=== PATIENT | female | born 1945 | race Caucasian/White ===

== ENCOUNTER 2016-09-10 09:51 | Outpatient (CLI) | payer MEDICARE, OTHER | END 2016-09-10 09:52 | disposition home or self-care (01) | DX: N39.0 Urinary tract infection, site not specified (principal) ==

== ENCOUNTER 2016-10-10 09:38 | Inpatient (IN) | payer MEDICARE, OTHER ==
[2016-10-10] MEDS ORDERED: ONDANSETRON ODT 4 MG TABLET ONE (11:32)
[2016-10-10] MEDS ORDERED: SODIUM CHLORIDE FLUSH 0.9% 10 ML SYRINGE IVP PRN (14:22)
[2016-10-10] MEDS: NS W/20 MEQ KCL 1,000 ML IV SCH (16:20)
[2016-10-10] MEDS ORDERED: cefTRIAXone 1 GM VIAL IV SCH (17:00)
[2016-10-10] MEDS: PHENAZOPYRIDINE 100 MG TABLET PO SCH ×2 (18:50→21:03)
[2016-10-10] MEDS: cefTRIAXone 1 GM in SODIUM CHLORIDE 0.9% MINIBAG 100 ML IV SCH (18:54)
[2016-10-10] MEDS: PANTOPRAZOLE 40 MG TABLET PO SCH (20:30)
[2016-10-10] MEDS: valACYclovir 500 MG TABLET PO SCH (20:30)
[2016-10-10] MEDS: CARVEDILOL 3.125 MG TABLET PO SCH (20:30)
[2016-10-10] MEDS: ATORVASTATIN 10 MG TABLET PO SCH (20:30)
[2016-10-10] MEDS: ONDANSETRON 4 MG/2 ML VIAL IVP PRN (20:43)
[2016-10-10] MEDS: SODIUM CHLORIDE FLUSH 0.9% 10 ML SYRINGE IVP SCH (20:45)
[2016-10-10] MEDS: POTASSIUM CHLORIDE 20 MEQ TABLET PO SCH (20:52)
[2016-10-10] MEDS ORDERED: MYCOPHENOLATE MOFETIL 250 MG CAPSULE PO ONE (20:58)
[2016-10-10] MEDS ORDERED: NON FORMULARY MED (Dronedarone Hcl [Multaq] 400 MG) PO SCH (21:00)
[2016-10-10] MEDS: MYCOPHENOLATE MOFETIL 1000 MG PO SCH (21:05)
[2016-10-11] MEDS: NS W/20 MEQ KCL 1,000 ML IV SCH ×2 (04:12→10:51)
[2016-10-11] MEDS: ONDANSETRON 4 MG/2 ML VIAL IVP PRN (07:02)
[2016-10-11] MEDS ORDERED: MIN OIL/DIMETHICON/COCONUT OIL 92 GM TUBE TOP ONE (08:20)
[2016-10-11] MEDS: valACYclovir 500 MG TABLET PO SCH ×2 (08:24→21:36)
[2016-10-11] MEDS: PHENAZOPYRIDINE 100 MG TABLET PO SCH ×3 (08:24→21:39)
[2016-10-11] MEDS: ASPIRIN EC 81 MG TABLET PO SCH (08:25)
[2016-10-11] MEDS: DULoxetine 30 MG CAPSULE PO SCH (08:25)
[2016-10-11] MEDS: CHOLECALCIFEROL 1,000 UNIT TABLET PO SCH (08:25)
[2016-10-11] MEDS: predniSONE 5 MG TABLET PO SCH (08:25)
[2016-10-11] MEDS: PANTOPRAZOLE 40 MG TABLET PO SCH ×2 (08:25→21:38)
[2016-10-11] MEDS: FERROUS SULFATE 325 MG TABLET PO SCH (08:25)
[2016-10-11] MEDS: MULTIVITAMIN TABLET PO SCH (08:25)
[2016-10-11] MEDS: POTASSIUM CHLORIDE 20 MEQ TABLET PO SCH ×2 (08:25→21:38)
[2016-10-11] MEDS: ENOXAPARIN 40 MG/0.4 ML SYRINGE SUBQ SCH (08:25)
[2016-10-11] MEDS: CYANOCOBALAMIN 500 MCG TABLET PO SCH (08:25)
[2016-10-11] MEDS: POLYETHYLENE GLYCOL 3350 17 GM PACKET PO SCH ×2 (08:26→08:27)
[2016-10-11] MEDS: MULTAQ 400 MG PO SCH ×4 (08:28→21:35)
[2016-10-11] MEDS: SODIUM CHLORIDE FLUSH 0.9% 10 ML SYRINGE IVP SCH ×3 (08:29→21:59)
[2016-10-11] MEDS: MYCOPHENOLATE MOFETIL 1000 MG PO SCH (08:29)
[2016-10-11] MEDS: CARVEDILOL 3.125 MG TABLET PO SCH ×2 (08:30→21:37)
[2016-10-11] MEDS ORDERED: NON FORMULARY MED (Mirabegron [Myrbetriq] 50 MG) PO SCH (09:00)
[2016-10-11] MEDS ORDERED: VITAMIN B COMPLEX PO SCH (09:00)
[2016-10-11] MEDS: MYCOPHENOLATE MOFETIL 250 MG CAPSULE PO SCH ×2 (10:49→21:36)
[2016-10-11] MEDS: cefTRIAXone 1 GM in SODIUM CHLORIDE 0.9% MINIBAG 100 ML IV SCH (16:59)
[2016-10-11] MEDS: ATORVASTATIN 10 MG TABLET PO SCH (21:35)
[2016-10-12] MEDS: NS W/20 MEQ KCL 1,000 ML IV SCH ×3 (00:23→21:14)
[2016-10-12] MEDS: SODIUM CHLORIDE FLUSH 0.9% 10 ML SYRINGE IVP SCH ×2 (06:30→08:18)
[2016-10-12] MEDS: PHENAZOPYRIDINE 100 MG TABLET PO SCH ×3 (06:34→21:14)
[2016-10-12] MEDS: FERROUS SULFATE 325 MG TABLET PO SCH (08:14)
[2016-10-12] MEDS: DULoxetine 30 MG CAPSULE PO SCH (08:14)
[2016-10-12] MEDS: MULTAQ 400 MG PO SCH ×2 (08:14→21:20)
[2016-10-12] MEDS: MULTIVITAMIN TABLET PO SCH (08:15)
[2016-10-12] MEDS: ASPIRIN EC 81 MG TABLET PO SCH (08:15)
[2016-10-12] MEDS: CARVEDILOL 3.125 MG TABLET PO SCH ×2 (08:15→21:15)
[2016-10-12] MEDS: CHOLECALCIFEROL 1,000 UNIT TABLET PO SCH (08:15)
[2016-10-12] MEDS: MYCOPHENOLATE MOFETIL 250 MG CAPSULE PO SCH ×2 (08:15→21:15)
[2016-10-12] MEDS: PANTOPRAZOLE 40 MG TABLET PO SCH ×2 (08:15→21:15)
[2016-10-12] MEDS: valACYclovir 500 MG TABLET PO SCH ×2 (08:15→21:15)
[2016-10-12] MEDS: predniSONE 5 MG TABLET PO SCH (08:16)
[2016-10-12] MEDS: POLYETHYLENE GLYCOL 3350 17 GM PACKET PO SCH ×2 (08:16→08:18)
[2016-10-12] MEDS: CYANOCOBALAMIN 500 MCG TABLET PO SCH (08:16)
[2016-10-12] MEDS: ENOXAPARIN 40 MG/0.4 ML SYRINGE SUBQ SCH (08:17)
[2016-10-12] MEDS: cefTRIAXone 1 GM in SODIUM CHLORIDE 0.9% MINIBAG 100 ML IV SCH (17:09)
[2016-10-12] MEDS: SACCHAROMYCES BOULARDII 250 MG CAPSULE PO SCH (17:09)
[2016-10-12] MEDS: ATORVASTATIN 10 MG TABLET PO SCH (21:16)
[2016-10-13] MEDS: SODIUM CHLORIDE FLUSH 0.9% 10 ML SYRINGE IVP SCH ×4 (00:18→22:22)
[2016-10-13] MEDS ORDERED: COSYNTROPIN 0.25 MG VIAL IVP ONE (05:01)
[2016-10-13] MEDS: PHENAZOPYRIDINE 100 MG TABLET PO SCH ×3 (05:13→22:21)
[2016-10-13] MEDS: NS W/20 MEQ KCL 1,000 ML IV SCH (06:54)
[2016-10-13] MEDS: ONDANSETRON 4 MG/2 ML VIAL IVP PRN (07:05)
[2016-10-13] MEDS ORDERED: PROCHLORPERAZINE 10 MG/2 ML VIAL IVP PRN (08:18)
[2016-10-13] MEDS: ACETAMINOPHEN 325 MG TABLET PO PRN ×2 (08:42→13:33)
[2016-10-13] MEDS: oxyCODONE 5 MG TABLET PO PRN ×2 (08:43→13:34)
[2016-10-13] MEDS: ENOXAPARIN 40 MG/0.4 ML SYRINGE SUBQ SCH (09:55)
[2016-10-13] MEDS: predniSONE 5 MG TABLET PO SCH (09:56)
[2016-10-13] MEDS: SACCHAROMYCES BOULARDII 250 MG CAPSULE PO SCH ×2 (09:56→17:37)
[2016-10-13] MEDS: CHOLECALCIFEROL 1,000 UNIT TABLET PO SCH (09:56)
[2016-10-13] MEDS: PANTOPRAZOLE 40 MG TABLET PO SCH ×2 (09:56→22:19)
[2016-10-13] MEDS: CARVEDILOL 3.125 MG TABLET PO SCH ×2 (09:56→22:19)
[2016-10-13] MEDS: FERROUS SULFATE 325 MG TABLET PO SCH (09:56)
[2016-10-13] MEDS: DULoxetine 30 MG CAPSULE PO SCH (09:56)
[2016-10-13] MEDS: valACYclovir 500 MG TABLET PO SCH ×2 (09:57→22:20)
[2016-10-13] MEDS: MULTIVITAMIN TABLET PO SCH (09:57)
[2016-10-13] MEDS: CYANOCOBALAMIN 500 MCG TABLET PO SCH (09:57)
[2016-10-13] MEDS: MYCOPHENOLATE MOFETIL 250 MG CAPSULE PO SCH ×2 (09:57→22:20)
[2016-10-13] MEDS: MULTAQ 400 MG PO SCH ×2 (09:57→22:22)
[2016-10-13] MEDS: ASPIRIN EC 81 MG TABLET PO SCH (09:57)
[2016-10-13] MEDS: POLYETHYLENE GLYCOL 3350 17 GM PACKET PO SCH ×2 (10:04)
[2016-10-13] MEDS: cefTRIAXone 1 GM in SODIUM CHLORIDE 0.9% MINIBAG 100 ML IV SCH (17:37)
[2016-10-13] MEDS: ATORVASTATIN 10 MG TABLET PO SCH (22:19)
[2016-10-14] MEDS: PHENAZOPYRIDINE 100 MG TABLET PO SCH ×2 (05:28→14:28)
[2016-10-14] MEDS: ONDANSETRON 4 MG/2 ML VIAL IVP PRN (08:06)
[2016-10-14] MEDS: CYANOCOBALAMIN 500 MCG TABLET PO SCH (09:25)
[2016-10-14] MEDS: MULTIVITAMIN TABLET PO SCH (09:25)
[2016-10-14] MEDS: PANTOPRAZOLE 40 MG TABLET PO SCH (09:25)
[2016-10-14] MEDS: valACYclovir 500 MG TABLET PO SCH (09:25)
[2016-10-14] MEDS: CHOLECALCIFEROL 1,000 UNIT TABLET PO SCH (09:25)
[2016-10-14] MEDS: ASPIRIN EC 81 MG TABLET PO SCH (09:25)
[2016-10-14] MEDS: CARVEDILOL 3.125 MG TABLET PO SCH (09:26)
[2016-10-14] MEDS: MYCOPHENOLATE MOFETIL 250 MG CAPSULE PO SCH (09:26)
[2016-10-14] MEDS: SACCHAROMYCES BOULARDII 250 MG CAPSULE PO SCH (09:26)
[2016-10-14] MEDS: DULoxetine 30 MG CAPSULE PO SCH (09:26)
[2016-10-14] MEDS: predniSONE 5 MG TABLET PO SCH (09:26)
[2016-10-14] MEDS: FERROUS SULFATE 325 MG TABLET PO SCH (09:26)
[2016-10-14] MEDS: ENOXAPARIN 40 MG/0.4 ML SYRINGE SUBQ SCH (09:30)
[2016-10-14] MEDS: POLYETHYLENE GLYCOL 3350 17 GM PACKET PO SCH ×2 (09:30)
[2016-10-14] MEDS: MULTAQ 400 MG PO SCH (09:31)
[2016-10-14] MEDS ORDERED: DIPHENOX/ATROPINE 2.5/0.025 MG TABLET PO PRN (10:34)
[2016-10-14] MEDS ORDERED: CHOLESTYRAMINE 4 GM PACKET PO SCH (11:00)
[2016-10-14] MEDS: SODIUM CHLORIDE FLUSH 0.9% 10 ML SYRINGE IVP SCH (14:29)
[2016-10-14] MEDS: cefTRIAXone 1 GM in SODIUM CHLORIDE 0.9% MINIBAG 100 ML IV SCH (17:02)
== END 2016-10-14 18:15 | disposition home or self-care (01) | DRG 690 ==
DX: N39.0 Urinary tract infection, site not specified (principal); E27.3 Drug-induced adrenocortical insufficiency; B96.20 Unspecified Escherichia coli [E. coli] as the cause of diseases classified elsewhere; R19.7 Diarrhea, unspecified; G89.29 Other chronic pain; E86.0 Dehydration; G47.30 Sleep apnea, unspecified; T38.0X5S Adverse effect of glucocorticoids and synthetic analogues, sequela; M35.00 Sjogren syndrome, unspecified; G62.9 Polyneuropathy, unspecified; E78.5 Hyperlipidemia, unspecified; F32.9 Major depressive disorder, single episode, unspecified; R32 Unspecified urinary incontinence; I45.81 Long QT syndrome; Z96.89 Presence of other specified functional implants; Z87.442 Personal history of urinary calculi; Z98.1 Arthrodesis status; Z79.52 Long term (current) use of systemic steroids; Z79.82 Long term (current) use of aspirin; Z87.891 Personal history of nicotine dependence; Z79.899 Other long term (current) drug therapy; Z79.891 Long term (current) use of opiate analgesic

== ENCOUNTER 2016-11-23 14:55 | Outpatient (CLI) | payer MEDICARE, OTHER | END 2016-11-23 14:56 | disposition home or self-care (01) | DX: G47.33 Obstructive sleep apnea (adult) (pediatric) (principal) | CPT/HCPCS: 99203; G0463 ==

== ENCOUNTER 2016-12-16 21:12 | Outpatient (CLI) | payer MEDICARE, OTHER | END 2016-12-16 21:13 | disposition home or self-care (01) | LOC: SC 21:12 | PROVIDERS: ATTEND Internal Medicine Pulmonary Disease | DX: G47.33 Obstructive sleep apnea (adult) (pediatric) (principal); G47.61 Periodic limb movement disorder; Z68.31 Body mass index [BMI] 31.0-31.9, adult | CPT/HCPCS: 95810 ==

== ENCOUNTER 2017-01-05 13:37 | Outpatient (CLI) | payer MEDICARE, OTHER | END 2017-01-05 13:38 | disposition home or self-care (01) | LOC: SC 13:37 | PROVIDERS: ATTEND Nurse Practitioner Family | DX: G47.33 Obstructive sleep apnea (adult) (pediatric) (principal); G47.61 Periodic limb movement disorder | CPT/HCPCS: 99213; G0463; 99212 ==

== ENCOUNTER 2017-01-17 16:46 | Emergency (ER) | payer MEDICARE, OTHER ==
--- NOTE | 2017-01-17 16:59 | ED Physician Documentation ---
PD HPI SKIN - Stated complaint Stated Complaint: NECK PAIN - Chief complaint Chief Complaint: Ext Problem - History obtained from History obtained from: Patient - History of Present Illness Timing - onset: How many days ago (3) Timing - duration: Days (3) Timing - details: Gradual onset (she has had tenderness at area of neck surgery with thin skin overlying area of bone and prior surgical fusions that had gotten infected. She has seen her neck surgeon and there is plan for revison of the hardware and muscle flapping over the area to provide some tissue cushion in the area. She is not noticing 3 days of some drainage at times from small red area that has developed. No general symptoms such as fever, nausea, aches.) , Waxing and waning Location: Neck Quality / character: Draining (small drop of fluid intermittently for the past 3 days. She says the whole 3 days worth total would be only about a teaspoon.). No: Painful Associated symptoms: No: Fever, Myalgias, N/V/D Similar symptoms before: Diagnosis (she did have MRSA infection of neck post-op and had 3 months of IV abx for it to clear. Had been doing well in the interval. ) Recently seen: Clinic Review of Systems Constitutional: denies: Fever, Chills, Myalgias Nose: reports: Congestion (2 weeks ago, improved.). 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 Cardiovascular: Other HEENT: Cataracts Derm: Other - Present Medications Home Medications: Ambulatory Orders Medication Instructions Recorded Confirmed Atorvastatin Calcium [Lipitor] 20 mg PO QPM 05/31/13 10/10/16 Carvedilol [Coreg] 12.5 mg PO BID 05/31/13 10/10/16 Mycophenolate Mofetil [Cellcept] 1,000 mg PO BID 05/31/13 10/10/16 Pantoprazole Sodium 40 mg PO BID 05/31/13 10/10/16 Potassium Chloride [K-Dur] 10 meq PO BID 05/31/13 10/10/16 Cholecalciferol (Vitamin D3) 2,000 unit PO DAILY 08/08/15 10/10/16 [Vitamin D3] Cyanocobalamin (Vitamin B-12) 1,000 mcg PO DAILY 08/08/15 10/10/16 [Vitamin B-12] Dronedarone HCl [Multaq] 400 mg PO BID 08/08/15 10/10/16 HYDROmorphone AGRICULTURE INTERN [Dilaudid AGRICULTURE INTERN 6.859 mg IV Q24H 08/08/15 10/10/16 (Use AGRICULTURE INTERN Order Set)] Mirabegron [Myrbetriq] 50 mg PO DAILY 08/08/15 10/10/16 Vitamin B Complex [B Complex] 1 each PO DAILY 08/08/15 10/10/16 Aspirin [Aspirin EC] 81 mg PO DAILY 10/10/16 10/10/16 Duloxetine HCl [Cymbalta] 60 mg ORAL DAILY 10/10/16 10/10/16 Ferrous Sulfate 325 mg PO DAILY 10/10/16 10/10/16 Multivitamin [Theragran] 1 tab PO DAILY 10/10/16 10/10/16 Polyethylene Glycol 3350 [Miralax] 17 gm PO DAILY 10/10/16 10/10/16 Prednisone 5 mg PO DAILY 10/10/16 10/10/16 Valacyclovir HCl [Valacyclovir] 500 mg PO BID 10/10/16 10/10/16 Cholestyramine [Questran] 4 gm PO BID #30 packet 10/14/16 Diphenoxylate/Atropine [Lomotil] 1 tab PO QID PRN #60 tablet 10/14/16 Nitrofurantoin Macrocrystal 100 mg PO BID #6 capsule 10/14/16 [Macrodantin] Mupirocin 1 applic TP TID #15 oint...g. 01/17/17 Sulfamethox/Trimeth 800/160 1 each PO BID #14 tablet 01/17/17 [Bactrim Ds 800/160] - Allergies Allergies/Adverse Reactions: Allergies Allergy/AdvReac Type Severity Reaction Status Date / Time iodine Allergy Rash Verified 10/10/16 09:41 NSAIDS (Non-Steroidal Allergy abd pain Verified 10/10/16 09:41 Anti-Inflamma pregabalin [From Lyrica] Allergy muscle Verified 08/08/15 13:07 spasms zolpidem tartrate * AdvReac Hallucinati Verified 10/10/16 09:41 [From Kd] ons artichokes Allergy Unknown Uncoded 10/11/16 12:00 cantelope Allergy Unknown Uncoded 10/11/16 12:00 shellfish Allergy Unknown Uncoded 10/11/16 12:00 - Social History Does the pt smoke?: No Smoking Status: Former smoker Does the pt drink ETOH?: No Does the pt have substance abuse?: No - Immunizations Immunizations are current?: Yes PD ED PE NORMAL - Vitals Vital signs reviewed: Yes - General General: Alert and oriented X 3, Well developed/nourished - Neck Neck: Supple, no meningeal sign, No adenopathy, Other (posterior neck at lower cervical showing thin skin overlying spinous processes. There is focal area of redness about 1 cm diameter, without fluctuance nor current drainage. Small closed hole in center. No tenderness. I did small misael with scalpel tip at center and no fluid came out, but I did culture from the subcutaneous area. ) Results - Vitals Vitals: Vital Signs - 24 hr 01/17/17 01/17/17 16:53 18:56 Temperature 36.5 C Heart Rate 74 79 Respiratory 16 18 Rate Blood Pressure 108/54 L 122/79 O2 Saturation 98 98 Oxygen O2 Source Room air - Labs Labs: Laboratory Tests 01/17/17 01/17/17 01/17/17 17:54 17:54 17:54 WBC 6.6 RBC 3.18 L Hgb 10.2 L Hct 32.1 L MCV 100.9 H MCH 32.2 H MCHC 31.9 L RDW 14.3 Plt Count 238 MPV 8.4 Neut # 4.8 Lymph # 1.0 L Clarke # 0.5 Eos # 0.2 Baso # 0.1 Absolute Nucleated RBC 0.00 Nucleated RBCs 0.0 ESR 31 H C-Reactive Protein < 1.0 - Rads (name of study) cervical spine Radiology: Prelim report reviewed, EMP read contemporaneously (operative changes. There is thin soft tissue over C7 spinous process. Small area of air under skin at site I had swabbed. No obvious abscess underneath. ) PD MEDICAL DECISION MAKING - ED course Complexity details: considered differential (mild elevate ESR. CT does not show deeper involvement. Will cover with abx pending culture, with Staph coverage in particular. She is seeing Spine surgeon next week, but to have her call and see him this week. ), d/w patient Departure - Departure Disposition: Home, Self Care Clinical Impression: Skin infection Condition: Stable Record reviewed to determine appropriate education?: Yes Instructions: ED Abscess Abx Tx Only Ch Follow-Up: Gama Juan MD [Primary Care Provider] - Prescriptions: Sulfamethox/Trimeth 800/160 [Bactrim Ds 800/160] 1 each PO BID #14 tablet Mupirocin 1 applic TP TID #15 oint...g. Comments: Cleanse the sore area twice daily and apply mupirocin antibiotic ointment. Bactrim oral antibiotic twice daily for a week. Follow up with PMD or Neck surgeon in 2-3 days, call for appt. Recheck if worsening in the meanwhile. Discharge Date/Time: 01/17/17 18:57
[2017-01-17 18:13] LABS: BASOPHILS # (AUTO) 0.1 10^3/uL (0.0-0.1); BASOPHILS % (AUTO) 1.4 %; EOSINOPHILS # (AUTO) 0.2 10^3/uL (0.0-0.7); EOSINOPHILS % (AUTO) 3.1 %; HCT - HEMATOCRIT 32.1 % (37.0-47.0); HGB - HEMOGLOBIN 10.2 g/dL (12.0-16.0); LYMPHOCYTES % (AUTO) 14.7 %; MEAN CORPUSCULAR HEMOGLOBIN 32.2 pg (27.0-31.0); MEAN CORPUSCULAR HGB CONC 31.9 g/dL (32.0-36.0); MEAN CORPUSCULAR VOLUME 100.9 fL (81.0-99.0); MEAN PLATELET VOLUME 8.4 fL (7.9-10.8); MONOCYTES # (AUTO) 0.5 10^3/uL (0.0-1.0); MONOCYTES % (AUTO) 7.2 %; NEUTROPHILS # (AUTO) 4.8 10^3/uL (1.5-6.6); NEUTROPHILS % (AUTO) 73.6 %; RED BLOOD COUNT 3.18 10^6/uL (4.20-5.40); RED CELL DISTRIBUTION WIDTH 14.3 % (12.0-15.0); UNCORRECTED WHITE BLOOD COUNT 6.6 x10^3/uL; WHITE BLOOD COUNT 6.6 x10^3/uL (4.8-10.8)
--- NOTE | 2017-01-17 18:29 | CT Preliminary Report ---
Exam: CT Cervical Spine W/O Impression: 1. Extensive postsurgical changes are again demonstrated, as documented above. 2. There appears be solid interbody fusion from C3-C7. 3. Changes of previous instrumented, posterolateral fusion again demonstrated from C2-T2. No evidence of metal hardware failure. 4. It is noted that the distal tip of the T1 spinous process lies just deep to the skin surface in mi dline, lower back. In addition, there appears be a small collection of gas within the soft tissues ad jacent to the spinous process. This suggests the possibility of ulceration. Clinical correlation is a dvised. SITE ID: [id number]
[2017-01-17] MEDS ORDERED: MUPIROCIN 2% OINT 1 GM TOP STA (18:44)
[2017-01-17] MEDS ORDERED: SULFAMETH/TRIMETH DS 800/160 MG TABLET PO STA (18:44)
[2017-01-17] MEDS ORDERED: SULFAMETH/TRIMETH DS 800/160 MG TABLET PO ONE (18:47)
[2017-01-17] MEDS ORDERED: MUPIROCIN 2% OINT 1 GM ONE (18:50)
[2017-01-17 18:57] VITALS: BP 122/79
--- NOTE | 2017-01-17 19:48 | CT Report ---
CT CERVICAL SPINE WITHOUT CONTRAST INDICATION: 71-year-old female with history of previous neck surgery. The patient's skin is sore at a bout C7. TECHNIQUE: Helical scan with reconstruction into 2 mm axial images. In addition, sagittal and coronal reformations have been generated. This examination was performed using a bone algorithm. Images are available in soft tissue and bone w indows. In accordance with CT protocol optimization, one or more of the following dose reduction techniques w ere utilized for this exam: automated exposure control, adjustment of mA and/or KV based on patient s ize, or use of iterative reconstructive technique. COMPARISON: Soft tissue neck CT 10/28/2014. FINDINGS: Extensive postsurgical changes are again demonstrated. There is evidence of previous anterior cervica l diskectomy and fusion (ACDF) at C4-C5, C5-C6 and C6-C7. There does appear to be trabecular bone tra versing the disk spaces at all 3 levels suggesting that there is solid interbody fusion. Also demonst rated is probable ankylosis across the C3-C4 disk space. It is unclear whether this relates to prior surgery or represents the sequela of previous infection, prior trauma or advanced degenerative disk d isease. There is evidence of previous bilateral laminectomy at C3, C4 and C5. Again demonstrated are changes of previous instrumented, posterolateral fusion from C2 to T2. Laminar screws again demonstrated at C 2 bilaterally with lateral mass screws at C3, C4, C5 and C6 bilaterally. Pedicle screws are again dem onstrated at T1 and T2. There are interconnecting rods in place bilaterally. The posterior fusion sushma dware appears intact. No obvious lucency is identified, surrounding any of the screws to suggest the possibility of loosening or infection. Again demonstrated is grade 1 anterolisthesis of C2 on C3 (roughly 2.5 mm) and minimal anterolisthesi s of C3 on C4, stable. There is a mild dextroconvex scoliosis, unchanged. Alignment is otherwise unre markable. Assessment for spinal stenosis is very limited due to artifact from fusion hardware; however, no obvi ous stenosis is demonstrated. There is multilevel degenerative facet arthrosis with associated bony h ypertrophy. In addition, there is mild uncovertebral hypertrophy at a few levels. No significant asso ciated foraminal encroachment. Of note, the distal tip of the T1 spinous process lies just deep to the skin surface. There appears b e a small collection of gas, within the soft tissues, adjacent to the distal tip of the T1 spinous pr ocess on the right (see images 72 through 74 of series #4). This suggests the possibility of ulcer or other pathology in the soft tissues adjacent to the T1 spinous process. No obvious pathology is iden tified in the soft tissues adjacent to C7. There is minor scarring at the right lung apex. No discrete mass/nodule is identified in the imaged u pper lungs. IMPRESSION: 1. Extensive postsurgical changes are again demonstrated, as documented above. 2. There appears be solid interbody fusion from C3-C7. 3. Changes of previous instrumented, posterolateral fusion again demonstrated from C2-T2. No evidence of metal hardware failure. 4. It is noted that the distal tip of the T1 spinous process lies just deep to the skin surface in mi dline, lower back. In addition, there appears be a small collection of gas within the soft tissues ad jacent to the spinous process. This suggests the possibility of ulceration. Clinical correlation is a dvised. Referring Provider Line: [phone] SITE ID: [id number]
== END 2017-01-17 18:57 | disposition home or self-care (01) ==
LOC: ED 16:46
DX: L08.9 Local infection of the skin and subcutaneous tissue, unspecified (principal); M54.2 Cervicalgia; Z98.1 Arthrodesis status; Z86.14 Personal history of Methicillin resistant Staphylococcus aureus infection; Z87.891 Personal history of nicotine dependence; Z79.82 Long term (current) use of aspirin
CPT/HCPCS: 36415; 72125; 85025; 85651; 86140; 87070; 87205; 99283; 99284; A9270

== ENCOUNTER 2017-01-18 14:22 | Outpatient (CLI) | payer MEDICARE, OTHER ==
--- NOTE | 2017-01-19 13:52 | XRAY Report ---
TWO VIEW CHEST: 01/18/2017 CLINICAL INDICATION: Pneumonia, history of lupus. COMPARISON: 10/10/2016. FINDINGS: Frontal and lateral views of the chest demonstrate a normal cardiac silhouette. A right ar m PICC has been removed. Spinal fusion hardware and stimulator are stable. There is minimal patchy ai r space disease at the bases, which may reflect early infiltrate. No effusion or pneumothorax is pres ent. IMPRESSION: MINIMAL PATCHY AIR SPACE OPACITIES AT THE BASES. JOB #: [id number] EXT JOB #:[id number]
--- NOTE | 2017-01-19 13:54 | XRAY Report ---
THREE VIEW RIGHT KNEE: 01/18/2017 CLINICAL INDICATION: Knee pain, history of lupus. FINDINGS: Frontal, lateral and sunrise views of the right knee demonstrate mild osteoarthritis, with chondrocalcinosis. There is no evidence of acute fracture. No effusion is seen. IMPRESSION: MILD RIGHT KNEE OSTEOARTHRITIS. JOB #: [id number] EXT JOB #:[id number]
== END 2017-01-18 14:23 | disposition home or self-care (01) ==
LOC: DI 14:22
PROVIDERS: ATTEND Family Medicine
DX: J18.9 Pneumonia, unspecified organism (principal); M17.11 Unilateral primary osteoarthritis, right knee; M32.10 Systemic lupus erythematosus, organ or system involvement unspecified
CPT/HCPCS: 71020

== ENCOUNTER 2017-02-09 22:15 | Outpatient (CLI) | payer MEDICARE, OTHER | END 2017-02-09 22:16 | disposition home or self-care (01) | LOC: SC 22:15 | PROVIDERS: ATTEND Internal Medicine Pulmonary Disease | DX: G47.33 Obstructive sleep apnea (adult) (pediatric) (principal); G47.61 Periodic limb movement disorder; Z68.31 Body mass index [BMI] 31.0-31.9, adult | CPT/HCPCS: 95811 ==

== ENCOUNTER 2017-02-28 15:01 | Outpatient (CLI) | payer MEDICARE, OTHER ==
[2017-02-28 20:19] LABS: THYROID STIMULATING HORMONE 1.25 uIU/mL (0.34-5.60)
== END 2017-02-28 15:02 | disposition home or self-care (01) ==
LOC: LAB.F 15:01
PROVIDERS: ATTEND Internal Medicine
DX: R06.09 Other forms of dyspnea (principal)
CPT/HCPCS: 36415; 83880; 84439; 84443

== ENCOUNTER 2017-03-02 10:30 | Outpatient (CLI) | payer MEDICARE, OTHER | END 2017-03-02 10:31 | disposition critical access hospital (66) | LOC: EMS 10:30 | PROVIDERS: ATTEND Surgery | DX: R25.2 Cramp and spasm (principal) | CPT/HCPCS: A0425; A0429 ==

== ENCOUNTER 2017-03-02 10:40 | Emergency (ER) | payer MEDICARE, OTHER ==
[2017-03-02] MEDS ORDERED: ACETAMINOPHEN 1,000 MG/100 ML 100 ML IV STA (10:46)
[2017-03-02] MEDS ORDERED: SODIUM CHLORIDE 0.9% 1,000 ML IV ONE (10:46)
[2017-03-02] MEDS ORDERED: diazePAM INJ 5 MG/ML SYRINGE IVP STA (10:46)
--- NOTE | 2017-03-02 10:50 | ED Physician Documentation ---
History of Present Illness - Stated complaint Stated Complaint: MALONE - Chief complaint Chief Complaint: General - Additonal information Additional information: hx from pt 71 f many orthopedic issues and surgeries in the past, healing wound to upper T spine scar seen by her specialist yesterday also adrenal insuff 2/2 steroids for her interstitial lung dz on cellcept for lupus has a neurostimulator and dilaudid pump for back problems - she says both are working normally she saw her specialist yesterday and they have alarms if malfunction or empty takes lasix and her dose was recently increased had int sharp Headaches yesterday in varying locations woke up this AM with a severe diffuse MALONE no focal numbness or weakness no fever or new neck stiffness (prior ortho and spine issues) no CO exposure no ill contacts and also severe diffuse mm cramps she thinks her electrolytes are off no fever cough NVD Review of Systems Constitutional: denies: Fever, Chills Cardiac: denies: Chest pain / pressure Respiratory: denies: Dyspnea, Cough GI: denies: Abdominal Pain, Nausea, Vomiting Musculoskeletal: reports: Other (mm cramps). denies: Neck pain, Back pain Neurologic: reports: Headache. 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 Cardiovascular: Other HEENT: Cataracts Derm: Other - Present Medications Home Medications: Ambulatory Orders Medication Instructions Recorded Confirmed Atorvastatin Calcium [Lipitor] 20 mg PO QPM 05/31/13 03/02/17 Carvedilol [Coreg] 12.5 mg PO BID 05/31/13 03/02/17 Mycophenolate Mofetil [Cellcept] 1,000 mg PO BID 05/31/13 03/02/17 Pantoprazole Sodium 40 mg PO DAILY 05/31/13 03/02/17 Potassium Chloride [K-Dur] 10 meq PO BID 05/31/13 03/02/17 Cholecalciferol (Vitamin D3) 2,000 unit PO DAILY 08/08/15 03/02/17 [Vitamin D3] Cyanocobalamin (Vitamin B-12) 1,000 mcg PO DAILY 08/08/15 03/02/17 [Vitamin B-12] Dronedarone HCl [Multaq] 400 mg PO BID 08/08/15 03/02/17 Vitamin B Complex [B Complex] 1 each PO DAILY 08/08/15 03/02/17 Aspirin [Aspirin EC] 81 mg PO DAILY 10/10/16 03/02/17 Duloxetine HCl [Cymbalta] 60 mg ORAL DAILY 10/10/16 03/02/17 Ferrous Sulfate 45 mg PO DAILY 10/10/16 03/02/17 Multivitamin [Theragran] 1 tab PO DAILY 10/10/16 03/02/17 Prednisone 5 mg PO DAILY 10/10/16 03/02/17 Valacyclovir HCl [Valacyclovir] 500 mg PO BID 10/10/16 03/02/17 Diphenoxylate/Atropine [Lomotil] 1 tab PO QID PRN #60 tablet 10/14/16 03/02/17 Mupirocin 1 applic TP TID #15 oint...g. 01/17/17 03/02/17 Acetaminophen 2 tab TID PRN 03/02/17 03/02/17 Ascorbic Acid [Vitamin C] 2 tab DAILY 03/02/17 03/02/17 Calcium 500 Mg Gummie 1 tab DAILY 03/02/17 Cephalexin [Keflex] 500 mg PO Q6H #28 capsule 03/02/17 Cyanocobalamin (Vitamin B-12) 1 tab DAILY 03/02/17 03/02/17 [Vitamin B-12] Diphenoxylate/Atropine [Lomotil] 1 tab PRN PRN 03/02/17 03/02/17 Dronedarone HCl [Multaq] 1 tab BID 03/02/17 03/02/17 Furosemide [Lasix] 20 mg DAILY 03/02/17 03/02/17 Hydromorphone HCl/0.9% NaCl/Pf 0 mg DAILY 03/02/17 03/02/17 [Hydromorphone 20 mg/100 ml-Ns] Lactobacillus Acidophilus 1 tab DAILY 03/02/17 03/02/17 [Probiotic Acidophilus] Ondansetron Odt [Zofran Odt] 1 tab PRN 03/02/17 Polyethylene Glycol 3350 [Miralax] 1 tab DAILY 03/02/17 03/02/17 - Allergies Allergies/Adverse Reactions: Allergies Allergy/AdvReac Type Severity Reaction Status Date / Time iodine Allergy Rash Verified 10/10/16 09:41 NSAIDS (Non-Steroidal Allergy abd pain Verified 10/10/16 09:41 Anti-Inflamma pregabalin [From Lyrica] Allergy muscle Verified 08/08/15 13:07 spasms zolpidem tartrate * AdvReac Hallucinati Verified 10/10/16 09:41 [From Ambien] ons artichokes Allergy Unknown Uncoded 10/11/16 12:00 cantelope Allergy Unknown Uncoded 10/11/16 12:00 shellfish Allergy Unknown Uncoded 10/11/16 12:00 - Social History Does the pt smoke?: No Smoking Status: Former smoker Does the pt drink ETOH?: No Does the pt have substance abuse?: No - Immunizations Immunizations are current?: Yes PD ED PE NORMAL - Vitals Vital signs reviewed: Yes - General General: Alert and oriented X 3 - HEENT HEENT: Atraumatic, PERRL, EOMI, Other (globes soft, no injection, no TA TTP) - Neck Neck: Supple, no meningeal sign, Other (open but non erthematous small wound along midline upper t spine surgical sca, no purulent drainage) - Cardiac Cardiac: RRR - Respiratory Respiratory: No respiratory distress, Clear bilaterally - Abdomen Abdomen: Soft, Non tender - Derm Derm: Normal color - Extremities Extremities: No deformity - Neuro Neuro: Other (occasianlly cries and and has a mm spasm adn then relaxes, nl speech, no motor sensory deficits) Results - Vitals Vitals: Vital Signs - 24 hr 03/02/17 03/02/17 03/02/17 10:41 11:50 11:55 Temperature 37.0 C Heart Rate 86 Respiratory 18 Rate Blood Pressure 137/51 H O2 Saturation 95 88 L 93 03/02/17 12:16 Temperature Heart Rate 93 Respiratory 16 Rate Blood Pressure 113/48 L O2 Saturation 98 Oxygen O2 Source Nasal cannula - Labs Labs: Laboratory Tests 03/02/17 03/02/17 03/02/17 11:19 11:19 12:30 WBC 7.1 RBC 3.15 L Hgb 10.2 L Hct 31.6 L MCV 100.3 H MCH 32.2 H MCHC 32.1 RDW 14.7 Plt Count 196 MPV 7.9 Neut # 6.1 Lymph # 0.7 L Garza # 0.2 Eos # 0.1 Baso # 0.0 Absolute Nucleated RBC 0.00 Nucleated RBCs 0.0 Sodium 142 Potassium 3.5 Chloride 107 Carbon Dioxide 29 Anion Gap 6.0 BUN 19 Creatinine 0.7 Estimated GFR (MDRD) 82 L Glucose 101 H Calcium 9.0 Phosphorus 2.4 L Magnesium 1.7 Urine Color YELLOW Urine Clarity CLEAR Urine pH 6.5 Ur Specific [place] 1.015 Urine Protein NEGATIVE Urine Glucose (UA) NEGATIVE Urine Ketones NEGATIVE Urine Occult Blood NEGATIVE Urine Nitrite POSITIVE H Urine Bilirubin NEGATIVE Urine Urobilinogen 0.2 (NORMAL) Ur Leukocyte Esterase NEGATIVE Urine RBC 0-5 Urine WBC 4-5 Ur Squamous Epith Cells RARE Squamous Urine Bacteria Moderate H Ur Microscopic Review INDICATED Urine Culture Comments INDICATED - Rads (name of study) CTH Radiology: See rad report (no acute) PD MEDICAL DECISION MAKING - ED course ED course: lytes were fine (phos of > 2 unlikely to be symptomatic and not needing emergent repletion) CTH neg - suspect MALONE related to UTI - considered and feel SAH unlikely - do not feel this pt with long standing spine problems, prior surgeries, and a neurostimulator should have an LP since MALONE gone and CT neg, michael as MALONE was not the CC - only one of several concerns today anemia is chronic UA was + and may explain some of pt sx - she says she has freq UTIs and conveniently has a urology appt this Tuesday after IVF ofirmev valium and a lido patch she feels much much better, the spasms are better, gave PO meds for UTI, she feels Ok to go home now, will fup urology Tuesday and return if worse Departure - Departure Disposition: Home, Self Care Clinical Impression: Muscle spasm UTI (urinary tract infection) Qualifiers: Urinary tract infection type: acute cystitis Hematuria presence: without hematuria Qualified Code(s): N30.00 - Acute cystitis without hematuria Headache Qualifiers: Headache type: unspecified Headache chronicity pattern: acute headache Intractability: not intractable Qualified Code(s): R51 - Headache Condition: Good Instructions: ED UTI Cystitis Female Follow-Up: Chente Calle MD [Primary Care Provider] - Prescriptions: Cephalexin [Keflex] 500 mg PO Q6H #28 capsule Comments: Rest and drink plenty of fluids Remove the lidocaine patch before bed tonight Follow up with you urologist Tuesday as scheduled - the urine culture should be available for him/her to review by then Return if worse
[2017-03-02 11:28] LABS: BASOPHILS % (AUTO) 0.6 %; EOSINOPHILS # (AUTO) 0.1 10^3/uL (0.0-0.7); EOSINOPHILS % (AUTO) 1.7 %; HCT - HEMATOCRIT 31.6 % (37.0-47.0); HGB - HEMOGLOBIN 10.2 g/dL (12.0-16.0); LYMPHOCYTES # (AUTO) 0.7 10^3/uL (1.5-3.5); LYMPHOCYTES % (AUTO) 10.2 %; MEAN CORPUSCULAR HEMOGLOBIN 32.2 pg (27.0-31.0); MEAN CORPUSCULAR HGB CONC 32.1 g/dL (32.0-36.0); MEAN CORPUSCULAR VOLUME 100.3 fL (81.0-99.0); MEAN PLATELET VOLUME 7.9 fL (7.9-10.8); MONOCYTES # (AUTO) 0.2 10^3/uL (0.0-1.0); MONOCYTES % (AUTO) 2.2 %; NEUTROPHILS # (AUTO) 6.1 10^3/uL (1.5-6.6); NEUTROPHILS % (AUTO) 85.3 %; RED BLOOD COUNT 3.15 10^6/uL (4.20-5.40); RED CELL DISTRIBUTION WIDTH 14.7 % (12.0-15.0); UNCORRECTED WHITE BLOOD COUNT 7.1 x10^3/uL; WHITE BLOOD COUNT 7.1 x10^3/uL (4.8-10.8)
[2017-03-02] MEDS ORDERED: diazePAM INJ 5 MG/ML SYRINGE ONE (11:34)
[2017-03-02] MEDS ORDERED: ACETAMINOPHEN 1,000 MG/100 ML 100 ML IV ONE (11:34)
[2017-03-02 11:37] LABS: CREATININE 0.7 mg/dL (0.4-1.0); MAGNESIUM 1.7 mg/dL (1.7-2.8); PHOSPHORUS 2.4 mg/dL (2.5-4.6); POTASSIUM 3.5 mmol/L (3.5-5.0)
--- NOTE | 2017-03-02 11:49 | CT Preliminary Report ---
Exam: CT Head W/O IMPRESSION: Generalized age-related cortical atrophic changes without evidence of acute intracranial abnormality. [facility] SITE ID: [id number]
--- NOTE | 2017-03-02 11:52 | CT Report ---
EXAM: CT HEAD EXAM DATE: 03/02/2017 11:28 AM. CLINICAL HISTORY: Severe headache. COMPARISON: 08/21/2007. TECHNIQUE: Multiaxial CT images were obtained from the foramen magnum to the vertex. IV contrast: Non e. Reformats: Coronal. In accordance with CT protocol optimization, one or more of the following dose reduction techniques w ere utilized for this exam: automated exposure control, adjustment of mA and/or KV based on patient s ize, or use of iterative reconstructive technique. FINDINGS: Parenchyma: No intraparenchymal hemorrhage. No evidence of mass, midline shift, or CT findings of acu te infarction. Jalloh-white differentiation is distinct. Extraaxial Spaces: Normal for age. No subdural or epidural collections identified. Ventricles: The ventricles and cortical sulci are enlarged, consistent with age-related tissue loss. Sinuses: Imaged paranasal sinuses, orbits, and mastoids show no significant abnormality. Bones: No evidence of fracture or calvarial defect. Other: Diffuse chronic microangiopathic white matter changes are evident. IMPRESSION: Generalized age-related cortical atrophic changes without evidence of acute intracranial abnormality. [facility] Referring Provider Line: [phone] SITE ID: [id number]
[2017-03-02 12:39] LABS: BILIRUBIN,URINE NEGATIVE (NEGATIVE); PH,URINE 6.5 PH (5.0-7.5); UA w/ MICROSCOPIC CHARGE YES
[2017-03-02 12:44] LABS: UR CULTURE IF IND INDICATED
[2017-03-02] MEDS ORDERED: cefTRIAXone 1 GM in SODIUM CHLORIDE 0.9% MINIBAG 100 ML IV STA (13:23)
[2017-03-02] MEDS ORDERED: CEPHALEXIN 250 MG CAPSULE PO STA (13:24)
[2017-03-02] MEDS ORDERED: CEPHALEXIN 250 MG CAPSULE PO ONE (13:26)
[2017-03-02] MEDS ORDERED: LIDOCAINE PATCH 5% TOP STA (13:31)
[2017-03-02] MEDS ORDERED: LIDOCAINE PATCH 5% TOP ONE (13:33)
[2017-03-02] MEDS ORDERED: cefTRIAXone 1 GM VIAL ONE (13:42)
[2017-03-02 13:56] VITALS: BP 127/84
== END 2017-03-02 14:17 | disposition home or self-care (01) ==
LOC: EDUNIT# → ED 10:40
DX: M62.838 Other muscle spasm (principal); N30.00 Acute cystitis without hematuria; R51 Headache; G62.9 Polyneuropathy, unspecified; I73.9 Peripheral vascular disease, unspecified; I49.3 Ventricular premature depolarization; G89.29 Other chronic pain; Z87.891 Personal history of nicotine dependence; Z96.9 Presence of functional implant, unspecified
CPT/HCPCS: 36415; 70450; 80048; 81001; 83735; 84100; 85025; 87077; 87086; 87181; 93005; 96374; 96375; 99284; A9270; J0131; 81003

== ENCOUNTER 2017-03-07 15:39 | Outpatient (CLI) | payer MEDICARE, OTHER | END 2017-03-07 15:40 | disposition home or self-care (01) | LOC: SC 15:39 | PROVIDERS: ATTEND Nurse Practitioner Family | DX: G47.33 Obstructive sleep apnea (adult) (pediatric) (principal); G47.61 Periodic limb movement disorder | CPT/HCPCS: 99214; G0463; 99212 ==

== ENCOUNTER 2017-03-08 14:09 | Outpatient (CLI) | payer MEDICARE, OTHER ==
--- NOTE | 2017-03-09 08:01 | Mammography Report ---
DIGITAL DIAGNOSTIC RIGHT MAMMOGRAM: 03/08/2017 CLINICAL INDICATION: History of benign breast biopsy. TECHNIQUE: Right CC, MLO, true lateral, laterally exaggerated craniocaudal views. COMPARISON: 07/27/2016, 07/20/2016, 10/16/2013, 04/23/2010, 04/17/2009, 01/31/2008. The right breast again demonstrates heterogeneously dense fibroglandular parenchyma. Biopsy marker i n the right posterolateral breast is stable. A few punctate, typically benign calcifications are pre sent. No suspicious masses, clustered microcalcifications, or regions of architectural distortion ar e identified. IMPRESSION: BENIGN FINDINGS. RECOMMENDATION: ROUTINE ANNUAL SCREENING, NEXT DUE IN JULY 2017, UNLESS OTHERWISE CLINICALLY IND ICATED. BIRADS CATEGORY: 2, BENIGN FINDINGS. STANDARD QUALIFYING STATEMENTS 1. This examination was reviewed with the aid of Computed-Aided Detection (CAD). 2. A negative or benign imaging report should not delay biopsy if clinically suspicious findings are present. Consider surgical consultation if warranted. More than 5% of cancers are not identified b y imaging. 3. Dense breasts may obscure an underlying neoplasm. JOB #: [id number] EXT JOB #:
== END 2017-03-08 14:10 | disposition home or self-care (01) ==
LOC: DI 14:09
PROVIDERS: ATTEND Internal Medicine
DX: N64.59 Other signs and symptoms in breast (principal)
CPT/HCPCS: 71020

== ENCOUNTER 2017-03-08 14:37 | Outpatient (CLI) | payer MEDICARE, OTHER ==
--- NOTE | 2017-03-08 19:54 | XRAY Report ---
TWO VIEW CHEST: 03/08/2017 CLINICAL INDICATION: Pneumonia. Frontal and lateral views of the chest are compared to previous films of 01/18/2017. The cardiac crystal houette is within normal limits. Right basilar air-space disease is increasing. No effusion or pneu mothorax is seen. A spinal stimulator and postoperative changes are stable. IMPRESSION: INCREASING RIGHT BASILAR INFILTRATE FROM 01/18/2017. INTERVAL RESOLUTION OF LEFT BASILA R AIR-SPACE DISEASE. JOB #: [id number] EXT JOB #:[id number]
== END 2017-03-08 14:38 | disposition home or self-care (01) ==
LOC: DI 14:37
PROVIDERS: ATTEND Internal Medicine
DX: J18.9 Pneumonia, unspecified organism (principal)
CPT/HCPCS: 71020

== ENCOUNTER 2017-05-19 15:54 | Outpatient (CLI) | payer MEDICARE, OTHER ==
[2017-05-19 16:44] LABS: BASOPHILS # (AUTO) 0.1 10^3/uL (0.0-0.1); BASOPHILS % (AUTO) 1.2 %; EOSINOPHILS # (AUTO) 0.1 10^3/uL (0.0-0.7); HCT - HEMATOCRIT 34.3 % (37.0-47.0); HGB - HEMOGLOBIN 11.1 g/dL (12.0-16.0); LYMPHOCYTES % (AUTO) 14.3 %; MEAN CORPUSCULAR HEMOGLOBIN 32.1 pg (27.0-31.0); MEAN CORPUSCULAR HGB CONC 32.4 g/dL (32.0-36.0); MEAN CORPUSCULAR VOLUME 99.3 fL (81.0-99.0); MEAN PLATELET VOLUME 8.6 fL (7.9-10.8); MONOCYTES # (AUTO) 0.4 10^3/uL (0.0-1.0); MONOCYTES % (AUTO) 6.3 %; NEUTROPHILS # (AUTO) 5.5 10^3/uL (1.5-6.6); NEUTROPHILS % (AUTO) 77.2 %; RED BLOOD COUNT 3.46 10^6/uL (4.20-5.40); RED CELL DISTRIBUTION WIDTH 14.2 % (12.0-15.0); UNCORRECTED WHITE BLOOD COUNT 7.1 x10^3/uL; WHITE BLOOD COUNT 7.1 x10^3/uL (4.8-10.8)
--- NOTE | 2017-05-20 08:32 | XRAY Report ---
TWO-VIEW CHEST: 05/19/2017 CLINICAL INDICATION: Abnormal lung sounds. COMPARISON: 03/08/2017 FINDINGS: Frontal and lateral views of the chest demonstrate a normal cardiac silhouette. Previousl y seen right basilar airspace disease has resolved. Multilevel spinal fusion, vertebroplasties, and spinal stimulator are stable, as are bilateral shoulder replacements. IMPRESSION: RESOLUTION OF PREVIOUSLY SEEN RIGHT BASILAR INFILTRATE. JOB #: [id number] EXT JOB #:[id number]
== END 2017-05-19 15:55 | disposition home or self-care (01) ==
LOC: DI 15:54
PROVIDERS: ATTEND Internal Medicine
DX: R91.8 Other nonspecific abnormal finding of lung field (principal); Z51.81 Encounter for therapeutic drug level monitoring
CPT/HCPCS: 36415; 71020; 85025

== ENCOUNTER 2017-05-30 15:05 | Outpatient (CLI) | payer MEDICARE, OTHER | END 2017-05-30 15:06 | disposition home or self-care (01) | LOC: SC 15:05 | PROVIDERS: ATTEND Nurse Practitioner Family | DX: G47.33 Obstructive sleep apnea (adult) (pediatric) (principal) | CPT/HCPCS: 99214; G0463; 99212 ==

== ENCOUNTER 2017-08-30 14:36 | Outpatient (CLI) | payer MEDICARE, OTHER ==
[2017-08-30 15:16] LABS: BASOPHILS # (AUTO) 0.1 10^3/uL (0.0-0.1); BASOPHILS % (AUTO) 1.8 %; EOSINOPHILS # (AUTO) 0.1 10^3/uL (0.0-0.7); EOSINOPHILS % (AUTO) 2.4 %; HGB - HEMOGLOBIN 10.1 g/dL (12.0-16.0); LYMPHOCYTES # (AUTO) 1.5 10^3/uL (1.5-3.5); LYMPHOCYTES % (AUTO) 25.6 %; MEAN CORPUSCULAR HEMOGLOBIN 32.4 pg (27.0-31.0); MEAN PLATELET VOLUME 9.2 fL (7.9-10.8); MONOCYTES # (AUTO) 0.7 10^3/uL (0.0-1.0); MONOCYTES % (AUTO) 12.5 %; NEUTROPHILS # (AUTO) 3.5 10^3/uL (1.5-6.6); NEUTROPHILS % (AUTO) 57.7 %; PLT - PLATELET COUNT 197 10^3/uL (130-450); RED BLOOD COUNT 3.12 10^6/uL (4.20-5.40); RED CELL DISTRIBUTION WIDTH 14.3 % (12.0-15.0)
[2017-08-30 15:25] LABS: CHOL/HDL RATIO 2.3 (<4.4); CHOLESTEROL 147 mg/dL; HDL CHOLESTEROL 63 mg/dL; LDL CHOLESTEROL,CALCULATED 57 mg/dL; LDL/HDL RATIO 0.9 (<4.4); VLDL CHOLESTEROL 27 mg/dL
== END 2017-08-30 14:37 | disposition home or self-care (01) ==
LOC: LAB 14:36
PROVIDERS: ATTEND Internal Medicine Pulmonary Disease
DX: J84.9 Interstitial pulmonary disease, unspecified (principal); Z79.52 Long term (current) use of systemic steroids; Z51.81 Encounter for therapeutic drug level monitoring; Z79.899 Other long term (current) drug therapy
CPT/HCPCS: 36415; 80061; 83721; 85025

== ENCOUNTER 2017-08-30 20:05 | Emergency (ER) | payer MEDICARE, OTHER ==
[2017-08-30 20:27] VITALS: BP 105/50
[2017-08-30] MEDS ORDERED: LIDOCAINE PATCH 5% TOP STA (21:27)
--- NOTE | 2017-08-30 21:33 | XRAY Report ---
EXAM: RIGHT RIB RADIOGRAPHY EXAM DATE: 08/30/2017 09:19 PM. CLINICAL HISTORY: Right axillary rib pain. COMPARISON: Chest dated 05/19/2017. TECHNIQUE: 2 views. FINDINGS: Bones: Osteopenia. No definite fracture or other bone lesion. Lungs: Course lung markings similar to previous study. No definite acute infiltrate, consolidation, e ffusion, or pneumothorax. Mediastinum: Normal heart size, unchanged. Upper lobe vessels not distended. Other: Extensive postoperative changes. IMPRESSION: No acute disease. [facility] Referring Provider Line: [phone] SITE ID: [id number]
--- NOTE | 2017-08-30 21:37 | ED Physician Documentation ---
PD HPI TRUNK INJURY - Stated complaint Stated Complaint: RIB PX - Chief complaint Chief Complaint: General - History obtained from History obtained from: Patient, Family - History of Present Illness Location: Right chest Type of injury: Twist Timing - onset: Today Timing - details: Abrupt onset Quality: Pain, Sharp, Tearing Improved by: Immobilization Worsened by: Moving, Palpating Associated symtptoms: No: Weakness, Numbness, Tingling Where injury occured: Home Recently seen: Not recently seen - Additional information Additional information: Patient is a 71 year old female with osteoporosis, djd with mulitple orthopedic surgeries who is presenting to the emergency department for right sided rib pain. Patient states that she was reaching out and felt a pop and a sharp tear in her right axillary region. Patient denies any other trauma. Review of Systems Constitutional: denies: Fever, Chills Eyes: reports: Reviewed and negative Ears: reports: Reviewed and negative Nose: reports: Reviewed and negative Throat: reports: Reviewed and negative Cardiac: denies: Chest pain / pressure, Palpitations Respiratory: denies: Cough, Wheezing GI: denies: Abdominal Pain, Nausea, Vomiting : reports: Reviewed and negative Skin: denies: Rash, Lesions, Abrasion (s) Musculoskeletal: reports: Extremity pain Neurologic: denies: Generalized weakness, Focal weakness, Numbness PD PAST MEDICAL HISTORY - Past Medical History Past Medical History: Yes Cardiovascular: Other Respiratory: Sleep apnea, Other Neuro: Peripheral neuropathy Endocrine/Autoimmune: None GI: Chronic diarrhea, Chronic constipation : Other HEENT: None Psych: None Musculoskeletal: Chronic back pain Derm: None - Past Surgical History Past Surgical History: Yes General: Cholecystectomy Ortho: Spine surgery, 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 Cardiovascular: Other HEENT: Cataracts Derm: Other - Present Medications Home Medications: Ambulatory Orders Medication Instructions Recorded Confirmed Atorvastatin Calcium [Lipitor] 20 mg PO QPM 05/31/13 03/02/17 Carvedilol [Coreg] 12.5 mg PO BID 05/31/13 03/02/17 Mycophenolate Mofetil [Cellcept] 1,000 mg PO BID 05/31/13 03/02/17 Pantoprazole Sodium 40 mg PO DAILY 05/31/13 03/02/17 Potassium Chloride [K-Dur] 10 meq PO BID 05/31/13 03/02/17 Cholecalciferol (Vitamin D3) 2,000 unit PO DAILY 08/08/15 03/02/17 [Vitamin D3] Cyanocobalamin (Vitamin B-12) 1,000 mcg PO DAILY 08/08/15 03/02/17 [Vitamin B-12] Dronedarone HCl [Multaq] 400 mg PO BID 08/08/15 03/02/17 Vitamin B Complex [B Complex] 1 each PO DAILY 08/08/15 03/02/17 Aspirin [Aspirin EC] 81 mg PO DAILY 10/10/16 03/02/17 Duloxetine HCl [Cymbalta] 60 mg ORAL DAILY 10/10/16 03/02/17 Ferrous Sulfate 45 mg PO DAILY 10/10/16 03/02/17 Multivitamin [Theragran] 1 tab PO DAILY 10/10/16 03/02/17 Valacyclovir HCl [Valacyclovir] 500 mg PO BID 10/10/16 03/02/17 predniSONE [Prednisone] 5 mg PO DAILY 10/10/16 03/02/17 Diphenoxylate/Atropine [Lomotil] 1 tab PO QID PRN #60 tablet 10/14/16 03/02/17 Mupirocin 1 applic TP TID #15 oint...g. 01/17/17 03/02/17 Acetaminophen 2 tab TID PRN 03/02/17 03/02/17 Ascorbic Acid [Vitamin C] 2 tab DAILY 03/02/17 03/02/17 Calcium 500 Mg Gummie 1 tab DAILY 03/02/17 Cephalexin [Keflex] 500 mg PO Q6H #28 capsule 03/02/17 Cyanocobalamin (Vitamin B-12) 1 tab DAILY 03/02/17 03/02/17 [Vitamin B-12] Diphenoxylate/Atropine [Lomotil] 1 tab PRN PRN 03/02/17 03/02/17 Dronedarone HCl [Multaq] 1 tab BID 03/02/17 03/02/17 Furosemide [Lasix] 20 mg DAILY 03/02/17 03/02/17 Hydromorphone HCl/0.9% NaCl/Pf 0 mg DAILY 03/02/17 03/02/17 [Hydromorphone 20 mg/100 ml-Ns] Lactobacillus Acidophilus 1 tab DAILY 03/02/17 03/02/17 [Probiotic Acidophilus] Ondansetron Odt [Zofran Odt] 1 tab PRN 03/02/17 Polyethylene Glycol 3350 [Miralax] 1 tab DAILY 03/02/17 03/02/17 Lidocaine Patch 5% [Lidoderm Patch] 1 each TOP DAILY #10 patch 08/30/17 - Allergies Allergies/Adverse Reactions: Allergies Allergy/AdvReac Type Severity Reaction Status Date / Time iodine Allergy Rash Verified 10/10/16 09:41 NSAIDS (Non-Steroidal Allergy abd pain Verified 10/10/16 09:41 Anti-Inflamma pregabalin [From Lyrica] Allergy muscle Verified 08/08/15 13:07 spasms zolpidem tartrate * AdvReac Hallucinati Verified 10/10/16 09:41 [From Ambien] ons artichokes Allergy Unknown Uncoded 10/11/16 12:00 cantelope Allergy Unknown Uncoded 10/11/16 12:00 shellfish Allergy Unknown Uncoded 10/11/16 12:00 - Social History Does the pt smoke?: No Smoking Status: Never smoker Does the pt drink ETOH?: No Does the pt have substance abuse?: No - Immunizations Immunizations are current?: Yes - POLST Patient has POLST: No PD ED PE NORMAL - Vitals Vital signs reviewed: Yes - General General: Alert and oriented X 3, No acute distress - HEENT HEENT: Atraumatic, PERRL, Moist mucous membranes - Neck Neck: Supple, no meningeal sign - Cardiac Cardiac: RRR - Respiratory Respiratory: No respiratory distress - Abdomen Abdomen: Soft, Non distended - Derm Derm: Normal color, Warm and dry - Neuro Neuro: Alert and oriented X 3, No motor deficit, No sensory deficit, Normal speech - Psych Psych: Normal mood PD ED PE EXPANDED - Cardiac Cardiac: Chest wall TTP (tenderness to palpation of right axillary region, no ecchymosis, no step off) Results - Vitals Vitals: Vital Signs - 24 hr 08/30/17 20:18 Temperature 35.9 C L Heart Rate 73 Respiratory 18 Rate Blood Pressure 105/50 L O2 Saturation 96 Oxygen O2 Source Room air - Rads (name of study) right rib series Radiology: Final report received (no acute fracture or dislocation) PD MEDICAL DECISION MAKING - ED course Complexity details: reviewed old records, reviewed results, re-evaluated patient , considered differential, d/w patient, d/w family ED course: Patient was seen and examined at bedside. patient was sent for imaging. when patient returned the results were reviewed. Patient had no acute fracture or dislcoation. Patient was treated with lidoderm. Patient required no further work up and was stable for discharge with outpatient follow up. Departure - Departure Disposition: 01 Home, Self Care Clinical Impression: Muscle strain of chest wall Condition: Good Instructions: ED Spasm Muscle Follow-Up: Matt Singh MD [Primary Care Provider] - As Needed Prescriptions: Lidocaine Patch 5% [Lidoderm Patch] 1 each TOP DAILY #10 patch Comments: Your diagnostics today were within normal limits. there is no acute fracture or dislocation. Your symptoms are likely secondary to a muscle strain. You can use the topical patches and your regular pain management. These injuries can take weeks to heal. You should follow up with your doctor if symptoms persist. You may return to the emergency department at any time for new, worsening or uncontrollable symptoms. Discharge Date/Time: 08/30/17 21:41
== END 2017-08-30 21:41 | disposition home or self-care (01) ==
LOC: ED 20:05
DX: S29.011A Strain of muscle and tendon of front wall of thorax, initial encounter (principal); X58.XXXA Exposure to other specified factors, initial encounter; J84.9 Interstitial pulmonary disease, unspecified; M81.0 Age-related osteoporosis without current pathological fracture; M19.90 Unspecified osteoarthritis, unspecified site; G62.9 Polyneuropathy, unspecified; Z79.52 Long term (current) use of systemic steroids; Z79.899 Other long term (current) drug therapy
CPT/HCPCS: 36415; 71100; 80061; 85025; 99283; A9270; 83721

== ENCOUNTER 2017-09-14 15:19 | Outpatient (CLI) | payer MEDICARE, OTHER ==
--- NOTE | 2017-09-15 14:11 | DEXA Report ---
DEXA SCAN: 09/14/2017 CLINICAL INDICATION: Long-term steroid use. TECHNIQUE: Dual energy x-ray absorptiometry (DXA) was performed on a [employer] system. Regions measured are the AP spine, femoral neck, and, if needed, forearm. COMPARISON: None. In accordance with the International Society for Clinical Densitometry (ISCD) guidelines, data from previous exams may be reanalyzed using current recommendations and techniques. This is done to allow a more accurate basis for comparison with the current study. FINDINGS The data for the lumbar spine is as follows: N/A The data for the hip is as follows: REGION BMD (g/cm/cm) T-SCORE Z-SCORE Neck 0.740 -2.1 -0.9 TOTAL 0.696 -2.5 -1.5 NOTE: The femoral neck or total proximal femur, whichever is lowest, is used for classification. The data for the forearm is as follows: REGION BMD (g/cm/cm) T-SCORE Z-SCORE Radius 1/3 0.568 -3.5 -1.6 NOTE: The 33% radius of the nondominant forearm is used for classification. IMPRESSION 1. THE WHO CLASSIFICATION BASED ON THE INTERNATIONAL REFERENCE STANDARD IS OSTEOPOROSIS. THE FRACTURE RISK IS HIGH. 2. LEFT FOREARM EVALUATION PERFORMED SECONDARY TO EXTENSIVE LUMBAR SPINE FUSION. RECOMMENDATION: Patients with diagnosis of osteoporosis or osteopenia should have regular bone mineral density assessment. For those eligible for Medicare, routine testing is allowed once every 2 years. Testing frequency can be increased for patients who have rapidly progressing disease or for those who are receiving medical therapy to restore bone mass. COMMENT: World Health Organization (WHO) definitions for osteoporosis and osteopenia: NORMAL BMD: T-score at 1.0 or higher, fracture risk is low. OSTEOPENIA BMD: T-score between 1.0 and -2.5, fracture risk is increased. OSTEOPOROSIS BMD: T-score at 2.5 or lower, fracture risk high. National Osteoporosis Foundation recommends: 1. Obtain adequate dietary calcium (at least 1200 mg per day) and vitamin D (400 -800 international units per day). 2. Participate, as appropriate, in regular weightbearing and muscle- strengthening exercise. 3. Avoid tobacco use and reduce alcohol and caffeine intake. 4. For more detailed information see the website at www.NOF.org. TD: 09/15/2017 13:20 RENUKA
== END 2017-09-14 15:20 | disposition home or self-care (01) ==
LOC: DI 15:19
PROVIDERS: ATTEND Internal Medicine Rheumatology
DX: M81.0 Age-related osteoporosis without current pathological fracture (principal); Z98.1 Arthrodesis status
CPT/HCPCS: 77080; 77081

== ENCOUNTER 2017-10-03 15:52 | Outpatient (CLI) | payer MEDICARE, OTHER | END 2017-10-03 15:53 | disposition home or self-care (01) | LOC: SC 15:52 | PROVIDERS: ATTEND Nurse Practitioner Family | DX: G47.33 Obstructive sleep apnea (adult) (pediatric) (principal) | CPT/HCPCS: 99214; G0463; 99212 ==

== ENCOUNTER 2017-12-02 16:42 | Outpatient (CLI) | payer MEDICARE, OTHER ==
--- NOTE | 2017-12-02 21:50 | XRAY Report ---
EXAM: LEFT KNEE RADIOGRAPHY EXAM DATE: 12/02/2017 04:44 PM. CLINICAL HISTORY: PAIN IN LEFT KNEE. COMPARISON: None. TECHNIQUE: 3 views. FINDINGS: Bones: Osteopenia. No definite fracture or other bone lesion. Mild benign appearing periosteal reacti on along the medial surface of the distal femoral diametaphysis, of doubtful clinical significance. Joints: Mild 3 compartment joint space narrowing with marginal lipping. Mild chondrocalcinosis, tanna tible with pseudogout. No definite effusion. Soft Tissues: Unremarkable. IMPRESSION: Mild degenerative changes. [facility] Referring Provider Line: [phone] SITE ID: [id number]
--- NOTE | 2017-12-02 22:53 | XRAY Report ---
EXAM: LEFT ANKLE RADIOGRAPHY EXAM DATE: 12/02/2017 04:44 PM. CLINICAL HISTORY: ANKLE JOINT PAIN, LEFT. COMPARISON: None. TECHNIQUE: 3 views. FINDINGS: Bones: Osteopenia. Tiny plantar moderate posterior calcaneal spurs. No definite fracture or other bon e lesion. Joints: Normal. No effusion. No subluxations. The ankle mortise is normally aligned. Soft Tissues: Unremarkable. IMPRESSION: No acute disease. [facility] Referring Provider Line: [phone] SITE ID: [id number]
== END 2017-12-02 16:43 | disposition home or self-care (01) ==
LOC: DI 16:42
PROVIDERS: ATTEND Internal Medicine
DX: M17.12 Unilateral primary osteoarthritis, left knee (principal); M25.572 Pain in left ankle and joints of left foot

== ENCOUNTER 2017-12-05 16:00 | Outpatient (CLI) | payer MEDICARE, OTHER | END 2017-12-05 16:01 | disposition home or self-care (01) | LOC: SC 16:00 | PROVIDERS: ATTEND Nurse Practitioner Family | DX: G47.33 Obstructive sleep apnea (adult) (pediatric) (principal) | CPT/HCPCS: 99215; G0463; 99212 ==

== ENCOUNTER 2017-12-07 16:28 | Emergency (ER) | payer MEDICARE, OTHER ==
--- NOTE | 2017-12-07 17:52 | ED Physician Documentation ---
PD HPI CHEST PAIN - Stated complaint Stated Complaint: SOA - Chief complaint Chief Complaint: Resp - History obtained from History obtained from: Patient - History of Present Illness Timing - onset: Other (This is a reyna 72-year-old woman on immunosuppressive therapy for history of mixed connective tissue disorder, she also has sleep apnea and a history of CHF with pericarditis and cardiomyopathy resolved since 2002 but still maintained on cardiac medications. Her culture manager is Dr. Dodd in [place]. She 4-1/2 weeks ago had 45 minutes ago of fairly typical chest pain which has been present since but she has had on and off shortness of breath ever since then. She went to see her sleep apnea nurse practitioner 2 days ago and she mentioned this episode to her who then was encouraged to call her culture manager and when she did she was referred here.) Review of Systems Ten Systems: 10 systems reviewed and negative Constitutional: reports: Fatigue. denies: Fever, Chills Cardiac: denies: Chest pain / pressure, Palpitations, Pedal edema, Calf pain Respiratory: reports: Dyspnea. 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 Cardiovascular: Other HEENT: Cataracts Derm: Other - Present Medications Home Medications: Ambulatory Orders Medication Instructions Recorded Confirmed Atorvastatin Calcium [Lipitor] 20 mg PO QPM 05/31/13 03/02/17 Carvedilol [Coreg] 12.5 mg PO BID 05/31/13 03/02/17 Mycophenolate Mofetil [Cellcept] 1,000 mg PO BID 05/31/13 03/02/17 Pantoprazole Sodium 40 mg PO DAILY 05/31/13 03/02/17 Potassium Chloride [K-Dur] 10 meq PO BID 05/31/13 03/02/17 Cholecalciferol (Vitamin D3) 2,000 unit PO DAILY 08/08/15 03/02/17 [Vitamin D3] Cyanocobalamin (Vitamin B-12) 1,000 mcg PO DAILY 08/08/15 03/02/17 [Vitamin B-12] Dronedarone HCl [Multaq] 400 mg PO BID 08/08/15 03/02/17 Vitamin B Complex [B Complex] 1 each PO DAILY 08/08/15 03/02/17 Aspirin [Aspirin EC] 81 mg PO DAILY 10/10/16 03/02/17 Duloxetine HCl [Cymbalta] 60 mg ORAL DAILY 10/10/16 03/02/17 Ferrous Sulfate 45 mg PO DAILY 10/10/16 03/02/17 Multivitamin [Theragran] 1 tab PO DAILY 10/10/16 03/02/17 Valacyclovir HCl [Valacyclovir] 500 mg PO BID 10/10/16 03/02/17 predniSONE [Prednisone] 5 mg PO DAILY 10/10/16 03/02/17 Diphenoxylate/Atropine [Lomotil] 1 tab PO QID PRN #60 tablet 10/14/16 03/02/17 Mupirocin 1 applic TP TID #15 oint...g. 01/17/17 03/02/17 Acetaminophen 2 tab TID PRN 03/02/17 03/02/17 Ascorbic Acid [Vitamin C] 2 tab DAILY 03/02/17 03/02/17 Calcium 500 Mg Gummie 1 tab DAILY 03/02/17 Cephalexin [Keflex] 500 mg PO Q6H #28 capsule 03/02/17 Cyanocobalamin (Vitamin B-12) 1 tab DAILY 03/02/17 03/02/17 [Vitamin B-12] Diphenoxylate/Atropine [Lomotil] 1 tab PRN PRN 03/02/17 03/02/17 Dronedarone HCl [Multaq] 1 tab BID 03/02/17 03/02/17 Furosemide [Lasix] 20 mg DAILY 03/02/17 03/02/17 Hydromorphone HCl/0.9% NaCl/Pf 0 mg DAILY 03/02/17 03/02/17 [Hydromorphone 20 mg/100 ml-Ns] Lactobacillus Acidophilus 1 tab DAILY 03/02/17 03/02/17 [Probiotic Acidophilus] Ondansetron Odt [Zofran Odt] 1 tab PRN 03/02/17 Polyethylene Glycol 3350 [Miralax] 1 tab DAILY 03/02/17 03/02/17 Lidocaine Patch 5% [Lidoderm Patch] 1 each TOP DAILY #10 patch 08/30/17 - Allergies Allergies/Adverse Reactions: Allergies Allergy/AdvReac Type Severity Reaction Status Date / Time iodine Allergy Rash Verified 12/07/17 16:52 NSAIDS (Non-Steroidal Allergy abd pain Verified 12/07/17 16:52 Anti-Inflamma pregabalin [From Lyrica] Allergy muscle Verified 12/07/17 16:52 spasms zolpidem tartrate * AdvReac Hallucinati Verified 12/07/17 16:52 [From Ambien] ons artichokes Allergy Unknown Uncoded 10/11/16 12:00 cantelope Allergy Unknown Uncoded 10/11/16 12:00 shellfish Allergy Unknown Uncoded 10/11/16 12:00 - Social History Does the pt smoke?: No Smoking Status: Never smoker Does the pt drink ETOH?: No Does the pt have substance abuse?: No - Family History Family history: reports: Non contributory - Immunizations Immunizations are current?: Yes - POLST Patient has POLST: No PD ED PE NORMAL - Vitals Vital signs reviewed: Yes - General General: Alert and oriented X 3, No acute distress - HEENT HEENT: PERRL, EOMI - Neck Neck: Supple, no meningeal sign, No bony TTP - Cardiac Cardiac: RRR, No murmur - Respiratory Respiratory: No respiratory distress, Clear bilaterally - Abdomen Abdomen: Normal bowel sounds, Soft, Non tender - Extremities Extremities: Other (Trace pitting pedal edema) - Neuro Neuro: Alert and oriented X 3, Normal speech - Psych Psych: Normal mood, Normal affect Results - Vitals Vitals: Vital Signs - 24 hr 12/07/17 16:43 Temperature 36.1 C L Heart Rate 66 Respiratory 20 Rate Blood Pressure 108/49 L O2 Saturation 97 Oxygen O2 Source Room air - EKG (time done) 1647 Rate: Rate (enter#) (62) Rhythm: NSR [place]: Normal Intervals: Normal MT QRS: Normal Ischemia: Normal ST segments Computer interpretation: Agree with computer - Labs Labs: Laboratory Tests 12/07/17 12/07/17 12/07/17 17:59 17:59 17:59 WBC 7.9 RBC 3.15 L Hgb 10.2 L Hct 31.4 L MCV 99.8 H MCH 32.3 H MCHC 32.4 RDW 15.0 Plt Count 189 MPV 8.7 Neut # 6.3 Lymph # 0.9 L Evans # 0.5 Eos # 0.1 Baso # 0.1 Absolute Nucleated RBC 0.00 Nucleated RBC % 0.0 D-Dimer Sodium 138 Potassium 3.8 Chloride 104 Carbon Dioxide 27 Anion Gap 7.0 BUN 19 Creatinine 0.7 Estimated GFR (MDRD) 82 L Glucose 103 H Calcium 9.0 Total Bilirubin 0.2 AST 21 ALT 17 Alkaline Phosphatase 71 Troponin I < 0.04 B-Natriuretic Peptide Total Protein 6.8 Albumin 4.4 Globulin 2.4 Albumin/Globulin Ratio 1.8 Lipase 16 L 12/07/17 12/07/17 17:59 17:59 WBC RBC Hgb Hct MCV MCH MCHC RDW Plt Count MPV Neut # Lymph # Evans # Eos # Baso # Absolute Nucleated RBC Nucleated RBC % D-Dimer 246.7 Sodium Potassium Chloride Carbon Dioxide Anion Gap BUN Creatinine Estimated GFR (MDRD) Glucose Calcium Total Bilirubin AST ALT Alkaline Phosphatase Troponin I B-Natriuretic Peptide 101 H Total Protein Albumin Globulin Albumin/Globulin Ratio Lipase - Rads (name of study) CHest 2v Radiology: EMP read contemporaneously (Slightly increased prominence of lung markings, could be consistent with early edema. Small nodular density on the right, needing follow-up.) PD MEDICAL DECISION MAKING - ED course ED course: 72-year-old woman with dyspnea and a 4-1/2 week old episode of chest pain. She was referred for an echo, but she arrives after the hours during which I can perform an echo. Her diagnostics are relatively unremarkable. Case was discussed by phone with Dr. Idris Jose tenoner operator for her culture manager recommended a single dose of IV Lasix and then can safely go on her trip which starts tomorrow and have an echo when she returns. Departure - Departure Disposition: 01 Home, Self Care Clinical Impression: Congestive heart failure Qualifiers: Heart failure type: systolic Heart failure chronicity: acute on chronic Qualified Code(s): I50.23 - Acute on chronic systolic (congestive) heart failure Condition: Good Record reviewed to determine appropriate education?: Yes Instructions: Heart Failure Dc Comments: You have a right-sided lung nodule which needs follow-up either with repeat chest x-ray in a couple of months or a CAT scan, discuss this with your primary care physician. Also follow-up with Dr. Dodd on return home.
--- NOTE | 2017-12-07 17:53 | XRAY Report ---
EXAM: CHEST RADIOGRAPHY EXAM DATE: 12/07/2017 05:34 PM. CLINICAL HISTORY: Short of breath. COMPARISON: 19 May 2017. TECHNIQUE: 2 views. FINDINGS: Lungs/Pleura: Hyperexpanded with flattened diaphragm and coarse lung markings. Mildly increased inter stitial prominence generally. Small nodular density in right mid upper lung zone measuring about 14 m m, not present on previous study. No consolidation, effusion, or pneumothorax. Mediastinum: Heart and mediastinal contours are unremarkable. Upper lobe vessels not distended. Other: Extensive postoperative changes of the spine, bilateral shoulder prostheses, And other chronic findings. IMPRESSION: 1. Slightly increased prominence of lung markings may represent early mild edema. 2. Small nodular density on the right not present last May. Follow-up is recommended. [facility] Referring Provider Line: [phone] SITE ID: [id number]
--- NOTE | 2017-12-07 17:53 | XRAY Preliminary Report ---
Exam: XR CHEST 2 VIEW X-RAY IMPRESSION: 1. Slightly increased prominence of lung markings may represent early mild edema. 2. Small nodular density on the right not present last May. Follow-up is recommended. [facility] SITE ID: [id number]
[2017-12-07 18:07] LABS: BASOPHILS # (AUTO) 0.1 10^3/uL (0.0-0.1); EOSINOPHILS # (AUTO) 0.1 10^3/uL (0.0-0.7); EOSINOPHILS % (AUTO) 0.9 %; HGB - HEMOGLOBIN 10.2 g/dL (12.0-16.0); LYMPHOCYTES # (AUTO) 0.9 10^3/uL (1.5-3.5); LYMPHOCYTES % (AUTO) 11.6 %; MEAN CORPUSCULAR HEMOGLOBIN 32.3 pg (27.0-31.0); MEAN CORPUSCULAR HGB CONC 32.4 g/dL (32.0-36.0); MEAN CORPUSCULAR VOLUME 99.8 fL (81.0-99.0); MEAN PLATELET VOLUME 8.7 fL (7.9-10.8); MONOCYTES # (AUTO) 0.5 10^3/uL (0.0-1.0); MONOCYTES % (AUTO) 6.5 %; NEUTROPHILS # (AUTO) 6.3 10^3/uL (1.5-6.6); PLT - PLATELET COUNT 189 10^3/uL (130-450); RED BLOOD COUNT 3.15 10^6/uL (4.20-5.40); WHITE BLOOD COUNT 7.9 x10^3/uL (4.8-10.8)
[2017-12-07 18:23] LABS: ALBUMIN 4.4 g/dL (3.2-5.5); ALBUMIN/GLOBULIN RATIO 1.8 (1.0-2.2); BILIRUBIN,TOTAL 0.2 mg/dL (0.2-1.0); CREATININE 0.7 mg/dL (0.4-1.0); TOTAL PROTEIN 6.8 g/dL (6.7-8.2)
[2017-12-07] MEDS ORDERED: FUROSEMIDE 20 MG/2 ML VIAL IVP STA (18:55)
[2017-12-07 19:22] VITALS: BP 117/55
== END 2017-12-07 19:26 | disposition home or self-care (01) ==
LOC: ED 16:28
DX: I50.23 Acute on chronic systolic (congestive) heart failure (principal); G62.9 Polyneuropathy, unspecified
CPT/HCPCS: 36415; 71046; 80053; 83690; 83880; 84484; 85025; 85379; 93005; 96374; 99283; 99284

== ENCOUNTER 2018-01-05 13:41 | Outpatient (CLI) | payer MEDICARE, OTHER | END 2018-01-05 13:42 | disposition home or self-care (01) | LOC: SC 13:41 | PROVIDERS: ATTEND Nurse Practitioner Family | DX: G47.33 Obstructive sleep apnea (adult) (pediatric) (principal); F41.9 Anxiety disorder, unspecified; I49.9 Cardiac arrhythmia, unspecified; I50.9 Heart failure, unspecified | CPT/HCPCS: 99214; G0463; 99212 ==

== ENCOUNTER 2018-03-25 15:30 | Outpatient (CLI) | payer MEDICARE, OTHER | END 2018-03-25 15:31 | disposition home or self-care (01) | LOC: LAB.R 15:30 | PROVIDERS: ATTEND Podiatrist | DX: L03.031 Cellulitis of right toe (principal) | CPT/HCPCS: 87070; 87181; 87205 ==

== ENCOUNTER 2018-04-04 12:46 | Outpatient (CLI) | payer MEDICARE, OTHER ==
--- NOTE | 2018-04-04 14:24 | XRAY Report ---
Reason: CELLULITIS, RIGHT GREAT TOE Procedure Date: 04/04/2018 Accession Number: [id number] / [id number] Procedure: XR - Toe(s) RT CPT Code: FULL RESULT: EXAM: RIGHT TOE RADIOGRAPHY EXAM DATE: 04/04/2018 02:02 PM. CLINICAL HISTORY: Cellulitis to nail bed of right great toe. Assess for osteomyelitis. COMPARISON: None. TECHNIQUE: 3 views. FINDINGS: Bones: Bones appear demineralized. Irregular calcific densities along the medial aspect of the right first metatarsal head and medial base of the right first proximal phalanx. No bony abnormalities are seen involving the right first distal phalanx. Joints: Mild right first MTP joint degenerative changes. No dislocation. Soft Tissues: Soft tissue edema. No radiopaque foreign bodies. IMPRESSION: 1. No acute fracture. No radiographic evidence of osteomyelitis of the right first distal phalanx. 2. Irregular calcific densities along the right first MTP joint more likely degenerative in origin. Infectious etiology not excluded. [facility]
== END 2018-04-04 12:47 | disposition home or self-care (01) ==
LOC: DI 12:46
PROVIDERS: ATTEND Internal Medicine
DX: L03.031 Cellulitis of right toe (principal)
CPT/HCPCS: 73660

== ENCOUNTER 2018-06-14 03:29 | Outpatient (CLI) | payer MEDICARE, OTHER | END 2018-06-14 03:30 | disposition critical access hospital (66) | LOC: EMS 03:29 | PROVIDERS: ATTEND Surgery | DX: M25.551 Pain in right hip (principal); W18.30XA Fall on same level, unspecified, initial encounter; Y92.002 Bathroom of unspecified non-institutional (private) residence as the place of occurrence of the external cause | CPT/HCPCS: A0425; A0427 ==

== ENCOUNTER 2018-06-14 03:41 | Inpatient (IN) | payer MEDICARE, OTHER ==
[2018-06-14] MEDS ORDERED: ACETAMINOPHEN 1,000 MG/100 ML 100 ML IV STA (03:52)
[2018-06-14] MEDS ORDERED: HYDROmorphone 1 MG/ML CARPUJECT IVP STA ×2 (03:52→05:02)
--- NOTE | 2018-06-14 03:53 | ED Physician Documentation ---
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 The patient was on her way to the shower when she fell subsequently injuring her right hip. The patient does report falling and striking the back of her head. The patient denies chest or abdominal trauma. The patient denies upper extremity trauma. The patient denies this being a syncopal event. The patient reports mechanical fall. Symptoms are described as severe Review of Systems Constitutional: denies: Fever, Chills Eyes: denies: Discharge Ears: denies: Ear pain Nose: denies: Congestion Cardiac: denies: Chest pain / pressure Respiratory: denies: Cough GI: denies: Abdominal Pain : denies: Dysuria Skin: denies: Rash Musculoskeletal: reports: Neck pain, Extremity pain, Joint pain. 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 Cardiovascular: Other HEENT: Cataracts Derm: Other - Present Medications Home Medications: Ambulatory Orders Medication Instructions Recorded Confirmed Atorvastatin Calcium [Lipitor] 20 mg PO QPM 05/31/13 03/02/17 Carvedilol [Coreg] 12.5 mg PO BID 05/31/13 03/02/17 Mycophenolate Mofetil [Cellcept] 1,000 mg PO BID 05/31/13 03/02/17 Pantoprazole Sodium 40 mg PO DAILY 05/31/13 03/02/17 Potassium Chloride [K-Dur] 10 meq PO BID 05/31/13 03/02/17 Cholecalciferol (Vitamin D3) 2,000 unit PO DAILY 08/08/15 03/02/17 [Vitamin D3] Cyanocobalamin (Vitamin B-12) 1,000 mcg PO DAILY 08/08/15 03/02/17 [Vitamin B-12] Dronedarone HCl [Multaq] 400 mg PO BID 08/08/15 03/02/17 Vitamin B Complex [B Complex] 1 each PO DAILY 08/08/15 03/02/17 Aspirin [Aspirin EC] 81 mg PO DAILY 10/10/16 03/02/17 Duloxetine HCl [Cymbalta] 60 mg ORAL DAILY 10/10/16 03/02/17 Ferrous Sulfate 45 mg PO DAILY 10/10/16 03/02/17 Multivitamin [Theragran] 1 tab PO DAILY 10/10/16 03/02/17 Valacyclovir HCl [Valacyclovir] 500 mg PO BID 10/10/16 03/02/17 predniSONE [Prednisone] 5 mg PO DAILY 10/10/16 03/02/17 Diphenoxylate/Atropine [Lomotil] 1 tab PO QID PRN #60 tablet 10/14/16 03/02/17 Mupirocin 1 applic TP TID #15 oint...g. 01/17/17 03/02/17 Acetaminophen 2 tab TID PRN 03/02/17 03/02/17 Ascorbic Acid [Vitamin C] 2 tab DAILY 03/02/17 03/02/17 Calcium 500 Mg Gummie 1 tab DAILY 03/02/17 Cephalexin [Keflex] 500 mg PO Q6H #28 capsule 03/02/17 Cyanocobalamin (Vitamin B-12) 1 tab DAILY 03/02/17 03/02/17 [Vitamin B-12] Diphenoxylate/Atropine [Lomotil] 1 tab PRN PRN 03/02/17 03/02/17 Dronedarone HCl [Multaq] 1 tab BID 03/02/17 03/02/17 Furosemide [Lasix] 20 mg DAILY 03/02/17 03/02/17 Hydromorphone HCl/0.9% NaCl/Pf 0 mg DAILY 03/02/17 03/02/17 [Hydromorphone 20 mg/100 ml-Ns] Lactobacillus Acidophilus 1 tab DAILY 03/02/17 03/02/17 [Probiotic Acidophilus] Ondansetron Odt [Zofran Odt] 1 tab PRN 03/02/17 Polyethylene Glycol 3350 [Miralax] 1 tab DAILY 03/02/17 03/02/17 Lidocaine Patch 5% [Lidoderm Patch] 1 each TOP DAILY #10 patch 08/30/17 - Allergies Allergies/Adverse Reactions: Allergies Allergy/AdvReac Type Severity Reaction Status Date / Time iodine Allergy Rash Verified 06/14/18 03:48 NSAIDS (Non-Steroidal Allergy abd pain Verified 06/14/18 03:48 Anti-Inflamma pregabalin [From Lyrica] Allergy muscle Verified 06/14/18 03:48 spasms zolpidem tartrate * AdvReac Hallucinati Verified 06/14/18 03:48 [From Ambien] ons artichokes Allergy Unknown Uncoded 06/14/18 03:48 cantelope Allergy Unknown Uncoded 06/14/18 03:48 shellfish Allergy Unknown Uncoded 06/14/18 03:48 - Social History Does the pt smoke?: No Smoking Status: Never smoker Does the pt drink ETOH?: No Does the pt have substance abuse?: No - Immunizations Immunizations are current?: Yes - POLST Patient has POLST: No PD ED PE NORMAL - General General: Alert and oriented X 3 - HEENT HEENT: Atraumatic, PERRL, EOMI, Ears normal - Neck Neck: No: No bony TTP - Cardiac Cardiac: RRR, Strong equal pulses - Respiratory Respiratory: No respiratory distress, Clear bilaterally - Abdomen Abdomen: Soft, Non tender - Derm Derm: Normal color, No rash - Extremities Extremities: No: No deformity (The patient has an obvious deformity to the right hip, the hip is tender to palpation. The knee and ankle and foot have no crepitus or tenderness. The patient has a normal dorsalis pedis pulses bilaterally. Brisk cap refill and normal sensation light touch), No tenderness to palpate, Normal ROM s pain - Neuro Neuro: Alert and oriented X 3, Normal speech - Psych Psych: Normal affect PD ED PE EXPANDED - General General: In Pain, In distress - Extremities Extremities: Deformity, Tenderness, Limited ROM, Right hip Results - Vitals Vitals: Vital Signs - 24 hr 06/14/18 03:42 Temperature 36.8 C Heart Rate 70 Respiratory 16 Rate Blood Pressure 123/74 O2 Saturation 95 Oxygen O2 Source Room air - EKG (time done) 03:59 Rate: Rate (enter#) Rhythm: NSR Intervals: Prolonged TN, 1st degree AVB, QRS normal Ischemia: Non specific changes - Labs Labs: Laboratory Tests 06/14/18 06/14/18 06/14/18 03:45 03:45 03:45 WBC 6.7 RBC 3.38 L Hgb 11.1 L Hct 33.9 L MCV 100.3 H MCH 32.7 H MCHC 32.6 RDW 15.4 H Plt Count 241 MPV 9.0 Neut # (Auto) 4.4 Lymph # (Auto) 1.5 [place] # (Auto) 0.6 Eos # (Auto) 0.1 Baso # (Auto) 0.1 Absolute Nucleated RBC 0.00 Nucleated RBC % 0.0 PT INR APTT Sodium 140 Potassium 3.8 Chloride 99 L Carbon Dioxide 32 Anion Gap 9.0 BUN 28 H Creatinine 0.7 Estimated GFR (MDRD) 82 L Glucose 117 H Calcium 9.8 Total Bilirubin 0.5 AST 22 ALT 18 Alkaline Phosphatase 60 Troponin I < 0.04 Total Protein 7.2 Albumin 4.3 Globulin 2.9 Albumin/Globulin Ratio 1.5 Lipase 16 L 06/14/18 03:45 WBC RBC Hgb Hct MCV MCH MCHC RDW Plt Count MPV Neut # (Auto) Lymph # (Auto) [place] # (Auto) Eos # (Auto) Baso # (Auto) Absolute Nucleated RBC Nucleated RBC % PT 11.7 INR 1.0 APTT 28.1 Sodium Potassium Chloride Carbon Dioxide Anion Gap BUN Creatinine Estimated GFR (MDRD) Glucose Calcium Total Bilirubin AST ALT Alkaline Phosphatase Troponin I Total Protein Albumin Globulin Albumin/Globulin Ratio Lipase - Rads (name of study) CT head/Neck Radiology: Final report received, See rad report (IMPRESSION: Normal head CT. ) Hip Radiology: Final report received, See rad report CXR Radiology: Final report received, See rad report PD MEDICAL DECISION MAKING - ED course ED course: The case discussed with the on-call orthopedic surgeon Dr. Stark who agrees to evaluate the patient for definitive management The case was discussed with the hospitalist Dr. Baires who accepts the patient onto his service. The findings and plan were discussed with the patient understands and agrees to the plan Departure - Departure Disposition: 66 [facility] DC/Xfer Clinical Impression: Hip fracture Qualifiers: Encounter type: initial encounter Fracture type: closed Laterality: right Qualified Code(s): S72.001A - Fracture of unspecified part of neck of right femur, initial encounter for closed fracture Head injury Qualifiers: Encounter type: initial encounter Qualified Code(s): S09.90XA - Unspecified injury of head, initial encounter Fall Qualifiers: Encounter type: initial encounter Qualified Code(s): W19.XXXA - Unspecified fall, initial encounter
[2018-06-14 04:01] LABS: BASOPHILS # (AUTO) 0.1 10^3/uL (0.0-0.1); BASOPHILS % (AUTO) 1.1 %; EOSINOPHILS # (AUTO) 0.1 10^3/uL (0.0-0.7); EOSINOPHILS % (AUTO) 1.8 %; HGB - HEMOGLOBIN 11.1 g/dL (12.0-16.0); LYMPHOCYTES # (AUTO) 1.5 10^3/uL (1.5-3.5); LYMPHOCYTES % (AUTO) 21.9 %; MEAN CORPUSCULAR HEMOGLOBIN 32.7 pg (27.0-31.0); MEAN CORPUSCULAR HGB CONC 32.6 g/dL (32.0-36.0); MEAN CORPUSCULAR VOLUME 100.3 fL (81.0-99.0); MONOCYTES # (AUTO) 0.6 10^3/uL (0.0-1.0); MONOCYTES % (AUTO) 9.1 %; NEUTROPHILS # (AUTO) 4.4 10^3/uL (1.5-6.6); NEUTROPHILS % (AUTO) 66.1 %; PLT - PLATELET COUNT 241 10^3/uL (130-450); RED BLOOD COUNT 3.38 10^6/uL (4.20-5.40); RED CELL DISTRIBUTION WIDTH 15.4 % (12.0-15.0); WHITE BLOOD COUNT 6.7 x10^3/uL (4.8-10.8)
[2018-06-14 04:06] LABS: PT - PROTHROMBIN TIME 11.7 secs (9.9-12.6)
[2018-06-14 04:09] LABS: ALBUMIN 4.3 g/dL (3.2-5.5); ALBUMIN/GLOBULIN RATIO 1.5 (1.0-2.2); BILIRUBIN,TOTAL 0.5 mg/dL (0.2-1.0); CALCIUM 9.8 mg/dL (8.5-10.3); CREATININE 0.7 mg/dL (0.4-1.0); TOTAL PROTEIN 7.2 g/dL (6.7-8.2)
--- NOTE | 2018-06-14 04:54 | CT Report ---
Reason: fall, head injury Procedure Date: 06/14/2018 Accession Number: [id number] / [id number] Procedure: CT - Head W/O CPT Code: FULL RESULT: EXAM: CT HEAD EXAM DATE: 06/14/2018 04:20 AM. CLINICAL HISTORY: Fall, head injury. COMPARISON: Prior head CT 03/02/2017. TECHNIQUE: Multiaxial CT images were obtained from the foramen magnum to the vertex. Reformats: Sagittal and coronal. IV contrast: None. In accordance with CT protocol optimization, one or more of the following dose reduction techniques were utilized for this exam: automated exposure control, adjustment of mA and/or KV based on patient size, or use of iterative reconstructive technique. FINDINGS: Parenchyma: No intraparenchymal hemorrhage. No evidence of mass, midline shift, or CT findings of infarction. Jalloh-white differentiation is distinct. Extraaxial Spaces: Normal for age. No subdural or epidural collections identified. Ventricles: Normal in size and position. Sinuses and Orbits: Imaged paranasal sinuses, orbits, and mastoids show no significant abnormality. Bones: No evidence of fracture or calvarial defect. Other: None. IMPRESSION: Normal head CT. RADIA
[2018-06-14] MEDS ORDERED: LORazepam 2 MG/ML VIAL IVP STA (05:02)
--- NOTE | 2018-06-14 05:07 | CT Report ---
Reason: fall, head injury Procedure Date: 06/14/2018 Accession Number: [id number] / [id number] Procedure: CT - Cervical Spine W/O CPT Code: FULL RESULT: EXAM: CT CERVICAL SPINE WITHOUT CONTRAST DATE: 06/14/2018 04:19 AM. HISTORY: Fall, head injury. COMPARISONS: Prior cervical spine CT 01/17/2017. TECHNIQUE: Thin-section axial images were acquired of the cervical spine without contrast. Post-processing: Coronal and sagittal reformats. Other: None. In accordance with CT protocol optimization, one or more of the following dose reduction techniques were utilized for this exam: automated exposure control, adjustment of mA and/or KV based on patient size, or use of iterative reconstructive technique. FINDINGS: Again patient status post prior cervical spine surgery. On prior exam there is disruption of posterior hardware at the C2 level. There is been interval removal of C2 lateral mass screws and shortening of the superior aspect of posterior rods. Patient status post anterior diskectomies with disk prostheses at the C4-C5, C5-C6, and C6-C7 levels. There is complete disk height loss at C3-C4. Patient status post decompressive laminectomies at C3, C4, and C5 levels. There is now hardware with posterior fusion extending from C3-T2. There is no compression deformity of T1 vertebral body with 20% anterior height loss. No evidence of adjacent soft tissue edema. No discrete fracture line. No additional fracture. There is unchanged 2 mm anterolisthesis of C2 on C3. Alignment otherwise unremarkable. No CT evidence of central canal or neural foraminal narrowing. Her graft visualized lung apices are clear. Soft tissues of neck unremarkable.. IMPRESSION: 1. Nonacute appearing interval T1 compression fracture with 20% height loss. 2. Interval removal of disrupted hardware at C2 level. 3. No CT evidence of acute abnormality. RADIA
--- NOTE | 2018-06-14 05:07 | XRAY Report ---
Reason: hip injury Procedure Date: 06/14/2018 Accession Number: [id number] / [id number] Procedure: XR - Hip w/Pelvis 2-3V RT CPT Code: FULL RESULT: EXAM: RIGHT HIP AND PELVIS RADIOGRAPHY EXAM DATE: 06/14/2018 04:23 AM. HISTORY: Hip injury. COMPARISONS: XR PELVIS 1 OR 2 VIEWS 11/12/2010 10:16 AM. TECHNIQUE: 1 view of the pelvis and 1 view of the hip. FINDINGS: Bones: Osteopenia. Intertrochanteric right hip fracture. Postoperative changes in the spine. Joints: No dislocation seen. Hip joint spaces are relatively well preserved for age. Soft Tissues: Implanted stimulator device and implanted pain pump. IMPRESSION: 1. Osteopenia with intertrochanteric right hip fracture. RADIA
--- NOTE | 2018-06-14 05:09 | XRAY Report ---
Reason: fall Procedure Date: 06/14/2018 Accession Number: [id number] / [id number] Procedure: XR - Chest 1 View X-Ray CPT Code: 23970 FULL RESULT: EXAM: CHEST RADIOGRAPHY EXAM DATE: 06/14/2018 04:22 AM. CLINICAL HISTORY: Fall. Hip fracture. COMPARISON: CHEST 2 VIEW 12/07/2017 5:20 PM. TECHNIQUE: 1 view. FINDINGS: Lungs/Pleura: Bilateral interstitial and airspace opacities, slightly worse compared with the prior exam. No pleural effusion seen. Right costophrenic angle is not completely included. No pneumothorax. Mediastinum: Within exam limitations, heart size upper normal. Other: Postoperative changes in the spine. Bilateral shoulder prostheses. Osteopenia. IMPRESSION: 1. Borderline heart size with bilateral interstitial and airspace opacities, slightly increased compared with the prior exam. RADIA
[2018-06-14] MEDS ORDERED: SODIUM CHLORIDE FLUSH 0.9% 10 ML SYRINGE IVP PRN ×2 (05:23→12:07)
[2018-06-14] MEDS ORDERED: HYDROcod/ACETAM 10 MG/325 MG TABLET PO PRN (05:23)
[2018-06-14] MEDS ORDERED: TEMAZEPAM 15 MG CAPSULE PO PRN (05:23)
[2018-06-14] MEDS ORDERED: DIPHENOX/ATROPINE 2.5/0.025 MG TABLET PO PRN ×2 (05:29)
[2018-06-14] MEDS ORDERED: ACETAMINOPHEN 325 MG TABLET PO PRN (05:29)
--- NOTE | 2018-06-14 06:02 | HISTORY & PHYSICAL EXAMINATION ---
Chief Complaint - Chief Complaint Chief Complaint: Right hip pain History of Present Illness - Admitted From Admitted From:: ER - History Obtained From Records Reviewed: ER, Prior hospital stays in [facility] History obtained from: Patient and spouse, ED physician Exam Limitations: None - History of Present Illness HPI Comment/Other: Patient is a 72-year-old female with a history of chronic pain, atrial fibrillation, who sustained a fall with a subsequent right hip fracture in her home last night, and was brought by EMS to ED earlier this morning. Her history is somewhat limited due to the patient's current pain level. Patient was in in her normal state of health. She went to go take a shower when she had a mechanical fall, without syncope, or presyncopal components, hit the back of her head against the wall and landed on the floor in her bathroom. EMS arrived, transported to the hospital where an evaluation was done including CT scan of the head and neck, as well as x-ray of the hip and pelvis demonstrating a closed intertrochanteric right hip fracture with no abnormal findings on CT imaging of the neck or head with exception of previously known compression fracture.Patient is a 72-year-old female with a history of chronic pain, atrial fibrillation, who sustained a fall with a subsequent right hip fracture in her home earlier this morning. Patient woke up this morning in her normal state of health. She went to go take a shower when she had a mechanical fall, without syncope, or presyncopal components, hit the back of her head against the wall and landed on the floor in her bathroom. EMS arrived, transported to the hospital where an evaluation was done including CT scan of the head and neck, as well as x-ray of the hip and pelvis demonstrating a closed intertrochanteric right hip fracture w ith no abnormal findings on CT imaging of the neck or head with exception of previously known compression fracture. Laboratory evaluation in the emergency room was otherwise unremarkable, and Dr. Stark, orthopedic surgeon on-call was contacted, and he did accept the patient under his service for probable ORIF later today. He requested the hospitalist team admit the patient and our service was contacted to admit the patient. 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 - POLST Patient has POLST: No Meds/Allgy - Home Medications Home Medications: Ambulatory Orders Medication Instructions Recorded Confirmed Atorvastatin Calcium [Lipitor] 20 mg PO QPM 05/31/13 03/02/17 Carvedilol [Coreg] 12.5 mg PO BID 05/31/13 03/02/17 Mycophenolate Mofetil [Cellcept] 1,000 mg PO BID 05/31/13 03/02/17 Pantoprazole Sodium 40 mg PO DAILY 05/31/13 03/02/17 Potassium Chloride [K-Dur] 10 meq PO BID 05/31/13 03/02/17 Cholecalciferol (Vitamin D3) 2,000 unit PO DAILY 08/08/15 03/02/17 [Vitamin D3] Cyanocobalamin (Vitamin B-12) 1,000 mcg PO DAILY 08/08/15 03/02/17 [Vitamin B-12] Dronedarone HCl [Multaq] 400 mg PO BID 08/08/15 03/02/17 Vitamin B Complex [B Complex] 1 each PO DAILY 08/08/15 03/02/17 Aspirin [Aspirin EC] 81 mg PO DAILY 10/10/16 03/02/17 Duloxetine HCl [Cymbalta] 60 mg ORAL DAILY 10/10/16 03/02/17 Ferrous Sulfate 45 mg PO DAILY 10/10/16 03/02/17 Multivitamin [Theragran] 1 tab PO DAILY 10/10/16 03/02/17 Valacyclovir HCl [Valacyclovir] 500 mg PO BID 10/10/16 03/02/17 predniSONE [Prednisone] 5 mg PO DAILY 10/10/16 03/02/17 Diphenoxylate/Atropine [Lomotil] 1 tab PO QID PRN #60 tablet 10/14/16 03/02/17 Mupirocin 1 applic TP TID #15 oint...g. 01/17/17 03/02/17 Acetaminophen 2 tab TID PRN 03/02/17 03/02/17 Ascorbic Acid [Vitamin C] 2 tab DAILY 03/02/17 03/02/17 Calcium 500 Mg Gummie 1 tab DAILY 03/02/17 Cephalexin [Keflex] 500 mg PO Q6H #28 capsule 03/02/17 Cyanocobalamin (Vitamin B-12) 1 tab DAILY 03/02/17 03/02/17 [Vitamin B-12] Diphenoxylate/Atropine [Lomotil] 1 tab PRN PRN 03/02/17 03/02/17 Dronedarone HCl [Multaq] 1 tab BID 03/02/17 03/02/17 Furosemide [Lasix] 20 mg DAILY 03/02/17 03/02/17 Hydromorphone HCl/0.9% NaCl/Pf 0 mg DAILY 03/02/17 03/02/17 [Hydromorphone 20 mg/100 ml-Ns] Lactobacillus Acidophilus 1 tab DAILY 03/02/17 03/02/17 [Probiotic Acidophilus] Ondansetron Odt [Zofran Odt] 1 tab PRN 03/02/17 Polyethylene Glycol 3350 [Miralax] 1 tab DAILY 03/02/17 03/02/17 Lidocaine Patch 5% [Lidoderm Patch] 1 each TOP DAILY #10 patch 08/30/17 - Allergies Allergies/Adverse Reactions: Allergies Allergy/AdvReac Type Severity Reaction Status Date / Time iodine Allergy Rash Verified 06/14/18 03:48 NSAIDS (Non-Steroidal Allergy abd pain Verified 06/14/18 03:48 Anti-Inflamma pregabalin [From Lyrica] Allergy muscle Verified 06/14/18 03:48 spasms zolpidem tartrate * AdvReac Hallucinati Verified 06/14/18 03:48 [From Ambien] ons artichokes Allergy Unknown Uncoded 06/14/18 03:48 cantelope Allergy Unknown Uncoded 06/14/18 03:48 shellfish Allergy Unknown Uncoded 06/14/18 03:48 Review of Systems - Constitutional Constitutional: reports: Fatigue, Weight loss (Patient has had 20 pounds intentional weight loss over the previous 3 months) - Eyes Eyes: reports: Pain - Cardiovascular Cariovascular: denies: Irregular heart rate, Chest pain, Lightheadedness, Syncope, Exertional dyspnea - Respiratory Respiratory: denies: SOB at rest - Gastrointestinal Gastrointestinal: reports: Constipation. denies: Abdominal pain - Genitourinary Genitourinary: denies: Dysuria - Musculoskeletal Musculoskeletal: reports: Joint pain - Psychiatric Psychiatric: denies: Depression - Endocrine Endocrine: denies: Polyuria Prior Level of Functionality: Independant Exam - Vital Signs Reviewed Vital Signs: Yes Vital Signs: Vital Signs x48h Temp Pulse Resp BP Pulse Ox 06/14/18 05:31 72 12 121/45 L 92 06/14/18 03:42 36.8 C 70 16 123/74 95 - Physical Exam General Appearance: positive: No acute distress Eyes Bilateral: positive: Normal inspection ENT: positive: ENT inspection nml Neck: positive: Nml inspection Respiratory: positive: Chest non-tender, No respiratory distress, Breath sounds nml. negative: Wheezes, Rales, Rhonchi Cardiovascular: positive: Regular rate & rhythm Abdomen: positive: Non-tender, No organomegaly, Nml bowel sounds, No distention Extremities: positive: Other (RLE shortening c/w hip fx) Neurologic/Psychiatric: positive: Oriented x3 Conclusion/Plan - Problem List (1) Closed intertrochanteric fracture of right hip Conclusion/Plan: Patient has a closed intertrochanteric fracture of the right hip that will require repair. Dr. Stark will be taking the patient to the operating room later today.She has a revised cardiac risk index score of 0. In particular, she does not have a known history of coronary artery disease, nor is she have any history of pulmonary disease. She does not have a history of diabetes. Her rhythm today is in sinus and she is rate controlled. She is not on any prior anticoagulants other than aspirin. This may need to be addressed postoperatively however for the purposes of preoperative assessment she is not at high risk for severe bleeding. Patient does take narcotics outpatient for control of back pain and has a intrathecal pump. This may complicate pain management postoperatively. We will monitor closely. Qualifiers: Encounter type: initial encounter Fracture alignment: nondisplaced Qualified Code(s): S72.144A - Nondisplaced intertrochanteric fracture of right femur, initial encounter for closed fracture (2) Atrial fibrillation Conclusion/Plan: This is a remote diagnosis per patient and spouse. She is currently in sinus rhythm. She is on Multitak but not on anticoagulant other than aspirin. It is unclear if this was a calculated decision but to this decision can be deferred until after surgery. In any case she will likely need to be discharged on Lovenox for at least 2-4 weeks and further anticoagulation discussion for atrial fibrillation can be discussed by PCP and/or network account manager.Otherwise, continue her current medications and monitor for rate control and add beta-keiko postoperatively if necessary. (3) Fall Conclusion/Plan: No syncopal component to the fall, CT scan of the head was unremarkable. However patient does have some baseline gait disturbances secondary to musculoskeletal pain including spine, and bilateral knees. She will likely be a candidate for penitentiary facility at discharge however she has apparently previously told her she does not want to go to a nursing facility. This can be evaluated postoperatively for consideration of home health with physical therapy, but this is less likely and she will almost certainly need penitentiary. Qualifiers: Encounter type: initial encounter Qualified Code(s): W19.XXXA - Unspecified fall, initial encounter (4) Chronic back pain greater than 3 months duration Conclusion/Plan: Patient was supposed to have an appointment today to have her intrathecal pump changed at the [facility]. Apparently there are no known problems with the pump this was a routine changing of the pump and it was not set to until September 2018 but the pump was going to be changed prior to this to prevent any labs and dosing effectiveness. At this point, we will have to wait until after surgery but we will monitor closely for pain control.Related to this, patient has a history of fluctuating diarrhea and constipation and given her pain medication I suspect she may have problems with constipation after this visit and we will monitor closely with a bowel regimen. (5) Irregular bowel habits Conclusion/Plan: As above, due to the patient's pain medications, will continue bowel regimen. Discontinue Lomotil. (6) SLE (systemic lupus erythematosus) Conclusion/Plan: Patient takes prednisone 5 mg once daily. Would recommend continuing this medication to prevent adrenal insufficiency and given the low dose unlikely to complicate postoperative infection risk. Qualifiers: Systemic lupus erythematosus type: unspecified Systemic lupus erythematosus organ involvement: unspecified Qualified Code(s): M32.9 - Systemic lupus erythematosus, unspecified - Lab Results Fish Bones: 06/14/18 03:45 06/14/18 03:45
[2018-06-14] MEDS: HYDROmorphone 0.5 MG/0.5 ML SYRINGE IVP PRN ×2 (06:43→08:38)
[2018-06-14] MEDS: PANTOPRAZOLE 40 MG TABLET PO SCH (07:01)
[2018-06-14] MEDS: valACYclovir 500 MG TABLET PO SCH ×2 (08:11→20:50)
[2018-06-14] MEDS: CHOLECALCIFEROL 1,000 UNIT TABLET PO SCH (08:12)
[2018-06-14] MEDS: MYCOPHENOLATE MOFETIL 250 MG CAPSULE PO SCH ×2 (08:12→20:50)
[2018-06-14] MEDS: CYANOCOBALAMIN 500 MCG TABLET PO SCH (08:12)
[2018-06-14] MEDS: predniSONE 5 MG TABLET PO SCH (08:14)
[2018-06-14] MEDS: CARVEDILOL 12.5 MG TABLET PO SCH ×2 (08:15→20:50)
[2018-06-14] MEDS: MULTIVITAMIN TABLET PO SCH (08:15)
[2018-06-14] MEDS: LIDOCAINE PATCH 5% TOP SCH (08:15)
[2018-06-14] MEDS: DULoxetine 30 MG CAPSULE PO SCH (08:17)
[2018-06-14] MEDS: ASCORBIC ACID CHEW 500 MG TABLET PO SCH (08:18)
[2018-06-14] MEDS: POLYETHYLENE GLYCOL 3350 17 GM PACKET PO SCH (08:42)
[2018-06-14] MEDS ORDERED: ASCORBIC ACID CHEW 500 MG TABLET PO ONE (09:00)
[2018-06-14] MEDS ORDERED: SODIUM CHLORIDE FLUSH 0.9% 10 ML SYRINGE IVP SCH (09:00)
[2018-06-14] MEDS ORDERED: POTASSIUM CHLORIDE 10 MEQ CAPSULE PO SCH (09:00)
[2018-06-14] MEDS ORDERED: POLYETHYLENE GLYCOL 3350 17 GM PACKET PO SCH (09:00)
[2018-06-14] MEDS ORDERED: FUROSEMIDE 20 MG TABLET PO SCH (09:00)
[2018-06-14] MEDS ORDERED: FERROUS SULFATE 325 MG TABLET PO SCH (09:00)
--- NOTE | 2018-06-14 09:29 | PROVIDER PROGRESS NOTE ---
Subjective - Prog Note Date Prog Note Date: 06/14/18 Prog Note Time: 09:26 - Subjective Pt reports feeling: Worse (Patient STJeremyH a GLF last PM, sustaining a right IT hip fracture. No LOC or other injury.) Objective - Vital Signs/Intake & Output Vital Signs: Vital Signs x48h Temp Pulse Pulse Resp BP BP Pulse Ox 06/14/18 08:10 69 102/52 L 06/14/18 06:45 36.4 C L 73 16 109/57 L 94 06/14/18 05:31 72 12 121/45 L 92 06/14/18 03:42 36.8 C 70 16 123/74 95 Intake & Output: Intake & Output 06/11/18 06/12/18 06/13/18 06/14/18 23:59 23:59 23:59 23:59 Intake Total 100 Output Total 275 Balance -175 - Lab Results Fish Bones: 06/14/18 03:45 06/14/18 03:45 Other Labs: Lab Results x24hrs 06/14/18 06/14/18 06/14/18 Range/Units 03:45 03:45 03:45 WBC (4.8-10.8) x10^3/uL RBC (4.20-5.40) 10^6/uL Hgb (12.0-16.0) g/dL Hct (37.0-47.0) % MCV (81.0-99.0) fL MCH (27.0-31.0) pg MCHC (32.0-36.0) g/dL RDW (12.0-15.0) % Plt Count (130-450) 10^3/uL MPV (7.9-10.8) fL Neut # (Auto) (1.5-6.6) 10^3/uL Lymph # (Auto) (1.5-3.5) 10^3/uL Stafford # (Auto) (0.0-1.0) 10^3/uL Eos # (Auto) (0.0-0.7) 10^3/uL Baso # (Auto) (0.0-0.1) 10^3/uL Absolute Nucleated RBC x10^3/uL Nucleated RBC % /100WBC PT 11.7 (9.9-12.6) secs INR 1.0 (0.8-1.2) APTT 28.1 (24.9-33.3) secs Sodium 140 (135-145) mmol/L Potassium 3.8 (3.5-5.0) mmol/L Chloride 99 L (101-111) mmol/L Carbon Dioxide 32 (21-32) mmol/L Anion Gap 9.0 (6-13) BUN 28 H (6-20) mg/dL Creatinine 0.7 (0.4-1.0) mg/dL Estimated GFR (MDRD) 82 L (>89) Glucose 117 H (70-100) mg/dL Calcium 9.8 (8.5-10.3) mg/dL Total Bilirubin 0.5 (0.2-1.0) mg/dL AST 22 (10-42) IU/L ALT 18 (10-60) IU/L Alkaline Phosphatase 60 (42-121) IU/L Troponin I < 0.04 (<0.49) ng/mL Total Protein 7.2 (6.7-8.2) g/dL Albumin 4.3 (3.2-5.5) g/dL Globulin 2.9 (2.1-4.2) g/dL Albumin/Globulin Ratio 1.5 (1.0-2.2) Lipase 16 L (22-51) U/L 06/14/18 Range/Units 03:45 WBC 6.7 (4.8-10.8) x10^3/uL RBC 3.38 L (4.20-5.40) 10^6/uL Hgb 11.1 L (12.0-16.0) g/dL Hct 33.9 L (37.0-47.0) % MCV 100.3 H (81.0-99.0) fL MCH 32.7 H (27.0-31.0) pg MCHC 32.6 (32.0-36.0) g/dL RDW 15.4 H (12.0-15.0) % Plt Count 241 (130-450) 10^3/uL MPV 9.0 (7.9-10.8) fL Neut # (Auto) 4.4 (1.5-6.6) 10^3/uL Lymph # (Auto) 1.5 (1.5-3.5) 10^3/uL Stafford # (Auto) 0.6 (0.0-1.0) 10^3/uL Eos # (Auto) 0.1 (0.0-0.7) 10^3/uL Baso # (Auto) 0.1 (0.0-0.1) 10^3/uL Absolute Nucleated RBC 0.00 x10^3/uL Nucleated RBC % 0.0 /100WBC PT (9.9-12.6) secs INR (0.8-1.2) APTT (24.9-33.3) secs Sodium (135-145) mmol/L Potassium (3.5-5.0) mmol/L Chloride (101-111) mmol/L Carbon Dioxide (21-32) mmol/L Anion Gap (6-13) BUN (6-20) mg/dL Creatinine (0.4-1.0) mg/dL Estimated GFR (MDRD) (>89) Glucose (70-100) mg/dL Calcium (8.5-10.3) mg/dL Total Bilirubin (0.2-1.0) mg/dL AST (10-42) IU/L ALT (10-60) IU/L Alkaline Phosphatase (42-121) IU/L Troponin I (<0.49) ng/mL Total Protein (6.7-8.2) g/dL Albumin (3.2-5.5) g/dL Globulin (2.1-4.2) g/dL Albumin/Globulin Ratio (1.0-2.2) Lipase (22-51) U/L - Diagnostic Imaging Diagnostic Imaging Comments: XR show right IT hip fracture - Other Results/Comments Other Results/Comments: Exam: Right hip: painful ROM. Moves toes well. Sensation- intact throughout (albeit less on right leg). Good cap filling Assessment/Plan - Problem List (1) Closed intertrochanteric fracture of right hip Impression: Stable and cleared for OR PLAN: To OR this AM for short interTan nailing of right hip fracture. Risk and benefits of surgery explained and questions answered. Consent signed. Leg marked. Qualifiers: Encounter type: initial encounter Fracture alignment: nondisplaced Qualified Code(s): S72.144A - Nondisplaced intertrochanteric fracture of right femur, initial encounter for closed fracture
[2018-06-14] MEDS ORDERED: methylPREDNISolone SUCCINATE 40 MG/ML VIAL IVP SCH (09:30)
[2018-06-14] MEDS ORDERED: ceFAZolin 2 GM/50 ML 2 GM/50 ML BAG IV SCH (09:45)
[2018-06-14] MEDS ORDERED: NS W/20 MEQ KCL 1,000 ML IV SCH (10:00)
--- NOTE | 2018-06-14 10:00 | ANESTHESIA ---
Pre-Anesthesia VS, & Labs - Diagnosis right hip fracture - Procedure right hip nailing Vital Signs: Temp Pulse Resp BP Pulse Ox 36.4 C L 69 16 102/52 L 94 06/14/18 06:45 06/14/18 08:10 06/14/18 06:45 06/14/18 08:10 06/14/18 06:45 Height 5 ft 4 in Weight (kg) 79 kg Body Mass Index 29.9 - NPO >8 hours - Is Patient ?: Not Applicable - Lab Results Current Lab Results: Laboratory Tests 06/14/18 03:45: PT 11.7, INR 1.0, APTT 28.1 06/14/18 03:45: Troponin I < 0.04 06/14/18 03:45: Sodium 140, Potassium 3.8, Chloride 99 L, Carbon Dioxide 32, Anion Gap 9.0, BUN 28 H, Creatinine 0.7, Estimated GFR (MDRD) 82 L, Glucose 117 H, Calcium 9.8, Total Bilirubin 0.5, AST 22, ALT 18, Alkaline Phosphatase 60, Total Protein 7.2, Albumin 4.3, Globulin 2.9, Albumin/Globulin Ratio 1.5, Lipase 16 L 06/14/18 03:45: WBC 6.7, RBC 3.38 L, Hgb 11.1 L, Hct 33.9 L, MCV 100.3 H, MCH 32.7 H, MCHC 32.6, RDW 15.4 H, Plt Count 241, MPV 9.0, Neut # (Auto) 4.4, Lymph # (Auto) 1.5, Kendall # (Auto) 0.6, Eos # (Auto) 0.1, Baso # (Auto) 0.1, Absolute Nucleated RBC 0.00, Nucleated RBC % 0.0 Lab results reviewed: Yes Fish Bones: 06/14/18 03:45 06/14/18 03:45 Home Medications and Allergies Active Medications Acetaminophen (Tylenol) 650 mg PO TID PRN PRN Reason: Analgesia Hydrocodone Bitart/Acetaminophen (Clayton 10 Mg/325 Mg) 1 tab PO Q4HR PRN PRN Reason: Pain 8 to 10 Last Admin: 06/14/18 08:15 Dose: 1 tab Ascorbic Acid (Vitamin C) 1,000 mg PO DAILY YONY Last Admin: 06/14/18 08:18 Dose: 1,000 mg Atorvastatin Calcium (Lipitor) 20 mg PO QPM [facility] Calcium Carbonate/Glycine (Oysco-500) 500 mg PO DAILY [facility] Carvedilol (Coreg) 12.5 mg PO BID [facility] Last Admin: 06/14/18 08:15 Dose: 12.5 mg Cholecalciferol (Vitamin D3) 2,000 unit PO DAILY [facility] Last Admin: 06/14/18 08:12 Dose: 2,000 unit Cyanocobalamin (Vitamin B-12) 1,000 mcg PO DAILY [facility] Last Admin: 06/14/18 08:12 Dose: 1,000 mcg Diphenoxylate HCl/Atropine (Lomotil) 1 tab PO QID PRN PRN Reason: Diarrhea Duloxetine HCl (Cymbalta) 60 mg PO DAILY [facility] Last Admin: 06/14/18 08:17 Dose: 60 mg Enoxaparin Sodium (Lovenox) 40 mg SUBQ DAILY [facility] Ferrous Sulfate (Feosol) 45 mg PO DAILY [facility] Hydromorphone HCl (Dilaudid Inj Syringe) 0.5 mg IVP Q2H PRN PRN Reason: Pain 8 to 10 Last Admin: 06/14/18 08:38 Dose: 0.5 mg Potassium Chloride/Sodium Chloride (Normal Saline 0.9% W/20 Meq Kcl) 1,000 mls @ 83.333 mls/hr IV .Q12H [facility] Cefazolin Sodium/Dextrose (Ancef 2 Gm/50 Ml) 2 gm in 50 mls @ 100 mls/hr IV ONCE [facility] Stop: 06/14/18 12:00 Lactobacillus Rhamnosus (Culturelle) 1 cap PO DAILYWM [facility] Lidocaine (Lidoderm Patch) 1 patch TOP DAILY [facility] Last Admin: 06/14/18 08:15 Dose: 1 patch Methylprednisolone (Solu-Medrol (40mg Vial)) 40 mg IVP ONCE [facility] Stop: 06/14/18 11:00 Multivitamins (Theragran) 1 tab PO DAILY [facility] Last Admin: 06/14/18 08:15 Dose: 1 tab Mycophenolate Mofetil () 1,000 mg PO BID [facility] Last Admin: 06/14/18 08:12 Dose: 1,000 mg Non-Formulary Medication (Hydromorphone Hcl/0.9% Nacl/Pf [Hydromorphone 20 Mg/100 Ml-Ns]) 0 mg [id number] DAILY [facility] Pantoprazole Sodium (Protonix) 40 mg PO QDAC [facility] Last Admin: 06/14/18 07:01 Dose: 40 mg (Dronedarone Hcl [ (Multaq] 400 Mg) Tab) 1 each PO BID [facility] (Vitamin B Complex [ (B Complex] Tab)) 1 each PO DAILY [facility] Polyethylene Glycol (Miralax) 17 gm PO DAILY [facility] Last Admin: 06/14/18 08:42 Dose: Not Given Prednisone (Deltasone) 5 mg PO DAILY [facility] Last Admin: 06/14/18 08:14 Dose: 5 mg Sodium Chloride (Normal Saline Flush 0.9%) 10 ml IVP PRN PRN PRN Reason: NEEDED PER PROVIDER ORDERS Sodium Chloride (Normal Saline Flush 0.9%) 10 ml IVP 0100,0900,1700 [facility] Last Admin: 06/14/18 08:19 Dose: 10 ml Temazepam (Restoril) 15 mg PO QPM PRN PRN Reason: Insomnia Valacyclovir HCl (Valtrex) 500 mg PO BID [facility] Last Admin: 06/14/18 08:11 Dose: 500 mg Atorvastatin Calcium [Lipitor] 20 mg PO QPM 05/31/13 Carvedilol [Coreg] 12.5 mg PO BID 05/31/13 Mycophenolate Mofetil [Cellcept] 1,000 mg PO BID 05/31/13 Pantoprazole Sodium 40 mg PO DAILY 05/31/13 Potassium Chloride [K-Dur] 10 meq PO BID 05/31/13 Cholecalciferol (Vitamin D3) [Vitamin D3] 2,000 unit PO DAILY 08/08/15 Cyanocobalamin (Vitamin B-12) [Vitamin B-12] 1,000 mcg PO DAILY 08/08/15 Dronedarone HCl [Multaq] 400 mg PO BID 08/08/15 Vitamin B Complex [B Complex] 1 each PO DAILY 08/08/15 Aspirin [Aspirin EC] 81 mg PO DAILY 10/10/16 Duloxetine HCl [Cymbalta] 60 mg ORAL DAILY 10/10/16 Ferrous Sulfate 45 mg PO DAILY 10/10/16 Multivitamin [Theragran] 1 tab PO DAILY 10/10/16 Valacyclovir HCl [Valacyclovir] 500 mg PO BID 10/10/16 predniSONE [Prednisone] 5 mg PO DAILY 10/10/16 Acetaminophen 2 tab TID PRN 03/02/17 Ascorbic Acid [Vitamin C] 2 tab DAILY 03/02/17 Calcium 500 Mg Gummie 1 tab DAILY 03/02/17 Cyanocobalamin (Vitamin B-12) [Vitamin B-12] 1 tab DAILY 03/02/17 Diphenoxylate/Atropine [Lomotil] 1 tab PRN PRN 03/02/17 Dronedarone HCl [Multaq] 1 tab BID 03/02/17 Furosemide [Lasix] 20 mg DAILY 03/02/17 Hydromorphone HCl/0.9% NaCl/Pf [Hydromorphone 20 mg/100 ml-Ns] 0 mg DAILY 03/02/17 Lactobacillus Acidophilus [Probiotic Acidophilus] 1 tab DAILY 03/02/17 Ondansetron Odt [Zofran Odt] 1 tab PRN 03/02/17 Polyethylene Glycol 3350 [Miralax] 1 tab DAILY 03/02/17 Allergies/Adverse Reactions: Allergies Allergy/AdvReac Type Severity Reaction Status Date / Time iodine Allergy Rash Verified 06/14/18 03:48 NSAIDS (Non-Steroidal Allergy abd pain Verified 06/14/18 03:48 Anti-Inflamma pregabalin [From Lyrica] Allergy muscle Verified 06/14/18 03:48 spasms zolpidem tartrate * AdvReac Hallucinati Verified 06/14/18 03:48 [From Ambien] ons artichokes Allergy Unknown Uncoded 06/14/18 03:48 cantelope Allergy Unknown Uncoded 06/14/18 03:48 shellfish Allergy Unknown Uncoded 06/14/18 03:48 Anes History & Medical History - Anesthetic History Anesthesia Complications: reports: No previous complications Family history of Anesthesia Complications: Denies Family history of Malignant Hyperthermia: Denies - Medical History Cardiovascular: reports: Atrial fibrillation Pulmonary: reports: Sleep apnea Gastrointestinal: reports: Chronic diarrhea, Chronic constipation Urinary: reports: Other Neuro: reports: None Musculoskeletal: reports: Osteoarthritis, Osteopenia, Chronic back pain Endocrine/Autoimmune: reports: None, Systemic lupus erythematosus Blood Disorders: reports: Anemia Skin: reports: None Smoking Status: Former smoker - Surgical History General: Cholecystectomy Eyes Ears Nose Throat (EENT): Cataracts Cardiothoracic: Other Gynecologic: Hysterectomy Orthopedic: Shoulder arthroplasty, Spine surgery, Other Dermatologic: Other Exam General: Oriented x3 Dental: WNL Mouth Openin Fingerbreadth Neck Mobility: Normal Mallampati classification: II Thyromental Distance: 4-6 cm Respiratory: Lungs clear Cardiovascular: Other (irregular) Mental/Cognitive Status: Alert/Oriented X3, Normal for patient Plan Anesthesia Type: General Consent for Procedure(s) Verified and Reviewed: Yes Code Status: Attempt Resuscitation ASA classification: 3-Severe systemic disease Is this case an emergency?: No
--- NOTE | 2018-06-14 10:10 | CONSULTATION NOTE ---
DATE OF SERVICE: 06/14/2018 Physician: Romeo Stark MD ORTHOPEDIC EMERGENCY ROOM/INPATIENT CONSULT NOTE REFERRING PHYSICIAN: Yeison Cisneros DO, of the Emergency Room Department. CHIEF COMPLAINT: "My right hip hurts." HISTORY OF PRESENT ILLNESS: Patient is a 72-year-old female who apparently had a fall last evening, landing on the right side. She noted immediate pain and deformity to her right hip area. She was unable to stand or weight bear due to pain. Denied any loss of consciousness or other injuries; however. She was taken to the emergency room here at [facility] where x-rays showed an intertrochanteric right hip fracture. The patient was admitted to the hospital for medical clearance and subsequent surgical stabilization of her fracture. PHYSICAL EXAMINATION GENERAL: A slender elderly woman lying in bed in moderate amount of pain. RIGHT HIP: Tender to palpation laterally. Painful range of motion of the hip noted. The patient is able to move her toes satisfactorily on command. Sensation appears to be intact in the right lower extremity (diminished sensation on the left lower extremity, though this is a chronic finding). Good capillary filling of the digits noted on the right side as well. X-rays that were taken of the right hip area shows an intertrochanteric hip fracture, right side. ASSESSMENT 1. Closed, displaced right intertrochanteric hip fracture. 2. Chronic prednisone. 3. History of atrial fibrillation. 4. History of congestive heart failure. PLAN: The patient has been cleared by the medical service for her pending hip surgery. Low-dose Solu-Medrol will be given to her to cover her in the perioperative phase. Cover with preoperative antibiotics and perioperative antibiotics as well. The risks and benefits of surgery were explained to the patient, including anesthesia risks, infection, blood loss, nerve damage, deep venous thromboses, fracture malunion, nonunion, hardware failure, etc. The patient appears to understand these risks. All of her questions were answered today. Consent was signed. Leg marked. We will then plan on proceeding with surgery as planned later this morning to stabilize her right hip fracture. TD: 06/14/2018 09:47 RENUKA
[2018-06-14] MEDS ORDERED: BUPIVACAINE 0.25%-EPI 1:200000 PF 30 ML VIAL ONE (10:14)
[2018-06-14] MEDS ORDERED: BUPIVACAINE 0.25%-EPI 1:200000 PF 30 ML VIAL SUBQ ONE ×3 (10:18→10:47)
[2018-06-14] MEDS: LACTOBACILLUS RHAMNOSUS GG CAPSULE PO SCH (10:19)
[2018-06-14] MEDS: CALCIUM CARB (OYSTER SHELL) 500 MG TABLET PO SCH (10:19)
[2018-06-14] MEDS: DRONEDARONE HCL 400 MG PO SCH ×2 (10:33→20:51)
[2018-06-14] MEDS ORDERED: LACTATED RINGERS 1,000 ML IV ONE ×2 (10:47→12:22)
[2018-06-14] MEDS ORDERED: ACETAMINOPHEN 1,000 MG/100 ML 100 ML IV PRN (12:07)
[2018-06-14] MEDS ORDERED: ONDANSETRON 4 MG/2 ML VIAL IVP PRN (12:07)
[2018-06-14] MEDS ORDERED: SENNA 8.6 MG TABLET PO PRN (12:07)
--- NOTE | 2018-06-14 12:07 | OPERATIVE REPORT ---
Operative Report - General Admit Date: 06/14/18 Procedure Date: 06/14/18 Planned Procedure: Short interTan nailing of right hip fracture Pre-Op Diagnosis: Closed right IT hip fracture Procedure Performed: Closed reduction and short interTan nailing of right IT hip fracture Post Op Diagnosis: Same - Procedure Note Primary Surgeon: Rosy Stark MD Secondary Surgeon: None Anesthesia Provider: Lizzie Osorio MD Anesthesia Technique: General ET tube IV Fluids (mL): 1,000 Estimated Blood Loss (mL): 200 Complications: None
[2018-06-14] MEDS ORDERED: PROPOFOL 200 MG/20 ML VIAL IVP ONE (12:12)
[2018-06-14] MEDS ORDERED: GLYCOPYRROLATE 1 MG/5 ML VIAL IVP ONE (12:12)
[2018-06-14] MEDS ORDERED: ROCURONIUM 50 MG/5 ML VIAL IVP ONE (12:12)
[2018-06-14] MEDS ORDERED: ceFAZolin 2 GM/50 ML 2 GM/50 ML BAG IV ONE (12:12)
[2018-06-14] MEDS ORDERED: fentaNYL 100 MCG/2 ML VIAL IVP ONE (12:12)
[2018-06-14] MEDS ORDERED: LIDOCAINE-MPF 2% 5 ML VIAL IM ONE (12:12)
[2018-06-14] MEDS ORDERED: PHENYLEPHRINE 50 MG/5 ML VIAL IV ONE (12:12)
[2018-06-14] MEDS ORDERED: ePHEDrine 50 MG/ML VIAL IVP ONE (12:12)
[2018-06-14] MEDS ORDERED: fentaNYL 100 MCG/2 ML VIAL ONE (12:45)
--- NOTE | 2018-06-14 12:51 | XRAY Report ---
Reason: rt hip fx Procedure Date: 06/14/2018 Accession Number: [id number] / [id number] Procedure: [place] - OR C-Arm Procedure CPT Code: FULL RESULT: EXAM: FLUOROSCOPIC GUIDANCE EXAM DATE: 06/14/2018 12:25 PM. CLINICAL HISTORY: Right hip fracture. COMPARISON: None. FINDINGS: The first image demonstrates the distal interlocking screw of an intramedullary nail. The second image demonstrates placement of the intramedullary nail. The third image demonstrates positioning of the partially threaded cannulated femoral neck screw. The final image demonstrates positioning of the partially threaded cannulated femoral neck screw in relation to the intramedullary nail. IMPRESSION: Fluoroscopic guidance provided for right hip ORIF. Total fluoroscopy time: 0.7 minutes. Number of images: 4. RADIA
--- NOTE | 2018-06-14 13:26 | OPERATIVE REPORT ---
DATE OF SERVICE: 06/14/2018 Physician: Romeo Stark MD PREOPERATIVE DIAGNOSIS: Closed displaced right intertrochanteric hip fracture. POSTOPERATIVE DIAGNOSIS: Closed displaced right intertrochanteric hip fracture. PROCEDURE PERFORMED: Closed reduction and short Intertan nailing of right hip fracture. SURGEON: Romeo Stark MD. ANESTHESIA: General. DESCRIPTION OF PROCEDURE: Patient was taken to the operating room on the morning of 06/14/2018, wher e she was placed under a general anesthetic in the supine position. She was then positioned onto the fracture table in a supine position. Her left well leg was then flexed and widely abducted and held in a well leg bolden. The right fractured extremity was then placed into longitudinal traction with the leg internally rotated about 20 degrees. Fluoroscopic views taken of the hip showed good reduct ion of the fracture and satisfactory visualization of the hip joint in the AP and lateral projections . We then prepped and draped the lateral aspect of the proximal thigh and hip in the usual fashion for our procedure. Making a longitudinal oblique fracture, just proximal to the greater trochanter, we d issected down to the tip of the greater trochanter sharply. This was where we placed the tip of the threaded guidewire. We then advanced this wire into power through the greater trochanter and into th e proximal femur, just distal to the lesser trochanter. Fluoroscopic views, in AP and lateral projec tion, showed a good position and depth of our guide pin. We then used the cannulated 16-mm channel r eamer to ream over our inserted guide pin to prepare the proximal femur. We removed the reamer and t he guide pin. This was then followed by the selected short Intertan nail, which had been applied to the etcher photoengraving apparatus. We then drove the nail through the proximal femur across the fracture site a nd down to the proper depth. When we were satisfied with the alignment of the proximal oblique hole of our nail, with regard to the access of the femoral neck and head, we then made a skin incision and inserted the oval drill sleeve guide up against the proximal lateral femoral shaft. The pin guide i nsert was then placed into our oval guide. Next, we drove the threaded-tip guidewire up through our pin guide and through the proximal femur through the femoral neck and into the femoral head within a few millimeters of the subchondral bone. Fluoroscopic views, in AP and lateral projection, showed go od placement of our guide pin. Direct measuring guide was then used, and we determined a 100 mm x 11 mm subtrochanteric hip screw would be utilized. After removing our pin guide, we then placed the ca nnulated reamer over out inserted guide wire and proceeded to ream the proximal femur up to within a few millimeters of the subchondral bone of the femoral head. Removing the reamer, we then followed w ith the selected subtrochanteric hip lag screw up through the prepared channel and our proximal femur . Fluoroscopic views showed that we were within a few millimeters in the AP projection and about 4-5 mm from the subchondral bone in the lateral projection. It was felt that this was adequate position ing of our hip lag screw. We then removed the insertion apparatus for our subtrochanteric hip lag sc rew from the apparatus. Using the hinged screwdriver, we tightened the set screw and the proximal en d of our nail until it was snug and then backed it off 90 degrees. Next, we placed the concentric go ld and silver drill sleeves through the static hole in the distal end of our alignment guide, pressin g this guide up against the lateral femoral cortex of the femoral shaft through a small skin incision . The drill was then used to perforate the femoral shaft medially and laterally, placing the drill b it through the distal hole in our nail. Fluoroscopic views showed that we had proper depth of our dr ludy. Direct measurements off our right drill indicated a 35 mm length x 5 mm distal locking screw to be utilized in this procedure. We then removed the drill and the inner silver sleeve, leaving the g old sleeve in place. We then inserted our selected distal locking screw through our gold sleeve. Fl uoroscopic views showed good bicortical placement of our distal interlocking screw. We then obtained permanent views of the C-arm in both AP and lateral projection of the distal end of our nail showing that the distal locking screw was in the nail, as well as at the hip, showing good fracture reductio n and satisfactory placement of the hardware. We then irrigated the wounds out thoroughly with salin e. We then closed the wound in layers using 1 stitch of 0 Vicryl to approximate the fascia marcia prox imally, followed by buried simple stitches of 2-0 Vicryl to approximate subcutaneous tissue in the p roximal 2 wounds. Finally, skin araceli were used to approximate the skin edges of all the wounds. A total of 10 mL of 0.25% Marcaine with epinephrine was then utilized to provide incisional local ane sthesia. We then dressed the wounds and transferred the patient off of the fracture table onto her ed, and she was taken to recovery room in satisfactory condition. ESTIMATED BLOOD LOSS: 200 mL. REPLACEMENT: 1000 mL of crystalloid. INTRAOPERATIVE COMPLICATIONS: None. PLAN: The patient will be up, ambulatory, weightbearing as tolerated on the extremity with a walker as soon as possible. TD: 06/14/2018 12:33
[2018-06-14] MEDS: SODIUM CHLORIDE 0.9% 1,000 ML IV SCH (13:42)
[2018-06-14] MEDS: NACL PERCUTA112 SCH (18:25)
[2018-06-14] MEDS: [UNRECOGNIZED DRUG - OTHER] PERCUTA112 SCH (18:25)
[2018-06-14] MEDS: HYDROMORPHONE HCL PERCUTA112 SCH (18:25)
[2018-06-14] MEDS: SODIUM CHLORIDE FLUSH 0.9% 10 ML SYRINGE IVP SCH (18:25)
[2018-06-14] MEDS: MORPHINE 2 MG/ML CARPUJECT IVP PRN (18:58)
[2018-06-14] MEDS: ceFAZolin 2 GM/50 ML 2 GM/50 ML BAG IV SCH (19:04)
[2018-06-14] MEDS: ATORVASTATIN 10 MG TABLET PO SCH (20:50)
[2018-06-14] MEDS: ACETAMINOPHEN 325 MG TABLET PO PRN (21:02)
[2018-06-15] MEDS: MORPHINE 2 MG/ML CARPUJECT IVP PRN (00:10)
[2018-06-15] MEDS: SODIUM CHLORIDE 0.9% 1,000 ML IV SCH ×2 (00:11→10:07)
[2018-06-15] MEDS: SODIUM CHLORIDE FLUSH 0.9% 10 ML SYRINGE IVP SCH ×2 (00:12→08:48)
[2018-06-15] MEDS: ceFAZolin 2 GM/50 ML 2 GM/50 ML BAG IV SCH (03:05)
[2018-06-15] MEDS: ACETAMINOPHEN 325 MG TABLET PO PRN ×2 (03:09→07:32)
[2018-06-15] MEDS: oxyCODONE 5 MG TABLET PO PRN ×6 (03:09→23:58)
[2018-06-15 05:24] LABS: BASOPHILS % (AUTO) 0.1 %; LYMPHOCYTES # (AUTO) 0.8 10^3/uL (1.5-3.5); LYMPHOCYTES % (AUTO) 8.4 %; MEAN CORPUSCULAR HEMOGLOBIN 32.7 pg (27.0-31.0); MEAN CORPUSCULAR HGB CONC 32.4 g/dL (32.0-36.0); MEAN CORPUSCULAR VOLUME 100.9 fL (81.0-99.0); MONOCYTES # (AUTO) 0.7 10^3/uL (0.0-1.0); MONOCYTES % (AUTO) 7.5 %; NEUTROPHILS # (AUTO) 7.6 10^3/uL (1.5-6.6); PLT - PLATELET COUNT 204 10^3/uL (130-450); RED BLOOD COUNT 2.77 10^6/uL (4.20-5.40); RED CELL DISTRIBUTION WIDTH 15.4 % (12.0-15.0)
[2018-06-15 05:38] LABS: ALBUMIN 3.1 g/dL (3.2-5.5); ALBUMIN/GLOBULIN RATIO 1.3 (1.0-2.2); BILIRUBIN,TOTAL 0.6 mg/dL (0.2-1.0); CREATININE 0.5 mg/dL (0.4-1.0); MAGNESIUM 2.1 mg/dL (1.7-2.8); PHOSPHORUS 3.4 mg/dL (2.5-4.6); TOTAL PROTEIN 5.5 g/dL (6.7-8.2)
[2018-06-15] MEDS: PANTOPRAZOLE 40 MG TABLET PO SCH ×2 (06:09→21:05)
[2018-06-15] MEDS: valACYclovir 500 MG TABLET PO SCH ×2 (08:36→21:04)
[2018-06-15] MEDS: POLYETHYLENE GLYCOL 3350 17 GM PACKET PO SCH (08:36)
[2018-06-15] MEDS: DULoxetine 30 MG CAPSULE PO SCH (08:36)
[2018-06-15] MEDS: CHOLECALCIFEROL 1,000 UNIT TABLET PO SCH (08:36)
[2018-06-15] MEDS: MULTIVITAMIN TABLET PO SCH (08:36)
[2018-06-15] MEDS: MYCOPHENOLATE MOFETIL 250 MG CAPSULE PO SCH ×2 (08:36→21:05)
[2018-06-15] MEDS: ASCORBIC ACID CHEW 500 MG TABLET PO SCH (08:37)
[2018-06-15] MEDS: LACTOBACILLUS RHAMNOSUS GG CAPSULE PO SCH (08:37)
[2018-06-15] MEDS: predniSONE 5 MG TABLET PO SCH (08:37)
[2018-06-15] MEDS: CALCIUM CARB (OYSTER SHELL) 500 MG TABLET PO SCH (08:37)
[2018-06-15] MEDS: ENOXAPARIN 40 MG/0.4 ML SYRINGE SUBQ SCH (08:37)
[2018-06-15] MEDS: CYANOCOBALAMIN 500 MCG TABLET PO SCH (08:37)
--- NOTE | 2018-06-15 08:39 | PROVIDER PROGRESS NOTE ---
Subjective - Prog Note Date Prog Note Date: 06/15/18 Prog Note Time: 08:37 - Subjective Pt reports feeling: Improved Subjective: Madelin complained of amnesia of all the events up until this morning. She states that while she lies in bed, she is quite comfortable, but is leery of how physical therapy may go. During this exam, her IV appeared to be infiltrated and she complained of during almost all of her hospital stays of this being a common problem. She denies chest pain, nausea, vomiting, rashes, bleeding, shortness of breath or a productive cough. I encouraged her to try oral meds, as she medically does not require the IV access. Current Medications - Current Medications Current Medications: Active Medications Acetaminophen (Tylenol) 650 - 975 mg PO Q4HR PRN PRN Reason: PAIN Last Admin: 06/15/18 07:32 Dose: 650 mg Acetaminophen (Tylenol) 650 mg PO Q4HR [facility] Ascorbic Acid (Vitamin C) 1,000 mg PO DAILY [facility] Last Admin: 06/15/18 08:37 Dose: 1,000 mg Atorvastatin Calcium (Lipitor) 20 mg PO QPM [facility] Last Admin: 06/14/18 20:50 Dose: 20 mg Calcium Carbonate/Glycine (Oysco-500) 500 mg PO DAILY [facility] Last Admin: 06/15/18 08:37 Dose: Not Given Carvedilol (Coreg) 12.5 mg PO BID [facility] Last Admin: 06/15/18 08:40 Dose: 12.5 mg Cholecalciferol (Vitamin D3) 2,000 unit PO DAILY [facility] Last Admin: 06/15/18 08:36 Dose: 2,000 unit Cyanocobalamin (Vitamin B-12) 1,000 mcg PO DAILY [facility] Last Admin: 06/15/18 08:37 Dose: 1,000 mcg Diphenoxylate HCl/Atropine (Lomotil) 1 tab PO QID PRN PRN Reason: Diarrhea Docusate Sodium (Colace 100mg Capsule) 100 mg PO BID PRN PRN Reason: Constipation Duloxetine HCl (Cymbalta) 60 mg PO DAILY [facility] Last Admin: 06/15/18 08:36 Dose: 60 mg Enoxaparin Sodium (Lovenox) 40 mg SUBQ DAILY [facility] Last Admin: 06/15/18 08:37 Dose: 40 mg Lactobacillus Rhamnosus (Culturelle) 1 cap PO DAILYWM [facility] Last Admin: 06/15/18 08:37 Dose: 1 cap Lidocaine (Lidoderm Patch) 1 patch TOP DAILY [facility] Last Admin: 06/15/18 08:50 Dose: 1 patch Morphine Sulfate (Morphine (Carpuject)) 2 mg IVP Q2HR PRN PRN Reason: PAIN Last Admin: 06/15/18 00:10 Dose: 1 mg Multivitamins (Theragran) 1 tab PO DAILY [facility] Last Admin: 06/15/18 08:36 Dose: Not Given Mycophenolate Mofetil () 1,000 mg PO BID [facility] Last Admin: 06/15/18 08:36 Dose: 1,000 mg Non-Formulary Medication (Hydromorphone Hcl/0.9% Nacl/Pf [Hydromorphone 20 Mg/100 Ml-Ns]) 3.467 mg [id number] DAILY [facility] Last Admin: 06/15/18 08:51 Dose: Not Given Ondansetron HCl (Zofran Inj) 4 mg IVP Q6HR PRN PRN Reason: Nausea / Vomiting Oxycodone HCl (Roxicodone) 15 mg PO Q4HR PRN PRN Reason: PAIN Last Admin: 06/15/18 10:57 Dose: 15 mg Pantoprazole Sodium (Protonix) 40 mg PO QDAC [facility] Last Admin: 06/15/18 06:09 Dose: 40 mg Pantoprazole Sodium (Protonix) 40 mg PO BID [facility] (Dronedarone Hcl [ (Multaq] 400 Mg) Tab) 1 each PO BID [facility] Last Admin: 06/15/18 08:47 Dose: Not Given (Vitamin B Complex [ (B Complex] Tab)) 1 each PO DAILY [facility] Last Admin: 06/15/18 08:47 Dose: Not Given (Ibandronate Sodium [Ibandronate Sodium] 150 Mg) Tab 1 each PO Q28D [facility] Last Admin: 06/15/18 08:47 Dose: Not Given Polyethylene Glycol (Miralax) 17 gm PO DAILY [facility] Last Admin: 06/15/18 08:36 Dose: Not Given Prednisone (Deltasone) 5 mg PO DAILY [facility] Last Admin: 06/15/18 08:37 Dose: 5 mg Senna (Senokot) 17.2 mg PO Q12H PRN PRN Reason: Constipation Temazepam (Restoril) 15 mg PO QPM PRN PRN Reason: Insomnia Torsemide (Torsemide) 40 mg PO DAILY [facility] Valacyclovir HCl (Valtrex) 500 mg PO BID [facility] Last Admin: 06/15/18 08:36 Dose: 500 mg Atorvastatin Calcium [Lipitor] 20 mg PO QPM 05/31/13 Carvedilol [Coreg] 12.5 mg PO BID 05/31/13 Mycophenolate Mofetil [Cellcept] 1,000 mg PO BID 05/31/13 Pantoprazole Sodium 40 mg PO BID 05/31/13 Potassium Chloride [K-Dur] 10 meq PO BID 05/31/13 Cholecalciferol (Vitamin D3) [Vitamin D3] 2,000 unit PO DAILY 08/08/15 Cyanocobalamin (Vitamin B-12) [Vitamin B-12] 1,000 mcg PO DAILY 08/08/15 Dronedarone HCl [Multaq] 400 mg PO BIDWM 08/08/15 Vitamin B Complex [B Complex] 1 each PO DAILY 08/08/15 Aspirin [Aspirin EC] 162 mg PO DAILY 10/10/16 Duloxetine HCl [Cymbalta] 60 mg PO DAILY 10/10/16 Ferrous Sulfate 325 mg PO DAILY 10/10/16 Multivitamin [Theragran] 1 tab PO DAILY 10/10/16 Valacyclovir HCl [Valacyclovir] 500 mg PO DAILY 10/10/16 predniSONE [Prednisone] 5 mg PO DAILY 10/10/16 Ascorbic Acid [Vitamin C] 1,000 mg PO DAILY 03/02/17 Hydromorphone HCl/0.9% NaCl/Pf [Hydromorphone 20 mg/100 ml-Ns] 3.467 mg [id number] DAILY 03/02/17 Lactobacillus Acidophilus [Probiotic Acidophilus] 1 tab DAILY 03/02/17 Calcium Carbonate/Vitamin D3 [Calcium 500-Vit D3 200 Tablet] 1 tab PO BID 06/14/18 Ibandronate Sodium 150 mg PO Q28D 06/14/18 Torsemide 40 mg PO DAILY 06/14/18 Objective - Vital Signs/Intake & Output Reviewed Vital Signs: Yes Vital Signs: Vital Signs x48h Temp Pulse Pulse Resp BP Pulse Ox 06/15/18 07:59 37 C 79 16 100 06/15/18 07:22 37 C 79 16 104/39 L 100 06/15/18 04:20 36.6 C 56 L 20 104/38 L 100 Intake & Output: Intake & Output 06/12/18 06/13/18 06/14/18 06/15/18 23:59 23:59 23:59 23:59 Intake Total 1525 510 Output Total 1350 750 Balance 175 -240 - Objective General Appearance: positive: Alert, Moderate distress, Anxious, Lethargic Eyes Bilateral: positive: PERRL, No lid inflammation Eyes: OU Conjunctivae pale ENT: positive: Pharynx nml Neck: positive: No JVD, Trachea midline, Stiff neck Respiratory: positive: Chest non-tender, No respiratory distress, Other (diminished bilaterally.) Cardiovascular: positive: No gallop, Irregularly irregular, Systolic murmur Peripheral Pulses: 1+ Radial (R), 1+ Radial (L) Abdomen: positive: Non-tender, No distention, Other (right lower quadrant "hockey puck" size intrathecal device is dry and intact without any skin openings. Her abdomen is rounded, soft.) Back: positive: Nml inspection Skin: positive: No rash, Warm, Dry, Pallor Extremities: positive: No pedal edema, Joint swelling (right hip with mild swelling, dressing is CDI. Normal for post-op day #1.) Neurologic/Psychiatric: positive: Oriented x3, CN's nml (2-12), Motor nml, Sensation nml, Weakness, Depressed mood/affect Reflexes: Bicep (R): 3+, Bicep (L): 3+ - Lab Results Fish Bones: 06/16/18 04:50 06/16/18 04:50 Other Labs: Lab Results x24hrs 06/15/18 06/15/18 06/14/18 Range/Units 04:55 04:55 10:10 WBC 9.0 (4.8-10.8) x10^3/uL RBC 2.77 L (4.20-5.40) 10^6/uL Hgb 9.0 L (12.0-16.0) g/dL Hct 27.9 L (37.0-47.0) % MCV 100.9 H (81.0-99.0) fL MCH 32.7 H (27.0-31.0) pg MCHC 32.4 (32.0-36.0) g/dL RDW 15.4 H (12.0-15.0) % Plt Count 204 (130-450) 10^3/uL MPV 9.0 (7.9-10.8) fL Neut # (Auto) 7.6 H (1.5-6.6) 10^3/uL Lymph # (Auto) 0.8 L (1.5-3.5) 10^3/uL [place] # (Auto) 0.7 (0.0-1.0) 10^3/uL Eos # (Auto) 0.0 (0.0-0.7) 10^3/uL Baso # (Auto) 0.0 (0.0-0.1) 10^3/uL Absolute Nucleated RBC 0.00 x10^3/uL Nucleated RBC % 0.0 /100WBC Sodium 139 (135-145) mmol/L Potassium 3.9 (3.5-5.0) mmol/L Chloride 104 (101-111) mmol/L Carbon Dioxide 29 (21-32) mmol/L Anion Gap 6.0 (6-13) BUN 12 (6-20) mg/dL Creatinine 0.5 (0.4-1.0) mg/dL Estimated GFR (MDRD) 121 (>89) Glucose 130 H (70-100) mg/dL Calcium 9.0 (8.5-10.3) mg/dL Phosphorus 3.4 (2.5-4.6) mg/dL Magnesium 2.1 (1.7-2.8) mg/dL Total Bilirubin 0.6 (0.2-1.0) mg/dL AST 30 (10-42) IU/L ALT 27 (10-60) IU/L Alkaline Phosphatase 59 (42-121) IU/L Total Protein 5.5 L (6.7-8.2) g/dL Albumin 3.1 L (3.2-5.5) g/dL Globulin 2.4 (2.1-4.2) g/dL Albumin/Globulin Ratio 1.3 (1.0-2.2) Blood Type B POSITIVE Antibody Screen NEGATIVE ABX Reporting Has patient been on IV antibiotics over the past 48 hours?: Yes Sepsis Event Note (H) - Evaluation Current Stage of Sepsis: Resolved Assessment/Plan - Problem List (1) Closed intertrochanteric fracture of right hip Impression: The patient had an unwitnessed fall at home and suffered a right hip fracture. She underwent a right hip repair with Dr. Stark yesterday, and is now post op day #1. She was very lethargic for most of last night after surgery, but this morning is very alert, talkative and is concerned about upcoming physical therapy today. She has an intrathecal pump that is implanted for her chronic back pain. Her right hip dressings are intact and she has had no known post op complications this far. She states that she has been falling more often, and worries about returning home due to her having at least 2 steps in every room of her home. Plan: continue PT, and alert social work of possible SNF placement. Qualifiers: Encounter type: initial encounter Fracture alignment: nondisplaced Qualified Code(s): S72.144A - Nondisplaced intertrochanteric fracture of right femur, initial encounter for closed fracture (2) Fall Impression: The patient states for the past one year, she has seen several specialists including neurology and cardiology and has undergone "full" work ups as to the cause of her unexplained syncope. She admits to at least 2 TIAs that occurred in 2016 and 2017. She does not remember any events leading up to this fall, and had no warning such as dizziness, fatigue, visual changes or diaphoresis. She states that she has a "bad mitral valve". Plan: Await echo results and fall precautions. Qualifiers: Encounter type: initial encounter Qualified Code(s): W19.XXXA - Unspecified fall, initial encounter (3) SLE (systemic lupus erythematosus) Impression: The patient is prescribed prednisone 5 mg once daily and was given a one time steroid boost immediately prior to her right hip repair. Her chronic prednisone use is unlikely to complicate postoperative infection risk and she will be continued on this. Plan: Continue to monitor and treat post-op pain. Qualifiers: Systemic lupus erythematosus type: unspecified Systemic lupus erythematosus organ involvement: unspecified Qualified Code(s): M32.9 - Systemic lupus erythematosus, unspecified (4) Atrial fibrillation Impression: She has been in sinus rhythm. She is on Multitak but not on anticoagulant other than aspirin, that will be changed to full dose ASA upon discharge. She has been on DVT prophylaxis Lovenox since being post-op. Her blood pressure and heart rates have been controlled at 102/41, and HR 79 today. Plan: Continue meds, and monitor VSs. Qualifiers: Atrial fibrillation type: paroxysmal Qualified Code(s): I48.0 - Paroxysmal atrial fibrillation (5) Congestive heart failure Impression: The patient admits to this diagnosis and echo results show a normal EF of 60-65% with no valve abnormalities and a normal right heart. Plan: Continue meds, and recommend follow up with cardiology. Qualifiers: Heart failure type: systolic Heart failure chronicity: acute on chronic Qualified Code(s): I50.23 - Acute on chronic systolic (congestive) heart failure (6) Weakness Impression: The patient admits to profound weakness and increased falls prior to admission. She states that she has seen a neurologist and her firing pin gauger for further work up with no conclusions. Her weakness is expected to be somewhat worsened since being post op. Plan: Continue daily PT for evaluation of possible placement verses home.
[2018-06-15] MEDS: CARVEDILOL 12.5 MG TABLET PO SCH ×2 (08:40→21:45)
[2018-06-15] MEDS: VITAMIN B COMPLEX PO SCH (08:47)
[2018-06-15] MEDS: DRONEDARONE HCL 400 MG PO SCH ×2 (08:47→21:06)
[2018-06-15] MEDS: LIDOCAINE PATCH 5% TOP SCH (08:50)
[2018-06-15] MEDS: NACL PERCUTA112 SCH (08:51)
[2018-06-15] MEDS: [UNRECOGNIZED DRUG - OTHER] PERCUTA112 SCH (08:51)
[2018-06-15] MEDS: HYDROMORPHONE HCL PERCUTA112 SCH (08:51)
[2018-06-15] MEDS ORDERED: IBANDRONATE SODIUM 150 MG PO SCH (09:00)
[2018-06-15] MEDS ORDERED: ASCORBIC ACID CHEW 500 MG TABLET PO ONE (09:00)
--- NOTE | 2018-06-15 09:50 | PROVIDER PROGRESS NOTE ---
Subjective - Prog Note Date Prog Note Date: 06/15/18 Prog Note Time: 09:48 - Subjective Pt reports feeling: Improved (Less pain) Objective - Vital Signs/Intake & Output Vital Signs: Vital Signs x48h Temp Pulse Pulse Resp BP Pulse Ox 06/15/18 07:59 37 C 79 16 100 06/15/18 07:22 37 C 79 16 104/39 L 100 06/15/18 04:20 36.6 C 56 L 20 104/38 L 100 Intake & Output: Intake & Output 06/12/18 06/13/18 06/14/18 06/15/18 23:59 23:59 23:59 23:59 Intake Total 1525 510 Output Total 1350 750 Balance 175 -240 - Lab Results Fish Bones: 06/15/18 04:55 06/15/18 04:55 Other Labs: Lab Results x24hrs 06/15/18 06/15/18 06/14/18 Range/Units 04:55 04:55 10:10 WBC 9.0 (4.8-10.8) x10^3/uL RBC 2.77 L (4.20-5.40) 10^6/uL Hgb 9.0 L (12.0-16.0) g/dL Hct 27.9 L (37.0-47.0) % MCV 100.9 H (81.0-99.0) fL MCH 32.7 H (27.0-31.0) pg MCHC 32.4 (32.0-36.0) g/dL RDW 15.4 H (12.0-15.0) % Plt Count 204 (130-450) 10^3/uL MPV 9.0 (7.9-10.8) fL Neut # (Auto) 7.6 H (1.5-6.6) 10^3/uL Lymph # (Auto) 0.8 L (1.5-3.5) 10^3/uL [place] # (Auto) 0.7 (0.0-1.0) 10^3/uL Eos # (Auto) 0.0 (0.0-0.7) 10^3/uL Baso # (Auto) 0.0 (0.0-0.1) 10^3/uL Absolute Nucleated RBC 0.00 x10^3/uL Nucleated RBC % 0.0 /100WBC Sodium 139 (135-145) mmol/L Potassium 3.9 (3.5-5.0) mmol/L Chloride 104 (101-111) mmol/L Carbon Dioxide 29 (21-32) mmol/L Anion Gap 6.0 (6-13) BUN 12 (6-20) mg/dL Creatinine 0.5 (0.4-1.0) mg/dL Estimated GFR (MDRD) 121 (>89) Glucose 130 H (70-100) mg/dL Calcium 9.0 (8.5-10.3) mg/dL Phosphorus 3.4 (2.5-4.6) mg/dL Magnesium 2.1 (1.7-2.8) mg/dL Total Bilirubin 0.6 (0.2-1.0) mg/dL AST 30 (10-42) IU/L ALT 27 (10-60) IU/L Alkaline Phosphatase 59 (42-121) IU/L Total Protein 5.5 L (6.7-8.2) g/dL Albumin 3.1 L (3.2-5.5) g/dL Globulin 2.4 (2.1-4.2) g/dL Albumin/Globulin Ratio 1.3 (1.0-2.2) Blood Type B POSITIVE Antibody Screen NEGATIVE - Other Results/Comments Other Results/Comments: EXAM: Dressing intact. Some pain with hip motion. Moves toes well. Sensation intact. Good cap filling Assessment/Plan - Problem List (1) Closed intertrochanteric fracture of right hip Impression: Satis post op PLAN: Mobilize in PT as tolerated. Qualifiers: Encounter type: initial encounter Fracture alignment: nondisplaced Qualified Code(s): S72.144A - Nondisplaced intertrochanteric fracture of right femur, initial encounter for closed fracture
--- NOTE | 2018-06-15 11:01 | ADVANCE CARE PLANNING NOTE ---
Advance Care Planning - Date/Time Date: 06/15/18 Time: 10:59 - Purpose of encounter Text: To establish end of life wishes, and confirm code status. - Parties in attendance Parties in attendance: The patient-Madelin, myself-AZUCENA Richter - Decisional capacity Decisional capacity of: Unlike the beginning of her admission, the patient is now alert and oriented x4. She can state her medical conditions, is a good historian and is capable of making her own decisions. - Subjective/Patient's story Subjective/Patient's story: Madelin states that she has a lot to live for, especially her 13-year old grand- daughter, which is her son's daughter and from his . The grand- daughter is thought to be in the midst of sexual abuse by her mother's boyfriend and this has been stressful for Madelin. She states that this is one of several reasons that she has to remain a full code, as she feels very needed by her family and believes that undergoing life saving measures is the correct choice. As stated earlier, she is fully decisional and does not see the harm in undergoing life saving attempts. She answered YES to the following specific questions; Would you like your heart shocked-yes, would you like chest compressions with the expectation of fractured ribs/sternum-yes, would you like to be intubated-yes, and would you wish for cardiac IV medications-yes. Madelin states that despite her unexplained falls and reduced quality of like, she feels pretty healthy overall. Last evening, the patient's , Alan was questioned about code status of his . At the time of admission, he chose do not attempt resuscitation, but had second thoughts. He stated that he and his , Madelin had a child with cystic fibrosis, so they have been down this road before. He explained that at the time prior to his , he was to make the choice to continue ventilatory support. He suggested that he did not want to be too hasty with choosing DNR with his due to his previous experience. He demonstrated understanding about what might physically take place, and wishes that his be changed to attempt resuscitation. - Objective/Medical story Objective/Medical Story: Madelin Skinner is a 72-year-old female with a history of chronic pain with implanted intrathecal pump, atrial fibrillation, lupus, heart murmur, TIAs, falls, MAROC A, and cortisol deficiency, who sustained a fall with a subsequent right hip fracture in her home last night, and was brought by EMS to ED earlier this morning. Her history is somewhat limited due to the patient's current pain level. Patient was in in her normal state of health. She went to go take a shower when she had a mechanical fall, with unknown syncope, or presyncopal components, hit the back of her head against the wall and landed on the floor in her bathroom. EMS arrived, transported to the hospital where an evaluation was done including CT scan of the head and neck, as well as x-ray of the hip and pelvis demonstrating a closed intertrochanteric right hip fracture with no abnormal findings on CT imaging of the neck or head with exception of previously known compression fracture.Patient is a 72-year-old female with a history of chronic pain, atrial fibrillation, who sustained a fall with a subsequent right hip fracture in her home earlier this morning. Patient woke up this morning in her normal state of health. She went to go take a shower when she had a mechanical fall, without syncope, or presyncopal components, hit the back of her head against the wall and landed on the floor in her bathroom. EMS arrived, transported to the hospital where an evaluation was done including CT scan of the head and neck, as well as x-ray of the hip and pelvis demonstrating a closed intertrochanteric right hip fracture with no abnormal findings on CT imaging of the neck or head with exception of previously known compression fracture. Laboratory evaluation in the emergency room was otherwise unremarkable, and Dr. Stark, orthopedic surgeon on-call was contacted, and he did accept the patient under his service for probable ORIF later today. He requested the hospitalist team admit the patient and our service was contacted to admit the patient. - Goals of Care Goals of care determinations: Issues that could possibly change the goals of care include a sentinel event while hospitalized such as injury to the extent of causing permanent damage neurologically or physically, or a post-op infection such as hardware rejection or severe pneumonia. - Plan Plan: Continue daily physical therapy evaluations and proceed with either nursing home verses home with home care givers. Continue with usual post-op care. Ensure appropriate follow ups and social support. - Code Status Code Status: Attempt Resuscitation - Time Spent on Advance Care Planning Time spent on advance care plannin
[2018-06-15] MEDS: TORSEMIDE 20 MG TABLET PO SCH (11:42)
[2018-06-15] MEDS: ACETAMINOPHEN 325 MG TABLET PO SCH ×5 (11:42→23:59)
[2018-06-15] MEDS: ATORVASTATIN 10 MG TABLET PO SCH (21:05)
[2018-06-16] MEDS: ACETAMINOPHEN 325 MG TABLET PO SCH ×5 (05:05→23:06)
[2018-06-16] MEDS: oxyCODONE 5 MG TABLET PO PRN ×5 (05:06→21:28)
[2018-06-16 05:31] LABS: BASOPHILS # (AUTO) 0.1 10^3/uL (0.0-0.1); BASOPHILS % (AUTO) 0.6 %; EOSINOPHILS # (AUTO) 0.1 10^3/uL (0.0-0.7); EOSINOPHILS % (AUTO) 0.7 %; HGB - HEMOGLOBIN 8.8 g/dL (12.0-16.0); LYMPHOCYTES # (AUTO) 1.2 10^3/uL (1.5-3.5); MEAN CORPUSCULAR HGB CONC 32.8 g/dL (32.0-36.0); MEAN CORPUSCULAR VOLUME 100.7 fL (81.0-99.0); MEAN PLATELET VOLUME 9.1 fL (7.9-10.8); MONOCYTES # (AUTO) 0.8 10^3/uL (0.0-1.0); MONOCYTES % (AUTO) 9.5 %; NEUTROPHILS # (AUTO) 6.5 10^3/uL (1.5-6.6); NEUTROPHILS % (AUTO) 75.2 %; PLT - PLATELET COUNT 197 10^3/uL (130-450); RED BLOOD COUNT 2.67 10^6/uL (4.20-5.40); RED CELL DISTRIBUTION WIDTH 15.7 % (12.0-15.0); WHITE BLOOD COUNT 8.7 x10^3/uL (4.8-10.8)
[2018-06-16 05:39] LABS: ALBUMIN 3.4 g/dL (3.2-5.5); ALBUMIN/GLOBULIN RATIO 1.4 (1.0-2.2); BILIRUBIN,TOTAL 0.5 mg/dL (0.2-1.0); CALCIUM 9.2 mg/dL (8.5-10.3); CREATININE 0.6 mg/dL (0.4-1.0); TOTAL PROTEIN 5.8 g/dL (6.7-8.2)
[2018-06-16] MEDS: PANTOPRAZOLE 40 MG TABLET PO SCH ×4 (06:08→21:18)
[2018-06-16] MEDS: ACETAMINOPHEN 325 MG TABLET PO PRN (08:18)
[2018-06-16] MEDS: LACTOBACILLUS RHAMNOSUS GG CAPSULE PO SCH (08:18)
[2018-06-16] MEDS: NACL PERCUTA112 SCH (09:13)
[2018-06-16] MEDS: HYDROMORPHONE HCL PERCUTA112 SCH (09:13)
[2018-06-16] MEDS: [UNRECOGNIZED DRUG - OTHER] PERCUTA112 SCH (09:13)
[2018-06-16] MEDS: ENOXAPARIN 40 MG/0.4 ML SYRINGE SUBQ SCH (09:51)
[2018-06-16] MEDS: LIDOCAINE PATCH 5% TOP SCH (09:51)
[2018-06-16] MEDS: POLYETHYLENE GLYCOL 3350 17 GM PACKET PO SCH ×2 (09:51→10:03)
[2018-06-16] MEDS: MYCOPHENOLATE MOFETIL 250 MG CAPSULE PO SCH ×2 (09:52→21:17)
[2018-06-16] MEDS: CHOLECALCIFEROL 1,000 UNIT TABLET PO SCH (09:52)
[2018-06-16] MEDS: CALCIUM CARB (OYSTER SHELL) 500 MG TABLET PO SCH (09:52)
[2018-06-16] MEDS: valACYclovir 500 MG TABLET PO SCH ×2 (09:53→21:17)
[2018-06-16] MEDS: MULTIVITAMIN TABLET PO SCH (09:53)
[2018-06-16] MEDS: DOCUSATE SODIUM 100 MG CAPSULE PO PRN (09:53)
[2018-06-16] MEDS: CARVEDILOL 12.5 MG TABLET PO SCH ×3 (09:54→11:53)
[2018-06-16] MEDS: ASCORBIC ACID CHEW 500 MG TABLET PO SCH ×2 (09:55→10:10)
[2018-06-16] MEDS: TORSEMIDE 20 MG TABLET PO SCH (09:55)
[2018-06-16] MEDS: CYANOCOBALAMIN 500 MCG TABLET PO SCH (09:55)
[2018-06-16] MEDS: DULoxetine 30 MG CAPSULE PO SCH (09:55)
[2018-06-16] MEDS: predniSONE 5 MG TABLET PO SCH (10:05)
--- NOTE | 2018-06-16 11:52 | PROVIDER PROGRESS NOTE ---
Subjective - Prog Note Date Prog Note Date: 06/16/18 Prog Note Time: 11:50 - Subjective Pt reports feeling: Improved (Less pain. Up in PT) Objective - Vital Signs/Intake & Output Vital Signs: Vital Signs x48h Temp Pulse Resp BP Pulse Ox 06/16/18 11:42 37.5 C 80 16 122/44 L 92 06/16/18 08:07 37.1 C 76 16 103/48 L 94 06/16/18 04:50 37.0 C 84 20 113/44 L 98 Intake & Output: Intake & Output 06/13/18 06/14/18 06/15/18 06/16/18 23:59 23:59 23:59 23:59 Intake Total 1525 1903 470 Output Total 1350 2225 500 Balance 175 -322 -30 - Lab Results Fish Bones: 06/16/18 04:50 06/16/18 04:50 Other Labs: Lab Results x24hrs 06/16/18 06/16/18 Range/Units 04:50 04:50 WBC 8.7 (4.8-10.8) x10^3/uL RBC 2.67 L (4.20-5.40) 10^6/uL Hgb 8.8 L (12.0-16.0) g/dL Hct 26.9 L (37.0-47.0) % MCV 100.7 H (81.0-99.0) fL MCH 33.0 H (27.0-31.0) pg MCHC 32.8 (32.0-36.0) g/dL RDW 15.7 H (12.0-15.0) % Plt Count 197 (130-450) 10^3/uL MPV 9.1 (7.9-10.8) fL Neut # (Auto) 6.5 (1.5-6.6) 10^3/uL Lymph # (Auto) 1.2 L (1.5-3.5) 10^3/uL [place] # (Auto) 0.8 (0.0-1.0) 10^3/uL Eos # (Auto) 0.1 (0.0-0.7) 10^3/uL Baso # (Auto) 0.1 (0.0-0.1) 10^3/uL Absolute Nucleated RBC 0.00 x10^3/uL Nucleated RBC % 0.0 /100WBC Sodium 136 (135-145) mmol/L Potassium 3.3 L (3.5-5.0) mmol/L Chloride 98 L (101-111) mmol/L Carbon Dioxide 34 H (21-32) mmol/L Anion Gap 4.0 L (6-13) BUN 19 (6-20) mg/dL Creatinine 0.6 (0.4-1.0) mg/dL Estimated GFR (MDRD) 98 (>89) Glucose 118 H (70-100) mg/dL Calcium 9.2 (8.5-10.3) mg/dL Total Bilirubin 0.5 (0.2-1.0) mg/dL AST 50 H (10-42) IU/L ALT 22 (10-60) IU/L Alkaline Phosphatase 52 (42-121) IU/L Total Protein 5.8 L (6.7-8.2) g/dL Albumin 3.4 (3.2-5.5) g/dL Globulin 2.4 (2.1-4.2) g/dL Albumin/Globulin Ratio 1.4 (1.0-2.2) - Other Results/Comments Other Results/Comments: EXAM: Dressing intact. Moves hip with mild pain. N/V ok distally. Up in PT Sepsis Event Note (H) - Evaluation Current Stage of Sepsis: Resolved Assessment/Plan - Problem List (1) Closed intertrochanteric fracture of right hip Impression: Satis post op PLAN: To SNF tomorrow. Continue walker ambulation - WBAT on right. Follow up in orthopedic clinic in 2 weeks for araceli out and new XR. DVT prophylaxis for 2 more weeks: ASA one tab bid or lovenox 30 mg IM daily. Qualifiers: Encounter type: initial encounter Fracture alignment: nondisplaced Qualified Code(s): S72.144A - Nondisplaced intertrochanteric fracture of right femur, initial encounter for closed fracture
[2018-06-16] MEDS: POTASSIUM CHLORIDE 10 MEQ CAPSULE PO SCH ×2 (11:53→18:22)
--- NOTE | 2018-06-16 12:45 | PROVIDER PROGRESS NOTE ---
Subjective - Prog Note Date Prog Note Date: 06/16/18 Prog Note Time: 12:42 - Subjective Pt reports feeling: Improved Subjective: Madelin continues to complain of weakness and is participating in daily therapy. She states that she is very worried about falling now that she is post op as she has no warning when she passes out. She denies chest pain, nausea, vomiting, rashes, bleeding, a new cough, fevers, chills, or confusion. *She is not medically clear for discharge due to medication adjustments as per her primary cardiology provider at [facility], electrolyte abnormalities, and ongoing weakness/fatigue; making this a pre-mature, unsafe discharge. Current Medications - Current Medications Current Medications: Active Medications Acetaminophen (Tylenol) 650 - 975 mg PO Q4HR PRN PRN Reason: PAIN Last Admin: 06/16/18 08:18 Dose: 650 mg Acetaminophen (Tylenol) 650 mg PO Q4HR [facility] Last Admin: 06/16/18 08:22 Dose: Not Given Ascorbic Acid (Vitamin C) 1,000 mg PO DAILY [facility] Last Admin: 06/16/18 10:10 Dose: Not Given Atorvastatin Calcium (Lipitor) 20 mg PO QPM [facility] Last Admin: 06/15/18 21:05 Dose: 20 mg Calcium Carbonate/Glycine (Oysco-500) 500 mg PO DAILY [facility] Last Admin: 06/16/18 09:52 Dose: 500 mg Carvedilol (Coreg) 3.125 mg PO BID [facility] Cholecalciferol (Vitamin D3) 2,000 unit PO DAILY [facility] Last Admin: 06/16/18 09:52 Dose: 2,000 unit Cyanocobalamin (Vitamin B-12) 1,000 mcg PO DAILY [facility] Last Admin: 06/16/18 09:55 Dose: 1,000 mcg Diphenoxylate HCl/Atropine (Lomotil) 1 tab PO QID PRN PRN Reason: Diarrhea Docusate Sodium (Colace 100mg Capsule) 100 mg PO BID PRN PRN Reason: Constipation Last Admin: 06/16/18 09:53 Dose: 100 mg Duloxetine HCl (Cymbalta) 60 mg PO DAILY [facility] Last Admin: 06/16/18 09:55 Dose: 60 mg Enoxaparin Sodium (Lovenox) 40 mg SUBQ DAILY [facility] Last Admin: 06/16/18 09:51 Dose: 40 mg Lactobacillus Rhamnosus (Culturelle) 1 cap PO DAILYWM [facility] Last Admin: 06/16/18 08:18 Dose: 1 cap Lidocaine (Lidoderm Patch) 1 patch TOP DAILY [facility] Last Admin: 06/16/18 09:51 Dose: 1 patch Morphine Sulfate (Morphine (Carpuject)) 2 mg IVP Q2HR PRN PRN Reason: PAIN Last Admin: 06/15/18 00:10 Dose: 1 mg Multivitamins (Theragran) 1 tab PO DAILY [facility] Last Admin: 06/16/18 09:53 Dose: 1 tab Mycophenolate Mofetil () 1,000 mg PO BID [facility] Last Admin: 06/16/18 09:52 Dose: 1,000 mg Non-Formulary Medication (Hydromorphone Hcl/0.9% Nacl/Pf [Hydromorphone 20 Mg/ 100 Ml-Ns]) 3.467 mg [id number] DAILY [facility] Last Admin: 06/16/18 09:13 Dose: Not Given Ondansetron HCl (Zofran Inj) 4 mg IVP Q6HR PRN PRN Reason: Nausea / Vomiting Oxycodone HCl (Roxicodone) 15 mg PO Q4HR PRN PRN Reason: PAIN Last Admin: 06/16/18 08:18 Dose: 15 mg Pantoprazole Sodium (Protonix) 40 mg PO QDAC [facility] Last Admin: 06/16/18 09:53 Dose: 40 mg Pantoprazole Sodium (Protonix) 40 mg PO BID [facility] Last Admin: 06/16/18 10:00 Dose: 40 mg (Dronedarone Hcl [ (Multaq] 400 Mg) Tab) 1 each PO BID [facility] Last Admin: 06/15/18 21:06 Dose: Not Given (Vitamin B Complex [ (B Complex] Tab)) 1 each PO DAILY [facility] Last Admin: 06/15/18 08:47 Dose: Not Given (Ibandronate Sodium [Ibandronate Sodium] 150 Mg) Tab 1 each PO Q28D [facility] Last Admin: 06/15/18 08:47 Dose: Not Given Polyethylene Glycol (Miralax) 17 gm PO DAILY [facility] Last Admin: 06/16/18 10:03 Dose: Not Given Potassium Chloride (Micro-K) 10 meq PO BIDWM [facility] Last Admin: 06/16/18 11:53 Dose: 10 meq Prednisone (Deltasone) 5 mg PO DAILY [facility] Last Admin: 06/16/18 10:05 Dose: 5 mg Senna (Senokot) 17.2 mg PO Q12H PRN PRN Reason: Constipation Temazepam (Restoril) 15 mg PO QPM PRN PRN Reason: Insomnia Torsemide (Torsemide) 40 mg PO DAILY [facility] Last Admin: 06/16/18 09:55 Dose: 40 mg Valacyclovir HCl (Valtrex) 500 mg PO BID [facility] Last Admin: 06/16/18 09:53 Dose: 500 mg Atorvastatin Calcium [Lipitor] 20 mg PO QPM 05/31/13 Carvedilol [Coreg] 12.5 mg PO BID 05/31/13 Mycophenolate Mofetil [Cellcept] 1,000 mg PO BID 05/31/13 Pantoprazole Sodium 40 mg PO BID 05/31/13 Potassium Chloride [K-Dur] 10 meq PO BID 05/31/13 Cholecalciferol (Vitamin D3) [Vitamin D3] 2,000 unit PO DAILY 08/08/15 Cyanocobalamin (Vitamin B-12) [Vitamin B-12] 1,000 mcg PO DAILY 08/08/15 Dronedarone HCl [Multaq] 400 mg PO BIDWM 08/08/15 Vitamin B Complex [B Complex] 1 each PO DAILY 08/08/15 Aspirin [Aspirin EC] 162 mg PO DAILY 10/10/16 Duloxetine HCl [Cymbalta] 60 mg PO DAILY 10/10/16 Ferrous Sulfate 325 mg PO DAILY 10/10/16 Multivitamin [Theragran] 1 tab PO DAILY 10/10/16 Valacyclovir HCl [Valacyclovir] 500 mg PO DAILY 10/10/16 predniSONE [Prednisone] 5 mg PO DAILY 10/10/16 Ascorbic Acid [Vitamin C] 1,000 mg PO DAILY 03/02/17 Hydromorphone HCl/0.9% NaCl/Pf [Hydromorphone 20 mg/100 ml-Ns] 3.467 mg [id number] DAILY 03/02/17 Lactobacillus Acidophilus [Probiotic Acidophilus] 1 tab DAILY 03/02/17 Calcium Carbonate/Vitamin D3 [Calcium 500-Vit D3 200 Tablet] 1 tab PO BID 06/14/18 Ibandronate Sodium 150 mg PO Q28D 06/14/18 Torsemide 40 mg PO DAILY 06/14/18 Objective - Vital Signs/Intake & Output Reviewed Vital Signs: Yes Vital Signs: Vital Signs x48h Temp Pulse Resp BP Pulse Ox 06/16/18 11:42 37.5 C 80 16 122/44 L 92 06/16/18 08:07 37.1 C 76 16 103/48 L 94 06/16/18 04:50 37.0 C 84 20 113/44 L 98 Intake & Output: Intake & Output 06/13/18 06/14/18 06/15/18 06/16/18 23:59 23:59 23:59 23:59 Intake Total 1525 1903 470 Output Total 1350 2225 500 Balance 175 -322 -30 - Objective General Appearance: positive: No acute distress, Alert Eyes Bilateral: positive: PERRL, No lid inflammation Eyes: OU Conjunctivae pale ENT: positive: Pharynx nml, No signs of dehydration Neck: positive: Thyroid nml, No JVD, Trachea midline Respiratory: positive: Chest non-tender, No respiratory distress, Other (diminished) Cardiovascular: positive: Regular rate & rhythm, No gallop, Systolic murmur, Decreased pulse(s) Peripheral Pulses: 1+ Radial (R), 1+ Radial (L), 1+ Popliteal (R), 1+ Popliteal (L) Abdomen: positive: Non-tender, Nml bowel sounds, Other (rounded, soft) Back: positive: Nml inspection Skin: positive: No rash, Warm, Dry Extremities: positive: Pedal edema, Joint swelling (right hip swelling, post-op dressing is CDI.) Neurologic/Psychiatric: positive: Oriented x3, CN's nml (2-12), Motor nml, Sensation nml, Weakness, Depressed mood/affect Reflexes: Bicep (R): 3+, Bicep (L): 3+ - Lab Results Fish Bones: 06/16/18 17:38 06/17/18 05:55 Other Labs: Lab Results x24hrs 06/16/18 06/16/18 Range/Units 04:50 04:50 WBC 8.7 (4.8-10.8) x10^3/uL RBC 2.67 L (4.20-5.40) 10^6/uL Hgb 8.8 L (12.0-16.0) g/dL Hct 26.9 L (37.0-47.0) % MCV 100.7 H (81.0-99.0) fL MCH 33.0 H (27.0-31.0) pg MCHC 32.8 (32.0-36.0) g/dL RDW 15.7 H (12.0-15.0) % Plt Count 197 (130-450) 10^3/uL MPV 9.1 (7.9-10.8) fL Neut # (Auto) 6.5 (1.5-6.6) 10^3/uL Lymph # (Auto) 1.2 L (1.5-3.5) 10^3/uL Rains # (Auto) 0.8 (0.0-1.0) 10^3/uL Eos # (Auto) 0.1 (0.0-0.7) 10^3/uL Baso # (Auto) 0.1 (0.0-0.1) 10^3/uL Absolute Nucleated RBC 0.00 x10^3/uL Nucleated RBC % 0.0 /100WBC Sodium 136 (135-145) mmol/L Potassium 3.3 L (3.5-5.0) mmol/L Chloride 98 L (101-111) mmol/L Carbon Dioxide 34 H (21-32) mmol/L Anion Gap 4.0 L (6-13) BUN 19 (6-20) mg/dL Creatinine 0.6 (0.4-1.0) mg/dL Estimated GFR (MDRD) 98 (>89) Glucose 118 H (70-100) mg/dL Calcium 9.2 (8.5-10.3) mg/dL Total Bilirubin 0.5 (0.2-1.0) mg/dL AST 50 H (10-42) IU/L ALT 22 (10-60) IU/L Alkaline Phosphatase 52 (42-121) IU/L Total Protein 5.8 L (6.7-8.2) g/dL Albumin 3.4 (3.2-5.5) g/dL Globulin 2.4 (2.1-4.2) g/dL Albumin/Globulin Ratio 1.4 (1.0-2.2) ABX Reporting Has patient been on IV antibiotics over the past 48 hours?: No Sepsis Event Note (H) - Evaluation Current Stage of Sepsis: Resolved Assessment/Plan - Problem List (1) Closed intertrochanteric fracture of right hip Impression: The patient had an unwitnessed fall at home and suffered a right hip fracture. She underwent a right hip repair with Dr. Satrk, and is now post op day #2. She has been very alert and talkative. She has been using oxycodone orally every 4 hours as needed, AND she has an intrathecal pump implanted for her chronic back pain. Her right hip dressings are intact and she has had no known post op complications this far. She states that she has been falling for at least the past 6 months, and worries about returning home due to her having at least 2 steps in every room of her home. Plan: continue PT daily, social work for rehab placement. Qualifiers: Encounter type: initial encounter Fracture alignment: nondisplaced Qualified Code(s): S72.144A - Nondisplaced intertrochanteric fracture of right femur, initial encounter for closed fracture (2) Fall Impression: The patient states for the past one year, she has seen several specialists including neurology and cardiology and has undergone "full" work ups as to the cause of her unexplained syncope. She admits to at least 2 TIAs that occurred in 2016 and 2017. She does not remember any events leading up to this fall, and had no warning such as dizziness, fatigue, visual changes or diaphoresis. She states that she has a "bad mitral valve". A call was made to her primary buckle assembler office and I spoke with Dr. Alvarado in regards to medication adjustments since she continues to be hypotensive and bradycardic, which may be contributing to her falls. 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 Plan: Await echo results and fall precautions. Qualifiers: Encounter type: initial encounter Qualified Code(s): W19.XXXA - Unspecified fall, initial encounter (3) Atrial fibrillation Impression: She has been in sinus rhythm for this hospital stay. She is on Multaq (class III antiarrhythmics), and coreg; but not on anticoagulants, and will continue on her previous dose of 162mg of ASA upon discharge. She has been on DVT prophylaxis Lovenox since being post-op. Her vital signs have been controlled with a blood pressure of 103/48, and HR 69 today. After speaking with the patient's primary cardiology team, I am adjusting her Coreg dose from 12.5 down to 3.125mg BID given her increased falls thought to be caused by hypotension/bradycardia. Plan: Continue meds, and monitor vital signs, orthostatics daily. Qualifiers: Atrial fibrillation type: paroxysmal Qualified Code(s): I48.0 - Paroxysmal atrial fibrillation (4) Congestive heart failure Impression: The patient has a known history of cardiomyopathy as per chart review. She is prescribed Torsemide, multaq, and coreg at home. I am making adjustments to her Coreg dose as per her primary cardiology team. They also suggest to hold her torsemide for hypotension, or if her daily weights indicate a negative loss. Plan: Continue to monitor daily BNP, vital signs, daily weights, I/O, and titr ate coreg dose based on vital signs. Qualifiers: Heart failure type: systolic Heart failure chronicity: acute on chronic Qualified Code(s): I50.23 - Acute on chronic systolic (congestive) heart failure (5) Weakness Impression: The patient admits to profound weakness and increased falls prior to admission. She states that she has seen a neurologist and her buckle assembler for further work up with no conclusions. Her weakness is expected to be somewhat worsened since being post op, and this is one of her primary complaints on exam today. Plan: Continue daily PT for evaluation of possible placement verses home. (6) Iron deficiency anemia Impression: The patient is known to have a history of anemia and is prescribed a daily iron supplement, which has been continued. Her admitting H/H was 11.1/33.9, now down to 9.7/29.5. She had minimal blood loss intra-operatively and she has no signs of acute bleeding on exam. Plan: Continue to monitor, replace with PRBCs if hemoglobin goes below 7. Qualifiers: Iron deficiency anemia type: other iron deficiency Qualified Code(s): D50.8 - Other iron deficiency anemias (7) SLE (systemic lupus erythematosus) Impression: The patient is prescribed prednisone 5 mg once daily and was given a one time steroid boost immediately prior to her right hip repair. Her chronic prednisone use is unlikely to complicate postoperative infection risk and she will be continued on this. Plan: Continue to monitor and treat post-op pain. Qualifiers: Systemic lupus erythematosus type: unspecified Systemic lupus erythematosus organ involvement: unspecified Qualified Code(s): M32.9 - Systemic lupus erythematosus, unspecified
[2018-06-16] MEDS: VITAMIN B COMPLEX PO SCH (14:54)
[2018-06-16] MEDS: ONDANSETRON ODT 4 MG TABLET TL PRN (15:01)
[2018-06-16 17:41] LABS: BASOPHILS # (AUTO) 0.1 10^3/uL (0.0-0.1); BASOPHILS % (AUTO) 0.7 %; EOSINOPHILS # (AUTO) 0.1 10^3/uL (0.0-0.7); EOSINOPHILS % (AUTO) 0.6 %; HGB - HEMOGLOBIN 9.7 g/dL (12.0-16.0); LYMPHOCYTES % (AUTO) 8.1 %; MEAN CORPUSCULAR HEMOGLOBIN 32.8 pg (27.0-31.0); MEAN CORPUSCULAR HGB CONC 32.8 g/dL (32.0-36.0); MEAN CORPUSCULAR VOLUME 100.1 fL (81.0-99.0); MEAN PLATELET VOLUME 8.8 fL (7.9-10.8); MONOCYTES % (AUTO) 8.4 %; NEUTROPHILS # (AUTO) 9.9 10^3/uL (1.5-6.6); NEUTROPHILS % (AUTO) 82.2 %; PLT - PLATELET COUNT 213 10^3/uL (130-450); RED BLOOD COUNT 2.95 10^6/uL (4.20-5.40); RED CELL DISTRIBUTION WIDTH 15.3 % (12.0-15.0)
[2018-06-16] MEDS: DRONEDARONE HCL 400 MG PO SCH (18:39)
[2018-06-16] MEDS: ATORVASTATIN 10 MG TABLET PO SCH (21:17)
[2018-06-16] MEDS: CARVEDILOL 3.125 MG TABLET PO SCH (21:17)
[2018-06-17] MEDS: oxyCODONE 5 MG TABLET PO PRN ×5 (00:32→12:18)
[2018-06-17] MEDS: ACETAMINOPHEN 325 MG TABLET PO SCH ×3 (03:31→12:18)
[2018-06-17] MEDS: PANTOPRAZOLE 40 MG TABLET PO SCH ×2 (06:23→09:07)
[2018-06-17 06:47] LABS: ALBUMIN 3.4 g/dL (3.2-5.5); ALBUMIN/GLOBULIN RATIO 1.3 (1.0-2.2); CALCIUM 9.1 mg/dL (8.5-10.3); CREATININE 0.7 mg/dL (0.4-1.0); TOTAL PROTEIN 6.1 g/dL (6.7-8.2)
[2018-06-17] MEDS: ONDANSETRON ODT 4 MG TABLET TL PRN (07:26)
[2018-06-17] MEDS ORDERED: GLYCERIN ADULT SUPP PR SCH (08:00)
[2018-06-17] MEDS: MYCOPHENOLATE MOFETIL 250 MG CAPSULE PO SCH (08:53)
[2018-06-17] MEDS: ENOXAPARIN 40 MG/0.4 ML SYRINGE SUBQ SCH (08:53)
[2018-06-17] MEDS: valACYclovir 500 MG TABLET PO SCH (08:55)
[2018-06-17] MEDS: predniSONE 5 MG TABLET PO SCH (08:56)
[2018-06-17] MEDS: CYANOCOBALAMIN 500 MCG TABLET PO SCH (08:56)
[2018-06-17] MEDS: ASCORBIC ACID CHEW 500 MG TABLET PO SCH (08:56)
[2018-06-17] MEDS: CHOLECALCIFEROL 1,000 UNIT TABLET PO SCH (08:56)
[2018-06-17] MEDS: POTASSIUM CHLORIDE 10 MEQ CAPSULE PO SCH (08:56)
[2018-06-17] MEDS: DULoxetine 30 MG CAPSULE PO SCH (08:56)
[2018-06-17] MEDS: MULTIVITAMIN TABLET PO SCH (08:56)
[2018-06-17] MEDS: LACTOBACILLUS RHAMNOSUS GG CAPSULE PO SCH (08:56)
[2018-06-17] MEDS: CARVEDILOL 3.125 MG TABLET PO SCH (08:56)
[2018-06-17] MEDS: DRONEDARONE HCL 400 MG PO SCH (08:57)
[2018-06-17] MEDS: CALCIUM CARB (OYSTER SHELL) 500 MG TABLET PO SCH (08:57)
[2018-06-17] MEDS: LIDOCAINE PATCH 5% TOP SCH (08:57)
[2018-06-17] MEDS: DOCUSATE SODIUM 100 MG CAPSULE PO PRN (08:57)
[2018-06-17] MEDS: VITAMIN B COMPLEX PO SCH (09:05)
[2018-06-17] MEDS: POLYETHYLENE GLYCOL 3350 17 GM PACKET PO SCH (09:05)
[2018-06-17] MEDS: TORSEMIDE 20 MG TABLET PO SCH (09:06)
[2018-06-17] MEDS: HYDROMORPHONE HCL PERCUTA112 SCH (09:07)
[2018-06-17] MEDS: [UNRECOGNIZED DRUG - OTHER] PERCUTA112 SCH (09:07)
[2018-06-17] MEDS: NACL PERCUTA112 SCH (09:07)
--- NOTE | 2018-06-17 10:20 | Discharge Plan ---
"Discharge Plan for SNF / [facility] - Discharge Plan And Transition Orders Disposition: 03 SNF DC/Xfer Condition: Good Allergies and Adverse Reactions: Allergies Allergy/AdvReac Type Severity Reaction Status Date / Time iodine Allergy Rash Verified 06/14/18 03:48 NSAIDS (Non-Steroidal Allergy abd pain Verified 06/14/18 03:48 Anti-Inflamma pregabalin [From Lyrica] Allergy muscle Verified 06/14/18 03:48 spasms zolpidem tartrate * AdvReac Intermediate Hallucinati Verified 06/14/18 16:16 [From Ambien] ons amitriptyline AdvReac Hallucinati Verified 06/14/18 16:16 ons fentanyl AdvReac Hallucinati Verified 06/14/18 16:16 ons gabapentin AdvReac Hallucinati Verified 06/14/18 16:16 ons artichokes Allergy Unknown Uncoded 06/14/18 03:48 cantelope Allergy Unknown Uncoded 06/14/18 03:48 shellfish Allergy Unknown Uncoded 06/14/18 03:48 - SNF / [facility] Transition Orders Admit to (Facility): [facility] Under the care of (Name): Dr. Obrien Discharge Diagnosis: Closed intertrochanteric fracture of right hip (S72.141A) now post op right hip repair with Dr. Stark. Non-complicated post-op course. PT to continue at rehab. Fall at home (W19.XXXA) recurrent, stable. No falls while in the hospital. Atrial fibrillation (I48.91) stable, no evidence of a-fib. Continue meds. Iron deficiency anemia (D50.9) chronic, continue iron supplement. Chronic systolic CHF (congestive heart failure), NYHA class 3 (I50.22) chronic, stable. Diuretic dose decreased as per patient request. Cleared with primary ms sql developer team. Chronic back pain greater than 3 months duration (M54.9) remains with an intra- thecal implanted pump-Dilaudid. Next change out due 08/11/18. MARCO A (obstructive sleep apnea) (G47.33) chronic, stable, patient has home unit. 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 SLE (systemic lupus erythematosus) (M32.9) chronic, continue meds. Medicare Certification Statement: I certify that Post Hospital longterm care is medically necessary on a continuing basis for any of the conditions for which she/he is receiving care during hospitalization. Notify PCP of admission and forward orders to primary provider for signature. Weight on admission and: Weekly Other Notification Orders: Call PCP immediately if patient develops dyspnea, chest pain/tightness or edema. House Bowel Program: Yes Additional Bowel Program Orders: If no BM after 2 days, nurse may give M.O.M. 30ml PO PRN and/or ducolax Supp 1 MT and/or KEYA 250mg P.O., and/or senna 1-2 tabs PO. On day 3 nurse may give repeat above order until residents constipation is resolved. Annual Influenza Vaccine (between Apr 08 and November 05): Yes Two-step PPD per [facility] [id number] or approved exception documents: Yes Oxygen Orders: Home CPAP/without bleed in O2, no oxygen needs. Lab Tests or X-ray Orders: CBC/BMP in one week for anemia/electrolytes. Orthopedic Orders: Follow up with ortho in 2 weeks, Dr. Stark. Daily PT, rehab placement. Medication Orders: PLEASE REFER TO THE DISCHARGE MEDICATION LIST. Insulin Orders?: Yes - Medications New Prescriptions: Carvedilol [Coreg] 3.125 mg PO BID #60 tablet oxyCODONE [Roxicodone] 15 mg PO Q4-6H #25 tablet Torsemide 20 mg PO DAILY #30 tablet - Diet Type: Geriatric Texture: Regular Liquids: Thin May have monthly special meal: Yes - Therapies | Activity Therapy: Evaluation | Treat if indicated: PT, OT Rehabilitation Potential: Maximize functional status, Return to independent living, Maintain present ADL Functional Activity: Wt Bearing as Tolerated Assistance Devices: Walker"
--- NOTE | 2018-06-17 10:21 | DISCHARGE SUMMARY ---
Discharge Summary Admit Date: 06/14/18 Discharge Date: 06/17/18 Discharging Provider: AZUCENA Richter Primary Care Provider: Jah Mercado Code Status: Attempt Resuscitation Condition at Discharge: Good Discharge Disposition: 03 SNF DC/Xfer Discharge Facility Name: [facility] Age of [age]in[age] - DIAGNOSES Admission Diagnoses: Displaced intertrochanteric fracture of right femur, init (S72.141A) Unspecified atrial fibrillation (I48.91) Unspecified fall, initial encounter (W19.XXXA) Dorsalgia, unspecified (M54.9) Oth symptoms and signs involving the dgstv sys and abdomen (R19.8) Systemic lupus erythematosus, unspecified (M32.9) Discharge Diagnoses with Status of Each Condition: Closed intertrochanteric fracture of right hip (S72.141A) new on this admit, stable. Post op care to continue. Fall at home (W19.XXXA) chronic, stable. Atrial fibrillation (I48.91) chronic, stable. Iron deficiency anemia (D50.9) chronic, stable. Chronic systolic CHF (congestive heart failure), NYHA class 3 (I50.22) chronic, stable. Chronic back pain greater than 3 months duration (M54.9) chronic, stable. MARCO A (obstructive sleep apnea) (G47.33) chronic, stable. 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 SLE (systemic lupus erythematosus) (M32.9) chronic, stable. - HPI History of Present Illness: Patient is a 72-year-old female with a history of chronic pain, atrial fib rillation, who sustained a fall with a subsequent right hip fracture in her home last night, and was brought by EMS to ED earlier this morning. Her history is somewhat limited due to the patient's current pain level. Patient was in in her normal state of health. She went to go take a shower when she had a mechanical fall, without syncope, or presyncopal components, hit the back of her head agai nst the wall and landed on the floor in her bathroom. EMS arrived, transported to the hospital where an evaluation was done including CT scan of the head and neck, as well as x-ray of the hip and pelvis demonstrating a closed intertrochanteric right hip fracture with no abnormal findings on CT imaging of the neck or head with exception of previously known compression fracture.Patient is a 72-year-old female with a history of chronic pain, atrial fibrillation, who sustained a fall with a subsequent right hip fracture in her home earlier this morning. Patient woke up this morning in her normal state of health. She went to go take a shower when she had a mechanical fall, without syncope, or presyncopal components, hit the back of her head against the wall and landed on the floor in her bathroom. EMS arrived, transported to the hospital where an evaluation was done including CT scan of the head and neck, as well as x-ray of the hip and pelvis demonstrating a closed intertrochanteric right hip fracture with no abnormal findings on CT imaging of the neck or head with exception of previously known compression fracture. Laboratory evaluation in the emergency room was otherwise unremarkable, and Dr. Stark, orthopedic surgeon on-call was contacted, and he did accept the patient under his service for probable ORIF later today. He requested the hospitalist team admit the patient and our service was contacted to admit the patient. - CONSULTS | PROCEDURES Consultations: ortho surgery - HOSPITAL COURSE Hospital Course: The patient underwent a right hip repair without post-op complications. Below see hospital course: (1) Closed intertrochanteric fracture of right hip The patient had an unwitnessed fall at home and suffered a right hip fracture. She underwent a right hip repair with Dr. Stark, and is now post op day #2. She has been very alert and talkative. She has been using oxycodone orally every 4 hours as needed, AND she has an intrathecal pump implanted for her chronic back pain. Her right hip dressings are intact and she has had no known post op complications this far. She states that she has been falling for at least the past 6 months, and worries about returning home due to her having at least 2 steps in every room of her home. (2) Fall The patient states for the past one year, she has seen several specialists including neurology and cardiology and has undergone "full" work ups as to the cause of her unexplained syncope. She admits to at least 2 TIAs that occurred in 2016 and 2017. She does not remember any events leading up to this fall, and had no warning such as dizziness, fatigue, visual changes or diaphoresis. She states that she has a "bad mitral valve". A call was made to her primary gis analyst office and I spoke with Dr. Alvarado in regards to medication adjustments since she continues to be hypotensive and bradycardic, which may be contributing to her falls. He pointed out that she is also known to have Fostoria's disease, which may be giving her hypotension. (3) Atrial fibrillation She has been in sinus rhythm for this hospital stay. She is on Multaq (class III antiarrhythmics), and coreg; but not on anticoagulants, and will continue on her previous dose of 162mg of ASA upon discharge. She has been on DVT prophylaxis Lovenox since being post-op. Her vital signs have been controlled with a blood pressure of 103/48, and HR 69 today. After speaking with the patient's primary cardiology team, I am adjusting her Coreg dose from 12.5 down to 3.125mg BID given her increased falls thought to be caused by hypotension/bradycardia. (4) Congestive heart failure The patient has a known history of cardiomyopathy as per chart review. She is p rescribed Torsemide, multaq, and coreg at home. I am making adjustments to her Coreg dose as per her primary cardiology team. They also suggest to hold her torsemide for hypotension, or if her daily weights indicate a negative loss. (5) Weakness The patient admits to profound weakness and increased falls prior to admission. She states that she has seen a neurologist and her gis analyst for further work up with no conclusions. Her weakness is expected to be somewhat worsened since being post op, and this is one of her primary complaints on exam. (6) Iron deficiency anemia The patient is known to have a history of anemia and is prescribed a daily iron supplement, which has been continued. Her admitting H/H was 11.1/33.9, now down to 9.7/29.5. She had minimal blood loss intra-operatively and she has no signs of acute bleeding on exam. (7) SLE (systemic lupus erythematosus) The patient is prescribed prednisone 5 mg once daily and was given a one time steroid boost immediately prior to her right hip repair. Her chronic prednisone use is unlikely to complicate postoperative infection risk and she will be c ontinued on this. Disposition: The patient was medially stable and very talkative as usual, so was transferred to [facility] for further rehab. - ALLERGIES Allergies/Adverse Reactions: Allergies Allergy/AdvReac Type Severity Reaction Status Date / Time iodine Allergy Rash Verified 06/14/18 03:48 NSAIDS (Non-Steroidal Allergy abd pain Verified 06/14/18 03:48 Anti-Inflamma pregabalin [From Lyrica] Allergy muscle Verified 06/14/18 03:48 spasms zolpidem tartrate * AdvReac Intermediate Hallucinati Verified 06/14/18 16:16 [From Ambien] ons amitriptyline AdvReac Hallucinati Verified 06/14/18 16:16 ons fentanyl AdvReac Hallucinati Verified 06/14/18 16:16 ons gabapentin AdvReac Hallucinati Verified 06/14/18 16:16 ons artichokes Allergy Unknown Uncoded 06/14/18 03:48 cantelope Allergy Unknown Uncoded 06/14/18 03:48 shellfish Allergy Unknown Uncoded 06/14/18 03:48 - MEDICATIONS Home Medications: Ambulatory Orders Medication Instructions Recorded Confirmed Atorvastatin Calcium [Lipitor] 20 mg PO QPM 05/31/13 06/14/18 Mycophenolate Mofetil [Cellcept] 1,000 mg PO BID 05/31/13 06/14/18 Pantoprazole Sodium 40 mg PO BID 05/31/13 06/14/18 Potassium Chloride [K-Dur] 10 meq PO BID 05/31/13 06/14/18 Cholecalciferol (Vitamin D3) 2,000 unit PO DAILY 08/08/15 06/14/18 [Vitamin D3] Cyanocobalamin (Vitamin B-12) 1,000 mcg PO DAILY 08/08/15 06/14/18 [Vitamin B-12] Dronedarone HCl [Multaq] 400 mg PO BIDWM 08/08/15 06/14/18 Vitamin B Complex [B Complex] 1 each PO DAILY 08/08/15 06/14/18 Aspirin [Aspirin EC] 162 mg PO DAILY 10/10/16 06/14/18 Duloxetine HCl [Cymbalta] 60 mg PO DAILY 10/10/16 06/14/18 Ferrous Sulfate 325 mg PO DAILY 10/10/16 06/14/18 Multivitamin [Theragran] 1 tab PO DAILY 10/10/16 06/14/18 Valacyclovir HCl [Valacyclovir] 500 mg PO DAILY 10/10/16 06/14/18 predniSONE [Prednisone] 5 mg PO DAILY 10/10/16 06/14/18 Ascorbic Acid [Vitamin C] 1,000 mg PO DAILY 03/02/17 06/14/18 Hydromorphone HCl/0.9% NaCl/Pf 3.467 mg [id number] DAILY 03/02/17 03/02/17 [Hydromorphone 20 mg/100 ml-Ns] Lactobacillus Acidophilus 1 tab DAILY 03/02/17 06/14/18 [Probiotic Acidophilus] Calcium Carbonate/Vitamin D3 1 tab PO BID 06/14/18 06/14/18 [Calcium 500-Vit D3 200 Tablet] Ibandronate Sodium 150 mg PO Q28D 06/14/18 06/14/18 Torsemide 40 mg PO DAILY 06/14/18 06/14/18 Carvedilol [Coreg] 3.125 mg PO BID #60 tablet 06/17/18 Torsemide 20 mg PO DAILY #30 tablet 06/17/18 oxyCODONE [Roxicodone] 15 mg PO Q3H #25 tablet 06/17/18 - PHYSICAL EXAM AT DISCHARGE General Appearance: positive: No acute distress, Alert Eyes Bilateral: positive: Normal inspection, PERRL ENT: positive: Pharynx nml, No signs of dehydration Neck: positive: Thyroid nml, No JVD, Trachea midline Respiratory: positive: Chest non-tender, No respiratory distress, Breath sounds nml Cardiovascular: positive: Regular rate & rhythm, No gallop, Systolic murmur Peripheral Pulses: positive: 2+ Abdomen: positive: Non-tender, Nml bowel sounds, Other (rounded, soft) Back: positive: Nml inspection Skin: positive: No rash, Warm, Dry, Pallor Extremities: positive: Pedal edema (trace, ), Joint swelling (right usual post- op swelling, dressing is CDI without drainage.) Neurologic/Psychiatric: positive: Oriented x3, CN's nml (2-12), Motor nml, Sensation nml, Weakness, Depressed mood/affect Reflexes: Bicep (R): 3+, Bicep (L): 3+ - LABS Result Diagrams: 06/16/18 17:38 06/17/18 05:55 - SEPSIS Current Stage of Sepsis: Resolved - TIME SPENT Time Spent in Discharge (Minutes): 45
[2018-06-17 11:24] VITALS: BP 125/47
== END 2018-06-17 14:30 | DRG 481 ==
LOC: EDUNIT# → ED 03:41 → MS2 05:23 → OBSVTOIN 07:43
PROVIDERS: ADMIT Family Medicine Sports Medicine; ATTEND Nurse Practitioner
PROC: 0QS636Z Reposition Right Upper Femur with Intramedullary Internal Fixation Device, Percutaneous Approach (ICD-10-PCS; principal; 2018-06-14 11:30)
DX: S72.141A Displaced intertrochanteric fracture of right femur, initial encounter for closed fracture (principal); S09.90XA Unspecified injury of head, initial encounter; M54.2 Cervicalgia; I50.22 Chronic systolic (congestive) heart failure; E27.1 Primary adrenocortical insufficiency; I42.9 Cardiomyopathy, unspecified; I95.9 Hypotension, unspecified; R00.1 Bradycardia, unspecified; R53.1 Weakness; I48.2 Chronic atrial fibrillation; M32.9 Systemic lupus erythematosus, unspecified; D50.9 Iron deficiency anemia, unspecified; G89.29 Other chronic pain; G47.33 Obstructive sleep apnea (adult) (pediatric); R55 Syncope and collapse; W18.30XA Fall on same level, unspecified, initial encounter; Y92.002 Bathroom of unspecified non-institutional (private) residence as the place of occurrence of the external cause; E87.8 Other disorders of electrolyte and fluid balance, not elsewhere classified; K59.09 Other constipation; M54.9 Dorsalgia, unspecified; M85.80 Other specified disorders of bone density and structure, unspecified site; Z96.89 Presence of other specified functional implants; Z91.81 History of falling; Z79.899 Other long term (current) drug therapy; Z79.82 Long term (current) use of aspirin; Z79.52 Long term (current) use of systemic steroids; Z86.14 Personal history of Methicillin resistant Staphylococcus aureus infection; Z79.891 Long term (current) use of opiate analgesic; Z86.73 Personal history of transient ischemic attack (TIA), and cerebral infarction without residual deficits
CPT/HCPCS: 36415; 51703; 70450; 71045; 72125; 80053; 83690; 83735; 84100; 84484; 85014; 85018; 85025; 85610; 85730; 86850; 86900; 86901; 93005; 93306; 96365; 96375; 96376; 99283; 99284

== ENCOUNTER 2018-06-28 16:51 | Outpatient (CLI) | payer MEDICARE, OTHER | END 2018-06-28 16:52 | disposition short-term general hospital (02) | LOC: EMS 16:51 | PROVIDERS: ATTEND Surgery | DX: R07.89 Other chest pain (principal) | CPT/HCPCS: A0425; A0427 ==

== ENCOUNTER 2018-08-11 10:45 | Outpatient (CLI) | payer MEDICARE, OTHER ==
[2018-08-11 11:19] LABS: BASOPHILS # (AUTO) 0.1 10^3/uL (0.0-0.1); BASOPHILS % (AUTO) 1.3 %; EOSINOPHILS # (AUTO) 0.2 10^3/uL (0.0-0.7); EOSINOPHILS % (AUTO) 3.2 %; HGB - HEMOGLOBIN 9.5 g/dL (12.0-16.0); LYMPHOCYTES # (AUTO) 1.5 10^3/uL (1.5-3.5); LYMPHOCYTES % (AUTO) 19.2 %; MEAN CORPUSCULAR HEMOGLOBIN 31.1 pg (27.0-31.0); MEAN CORPUSCULAR HGB CONC 31.4 g/dL (32.0-36.0); MEAN CORPUSCULAR VOLUME 99.1 fL (81.0-99.0); MEAN PLATELET VOLUME 7.7 fL (7.9-10.8); MONOCYTES # (AUTO) 0.8 10^3/uL (0.0-1.0); MONOCYTES % (AUTO) 10.3 %; NEUTROPHILS # (AUTO) 5.2 10^3/uL (1.5-6.6); PLT - PLATELET COUNT 413 10^3/uL (130-450); RED BLOOD COUNT 3.05 10^6/uL (4.20-5.40); RED CELL DISTRIBUTION WIDTH 15.3 % (12.0-15.0); WHITE BLOOD COUNT 7.8 x10^3/uL (4.8-10.8)
== END 2018-08-11 23:59 | disposition home or self-care (01) ==
LOC: LAB.R 10:45
DX: D64.9 Anemia, unspecified (principal)
CPT/HCPCS: 85025

== ENCOUNTER 2018-11-25 15:08 | Outpatient (CLI) | payer MEDICARE, OTHER ==
--- NOTE | 2018-11-27 08:17 | Ultrasound Report ---
Reason: UTI Procedure Date: 11/25/2018 Accession Number: [id number] / [id number] Procedure: US - Retroperitoneal CPT Code: FULL RESULT: EXAM: RENAL ULTRASOUND EXAM DATE: 11/25/2018 04:24 PM. CLINICAL HISTORY: UTI. COMPARISON: ABDOMEN/PELVIS W/O 10/10/2016 11:17 AM. TECHNIQUE: Real-time scanning was performed with static images obtained. FINDINGS: Right Kidney: 9.7 x 5 x 4.6 cm. Normal echotexture with no stones, contour-deforming masses, or hydronephrosis. 2.4 cm lower pole simple cyst. Left Kidney: 10.6 x 5.8 x 4.9 cm. Normal echotexture with no stones, contour-deforming masses, or hydronephrosis. Bladder: Bilateral jets seen. The prevoid bladder volume was 133 cc. The postvoid bladder volume was 0 cc. Other: None. IMPRESSION: 1. Normal cortical echogenicity of the bilateral kidneys without evidence for calculi or hydronephrosis. 2. Bilateral urinary bladder jets are seen. RADIA
== END 2018-11-25 15:09 | disposition home or self-care (01) ==
LOC: DI 15:08
PROVIDERS: ATTEND Urology
DX: N39.0 Urinary tract infection, site not specified (principal)
CPT/HCPCS: 76770

== ENCOUNTER 2018-12-11 16:23 | Outpatient (CLI) | payer MEDICARE, OTHER | END 2018-12-11 16:24 | disposition home or self-care (01) | LOC: SC 16:23 | PROVIDERS: ATTEND Nurse Practitioner Family | DX: G47.33 Obstructive sleep apnea (adult) (pediatric) (principal) | CPT/HCPCS: 99214; G0463; 99212 ==

== ENCOUNTER 2018-12-25 15:21 | Outpatient (CLI) | payer MEDICARE, OTHER ==
[2018-12-25 15:37] LABS: BILIRUBIN,URINE NEGATIVE (NEGATIVE); GLUCOSE, URINE (UA) NEGATIVE (NEGATIVE); KETONES,URINE (UA) NEGATIVE (NEGATIVE); LEUKOCYTE ESTERASE, URINE MODERATE (NEGATIVE); NITRITE,URINE NEGATIVE (NEGATIVE); OCCULT BLOOD,URINE NEGATIVE (NEGATIVE); PH,URINE 5.5 PH (5.0-7.5); PROTEIN,URINE NEGATIVE (NEGATIVE); UROBILINOGEN,URINE 0.2 (NORMAL) E.U./dL (NORMAL)
[2018-12-25 15:38] LABS: CLARITY,URINE CLOUDY (CLEAR)
[2018-12-25 15:46] LABS: BACTERIA,URINE Many /HPF (None Seen); RBC,URINE 0-5 /HPF (0-5); SQUAMOUS EPITHELIAL CELL,UR RARE Squamous (<= Few)
== END 2018-12-25 15:22 | disposition home or self-care (01) ==
LOC: LAB 15:21
PROVIDERS: ATTEND Internal Medicine
DX: N30.00 Acute cystitis without hematuria (principal)
CPT/HCPCS: 81001; 87077; 87086; 87181

== ENCOUNTER 2019-01-26 15:40 | Emergency (ER) | payer MEDICARE, OTHER ==
[2019-01-26] MEDS ORDERED: MORPHINE 2 MG/ML CARPUJECT IVP STA (16:06)
[2019-01-26] MEDS ORDERED: MORPHINE 2 MG/ML CARPUJECT IM STA (17:11)
--- NOTE | 2019-01-26 17:19 | XRAY Report ---
Reason: Suspected dislocation left prosthetic shoulder Procedure Date: 01/26/2019 Accession Number: [id number] / [id number] Procedure: XR - Shoulder 3 View LT CPT Code: FULL RESULT: EXAM: LEFT SHOULDER RADIOGRAPHY EXAM DATE: 01/26/2019 04:31 PM. CLINICAL HISTORY: Suspected dislocation left prosthetic shoulder. COMPARISON: XR SHOULDER COMPLETE 2 VIEW 09/30/2011 12:43 PM RT SHOULDER 02/16/2007 4:56 PM. TECHNIQUE: 3 views. FINDINGS: Bones: Normal. No fracture or bone lesion. Joints: Prior left shoulder replacement. No convincing evidence for dislocation. There are ossific and/or calcific densities along the inferior aspect of glenohumeral joint. Soft tissues: The visualized hemithorax is unremarkable. No soft tissue swelling. IMPRESSION: Prior left shoulder replacement. No dislocation evident. RADIA ADDENDUM: 01/26/19 18:51 On further review, there is anterior and superior subluxation of proximal humerus relative to glenoid region on 4:08 PM film. This may represent subluxation or dislocation.
--- NOTE | 2019-01-26 17:31 | ED Physician Documentation ---
PD HPI UPPER EXT INJURY - Stated complaint Stated Complaint: LT SHOULDER PX - Chief complaint Chief Complaint: Ext Problem - History obtained from History obtained from: Patient - History of Present Illness Location: Left, Shoulder Type of injury: Other (dislocation) Where injury occurred: Home Timing - onset: How many hours ago ("a few") Timing - details: Still present Associated symptoms: No: Weakness, Numbness Contributing factors: Prosthetic joint Similar symptoms before: No diagnosis (Previous shoulder dislocations, reduced by patient.) - Additonal information Additional information: The patient is a 73-year-old female who presents with left shoulder pain that started a few hours prior to arrival when she changed positions in bed. She states the "joint is out." She has a history of similar symptoms occasionally in the past, but she has always been able to reduce it on her own without medical intervention. She has history of left rotator cuff tear. She is status post bilateral shoulder replacements. She is right-hand dominant. Review of Systems Constitutional: denies: Fever Cardiac: denies: Chest pain / pressure Respiratory: denies: Dyspnea GI: denies: Nausea, Vomiting Skin: denies: Rash Musculoskeletal: reports: Joint pain (Left shoulder.) Neurologic: denies: Focal weakness, Numbness, Headache PD PAST MEDICAL HISTORY - Past Medical History Cardiovascular: Atrial fibrillation Respiratory: Sleep apnea Neuro: None Endocrine/Autoimmune: None, Systemic lupus erythematosus GI: Chronic diarrhea, Chronic constipation : Other HEENT: None Psych: None Musculoskeletal: Osteoarthritis, Osteopenia, Chronic back pain Derm: None - Past Surgical History Past Surgical History: Yes General: Cholecystectomy Ortho: Shoulder arthroplasty, Spine surgery, 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 Cardiovascular: Other HEENT: Cataracts Derm: Other - Present Medications Home Medications: Ambulatory Orders Medication Instructions Recorded Confirmed Atorvastatin Calcium [Lipitor] 20 mg PO QPM 05/31/13 06/14/18 Mycophenolate Mofetil [Cellcept] 1,000 mg PO BID 05/31/13 06/14/18 Pantoprazole Sodium 40 mg PO BID 05/31/13 06/14/18 Potassium Chloride [K-Dur] 10 meq PO BID 05/31/13 06/14/18 Cholecalciferol (Vitamin D3) 2,000 unit PO DAILY 08/08/15 06/14/18 [Vitamin D3] Cyanocobalamin (Vitamin B-12) 1,000 mcg PO DAILY 08/08/15 06/14/18 [Vitamin B-12] Dronedarone HCl [Multaq] 400 mg PO BIDWM 08/08/15 06/14/18 Vitamin B Complex [B Complex] 1 each PO DAILY 08/08/15 06/14/18 Aspirin [Aspirin EC] 162 mg PO DAILY 10/10/16 06/14/18 Duloxetine HCl [Cymbalta] 60 mg PO DAILY 10/10/16 06/14/18 Ferrous Sulfate 325 mg PO DAILY 10/10/16 06/14/18 Multivitamin [Theragran] 1 tab PO DAILY 10/10/16 06/14/18 Valacyclovir HCl [Valacyclovir] 500 mg PO DAILY 10/10/16 06/14/18 predniSONE [Prednisone] 5 mg PO DAILY 10/10/16 06/14/18 Ascorbic Acid [Vitamin C] 1,000 mg PO DAILY 03/02/17 06/14/18 Hydromorphone HCl/0.9% NaCl/Pf 3.467 mg [id number] DAILY 03/02/17 03/02/17 [Hydromorphone 20 mg/100 ml-Ns] Lactobacillus Acidophilus 1 tab DAILY 03/02/17 06/14/18 [Probiotic Acidophilus] Calcium Carbonate/Vitamin D3 1 tab PO BID 06/14/18 06/14/18 [Calcium 500-Vit D3 200 Tablet] Ibandronate Sodium 150 mg PO Q28D 06/14/18 06/14/18 Torsemide 40 mg PO DAILY 06/14/18 06/14/18 Carvedilol [Coreg] 3.125 mg PO BID #60 tablet 06/17/18 Torsemide 20 mg PO DAILY #30 tablet 06/17/18 oxyCODONE [Roxicodone] 15 mg PO Q3H #25 tablet 06/17/18 - Allergies Allergies/Adverse Reactions: Allergies Allergy/AdvReac Type Severity Reaction Status Date / Time iodine Allergy Rash Verified 01/26/19 15:46 NSAIDS (Non-Steroidal Allergy abd pain Verified 01/26/19 15:46 Anti-Inflamma pregabalin [From Lyrica] Allergy muscle Verified 01/26/19 15:46 spasms zolpidem tartrate * AdvReac Intermediate Hallucinati Verified 01/26/19 15:46 [From Ambien] ons amitriptyline AdvReac Hallucinati Verified 01/26/19 15:46 ons fentanyl AdvReac Hallucinati Verified 01/26/19 15:46 ons gabapentin AdvReac Hallucinati Verified 01/26/19 15:46 ons artichokes Allergy Unknown Uncoded 01/26/19 15:46 cantelope Allergy Unknown Uncoded 01/26/19 15:46 shellfish Allergy Unknown Uncoded 01/26/19 15:46 - Social History Does the pt smoke?: No Smoking Status: Never smoker Does the pt drink ETOH?: No Does the pt have substance abuse?: No - Immunizations Immunizations are current?: Yes - POLST Patient has POLST: No PD ED PE NORMAL - Vitals Vital signs reviewed: Yes (normal) - General General: Alert and oriented X 3, Well developed/nourished - HEENT HEENT: Atraumatic - Neck Neck: No bony TTP - Cardiac Cardiac: RRR - Respiratory Respiratory: No respiratory distress, Clear bilaterally - Abdomen Abdomen: Soft, Non tender - Derm Derm: No rash - Extremities Extremities: Other (The left upper extremity is held in external rotation, with inability to cross the forearm over the abdomen. There is well-healed surgical scar over the anterior deltoid region. Distal neurovascular is intact.) - Neuro Neuro: Alert and oriented X 3, No motor deficit, No sensory deficit Results - Vitals Vitals: Vital Signs - 24 hr 01/26/19 01/26/19 01/26/19 15:43 17:31 18:00 Temperature 36.4 C L Heart Rate 77 69 76 Respiratory 16 16 15 Rate Blood Pressure 127/84 H 106/50 L O2 Saturation 95 93 01/26/19 01/26/19 01/26/19 18:05 18:07 19:00 Temperature Heart Rate 74 69 79 Respiratory 16 18 14 Rate Blood Pressure 118/60 111/58 L O2 Saturation 96 98 99 Oxygen O2 Source Nasal cannula - Rads (name of study) left shoulder Radiology: Prelim report reviewed, EMP read contemporaneously, See rad report (Prior left shoulder replacement. No dislocation is evident. There are ossific and/or calcific densities along the inferior aspect of the glenohumeral joint.) left shoulder post reduction Radiology: Prelim report reviewed, EMP read contemporaneously, See rad report (Prior left shoulder replacement. Recent subluxation or dislocation has been reduced.) Procedures - Reduction Body part reduced: Left, Shoulder Fracture or dislocation: Dislocation Anesthesia: Conscious sedation, Morphine (2 mg), Propofol (50 mg), Versed (0.5 mg) Shoulder reduction technique: Traction - counter tract Reduction aftercare: NV intact, Xray confirms reduction, Alignment improved, Sling, Patient tolerated well PD MEDICAL DECISION MAKING - ED course Complexity details: reviewed results, re-evaluated patient, considered differential, d/w patient, d/w family ED course: The patient's presentation is significant for left shoulder dislocation with prosthetic joint. The initial x-ray was inconclusive, but clinically a left anterior shoulder dislocation was present. Treatment in the emergency department included administration of morphine 2 mg IV. After discussion of conscious sedation and procedure with the patient, the shoulder was reduced under procedural sedation using Versed 0.5 mg IV and propofol 50 mg IV. The manipulation resulted in reduction of the shoulder dislocation. Postreduction x-ray reveals good alignment. An arm sling was applied. I discussed with the patient and her the results of the manipulation and x-rays, symptomatic treatment and outpatient follow-up, as well as potentially worrisome signs or symptoms that should prompt reevaluation in the emergency department. Departure - Departure Disposition: 01 Home, Self Care Clinical Impression: Closed anterior dislocation of left shoulder Qualifiers: Encounter type: initial encounter Qualified Code(s): S43.015A - Anterior dislocation of left humerus, initial encounter Condition: Stable Health Concerns: shoulder dislocation Plan of Treatment: left arm sling Care Goals: maintain shoulder reduction Assessment: see above Instructions: ED Dislocation Shoulder Redu Follow-Up: ORTHOPEDICS [Provider Group] Jah Mercado MD [Primary Care Provider] - Comments: Continue to wear the left arm sling except when bathing or showering. Follow-up with your orthopedic surgeon within 2 weeks. Call to schedule appointment. Return to the emergency department if you develop recurrent shoulder dislocation, or otherwise worsening symptoms. Discharge Date/Time: 01/26/19 19:27
[2019-01-26] MEDS ORDERED: PROPOFOL 200 MG/20 ML VIAL IVP STA (17:46)
[2019-01-26] MEDS ORDERED: MIDAZOLAM 2 MG/2 ML VIAL IVP STA (17:47)
--- NOTE | 2019-01-26 18:53 | XRAY Report ---
Reason: post shoulder reduction Procedure Date: 01/26/2019 Accession Number: [id number] / [id number] Procedure: XR - Shoulder 2 View LT CPT Code: FULL RESULT: EXAM: LEFT SHOULDER RADIOGRAPHY EXAM DATE: 01/26/2019 06:24 PM. CLINICAL HISTORY: Post shoulder reduction. COMPARISON: SHOULDER 3 VIEW LT 01/26/2019 4:08 PM. TECHNIQUE: 3 views. FINDINGS: Bones: Normal. No fracture or bone lesion. Joints: Prior left shoulder replacement. No dislocation. Soft tissues: Thoracic spine stimulator leads. Thoracic spine fusion hardware. IMPRESSION: Prior left shoulder replacement. Recent subluxation or dislocation has been reduced. RADIA
[2019-01-26 19:03] VITALS: BP 111/58
--- NOTE | 2019-01-31 07:39 | ED Physician Documentation ---
ED Addendum - Addendum Addendum: 01/31/19 07:38 Total time of procedural sedation was 10 minutes.
== END 2019-01-26 19:27 | disposition home or self-care (01) ==
LOC: ED 15:40
DX: M24.412 Recurrent dislocation, left shoulder (principal); X50.1XXA Overexertion from prolonged static or awkward postures, initial encounter; Y92.003 Bedroom of unspecified non-institutional (private) residence as the place of occurrence of the external cause; Z96.612 Presence of left artificial shoulder joint; Z96.611 Presence of right artificial shoulder joint; M32.9 Systemic lupus erythematosus, unspecified; Z79.82 Long term (current) use of aspirin
CPT/HCPCS: 23650; 94770; 99152; 99284

== ENCOUNTER 2019-02-01 10:24 | Outpatient (CLI) | payer MEDICARE, OTHER ==
[2019-02-01 11:00] LABS: ABG PCO2 46 mmHg (34-45); ABG PO2 78 mmHg (80-100)
[2019-02-01 11:01] LABS: ABG BASE EXCESS 1.9 mmol/L (-2.0-3.0); ABG HCO3 27.2 mmol/L (22.0-26.0); ABG OXYGEN SATURATION 95 % (94-98); ABG TCO2 28.6 MMOL/L (21.0-29.0); ALLEN TEST POSITIVE
== END 2019-02-01 10:25 | disposition home or self-care (01) ==
LOC: LAB 10:24
PROVIDERS: ATTEND Nurse Practitioner
DX: J84.9 Interstitial pulmonary disease, unspecified (principal)
CPT/HCPCS: 36415; 36600; 82803

== ENCOUNTER 2019-02-01 11:28 | Outpatient (CLI) | payer MEDICARE, OTHER | END 2019-02-01 11:29 | disposition home or self-care (01) | LOC: SC 11:28 | PROVIDERS: ATTEND Nurse Practitioner Family | DX: G47.33 Obstructive sleep apnea (adult) (pediatric) (principal); R09.02 Hypoxemia; J84.9 Interstitial pulmonary disease, unspecified | CPT/HCPCS: 36415; 36600; 82803; 99214; G0463; 99212 ==

== ENCOUNTER 2019-02-24 15:25 | Emergency (ER) | payer MEDICARE, OTHER ==
[2019-02-24] MEDS ORDERED: PROPOFOL 200 MG/20 ML VIAL IVP STA (16:01)
[2019-02-24] MEDS ORDERED: SODIUM CHLORIDE 0.9% 1,000 ML IV ONE (16:03)
--- NOTE | 2019-02-24 16:35 | XRAY Report ---
Reason: L shoulder pain, has artificial joint Procedure Date: 02/24/2019 Accession Number: [id number] / [id number] Procedure: XR - Shoulder 3 View LT CPT Code: FULL RESULT: EXAM: LEFT SHOULDER RADIOGRAPHY EXAM DATE: 02/24/2019 04:15 PM. CLINICAL HISTORY: Left shoulder pain. Has artificial joint. COMPARISON: SHOULDER 2 VIEW LT 01/26/2019 6:09 PM. TECHNIQUE: 4 views. FINDINGS: Bones/Joints: Humeral arthroplasty in place, with abnormal subluxation anteriorly and superiorly. The underlying glenoid is not well imaged. Unremarkable acromioclavicular joint. Soft tissues: Unremarkable. IMPRESSION: Shoulder arthroplasty in place, subluxed superiorly and anteriorly, with poor delineation of the underlying glenoid. RADIA
--- NOTE | 2019-02-24 17:26 | ED Physician Documentation ---
PD HPI UPPER EXT INJURY - Stated complaint Stated Complaint: LT SHOULD PX - Chief complaint Chief Complaint: Ext Problem - History obtained from History obtained from: Patient - History of Present Illness Location: Left, Shoulder Pain level max: 10 Pain level now: 10 Improved by: Rest Worsened by: Moving Associated symptoms: No: Weakness, Numbness, Tingling, Swelling Contributing factors: No: Anticoagulated - Additonal information Additional information: 73-year-old female presents to the emergency department stating that her left shoulder is dislocated. She has a history of bilateral shoulder replacements. This is occurred several times in the past. Feels similar. Worse with movement and better with rest Review of Systems Constitutional: denies: Fever, Chills Skin: denies: Rash Musculoskeletal: denies: Neck pain, Back pain Neurologic: denies: Headache PD PAST MEDICAL HISTORY - Past Medical History Cardiovascular: Atrial fibrillation Respiratory: Sleep apnea Neuro: None Endocrine/Autoimmune: None, Systemic lupus erythematosus GI: Chronic diarrhea, Chronic constipation : Other HEENT: None Psych: None Musculoskeletal: Osteoarthritis, Osteopenia, Chronic back pain Derm: None - Past Surgical History Past Surgical History: Yes General: Cholecystectomy Ortho: Shoulder arthroplasty, Spine surgery, 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 Cardiovascular: Other HEENT: Cataracts Derm: Other - Present Medications Home Medications: Ambulatory Orders Medication Instructions Recorded Confirmed Atorvastatin Calcium [Lipitor] 20 mg PO QPM 05/31/13 06/14/18 Mycophenolate Mofetil [Cellcept] 1,000 mg PO BID 05/31/13 06/14/18 Pantoprazole Sodium 40 mg PO BID 05/31/13 06/14/18 Potassium Chloride [K-Dur] 10 meq PO BID 05/31/13 06/14/18 Cholecalciferol (Vitamin D3) 2,000 unit PO DAILY 08/08/15 06/14/18 [Vitamin D3] Cyanocobalamin (Vitamin B-12) 1,000 mcg PO DAILY 08/08/15 06/14/18 [Vitamin B-12] Dronedarone HCl [Multaq] 400 mg PO BIDWM 08/08/15 06/14/18 Vitamin B Complex [B Complex] 1 each PO DAILY 08/08/15 06/14/18 Aspirin [Aspirin EC] 162 mg PO DAILY 10/10/16 06/14/18 Duloxetine HCl [Cymbalta] 60 mg PO DAILY 10/10/16 06/14/18 Ferrous Sulfate 325 mg PO DAILY 10/10/16 06/14/18 Multivitamin [Theragran] 1 tab PO DAILY 10/10/16 06/14/18 Valacyclovir HCl [Valacyclovir] 500 mg PO DAILY 10/10/16 06/14/18 predniSONE [Prednisone] 5 mg PO DAILY 10/10/16 06/14/18 Ascorbic Acid [Vitamin C] 1,000 mg PO DAILY 03/02/17 06/14/18 Hydromorphone HCl/0.9% NaCl/Pf 3.467 mg [id number] DAILY 03/02/17 03/02/17 [Hydromorphone 20 mg/100 ml-Ns] Lactobacillus Acidophilus 1 tab DAILY 03/02/17 06/14/18 [Probiotic Acidophilus] Calcium Carbonate/Vitamin D3 1 tab PO BID 06/14/18 06/14/18 [Calcium 500-Vit D3 200 Tablet] Ibandronate Sodium 150 mg PO Q28D 06/14/18 06/14/18 Torsemide 40 mg PO DAILY 06/14/18 06/14/18 Carvedilol [Coreg] 3.125 mg PO BID #60 tablet 06/17/18 Torsemide 20 mg PO DAILY #30 tablet 06/17/18 oxyCODONE [Roxicodone] 15 mg PO Q3H #25 tablet 06/17/18 - Allergies Allergies/Adverse Reactions: Allergies Allergy/AdvReac Type Severity Reaction Status Date / Time iodine Allergy Rash Verified 02/24/19 15:30 NSAIDS (Non-Steroidal Allergy abd pain Verified 02/24/19 15:30 Anti-Inflamma pregabalin [From Lyrica] Allergy muscle Verified 02/24/19 15:30 spasms zolpidem tartrate * AdvReac Intermediate Hallucinati Verified 02/24/19 15:30 [From Ambien] ons amitriptyline AdvReac Hallucinati Verified 02/24/19 15:30 ons fentanyl AdvReac Hallucinati Verified 02/24/19 15:30 ons gabapentin AdvReac Hallucinati Verified 02/24/19 15:30 ons artichokes Allergy Unknown Uncoded 02/24/19 15:30 cantelope Allergy Unknown Uncoded 02/24/19 15:30 shellfish Allergy Unknown Uncoded 02/24/19 15:30 - Social History Does the pt smoke?: No Smoking Status: Never smoker Does the pt drink ETOH?: No Does the pt have substance abuse?: No - Immunizations Immunizations are current?: Yes - POLST Patient has POLST: No PD ED PE NORMAL - Vitals Vital signs reviewed: Yes - General General: Alert and oriented X 3, No acute distress - HEENT HEENT: Moist mucous membranes - Neck Neck: Supple, no meningeal sign - Cardiac Cardiac: RRR, Strong equal pulses - Respiratory Respiratory: No respiratory distress, Clear bilaterally - Abdomen Abdomen: Soft, Non tender, Non distended - Derm Derm: Warm and dry - Extremities Extremities: Other (Tenderness to palpation over the left shoulder. Empty socket palpated. Neurovascularly intact.) - Neuro Neuro: Alert and oriented X 3 - Psych Psych: Normal mood, Normal affect Results - Vitals Vitals: Vital Signs - 24 hr 02/24/19 02/24/19 02/24/19 15:27 16:50 16:55 Temperature 36.0 C L Heart Rate 78 78 79 Respiratory 18 16 16 Rate Blood Pressure 124/57 L 116/69 O2 Saturation 95 98 02/24/19 02/24/19 02/24/19 17:02 17:04 17:33 Temperature Heart Rate 79 83 78 Respiratory 18 24 19 Rate Blood Pressure 127/52 L 131/114 H O2 Saturation 98 98 02/24/19 18:17 Temperature Heart Rate 81 Respiratory 23 Rate Blood Pressure 138/60 H O2 Saturation 96 Oxygen O2 Source Room air - Rads (name of study) Left shoulder x-ray Radiology: Prelim report reviewed, EMP read contemporaneously, See rad report (Shoulder arthroplasty in place, subluxed superiorly and anteriorly, with poor delineation of the underlying glenoid. ) Postreduction x-ray Radiology: Prelim report reviewed, EMP read contemporaneously, See rad report (relocated) Procedures - Reduction Body part reduced: Left, Shoulder (Prosthetic) Fracture or dislocation: Dislocation Anesthesia: Propofol (50) Reduction aftercare: NV intact, Xray confirms reduction, Sling, Patient tolerated well - Procedural sedation Sedation prep: Informed consent, Time out completed, Last meal (3 hrs), AHA 2 - mild disease Sedation medications: propofol, given by MD Patient status during sedation: Maintained airway, Recovered uneventfully Sedation recovery: Recovered uneventfully Time in sedation (Minutes): 20 PD MEDICAL DECISION MAKING - ED course Complexity details: reviewed old records, reviewed results, re-evaluated patient, considered differential, d/w patient ED course: Patient with a recurrent shoulder dislocation. Reduced under propofol sedation, 50 mg. Patient tolerated well. She will follow-up with her doctor for further care. Patient counseled regarding signs and symptoms for which I believe and urgent re-evaluation would be necessary. Patient with good understanding of and agreement to plan and is comfortable going home at this time This document was made in part using voice recognition software. While efforts are made to proofread this document, sound alike and grammatical errors may occur. Sling applied. Neurovascularly intact. I also started a 20-gauge IV in the right antecubital fossa under ultrasound guidance, one attempt. Departure - Departure Disposition: 01 Home, Self Care Clinical Impression: Closed anterior dislocation of left shoulder Qualifiers: Encounter type: initial encounter Qualified Code(s): S43.015A - Anterior dislocation of left humerus, initial encounter Condition: Good Instructions: ED Dislocation Shoulder Redu Follow-Up: Jah Mercado MD [Primary Care Provider] - Within 1 week Comments: You can wear the sling for the next 2 to 3 days. Return if you worsen. Follow- up with your doctor for further care. Discharge Date/Time: 02/24/19 18:17
--- NOTE | 2019-02-24 17:52 | XRAY Report ---
Reason: post reduction Procedure Date: 02/24/2019 Accession Number: [id number] / [id number] Procedure: XR - Shoulder 2 View LT CPT Code: FULL RESULT: EXAM: LEFT SHOULDER RADIOGRAPHY EXAM DATE: 02/24/2019 05:10 PM. CLINICAL HISTORY: Post reduction. COMPARISON: SHOULDER 3 VIEW LT 02/24/2019 3:53 PM SHOULDER 2 VIEW LT 01/26/2019 6:09 PM. TECHNIQUE: 2 views. FINDINGS IMPRESSION: Status post reduction of dislocated left shoulder arthroplasty. Alignment is within normal limits. RADIA
[2019-02-24 18:19] VITALS: BP 138/60
== END 2019-02-24 18:17 | disposition home or self-care (01) ==
LOC: ED 15:25
DX: T84.028A Dislocation of other internal joint prosthesis, initial encounter (principal); Z96.612 Presence of left artificial shoulder joint; Y83.8 Other surgical procedures as the cause of abnormal reaction of the patient, or of later complication, without mention of misadventure at the time of the procedure; Z96.611 Presence of right artificial shoulder joint; M32.9 Systemic lupus erythematosus, unspecified; Z79.82 Long term (current) use of aspirin
CPT/HCPCS: 23650; 94770; 99156; 99283; 99284

== ENCOUNTER 2019-03-05 17:12 | Outpatient (CLI) | payer MEDICARE, OTHER ==
--- NOTE | 2019-03-07 11:16 | Ultrasound Report ---
Reason: NEOPLASM OF NECK Procedure Date: 03/05/2019 Accession Number: [id number] / [id number] Procedure: US - Head or Neck Soft Tissue CPT Code: FULL RESULT: EXAM: NECK ULTRASOUND EXAM DATE: 03/05/2019 05:47 PM. CLINICAL HISTORY: Neoplasm of neck. COMPARISON: None. TECHNIQUE: Real-time sonographic imaging was performed by the forest fire prevention manager utilizing color-flow. Multiple site safety representative static images were saved for review. FINDINGS: The right preauricular region posterior to the angle of the mandible was focally examined, as corresponding to a firm mass by the right jaw which the patient indicates has been present for 3 months. The examination is somewhat limited by location of the mass and by pain tolerance and limited mobility due to history of multiple spinal surgeries. A hypoechoic heterogeneous ill-defined 1.5 x 0.6 x 1.3 cm nodule is seen with peripheral shadowing further limiting evaluation. A large vessel is identified nearby by color Doppler. IMPRESSION: Possibly calcified nodule adjacent to vessels, additional characterization by CT of the neck with contrast is recommended. RADIA
== END 2019-03-05 17:13 | disposition home or self-care (01) ==
LOC: DI 17:12
PROVIDERS: ATTEND Internal Medicine
DX: D49.89 Neoplasm of unspecified behavior of other specified sites (principal)
CPT/HCPCS: 76536

== ENCOUNTER 2019-06-04 15:28 | Outpatient (CLI) | payer MEDICARE, OTHER ==
--- NOTE | 2019-06-05 10:16 | Mammography Report ---
Reason: SCREENING Procedure Date: 06/04/2019 Accession Number: [id number] / [id number] Procedure: RENZO - Screening Mammo Dig Bilat CPT Code: FULL RESULT: EXAM: Screening Mammo Dig Bilat DATE: 06/04/2019 4:18 PM CLINICAL HISTORY: Routine screening TECHNIQUE: (B) - Bilateral CC and MLO views were obtained. COMPARISON: 03/08/2017, 07/27/2016, 07/20/2016, 10/16/2013, 04/23/2010 PARENCHYMAL PATTERN: (D) - The breasts demonstrate heterogeneously dense fibroglandular parenchyma bilaterally. FINDINGS: No significant interval change. There are no suspicious masses, calcifications, or areas of distortion. Slight increase in benign cystic rotatory type calcifications bilaterally. Stable posterior medial right biopsy clip. IMPRESSION: Negative examination. BI-RADS category 1. RECOMMENDATION: (ANNUAL) - Recommend routine annual screening mammography. BI-RADS CATEGORY: (1) - Negative. STANDARD QUALIFYING STATEMENTS: 1. This examination was not reviewed with the aid of Computer-Aided Detection (CAD). 2. A negative or benign imaging report should not preclude biopsy if clinically suspicious findings are present. 3. Dense breasts may obscure an underlying neoplasm. 4. This examination was reviewed without the aid of 3D breast imaging (tomosynthesis).
== END 2019-06-04 15:29 | disposition home or self-care (01) ==
LOC: DI 15:28
PROVIDERS: ATTEND Internal Medicine
DX: Z12.31 Encounter for screening mammogram for malignant neoplasm of breast (principal)
CPT/HCPCS: 77067

== ENCOUNTER 2019-06-04 15:39 | Outpatient (CLI) | payer MEDICARE, OTHER ==
--- NOTE | 2019-06-05 08:30 | XRAY Report ---
Reason: PAIN IN L ANKLE AND CALCANEUS Procedure Date: 06/04/2019 Accession Number: [id number] / [id number] Procedure: XR - Ankle 3 View LT CPT Code: FULL RESULT: EXAM: LEFT ANKLE RADIOGRAPHY EXAM DATE: 06/04/2019 04:16 PM. CLINICAL HISTORY: Pain in left ankle and calcaneus. COMPARISON: ANKLE 3 VIEW LT 12/02/2017 4:44 PM. TECHNIQUE: 3 views. FINDINGS: Bones: Generalized bony demineralization, similar to previous. Minimal osteophytic spurring at the plantar calcaneus. 7 mm osteophytic spurring at the dorsum of the calcaneus. Joints: Mild symmetric narrowing of the ankle mortise. No subluxation. Subtalar articulation appears stable and within normal limits. Soft Tissues: No subcutaneous radiopaque foreign bodies. Generalized soft tissue prominence. IMPRESSION: Moderate degenerative changes and generalized bony demineralization at the ankle. RADIA
--- NOTE | 2019-06-05 08:31 | XRAY Report ---
Reason: PAIN IN L ANKLE AND CALCANEUS Procedure Date: 06/04/2019 Accession Number: [id number] / [id number] Procedure: XR - Foot 3 View LT CPT Code: FULL RESULT: EXAM: LEFT FOOT RADIOGRAPHY EXAM DATE: 06/04/2019 04:16 PM. CLINICAL HISTORY: Pain in left ankle and calcaneus. COMPARISON: TOE(S) LT 04/04/2018. TECHNIQUE: 3 views. FINDINGS: Bones: Generalized bony demineralization. No fracture detected. Joints: Mild metatarsus adductus and hallux valgus. Mild diffuse joint space narrowing. No dystrophic changes of the articulations of the midfoot. Soft Tissues: No subcutaneous radiopaque foreign bodies. IMPRESSION: Generalized bony demineralization. Mild degenerative changes. RADIA
== END 2019-06-04 15:40 | disposition home or self-care (01) ==
LOC: DI 15:39
PROVIDERS: ATTEND Podiatrist
DX: M19.072 Primary osteoarthritis, left ankle and foot (principal); M81.0 Age-related osteoporosis without current pathological fracture

== ENCOUNTER 2019-06-09 16:49 | Outpatient (CLI) | payer MEDICARE, OTHER ==
[2019-06-09 17:45] LABS: ALBUMIN 4.4 g/dL (3.2-5.5); ALBUMIN/GLOBULIN RATIO 1.9 (1.0-2.2); BILIRUBIN,TOTAL 0.7 mg/dL (0.2-1.0); CALCIUM 9.9 mg/dL (8.5-10.3); CREATININE 0.7 mg/dL (0.4-1.0); TOTAL PROTEIN 6.7 g/dL (6.7-8.2)
== END 2019-06-09 16:50 | disposition home or self-care (01) ==
LOC: LAB 16:49
PROVIDERS: ATTEND Internal Medicine Gastroenterology
DX: M32.10 Systemic lupus erythematosus, organ or system involvement unspecified (principal); I49.3 Ventricular premature depolarization; K62.5 Hemorrhage of anus and rectum
CPT/HCPCS: 80053

== ENCOUNTER 2019-06-11 09:51 | Day surgery (SDC) | payer MEDICARE, OTHER ==
[2019-06-11] MEDS ORDERED: PROPOFOL 200 MG/20 ML VIAL IVP ONE (09:52)
[2019-06-11] MEDS ORDERED: LACTATED RINGERS 1,000 ML IV ONE (10:18)
--- NOTE | 2019-06-11 12:02 | ANESTHESIA ---
Pre-Anesthesia VS, & Labs - Diagnosis Rectal bleeding - Procedure colonoscopy Vital Signs: Temp Pulse Resp BP Pulse Ox 36.2 C L 79 16 106/61 96 06/11/19 10:38 06/11/19 10:38 06/11/19 10:38 06/11/19 10:38 06/11/19 10:38 Height 5 ft 4 in Weight (kg) 78.02 kg Body Mass Index 29.2 - NPO >8 hours - Is Patient ?: No Home Medications and Allergies Home Medications: Ambulatory Orders Trimethoprim 100 mg PO DAILY 06/08/19 Torsemide 20 mg PO PRN PRN 06/11/19 Atorvastatin Calcium [Lipitor] 20 mg PO QPM 05/31/13 Mycophenolate Mofetil [Cellcept] 1,000 mg PO BID 05/31/13 Pantoprazole Sodium 40 mg PO BID 05/31/13 Potassium Chloride [K-Dur] 10 meq PO BID 05/31/13 Cholecalciferol (Vitamin D3) [Vitamin D3] 2,000 unit PO DAILY 08/08/15 Cyanocobalamin (Vitamin B-12) [Vitamin B-12] 1,000 mcg PO DAILY 08/08/15 Dronedarone HCl [Multaq] 400 mg PO BIDWM 08/08/15 Vitamin B Complex [B Complex] 1 each PO DAILY 08/08/15 Aspirin [Aspirin EC] 162 mg PO DAILY 10/10/16 Duloxetine HCl [Cymbalta] 60 mg PO DAILY 10/10/16 Ferrous Sulfate 325 mg PO DAILY 10/10/16 Multivitamin [Theragran] 1 tab PO DAILY 10/10/16 Valacyclovir HCl [Valacyclovir] 500 mg PO DAILY 10/10/16 predniSONE [Prednisone] 5 mg PO DAILY 10/10/16 Ascorbic Acid [Vitamin C] 1,000 mg PO DAILY 03/02/17 Hydromorphone HCl/0.9% NaCl/Pf [Hydromorphone 20 mg/100 ml-Ns] 3.467 mg [id number] DAILY 03/02/17 Lactobacillus Acidophilus [Probiotic Acidophilus] 1 tab DAILY 03/02/17 Calcium Carbonate/Vitamin D3 [Calcium 500-Vit D3 200 Tablet] 1 tab PO BID 06/14/18 Ibandronate Sodium 150 mg PO Q28D 06/14/18 Torsemide 40 mg PO PRN PRN 06/14/18 Trimethoprim 100 mg PO DAILY 06/08/19 Torsemide 20 mg PO PRN PRN 06/11/19 Allergies/Adverse Reactions: Allergies Allergy/AdvReac Type Severity Reaction Status Date / Time iodine Allergy Rash Verified 02/24/19 15:30 NSAIDS (Non-Steroidal Allergy abd pain Verified 02/24/19 15:30 Anti-Inflamma pregabalin [From Lyrica] Allergy muscle Verified 02/24/19 15:30 spasms zolpidem tartrate * AdvReac Intermediate Hallucinati Verified 02/24/19 15:30 [From Ambien] ons amitriptyline AdvReac Hallucinati Verified 02/24/19 15:30 ons fentanyl AdvReac Hallucinati Verified 02/24/19 15:30 ons gabapentin AdvReac Hallucinati Verified 02/24/19 15:30 ons artichokes Allergy Unknown Uncoded 02/24/19 15:30 cantelope Allergy Unknown Uncoded 02/24/19 15:30 shellfish Allergy Unknown Uncoded 02/24/19 15:30 Anes History & Medical History - Anesthetic History Anesthesia Complications: reports: No previous complications - Medical History Cardiovascular: reports: Hypertension, Angina, Other (history of heart failure/pericarditis) Pulmonary: reports: Pneumonia, Shortness of breath, Sleep apnea, CPAP use, Other (intersititial lung disease) Gastrointestinal: reports: Chronic diarrhea, Chronic constipation Urinary: reports: Kidney stones Neuro: reports: TIA Musculoskeletal: reports: Osteoarthritis, Scoliosis, Chronic back pain (intrathecal pain pump with dilaudid) Endocrine/Autoimmune: reports: None, Other (mixed autoimmune disease) Blood Disorders: reports: Anemia Skin: reports: Other Smoking Status: Former smoker (quit 1975) Psychosocial: reports: No issues indicated - Surgical History General: Cholecystectomy, Colonoscopy Eyes Ears Nose Throat (EENT): Cataracts, Tonsil/Adenoidectomy Cardiothoracic: Other Gynecologic: Hysterectomy Orthopedic: Shoulder arthroplasty, Spine surgery, Other Dermatologic: Other Results - EKG Results EKG Comparison: Reviewed EKG Exam General: Alert, Oriented x3, Cooperative, No acute distress Dental: WNL Mouth Openin Fingerbreadth Neck Mobility: Normal Mallampati classification: II Thyromental Distance: greater than 6 cm Respiratory: Lungs clear, Normal breath sounds, No respiratory distress, No accessory muscle use Cardiovascular: Regular rate, Normal S1, Normal S2, No murmurs Mental/Cognitive Status: Alert/Oriented X3, Normal for patient Plan Anesthesia Type: MAC Consent for Procedure(s) Verified and Reviewed: Yes Code Status: Attempt Resuscitation ASA classification: 3-Severe systemic disease Is this case an emergency?: No
[2019-06-11] MEDS ORDERED: oxyCODONE 5 MG TABLET ONE (13:57)
[2019-06-11 14:32] VITALS: BP 112/63
== END 2019-06-11 09:52 | disposition home or self-care (01) ==
LOC: SDS 09:51
PROVIDERS: ATTEND Internal Medicine Gastroenterology
PROC: 0DJD8ZZ Inspection of Lower Intestinal Tract, Via Natural or Artificial Opening Endoscopic (ICD-10-PCS; principal; 2019-06-11 09:00)
DX: K62.5 Hemorrhage of anus and rectum (principal); K64.8 Other hemorrhoids; K57.30 Diverticulosis of large intestine without perforation or abscess without bleeding; G47.33 Obstructive sleep apnea (adult) (pediatric); I11.0 Hypertensive heart disease with heart failure; K21.9 Gastro-esophageal reflux disease without esophagitis; I50.9 Heart failure, unspecified; I25.119 Atherosclerotic heart disease of native coronary artery with unspecified angina pectoris; Z87.891 Personal history of nicotine dependence; M32.10 Systemic lupus erythematosus, organ or system involvement unspecified; I49.3 Ventricular premature depolarization
CPT/HCPCS: 45378; A9270; J7120

== ENCOUNTER 2019-08-22 16:12 | Emergency (ER) | payer MEDICARE, OTHER ==
--- NOTE | 2019-08-22 18:20 | Ultrasound Report ---
Reason: leg swelling Procedure Date: 08/22/2019 Accession Number: [id number] / [id number] Procedure: US - Duplex Ext Veins Left CPT Code: Final Report FULL RESULT: EXAM: LEFT LOWER EXTREMITY VENOUS ULTRASOUND EXAM DATE: 08/22/2019 05:29 PM. CLINICAL HISTORY: Left leg swelling. COMPARISON: DUPLEX EXT VEINS LEFT 10/14/2015 2:34 PM. TECHNIQUE: Real-time sonographic vascular imaging was performed by the process engineering technician through the lower extremity utilizing both color-flow and Doppler spectral analysis. Multiple service liaison representative static images were saved for review. FINDINGS: Common Femoral Vein (CFV): Normal. CFV-GSV Junction: Normal. Profunda Femoral Vein (PFV): Normal. Femoral Vein (FV) Prox: Normal. Femoral Vein (FV) Mid: Normal. Femoral Vein (FV) Dist: Normal. Popliteal Vein: Normal. Posterior Tibial Veins: Limited visualization. Peroneal Veins: Limited visualization. Other: Left calf veins not well seen due to swelling/edema. There appears to be a large knee joint effusion containing some scattered internal echoes, measures 7.7 x 4.7 x 1.5 cm. Calf edema. IMPRESSION: 1. No evidence for deep venous thrombosis. Limited visualization of the deep calf veins. Calf edema. 2. There appears to be a large knee joint effusion containing some scattered internal echoes, measures 7.7 x 4.7 x 1.5 cm. RADIA
[2019-08-22] MEDS ORDERED: CEPHALEXIN 250 MG Prepack 8 CAP BOTTLE PO STA (18:23)
--- NOTE | 2019-08-22 18:26 | ED Physician Documentation ---
PD HPI LOWER EXT INJURY - Stated complaint Stated Complaint: LT LEG SWELLING/PX - Chief complaint Chief Complaint: Ext Problem - History obtained from History obtained from: Patient - History of Present Illness PD HPI LOW EXT INJURY LOCATION: Left (without injury slow increasing swelling/redness left leg from below the knee to ankle. No fevers/chills.) Review of Systems Constitutional: denies: Fever, Chills Cardiac: denies: Chest pain / pressure, Palpitations Respiratory: denies: Dyspnea, Cough PD PAST MEDICAL HISTORY - Past Medical History Cardiovascular: Hypertension, Angina, Other (history of heart failure/pericarditis) Respiratory: Pneumonia, Shortness of breath, Sleep apnea, CPAP use, Other (intersititial lung disease) Neuro: TIA Endocrine/Autoimmune: None, Other (mixed autoimmune disease) GI: Chronic diarrhea, Chronic constipation : Kidney stones HEENT: Chronic vision loss Psych: None Musculoskeletal: Osteoarthritis, Scoliosis, Chronic back pain (intrathecal pain pump with dilaudid) Derm: Other - Past Surgical History Past Surgical History: Yes General: Cholecystectomy, Colonoscopy Ortho: Shoulder arthroplasty, Spine surgery, 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 Cardiovascular: Other HEENT: Cataracts, Tonsil/Adenoidectomy Derm: Other - Present Medications Home Medications: Ambulatory Orders Medication Instructions Recorded Confirmed Atorvastatin Calcium [Lipitor] 20 mg PO QPM 05/31/13 06/11/19 Mycophenolate Mofetil [Cellcept] 1,000 mg PO BID 05/31/13 06/11/19 Pantoprazole Sodium 40 mg PO BID 05/31/13 06/11/19 Potassium Chloride [K-Dur] 10 meq PO BID 05/31/13 06/11/19 Cholecalciferol (Vitamin D3) 2,000 unit PO DAILY 08/08/15 06/11/19 [Vitamin D3] Cyanocobalamin (Vitamin B-12) 1,000 mcg PO DAILY 08/08/15 06/11/19 [Vitamin B-12] Dronedarone HCl [Multaq] 400 mg PO BIDWM 08/08/15 06/11/19 Vitamin B Complex [B Complex] 1 each PO DAILY 08/08/15 06/11/19 Aspirin [Aspirin EC] 162 mg PO DAILY 10/10/16 06/11/19 Duloxetine HCl [Cymbalta] 60 mg PO DAILY 10/10/16 06/11/19 Ferrous Sulfate 325 mg PO DAILY 10/10/16 06/11/19 Multivitamin [Theragran] 1 tab PO DAILY 10/10/16 06/11/19 Valacyclovir HCl [Valacyclovir] 500 mg PO DAILY 10/10/16 06/11/19 predniSONE [Prednisone] 5 mg PO DAILY 10/10/16 06/11/19 Ascorbic Acid [Vitamin C] 1,000 mg PO DAILY 03/02/17 06/11/19 Hydromorphone HCl/0.9% NaCl/Pf 3.467 mg [id number] DAILY 03/02/17 06/11/19 [Hydromorphone 20 mg/100 ml-Ns] Lactobacillus Acidophilus 1 tab DAILY 03/02/17 06/11/19 [Probiotic Acidophilus] Calcium Carbonate/Vitamin D3 1 tab PO BID 06/14/18 06/11/19 [Calcium 500-Vit D3 200 Tablet] Ibandronate Sodium 150 mg PO Q28D 06/14/18 06/11/19 Torsemide 40 mg PO PRN PRN 06/14/18 06/11/19 carvediloL [Coreg] 3.125 mg PO BID #60 tablet 06/17/18 06/11/19 Trimethoprim 100 mg PO DAILY 06/08/19 06/11/19 Torsemide 20 mg PO PRN PRN 06/11/19 06/11/19 Cephalexin [Keflex] 500 mg PO Q6H #28 capsule 08/22/19 - Allergies Allergies/Adverse Reactions: Allergies Allergy/AdvReac Type Severity Reaction Status Date / Time iodine Allergy Rash Verified 08/22/19 16:24 NSAIDS (Non-Steroidal Allergy abd pain Verified 08/22/19 16:24 Anti-Inflamma pregabalin [From Lyrica] Allergy muscle Verified 08/22/19 16:24 spasms zolpidem tartrate * AdvReac Intermediate Hallucinati Verified 08/22/19 16:24 [From Ambien] ons amitriptyline AdvReac Hallucinati Verified 08/22/19 16:24 ons fentanyl AdvReac Hallucinati Verified 08/22/19 16:24 ons gabapentin AdvReac Hallucinati Verified 08/22/19 16:24 ons artichokes Allergy Unknown Uncoded 02/24/19 15:30 cantelope Allergy Unknown Uncoded 02/24/19 15:30 shellfish Allergy Unknown Uncoded 02/24/19 15:30 - Social History Does the pt smoke?: No Smoking Status: Former smoker (quit 1975) Does the pt drink ETOH?: No Does the pt have substance abuse?: No - Immunizations Immunizations are current?: Yes - POLST Patient has POLST: No PD ED PE NORMAL - Vitals Vital signs reviewed: Yes - General General: Alert and oriented X 3, No acute distress - Extremities Extremities: Other (cellulitis from just above the ankle to mid calf, good ROM) - Neuro Neuro: Alert and oriented X 3, Normal speech Results - Vitals Vitals: Vital Signs - 24 hr 08/22/19 08/22/19 16:16 18:36 Temperature 36.2 C L 36.5 C Heart Rate 68 66 Respiratory 20 16 Rate Blood Pressure 117/38 L 118/50 L O2 Saturation 93 94 Oxygen O2 Source Room air - Rads (name of study) LLE sono Radiology: Final report received (no DVT, Knee effusion (not clinicall relevant to complaint, pain is mid calf down.) PD MEDICAL DECISION MAKING - ED course ED course: 73-year-old woman presents with swelling of the calf which clinically looks like cellulitis. A DVT sono was negative, she does have an effusion of that knee but that knee is a known problem for her and she actually had a total knee replacement scheduled next week at [facility]. I advised her to talk with her surgeon tomorrow because the cellulitis may have to delay that procedure. Departure - Departure Disposition: 01 Home, Self Care Clinical Impression: Cellulitis Qualifiers: Site of cellulitis: extremity Site of cellulitis of extremity: lower extremity Laterality: left Qualified Code(s): L03.116 - Cellulitis of left lower limb Condition: Good Record reviewed to determine appropriate education?: Yes Instructions: Cellulitis Dc Prescriptions: Cephalexin [Keflex] 500 mg PO Q6H #28 capsule Comments: You should start improving in 24 to 48 hours, return anytime if worse, or if you develop fevers or chills. Given that you have a planned knee replacement next week, I suspect your surgeon will want to delay this, talk to them within the next few days. Discharge Date/Time: 08/22/19 18:36
[2019-08-22 18:38] VITALS: BP 118/50
== END 2019-08-22 18:36 | disposition home or self-care (01) ==
LOC: ED 16:12
DX: L03.116 Cellulitis of left lower limb (principal); M25.462 Effusion, left knee; I10 Essential (primary) hypertension; Z79.82 Long term (current) use of aspirin; Z87.891 Personal history of nicotine dependence
CPT/HCPCS: 99283; 99284

== ENCOUNTER 2019-10-01 16:42 | Outpatient (CLI) | payer MEDICARE, OTHER ==
--- NOTE | 2019-10-03 04:00 | Ultrasound Report ---
Reason: LEG EDEMA LT Procedure Date: 10/01/2019 Accession Number: [id number] / [id number] Procedure: US - Duplex Ext Veins Left CPT Code: Final Report FULL RESULT: EXAM: LEFT LOWER EXTREMITY VENOUS ULTRASOUND EXAM DATE: 10/01/2019 05:33 PM. CLINICAL HISTORY: LEG EDEMA LT. COMPARISON: DUPLEX EXT VEINS LEFT 08/22/2019 5:29 PM. TECHNIQUE: Real-time sonographic vascular imaging was performed by the residential child care counselor through the lower extremity utilizing both color-flow and Doppler spectral analysis. Multiple c s s representative static images were saved for review. FINDINGS: Common Femoral Vein (CFV): Normal. CFV-GSV Junction: Normal. Profunda Femoral Vein (PFV): Normal. Femoral Vein (FV) Prox: Normal. Femoral Vein (FV) Mid: Normal. Femoral Vein (FV) Dist: Normal. Popliteal Vein: Normal. Posterior Tibial Veins: Not well visualized. Peroneal Veins: Not well visualized. Contralateral Side CFV: Normal. Other: Incidentally noted is a knee effusion. Subcutaneous edema at the level of the calf. IMPRESSION: 1. Limited evaluation of the calf veins due to subcutaneous edema. 2. No evidence of deep vein thrombosis in the visualized veins of the left lower extremity. RADIA
== END 2019-10-01 16:43 | disposition home or self-care (01) ==
LOC: DI 16:42
PROVIDERS: ATTEND Internal Medicine
DX: R60.0 Localized edema (principal)

== ENCOUNTER 2019-10-26 15:37 | Outpatient (CLI) | payer MEDICARE, OTHER ==
--- NOTE | 2019-10-31 09:28 | DEXA Report ---
Reason: POSTMENOPAUSAL Procedure Date: 10/26/2019 Accession Number: [id number] / [id number] Procedure: DEX - Dexa Spine and/or Hip CPT Code: Final Report FULL RESULT: EXAM: Dexa Spine and/or Hip, DEXA Forearm DATE: 10/26/2019 4:16 PM CLINICAL HISTORY: POSTMENOPAUSAL TECHNIQUE: Dual energy x-ray absorptiometry (DXA) was performed on a [employer] System. Regions measured are the left hip. Spine not imaged due to fixation hardware. COMPARISON: 09/14/2017 In accordance with the International Society for Clinical Densitometry (ISCD) guidelines, data from previous exams may be reanalyzed using current recommendations and techniques. This is done to allow a more accurate basis for comparison with the current study. THE DATA FOR THE LEFT HIP IS FOLLOWS: BMD (g/cm/cm) T-SCORE Z-SCORE REGION Neck 0.777 -1.9 -0.4 TOTAL 0.687 -2.5 -1.3 NOTE: The femoral neck or total proximal femur, whichever is lowest, is used for classification. THE DATA FOR THE LEFT FOREARM IS FOLLOWS: BMD (g/cm/cm) T-SCORE Z-SCORE REGION 1/3 0.576 -3.4 -1.3 NOTE: The 33% radius of the nondominant forearm is used for classification. DXA RESULTS SUMMARY: Hip SCAN DATE AGE BMD CHANGE VS CHANGE VS PREVIOUS PREVIOUS % 73.8 0.687 -0.009 -1.3 71.7 0.696 * Denotes significant change at the 95% confidence level. Denotes dissimilar scan types or analysis methods. DXA RESULTS SUMMARY: Forearm SCAN DATE AGE BMD CHANGE VS CHANGE VS PREVIOUS PREVIOUS % 73.8 0.576 0.008 1.4 71.7 0.568 * Denotes significant change at the 95% confidence level. Denotes dissimilar scan types or analysis methods. IMPRESSION: THE WHO CLASSIFICATION BASED ON THE INTERNATIONAL REFERENCE STANDARD IS OSTEOPOROSIS. THE FRACTURE RISK IS HIGH. RECOMMENDATION: Patients with diagnosis of osteoporosis or osteopenia should have regular bone mineral density assessment. For those eligible for Medicare, routine testing is allowed once every 2 years. Testing frequency can be increased for patients who have rapidly progressing disease or for those who are receiving medical therapy to restore bone mass. COMMENT: World Health Organization (WHO) definitions for osteoporosis and osteopenia: NORMAL BMD: T-score at -1.0 or higher, fracture risk is low OSTEOPENIA BMD: T-score between -1.0 and -2.5, fracture risk is increased. OSTEOPOROSIS BMD: T-score at -2.5 or lower, fracture risk is high. National Osteoporosis Foundation recommends: 1. Obtain adequate dietary calcium (at least 1200 mg per day) and vitamin D (400-800 international units per day). 2. Participate, as appropriate, in regular weightbearing and muscle-strengthening exercise. 3. Avoid tobacco use and reduce alcohol and caffeine intake. 4. For more detailed information see the website at www.NOF.org.
--- NOTE | 2019-10-31 09:29 | DEXA Report ---
Reason: Postmenopausal Procedure Date: 10/26/2019 Accession Number: [id number] / [id number] Procedure: DEX - Dexa Forearm CPT Code: Final Report FULL RESULT: EXAM: Dexa Forearm DATE: 10/26/2019 4:00 PM SEE DEXA SPINE/HIP REPORT FROM THE SAME DAY.
== END 2019-10-26 15:38 | disposition home or self-care (01) ==
LOC: DI 15:37
PROVIDERS: ATTEND Internal Medicine
DX: M81.0 Age-related osteoporosis without current pathological fracture (principal)
CPT/HCPCS: 77080; 77081

== ENCOUNTER 2020-03-25 13:49 | Outpatient (CLI) | payer MEDICARE, OTHER ==
[2020-03-25 19:54] LABS: BASOPHILS # (AUTO) 0.1 10^3/uL (0.0-0.1); EOSINOPHILS # (AUTO) 0.2 10^3/uL (0.0-0.7); EOSINOPHILS % (AUTO) 2.2 %; HGB - HEMOGLOBIN 10.8 g/dL (12.0-16.0); LYMPHOCYTES # (AUTO) 1.3 10^3/uL (1.5-3.5); LYMPHOCYTES % (AUTO) 11.6 %; MEAN CORPUSCULAR HEMOGLOBIN 32.4 pg (27.0-31.0); MEAN CORPUSCULAR HGB CONC 30.6 g/dL (32.0-36.0); MEAN PLATELET VOLUME 10.9 fL (7.9-10.8); MONOCYTES # (AUTO) 0.8 10^3/uL (0.0-1.0); NEUTROPHILS # (AUTO) 8.7 10^3/uL (1.5-6.6); NEUTROPHILS % (AUTO) 77.6 %; PLT - PLATELET COUNT 275 10^3/uL (130-450); RED BLOOD COUNT 3.33 10^6/uL (4.20-5.40); RED CELL DISTRIBUTION WIDTH 14.5 % (12.0-15.0); WHITE BLOOD COUNT 11.2 x10^3/uL (4.8-10.8)
[2020-03-25 20:09] LABS: ALBUMIN/GLOBULIN RATIO 1.4 (1.0-2.2); BILIRUBIN,TOTAL 0.6 mg/dL (0.2-1.0); CALCIUM 9.9 mg/dL (8.5-10.3); CREATININE 0.5 mg/dL (0.4-1.0); TOTAL PROTEIN 6.9 g/dL (6.7-8.2)
== END 2020-03-25 13:50 | disposition home or self-care (01) ==
LOC: LAB.S 13:49
PROVIDERS: ATTEND Internal Medicine
DX: R68.89 Other general symptoms and signs (principal); E78.5 Hyperlipidemia, unspecified
CPT/HCPCS: 36415; 80053; 84443; 85025

== ENCOUNTER 2020-04-08 16:33 | Outpatient (CLI) | payer MEDICARE, OTHER ==
--- NOTE | 2020-04-08 17:23 | SLEEP CARE CONSULTATION ---
Information from patient questionnaire entered by Evelia Leonard. I have reviewed and concur with the information entered by Evelia Leonard. This document represents the service I personally performed and the decisions made by me, Kaelyn Lopez ARNP. History of Present Illness Service Date and Time: 04/08/2020 1633 Previous diagnosis: Mild, Obstructive Sleep Apnea-Hypopnea Syndrome AHI: 11.6 Reason for follow up: annual Equipment type: CPAP Equipment obtained from: [facility] (not getting supplies as needed) Mask style: Nasal (Wisp) Backup mask available: No (keep one when gets a replacement mask) Last cushion change: month Prior sleep [facility]: Yes [facility] Type of Sleep Study: Polysomnography HPI additional information: CRYS FARRIS was diagnosed to have mild, AHI 11.6, obstructive sleep apnea- hypopnea syndrome and returned today for CPAP therapy annual follow-up. CPAP Compliance Data - Data Reviewed with Patient Average duration of nightly device use: 6 h 10 min Compliance rate %: 86.7 Current pressure setting (cmH2O): 9-12 Humidity settin Heated hose settin Average residual AHI: 1.2 Average large leak: 1 min 56 sec Subjective Missed days of use due to: reports: other (did not sleep that night) Patient concerns: reports: mask discomfort, nasal congestion (has a lot of sinus issues), dry mouth, nose, throat (dry mouth, dentist/hygenist suggest Xylitol is helping). denies: aerophagia, air blowing in eyes, mask leak noise, condensation in mask/hose, epistaxis, other Observed to snore while using device: No Current pressure setting perceived as: comfortable On therapy, patient: reports: sleeping better, awakening more refreshed, being more awake and alert during the day, more rested overall, other (patient has major pain issues with multiple back surgeries that affect her sleep). denies: drowsiness while driving Current [place] Sleepiness Scale score: 12 Allergies and Home Medications Drug allergies reviewed: Yes (iodine, nsaids) Home medication list reviewed: Yes (albuterol, Spiriva) Review of Systems Review of systems same as previous: Yes (Bilateral total knee replacements) Physical Exam Heart Rate: 75 O2 Saturation: 96 Height: 5 ft 4 in Weight: 178 lb Body Mass Index: 30.5 BMI Classification: Obese Impression and Plan 1. Obstructive Sleep Apnea-Hypopnea Syndrome, mild, with good treatment compliance and good apnea control. On CPAP therapy, the patient has better sleep quality and is more rested overall. She still has trouble sleeping due to long history of multiple back surgeries and chronic pain. Patient has been having difficulty getting her supplies from [email or web address] and needs a new mask before she goes on her month long trip tomorrow. She is also having some issues with her Wisp nasal mask with a chin strap with some dry mouth. She is also having some moisture buildup under the edge of the mask. She would like to try a full face mask because she thinks it would be better. She is using Xylitol as recommended by her dental hygenist with good improvement of her dry mouth symptoms. She also had an error message on her CPAP machine that cleared after she unplugged and plugged her machine in. She states that it is working fine but she is concerned about the error code. We will transfer her DME supplier. We were able to give her a replacement nasal mask from the sleep lab since she is leaving on her trip tomorrow and will probably not be able to get a replacement with a new DME before she leaves. Upon her return, she will get her machine serviced to check for any malfunctions and a mask refitting to try the full face mask. She is to contact us with any further issues about getting supplies or if her pressure feels too high/low. Patient's apnea severity and rationale for treatment to reduce apnea, improve sleep quality and reduce cardiovascular and cerebrovascular events was reviewed. I also reviewed the benefit of consistent device use of CPAP for cardiac disease, arrhythmia, and anxiety. * Continue auto CPAP pressure at 9-12 cmH2O * Transfer DME, mask refitting and service CPAP machine. * Notify me if snoring with mask or feeling that the pressure is too much or too little * Attempt to lose weight * Call this office if any problems using CPAP * Return for follow up in annual, or sooner if concerns arise Visit Type: In Office Time Spent with Patient (minutes): 25 Provider Statement: I spent 100% of the Face to Face Visit with the patient with greater than 50% spent counseling the patient and coordination of care.
== END 2020-04-08 16:34 | disposition home or self-care (01) ==
LOC: SC 16:33
PROVIDERS: ATTEND Nurse Practitioner Family
DX: G47.33 Obstructive sleep apnea (adult) (pediatric) (principal); E66.9 Obesity, unspecified; Z68.30 Body mass index [BMI] 30.0-30.9, adult
CPT/HCPCS: 99213; G0463; 99212

== ENCOUNTER 2020-06-12 22:19 | Outpatient (CLI) | payer MEDICARE, OTHER | END 2020-06-12 22:20 | disposition EMS.NT | LOC: EMS 22:19 | PROVIDERS: ATTEND Surgery | DX: M79.672 Pain in left foot (principal); W18.39XA Other fall on same level, initial encounter; Y92.008 Other place in unspecified non-institutional (private) residence as the place of occurrence of the external cause ==

== ENCOUNTER 2020-06-12 23:03 | Emergency (ER) | payer MEDICARE, OTHER ==
--- NOTE | 2020-06-12 23:15 | ED Physician Documentation ---
PD HPI LOWER EXT INJURY - Stated complaint Stated Complaint: FOOT PX/FALL - History obtained from History obtained from: Patient - History of Present Illness PD HPI LOW EXT INJURY LOCATION: Right (shoulder), Foot (foot) Type of injury: Fall Where injury occurred: Home Timing - onset: How many minutes ago (45) Timing - details: Abrupt onset Pain level now: 6 Improved by: Rest Worsened by: Moving, Palpating Associated symptoms: Swelling. No: Weakness, Numbness Similar symptoms before: Has not had sx before Recently seen: Not recently seen - Additional information Additional information: tripped while walking up two stairs at home causing her to fall. this occurred approximately 45 minutes [employer]. denies LOC, denies head injury. chief complaint is left foot pain. she also c/o right shoulder pain and has developed left posterior lower rib pain while in ED awaiting evaluation. Review of Systems Musculoskeletal: reports: Extremity pain, Joint pain, Extremity swelling (left foot), Pain with weight bearing. denies: Neck pain, Back pain Neurologic: denies: Focal weakness, Numbness, Headache, Head injury PD PAST MEDICAL HISTORY - Past Medical History Cardiovascular: Hypertension, Angina, Other Respiratory: Pneumonia, Shortness of breath, Sleep apnea, CPAP use, Other Neuro: TIA Endocrine/Autoimmune: None, Other GI: Chronic diarrhea, Chronic constipation : Kidney stones HEENT: Chronic vision loss Psych: None Musculoskeletal: Osteoarthritis, Scoliosis, Chronic back pain Derm: Other - Past Surgical History Past Surgical History: Yes General: Cholecystectomy, Colonoscopy Ortho: Shoulder arthroplasty, Spine surgery, 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 /LOGISTICS OFFICER: Hysterectomy Cardiovascular: Other HEENT: Cataracts, Tonsil/Adenoidectomy Derm: Other - Present Medications Home Medications: Ambulatory Orders Medication Instructions Recorded Confirmed Atorvastatin Calcium [Lipitor] 20 mg PO QPM 05/31/13 06/11/19 Mycophenolate Mofetil [Cellcept] 1,000 mg PO BID 05/31/13 06/11/19 Pantoprazole Sodium 40 mg PO BID 05/31/13 06/11/19 Potassium Chloride [K-Dur] 10 meq PO BID 05/31/13 06/11/19 Cholecalciferol (Vitamin D3) 2,000 unit PO DAILY 08/08/15 06/11/19 [Vitamin D3] Cyanocobalamin (Vitamin B-12) 1,000 mcg PO DAILY 08/08/15 06/11/19 [Vitamin B-12] Dronedarone HCl [Multaq] 400 mg PO BIDWM 08/08/15 06/11/19 Vitamin B Complex [B Complex] 1 each PO DAILY 08/08/15 06/11/19 Aspirin [Aspirin EC] 162 mg PO DAILY 10/10/16 06/11/19 Duloxetine HCl [Cymbalta] 60 mg PO DAILY 10/10/16 06/11/19 Ferrous Sulfate 325 mg PO DAILY 10/10/16 06/11/19 Multivitamin [Theragran] 1 tab PO DAILY 10/10/16 06/11/19 Valacyclovir HCl [Valacyclovir] 500 mg PO DAILY 10/10/16 06/11/19 predniSONE [Prednisone] 5 mg PO DAILY 10/10/16 06/11/19 Ascorbic Acid [Vitamin C] 1,000 mg PO DAILY 03/02/17 06/11/19 Hydromorphone HCl/0.9% NaCl/Pf 3.467 mg [id number] DAILY 03/02/17 06/11/19 [Hydromorphone 20 mg/100 ml-Ns] Lactobacillus Acidophilus 1 tab DAILY 03/02/17 06/11/19 [Probiotic Acidophilus] Calcium Carbonate/Vitamin D3 1 tab PO BID 06/14/18 06/11/19 [Calcium 500-Vit D3 200 Tablet] Ibandronate Sodium 150 mg PO Q28D 06/14/18 06/11/19 Torsemide 40 mg PO PRN PRN 06/14/18 06/11/19 carvediloL [Coreg] 3.125 mg PO BID #60 tablet 06/17/18 06/11/19 Trimethoprim 100 mg PO DAILY 06/08/19 06/11/19 Torsemide 20 mg PO PRN PRN 06/11/19 06/11/19 Cephalexin [Keflex] 500 mg PO Q6H #28 capsule 08/22/19 oxyCODONE [Roxicodone] 5 - 10 mg PO Q6H PRN #20 tablet 06/13/20 - Allergies Allergies/Adverse Reactions: Allergies Allergy/AdvReac Type Severity Reaction Status Date / Time iodine Allergy Rash Verified 08/22/19 16:24 NSAIDS (Non-Steroidal Allergy abd pain Verified 08/22/19 16:24 Anti-Inflamma pregabalin [From Lyrica] Allergy muscle Verified 08/22/19 16:24 spasms zolpidem tartrate * AdvReac Intermediate Hallucinati Verified 08/22/19 16:24 [From Kd] ons amitriptyline AdvReac Hallucinati Verified 08/22/19 16:24 ons fentanyl AdvReac Hallucinati Verified 08/22/19 16:24 ons gabapentin AdvReac Hallucinati Verified 08/22/19 16:24 ons artichokes Allergy Unknown Uncoded 02/24/19 15:30 cantelope Allergy Unknown Uncoded 02/24/19 15:30 shellfish Allergy Unknown Uncoded 02/24/19 15:30 - Social History Does the pt smoke?: No Smoking Status: Former smoker Does the pt drink ETOH?: No Does the pt have substance abuse?: No - Immunizations Immunizations are current?: Yes - POLST Patient has POLST: No PD ED PE NORMAL - Vitals Vital signs reviewed: Yes - General General: Alert and oriented X 3, No acute distress, Well developed/nourished - HEENT HEENT: Atraumatic - Neuro Neuro: Alert and oriented X 3, No motor deficit, No sensory deficit PD ED PE EXPANDED - Extremities Extremities: Other (right shoulder pain, lateral and anterior aspects) Feet visual: 1 - swelling, tenderness - Free text exam Free text exam: mild TTP left posterior lower ribs without crepitus or obvious deformity. Results - Vitals Vitals: Vital Signs - 24 hr 06/12/20 06/13/20 06/13/20 23:19 00:05 01:07 Temperature 36.3 C L Heart Rate 79 Respiratory 18 16 16 Rate Blood Pressure 117/48 L O2 Saturation 93 06/13/20 06/13/20 06/13/20 01:28 02:02 02:30 Temperature Heart Rate 75 80 Respiratory 17 17 16 Rate Blood Pressure 130/67 131/65 H O2 Saturation 97 Oxygen O2 Source Room air - Rads (name of study) left foot xrays Radiology: Prelim report reviewed, See rad report right shoulder xrays Radiology: Prelim report reviewed, See rad report left rib xrays Radiology: Prelim report reviewed, See rad report PD MEDICAL DECISION MAKING - ED course Complexity details: reviewed results, re-evaluated patient, considered differential, d/w patient ED course: rib fractures of indeterminate age are inconsistent with location of tenderness (xray abnormalities are anterolateral, whereas her symptoms are distinctly posterior aspect approaching parathoracic area); furthermore, she says she is aware of h/o left rib fractures. the metatarsal fractures are likely acute, given no h/o injury until tonight to the area and correlation with area of TTP Departure - Departure Disposition: 01 Home, Self Care Clinical Impression: Fall, Metatarsal fracture Condition: Good Instructions: ED Fx Foot Follow-Up: Jamie Bill MD [Primary Care Provider] - Romeo Stark MD [Provider Admit Priv/Credential] - Prescriptions: oxyCODONE [Roxicodone] 5 - 10 mg PO Q6H PRN #20 tablet PRN Reason: Pain Comments: Follow up with your orthopedic surgeon within 3-5 days Discharge Date/Time: 06/13/20 02:30
[2020-06-12] MEDS ORDERED: ACETAMINOPHEN 325 MG TABLET PO STA (23:45)
[2020-06-12] MEDS ORDERED: oxyCODONE 5 MG TABLET PO STA (23:45)
[2020-06-13] MEDS ORDERED: oxyCODONE 5 MG TABLET PO STA (01:31)
[2020-06-13 02:49] VITALS: BP 131/65
--- NOTE | 2020-06-13 09:05 | XRAY Report ---
PROCEDURE: Ribs w/PA Chest LT INDICATIONS: fall, pain and tenderness TECHNIQUE: 3 views of the left ribs were acquired, along with a single view chest. COMPARISON: X-ray shoulder 06/12/2020, x-ray chest 12/07/2017 FINDINGS: Surgical changes and devices: Cervical fixation screws as well as bilateral arthroplasties are presen t. Bones and chest wall: Diffuse osteoporosis is present. There are ill-defined, nondisplaced rib irregu larities on the left lateral seventh through 10th anterolateral ribs. No suspicious bony lesions. Ov erlying soft tissues appear unremarkable. Lungs and pleura: No pleural effusions or pneumothorax. Lungs appear clear. Mediastinum: Mediastinal contours appear normal. Heart size is normal. IMPRESSION: Nondisplaced ill-defined left rib irregularities as above, new since 2018. There are poorly character ized secondary to osteopenia. However, given history of recent fall, subacute injury cannot be exclud ed and recommend correlation of point tenderness. Reviewed by: Cathy Orozco MD on 06/13/2020 9:03 AM PST Approved by: Cathy Orozco MD on 06/13/2020 9:03 AM PST Station ID: [id number]
--- NOTE | 2020-06-13 09:09 | XRAY Report ---
PROCEDURE: Shoulder 3 View RT INDICATIONS: fall, pain and tenderness TECHNIQUE: 3 views of the shoulder were acquired. COMPARISON: None. FINDINGS: Bones: No fractures or dislocations. No suspicious bony lesions. Visualized ribs appear intact. R ight shoulder arthroplasty is present. Hardware is intact without evidence of periprosthetic loosenin g or hardware fracture. Severe acromioclavicular degenerative narrowing is present. Partially visuali zed cervical fixation screws are present. Soft tissues: No suspicious soft tissue calcifications. IMPRESSION: No visualized acute fracture or dislocation. However, occult injury cannot be excluded. Recommend short interval imaging follow-up in 7-10 days as clinically indicated for additional evalua tion. Reviewed by: Cathy Orozco MD on 06/13/2020 9:08 AM [facility] Approved by: Cathy Orozco MD on 06/13/2020 9:08 AM [facility] Station ID: [id number]
--- NOTE | 2020-06-13 09:09 | XRAY Report ---
PROCEDURE: Foot 3 View LT INDICATIONS: fall, pain and tenderness TECHNIQUE: 3 views of the foot were acquired. COMPARISON: None FINDINGS: Bones: Diffuse osteopenia is present. There is mild appearance of angulation at the distal second thr ough fourth metatarsals. No suspicious bony lesions. Soft tissues: No tibiotalar joint effusion. Achilles tendon appears normal. IMPRESSION: Second through fourth metatarsal fractures as above. Secondary to severe osteoporosis, chronicity is difficult to determine and subacute fractures cannot be excluded. Recommend correlation of point tend blanco. Reviewed by: Cathy Orozco MD on 06/13/2020 9:07 AM [facility] Approved by: Cathy Orozco MD on 06/13/2020 9:07 AM [facility] Station ID: [id number]
== END 2020-06-13 02:30 | disposition home or self-care (01) ==
LOC: ED 23:03
DX: S92.322A Displaced fracture of second metatarsal bone, left foot, initial encounter for closed fracture (principal); S92.332A Displaced fracture of third metatarsal bone, left foot, initial encounter for closed fracture; S92.342A Displaced fracture of fourth metatarsal bone, left foot, initial encounter for closed fracture; M25.511 Pain in right shoulder; R07.81 Pleurodynia; W01.0XXA Fall on same level from slipping, tripping and stumbling without subsequent striking against object, initial encounter; Y93.01 Activity, walking, marching and hiking; Y92.009 Unspecified place in unspecified non-institutional (private) residence as the place of occurrence of the external cause; M81.0 Age-related osteoporosis without current pathological fracture; Z96.611 Presence of right artificial shoulder joint; I10 Essential (primary) hypertension; Z87.891 Personal history of nicotine dependence; Z79.82 Long term (current) use of aspirin
CPT/HCPCS: 71101; 73030; 73630; 99283; 99284; A9270

== ENCOUNTER 2020-07-22 04:40 | Outpatient (CLI) | payer MEDICARE, OTHER | END 2020-07-22 04:41 | disposition critical access hospital (66) | LOC: EMS 04:40 | PROVIDERS: ATTEND Surgery | DX: R10.30 Lower abdominal pain, unspecified (principal); K59.00 Constipation, unspecified | CPT/HCPCS: A0425; A0429 ==

== ENCOUNTER 2020-07-22 04:52 | Emergency (ER) | payer MEDICARE, OTHER ==
--- NOTE | 2020-07-22 04:51 | ED Physician Documentation ---
PD HPI ABD PAIN - Stated complaint Stated Complaint: ABD PX - History obtained from History obtained from: Patient - History of Present Illness Timing - onset: How many days ago (5-6) Timing - duration: Days Timing - details: Gradual onset Quality: Cramping, Fullness/distended Location: All over / everywhere (predominantly rectal pain and across lower abdomen) Improved by: Other (nothing) Associated symptoms: Constipation. No: Fever, Nausea, Vomiting Recently seen: Not recently seen - Additional information Additional information: c/o constipation; last BM 5-6 days ago. she has urge to defecate but unable to pass stool and increasing rectal pain and cramping pain across lower abdomen. She says she had similar severe constipation several years ago and was able to self-disimpact but this resulted in bleeding for which she was evaluated in this ED, then admitted for inflammation noted on CT which was attributed to the self- disimpaction. She thus did not want to try this at home this time. Review of Systems Constitutional: denies: Fever GI: reports: Abdominal Pain, Abdominal Swelling, Constipation. denies: Nausea, Vomiting, Diarrhea, Hematemesis, Bloody / black stool PD PAST MEDICAL HISTORY - Past Medical History Past Medical History: Yes Cardiovascular: Hypertension, High cholesterol Musculoskeletal: Chronic back pain Other Past Medical History: mixed autoimmune disease - Present Medications Home Medications: Ambulatory Orders Medication Instructions Recorded Confirmed Atorvastatin Calcium [Lipitor] 20 mg PO QPM 05/31/13 06/11/19 Mycophenolate Mofetil [Cellcept] 1,000 mg PO BID 05/31/13 06/11/19 Pantoprazole Sodium 40 mg PO BID 05/31/13 06/11/19 Vitamin B Complex [B Complex] 1 each PO DAILY 08/08/15 06/11/19 Duloxetine HCl [Cymbalta] 60 mg PO DAILY 10/10/16 06/11/19 Multivitamin [Theragran] 1 tab PO DAILY 10/10/16 06/11/19 Valacyclovir HCl [Valacyclovir] 500 mg PO PRN PRN 10/10/16 06/11/19 predniSONE [Prednisone] 5 mg PO DAILY 10/10/16 06/11/19 Lactobacillus Acidophilus 1 tab DAILY 03/02/17 06/11/19 [Probiotic Acidophilus] Ibandronate Sodium 150 mg PO Q28D 06/14/18 06/11/19 carvediloL [Coreg] 3.125 mg PO BID #60 tablet 06/17/18 06/11/19 Trimethoprim 100 mg PO DAILY 06/08/19 06/11/19 - Allergies Allergies/Adverse Reactions: Allergies Allergy/AdvReac Type Severity Reaction Status Date / Time iodine Allergy Rash Verified 07/22/20 05:09 NSAIDS (Non-Steroidal Allergy abd pain Verified 07/22/20 05:09 Anti-Inflamma pregabalin [From Lyrica] Allergy muscle Verified 07/22/20 05:09 spasms zolpidem tartrate * AdvReac Intermediate Hallucinati Verified 07/22/20 05:09 [From Ambien] ons amitriptyline AdvReac Hallucinati Verified 07/22/20 05:09 ons fentanyl AdvReac Hallucinati Verified 07/22/20 05:09 ons gabapentin AdvReac Hallucinati Verified 07/22/20 05:09 ons artichokes Allergy Unknown Uncoded 02/24/19 15:30 cantelope Allergy Unknown Uncoded 02/24/19 15:30 shellfish Allergy Unknown Uncoded 02/24/19 15:30 PD ED PE NORMAL - Vitals Vital signs reviewed: Yes - General General: Alert and oriented X 3, No acute distress, Well developed/nourished - Abdomen Abdomen: Soft, Non tender, Non distended, Other (decreased bowel sounds) - Back Back: No CVA TTP PD ED PE EXPANDED - Rectal Rectal: Normal Tone, Concrete Form Setter present, Other (no stool in rectal vault). No: Mass, Hemorrhoid, Fissure Results - Vitals Vitals: Oxygen O2 Source Room air - Rads (name of study) acute abdomen xrays Radiology: Prelim report reviewed, See rad report PD MEDICAL DECISION MAKING - ED course Complexity details: reviewed results, re-evaluated patient, considered differential, d/w patient ED course: after xrays performed and resulted, I reevaluated patient. She says she had a large BM since I was last in the room (for initial evaluation) and has significant relief of symptoms with this. She wasn't sure if there was still stool waiting to pass and wanted me to still perform the rectal exam (RN and I had setup at bedside for anticipated manual disimpaction). On rectal exam, chaperoned by ED RN Ceci, there was no stool in vault. Patient was reassured by this and was comfortable with discharge home. Departure - Departure Disposition: 01 Home, Self Care Clinical Impression: Constipation Qualifiers: Constipation type: unspecified constipation type Qualified Code(s): K59.00 - Constipation, unspecified Condition: Good Instructions: ED Constipation Follow-Up: Jamie Bill MD [Primary Care Provider] - Discharge Date/Time: 07/22/20 06:53
[2020-07-22 06:55] VITALS: BP 114/74
--- NOTE | 2020-07-22 08:37 | XRAY Report ---
PROCEDURE: Abdomen Acute INDICATIONS: constipated TECHNIQUE: One view chest and two views of the abdomen were acquired. COMPARISON: Rib series dated 06/12/2020 FINDINGS: Surgical changes and devices: Fusion hardware throughout visualized cervical spine, mid to lower thor acic spine and lumbar spine is seen. Patient is status post bilateral shoulder arthroplasty. Electron ic device are noted projecting over the bilateral iliac wings with leads projecting in thoracolumbar region. Chest: Ill-defined airspace opacities are noted in right mid to lower lung zone. Subtle opacity is al so seen at left lung base. Increased interstitial lung markings are noted bilaterally. Trace right pl eural effusion is noted with blunting of right costophrenic angle. Heart size is normal. No pneumotho rax. No left-sided pleural effusion. No pneumoperitoneum. Abdomen: Bowel gas pattern is nonobstructive. There is moderate fecal stasis throughout the colon ex tending to the rectum. No suspicious calcifications. Visualized solid organ contours appear normal. Bones: Healed right proximal femoral fracture is seen. No gross hardware loosening or failure is note d. IMPRESSION: 1. No evidence of bowel obstruction. No gross pneumoperitoneum. Mild constipation. 2. Ill-defined airspace opacities in bilateral lung bases more prominent on the right side concerning for developing infiltrate/atelectasis. Chronic interstitial lung disease with increased interstitial markings bilaterally. No pneumothorax. Trace right pleural effusion. No significant discrepancies from preliminary report. Reviewed by: Dagoberto Barrera MD on 07/22/2020 8:35 AM PST Approved by: Dagoberto Barrera MD on 07/22/2020 8:35 AM PST Station ID: [id number]
== END 2020-07-22 06:53 | disposition home or self-care (01) ==
LOC: ED 04:52
DX: K59.00 Constipation, unspecified (principal); I10 Essential (primary) hypertension
CPT/HCPCS: 99283

== ENCOUNTER 2020-09-28 03:37 | Emergency (ER) | payer MEDICARE, OTHER ==
[2020-09-28] MEDS ORDERED: oxyCODONE 5 MG TABLET PO STA (04:17)
[2020-09-28] MEDS ORDERED: ACETAMINOPHEN 325 MG TABLET PO STA (04:18)
--- NOTE | 2020-09-28 04:23 | ED Physician Documentation ---
History of Present Illness - Stated complaint Stated Complaint: GLF - Chief complaint Chief Complaint: Trauma Hd/Nk - History obtained from History obtained from: Patient - Additonal information Additional information: 74-year-old woman with history of chronic bilateral lower extremity swelling and numbness, recent left foot fracture, on 162 mg aspirin daily, presents with mechanical fall from standing onto her right face and nose, as well as right shoulder and left foot. Patient complains of sudden onset right-sided neck pain that is nonradiating, worse with movement of the head, as well as shoulder joint aching. She also feels like her left big toe is more swollen than usual, though she does have chronic swelling. +epistaxis, now resolved. +conjunctival hemorrhage. no vision changes. Denies other injuries. denies LOC. Review of Systems Ten Systems: 10 systems reviewed and negative Constitutional: denies: Fever, Fatigue Eyes: reports: Other (conjunctival hemorrhage) Skin: denies: Abrasion (s), Laceration (s) Neurologic: reports: Generalized weakness, Numbness (chronic BL LE numbness), Head injury. 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 : Kidney stones HEENT: Chronic vision loss Psych: None Musculoskeletal: Chronic back pain Derm: Other - Past Surgical History Past Surgical History: Yes General: Cholecystectomy, Colonoscopy Ortho: Shoulder arthroplasty, Spine surgery, Other /MACHINE DESIGN CHECKER: Hysterectomy Cardiovascular: Other HEENT: Cataracts, Tonsil/Adenoidectomy Derm: Other - Present Medications Home Medications: Ambulatory Orders Medication Instructions Recorded Confirmed Atorvastatin Calcium [Lipitor] 20 mg PO QPM 05/31/13 09/28/20 Mycophenolate Mofetil [Cellcept] 1,000 mg PO BID 05/31/13 09/28/20 Pantoprazole Sodium 40 mg PO BID 05/31/13 09/28/20 Vitamin B Complex [B Complex] 1 each PO DAILY 08/08/15 09/28/20 Duloxetine HCl [Cymbalta] 60 mg PO DAILY 10/10/16 09/28/20 Multivitamin [Theragran] 1 tab PO DAILY 10/10/16 09/28/20 Valacyclovir HCl [Valacyclovir] 500 mg PO PRN PRN 10/10/16 09/28/20 predniSONE [Prednisone] 5 mg PO DAILY 10/10/16 09/28/20 Lactobacillus Acidophilus 1 tab DAILY 03/02/17 09/28/20 [Probiotic Acidophilus] Ibandronate Sodium 150 mg PO Q28D 06/14/18 09/28/20 carvediloL [Coreg] 3.125 mg PO BID #60 tablet 06/17/18 09/28/20 Trimethoprim 100 mg PO DAILY 06/08/19 09/28/20 Aspirin [Aspirin EC] 162 mg PO DAILY 09/28/20 09/28/20 Dronedarone HCl [Multaq] 400 mg PO DAILY 09/28/20 09/28/20 Isosorbide Mononitrate [Isosorbide 30 mg PO DAILY 09/28/20 09/28/20 Mononitrate ER] Potassium Chloride 10 meq PO DAILY 09/28/20 09/28/20 traZODone [Desyrel] 50 mg pe PO HS PRN 09/28/20 09/28/20 - Allergies Allergies/Adverse Reactions: Allergies Allergy/AdvReac Type Severity Reaction Status Date / Time iodine Allergy Rash Verified 09/28/20 04:03 NSAIDS (Non-Steroidal Allergy abd pain Verified 09/28/20 04:03 Anti-Inflamma pregabalin [From Lyrica] Allergy muscle Verified 09/28/20 04:03 spasms zolpidem tartrate * AdvReac Intermediate Hallucinati Verified 09/28/20 04:03 [From Kd] ons amitriptyline AdvReac Hallucinati Verified 09/28/20 04:04 ons fentanyl AdvReac Hallucinati Verified 09/28/20 04:03 ons gabapentin AdvReac Hallucinati Verified 09/28/20 04:03 ons artichokes Allergy Unknown Uncoded 09/28/20 04:03 cantelope Allergy Unknown Uncoded 09/28/20 04:03 shellfish Allergy Unknown Uncoded 09/28/20 04:03 - Social History Does the pt smoke?: No Smoking Status: Never smoker Does the pt drink ETOH?: No Does the pt have substance abuse?: No - Immunizations Immunizations are current?: Yes - POLST Patient has POLST: No PD ED PE NORMAL - Vitals Vital signs reviewed: Yes - General General: Alert and oriented X 3, No acute distress, Well developed/nourished - HEENT HEENT: Atraumatic, PERRL, EOMI, Moist mucous membranes, Pharynx benign - Neck Neck: No bony TTP, Other (R lateral neck ttp) - Cardiac Cardiac: RRR - Respiratory Respiratory: No respiratory distress, Clear bilaterally - Abdomen Abdomen: Non tender, Non distended, Other (pelvis stable) - Female Female : Deferred - Rectal Rectal: Deferred - Back Back: No spinal TTP - Derm Derm: Normal color, Other (erythema and swelling to R zygomatic arch. arch ttp) - Extremities Extremities: No deformity, Other (L first toe ttp. BL LE 1+ pitting edema. R shoulder tender with rom. ) - Neuro Neuro: Alert and oriented X 3, director economic 2-12 intact, No motor deficit, No sensory deficit, Normal speech - Psych Psych: Normal mood, Normal affect Results - Vitals Vitals: Vital Signs - 24 hr 09/28/20 09/28/20 09/28/20 03:55 04:01 06:01 Temperature 37.0 C 36.8 C Heart Rate 85 88 83 Respiratory 16 20 16 Rate Blood Pressure 136/68 H 114/47 L 131/65 H O2 Saturation 99 97 97 Oxygen O2 Source Room air PD MEDICAL DECISION MAKING - ED course ED course: 74-year-old woman presents status post mechanical fall. She is requesting pain medicine for her ache in her neck . Will obtain x-rays and CT and reevaluate. Pain improved with oral tylenol/oxycodone. patient states that she actually has chronic pain in the R shoulder, L toe and had a R shoulder replacement. will f/u with orthopedics. declining splint for the toe. Departure - Departure Disposition: 01 Home, Self Care Clinical Impression: Conjunctival hemorrhage of right eye, Swelling of right side of face, Toe pain, left, Shoulder pain, right Condition: Good Instructions: ED RICE, Falls Risks Prevent Follow-Up: Trent Bustamante MD [Provider Admit Priv/Credential] - Comments: You were seen in the emergency department for a fall from standing. Your x-rays and CT did not show any new injuries. Follow-up with orthopedics in 1 week for repeat x-rays. Return to the emergency department for any new or worsening symptoms or other concerns.
[2020-09-28 06:10] VITALS: BP 131/65
--- NOTE | 2020-09-28 07:21 | CT Report ---
PROCEDURE: MAXILLOFACIAL WO INDICATIONS: Facial trauma TECHNIQUE: Noncontrast 1.5 mm thick axial images acquired from the mandible through the frontal sinuses, with co pete and sagittal reformatting. For radiation dose reduction, the following was used: automated ex posure control, adjustment of mA and/or kV according to patient size. COMPARISON: Correlation is made with the prior sinus CT for 2914. Correlation is also made with the accompanying head CT and cervical spine CT, 09/28/2020. FINDINGS: Image quality: Excellent. Bones and teeth: Orbital pina are intact. Sinus pina show no fracture or deformity. Chronic mild to moderate rightward nasal septal deviation can be seen. Nasal bones and septum are intact. Visual ized portions of the mandible demonstrate no fractures or subluxation. Zygomatic arches are intact. Pterygoid plates are intact. Visualized portions of the skull base and auditory canals are intact. Sinuses: Minimal to mild mucosal thickening is seen within the maxillary sinuses. The maxillary sinus pina appear thickened. Mastoid air cells are aerated. Soft tissues: No edema, masses, or fluid collections. No enlarged lymph nodes. No soft tissue lace rations or debris. Vascular: Visualized vascular structures appear normal in the absence of contrast. Bony vascular fo ramina and canals are intact. IMPRESSION: Negative for acute fracture. Note: No significant discrepancy from the preliminary report. Reviewed by: Cole Rolle MD on 09/28/2020 6:20 AM [facility] Approved by: Cole Rolle MD on 09/28/2020 6:20 AM [facility] Station ID: [id number]
--- NOTE | 2020-09-28 07:23 | CT Report ---
PROCEDURE: HEAD WO INDICATIONS: Head trauma, mod-severe TECHNIQUE: Noncontrast 4.5 mm thick angled axial sections acquired from the foramen magnum to the vertex. For r adiation dose reduction, the following was used: automated exposure control, adjustment of mA and/or kV according to patient size. COMPARISON: 06/14/2018, 03/02/2017. Correlation is also made with the accompanying maxillofacial CT an d cervical spine CT, 09/28/2020. FINDINGS: Image quality: Motion artifact is noted. CSF spaces: Basal cisterns are patent. No extra-axial fluid collections. Ventricles are normal in size and shape. Brain: No midline shift. No intracranial masses or hemorrhage. Jalloh-white matter interface is norm al. Brain parenchymal volume loss is seen. Chronic small vessel ischemic changes can be seen. Skull and face: Calvarium and visualized facial bones are intact, without suspicious lesions. Sinuses: Visualized sinuses and mastoids are clear. IMPRESSION: Unremarkable intracranial study for age, without acute intracranial hemorrhage or other significant abnormality. No displaced calvarial fracture can be seen. Note: No significant discrepancy from the preliminary report. Reviewed by: Cole Rolle MD on 09/28/2020 6:21 AM [facility] Approved by: Cole Rolel MD on 09/28/2020 6:21 AM [facility] Station ID: [id number]
--- NOTE | 2020-09-28 07:27 | CT Report ---
PROCEDURE: CERVICAL SPINE WO INDICATIONS: Neck trauma, midline tenderness TECHNIQUE: Noncontrast 3 mm thick sections acquired from the skull base to the T4 level. Sagittal and coronal r eformats were then constructed. For radiation dose reduction, the following was used: automated exp osure control, adjustment of mA and/or kV according to patient size. COMPARISON: Cervical spine CT examinations, 06/14/2018, 01/17/2017. Correlation is also made with the accompanying head CT and maxillofacial CT, 09/28/2020. FINDINGS: Image quality: Excellent. Bones: No fractures or dislocations. Visualized superior ribs are intact. Extensive postoperative changes are seen, with posterior pedicle screws that span from C3 through T2. The screws are well placed. Vertical fixation rods are seen. There is been removal of extensive port ions of the posterior elements. Bone grafting material is seen. Disc spacers are seen within the lowe r cervical spine. Bony fusion can be seen at the C3-C4 level. Minimal to mild C2-C3 anterolisthesis is seen, as before. The extra convex cervicothoracic scoliotic curvature is seen. Soft tissues: Prevertebral soft tissues are normal in thickness. No paravertebral hematomas. No ap ical pneumothoraces. IMPRESSION: No acute fracture can be seen. Extensive postoperative changes. Note: No significant discrepancy from the preliminary report. Reviewed by: Cole Rolle MD on 09/28/2020 6:26 AM [facility] Approved by: Cole Rolle MD on 09/28/2020 6:26 AM [facility] Station ID: [id number]
--- NOTE | 2020-09-28 07:33 | XRAY Report ---
PROCEDURE: Pelvis 1 View INDICATIONS: fall from standing TECHNIQUE: One view of the pelvis, with additional images of the distal femur were acquired. COMPARISON: None. FINDINGS: Bones: No fractures or dislocations. No suspicious bony lesions. Postoperative changes are seen, involving the lumbosacral junction as well as throughout the right fe mur. Right knee arthroplasty hardware is also seen. No findings of hardware failure or hardware loose carito can be seen. Moderate to prominent degenerative changes can be seen. Soft tissues: Visualized bowel gas pattern is normal. No suspicious soft tissue calcifications. There is a right-sided pain pump and a left-sided stimulator seen. IMPRESSION: No acute fractures are seen. Intact appearing hardware. Note: No significant discrepancy from the preliminary report. Reviewed by: Cole Rolle MD on 09/28/2020 6:32 AM [facility] Approved by: Cole Rolle MD on 09/28/2020 6:32 AM [facility] Station ID: [id number]
--- NOTE | 2020-09-28 07:34 | XRAY Report ---
PROCEDURE: Shoulder 2 View RT INDICATIONS: fall from standing with pain to shoulder. hx repla TECHNIQUE: 2 views of the shoulder were acquired. COMPARISON: 06/12/2020 FINDINGS: Bones: No fractures or dislocations. No suspicious bony lesions. Visualized ribs appear intact. Right shoulder arthroplasty hardware is seen. Cervical thoracic fixation hardware is also seen. Soft tissues: No suspicious soft tissue calcifications. There is increased thoracic spine stimulato r. The visualized lung demonstrates a normal appearance. IMPRESSION: No acute fracture or dislocation. Postoperative changes are seen. Note: No significant discrepancy from the preliminary report. Reviewed by: Cole Rolle MD on 09/28/2020 6:33 AM [facility] Approved by: Cole Rolle MD on 09/28/2020 6:33 AM [facility] Station ID: [id number]
--- NOTE | 2020-09-28 07:36 | XRAY Report ---
PROCEDURE: Toe(s) LT INDICATIONS: toe pain s/p fall TECHNIQUE: 3 views of the left toe(s) acquired. COMPARISON: 06/13/2020 FINDINGS: Bones: No acute fractures or dislocations. Remote appearing fractures of the second, third, and fou rth metatarsal necks can be seen. No suspicious bony lesions. A mild to moderate hallux valgus deformity is seen, with associated degenerative change of the first metatarsophalangeal joint. Generalized osteopenia can be seen. Generalized degenerative changes are s een. Soft tissues: No suspicious soft tissue densities. IMPRESSION: No acute fractures are seen. Mild to moderate hallux valgus deformity. Note: No significant discrepancy from the preliminary report. Reviewed by: Cole Rolle MD on 09/28/2020 6:35 AM [facility] Approved by: Cole Rolle MD on 09/28/2020 6:35 AM [facility] Station ID: [id number]
--- NOTE | 2020-09-28 07:37 | XRAY Report ---
PROCEDURE: Chest 1 View X-Ray INDICATIONS: fall from standing TECHNIQUE: One view of the chest was acquired. COMPARISON: 06/12/2020 FINDINGS: Surgical changes and devices: Bilateral shoulder arthroplasty hardware can be seen. Cervicothoracic f ixation hardware can be seen. A spinal stimulator is seen. Thoracolumbar fixation hardware is also se en. Lungs and pleura: Mild interstitial prominence is seen. No arely, focal infiltrates are seen. No pneu mothorax or pleural effusions can be seen. Mediastinum: Mediastinal contours appear normal. Heart size is normal. Bones and chest wall: No suspicious bony lesions. Age-appropriate degenerative changes are seen. O verlying soft tissues appear unremarkable. IMPRESSION: Interstitial changes are seen, which may be related to baseline fibrotic change. Extensive postoperative change. Note: No significant discrepancy from the preliminary report. Reviewed by: Cole Rolle MD on 09/28/2020 6:[address] [facility] Approved by: Cole Rolle MD on 09/28/2020 6:[address] [facility] Station ID: [id number]
== END 2020-09-28 06:48 | disposition home or self-care (01) ==
LOC: ED 03:37
DX: H11.31 Conjunctival hemorrhage, right eye (principal); R22.0 Localized swelling, mass and lump, head; M54.2 Cervicalgia; M25.511 Pain in right shoulder; M79.675 Pain in left toe(s); W18.30XA Fall on same level, unspecified, initial encounter; R53.1 Weakness; R20.0 Anesthesia of skin; M20.12 Hallux valgus (acquired), left foot; Z96.611 Presence of right artificial shoulder joint; I10 Essential (primary) hypertension; Z79.82 Long term (current) use of aspirin
CPT/HCPCS: 70450; 70486; 71045; 72125; 72170; 73030; 73660; 99284; A9270

== ENCOUNTER 2020-10-02 11:57 | Outpatient (CLI) | payer MEDICARE, OTHER ==
--- NOTE | 2020-10-02 13:32 | XRAY Report ---
PROCEDURE: Thoracic Spine 2 View INDICATIONS: UPPER BACK PAIN TECHNIQUE: 3 views of the thoracic spine were acquired. COMPARISON: None. FINDINGS: Bones: No fractures or dislocations. No suspicious bony lesions. Visualized ribs are intact. Thorac olumbar fusion hardware is present. Epidural catheter is present posteriorly. Multilevel bony cement injection within the mid and lower thoracic spine. Multilevel disc space narrowing and endplate osteo phyte formation is present throughout the thoracic spine. Cervical thoracic fusion hardware is presen t. Soft tissues: No paravertebral stripe thickening. IMPRESSION: 1. Postsurgical sequelae. 2. Multilevel degenerative disc disease. 3. No acute fracture. No osseous lesion. If symptoms and/or clinical suspicion for pathology continue , further assessment with repeat plain films, or advanced imaging (e.g., CT, MRI, or bone scan) is re commended for further assessment. Reviewed by: Indigo Turk MD on 10/02/2020 1:31 PM PST Approved by: Indgio Turk MD on 10/02/2020 1:31 PM PST Station ID: [id number]
--- NOTE | 2020-10-02 13:33 | XRAY Report ---
PROCEDURE: Shoulder 2 View RT INDICATIONS: RIGHT SHOULDER PAIN TECHNIQUE: 2 views of the shoulder were acquired. COMPARISON: None. FINDINGS: Bones: No fractures or dislocations. Right shoulder arthroplasty is been performed. Periarticular os teophyte formation at the acromioclavicular joint is present. No suspicious bony lesions. Visualized ribs appear intact. Soft tissues: No suspicious soft tissue calcifications. IMPRESSION: 1. Acromioclavicular joint osteoarthritis. 2. Expected appearance of shoulder arthroplasty. Reviewed by: Indigo Turk MD on 10/02/2020 1:31 PM PST Approved by: Indigo Turk MD on 10/02/2020 1:31 PM PST Station ID: [id number]
== END 2020-10-02 23:59 | disposition home or self-care (01) ==
LOC: DI.N 11:57
PROVIDERS: ATTEND Physician Assistant
DX: R07.81 Pleurodynia (principal); M51.34 Other intervertebral disc degeneration, thoracic region; M25.511 Pain in right shoulder; M19.011 Primary osteoarthritis, right shoulder; Z96.611 Presence of right artificial shoulder joint

== ENCOUNTER 2020-11-03 14:42 | Outpatient (CLI) | payer MEDICARE, OTHER ==
[2020-11-03 15:25] LABS: BASOPHILS # (AUTO) 0.1 10^3/uL (0.0-0.1); BASOPHILS % (AUTO) 1.5 %; EOSINOPHILS # (AUTO) 0.5 10^3/uL (0.0-0.7); EOSINOPHILS % (AUTO) 5.7 %; HGB - HEMOGLOBIN 11.1 g/dL (12.0-16.0); LYMPHOCYTES # (AUTO) 1.9 10^3/uL (1.5-3.5); LYMPHOCYTES % (AUTO) 23.4 %; MEAN CORPUSCULAR HGB CONC 30.8 g/dL (32.0-36.0); MEAN CORPUSCULAR VOLUME 103.7 fL (81.0-99.0); MEAN PLATELET VOLUME 10.3 fL (7.9-10.8); MONOCYTES # (AUTO) 0.7 10^3/uL (0.0-1.0); MONOCYTES % (AUTO) 8.8 %; NEUTROPHILS # (AUTO) 4.9 10^3/uL (1.5-6.6); PLT - PLATELET COUNT 221 10^3/uL (130-450); RED BLOOD COUNT 3.47 10^6/uL (4.20-5.40); RED CELL DISTRIBUTION WIDTH 14.3 % (12.0-15.0); WHITE BLOOD COUNT 8.1 x10^3/uL (4.8-10.8)
[2020-11-03 15:30] LABS: ALBUMIN 4.3 g/dL (3.2-5.5); ALBUMIN/GLOBULIN RATIO 1.7 (1.0-2.2); BILIRUBIN,TOTAL 0.5 mg/dL (0.2-1.0); CALCIUM 10.6 mg/dL (8.5-10.3); CREATININE 0.7 mg/dL (0.4-1.0); POTASSIUM 3.8 mmol/L (3.5-5.0); TOTAL PROTEIN 6.9 g/dL (6.7-8.2)
== END 2020-11-03 14:43 | disposition home or self-care (01) ==
LOC: LAB 14:42
PROVIDERS: ATTEND Internal Medicine
DX: D64.9 Anemia, unspecified (principal); Z79.899 Other long term (current) drug therapy
CPT/HCPCS: 36415; 80053; 85025

== ENCOUNTER 2020-11-10 07:00 | Outpatient (CLI) | payer MEDICARE, OTHER ==
--- NOTE | 2020-11-10 15:16 | XRAY Report ---
PROCEDURE: Ankle 3 View LT INDICATIONS: L FOOT AND ANKLE PX TECHNIQUE: 3 views of the ankle were acquired. COMPARISON: None FINDINGS: Bones: No fractures or dislocations. Ankle mortise is normally aligned. No suspicious bony lesions . Periarticular osteophyte formation at the tibiotalar and talonavicular joints. Diffuse osteopenia. Soft tissues: No tibiotalar joint effusion. Achilles tendon appears normal. IMPRESSION: Osteoarthritis. Osteopenia. No acute fracture. No osseous lesion. If symptoms and/or cli nical suspicion for pathology continue, further assessment with repeat plain films, or advanced imagi ng (e.g., CT, MRI, or bone scan) is recommended for further assessment. Reviewed by: Indigo Turk MD on 11/10/2020 3:14 PM PDT Approved by: Indigo Turk MD on 11/10/2020 3:14 PM PDT Station ID: [id number]
--- NOTE | 2020-11-10 15:17 | XRAY Report ---
PROCEDURE: Foot 3 View LT INDICATIONS: L FOOT AND ANKLE PX TECHNIQUE: 3 views of the foot were acquired. COMPARISON: 06/04/2019 plain films FINDINGS: Bones: Diffuse osteopenia. No fractures or dislocations. No suspicious bony lesions. Joint space n arrowing and articular osteophyte formation at the tibiotalar, talonavicular, naviculocuneiform joint s. Periarticular osteophyte formation at the first metatarsophalangeal joint as well as the interphal angeal joints of the digits. Soft tissues: No tibiotalar joint effusion. Achilles tendon appears normal. IMPRESSION: 1. Osteopenia. 2. Osteoarthritis. 3. No acute fracture. No osseous lesion. If symptoms and/or clinical suspicion for pathology continue , further assessment with repeat plain films, or advanced imaging (e.g., CT, MRI, or bone scan) is re commended for further assessment. Reviewed by: Indigo Turk MD on 11/10/2020 3:16 PM PDT Approved by: Indigo Turk MD on 11/10/2020 3:16 PM PDT Station ID: [id number]
== END 2020-11-10 23:59 | disposition home or self-care (01) ==
LOC: DI.N 07:00
PROVIDERS: ATTEND Physician Assistant
DX: M19.072 Primary osteoarthritis, left ankle and foot (principal); M85.872 Other specified disorders of bone density and structure, left ankle and foot

== ENCOUNTER 2020-11-11 16:24 | Outpatient (CLI) | payer MEDICARE, OTHER ==
--- NOTE | 2020-11-11 17:05 | XRAY Report ---
PROCEDURE: Chest 2 View X-Ray INDICATIONS: WHEEZING TECHNIQUE: 2 view(s) of the chest. COMPARISON: Single view chest 09/28/2020.. FINDINGS: Surgical changes and devices: Bilateral humeral arthroplasties, extensive spine fusion procedures ext ending from the middle third of the thoracic spine inferiorly below the imaging field of view. Additi onally a spinal stimulator electrode lead set and plate set are noted dorsally. This is within the mi ddle third of the thoracic spine. There also is evidence of prior spine fusion extending from the cer vical into the upper thoracic spine, only partially visualized.. Lungs and pleura: No pleural effusions or pneumothorax. Lungs are abnormal with pulmonary hyperexpa nsion, consistent with severe COPD. Chronic mild lung base interstitial prominence is present without definite pneumonia.. Mediastinum: Mediastinal contours are normal. Heart size is normal. Bones and chest wall: No suspicious bony abnormalities. Soft tissues appear unremarkable. IMPRESSION: Severe COPD, chronic interstitial prominence best seen at each lung base, no definite ac ector disease to explain wheezing. Multiple surgical devices as discussed. Reviewed by: Akshat Roman MD on 11/11/2020 5:03 PM PDT Approved by: Akshat Roman MD on 11/11/2020 5:03 PM PDT Station ID: [id number]
== END 2020-11-11 16:25 | disposition home or self-care (01) ==
LOC: DI 16:24
PROVIDERS: ATTEND Internal Medicine
DX: R06.2 Wheezing (principal); J44.9 Chronic obstructive pulmonary disease, unspecified

== ENCOUNTER 2020-11-12 15:38 | Outpatient (CLI) | payer MEDICARE, OTHER | END 2020-11-12 23:59 | disposition home or self-care (01) | LOC: LAB.R 15:38 | PROVIDERS: ATTEND Internal Medicine | DX: R30.0 Dysuria (principal) | CPT/HCPCS: 87077; 87086; 87181 ==

== ENCOUNTER 2021-01-06 14:30 | Outpatient (CLI) | payer MEDICARE, OTHER | END 2021-01-06 23:59 | disposition home or self-care (01) | LOC: COV 14:30 | PROVIDERS: ATTEND Internal Medicine | DX: Z01.812 Encounter for preprocedural laboratory examination (principal); Z20.822 Contact with and (suspected) exposure to COVID-19 ==

== ENCOUNTER 2021-06-18 14:03 | Outpatient (CLI) | payer MEDICARE, OTHER ==
[2021-06-18 14:44] VITALS: BP 115/55
--- NOTE | 2021-06-18 14:44 | SLEEP CARE CONSULTATION ---
Information from patient questionnaire entered by Melissa Hogan MA. I have reviewed and concur with the information entered by Melissa Hogan MA. This document represents the service I personally performed and the decisions made by , Kaelyn Lopez ARNP. History of Present Illness Service Date and Time: 06/18/2021 1403 Previous diagnosis: Mild, Obstructive Sleep Apnea-Hypopnea Syndrome AHI: 11.6 Reason for follow up: annual (04/2020) Equipment type: CPAP Equipment obtained from: [employer] (getting supplies as needed) Mask style: Nasal ([place]) Backup mask available: Yes (old mask) Prior sleep studies: Yes Year and Where: 2012 and 2016 [facility] HPI additional information: CRYS FARRIS was diagnosed to have mild, AHI 11.6, obstructive sleep apnea- hypopnea syndrome and returned today with spouse for CPAP therapy annual follow- up. Sleep Study - Results Prior sleep studies: Yes Year and Where: 2012 and 2016 [facility] CPAP Compliance Data - Data Reviewed with Patient Average duration of nightly device use: 5 hours 38 minutes Compliance rate %: 80.6 (180 days - 09/23/20 to 03/21/21) Current pressure setting (cmH2O): 9-12 Humidity settin Heated hose settin Average residual AHI: 1.3 Average large leak: 14 minutes 12 seconds Subjective Missed days of use due to: reports: illness (chronic bronchitis and sinus infections; stopped using 3 months ago), other (recall) On therapy, patient: reports: sleeping better, awakening more refreshed, being more awake and alert during the day, more rested overall, other (same using positional therapy). denies: drowsiness while driving (doesn't drive) Initial [place] Sleepiness Scale score: 19 (initial) Current [place] Sleepiness Scale score: 11 (2020) Allergies and Home Medications Home medication list reviewed: Yes (Isosorbide Mononitrate; Trimethoprim) Review of Systems Review of systems same as previous: No (chronic sinus infections and bronchitis; severely fractured left wrist) Physical Exam Vital signs obtained and entered by: Samira HAMILTON Blood Pressure: 115/55 (Right) Cuff size: wrist Heart Rate: 78 O2 Saturation: 92 (with mask) Height: 5 ft 4 in Weight: 215 lb (without boots) Body Mass Index: 36.8 BMI Classification: Obese Impression and Plan 1. Obstructive Sleep Apnea-Hypopnea Syndrome, mild, with good treatment compliance and good apnea control when she was using it, stopped in 03/21/21 due to recall and chronic bronchitis/infections. She started sleeping on her side and feels she is feeling rested just as much as using her CPAP. On positional therapy, the patient has better sleep quality and is more rested overall. Her last sleep study showed her nonsupine AHI to be 5.5. She may continue positional therapy at this time to control her apnea. Patient was encouraged to register their device online with [employer] for the recall to see if their device is affected. If their device is affected they should start a claim. If patient is not able to sleep due to waking up choking, gasping for air or other respiratory distress that they may decide to continue using it until it is eithe r replaced or repaired. Patient is near normal range on their side and may practice positional therapy by staying off their back to control apnea or try to obtain an oral appliance to control apnea. Patient voiced understanding and agreement with plan. Patient's apnea severity and rationale for treatment to reduce apnea, improve sleep quality and reduce cardiovascular and cerebrovascular events was reviewed. I also reviewed the benefit of consistent device use of CPAP for cardiac disease, arrhythmia and anxiety. * Continue using positional therapy until CPAP machine is replaced * [place] device with [employer] for recall * Notify me if snoring with mask or feeling that the pressure is too much or too little * Attempt to lose weight * Call this office if any problems using CPAP * Return for follow up in 1 year, or sooner if concerns arise Counseling Topics: Spare mask, Weight loss health impact Visit Type: In Office Other Participants: Spouse/Significant Other Time Spent with Patient (minutes): 25 Provider Statement: I spent 100% of the Face to Face Visit with the patient with greater than 50% spent counseling the patient and coordination of care.
== END 2021-06-18 14:04 | disposition home or self-care (01) ==
LOC: SC 14:03
PROVIDERS: ATTEND Nurse Practitioner Family
DX: G47.33 Obstructive sleep apnea (adult) (pediatric) (principal); E66.9 Obesity, unspecified; Z68.36 Body mass index [BMI] 36.0-36.9, adult
CPT/HCPCS: 99213; G0463; 99212

== ENCOUNTER 2021-06-23 15:20 | Emergency (ER) | payer MEDICARE, OTHER ==
[2021-06-23] MEDS ORDERED: ASPIRIN CHEW 81 MG TABLET PO STA (15:52)
[2021-06-23] MEDS ORDERED: NITROGLYCERIN SL 0.4 MG TABLET SL STA (15:52)
--- NOTE | 2021-06-23 15:55 | ED Physician Documentation ---
PD HPI CHEST PAIN - Stated complaint Stated Complaint: CHEST PX - History obtained from History obtained from: Patient - Additional information Additional information: 75-year-old woman with history of peripneumonic pericarditis and some sort of valvular problem that "perked up on its own." She also has a history of interstitial lung disease. [place] and she developed severe substernal chest pressure radiating to both sides of the neck. She has been more short of breath than normal the last few days. Review of Systems Ten Systems: 10 systems reviewed and negative Constitutional: reports: Fatigue. denies: Fever, Chills Cardiac: reports: Chest pain / pressure. denies: Palpitations Respiratory: reports: Dyspnea PD PAST MEDICAL HISTORY - Past Medical History Cardiovascular: Hypertension, High cholesterol Respiratory: Pneumonia, Shortness of breath, Sleep apnea, CPAP use, Other Neuro: TIA Endocrine/Autoimmune: None, Other GI: Chronic diarrhea, Chronic constipation BELLOWS CHARGER ASSEMBLER: None : Kidney stones HEENT: Chronic vision loss Psych: None Musculoskeletal: Chronic back pain Derm: Other - Past Surgical History Past Surgical History: Yes General: Cholecystectomy, Colonoscopy Ortho: Shoulder arthroplasty, Spine surgery, Other /BELLOWS CHARGER ASSEMBLER: Hysterectomy Cardiovascular: Other HEENT: Cataracts, Tonsil/Adenoidectomy Derm: Other - Present Medications Home Medications: Ambulatory Orders Medication Instructions Recorded Confirmed Atorvastatin Calcium [Lipitor] 20 mg PO QPM 05/31/13 09/28/20 Mycophenolate Mofetil [Cellcept] 1,000 mg PO BID 05/31/13 09/28/20 Pantoprazole Sodium 40 mg PO BID 05/31/13 09/28/20 Vitamin B Complex [B Complex] 1 each PO DAILY 08/08/15 09/28/20 Duloxetine HCl [Cymbalta] 60 mg PO DAILY 10/10/16 09/28/20 Multivitamin [Theragran] 1 tab PO DAILY 10/10/16 09/28/20 Valacyclovir HCl [Valacyclovir] 500 mg PO PRN PRN 10/10/16 09/28/20 predniSONE [Prednisone] 5 mg PO DAILY 10/10/16 09/28/20 Lactobacillus Acidophilus 1 tab DAILY 03/02/17 09/28/20 [Probiotic Acidophilus] Ibandronate Sodium 150 mg PO Q28D 06/14/18 09/28/20 carvediloL [Coreg] 3.125 mg PO BID #60 tablet 06/17/18 09/28/20 Trimethoprim 100 mg PO DAILY 06/08/19 09/28/20 Aspirin [Aspirin EC] 162 mg PO DAILY 09/28/20 09/28/20 Dronedarone HCl [Multaq] 400 mg PO DAILY 09/28/20 09/28/20 Isosorbide Mononitrate [Isosorbide 30 mg PO DAILY 09/28/20 09/28/20 Mononitrate ER] Potassium Chloride 10 meq PO DAILY 09/28/20 09/28/20 traZODone [Desyrel] 50 mg pe PO HS PRN 09/28/20 09/28/20 - Allergies Allergies/Adverse Reactions: Allergies Allergy/AdvReac Type Severity Reaction Status Date / Time iodine Allergy Rash Verified 06/23/21 16:23 NSAIDS (Non-Steroidal Allergy abd pain Verified 06/23/21 16:23 Anti-Inflamma pregabalin [From Lyrica] Allergy muscle Verified 06/23/21 16:23 spasms zolpidem tartrate * AdvReac Intermediate Hallucinati Verified 06/23/21 16:23 [From Ambien] ons amitriptyline AdvReac Hallucinati Verified 06/23/21 16:23 ons fentanyl AdvReac Hallucinati Verified 06/23/21 16:23 ons gabapentin AdvReac Hallucinati Verified 06/23/21 16:23 ons artichokes Allergy Unknown Uncoded 06/23/21 16:23 cantelope Allergy Unknown Uncoded 06/23/21 16:23 shellfish Allergy Unknown Uncoded 06/23/21 16:23 - Social History Does the pt smoke?: No Smoking Status: Never smoker Does the pt drink ETOH?: No Does the pt have substance abuse?: No - Immunizations Immunizations are current?: Yes - POLST Patient has POLST: No PD ED PE NORMAL - Vitals Vital signs reviewed: Yes - General General: Alert and oriented X 3, No acute distress - HEENT HEENT: PERRL, EOMI - Neck Neck: Supple, no meningeal sign, No bony TTP - Cardiac Cardiac: RRR, No murmur - Respiratory Respiratory: No respiratory distress, Clear bilaterally - Abdomen Abdomen: Soft, Non tender - Back Back: No CVA TTP, No spinal TTP - Derm Derm: Normal color, Warm and dry - Extremities Extremities: No edema, No calf tenderness / cord - Neuro Neuro: Alert and oriented X 3, Normal speech Results - Vitals Vitals: Vital Signs - 24 hr 06/23/21 06/23/21 06/23/21 16:19 16:39 16:53 Temperature 36.5 C Heart Rate 81 71 73 Respiratory 18 16 18 Rate Blood Pressure 132/66 H 119/77 119/77 O2 Saturation 99 98 98 Oxygen O2 Source Room air - EKG (time done) 1522 Rate: Rate (enter#) (77) Rhythm: NSR [place]: Normal Intervals: Prolonged CT QRS: Normal, LVH Ischemia: No: ST elevation c/w ischemia, ST depression - Labs Labs: Laboratory Tests 06/23/21 06/23/21 06/23/21 16:20 16:20 16:20 WBC 8.2 RBC 3.30 L Hgb 10.5 L Hct 35.2 L MCV 106.7 H MCH 31.8 H MCHC 29.8 L RDW 14.4 Plt Count 229 MPV 9.9 Neut # (Auto) 5.0 Lymph # (Auto) 1.6 [place] # (Auto) 1.0 Eos # (Auto) 0.4 Baso # (Auto) 0.1 Absolute Nucleated RBC 0.00 Nucleated RBC % 0.0 Sodium 139 Potassium 4.0 Chloride 101 Carbon Dioxide 27 Anion Gap 11.0 BUN 13 Creatinine 0.7 Estimated GFR (MDRD) 82 L Glucose 96 Calcium 9.4 Total Bilirubin 0.5 AST 22 ALT 16 Alkaline Phosphatase 62 Troponin I High Sens 4.5 B-Natriuretic Peptide Total Protein 6.3 L Albumin 3.9 Globulin 2.4 Albumin/Globulin Ratio 1.6 Lipase 21 L 06/23/21 16:20 WBC RBC Hgb Hct MCV MCH MCHC RDW Plt Count MPV Neut # (Auto) Lymph # (Auto) [place] # (Auto) Eos # (Auto) Baso # (Auto) Absolute Nucleated RBC Nucleated RBC % Sodium Potassium Chloride Carbon Dioxide Anion Gap BUN Creatinine Estimated GFR (MDRD) Glucose Calcium Total Bilirubin AST ALT Alkaline Phosphatase Troponin I High Sens B-Natriuretic Peptide 121 H Total Protein Albumin Globulin Albumin/Globulin Ratio Lipase - Rads (name of study) 1v cxr Radiology: EMP read contemporaneously (ILD +/- CHF) Procedures - General procedure General procedure: She was difficult for IV access, I personally placed a long 22-gauge IV in the right antecubital fossa after ChloraPrep with real-time ultrasound guidance the flushed and isis well. PD MEDICAL DECISION MAKING - ED course ED course: 75-year-old woman presents with concerning chest pain, but it went away completely shortly after arrival. And remained pain-free throughout her stay here. Her biomarkers are negative and her EKG is without ischemic changes. She was offered observation, but she would prefer to go home and follow-up with her direct care professional as an outpatient. She under stands the need to return anytime if she worsens. Departure - Departure Disposition: Home, Self Care Clinical Impression: Chest pain Qualifiers: Chest pain type: unspecified Qualified Code(s): R07.9 - Chest pain, unspecified Condition: Good Record reviewed to determine appropriate education?: Yes Instructions: ED Chest Pain Atypical Unkn Cause Comments: Nothing too concerning came up on the work-up today. Your troponin was negative, your EKG was without concerning findings suggesting that this was related to your heart. That said if you develop recurrent pain please return for reevaluation, regardless continue current medications and follow-up with your direct care professional, next available appointment, calling tomorrow for that appointment.
--- NOTE | 2021-06-23 16:20 | XRAY Report ---
PROCEDURE: Chest 1 View X-Ray INDICATIONS: Chest Pain TECHNIQUE: One view of the chest was acquired. COMPARISON: 11/11/2020 FINDINGS: Surgical changes and devices: Patient is status post bilateral shoulder arthroplasty and extensive fu farhad of cervical spine and thoracolumbar spine unchanged from prior studies.. Lungs and pleura: Increased interstitial lung reticular markings are again seen unchanged from prior study. Chronic emphysematous changes also noted. There is interval worsening of lung aeration with goode ggestion of subtle ill-defined opacities scattered in bilateral lung juares, superimposed pulmonary e antonia is suspected. Mediastinum: Mediastinal contours appear normal. Heart size is normal. Bones and chest wall: No suspicious bony lesions. Overlying soft tissues appear unremarkable. IMPRESSION: Suggestion of chronic interstitial lung disease with possible superimposed mild pulmonary edema. No d efinite focal infiltrate. No pneumothorax. No significant pleural effusion. Reviewed by: Dagoberto Barrera MD on 06/23/2021 4:19 PM PST Approved by: Dagoberto Barrera MD on 06/23/2021 4:19 PM PST Station ID: [id number]
[2021-06-23 16:31] LABS: BASOPHILS # (AUTO) 0.1 10^3/uL (0.0-0.1); BASOPHILS % (AUTO) 1.2 %; EOSINOPHILS # (AUTO) 0.4 10^3/uL (0.0-0.7); EOSINOPHILS % (AUTO) 5.4 %; HCT - HEMATOCRIT 35.2 % (37.0-47.0); HGB - HEMOGLOBIN 10.5 g/dL (12.0-16.0); LYMPHOCYTES # (AUTO) 1.6 10^3/uL (1.5-3.5); LYMPHOCYTES % (AUTO) 19.1 %; MEAN CORPUSCULAR HEMOGLOBIN 31.8 pg (27.0-31.0); MEAN CORPUSCULAR HGB CONC 29.8 g/dL (32.0-36.0); MEAN CORPUSCULAR VOLUME 106.7 fL (81.0-99.0); MEAN PLATELET VOLUME 9.9 fL (7.9-10.8); MONOCYTES % (AUTO) 12.5 %; NEUTROPHILS % (AUTO) 61.1 %; PLT - PLATELET COUNT 229 10^3/uL (130-450); RED CELL DISTRIBUTION WIDTH 14.4 % (12.0-15.0); WHITE BLOOD COUNT 8.2 x10^3/uL (4.8-10.8)
[2021-06-23 16:48] LABS: ALBUMIN 3.9 g/dL (3.2-5.5); ALBUMIN/GLOBULIN RATIO 1.6 (1.0-2.2); BILIRUBIN,TOTAL 0.5 mg/dL (0.2-1.0); CALCIUM 9.4 mg/dL (8.5-10.3); CREATININE 0.7 mg/dL (0.4-1.0); TOTAL PROTEIN 6.3 g/dL (6.7-8.2)
[2021-06-23 17:26] VITALS: BP 120/80
== END 2021-06-23 17:37 | disposition home or self-care (01) ==
LOC: ED 15:20
DX: R07.9 Chest pain, unspecified (principal)
CPT/HCPCS: 36415; 80053; 83690; 83880; 84484; 85025; 93005; 99283; 99284

== ENCOUNTER 2021-08-17 18:59 | Outpatient (CLI) | payer MEDICARE, OTHER ==
--- NOTE | 2021-08-18 14:41 | Ultrasound Report ---
PROCEDURE: Duplex Ext Veins Left INDICATIONS: SWELLING LEFT LEG TECHNIQUE: Real-time imaging, as well as color and pulse Doppler interrogation, were performed of the lower extr emity deep veins from the inguinal ligament to the popliteal fossa. COMPARISON: None. FINDINGS: The deep veins are normally compressible, and free of intraluminal thrombus. Color and pu lse Doppler demonstrate normal phasic intraluminal flow. There is normal augmentation response to di stal compression maneuver. It is noted that there is limited compression of the superficial femoral veins in the distal aspect as well as veins within the calf secondary to patient's ability to tolerat e compression. There is a posterior fossa focus of decreased echogenicity measuring 2.4 x 0.5 x 1.7 c m. The area of palpable concern within the mid calf corresponds to approximate 5 mm focus of shadowing w ithout increased vascularity. IMPRESSION: 1. No deep venous thrombosis with limited compression of superficial femoral caffeine's as described above. 2. Mc cyst. 3. Focus of hypoechoic shadowing at the area of palpable concern in the distal calf possibly related to a subcentimeter focus of soft tissue calcification. If this area remains of concern, CT is recomme nded as ultrasound is considered indeterminate. Reviewed by: Cathy Orozco MD on 08/18/2021 2:39 PM PST Approved by: Cathy Orozco MD on 08/18/2021 2:39 PM PST Station ID: [id number]
== END 2021-08-17 19:00 | disposition home or self-care (01) ==
LOC: DI 18:59
PROVIDERS: ATTEND Internal Medicine
DX: M71.22 Synovial cyst of popliteal space [Baker], left knee (principal); R93.6 Abnormal findings on diagnostic imaging of limbs; R93.89 Abnormal findings on diagnostic imaging of other specified body structures

== ENCOUNTER 2021-08-22 08:00 | Outpatient (CLI) | payer MEDICARE, OTHER ==
[2021-08-24 11:27] LABS: BILIRUBIN,URINE NEGATIVE (NEGATIVE); CLARITY,URINE CLEAR (CLEAR); GLUCOSE, URINE (UA) NEGATIVE (NEGATIVE); KETONES,URINE (UA) NEGATIVE (NEGATIVE); LEUKOCYTE ESTERASE, URINE SMALL (NEGATIVE); NITRITE,URINE POSITIVE (NEGATIVE); OCCULT BLOOD,URINE NEGATIVE (NEGATIVE); PH,URINE 5.5 PH (5.0-7.5); PROTEIN,URINE TRACE mg/dL (NEGATIVE); UROBILINOGEN,URINE 0.2 (NORMAL) E.U./dL (NORMAL)
[2021-08-24 11:29] LABS: BACTERIA,URINE Moderate /HPF (None Seen); RBC,URINE 0-5 /HPF (0-5); SQUAMOUS EPITHELIAL CELL,UR FEW Squamous (<= Few)
[2021-08-24 11:35] LABS: CRYSTALS,URINE 6-10 Calcium Oxalate /LPF
== END 2021-08-22 23:59 ==
LOC: LAB 08:00
PROVIDERS: ATTEND Internal Medicine
DX: R30.0 Dysuria (principal)
CPT/HCPCS: 81001; 87086; 87181

== ENCOUNTER 2021-10-20 09:25 | Outpatient (CLI) | payer MEDICARE, OTHER ==
[2021-10-20 10:05] LABS: BILIRUBIN,URINE NEGATIVE (NEGATIVE); GLUCOSE, URINE (UA) NEGATIVE (NEGATIVE); KETONES,URINE (UA) NEGATIVE (NEGATIVE); LEUKOCYTE ESTERASE, URINE NEGATIVE (NEGATIVE); NITRITE,URINE POSITIVE (NEGATIVE); OCCULT BLOOD,URINE NEGATIVE (NEGATIVE); PROTEIN,URINE NEGATIVE (NEGATIVE); UROBILINOGEN,URINE 0.2 (NORMAL) E.U./dL (NORMAL)
[2021-10-20 10:16] LABS: BACTERIA,URINE Moderate /HPF (None Seen); CLARITY,URINE CLEAR (CLEAR); RBC,URINE 0-5 /HPF (0-5); SQUAMOUS EPITHELIAL CELL,UR RARE Squamous (<= Few)
== END 2021-10-20 09:26 | disposition home or self-care (01) ==
LOC: LAB 09:25
PROVIDERS: ATTEND Internal Medicine
DX: R30.0 Dysuria (principal)
CPT/HCPCS: 81001; 87086; 87181

== ENCOUNTER 2021-10-30 14:33 | Outpatient (CLI) | payer MEDICARE, OTHER ==
[2021-10-30 14:48] LABS: BASOPHILS # (AUTO) 0.1 10^3/uL (0.0-0.1); EOSINOPHILS # (AUTO) 0.4 10^3/uL (0.0-0.7); EOSINOPHILS % (AUTO) 4.4 %; HCT - HEMATOCRIT 35.6 % (37.0-47.0); HGB - HEMOGLOBIN 11.3 g/dL (12.0-16.0); LYMPHOCYTES # (AUTO) 2.2 10^3/uL (1.5-3.5); LYMPHOCYTES % (AUTO) 25.7 %; MEAN CORPUSCULAR HEMOGLOBIN 32.7 pg (27.0-31.0); MEAN CORPUSCULAR HGB CONC 31.7 g/dL (32.0-36.0); MEAN CORPUSCULAR VOLUME 102.9 fL (81.0-99.0); MEAN PLATELET VOLUME 9.9 fL (7.9-10.8); MONOCYTES # (AUTO) 0.8 10^3/uL (0.0-1.0); MONOCYTES % (AUTO) 9.8 %; NEUTROPHILS % (AUTO) 58.5 %; PLT - PLATELET COUNT 249 10^3/uL (130-450); RED BLOOD COUNT 3.46 10^6/uL (4.20-5.40); RED CELL DISTRIBUTION WIDTH 14.3 % (12.0-15.0); WHITE BLOOD COUNT 8.6 x10^3/uL (4.8-10.8)
[2021-10-30 15:03] LABS: ALBUMIN 4.1 g/dL (3.2-5.5); ALBUMIN/GLOBULIN RATIO 1.6 (1.0-2.2); BILIRUBIN,TOTAL 0.6 mg/dL (0.2-1.0); CREATININE 0.8 mg/dL (0.4-1.0); POTASSIUM 4.2 mmol/L (3.5-5.0); TOTAL PROTEIN 6.7 g/dL (6.7-8.2)
[2021-10-30 15:22] LABS: FERRITIN 283.2 ng/mL (11.0-306.8)
== END 2021-10-30 14:34 | disposition home or self-care (01) ==
LOC: LAB 14:33
PROVIDERS: ATTEND Internal Medicine
DX: D64.9 Anemia, unspecified (principal); Z79.899 Other long term (current) drug therapy
CPT/HCPCS: 36415; 80053; 82607; 82728; 85025

== ENCOUNTER 2021-12-24 14:23 | Inpatient (IN) | payer MEDICARE, OTHER ==
[2021-12-24] MEDS ORDERED: FUROSEMIDE 40 MG/4 ML VIAL IVP STA (14:45)
--- NOTE | 2021-12-24 14:47 | ED Physician Documentation ---
PD HPI CHEST PAIN - Stated complaint Stated Complaint: SWOLLEN LEGS,SOA - Chief complaint Chief Complaint: Cardiac - History obtained from History obtained from: Patient - Additional information Additional information: 76-year-old woman with history of pneumonia and mixed connective tissue disorder currently on 5 mg of prednisone a day, some sort of valvular issue and history of constrictive pericarditis it sounds like presents with several days worth of shortness of breath with orthopnea and nonproductive cough. States she developed some chest pain just on arrival here. It is a burning central pain radiating upwards in the from the center. She has significant pedal edema and an 8 pound weight gain over the last few days. She saw her doctor in the office who prescribed Lasix but she has yet to take it. Review of the chart shows last echo here on June 15, 2018 and basically normal. Review of Systems Ten Systems: 10 systems reviewed and negative Constitutional: reports: Fatigue Nose: denies: Rhinorrhea / runny nose, Congestion Cardiac: reports: Chest pain / pressure, Pedal edema. denies: Palpitations, Calf pain Respiratory: reports: Dyspnea, Cough PD PAST MEDICAL HISTORY - Past Medical History Cardiovascular: Hypertension, High cholesterol Respiratory: Pneumonia, Shortness of breath, Sleep apnea, CPAP use, Other Neuro: TIA Endocrine/Autoimmune: None, Other GI: Chronic diarrhea, Chronic constipation NURSING ASSISTANT: None : Kidney stones HEENT: Chronic vision loss Psych: None Musculoskeletal: Chronic back pain Derm: Other - Past Surgical History Past Surgical History: Yes General: Cholecystectomy, Colonoscopy Ortho: Shoulder arthroplasty, Spine surgery, Other /NURSING ASSISTANT: Hysterectomy Cardiovascular: Other HEENT: Cataracts, Tonsil/Adenoidectomy Derm: Other - Present Medications Home Medications: Ambulatory Orders Medication Instructions Recorded Confirmed Atorvastatin Calcium [Lipitor] 20 mg PO QPM 05/31/13 09/28/20 Mycophenolate Mofetil [Cellcept] 1,000 mg PO BID 05/31/13 09/28/20 Pantoprazole Sodium 40 mg PO BID 05/31/13 09/28/20 Vitamin B Complex [B Complex] 1 each PO DAILY 08/08/15 09/28/20 Duloxetine HCl [Cymbalta] 60 mg PO DAILY 10/10/16 09/28/20 Multivitamin [Theragran] 1 tab PO DAILY 10/10/16 09/28/20 Valacyclovir HCl [Valacyclovir] 500 mg PO PRN PRN 10/10/16 09/28/20 predniSONE [Prednisone] 5 mg PO DAILY 10/10/16 09/28/20 Lactobacillus Acidophilus 1 tab DAILY 03/02/17 09/28/20 [Probiotic Acidophilus] Ibandronate Sodium 150 mg PO Q28D 06/14/18 09/28/20 carvediloL [Coreg] 3.125 mg PO BID #60 tablet 06/17/18 09/28/20 Trimethoprim 100 mg PO DAILY 06/08/19 09/28/20 Aspirin [Aspirin EC] 162 mg PO DAILY 09/28/20 09/28/20 Dronedarone HCl [Multaq] 400 mg PO DAILY 09/28/20 09/28/20 Isosorbide Mononitrate [Isosorbide 30 mg PO DAILY 09/28/20 09/28/20 Mononitrate ER] Potassium Chloride 10 meq PO DAILY 09/28/20 09/28/20 traZODone [Desyrel] 50 mg pe PO HS PRN 09/28/20 09/28/20 - Allergies Allergies/Adverse Reactions: Allergies Allergy/AdvReac Type Severity Reaction Status Date / Time iodine Allergy Rash Verified 12/24/21 14:35 NSAIDS (Non-Steroidal Allergy abd pain Verified 12/24/21 14:35 Anti-Inflamma pregabalin [From Lyrica] Allergy muscle Verified 12/24/21 14:35 spasms zolpidem tartrate * AdvReac Intermediate Hallucinati Verified 12/24/21 14:35 [From Laila[place]] ons amitriptyline AdvReac Hallucinati Verified 12/24/21 14:35 ons fentanyl AdvReac Hallucinati Verified 12/24/21 14:35 ons gabapentin AdvReac Hallucinati Verified 12/24/21 14:35 ons artichokes Allergy Unknown Uncoded 12/24/21 14:35 cantelope Allergy Unknown Uncoded 12/24/21 14:35 shellfish Allergy Unknown Uncoded 12/24/21 14:35 - Social History Does the pt smoke?: No Smoking Status: Never smoker Does the pt drink ETOH?: No Does the pt have substance abuse?: No - Immunizations Immunizations are current?: Yes - POLST Patient has POLST: No PD ED PE NORMAL - Vitals Vital signs reviewed: Yes - General General: Alert and oriented X 3, No acute distress - HEENT HEENT: PERRL, EOMI - Neck Neck: Supple, no meningeal sign, No bony TTP, No bruit - Cardiac Cardiac: RRR, No murmur - Respiratory Respiratory: Other (Mild tachypnea but speaking in full sentences, significant crackles at the right base.) - Abdomen Abdomen: Normal bowel sounds, Soft, Non tender - Back Back: No CVA TTP, No spinal TTP - Derm Derm: Normal color, Warm and dry - Extremities Extremities: Other (3-4+ pitting pedal edema up to the knees, symmetric, no tenderness) - Neuro Neuro: Alert and oriented X 3, Normal speech Results - Vitals Vitals: Vital Signs - 24 hr 12/24/21 12/24/21 12/24/21 14:27 16:01 17:28 Temperature 36.4 C L Heart Rate 88 81 Respiratory 14 19 Rate Blood Pressure 149/97 H 115/62 O2 Saturation 98 92 99 Oxygen O2 Source Nasal cannula - EKG (time done) 1514 Rate: Rate (enter#) (79) Rhythm: NSR (w pvcs) [place]: Normal Intervals: Prolonged [place] QRS: Normal Ischemia: Non specific changes - Labs Labs: Laboratory Tests 12/24/21 12/24/21 12/24/21 14:52 14:52 14:52 WBC 10.0 RBC 3.39 L Hgb 11.0 L Hct 35.0 L MCV 103.2 H MCH 32.4 H MCHC 31.4 L RDW 14.5 Plt Count 257 MPV 10.2 Neut # (Auto) 6.6 Lymph # (Auto) 2.0 [place] # (Auto) 1.1 H Eos # (Auto) 0.2 Baso # (Auto) 0.1 Absolute Nucleated RBC 0.00 Nucleated RBC % 0.0 Sodium 140 Potassium 4.0 Chloride 102 Carbon Dioxide 27 Anion Gap 11.0 BUN 17 Creatinine 0.7 Estimated GFR (MDRD) 81 L Glucose 115 H Calcium 10.1 Total Bilirubin 0.4 AST 25 ALT 18 Alkaline Phosphatase 64 Troponin I High Sens 5.4 B-Natriuretic Peptide Total Protein 6.8 Albumin 3.9 Globulin 2.9 Albumin/Globulin Ratio 1.3 Lipase 23 12/24/21 14:52 WBC RBC Hgb Hct MCV MCH MCHC RDW Plt Count MPV Neut # (Auto) Lymph # (Auto) [place] # (Auto) Eos # (Auto) Baso # (Auto) Absolute Nucleated RBC Nucleated RBC % Sodium Potassium Chloride Carbon Dioxide Anion Gap BUN Creatinine Estimated GFR (MDRD) Glucose Calcium Total Bilirubin AST ALT Alkaline Phosphatase Troponin I High Sens B-Natriuretic Peptide 252 H Total Protein Albumin Globulin Albumin/Globulin Ratio Lipase - Rads (name of study) Single view chest x-ray demonstrates CHF, possible pneumonia. Radiology: EMP read contemporaneously Procedures - General procedure General procedure: She was difficult for IV access, the nurse was unable to place an IV. I personally placed a long 22-gauge IV in the right cephalic vein after ChloraPrep with real-time ultrasound guidance and it flushed and isis well. PD MEDICAL DECISION MAKING - ED course ED course: 76-year-old woman presents with anasarca shortness of breath and productive cough with green sputum. She is afebrile. Exam more consistent with pneumonia in addition to CHF as opposed to CHF alone. She was administered IV Lasix, IV Rocephin and IV Zithromax here. She did spontaneously desaturate down to 83% on room air and I spoke with Dr. Jang for admission at about 5 PM. I also ordered stress dose hydrocortisone since she is on chronic prednisone. The combination of dronedarone and Azithromycin was considered, but I did not feel it to be a significant contraindication since her current QTC is not prolonged. Departure - Departure Disposition: [facility] DC/Xfer Clinical Impression: Congestive heart failure, Pneumonia Condition: Serious
[2021-12-24 14:59] LABS: BASOPHILS # (AUTO) 0.1 10^3/uL (0.0-0.1); BASOPHILS % (AUTO) 1.1 %; EOSINOPHILS # (AUTO) 0.2 10^3/uL (0.0-0.7); EOSINOPHILS % (AUTO) 2.3 %; LYMPHOCYTES % (AUTO) 19.8 %; MEAN CORPUSCULAR HEMOGLOBIN 32.4 pg (27.0-31.0); MEAN CORPUSCULAR HGB CONC 31.4 g/dL (32.0-36.0); MEAN CORPUSCULAR VOLUME 103.2 fL (81.0-99.0); MEAN PLATELET VOLUME 10.2 fL (7.9-10.8); MONOCYTES # (AUTO) 1.1 10^3/uL (0.0-1.0); MONOCYTES % (AUTO) 10.6 %; NEUTROPHILS # (AUTO) 6.6 10^3/uL (1.5-6.6); NEUTROPHILS % (AUTO) 65.9 %; PLT - PLATELET COUNT 257 10^3/uL (130-450); RED BLOOD COUNT 3.39 10^6/uL (4.20-5.40); RED CELL DISTRIBUTION WIDTH 14.5 % (12.0-15.0)
--- NOTE | 2021-12-24 15:08 | XRAY Report ---
PROCEDURE: Chest 1 View X-Ray INDICATIONS: Chest Pain TECHNIQUE: One view of the chest was acquired. COMPARISON: 06/23/2021 FINDINGS: Surgical changes and devices: Extensive postsurgical changes in cervical spine, lower thoracic spine and right shoulder are again seen.. Lungs and pleura: There is suggestion of interstitial pulmonary edema. Underlying small patchy infilt rates cannot be excluded. No significant pleural effusion. No gross pneumothorax. Mediastinum: Mediastinal contours appear normal. Heart size is enlarged. Bones and chest wall: No suspicious bony lesions. Overlying soft tissues appear unremarkable. IMPRESSION: CHF changes, underlying small infiltrate/pneumonitis cannot be excluded. No significant pleural effus ion or pneumothorax. Reviewed by: Dagoberto Barrera MD on 12/24/2021 3:07 PM PDT Approved by: Dagoberto Barrera MD on 12/24/2021 3:07 PM PDT Station ID: [id number]
[2021-12-24 15:16] LABS: ALBUMIN 3.9 g/dL (3.2-5.5); ALBUMIN/GLOBULIN RATIO 1.3 (1.0-2.2); BILIRUBIN,TOTAL 0.4 mg/dL (0.2-1.0); CALCIUM 10.1 mg/dL (8.5-10.3); CREATININE 0.7 mg/dL (0.4-1.0); TOTAL PROTEIN 6.8 g/dL (6.7-8.2)
[2021-12-24] MEDS ORDERED: cefTRIAXone 1 GM in SODIUM CHLORIDE 0.9% MINIBAG 100 ML IV STA (16:29)
[2021-12-24] MEDS ORDERED: ONDANSETRON 4 MG/2 ML VIAL IVP STA (16:59)
[2021-12-24] MEDS ORDERED: AZITHROMYCIN INJ 500 MG in SODIUM CHLORIDE 0.9% 250 ML IV STA (18:03)
[2021-12-24] MEDS ORDERED: HYDROCORTISONE SUCCINATE 100 MG/2 ML VIAL IVP STA (18:04)
[2021-12-24] MEDS ORDERED: oxyCODONE 5 MG TABLET PO STA (18:25)
[2021-12-24] MEDS ORDERED: ONDANSETRON 4 MG/2 ML VIAL IVP PRN (19:51)
[2021-12-24 19:55] LABS: B. PARAPERTUSSIS- RESP PCR PAN NOT DETECTED; B. PERTUSSIS- RESP PCR PANEL NOT DETECTED; C. PNEUMONIAE- RESP PCR PANEL NOT DETECTED; CORONAVIRUS 229E-RESP PCR NOT DETECTED; CORONAVIRUS HKU1-RESP PCR NOT DETECTED; CORONAVIRUS NL63-RESP PCR NOT DETECTED; CORONAVIRUS OC43-RESP PCR NOT DETECTED; HUMAN METAPNEUMOVIRUS NOT DETECTED; INFLUENZA A- RESP PCR PANEL NOT DETECTED; INFLUENZA B - RESP PCR PANEL NOT DETECTED; M. PNEUMONIAE- RESP PCR PANEL NOT DETECTED; PARAINFLUENZA VIRUS 1 NOT DETECTED; PARAINFLUENZA VIRUS 2 NOT DETECTED; PARAINFLUENZA VIRUS 3 NOT DETECTED; PARAINFLUENZA VIRUS 4 NOT DETECTED; RHINOVIRUS/ENTEROVIRUS NOT DETECTED; RSV- RESP PCR PANEL NOT DETECTED; SARS-CoV-2 -RESP PCR PANEL NOT DETECTED
--- NOTE | 2021-12-24 20:03 | HISTORY & PHYSICAL EXAMINATION ---
Chief Complaint - Chief Complaint Chief Complaint: dyspnea, lower extremity edema History of Present Illness - Admitted From Admitted From:: [facility] ED - History Obtained From Records Reviewed: yes History obtained from: patient - History of Present Illness HPI Comment/Other: Patient is a 76-year-old female with an extensive medical history which includes a mixed connective tissue disease, hyperlipidemia, unspecified dysrhythmia, acid reflux, coronary artery disease, mitral valve disorder, sleep apnea, fibromyalgia, osteoporosis, chronic angina who presented to the ED today with complaint of lower extremity edema left greater than right which has been going on for 6 days. She became dyspneic today and reported a wheeze. Overall she reports feeling miserable. In the emergency department she was noted to have an oxygen saturation of 83% on room air with ambulation. Work-up included a chest x-ray which suggested CHF and could not rule out pneumonitis. Patient's BNP was 252. As a result of her clinical presentation she was presented for admission for further treatment. She has chronic chest pain. She denied abdominal pain but reported nausea and vomiting. She denied fever or chills. 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: reports: None : reports: Kidney stones HEENT: reports: Chronic vision loss Psych: reports: None Musculoskeletal: reports: Chronic back pain Derm: reports: Other MRSA Hx?: Yes - Past Surgical History General: reports: Cholecystectomy, Colonoscopy Ortho: reports: Shoulder arthroplasty, Spine surgery, Other /PORTABLE GRINDING MACHINE OPERATOR: reports: Hysterectomy Cardiovascular: reports: Other HEENT: reports: Cataracts, Tonsil/Adenoidectomy Derm: reports: Other - Family & Social History Family History Comment/Other: Positive for diabetes, heart disease and cancer Living arrangement: At home Living Situation: With spouse/s.o. Social History Notes: She rarely consumes alcohol. She does not use tobacco products or recreational substances. - POLST Patient has POLST: No POLST Status: Full Code Meds/Allgy - Home Medications Home Medications: Ambulatory Orders Medication Instructions Recorded Confirmed Atorvastatin Calcium [Lipitor] 20 mg PO QPM 05/31/13 09/28/20 Mycophenolate Mofetil [Cellcept] 1,000 mg PO BID 05/31/13 09/28/20 Pantoprazole Sodium 40 mg PO BID 05/31/13 09/28/20 Vitamin B Complex [B Complex] 1 each PO DAILY 08/08/15 09/28/20 Duloxetine HCl [Cymbalta] 60 mg PO DAILY 10/10/16 09/28/20 Multivitamin [Theragran] 1 tab PO DAILY 10/10/16 09/28/20 Valacyclovir HCl [Valacyclovir] 500 mg PO PRN PRN 10/10/16 09/28/20 predniSONE [Prednisone] 5 mg PO DAILY 10/10/16 09/28/20 Lactobacillus Acidophilus 1 tab DAILY 03/02/17 09/28/20 [Probiotic Acidophilus] Ibandronate Sodium 150 mg PO Q28D 06/14/18 09/28/20 carvediloL [Coreg] 3.125 mg PO BID #60 tablet 06/17/18 09/28/20 Trimethoprim 100 mg PO DAILY 06/08/19 09/28/20 Aspirin [Aspirin EC] 162 mg PO DAILY 09/28/20 09/28/20 Dronedarone HCl [Multaq] 400 mg PO DAILY 09/28/20 09/28/20 Isosorbide Mononitrate [Isosorbide 30 mg PO DAILY 09/28/20 09/28/20 Mononitrate ER] Potassium Chloride 10 meq PO DAILY 09/28/20 09/28/20 traZODone [Desyrel] 50 mg pe PO HS PRN 09/28/20 09/28/20 - Allergies Allergies/Adverse Reactions: Allergies Allergy/AdvReac Type Severity Reaction Status Date / Time iodine Allergy Rash Verified 12/24/21 14:35 NSAIDS (Non-Steroidal Allergy abd pain Verified 12/24/21 14:35 Anti-Inflamma pregabalin [From Lyrica] Allergy muscle Verified 12/24/21 14:35 spasms zolpidem tartrate * AdvReac Intermediate Hallucinati Verified 12/24/21 14:35 [From Ambien] ons amitriptyline AdvReac Hallucinati Verified 12/24/21 14:35 ons fentanyl AdvReac Hallucinati Verified 12/24/21 14:35 ons gabapentin AdvReac Hallucinati Verified 12/24/21 14:35 ons artichokes Allergy Unknown Uncoded 12/24/21 14:35 cantelope Allergy Unknown Uncoded 12/24/21 14:35 shellfish Allergy Unknown Uncoded 12/24/21 14:35 Review of Systems - Constitutional Constitutional: reports: Fatigue, Weakness. denies: Fever, Chills - Eyes Eyes: denies: Pain, Vision loss - Ears, Nose & Throat Ears, Nose & Throat: denies: Sore throat - Cardiovascular Cariovascular: reports: Chest pain (Chronic), Edema (left greater than right), Exertional dyspnea, Decr. exercise tolerance. denies: Palpitations, Lightheade dness, Syncope - Respiratory Respiratory: reports: Cough, SOB at rest, SOB with exertion - Gastrointestinal Gastrointestinal: reports: Constipation, Diarrhea, Nausea, Vomiting. denies: Abdominal pain, Abdominal distention - Genitourinary Genitourinary: denies: Dysuria, Frequency, Urgency, Hematuria - Musculoskeletal Musculoskeletal: reports: Back pain (chronic) - Integumentary Integumentary: denies: Rash, Pruritis, Lesions, Dryness - Neurological Neurological: denies: Focal weakness, Headache, Dizziness - Psychiatric Psychiatric: denies: Depression, Anxiety - Endocrine Endocrine: denies: Polyuria, Polydypsia - Hematologic/Lymphatic Hematologic/Lymphatic: denies: Anemia, Bruising, Petechiae Prior Level of Functionality: Patient is dependent for activities of daily living. Her helps her with some activities. She gets around using a walker or cane. Exam - Vital Signs Vital Signs: Vital Signs x48h Temp Pulse Resp BP Pulse Ox 12/24/21 19:00 74 19 94/52 L 95 12/24/21 17:28 99 12/24/21 16:01 81 19 115/62 92 12/24/21 14:27 36.4 C L 88 14 149/97 H 98 - Physical Exam General Appearance: positive: Alert, Moderate distress Eyes Bilateral: positive: PERRL, EOMI ENT: positive: No signs of dehydration Neck: positive: No JVD, Trachea midline Respiratory: positive: Chest non-tender, No respiratory distress, Rales Cardiovascular: positive: Regular rate & rhythm, No murmur Abdomen: positive: Non-tender, No organomegaly, Nml bowel sounds, No distention. negative: Guarding, Rebound Back: positive: Nml inspection Skin: positive: Color nml, No rash, Warm, Dry Extremities: positive: Non-tender, Full ROM, Pedal edema (left 3+ , right 2+) Neurologic/Psychiatric: positive: Oriented x3, Mood/affect nml Conclusion/Plan - Problem List (1) Acute respiratory failure with hypoxia Conclusion/Plan: Etiology: Suspected secondary to pneumonia and CHF. On 2L supplemental oxygen via nasal cannula. Patient was given Lasix 40 mg IV x1 in the ED. Will continue Lasix 20 mg IV daily. Patient was given a dose of Rocephin 1 g and azithromycin 500 mg in the ED. Will continue antibiotics. (2) Congestive heart failure Conclusion/Plan: Chest x-ray showed CHF changes, underlying small infiltrate/pneumonitis cannot be excluded. BNP was 252. Troponin was 5.4. Lasix 40 mg IV x1 given in the ED. Will continue Lasix 20 mg IV daily We will continue patient's Coreg 3.125 mg p.o. twice daily, Imdur 30 mg p.o. daily Patient reports a history of an unspecified mitral valve disorder. (3) Pneumonia Conclusion/Plan: Chest x-ray showed CHF changes, underlying small infiltrate/pneumonitis cannot be excluded. Patient was given a dose of Rocephin 1 g and azithromycin 500 mg in the ED. Will continue antibiotics. (4) Mixed connective tissue disease Conclusion/Plan: On CellCept 1000 mg p.o. twice daily and prednisone 5 mg p.o. daily. (5) Fibromyalgia Conclusion/Plan: Patient has continuous subq Dilaudid pump (6) Sleep apnea Conclusion/Plan: Patient's CPAP machine was recalled and she was told it would be over a year be fore she is able to get a new one. She reports she has been sleeping on her side since. (7) Dysrhythmia Conclusion/Plan: Unspecified. Patient takes Multaq 400 mg p.o. daily. (8) Coronary artery disease Conclusion/Plan: On Coreg 3.125 mg p.o. bid Isosorbide mononitrate 30 mg p.o. daily Baby aspirin daily Atorvastatin 20 mg p.o. every afternoon (9) Hyperlipidemia Conclusion/Plan: On atorvastatin 20 mg p.o. every afternoon. - Lab Results Fish Bones: 12/24/21 14:52 12/24/21 14:52 Core Measures - Anticipated LOS I expect patient to be DC'd or transferred within 96 hours.: Yes - DVT/VTE - Prophylaxis VTE/DVT Device ordered at admit?: No VTE/DVT Prophylaxis med ordered at admit?: Yes
[2021-12-25] MEDS: SODIUM CHLORIDE FLUSH 0.9% 10 ML SYRINGE IVP SCH ×4 (01:07→23:39)
[2021-12-25 06:02] LABS: BASOPHILS # (AUTO) 0.1 10^3/uL (0.0-0.1); BASOPHILS % (AUTO) 0.9 %; EOSINOPHILS % (AUTO) 0.1 %; HCT - HEMATOCRIT 32.7 % (37.0-47.0); HGB - HEMOGLOBIN 10.2 g/dL (12.0-16.0); LYMPHOCYTES # (AUTO) 1.5 10^3/uL (1.5-3.5); LYMPHOCYTES % (AUTO) 22.6 %; MEAN CORPUSCULAR HEMOGLOBIN 32.1 pg (27.0-31.0); MEAN CORPUSCULAR HGB CONC 31.2 g/dL (32.0-36.0); MEAN CORPUSCULAR VOLUME 102.8 fL (81.0-99.0); MEAN PLATELET VOLUME 10.7 fL (7.9-10.8); MONOCYTES # (AUTO) 0.6 10^3/uL (0.0-1.0); MONOCYTES % (AUTO) 9.6 %; NEUTROPHILS # (AUTO) 4.4 10^3/uL (1.5-6.6); NEUTROPHILS % (AUTO) 66.5 %; PLT - PLATELET COUNT 247 10^3/uL (130-450); RED BLOOD COUNT 3.18 10^6/uL (4.20-5.40); RED CELL DISTRIBUTION WIDTH 14.3 % (12.0-15.0); WHITE BLOOD COUNT 6.7 x10^3/uL (4.8-10.8)
[2021-12-25 06:12] LABS: CALCIUM 9.1 mg/dL (8.5-10.3); CREATININE 0.6 mg/dL (0.4-1.0); POTASSIUM 3.5 mmol/L (3.5-5.0)
[2021-12-25] MEDS: cefTRIAXone 1 GM in SODIUM CHLORIDE 0.9% MINIBAG 100 ML IV SCH (08:35)
[2021-12-25] MEDS ORDERED: carvediloL 3.125 MG TABLET PO SCH (09:00)
[2021-12-25] MEDS ORDERED: DRONEDARONE HCL 400 MG PO SCH (09:00)
[2021-12-25] MEDS: ENOXAPARIN 40 MG/0.4 ML SYRINGE SUBQ SCH (09:23)
[2021-12-25] MEDS: FUROSEMIDE 20 MG/2 ML VIAL IVP SCH (09:23)
[2021-12-25] MEDS: oxyCODONE 5 MG TABLET PO PRN ×2 (09:35→17:02)
[2021-12-25] MEDS: ACETAMINOPHEN 325 MG TABLET PO PRN ×2 (09:35→17:02)
[2021-12-25] MEDS: ISOSORBIDE MONONITRATE ER 30 MG TABLET PO SCH (09:35)
[2021-12-25] MEDS: PANTOPRAZOLE 40 MG TABLET PO SCH ×2 (09:36→22:54)
[2021-12-25] MEDS: DULoxetine 30 MG CAPSULE PO SCH (09:36)
[2021-12-25] MEDS: LACTOBACILLUS RHAMNOSUS GG CAPSULE PO SCH (09:36)
[2021-12-25] MEDS: predniSONE 20 MG TABLET PO SCH (09:36)
[2021-12-25] MEDS: ASPIRIN EC 81 MG TABLET PO SCH (09:37)
[2021-12-25] MEDS: AZITHROMYCIN INJ 500 MG in SODIUM CHLORIDE 0.9% 250 ML IV SCH (09:41)
[2021-12-25] MEDS ORDERED: ONDANSETRON 4 MG/2 ML VIAL IVP PRN (12:46)
--- NOTE | 2021-12-25 14:17 | PHARMACY PROGRESS NOTE ---
- Best Possible Medication History Admit Date and Time: 12/24/211950 Processed by: Pharmacy Medication History completed: Yes Patient Interview: Completed Secondary Source(s): Insurance records (see addendum) As the person ultimately responsible for medication therapy, providers are able to order a medication from an existing home medication list in [facility] via the "Reconcile Routine" prior to Confirmation of that medication by applications support lead. Such practice is discouraged except when the physician, in their clinical judgment, deems that a medical need exists for a medication without regard to previous use.
--- NOTE | 2021-12-25 15:35 | PROVIDER PROGRESS NOTE ---
Assessment/Plan - Problem List (1) Acute respiratory failure with hypoxia Assessment/Plan: Suspected to be secondary to pneumonia and CHF. She is on 2L>> 0.5L of supplemental oxygen via nasal cannula. We are treating both the CHF and pneumomnia (2) Acute on chronic diastolic heart failure Conclusion/Plan: Chest x-ray showed CHF changes, plus underlying small infiltrate/pneumonitis cannot be excluded. Her leg edema has already resolved and FIO2 is decreasing. BNP was 252, which is the highest she has ever had here. Troponin was normal at 5.4. Lasix 40 mg IV x1 given in the ED. We are continuing Lasix 20 mg IV daily We will continue patient's Coreg twice daily and Imdur 30 mg p.o. daily. Patient has Dr Dodd, Leaf Sorter at [place], gets Echos routinely and reports a history of mitral valve regurg. Her last Echo done here was done in 06/2018. As a Board-certified Leaf Sorter, credentialed to do and interpret Echos, I performed a bedside Echo on this patient. The Echo showed: Normal LA and RA sizes. Normal aortic root diameter. Normal LV size and wall thickness, low-normal LV contractility, EF 50%. Diastolic dysfunction Grade 1 by Doppler. Normal RV size and probably normal RV function. Mitral annulus calcified. Doppler of the valves shows trace AI and TR, moderate MR. Her PA pressure could not be measured from the TR jet. No pericardial effusion and no obvious pericardial thickening. (3) Community acquired pneumonia Conclusion/Plan: Chest x-ray showed CHF changes, plus an underlying small infiltrate/pneumonitis cannot be excluded. She was coughing and producing green sputum, therefore a pneumonia is likely present. No blood or sputum culture was sent (?) Patient is getting empiric Rocephin and azithromycin Will add probiotic (4) N/V She describes longstanding N/V, especially if she has no food for a long time. Pt is requesting Zofran and takes Zofran TL prn at home. (5) Mixed connective tissue disease Conclusion/Plan: She reports that it is a type of Lupus vs Sjogren's and she had ILD diagnosed by lung biopsy. 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 She has never needed home O2. She is followed by a Installation Superintendent in [place]. She is on CellCept 1000 mg p.o. twice daily and prednisone 5 mg p.o. daily at [facility]. We are continuing her steroid while here, dose is 20 mg, higher being a stress dose. (6) Fibromyalgia Conclusion/Plan: She had multiple back and neck spine surgeries and has pain in many bones and joints. Patient has continuous subq Dilaudid pump and also is requesting Oxycodone po for pain in many joints. (7) Sleep apnea Conclusion/Plan: Patient's CPAP machine was recalled and she was told it would be over a year before she is able to get a new one. She reports she has been sleeping on her side since. (8) Hx of Afib Conclusion/Plan: Patient takes Multaq 400 mg p.o. daily, therefore likely she had Afib, she herself did not know her dysrhythmia diagnosis at admission Multaq is not on formulary here, we could order her own med, however, Multaq is contraindicated when a CHF exacerbation develops, thus it is on hold currently. Her telemetry shows NSR with 1st degree AV block. Wwe will continue her 2 baby aspirin daily dose Continue telemetry. (9) Coronary artery disease Conclusion/Plan: She is on Coreg 6.25mg p.o. bid and Isosorbide mononitrate 30 mg p.o. daily and 2 Baby aspirin daily and Atorvastatin 20 mg p.o. every evening. Will continue these. (10) Hyperlipidemia Conclusion/Plan: She is on atorvastatin 20 mg p.o. every evening, to be continued here. - Current Meds Current Meds: Current Medications Generic Name Dose Route Start Last Admin Trade Name Rico PRN Reason Stop Dose Admin Acetaminophen 650 mg 12/24/21 19:51 12/25/21 09:35 Acetaminophen 325 Mg Tablet PO 650 mg Q4HR PRN Administration Pain 1 to 4, or Fever Aspirin 162 mg 12/25/21 09:00 12/25/21 09:37 Aspirin Ec 81 Mg Tablet PO 162 mg DAILY YONY Administration Duloxetine HCl 60 mg 12/25/21 09:00 12/25/21 09:36 Duloxetine 30 Mg Capsule PO 60 mg DAILY YONY Administration Enoxaparin Sodium 40 mg 12/25/21 09:00 12/25/21 09:23 Enoxaparin 40 Mg/0.4 Ml Syringe SUBQ 40 mg DAILY YONY Administration Furosemide 20 mg 12/25/21 09:00 12/25/21 09:23 Furosemide 20 Mg/2 Ml Vial IVP 20 mg DAILY YONY Administration Ceftriaxone Sodium 1 gm/ 100 mls @ 200 mls/hr 12/25/21 09:00 12/25/21 09:05 Sodium Chloride IV Infused DAILY YONY Infusion Azithromycin 500 mg/ Sodium 250 mls @ 250 mls/hr 12/25/21 09:00 12/25/21 10:43 Chloride IV 12/26/21 09:59 Infused DAILY YONY Infusion Isosorbide Mononitrate 30 mg 12/25/21 09:00 12/25/21 09:35 Isosorbide Mononitrate Er 30 Mg Tablet PO 30 mg DAILY YONY Administration Lactobacillus Rhamnosus 1 cap 12/25/21 09:00 12/25/21 09:36 Lactobacillus Rhamnosus Gg Capsule PO 1 cap DAILY YONY Administration Oxycodone HCl 5 mg 12/25/21 08:19 12/25/21 09:35 Oxycodone 5 Mg Tablet PO 5 mg Q8HR PRN Administration PAIN 5-7 Pantoprazole Sodium 40 mg 12/25/21 09:00 12/25/21 09:36 Pantoprazole 40 Mg Tablet PO 40 mg BID YONY Administration Prednisone 20 mg 12/25/21 09:00 12/25/21 09:36 Prednisone 20 Mg Tablet PO 20 mg DAILYWM YONY Administration Sodium Chloride 10 ml 12/25/21 01:00 12/25/21 08:42 Sodium Chloride Flush 0.9% 10 Ml Syringe IVP 10 ml 0100,0900,1700 YONY Administration - Lab Result Fish Bone Diagrams: 12/25/21 05:00 12/25/21 05:00 - Additional Planning My Orders: My Active Orders 12/25/21 08:16 traZODone [Desyrel] 50 mg PO QPM PRN 12/25/21 08:19 oxyCODONE [Roxicodone] 5 mg PO Q8HR PRN 12/25/21 09:00 Aspirin EC [Ecotrin] 162 mg PO DAILY DULoxetine [Cymbalta] 60 mg PO DAILY Isosorbide Mononitrate ER [Imdur] 30 mg PO DAILY Lactobacillus Rhamnosus GG [Culturelle] 1 cap PO DAILY Pantoprazole [Protonix] 40 mg PO BID predniSONE [Deltasone] 20 mg PO DAILYWM 12/25/21 Lunch DIET [Low Sodium Diet] [DIET] 12/25/21 12:46 Ondansetron Inj [Zofran Inj] 4 mg IVP Q6HR PRN 12/25/21 Dinner DIET [Soft (Low Fiber) Diet] [DIET] 12/25/21 21:00 Atorvastatin [Lipitor] 20 mg PO QPM Potassium Chloride [Micro-K] 10 meq PO BID carvediloL [Coreg] 6.25 mg PO BID 12/26/21 05:00 BNP - B-NATRIURETIC PEPTIDE [IAI] DAILYLAB MAGNESIUM [CHEM] DAILYLAB 12/26/21 09:00 Calcium Carb (Oyster Shell) [Oysco-500] 500 mg PO DAILY Magnesium [Magnesium] 250 mg PO DAILY Subjective - Subjective Patient Reports: Feeling Better, Nausea, Other (Coughing up green sputum) Objective Vital Signs: Vital Signs - 24 hr 12/24/21 12/24/21 12/24/21 16:01 17:28 19:00 Temperature Heart Rate 81 74 Heart Rate [ Brachial] Heart Rate [ Monitoring electrodes] Respiratory 19 19 Rate Blood Pressure 115/62 94/52 L Blood Pressure [Left Brachial artery] O2 Saturation 92 99 95 12/24/21 12/25/21 12/25/21 20:44 00:27 05:12 Temperature 36.6 C 36.5 C 36.5 C Heart Rate Heart Rate [ 75 81 Brachial] Heart Rate [ 74 Monitoring electrodes] Respiratory 21 20 20 Rate Blood Pressure Blood Pressure 112/45 L 95/53 L 137/69 H [Left Brachial artery] O2 Saturation 91 L 95 92 12/25/21 12/25/21 07:30 11:52 Temperature 36.5 C 36.4 C L Heart Rate Heart Rate [ 79 81 Brachial] Heart Rate [ Monitoring electrodes] Respiratory 19 20 Rate Blood Pressure Blood Pressure 107/52 L 100/58 L [Left Brachial artery] O2 Saturation 91 L 92 Oxygen O2 Source Nasal cannula I&O (Last 24 Hrs): Intake and Output Totals x24h 12/23/21 12/24/21 12/25/21 23:59 23:59 23:59 Intake Total 350 860 Output Total 2300 800 Balance -1950 60 General: Alert, Oriented x3, Other (Alopecia and ;pallor) HEENT: Atraumatic, EOMI, Mucous membr. moist/pink Neck: Supple, No JVD Neuro: Alert, Non Focal Cardiovascular: Regular rate, Other (1/6 syst murmur at LLSB) Abdomen: Normal bowel sounds, Soft, No tenderness Extremities: No clubbing, No edema, Other (venous stasis changes present of L godinez, tender to touch both shins and both ankle bones) - Results Results: Laboratory Results WBC 6.7 x10^3/uL (4.8-10.8) 12/25/21 05:00 RBC 3.18 10^6/uL (4.20-5.40) L 12/25/21 05:00 Hgb 10.2 g/dL (12.0-16.0) L 12/25/21 05:00 Hct 32.7 % (37.0-47.0) L 12/25/21 05:00 MCV 102.8 fL (81.0-99.0) H 12/25/21 05:00 MCH 32.1 pg (27.0-31.0) H 12/25/21 05:00 MCHC 31.2 g/dL (32.0-36.0) L 12/25/21 05:00 RDW 14.3 % (12.0-15.0) 12/25/21 05:00 Plt Count 247 10^3/uL (130-450) 12/25/21 05:00 MPV 10.7 fL (7.9-10.8) 12/25/21 05:00 Neut # (Auto) 4.4 10^3/uL (1.5-6.6) 12/25/21 05:00 Lymph # (Auto) 1.5 10^3/uL (1.5-3.5) 12/25/21 05:00 Rice # (Auto) 0.6 10^3/uL (0.0-1.0) 12/25/21 05:00 Eos # (Auto) 0.0 10^3/uL (0.0-0.7) 12/25/21 05:00 Baso # (Auto) 0.1 10^3/uL (0.0-0.1) 12/25/21 05:00 Absolute Nucleated RBC 0.00 x10^3/uL 12/25/21 05:00 Nucleated RBC % 0.0 /100WBC 12/25/21 05:00 Sodium 141 mmol/L (135-145) 12/25/21 05:00 Potassium 3.5 mmol/L (3.5-5.0) 12/25/21 05:00 Chloride 104 mmol/L (101-111) 12/25/21 05:00 Carbon Dioxide 29 mmol/L (21-32) 12/25/21 05:00 Anion Gap 8.0 (6-13) 12/25/21 05:00 BUN 16 mg/dL (6-20) 12/25/21 05:00 Creatinine 0.6 mg/dL (0.4-1.0) 12/25/21 05:00 Estimated GFR (MDRD) 97 (>89) 12/25/21 05:00 Glucose 107 mg/dL (70-100) H 12/25/21 05:00 Calcium 9.1 mg/dL (8.5-10.3) 12/25/21 05:00 Magnesium 2.2 mg/dL (1.7-2.8) 12/25/21 05:00 Total Bilirubin 0.4 mg/dL (0.2-1.0) 12/24/21 14:52 AST 25 IU/L (10-42) 12/24/21 14:52 ALT 18 IU/L (10-60) 12/24/21 14:52 Alkaline Phosphatase 64 IU/L (42-121) 12/24/21 14:52 Troponin I High Sens 5.4 ng/L (2.3-14.8) 12/24/21 14:52 B-Natriuretic Peptide 564 pg/mL (5-100) H 12/25/21 05:00 Total Protein 6.8 g/dL (6.7-8.2) 12/24/21 14:52 Albumin 3.9 g/dL (3.2-5.5) 12/24/21 14:52 Globulin 2.9 g/dL (2.1-4.2) 12/24/21 14:52 Albumin/Globulin Ratio 1.3 (1.0-2.2) 12/24/21 14:52 Lipase 23 U/L (22-51) 12/24/21 14:52 Vitamin B12 1496 pg/mL (180-914) H 12/25/21 05:00 Folate 37.00 ng/mL (5.90 - >24.8) 12/25/21 05:00 Nasal Adenovirus (PCR) NOT DETECTED 12/24/21 17:43 Nasal B. parapertussis DNA (PCR) NOT DETECTED 12/24/21 17:43 Nasal Coronavir 229E PCR NOT DETECTED 12/24/21 17:43 Nasal Coronavir HKU1 PCR NOT DETECTED 12/24/21 17:43 Nasal Coronavir NL63 PCR NOT DETECTED 12/24/21 17:43 Nasal Coronavir OC43 PCR NOT DETECTED 12/24/21 17:43 Nasal Enterovir/Rhinovir PCR NOT DETECTED 12/24/21 17:43 Nasal Influenza B PCR NOT DETECTED 12/24/21 17:43 Nasal Influenza A PCR NOT DETECTED 12/24/21 17:43 Nasal Parainfluen 1 PCR NOT DETECTED 12/24/21 17:43 Nasal Parainfluen 2 PCR NOT DETECTED 12/24/21 17:43 Nasal Parainfluen 3 PCR NOT DETECTED 12/24/21 17:43 Nasal Parainfluen 4 PCR NOT DETECTED 12/24/21 17:43 Nasal RSV (PCR) NOT DETECTED 12/24/21 17:43 Nasal B.pertussis DNA PCR NOT DETECTED 12/24/21 17:43 Nasal C.pneumoniae (PCR) NOT DETECTED 12/24/21 17:43 Stephan Human Metapneumo PCR NOT DETECTED 12/24/21 17:43 Nasal M.pneumoniae (PCR) NOT DETECTED 12/24/21 17:43 Nasal SARS-CoV-2 (PCR) NOT DETECTED 12/24/21 17:43 - Procedures Procedures: Procedures CATARAC PHACOEMULS/ASPIR (07/10/14) INSERT LENS AT CATAR EXT (07/10/14) INSERTION OF INFUSION DEV INTO SUP VENA CAVA, PERC APPROACH (08/08/15) INSPECTION OF LOWER INTESTINAL TRACT, ENDO (06/11/19) REPOSITION R UP FEMUR WITH INTRAMED FIX, PERC APPROACH (06/14/18) ULTRASONOGRAPHY OF SUPERIOR VENA CAVA, GUIDANCE (08/08/15)
[2021-12-25] MEDS ORDERED: ATORVASTATIN CALCIUM 20 MG PO SCH (21:00)
[2021-12-25] MEDS: POTASSIUM CHLORIDE 10 MEQ CAPSULE PO SCH (22:54)
[2021-12-25] MEDS: carvediloL 3.125 MG TABLET PO SCH (22:54)
[2021-12-25] MEDS: ATORVASTATIN 40 MG TABLET PO SCH (22:54)
[2021-12-25] MEDS: traZODone 50 MG TABLET PO PRN (23:39)
[2021-12-26 06:03] LABS: BASOPHILS # (AUTO) 0.1 10^3/uL (0.0-0.1); EOSINOPHILS # (AUTO) 0.1 10^3/uL (0.0-0.7); EOSINOPHILS % (AUTO) 1.2 %; HCT - HEMATOCRIT 34.1 % (37.0-47.0); HGB - HEMOGLOBIN 10.5 g/dL (12.0-16.0); LYMPHOCYTES # (AUTO) 1.8 10^3/uL (1.5-3.5); LYMPHOCYTES % (AUTO) 23.7 %; MEAN CORPUSCULAR HEMOGLOBIN 32.1 pg (27.0-31.0); MEAN CORPUSCULAR HGB CONC 30.8 g/dL (32.0-36.0); MEAN CORPUSCULAR VOLUME 104.3 fL (81.0-99.0); MEAN PLATELET VOLUME 10.5 fL (7.9-10.8); MONOCYTES # (AUTO) 0.7 10^3/uL (0.0-1.0); MONOCYTES % (AUTO) 8.9 %; NEUTROPHILS % (AUTO) 64.9 %; PLT - PLATELET COUNT 258 10^3/uL (130-450); RED BLOOD COUNT 3.27 10^6/uL (4.20-5.40); RED CELL DISTRIBUTION WIDTH 14.4 % (12.0-15.0); WHITE BLOOD COUNT 7.7 x10^3/uL (4.8-10.8)
[2021-12-26 06:12] LABS: CALCIUM 9.6 mg/dL (8.5-10.3); CREATININE 0.6 mg/dL (0.4-1.0); MAGNESIUM 2.1 mg/dL (1.7-2.8); POTASSIUM 3.8 mmol/L (3.5-5.0)
[2021-12-26] MEDS: oxyCODONE 5 MG TABLET PO PRN ×2 (08:21→16:55)
[2021-12-26] MEDS: ACETAMINOPHEN 325 MG TABLET PO PRN ×2 (08:21→16:56)
[2021-12-26] MEDS: SODIUM CHLORIDE FLUSH 0.9% 10 ML SYRINGE IVP SCH ×2 (08:22→17:15)
[2021-12-26] MEDS: FUROSEMIDE 20 MG/2 ML VIAL IVP SCH (08:22)
[2021-12-26] MEDS: LACTOBACILLUS RHAMNOSUS GG CAPSULE PO SCH (08:22)
[2021-12-26] MEDS: DULoxetine 30 MG CAPSULE PO SCH (08:23)
[2021-12-26] MEDS: ASPIRIN EC 81 MG TABLET PO SCH (08:23)
[2021-12-26] MEDS: carvediloL 3.125 MG TABLET PO SCH ×2 (08:23→21:40)
[2021-12-26] MEDS: PANTOPRAZOLE 40 MG TABLET PO SCH ×2 (08:23→21:40)
[2021-12-26] MEDS: CALCIUM CARB (OYSTER SHELL) 500 MG TABLET PO SCH (08:23)
[2021-12-26] MEDS: CHOLECALCIFEROL 400 UNIT TABLET PO SCH (08:23)
[2021-12-26] MEDS: ISOSORBIDE MONONITRATE ER 30 MG TABLET PO SCH (08:23)
[2021-12-26] MEDS: predniSONE 20 MG TABLET PO SCH (08:23)
[2021-12-26] MEDS: POTASSIUM CHLORIDE 10 MEQ CAPSULE PO SCH ×2 (08:24→21:40)
[2021-12-26] MEDS: ENOXAPARIN 40 MG/0.4 ML SYRINGE SUBQ SCH (08:28)
[2021-12-26] MEDS: cefTRIAXone 1 GM in SODIUM CHLORIDE 0.9% MINIBAG 100 ML IV SCH (08:42)
[2021-12-26] MEDS ORDERED: NON FORMULARY MED (Magnesium [Magnesium] 250 MG Tablet) PO SCH (09:00)
[2021-12-26] MEDS: AZITHROMYCIN INJ 500 MG in SODIUM CHLORIDE 0.9% 250 ML IV SCH (09:26)
[2021-12-26] MEDS ORDERED: SODIUM CHLORIDE 0.9% 500 ML IV ONE (10:35)
[2021-12-26] MEDS: SODIUM CHLORIDE FLUSH 0.9% 10 ML SYRINGE IVP PRN (10:48)
--- NOTE | 2021-12-26 16:11 | PROVIDER PROGRESS NOTE ---
Assessment/Plan - Problem List (1) Orthostatic hypotension Assessment/Plan: This morning her blood pressure was low, orthostatic checks were very abnormal. She was dizzy just going from supine to sitting. She did receive her IV Lasix this morning. No more Lasix will be given. (At home she uses po Lasix only prn edema) A bolus of saline 500 cc will be given. She is not yet ready for discharge because of this. (2) Acute respiratory failure with hypoxia Conclusion/Plan: Suspected to be secondary to pneumonia and CHF. She is on 2L>> 0.5L of supplemental oxygen via nasal cannula. We are treating both the CHF and pneumomnia (3) Acute on chronic diastolic heart failure Conclusion/Plan: Patient has Dr Dodd, [facility] at [place], gets Echos routinely and reports a history of mitral valve regurg. Her last Echo done here was done in 06/2018, then was done at bedside yesterday and showed similar good LVEF with diastolic dysfunction present and moderate MR. Chest x-ray showed CHF at admission. BNP was 252, which is the highest she has ever had here. Her leg edema has already resolved and FIO2 is improving She improved with iv Lasix, which will be stopped after this a.m. dose, due to her hypotension. We will continue patient's Coreg twice daily and Imdur daily. (4) Community acquired pneumonia Conclusion/Plan: Chest x-ray showed CHF changes, plus an underlying small infiltrate. She was coughing and producing green sputum, therefore a pneumonia is present. No blood or sputum culture was sent at admission (?) Patient is getting empiric Rocephin and azithromycin We added a probiotic (5) N/V She describes longstanding N/V, especially if she has no food for a long time. Pt is requesting Zofran and takes Zofran TL prn at home. (6) Mixed connective tissue disease Conclusion/Plan: She reports that it is a type of Lupus vs Sjogren's and she had ILD diagnosed by lung biopsy. 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 She has never needed home O2. She is followed by a Fitness Manager in [place]. She is on CellCept 1000 mg p.o. twice daily and prednisone 5 mg p.o. daily at home. We are continuing her steroid while here, dose is 20 mg, higher being a brief stress dose. (7) Fibromyalgia Conclusion/Plan: She had multiple back and neck spine surgeries and has pain in many bones and joints. Patient has continuous subq Dilaudid pump and also is requesting Oxycodone po for pain in many joints. (8) Sleep apnea Conclusion/Plan: Patient's CPAP machine was recalled and she was told it would be over a year before she is able to get a new one. She reports she has been sleeping on her side since then and was even retested and was not hypoxic at night sleeping on her side, she said. (9) Hx of Afib Conclusion/Plan: Patient takes Multaq 400 mg p.o. daily, likely she had Afib, but she herself did not know her dysrhythmia diagnosis at admission Multaq is not on formulary here, we could order her own med, however, Multaq is contraindicated when a CHF exacerbation develops, thus it is on hold currently. Her telemetry shows NSR with 1st degree AV block. We are continuing her 2 baby aspirin daily dose Continue telemetry. (10) Coronary artery disease Conclusion/Plan: She is on Coreg 6.25mg p.o. bid and Isosorbide mononitrate 30 mg p.o. daily and 2 Baby aspirin daily and Atorvastatin 20 mg p.o. every evening. Today, because of hypotension, the Coreg dose and Imdur dose were decreased in half (11) Hyperlipidemia Conclusion/Plan: She is on atorvastatin 20 mg p.o. every evening, which is being continued here. - Current Meds Current Meds: Current Medications Generic Name Dose Route Start Last Admin Trade Name Rico PRN Reason Stop Dose Admin Acetaminophen 650 mg 12/24/21 19:51 12/26/21 08:21 Acetaminophen 325 Mg Tablet PO 650 mg Q4HR PRN Administration Pain 1 to 4, or Fever Aspirin 162 mg 12/25/21 09:00 12/26/21 08:23 Aspirin Ec 81 Mg Tablet PO 162 mg DAILY YONY Administration Atorvastatin Calcium 20 mg 12/25/21 21:00 12/25/21 22:54 Atorvastatin 40 Mg Tablet PO 20 mg QPM YONY Administration Calcium Carbonate/Glycine 500 mg 12/26/21 09:00 12/26/21 08:23 Calcium Carb (Oyster Shell) 500 Mg Tablet PO 500 mg DAILY YONY Administration Carvedilol 6.25 mg 12/25/21 21:00 12/26/21 08:23 Carvedilol 3.125 Mg Tablet PO 6.25 mg BID YONY Administration Cholecalciferol 400 unit 12/26/21 09:00 12/26/21 08:23 Cholecalciferol 400 Unit Tablet PO 400 unit DAILY YONY Administration Duloxetine HCl 60 mg 12/25/21 09:00 12/26/21 08:23 Duloxetine 30 Mg Capsule PO 60 mg DAILY YONY Administration Enoxaparin Sodium 40 mg 12/25/21 09:00 12/26/21 08:28 Enoxaparin 40 Mg/0.4 Ml Syringe SUBQ 40 mg DAILY YONY Administration Ceftriaxone Sodium 1 gm/ 100 mls @ 200 mls/hr 12/25/21 09:00 12/26/21 09:23 Sodium Chloride IV Infused DAILY YONY Infusion Lactobacillus Rhamnosus 1 cap 12/25/21 09:00 12/26/21 08:22 Lactobacillus Rhamnosus Gg Capsule PO 1 cap DAILY YONY Administration Ondansetron HCl 4 mg 12/25/21 12:46 12/26/21 10:48 Ondansetron 4 Mg/2 Ml Vial IVP 4 mg Q6HR PRN Administration Nausea / Vomiting Oxycodone HCl 5 mg 12/25/21 08:19 12/26/21 08:21 Oxycodone 5 Mg Tablet PO 5 mg Q8HR PRN Administration PAIN 5-7 Pantoprazole Sodium 40 mg 12/25/21 09:00 12/26/21 08:23 Pantoprazole 40 Mg Tablet PO 40 mg BID YONY Administration Potassium Chloride 10 meq 12/25/21 21:00 12/26/21 08:24 Potassium Chloride 10 Meq Capsule PO 10 meq BID YONY Administration Prednisone 20 mg 12/25/21 09:00 12/26/21 08:23 Prednisone 20 Mg Tablet PO 20 mg DAILYWM YONY Administration Sodium Chloride 10 ml 12/24/21 19:51 12/26/21 10:48 Sodium Chloride Flush 0.9% 10 Ml Syringe IVP 10 ml PRN PRN Administration NEEDED PER PROVIDER ORDERS Sodium Chloride 10 ml 12/25/21 01:00 12/26/21 08:22 Sodium Chloride Flush 0.9% 10 Ml Syringe IVP 10 ml 0100,0900,1700 YONY Administration Trazodone HCl 50 mg 12/25/21 08:16 12/25/21 23:39 Trazodone 50 Mg Tablet PO 50 mg QPM PRN Administration Insomnia - Lab Result Fish Bone Diagrams: 12/27/21 06:27 12/27/21 06:27 - Additional Planning My Orders: My Active Orders 12/25/21 Dinner DIET [Soft (Low Fiber) Diet] [DIET] 12/25/21 21:00 Atorvastatin [Lipitor] 20 mg PO QPM Potassium Chloride [Micro-K] 10 meq PO BID carvediloL [Coreg] 6.25 mg PO BID 12/26/21 08:25 Oxygen Desat. Study w/Exercise [RC] .ONCE 12/26/21 09:00 Calcium Carb (Oyster Shell) [Oysco-500] 500 mg PO DAILY Cholecalciferol [Vitamin D3] 400 unit PO DAILY 12/27/21 09:00 Azithromycin Inj [Zithromax Inj] 500 mg Sodium Chloride 0.9% [Normal Saline 0.9%] 250 ml IV ONCE Isosorbide Mononitrate ER [Imdur] 15 mg PO DAILY Subjective - Subjective Patient Reports: Dizzines (She sat up from supine position to start to do her exercise oximetry walk test and became very dizzy. Blood pressure dropped to 88 systolic. She had just received her IV Lasix dose this morning and is already negative in fluid balance from the previous Lasix.), Other (Cough is slightly better. She is not short of breath at rest, but wearing suppl O2 via n.c.) Objective Vital Signs: Vital Signs - 24 hr 12/25/21 12/25/21 12/25/21 16:26 20:05 22:48 Temperature 36.7 C 36.4 C L 36.7 C Heart Rate [ 83 75 75 Brachial] Heart Rate [ Monitoring electrodes] Respiratory 18 18 18 Rate Blood Pressure 110/48 L 113/50 L [Left Brachial artery] Blood Pressure [Right Brachial artery] Blood Pressure 137/78 H [Right Radial artery] O2 Saturation 91 L 92 92 12/25/21 12/26/21 12/26/21 23:44 05:50 08:10 Temperature 36.5 C 36.7 C Heart Rate [ 82 75 71 Brachial] Heart Rate [ Monitoring electrodes] Respiratory 16 16 16 Rate Blood Pressure [Left Brachial artery] Blood Pressure [Right Brachial artery] Blood Pressure 142/67 H 122/49 L 126/52 L [Right Radial artery] O2 Saturation 97 93 95 12/26/21 12/26/21 12/26/21 09:29 09:30 13:13 Temperature 36.5 C Heart Rate [ 71 Brachial] Heart Rate [ 82 Monitoring electrodes] Respiratory 20 Rate Blood Pressure [Left Brachial artery] Blood Pressure 107/52 L [Right Brachial artery] Blood Pressure 102/47 L [Right Radial artery] O2 Saturation 88 L 92 93 Oxygen O2 Source Nasal cannula I&O (Last 24 Hrs): Intake and Output Totals x24h 12/24/21 12/25/21 12/26/21 23:59 23:59 23:59 Intake Total 350 1200 1440 Output Total 2300 1300 1100 Balance -1950 -100 340 General: Alert, Oriented x3, Other (Thin, pale and appears tired) HEENT: Mucous membr. moist/pink Neck: Supple, No JVD Neuro: Alert, Non Focal Cardiovascular: Regular rate, No murmurs Respiratory: Rhonchi (L posterior base) Abdomen: Normal bowel sounds, Soft Extremities: No clubbing, No edema, Other (Tender over many spots on her lower extremities and hands (chronically), L godinez has venous stasis changes) - Results Results: Laboratory Results WBC 7.7 x10^3/uL (4.8-10.8) 12/26/21 05:40 RBC 3.27 10^6/uL (4.20-5.40) L 12/26/21 05:40 Hgb 10.5 g/dL (12.0-16.0) L 12/26/21 05:40 Hct 34.1 % (37.0-47.0) L 12/26/21 05:40 MCV 104.3 fL (81.0-99.0) H 12/26/21 05:40 MCH 32.1 pg (27.0-31.0) H 12/26/21 05:40 MCHC 30.8 g/dL (32.0-36.0) L 12/26/21 05:40 RDW 14.4 % (12.0-15.0) 12/26/21 05:40 Plt Count 258 10^3/uL (130-450) 12/26/21 05:40 MPV 10.5 fL (7.9-10.8) 12/26/21 05:40 Neut # (Auto) 5.0 10^3/uL (1.5-6.6) 12/26/21 05:40 Lymph # (Auto) 1.8 10^3/uL (1.5-3.5) 12/26/21 05:40 [place] # (Auto) 0.7 10^3/uL (0.0-1.0) 12/26/21 05:40 Eos # (Auto) 0.1 10^3/uL (0.0-0.7) 12/26/21 05:40 Baso # (Auto) 0.1 10^3/uL (0.0-0.1) 12/26/21 05:40 Absolute Nucleated RBC 0.00 x10^3/uL 12/26/21 05:40 Nucleated RBC % 0.0 /100WBC 12/26/21 05:40 Sodium 143 mmol/L (135-145) 12/26/21 05:40 Potassium 3.8 mmol/L (3.5-5.0) 12/26/21 05:40 Chloride 104 mmol/L (101-111) 12/26/21 05:40 Carbon Dioxide 30 mmol/L (21-32) 12/26/21 05:40 Anion Gap 9.0 (6-13) 12/26/21 05:40 BUN 16 mg/dL (6-20) 12/26/21 05:40 Creatinine 0.6 mg/dL (0.4-1.0) 12/26/21 05:40 Estimated GFR (MDRD) 97 (>89) 12/26/21 05:40 Glucose 105 mg/dL (70-100) H 12/26/21 05:40 Calcium 9.6 mg/dL (8.5-10.3) 12/26/21 05:40 Magnesium 2.1 mg/dL (1.7-2.8) 12/26/21 05:40 Total Bilirubin 0.4 mg/dL (0.2-1.0) 12/24/21 14:52 AST 25 IU/L (10-42) 12/24/21 14:52 ALT 18 IU/L (10-60) 12/24/21 14:52 Alkaline Phosphatase 64 IU/L (42-121) 12/24/21 14:52 Troponin I High Sens 5.4 ng/L (2.3-14.8) 12/24/21 14:52 B-Natriuretic Peptide 653 pg/mL (5-100) H 12/26/21 05:40 Total Protein 6.8 g/dL (6.7-8.2) 12/24/21 14:52 Albumin 3.9 g/dL (3.2-5.5) 12/24/21 14:52 Globulin 2.9 g/dL (2.1-4.2) 12/24/21 14:52 Albumin/Globulin Ratio 1.3 (1.0-2.2) 12/24/21 14:52 Lipase 23 U/L (22-51) 12/24/21 14:52 Vitamin B12 1496 pg/mL (180-914) H 12/25/21 05:00 Folate 37.00 ng/mL (5.90 - >24.8) 12/25/21 05:00 Nasal Adenovirus (PCR) NOT DETECTED 12/24/21 17:43 Nasal B. parapertussis DNA (PCR) NOT DETECTED 12/24/21 17:43 Nasal Coronavir 229E PCR NOT DETECTED 12/24/21 17:43 Nasal Coronavir HKU1 PCR NOT DETECTED 12/24/21 17:43 Nasal Coronavir NL63 PCR NOT DETECTED 12/24/21 17:43 Nasal Coronavir OC43 PCR NOT DETECTED 12/24/21 17:43 Nasal Enterovir/Rhinovir PCR NOT DETECTED 12/24/21 17:43 Nasal Influenza B PCR NOT DETECTED 12/24/21 17:43 Nasal Influenza A PCR NOT DETECTED 12/24/21 17:43 Nasal Parainfluen 1 PCR NOT DETECTED 12/24/21 17:43 Nasal Parainfluen 2 PCR NOT DETECTED 12/24/21 17:43 Nasal Parainfluen 3 PCR NOT DETECTED 12/24/21 17:43 Nasal Parainfluen 4 PCR NOT DETECTED 12/24/21 17:43 Nasal RSV (PCR) NOT DETECTED 12/24/21 17:43 Nasal B.pertussis DNA PCR NOT DETECTED 12/24/21 17:43 Nasal C.pneumoniae (PCR) NOT DETECTED 12/24/21 17:43 Stephan Human Metapneumo PCR NOT DETECTED 12/24/21 17:43 Nasal M.pneumoniae (PCR) NOT DETECTED 12/24/21 17:43 Nasal SARS-CoV-2 (PCR) NOT DETECTED 12/24/21 17:43 - Procedures Procedures: Procedures CATARAC PHACOEMULS/ASPIR (07/10/14) INSERT LENS AT CATAR EXT (07/10/14) INSERTION OF INFUSION DEV INTO SUP VENA CAVA, PERC APPROACH (08/08/15) INSPECTION OF LOWER INTESTINAL TRACT, ENDO (06/11/19) REPOSITION R UP FEMUR WITH INTRAMED FIX, PERC APPROACH (06/14/18) ULTRASONOGRAPHY OF SUPERIOR VENA CAVA, GUIDANCE (08/08/15)
[2021-12-26] MEDS: ATORVASTATIN 40 MG TABLET PO SCH (21:40)
[2021-12-27] MEDS: traZODone 50 MG TABLET PO PRN (00:03)
[2021-12-27] MEDS: SODIUM CHLORIDE FLUSH 0.9% 10 ML SYRINGE IVP SCH ×2 (00:07→08:44)
[2021-12-27] MEDS: ACETAMINOPHEN 325 MG TABLET PO PRN ×2 (00:13→09:11)
[2021-12-27 06:45] LABS: BASOPHILS # (AUTO) 0.1 10^3/uL (0.0-0.1); BASOPHILS % (AUTO) 1.3 %; EOSINOPHILS # (AUTO) 0.1 10^3/uL (0.0-0.7); EOSINOPHILS % (AUTO) 1.6 %; HCT - HEMATOCRIT 35.1 % (37.0-47.0); HGB - HEMOGLOBIN 10.7 g/dL (12.0-16.0); LYMPHOCYTES % (AUTO) 25.7 %; MEAN CORPUSCULAR HEMOGLOBIN 32.1 pg (27.0-31.0); MEAN CORPUSCULAR HGB CONC 30.5 g/dL (32.0-36.0); MEAN CORPUSCULAR VOLUME 105.4 fL (81.0-99.0); MEAN PLATELET VOLUME 10.3 fL (7.9-10.8); MONOCYTES # (AUTO) 0.7 10^3/uL (0.0-1.0); MONOCYTES % (AUTO) 9.3 %; NEUTROPHILS # (AUTO) 4.7 10^3/uL (1.5-6.6); NEUTROPHILS % (AUTO) 61.2 %; PLT - PLATELET COUNT 266 10^3/uL (130-450); RED BLOOD COUNT 3.33 10^6/uL (4.20-5.40); RED CELL DISTRIBUTION WIDTH 14.5 % (12.0-15.0); WHITE BLOOD COUNT 7.6 x10^3/uL (4.8-10.8)
[2021-12-27 07:01] LABS: CALCIUM 9.6 mg/dL (8.5-10.3); CREATININE 0.6 mg/dL (0.4-1.0)
[2021-12-27] MEDS: ASPIRIN EC 81 MG TABLET PO SCH (08:45)
[2021-12-27] MEDS: PANTOPRAZOLE 40 MG TABLET PO SCH (08:45)
[2021-12-27] MEDS: DULoxetine 30 MG CAPSULE PO SCH (08:45)
[2021-12-27] MEDS: POTASSIUM CHLORIDE 10 MEQ CAPSULE PO SCH (08:46)
[2021-12-27] MEDS: carvediloL 3.125 MG TABLET PO SCH (08:46)
[2021-12-27] MEDS: CHOLECALCIFEROL 400 UNIT TABLET PO SCH (08:46)
[2021-12-27] MEDS: CALCIUM CARB (OYSTER SHELL) 500 MG TABLET PO SCH (08:46)
[2021-12-27] MEDS: ENOXAPARIN 40 MG/0.4 ML SYRINGE SUBQ SCH (08:46)
[2021-12-27] MEDS: predniSONE 20 MG TABLET PO SCH (08:46)
[2021-12-27] MEDS: LACTOBACILLUS RHAMNOSUS GG CAPSULE PO SCH (08:46)
[2021-12-27] MEDS: cefTRIAXone 1 GM in SODIUM CHLORIDE 0.9% MINIBAG 100 ML IV SCH (08:55)
[2021-12-27] MEDS ORDERED: ISOSORBIDE MONONITRATE ER 30 MG TABLET PO SCH (09:00)
[2021-12-27] MEDS ORDERED: AZITHROMYCIN INJ 500 MG in SODIUM CHLORIDE 0.9% 250 ML IV ONE (09:00)
--- NOTE | 2021-12-27 09:00 | Discharge Plan ---
Discharge Plan Problem Reviewed?: Yes Disposition: Home, Self Care Condition: Stable Prescriptions: Amox/Clav 875/125 [Augmentin 875/125 Tab] 1 tablet PO BID #10 tablet Lactobacillus Rhamnosus GG [Culturelle] 1 cap PO DAILY #5 cap guaiFENesin [Mucinex] 600 mg PO BID #10 tablet Diet: Regular Activity Restrictions: Activity as Tolerated Shower Restrictions: No Driving Restrictions: No Health Concerns: You were admitted because of shortness of breath, hypoxia and leg edema. We found you to have a community-acquired pneumonia which was likely causing right heart strain and leg edema. You received several days of IV antibiotics. You are being discharged to take several more days of oral antibiotic plus a probiotic and Mucinex to help expectorate the phlegm. New prescriptions were electronically sent to your [facility] pharmacy in [place]. You got several doses of IV diuretic, which has helped resolve the leg edema entirely. You may now continue to use your prn oral Lasix, as you did pre- hospitalization. You were tested to see if you qualify for a new home oxygen order. You do drop your O2 saturation with activity, therefore a new order for home oxygen has been placed. You need to wear a nasal cannula set at 2 L/min with any activity that you do. Your Finance Lead will manage this going forward Please resume all your usual medications and management. Please see your PCP and/or Finance Lead in the next 1 to 2 weeks for hospital follow-up visit. Plan of Treatment: As above. Care Goals: Improvement in symptoms and stabilization are the goals. Assessment: The patient understands and is agreeable with the plan. Additional Instructions or Follow Up instructions: If you have new or worsening symptoms, call your PCP for advice or come to the Emergency Room. No Smoking: If you smoke, Please STOP! Call for help. Follow-up with: Melba Gallagher ARNP [Primary Care Provider] -
--- NOTE | 2021-12-27 09:07 | DISCHARGE SUMMARY ---
Discharge Summary Admit Date: 12/24/21 Discharge Date: 12/27/21 Discharging Provider: Kaylynn Jang MD Primary Care Provider: AZUCENA Munoz Code Status: Attempt Resuscitation Condition at Discharge: Stable Discharge Disposition: 01 Home, Self Care - HPI History of Present Illness: From the admission H&P of Dr. Effie Escalante: Patient is a 76-year-old white female with an extensive medical history which includes a mixed connective tissue disease, hyperlipidemia, unspecified dysrhythmia, acid reflux, coronary artery disease, mitral valve disorder, sleep apnea, fibromyalgia, osteoporosis, chronic angina who presented to the ED today with complaint of lower extremity edema left greater than right which has been going on for 6 days. She became dyspneic today and reported a wheeze. Overall she reports feeling miserable. In the emergency department she was noted to have an oxygen saturation of 83% on room air with ambulation. Work-up included a chest x-ray which suggested CHF and could not rule out pneumonitis. Patient's BNP was 252. As a result of her clinical presentation she was presented for admission for further treatment. She has chronic chest pain. She denied abdominal pain but reported nausea and vomiting. She denied fever or chills. - CONSULTS | PROCEDURES Procedures: As a Board-certified Metal Crafts Teacher, credentialed to do and interpret Echos, I myself performed a bedside Echo on this patient. The Echo showed: Normal LA and RA sizes. Normal aortic root diameter. Normal LV size and wall thickness, low-normal LV contractility, EF 50%. Diastolic dysfunction Grade 1 by Doppler. Normal RV size and probably normal RV function. Mitral annulus calcified. Doppler of the valves shows trace aortic regurg and tricuspid regurg, moderate mitral regurg. Her PA pressure could not be measured from the TR jet. No pericardial effusion and no obvious pericardial thickening. - HOSPITAL COURSE Hospital Course: (1) Acute respiratory failure with hypoxia This was secondary to pneumonia and CHF. She required up to 2 L/min of supplemental oxygen to achieve O2 sats > 90%, This was slowly weaned down as the underlying CHF and pneumonia were treated. On the day of discharge she was tested with walking oximetry to see if she qualifies for home oxygen and she did: Her room air saturation at rest was 93%. With ambulation, on room air, her O2 saturation dropped to 86%. With ambulation, on 1 L/min of oxygen, her saturation was 90%. With ambulation, on 2 L/min of oxygen, her saturation was 93%. I am ordering a new home oxygen order to be set at 2 L/min via nasal cannula with activity. (2) Community acquired pneumonia Chest x-ray showed CHF changes, plus an underlying small infiltrate. She was coughing and producing green sputum, therefore a pneumonia was present. No blood cultures or sputum culture were sent at admission. She was treated with empiric iv Rocephin and iv Zithromycin. She was discharged home to take 5 more days of Augmentin twice daily plus a probiotic. (3) Acute on chronic diastolic heart failure Chest x-ray showed CHF at admission. BNP was 252, which is the highest she has ever had here. Her last Echo done here was done in 06/2018, thuis she had a bedside Echo done which showed similar normal LVEF with diastolic dysfunction present and mild-moderate mitral regurgitation. She received iv Lasix. Her leg edema resolved. (4) Orthostatic hypotension On 12/26/21, her blood pressure was low, and orthostatic vital signs were checked and were very abnormal. She was dizzy just going from supine to sitting. She did receive her IV Lasix that morning. A bolus of saline 500 cc was given. No more Lasix was given. She was unable to be discharged because of this. Her Imdur dose was cut in half, and Coreg dose cut in half for 2 days. At the time of discharge she was advised to go back to using her uaual cardiac meds and taking oral Lasix only prn edema, as she usually does. (5) N/V She describes longstanding N/V, especially if she has no food for a long time. She received Zofran and takes Zofran TL prn at home. (6) Mixed connective tissue disease She reports that it is a type of Lupus vs Sjogren's and she had ILD diagnosed by lung biopsy. 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 She is followed by a Metal Crafts Teacher and a Carry In Worker in [place]. She is usually on CellCept 1000 mg p.o. twice daily and prednisone 5 mg p.o. daily at home. We gave Prednisone 20 mg for 3 days, as a brief "stress dose". (7) Fibromyalgia She has had multiple back and neck spine surgeries and reports chronic pain in many bones and joints. Patient has a continuous subq Dilaudid pump and also needed Oxycodone prn. (8) Sleep apnea Patient's CPAP machine was recalled and she was told it would be over a year before she is able to get a new one. She reports she has been sleeping on her side since then, and was even retested and was not hypoxic at night sleeping on her side, she said. (9) Hx of Afib Patient takes Multaq 400 mg p.o. daily, but she herself did not know her dysrhythmia diagnosis at admission. Multaq is not on formulary here and is also contraindicated when a CHF exacerbation develops, thus it was on hold. Coreg was continued and we continued her 2 baby aspirin daily dose. Her telemetry showed NSR with 1st degree AV block. (10) Coronary artery disease She was on Coreg and Imdur daily, 2 Baby aspirin daily and Atorvastatin every evening. (11) Hyperlipidemia She was kept on atorvastatin 20 mg p.o. every evening. - ALLERGIES Allergies/Adverse Reactions: Allergies Allergy/AdvReac Type Severity Reaction Status Date / Time iodine Allergy Rash Verified 12/24/21 14:35 NSAIDS (Non-Steroidal Allergy abd pain Verified 12/24/21 14:35 Anti-Inflamma pregabalin [From Lyrica] Allergy muscle Verified 12/24/21 14:35 spasms zolpidem tartrate * AdvReac Intermediate Hallucinati Verified 12/24/21 14:35 [From Ambien] ons amitriptyline AdvReac Hallucinati Verified 12/24/21 14:35 ons fentanyl AdvReac Hallucinati Verified 12/24/21 14:35 ons gabapentin AdvReac Hallucinati Verified 12/24/21 14:35 ons artichokes Allergy Unknown Uncoded 12/24/21 14:35 cantelope Allergy Unknown Uncoded 12/24/21 14:35 shellfish Allergy Unknown Uncoded 12/24/21 14:35 - MEDICATIONS Home Medications: Ambulatory Orders Medication Instructions Recorded Confirmed Atorvastatin Calcium [Lipitor] 20 mg PO QPM 05/31/13 12/25/21 Mycophenolate Mofetil [Cellcept] 1,000 mg PO BID 05/31/13 12/25/21 Pantoprazole Sodium 40 mg PO HS 05/31/13 12/25/21 Vitamin B Complex [B Complex] 1 each PO DAILY 08/08/15 12/25/21 Duloxetine HCl [Cymbalta] 60 mg PO DAILY 10/10/16 12/25/21 Multivitamin [Theragran] 1 tab PO DAILY 10/10/16 12/25/21 Valacyclovir HCl [Valacyclovir] 500 mg PO DAILY 10/10/16 12/25/21 predniSONE [Prednisone] 5 mg PO DAILY 10/10/16 12/25/21 Lactobacillus Acidophilus 1 tab DAILY 03/02/17 12/25/21 [Probiotic Acidophilus] Ibandronate Sodium 150 mg PO Q28D 06/14/18 12/25/21 Trimethoprim 100 mg PO DAILY 06/08/19 12/25/21 Aspirin [Aspirin EC] 162 mg PO DAILY 09/28/20 12/25/21 Dronedarone HCl [Multaq] 400 mg PO BID 09/28/20 12/25/21 Isosorbide Mononitrate [Isosorbide 30 mg PO DAILY 09/28/20 12/25/21 Mononitrate ER] Potassium Chloride 10 meq PO BID 09/28/20 12/25/21 traZODone [Desyrel] 50 mg pe PO HS PRN 09/28/20 12/25/21 Calcium Citrate/Vitamin D3 1 each PO DAILY 12/25/21 12/25/21 [Citracal-D3 200Mg-250 Unit Tab] Carvedilol [Coreg] 6.25 mg PO BID 12/25/21 12/25/21 Ferrous Sulfate [Slow Fe] 142 mg PO DAILY 12/25/21 12/25/21 Furosemide [Lasix] 20 mg PO DAILY PRN 12/25/21 12/25/21 Magnesium 250 mg PO DAILY 12/25/21 12/25/21 Multivitamin with Minerals [Hair, 1 each PO DAILY 12/25/21 12/25/21 Skin and Nails] Prazosin [Minipress] 1 mg PO HS 12/25/21 12/25/21 Amox/Clav 875/125 [Augmentin 1 tablet PO BID #10 tablet 12/27/21 875/125 Tab] Lactobacillus Rhamnosus GG 1 cap PO DAILY #5 cap 12/27/21 [Culturelle] guaiFENesin [Mucinex] 600 mg PO BID #10 tablet 12/27/21 - PHYSICAL EXAM AT DISCHARGE General Appearance: positive: No acute distress, Alert Eyes Bilateral: positive: Normal inspection, EOMI ENT: positive: ENT inspection nml, No signs of dehydration Neck: positive: Nml inspection, No JVD Respiratory: positive: No respiratory distress (wearing O2 per n.c.), Rhonchi (L base) Cardiovascular: positive: Regular rate & rhythm, No murmur Abdomen: positive: Non-tender, No distention Skin: positive: Warm, Dry, Pallor Extremities: positive: No pedal edema, Other (Tender over L godinez bone ) Neurologic/Psychiatric: positive: Oriented x3 (Non-focal) - LABS Result Diagrams: 12/27/21 06:27 12/27/21 06:27 - DIAGNOSTIC IMAGING Diagnostic Imaging Results: Final report reviewed - FOLLOW UP Follow Up: See PCP in 1-2 weeks for hospital F/U visit. - TIME SPENT Time Spent in Discharge (Minutes): 50
[2021-12-27] MEDS: oxyCODONE 5 MG TABLET PO PRN (09:11)
[2021-12-27] MEDS ORDERED: guaiFENesin 600 MG TABLET PO SCH (10:27)
[2021-12-27] MEDS ORDERED: AZITHROMYCIN INJ 500 MG in SODIUM CHLORIDE 0.9% 250 ML IV SCH (10:30)
[2021-12-27] MEDS: SODIUM CHLORIDE FLUSH 0.9% 10 ML SYRINGE IVP PRN (10:45)
[2021-12-27 13:19] VITALS: BP 130/53
== END 2021-12-27 13:57 | disposition home or self-care (01) | DRG 189 ==
LOC: ED 14:23 → MS2 19:51
PROVIDERS: ADMIT Internal Medicine; ATTEND Internal Medicine
DX: J96.21 Acute and chronic respiratory failure with hypoxia (principal); J18.9 Pneumonia, unspecified organism; I50.9 Heart failure, unspecified; I50.33 Acute on chronic diastolic (congestive) heart failure; E78.00 Pure hypercholesterolemia, unspecified; M35.1 Other overlap syndromes; I11.0 Hypertensive heart disease with heart failure; Z20.822 Contact with and (suspected) exposure to COVID-19; I95.1 Orthostatic hypotension; R11.2 Nausea with vomiting, unspecified; M79.7 Fibromyalgia; G47.30 Sleep apnea, unspecified; I48.91 Unspecified atrial fibrillation; I25.10 Atherosclerotic heart disease of native coronary artery without angina pectoris; E78.5 Hyperlipidemia, unspecified; K21.9 Gastro-esophageal reflux disease without esophagitis; I05.9 Rheumatic mitral valve disease, unspecified; M81.0 Age-related osteoporosis without current pathological fracture; Z79.899 Other long term (current) drug therapy; Z79.52 Long term (current) use of systemic steroids; Z86.73 Personal history of transient ischemic attack (TIA), and cerebral infarction without residual deficits
CPT/HCPCS: 36415; 71045; 80048; 80053; 82607; 82746; 83690; 83735; 83880; 84484; 85025; 87633; 93005; 94761; 96365; 96367; 96375; 99285; A9270; J1650; J7512

== ENCOUNTER 2022-03-01 21:30 | Outpatient (CLI) | payer MEDICARE, OTHER ==
--- NOTE | 2022-03-02 16:28 | XRAY Report ---
PROCEDURE: Ribs 2 View RT INDICATIONS: RIB PAIN TECHNIQUE: 2 views of the right ribs were acquired. COMPARISON: Chest x-ray 12/24/2021 FINDINGS: Surgical changes and devices: Thoracolumbar fixation rods are present as well as neural stimulator. R ight shoulder arthroplasty. Bones and chest wall: No fractures or dislocations. No suspicious bony lesions. Overlying soft tis sues appear unremarkable. Lungs and pleura: Chronic interstitial pulmonary opacities remain present. No pleural effusions or pn eumothorax are visible. IMPRESSION: No visualized acute fracture or dislocation. However, occult injury cannot be excluded. Recommend chon rt interval imaging follow-up in 7-10 days as clinically indicated for additional evaluation. Reviewed by: Cathy Orozco MD on 03/02/2022 4:26 PM PDT Approved by: Cathy Orozco MD on 03/02/2022 4:26 PM PDT Station ID: [id number]
== END 2022-03-01 21:31 | disposition home or self-care (01) ==
LOC: DI 21:30
PROVIDERS: ATTEND Nurse Practitioner
DX: R07.81 Pleurodynia (principal)

== ENCOUNTER 2022-04-19 15:15 | Outpatient (CLI) | payer MEDICARE, OTHER ==
[2022-04-19 21:08] VITALS: BP 110/52
--- NOTE | 2022-04-19 21:08 | SLEEP CARE CONSULTATION ---
Information from patient questionnaire entered by Sylvain Amador. I have reviewed and concur with the information entered by Sylvain Amador. This document represents the service I personally performed and the decisions made by me, Bailey Stallworth MD, [facility]. History of Present Illness Service Date and Time: 04/19/2022 1515 Initial Everett Sleepiness Scale score: 19 (initial) Current Everett Sleepiness Scale score: 10 (04/19/22) Additional HPI information: Ms. Skinner was diagnosed to have mild obstructive sleep apnea-hypopnea syndrome and returned today with her for a follow up of her sleep study performed 2 weeks ago. The in-laboratory polysomnography performed with oxygen therapy at 1 L/minute showed the patient had reduced sleep efficiency due to sleep onset insomnia and frequent awakenings throughout the night. The sleep architecture was abnormal for sleep fragmentation and lack of REM sleep. Respiratory monitoring showed no significant sleep disordered breathing obstructive sleep apnea-hypopnea (AHI = 1.4) or hypoxia (leonora oxygen saturation of 89%). The patient did not sleep supine during this study. No audible snore. There was severe periodic leg movement of sleep contributing to the sleep fragmentation. Cardiac rhythm was normal sinus rhythm without significant arrhythmia. No abnormal behavior (parasomnia) observed during the night. Sleep Study - Results Type of Sleep Study: Polysomnography (F/U POLY, DONE ON 03/30/22) Prior sleep studies: Yes Year and Where: 2012 and 2016 [facility] Allergies and Home Medications Drug allergies reviewed: Yes Home medication list reviewed: Yes Allergy and home medication list: Allergies iodine Allergy (Verified 12/24/21 14:35) Rash NSAIDS (Non-Steroidal Anti-Inflamma Allergy (Verified 12/24/21 14:35) abd pain pregabalin [From Lyrica] Allergy (Verified 12/24/21 14:35) muscle spasms zolpidem tartrate * [From Ambien] Adverse Reaction (Intermediate, Verified 12/24/21 14:35) Hallucinations amitriptyline Adverse Reaction (Verified 12/24/21 14:35) Hallucinations fentanyl Adverse Reaction (Verified 12/24/21 14:35) Hallucinations gabapentin Adverse Reaction (Verified 12/24/21 14:35) Hallucinations artichokes Allergy (Uncoded 12/24/21 14:35) Unknown cantelope Allergy (Uncoded 12/24/21 14:35) Unknown shellfish Allergy (Uncoded 12/24/21 14:35) Unknown Review of Systems Review of systems same as previous: Yes Physical Exam Vital signs obtained and entered by: VIVIANA ROSSI Blood Pressure: 110/52 (left arm ) Cuff size: regular Heart Rate: 72 Height: 5 ft 4 in Impression and Plan IMPRESSION: 1. Obstructive Sleep Apnea-Hypopnea Syndrome, mild, not present with oxygen therapy. Therefore, she does not have to use her CPAP in addition to the oxygen. 2. Circadian rhythm disorder with the patient sleeping during the day and not at night. The problem bothers her more than it bothers her. She used to work nights all her life. No treatment is necessary. 3. Periodic leg movement of sleep without restless leg syndrome. The patient complains of severe pain in her legs but not restlessness. The cause of periodic leg movement of sleep is typically unknown. Few known causes are iron deficiency, renal failure, and selective serotonin reuptake inhibitors. Iron and ferritin levels are recommended in addition to the routine blood work. PLAN: 1. Discontinue CPAP therapy. * Return for a follow up on as needed basis. Follow up with Sleep Care in: as needed Visit Type: In Office Other Participants: Spouse/Significant Other Time Spent with Patient (minutes): 20 Provider Statement: I spent 100% of the Face to Face Visit with the patient with greater than 50% spent counseling the patient and coordination of care.
== END 2022-04-19 15:16 | disposition home or self-care (01) ==
LOC: SC 15:15
PROVIDERS: ATTEND Internal Medicine Pulmonary Disease
DX: G47.33 Obstructive sleep apnea (adult) (pediatric) (principal); G47.29 Other circadian rhythm sleep disorder; G47.61 Periodic limb movement disorder; Z99.81 Dependence on supplemental oxygen
CPT/HCPCS: 99213; G0463; 99212

== ENCOUNTER 2022-07-19 08:00 | Outpatient (CLI) | payer MEDICARE, OTHER | END 2022-07-19 23:59 | disposition home or self-care (01) | LOC: LAB.N 08:00 | PROVIDERS: ATTEND Nurse Practitioner | DX: R30.0 Dysuria (principal) | CPT/HCPCS: 87086 ==

== ENCOUNTER 2022-08-16 08:00 | Outpatient (CLI) | payer MEDICARE, OTHER ==
[2022-08-16 18:14] LABS: BILIRUBIN,URINE NEGATIVE (NEGATIVE); GLUCOSE, URINE (UA) NEGATIVE (NEGATIVE); KETONES,URINE (UA) NEGATIVE (NEGATIVE); LEUKOCYTE ESTERASE, URINE LARGE (NEGATIVE); NITRITE,URINE NEGATIVE (NEGATIVE); OCCULT BLOOD,URINE TRACE-INTA (NEGATIVE); PH,URINE 5.5 PH (5.0-7.5); PROTEIN,URINE NEGATIVE (NEGATIVE); UROBILINOGEN,URINE 0.2 (NORMAL) E.U./dL (NORMAL)
[2022-08-16 18:50] LABS: BACTERIA,URINE Many /HPF (None Seen); CLARITY,URINE CLOUDY (CLEAR); RBC,URINE 0-5 /HPF (0-5); SQUAMOUS EPITHELIAL CELL,UR NONE SEEN (<= Few); WBC,URINE >25 /HPF (0-5)
== END 2022-08-16 23:59 | disposition home or self-care (01) ==
LOC: LAB.WCP 08:00
PROVIDERS: ATTEND Nurse Practitioner
DX: N39.0 Urinary tract infection, site not specified (principal)
CPT/HCPCS: 81001; 87086; 87181

== ENCOUNTER 2022-09-07 16:03 | Outpatient (CLI) | payer MEDICARE, OTHER | END 2022-09-07 16:04 | disposition critical access hospital (66) | LOC: EMS 16:03 | DX: S30.0XXA Contusion of lower back and pelvis, initial encounter (principal); M54.50 Low back pain, unspecified; W18.39XA Other fall on same level, initial encounter; Y92.009 Unspecified place in unspecified non-institutional (private) residence as the place of occurrence of the external cause; Z98.1 Arthrodesis status; R05.9 Cough, unspecified; R11.2 Nausea with vomiting, unspecified; R53.83 Other fatigue | CPT/HCPCS: A0425; A0429 ==

== ENCOUNTER 2022-09-07 16:12 | Emergency (ER) | payer MEDICARE, OTHER ==
[2022-09-07 16:46] LABS: BASOPHILS # (AUTO) 0.1 10^3/uL (0.0-0.1); BASOPHILS % (AUTO) 0.7 %; EOSINOPHILS # (AUTO) 0.3 10^3/uL (0.0-0.7); EOSINOPHILS % (AUTO) 1.6 %; HCT - HEMATOCRIT 35.7 % (37.0-47.0); HGB - HEMOGLOBIN 10.9 g/dL (12.0-16.0); LYMPHOCYTES % (AUTO) 6.1 %; MEAN CORPUSCULAR HEMOGLOBIN 31.1 pg (27.0-31.0); MEAN CORPUSCULAR HGB CONC 30.5 g/dL (32.0-36.0); MEAN PLATELET VOLUME 10.6 fL (7.9-10.8); MONOCYTES # (AUTO) 0.7 10^3/uL (0.0-1.0); MONOCYTES % (AUTO) 4.4 %; NEUTROPHILS # (AUTO) 13.7 10^3/uL (1.5-6.6); NEUTROPHILS % (AUTO) 86.4 %; PLT - PLATELET COUNT 211 10^3/uL (130-450); WHITE BLOOD COUNT 15.9 x10^3/uL (4.8-10.8)
[2022-09-07 16:58] LABS: ALBUMIN 4.1 g/dL (3.2-5.5); ALBUMIN/GLOBULIN RATIO 1.4 (1.0-2.2); BILIRUBIN,TOTAL 0.9 mg/dL (0.2-1.0); CREATININE 0.7 mg/dL (0.4-1.0); POTASSIUM 4.8 mmol/L (3.5-5.0)
--- NOTE | 2022-09-07 16:59 | XRAY Report ---
PROCEDURE: Chest 1 View X-Ray INDICATIONS: weak/fall TECHNIQUE: One view of the chest was acquired. COMPARISON: Chest x-ray 12/24/2021 FINDINGS: Surgical changes and devices: Visualized thoracolumbar as well as cervical fixation rods. Bilateral shoulder arthroplasties are present. Lungs and pleura: Chronic interstitial pulmonary changes are present. There is no visualized superim posed consolidation. Mediastinum: Mediastinal contours appear normal. Heart size is normal. Bones and chest wall: No suspicious bony lesions. Overlying soft tissues appear unremarkable. IMPRESSION: Chronic interstitial changes. No acute pulmonary process. Reviewed by: Cathy Orozco MD on 09/07/2022 4:58 PM PST Approved by: Cathy Orozco MD on 09/07/2022 4:58 PM PST Station ID: [id number]
--- NOTE | 2022-09-07 17:23 | ED Physician Documentation ---
PD HPI BACK PAIN - Stated complaint Stated Complaint: GLF - Chief complaint Chief Complaint: Trauma Ch/Bk - History obtained from History obtained from: Patient - Additional information Additional information: Patient is a 76-year-old female with a history of chronic back pain presenting for evaluation of low back pain That started today after a fall. At this morning she was in the bathroom and accidentally tried to sit on her wheelchair but missed and fell landing on her buttocks. She reports hitting her head but did not have any LOC. She has trouble getting up after falling and it took several hours for her who was sleeping downstairs to noticed that she needed help. He was able to get her up and sitting in an office chair. She reports having worsening pain since that time. Pain is primarily in the low back and buttock area. She does have a history of multiple spinal surgeries and fusions. She does not take a blood thinner. She denies recently being ill.She is normally on home oxygen. Review of Systems Constitutional: denies: Fever Cardiac: denies: Chest pain / pressure Respiratory: denies: Dyspnea GI: denies: Abdominal Pain Musculoskeletal: reports: Back pain Neurologic: denies: Headache PD PAST MEDICAL HISTORY - Past Medical History Cardiovascular: Congestive heart failure, Hypertension, High cholesterol, Coronary artery disease, Valve disorder (mitral), Other (Dysrhythmia) Respiratory: Pneumonia, Shortness of breath, Sleep apnea, CPAP use, Other Neuro: TIA Endocrine/Autoimmune: None, Other (Mixed Connective Tissue Disorder) GI: Chronic diarrhea, Chronic constipation LEASE OUT WORKER: None : Kidney stones HEENT: Chronic vision loss Psych: None Musculoskeletal: Chronic back pain Derm: Other - Past Surgical History Past Surgical History: Yes General: Cholecystectomy, Colonoscopy Ortho: Shoulder arthroplasty, Spine surgery, Other /LEASE OUT WORKER: Hysterectomy Cardiovascular: Other HEENT: Cataracts, Tonsil/Adenoidectomy Derm: Other - Present Medications Home Medications: Ambulatory Orders Medication Instructions Recorded Confirmed Atorvastatin Calcium [Lipitor] 20 mg PO QPM 05/31/13 12/25/21 Mycophenolate Mofetil [Cellcept] 1,000 mg PO BID 05/31/13 12/25/21 Pantoprazole Sodium 40 mg PO HS 05/31/13 12/25/21 Vitamin B Complex [B Complex] 1 each PO DAILY 08/08/15 12/25/21 Duloxetine HCl [Cymbalta] 60 mg PO DAILY 10/10/16 12/25/21 Multivitamin [Theragran] 1 tab PO DAILY 10/10/16 12/25/21 Valacyclovir HCl [Valacyclovir] 500 mg PO DAILY 10/10/16 12/25/21 predniSONE [Prednisone] 5 mg PO DAILY 10/10/16 12/25/21 Lactobacillus Acidophilus 1 tab DAILY 03/02/17 12/25/21 [Probiotic Acidophilus] Ibandronate Sodium 150 mg PO Q28D 06/14/18 12/25/21 Trimethoprim 100 mg PO DAILY 06/08/19 12/25/21 Aspirin [Aspirin EC] 162 mg PO DAILY 09/28/20 12/25/21 Dronedarone HCl [Multaq] 400 mg PO BID 09/28/20 12/25/21 Isosorbide Mononitrate [Isosorbide 30 mg PO DAILY 09/28/20 12/25/21 Mononitrate ER] Potassium Chloride 10 meq PO BID 09/28/20 12/25/21 traZODone [Desyrel] 50 mg pe PO HS PRN 09/28/20 12/25/21 Calcium Citrate/Vitamin D3 1 each PO DAILY 12/25/21 12/25/21 [Citracal-D3 200Mg-250 Unit Tab] Carvedilol [Coreg] 6.25 mg PO BID 12/25/21 12/25/21 Ferrous Sulfate [Slow Fe] 142 mg PO DAILY 12/25/21 12/25/21 Furosemide [Lasix] 20 mg PO DAILY PRN 12/25/21 12/25/21 Magnesium 250 mg PO DAILY 12/25/21 12/25/21 Multivitamin with Minerals [Hair, 1 each PO DAILY 12/25/21 12/25/21 Skin and Nails] Prazosin [Minipress] 1 mg PO HS 12/25/21 12/25/21 Amox/Clav 875/125 [Augmentin 1 tablet PO BID #10 tablet 12/27/21 875/125 Tab] Lactobacillus Rhamnosus GG 1 cap PO DAILY #5 cap 12/27/21 [Culturelle] guaiFENesin [Mucinex] 600 mg PO BID #10 tablet 12/27/21 Amox/Clav 875/125 [Augmentin] 1 each PO Q12H #14 tablet 09/07/22 Azithromycin [Zithromax] 1 tab PO DAILY #4 tab 09/07/22 oxyCODONE [Roxicodone] 5 mg PO Q6H PRN #10 tablet 09/07/22 - Allergies Allergies/Adverse Reactions: Allergies Allergy/AdvReac Type Severity Reaction Status Date / Time iodine Allergy Rash Verified 09/07/22 16:21 NSAIDS (Non-Steroidal Allergy abd pain Verified 09/07/22 16:21 Anti-Inflamma pregabalin [From Lyrica] Allergy muscle Verified 09/07/22 16:21 spasms zolpidem tartrate * AdvReac Intermediate Hallucinati Verified 09/07/22 16:21 [From Ambien] ons amitriptyline AdvReac Hallucinati Verified 09/07/22 16:21 ons fentanyl AdvReac Hallucinati Verified 09/07/22 16:21 ons gabapentin AdvReac Hallucinati Verified 09/07/22 16:21 ons artichokes Allergy Unknown Uncoded 12/24/21 14:35 cantelope Allergy Unknown Uncoded 12/24/21 14:35 shellfish Allergy Unknown Uncoded 12/24/21 14:35 - Social History Does the pt smoke?: No Smoking Status: Former smoker Does the pt drink ETOH?: No Does the pt have substance abuse?: No - Immunizations Immunizations are current?: Yes - POLST Patient has POLST: No POLST Status: Full Code PD ED PE NORMAL - General General: Alert and oriented X 3, No acute distress, Well developed/nourished - HEENT HEENT: Atraumatic - Neck Neck: Supple, no meningeal sign, Other (Midline C-spine tenderness, patient states this is somewhat chronic for her, has large well-healed incision to cervical spine) - Cardiac Cardiac: RRR, No murmur, Strong equal pulses - Respiratory Respiratory: No respiratory distress, Clear bilaterally - Abdomen Abdomen: Soft, Non tender - Back Back: Other (Low lumbar tenderness to palpation, well-healed incision, Bruising to left buttock) - Extremities Extremities: No deformity - Neuro Neuro: Alert and oriented X 3, clinical engineer 2-12 intact, No motor deficit, Normal speech Results - Vitals Vitals: Vital Signs - 24 hr 09/07/22 09/07/22 09/07/22 16:21 16:45 18:28 Temperature 36.8 C Heart Rate 90 88 76 Respiratory 36 H 24 20 Rate Blood Pressure 124/34 L 115/50 L 116/60 O2 Saturation 95 98 98 If not protocol 2 : Oxygen Flow, liters/minute 09/07/22 20:00 Temperature 36.6 C Heart Rate 72 Respiratory 16 Rate Blood Pressure 118/70 O2 Saturation 99 If not protocol : Oxygen Flow, liters/minute Oxygen O2 Source Room air Oxygen Flow Rate 2 - EKG (time done) 1744 Rate: Rate (enter#) (80) Rhythm: NSR Ischemia: No: ST elevation c/w ischemia Computer interpretation: No: Disagree with computer - Labs Labs: Laboratory Tests 09/07/22 09/07/22 09/07/22 16:39 16:39 17:39 WBC 15.9 H RBC 3.50 L Hgb 10.9 L Hct 35.7 L MCV 102.0 H MCH 31.1 H MCHC 30.5 L RDW 16.0 H Plt Count 211 MPV 10.6 Neut # (Auto) 13.7 H Lymph # (Auto) 1.0 L [place] # (Auto) 0.7 Eos # (Auto) 0.3 Baso # (Auto) 0.1 Absolute Nucleated RBC 0.00 Nucleated RBC % 0.0 Sodium 135 Potassium 4.8 Chloride 99 L Carbon Dioxide 25 Anion Gap 11.0 BUN 22 H Creatinine 0.7 Estimated GFR (MDRD) 81 L Glucose 145 H Calcium 10.0 Total Bilirubin 0.9 AST 27 ALT 17 Alkaline Phosphatase 53 Total Creatine Kinase 67 Total Protein 7.0 Albumin 4.1 Globulin 2.9 Albumin/Globulin Ratio 1.4 Lipase 23 Urine Color YELLOW Urine Clarity CLEAR Urine pH 6.0 Ur Specific [place] 1.020 Urine Protein NEGATIVE Urine Glucose (UA) NEGATIVE Urine Ketones NEGATIVE Urine Occult Blood NEGATIVE Urine Nitrite NEGATIVE Urine Bilirubin NEGATIVE Urine Urobilinogen 0.2 (NORMAL) Ur Leukocyte Esterase NEGATIVE Ur Microscopic Review NOT INDICATED Urine Culture Comments NOT INDICATED SARS-CoV-2 (PCR) 09/07/22 19:16 WBC RBC Hgb Hct MCV MCH MCHC RDW Plt Count MPV Neut # (Auto) Lymph # (Auto) [place] # (Auto) Eos # (Auto) Baso # (Auto) Absolute Nucleated RBC Nucleated RBC % Sodium Potassium Chloride Carbon Dioxide Anion Gap BUN Creatinine Estimated GFR (MDRD) Glucose Calcium Total Bilirubin AST ALT Alkaline Phosphatase Total Creatine Kinase Total Protein Albumin Globulin Albumin/Globulin Ratio Lipase Urine Color Urine Clarity Urine pH Ur Specific [place] Urine Protein Urine Glucose (UA) Urine Ketones Urine Occult Blood Urine Nitrite Urine Bilirubin Urine Urobilinogen Ur Leukocyte Esterase Ur Microscopic Review Urine Culture Comments SARS-CoV-2 (PCR) NOT DETECTED PD Medical Decision Making - ED course Complexity details: reviewed results, re-evaluated patient, d/w patient ED course: Patient presenting for evaluation after ground-level fall. She accidentally missed her wheelchair. There was no prodromal symptoms causing her to fall.CT imaging was obtained over head, neck, lumbar spine, pelvis. I did personally review these images. There is no fracture or dislocation. Patient was given a dose of p.o. pain medication. Her labs were reviewed including CK. She does have a mild leukocytosis. She is chronically anemic and appears stable.There is a patchy opacity seen on her CT of the C-spine. I did also review her chest x- ray. Patient does have a history of COPD and reports chronic cough which is slightly worsened here recently. I will start her on antibiotic with dual coverage given her lung disease and baseline oxygen requirement. Patient was able to road test at her baseline here with a walker and appears steady. At this time I do not see reason for hospitalization. Her port score is 2. Patient is comfortable with plan for discharge and advised on treatment plan. She is counseled regarding concerning symptoms to return for. Departure - Departure Disposition: 01 Home, Self Care Clinical Impression: Traumatic hematoma of buttock, CAP (community acquired pneumonia), Fall at home Condition: Stable Instructions: ED Hematoma, ED Pneumonia Adult Prescriptions: Amox/Clav 875/125 [Augmentin] 1 each PO Q12H #14 tablet oxyCODONE [Roxicodone] 5 mg PO Q6H PRN #10 tablet PRN Reason: Pain Azithromycin [Zithromax] 1 tab PO DAILY #4 tab Comments: Your CT scans Are negative for any broken bones.You do have a bruise to your l eft buttock which could be causing you increased pain. I sent a small amount of pain medication to the [facility] pharmacy. You also have signs of pneumonia on your testing today. I sent antibiotic prescriptions also to the [facility] pharmacy. Please make sure to take your medications only as prescribed. Please have close follow-up with your primary care doctor.; if you have any worsening symptoms please consider return to the ER. I am prescribing a short course of narcotic pain medication for you. These are potentially dangerous and addictive medications that should be used carefully. These medications may constipate you. Take an woyl-csm-nhudscd stool softener (docusate) twice daily with plenty of water while taking these medications. If you go 24 hours without a bowel movement, take [id number] miralax, per package instructions. Do not drink or drive while taking these medications. If you received narcotic or sedating medications while in the emergency department, do not drive for 24 hours. Store this medication in a safe, secure place and out of reach of children. It is a violation of federal law to give or sell this medication to another person or to use in a manner other than prescribed. The ED will not refill narcotic prescriptions, including prescriptions lost or stolen. To dispose of unwanted medications: 1. [facility] at [address] in [place] has a medication drop box. They accept prescription medications (in pill form) Tuesday through Tuesday 9:00 a.m. to 5:00 p.m. 2. The [facility] [employer] accepts prescription medications (in pill form only) for disposal year round. Call for more information. 3. Contact the [facility] for the next [facility] sponsored prescription drug collection event. , [phone], or [phone]; Note that many narcotic pain relievers also contain Tylenol/acetaminophen. Please ensure that your total dose of acetaminophen from all sources does not exceed 3 g (3000 mg) per day. Discharge Date/Time: 09/07/22 20:19
[2022-09-07 17:50] LABS: BILIRUBIN,URINE NEGATIVE (NEGATIVE); GLUCOSE, URINE (UA) NEGATIVE (NEGATIVE); KETONES,URINE (UA) NEGATIVE (NEGATIVE); LEUKOCYTE ESTERASE, URINE NEGATIVE (NEGATIVE); NITRITE,URINE NEGATIVE (NEGATIVE); OCCULT BLOOD,URINE NEGATIVE (NEGATIVE); PROTEIN,URINE NEGATIVE (NEGATIVE); UROBILINOGEN,URINE 0.2 (NORMAL) E.U./dL (NORMAL)
[2022-09-07 17:52] LABS: CLARITY,URINE CLEAR (CLEAR)
--- NOTE | 2022-09-07 18:00 | CT Report ---
PROCEDURE: HEAD WO INDICATIONS: fall/pain TECHNIQUE: Noncontrast 4.5 mm thick angled axial sections acquired from the foramen magnum to the vertex. For r adiation dose reduction, the following was used: automated exposure control, adjustment of mA and/or kV according to patient size. COMPARISON: 09/28/2020, 06/14/2018 Correlation is also made with the accompanying CT examinations. FINDINGS: Image quality: Motion artifact is noted. CSF spaces: Basal cisterns are patent. No extra-axial fluid collections. Ventricles are normal in size and shape. Brain: No midline shift. No intracranial masses or hemorrhage. Jalloh-white matter interface is norm al. Skull and face: Calvarium and visualized facial bones are intact, without suspicious lesions. Sinuses: Visualized sinuses and mastoids are clear. IMPRESSION: Limited intracranial study demonstrating no acute abnormality. Reviewed by: Cole Rolle MD on 09/07/2022 4:59 PM [place] Approved by: Cole Rolle MD on 09/07/2022 4:[address] [facility] Station ID: [id number]
--- NOTE | 2022-09-07 18:03 | CT Report ---
PROCEDURE: CERVICAL SPINE WO INDICATIONS: fall/pain TECHNIQUE: Noncontrast 3 mm thick sections acquired from the skull base to the T4 level. Sagittal and coronal r eformats were then constructed. For radiation dose reduction, the following was used: automated exp osure control, adjustment of mA and/or kV according to patient size. COMPARISON: 09/28/2020, 06/14/2019 FINDINGS: Image quality: There is streak artifact seen to the level of the shoulders. Bones: No fractures or dislocations. Visualized superior ribs are intact. Extensive postoperative hardware is seen posteriorly. Disc spacers are seen at C4-C5, C5-C6, and C6-C 7. No arely findings of hardware failure or hardware loosening can be seen. There is been removal of prominent portions of the posterior elements. Degenerative changes are seen throughout. Vertebral body fusion can be seen at the C3-C4 level. Focal degenerative change can be seen involving the C1-C2 interface anteriorly. Soft tissues: Minimal patchy opacity can be seen at the right lung apex. The thyroid is small in siz e. Prevertebral soft tissues are normal in thickness. No paravertebral hematomas. No apical pneumot horaces. IMPRESSION: No acute fracture seen. Extensive postoperative hardware. Mild patchy opacity seen at the right lung apex. Reviewed by: Cole Rolle MD on 09/07/2022 5:01 PM [facility] Approved by: Cole Rolle MD on 09/07/2022 5:01 PM [facility] Station ID: [id number]
--- NOTE | 2022-09-07 18:08 | CT Report ---
PROCEDURE: PELVIS WO INDICATIONS: fall/pain TECHNIQUE: Noncontrast 3 mm axial sections acquired through the bony pelvis, with coronal and sagittal reformatt ing. For radiation dose reduction, the following was used: automated exposure control, adjustment of mA and/or kV according to patient size. COMPARISON: Correlation is made with prior abdomen and pelvis CT, 10/25/2016. Correlation is made wit h prior plain films, 09/28/2020. FINDINGS: Image quality: Excellent. Bones: Extensive lumbosacral postoperative hardware can be seen, without arely findings of failure o r loosening. There is postoperative hardware seen involving the right proximal femur. The bones are overall osteopenic. Generalized degenerative changes are seen. Soft tissues: The right-sided pain pump is seen. There is also a stimulator power pack seen posterio rly on the left. No dilated loops of small bowel are seen. There is a fat-containing periumbilical he rnia. This patient is status post hysterectomy. No adnexal masses can be seen. No significant bladde r wall thickening can be seen. No enlarged lymph nodes are seen. IMPRESSION: No acute fracture is identified. The bones are osteopenic, with generalized degenerative changes. Additional findings: Right-sided pain pump Left-sided power pack Extensive lumbosacral fixation hardware Apparent bone growth stimulator Right proximal femur hardware Reviewed by: Cole Rolle MD on 09/07/2022 5:07 PM [facility] Approved by: Cole Rolle MD on 09/07/2022 5:07 PM [facility] Station ID: [id number]
--- NOTE | 2022-09-07 18:17 | CT Report ---
PROCEDURE: LUMBAR SPINE WO INDICATIONS: fall/pain TECHNIQUE: Noncontrast 3 mm thick sections acquired from the T12 level to the sacrum. Sagittal and coronal refo rmats were constructed. For radiation dose reduction, the following was used: automated exposure co ntrol, adjustment of mA and/or kV according to patient size. COMPARISON: Prior abdomen and pelvis CT, 10/10/2016. Correlation is made with the accompanying CT exam inations. FINDINGS: Image quality: There is artifact associated with the metallic hardware. Bones: Extensive lumbosacral fixation hardware is seen. No findings of hardware failure or hardware loosening can be seen. There has been removal of portions of the posterior elements. Bone grafting m aterial is seen. Vertebroplasty cement can be seen at T11, T12, and L1. Levoconvex scoliosis is seen. The bones are osteopenic. Generalized moderate to prominent degenerative changes are seen. Soft tissues: Mild family seen adjacent to the right liver laterally, as previously demonstrated. Th e liver itself is unremarkable. Cholecystectomy clips are seen. Along the anterior aspect of the rig ht kidney, there is a simple cyst seen measuring 2.2 cm. No hydronephrosis is seen. No dilated loops of bowel are seen. This patient is status post hysterectomy. No adnexal masses can b e seen. IMPRESSION: No acute fracture is seen. Extensive postoperative and degenerative changes are seen. Additional findings: Cholecystectomy Bowel seen along the right aspect of the liver, as before Simple appearing right renal cyst Hysterectomy Note: Case discussed by telephone with Dr. Gotti at 5:13 PM [place] time on 09/07/2022. Reviewed by: Cole Rolle MD on 09/07/2022 5:15 PM [facility] Approved by: Cole Rolle MD on 09/07/2022 5:15 PM [facility] Station ID: [id number]
[2022-09-07] MEDS ORDERED: oxyCODONE 5 MG TABLET PO STA (18:46)
[2022-09-07] MEDS ORDERED: AMOX/CLAV 875 MG/125 MG TABLET PO STA (18:57)
[2022-09-07] MEDS ORDERED: AZITHROMYCIN 250 MG TABLET PO STA (18:58)
[2022-09-07 20:03] VITALS: BP 118/70
== END 2022-09-07 20:19 | disposition home or self-care (01) ==
LOC: EDUNIT# → ED 16:12
DX: S30.0XXA Contusion of lower back and pelvis, initial encounter (principal); W05.0XXA Fall from non-moving wheelchair, initial encounter; J18.9 Pneumonia, unspecified organism; Z87.891 Personal history of nicotine dependence; Z99.81 Dependence on supplemental oxygen; I10 Essential (primary) hypertension
CPT/HCPCS: 36415; 51701; 70450; 71045; 72125; 72131; 72192; 80053; 81003; 82550; 83690; 85025; 87635; 93005; 99283; 99285; A9270; 81001; 87086

== ENCOUNTER 2022-09-14 16:15 | Outpatient (CLI) | payer MEDICARE, OTHER ==
[2022-09-14 17:21] LABS: BASOPHILS # (AUTO) 0.1 10^3/uL (0.0-0.1); BASOPHILS % (AUTO) 1.1 %; EOSINOPHILS # (AUTO) 0.2 10^3/uL (0.0-0.7); EOSINOPHILS % (AUTO) 2.1 %; HCT - HEMATOCRIT 32.4 % (37.0-47.0); LYMPHOCYTES % (AUTO) 17.9 %; MEAN CORPUSCULAR HEMOGLOBIN 31.7 pg (27.0-31.0); MEAN CORPUSCULAR HGB CONC 30.9 g/dL (32.0-36.0); MEAN CORPUSCULAR VOLUME 102.9 fL (81.0-99.0); MEAN PLATELET VOLUME 10.3 fL (7.9-10.8); MONOCYTES # (AUTO) 1.1 10^3/uL (0.0-1.0); MONOCYTES % (AUTO) 9.8 %; NEUTROPHILS # (AUTO) 7.7 10^3/uL (1.5-6.6); NEUTROPHILS % (AUTO) 68.3 %; PLT - PLATELET COUNT 307 10^3/uL (130-450); RED BLOOD COUNT 3.15 10^6/uL (4.20-5.40); RED CELL DISTRIBUTION WIDTH 16.1 % (12.0-15.0); WHITE BLOOD COUNT 11.3 x10^3/uL (4.8-10.8)
[2022-09-14 17:51] LABS: ALBUMIN 3.8 g/dL (3.2-5.5); ALBUMIN/GLOBULIN RATIO 1.3 (1.0-2.2); BILIRUBIN,TOTAL 0.7 mg/dL (0.2-1.0); CALCIUM 10.2 mg/dL (8.5-10.3); CREATININE 0.7 mg/dL (0.4-1.0); POTASSIUM 4.4 mmol/L (3.5-5.0); TOTAL PROTEIN 6.7 g/dL (6.7-8.2)
--- NOTE | 2022-09-14 18:05 | XRAY Report ---
PROCEDURE: Chest 2 View X-Ray INDICATIONS: PNEUMONIA TECHNIQUE: 2 views of the chest were acquired. COMPARISON: None. FINDINGS: Surgical changes and devices: There is prior bilateral shoulder arthroplasty. Extensive fixation of t horacic and lumbar spine is seen. Pain stimulator there are leads are seen projecting in mid thoracic spine level. Extensive surgery involving visualized cervical spine and upper thoracic spine is also seen. Lungs and pleura: No pleural effusions or pneumothorax. Small patchy airspace opacity in right lower lung field is seen suggestive of right lower lobe infiltrate. Chronic edematous changes are seen. Mediastinum: Mediastinal contours are normal. Heart size is normal. Bones and chest wall: No suspicious bony abnormalities. Soft tissues appear unremarkable. IMPRESSION: Suggestion of small right lower lobe infiltrate and COPD. No pleural effusion or pneumothorax. Reviewed by: Dagoberto Barrera MD on 09/14/2022 6:03 PM PST Approved by: Dagoberto Barrera MD on 09/14/2022 6:03 PM PST Station ID: [id number]
== END 2022-09-14 16:16 | disposition home or self-care (01) ==
LOC: DI 16:15
PROVIDERS: ATTEND Nurse Practitioner
DX: J18.9 Pneumonia, unspecified organism (principal)
CPT/HCPCS: 36415; 80053; 85025

== ENCOUNTER 2022-09-20 14:56 | Outpatient (CLI) | payer MEDICARE, OTHER ==
--- NOTE | 2022-09-20 18:14 | CT Report ---
PROCEDURE: CERVICAL SPINE WO INDICATIONS: CHRONIC NECK PAIN TECHNIQUE: Noncontrast 3 mm thick sections acquired from the skull base to the T4 level. Sagittal and coronal r eformats were then constructed. For radiation dose reduction, the following was used: automated exp osure control, adjustment of mA and/or kV according to patient size. COMPARISON: 09/07/2022 FINDINGS: Image quality: Metallic artifact from extensive posterior lateral fusion hardware. Bones: No fractures or dislocations. Visualized superior ribs are intact. Previous posterior late ral britni and pedicle screw fixation bilaterally spanning C3-T2. There is no screw fixation of C7. Ther e are disc spacers present at C4-C5, C5-C6, and C6-C7. Mild chronic anterolisthesis of C2 on C3 is no roberta. There is bilateral facet arthropathy at this level, prominent on the left. There is posterior la minectomy at C3-C5. Soft tissues: Prevertebral soft tissues are normal in thickness. No paravertebral hematomas. No ap ical pneumothoraces. IMPRESSION: 1. Extensive fusion hardware, and extensive posterior laminectomy. 2. No evidence of acute cervical fracture or dislocation. 3. Bilateral facet arthropathy, left greater than right, at C2-C3. Reviewed by: Kenyon Mary MD on 09/20/2022 6:13 PM PST Approved by: Kenyon Mary MD on 09/20/2022 6:13 PM PST Station ID: [id number]
== END 2022-09-20 14:57 | disposition home or self-care (01) ==
LOC: DI 14:56
PROVIDERS: ATTEND Nurse Practitioner
DX: M47.812 Spondylosis without myelopathy or radiculopathy, cervical region (principal); Z98.1 Arthrodesis status

== ENCOUNTER 2022-10-21 08:00 | Outpatient (CLI) | payer MEDICARE, OTHER ==
[2022-10-21 18:16] LABS: BILIRUBIN,URINE NEGATIVE (NEGATIVE); GLUCOSE, URINE (UA) NEGATIVE (NEGATIVE); KETONES,URINE (UA) NEGATIVE (NEGATIVE); LEUKOCYTE ESTERASE, URINE TRACE (NEGATIVE); NITRITE,URINE NEGATIVE (NEGATIVE); OCCULT BLOOD,URINE NEGATIVE (NEGATIVE); PH,URINE 5.5 PH (5.0-7.5); PROTEIN,URINE NEGATIVE (NEGATIVE); UROBILINOGEN,URINE 0.2 (NORMAL) E.U./dL (NORMAL)
[2022-10-21 18:17] LABS: CLARITY,URINE CLEAR (CLEAR)
[2022-10-21 18:30] LABS: BACTERIA,URINE Few /HPF (None Seen); RBC,URINE 0-5 /HPF (0-5); SQUAMOUS EPITHELIAL CELL,UR FEW Squamous (<= Few)
[2022-10-21 18:31] LABS: CRYSTALS,URINE 11-25 Ca Oxalate /LPF
== END 2022-10-21 23:59 | disposition home or self-care (01) ==
LOC: LAB.WCP 08:00
PROVIDERS: ATTEND Nurse Practitioner
DX: R30.0 Dysuria (principal)
CPT/HCPCS: 81001; 87086

== ENCOUNTER 2022-10-22 14:50 | Outpatient (CLI) | payer MEDICARE, OTHER ==
--- NOTE | 2022-10-25 10:41 | Mammography Report ---
BILATERAL DIGITAL SCREENING MAMMOGRAM 3D/2D WITH EXAGGERATED CC: 10/22/2022 CLINICAL: Routine screening. Comparison is made to exams dated: 06/04/2019 mammogram, 03/08/2017 mammogram, 07/27/2016 mammogram, 1 09/20/2015 mammogram, and 10/16/2013 mammogram - [facility]. Both breasts are heterogeneously dense, which may obscure small masses (category c / 51-75% glandular tissue). No significant masses, calcifications, or other findings are seen in either breast. There has been no significant interval change. IMPRESSION: NEGATIVE There is no mammographic evidence of malignancy. A 1 year screening mammogram is recommended. Based on the Tyrer Cuzick model (a risk assessment model) the patients lifetime risk is 7.7% and her 10 year risk is 0.0%. According to the ACR, ACS, and NCCN guidelines, an annual breast MRI exam hang g with mammogram is recommended if the patients lifetime risk is 20% or greater. This exam was interpreted at Station ID: [id number]. NOTE: For mammograms, a report in lay terms will be sent to the patient. Approximately 15% of breast malignancies will not be visualized mammographically. In the management of a palpable breast mass, a negative mammogram must not discourage biopsy of a clinically suspicious lesion. Electronically Signed By: Melonie chau/mani:10/22/2022 17:30:25 letter sent: No_Letter ACR BI-RADS Category 1: Negative 3341F PARENCHYMAL PATTERN: (D) - The breast(s) demonstrate(s) heterogeneously dense fibroglandular vincent shipley. BI-RADS CATEGORY: (1) - 1 Mammogram [id number] 1 year screening LATERALITY: (B)
== END 2022-10-22 14:51 | disposition home or self-care (01) ==
LOC: DI 14:50
DX: Z12.31 Encounter for screening mammogram for malignant neoplasm of breast (principal)

== ENCOUNTER 2022-12-12 15:08 | Outpatient (CLI) | payer MEDICARE, OTHER | END 2022-12-12 15:09 | disposition short-term general hospital (02) | LOC: EMS 15:08 | DX: M25.552 Pain in left hip (principal); M54.6 Pain in thoracic spine; M54.50 Low back pain, unspecified; W01.0XXA Fall on same level from slipping, tripping and stumbling without subsequent striking against object, initial encounter; Y92.002 Bathroom of unspecified non-institutional (private) residence as the place of occurrence of the external cause | CPT/HCPCS: A0425; A0427 ==

== ENCOUNTER 2023-02-04 13:43 | Outpatient (CLI) | payer MEDICARE, OTHER ==
[2023-02-04 13:50] LABS: BILIRUBIN,URINE NEGATIVE (NEGATIVE); GLUCOSE, URINE (UA) NEGATIVE (NEGATIVE); KETONES,URINE (UA) NEGATIVE (NEGATIVE); LEUKOCYTE ESTERASE, URINE MODERATE (NEGATIVE); NITRITE,URINE POSITIVE (NEGATIVE); OCCULT BLOOD,URINE NEGATIVE (NEGATIVE); PH,URINE 6.5 PH (5.0-7.5); PROTEIN,URINE NEGATIVE (NEGATIVE); UROBILINOGEN,URINE 0.2 (NORMAL) E.U./dL (NORMAL)
[2023-02-04 14:05] LABS: BACTERIA,URINE Moderate /HPF (None Seen); CLARITY,URINE SL. CLOUDY (CLEAR); RBC,URINE 0-5 /HPF (0-5); SQUAMOUS EPITHELIAL CELL,UR RARE Squamous (<= Few); WBC,URINE >25 /HPF (0-5)
== END 2023-02-04 13:44 | disposition home or self-care (01) ==
LOC: LAB.R 13:43
PROVIDERS: ATTEND Physician Assistant Medical
DX: R39.15 Urgency of urination (principal); Z87.440 Personal history of urinary (tract) infections
CPT/HCPCS: 81001; 87086; 87181

== ENCOUNTER 2023-04-12 08:00 | Outpatient (CLI) | payer MEDICARE, OTHER ==
[2023-04-12 18:55] LABS: BILIRUBIN,URINE NEGATIVE (NEGATIVE); GLUCOSE, URINE (UA) NEGATIVE (NEGATIVE); KETONES,URINE (UA) NEGATIVE (NEGATIVE); LEUKOCYTE ESTERASE, URINE MODERATE (NEGATIVE); NITRITE,URINE NEGATIVE (NEGATIVE); OCCULT BLOOD,URINE SMALL (NEGATIVE); PROTEIN,URINE 30 mg/dL (NEGATIVE); UROBILINOGEN,URINE 0.2 (NORMAL) E.U./dL (NORMAL)
[2023-04-12 19:45] LABS: CLARITY,URINE HAZY (CLEAR)
[2023-04-12 19:50] LABS: BACTERIA,URINE Moderate /HPF (None Seen); RBC,URINE 0-5 /HPF (0-5); SQUAMOUS EPITHELIAL CELL,UR NONE SEEN (<= Few); WBC,URINE >25 /HPF (0-5)
== END 2023-04-12 23:59 | disposition home or self-care (01) ==
LOC: LAB.R 08:00
PROVIDERS: ATTEND Physician Assistant Medical
DX: R39.15 Urgency of urination (principal)
CPT/HCPCS: 81001; 81003; 87077; 87086; 87181

== ENCOUNTER 2023-05-11 08:00 | Outpatient (CLI) | payer MEDICARE, OTHER | END 2023-05-11 23:59 | disposition home or self-care (01) | LOC: LAB 08:00 | PROVIDERS: ATTEND Nurse Practitioner | DX: R30.0 Dysuria (principal) | CPT/HCPCS: 87086 ==

== ENCOUNTER 2023-07-04 12:35 | Outpatient (CLI) | payer MEDICARE, OTHER ==
--- NOTE | 2023-07-04 14:42 | Ultrasound Report ---
PROCEDURE: Abdomen Limited INDICATIONS: ABD HERNIA TECHNIQUE: Real-time focused scanning was performed of the abdomen, with image documentation. COMPARISONS: CT of the pelvis 09/07/2022. FINDINGS: Ultrasound for evaluation of hernia shows a no evidence for hernia identified in the epigastric regio n. There is a 1.7 x 1.2 cm periumbilical hernia which was noted on prior CT of the pelvis of 09/07/2022. No other significant findings are identified. IMPRESSION: 1. 1.7 x 1.2 cm periumbilical hernia containing omental fat. 2. No epigastric hernia identified. Reviewed by: Ryland Robertson MD on 07/04/2023 2:41 PM PST Approved by: Ryland Robertson MD on 07/04/2023 2:41 PM PST Station ID: [id number]
== END 2023-07-04 12:36 | disposition home or self-care (01) ==
LOC: DI 12:35
PROVIDERS: ATTEND Nurse Practitioner
DX: K42.9 Umbilical hernia without obstruction or gangrene (principal)

== ENCOUNTER 2023-11-01 14:05 | Outpatient (CLI) | payer MEDICARE, OTHER ==
[2023-11-01 14:37] LABS: ALBUMIN 4.1 g/dL (3.2-5.5); ALBUMIN/GLOBULIN RATIO 1.4 (1.0-2.2); BILIRUBIN,TOTAL 0.4 mg/dL (0.2-1.0); CALCIUM 10.7 mg/dL (8.5-10.3); CREATININE 0.7 mg/dL (0.6-1.3); MAGNESIUM 1.8 mg/dL (1.7-2.3); POTASSIUM 3.8 mmol/L (3.5-4.5); TOTAL PROTEIN 7.1 g/dL (6.4-8.9)
== END 2023-11-01 14:06 | disposition home or self-care (01) ==
LOC: LAB 14:05
PROVIDERS: ATTEND Internal Medicine Cardiovascular Disease
DX: Z79.899 Other long term (current) drug therapy (principal); Z86.79 Personal history of other diseases of the circulatory system
CPT/HCPCS: 36415; 80053; 83735

== ENCOUNTER 2024-01-20 17:30 | Outpatient (CLI) | payer MEDICARE, OTHER ==
--- NOTE | 2024-01-20 18:27 | CT Report ---
PROCEDURE: Chest WO INDICATIONS: BRONCHIECTASIS TECHNIQUE: A CT scan of the chest was performed. Intravenous contrast media was not administered. Images were re corded and evaluated at appropriate window settings. Reformats: axial MIP of the chest, coronal and s agittal. For radiation dose reduction, the following was used: automated exposure control, adjustment of mA and/or kV according to patient size. COMPARISON: Chest x-ray 09/14/2022. FINDINGS: Image quality: Diagnostic. Chest wall and lower neck: No thyroid nodule which requires sonographic follow up. No axillary or sup raclavicular adenopathy by size. Lungs and pleura: No consolidation. No pleural effusions. No pneumothorax. Peripheral reticulations, most pronounced within the right lower lobe, consistent with fibrotic changes. Possible honeycombing within the right lower lobe peripherally. Additional patchy areas of mild groundglass and consolidat chely opacities throughout which may be infectious or inflammatory in etiology. Mediastinum: Heart size is normal. Moderate coronary calcific effusions. No pericardial effusion. No large vessel abnormality. Prominent and mildly enlarged mediastinal lymph nodes measuring up to 1.3 c m (2/37). Bones: No aggressive osseous abnormality. Bilateral shoulder arthroplasties. Thoracolumbar fixation h ardware.Bilateral old rib fractures. Decreased osseous mineralization. Degenerative changes of the sp ine. Upper Abdomen: Cholecystectomy. Significant intra and extrahepatic biliary ductal dilatations. Divert iculosis within the visualized bowel without diverticulitis. IMPRESSION: 1.Patchy areas of mild groundglass and consolidative opacities throughout, may be infectious or infla mmatory in etiology. Recommend 3 month follow-up chest CT to assess for resolution. 2.Fibrotic changes, most pronounced within the right lower lobe with possible honeycombing. 3.Prominent and mildly enlarged mediastinal lymph nodes measuring up to 1.3 cm. These may be reactive and attention on follow-up is recommended. 4.Significant intra and extrahepatic biliary ductal dilatation. This appears to be stable compared to CT scans from 2016. Reviewed by: Rojelio Gonzalez MD on 01/20/2024 6:26 PM PDT Approved by: Rojelio Gonzalez MD on 01/20/2024 6:26 PM PDT Station ID: [id number]
== END 2024-01-20 17:31 | disposition home or self-care (01) ==
LOC: DI 17:30
PROVIDERS: ATTEND Nurse Practitioner
DX: J47.9 Bronchiectasis, uncomplicated (principal); R59.0 Localized enlarged lymph nodes; K83.8 Other specified diseases of biliary tract

== ENCOUNTER 2024-01-21 15:55 | Outpatient (CLI) | payer MEDICARE, OTHER | END 2024-01-21 23:59 | disposition critical access hospital (66) | LOC: EMS 15:55 | DX: S00.83XA Contusion of other part of head, initial encounter (principal); R51.9 Headache, unspecified; M54.2 Cervicalgia; M54.9 Dorsalgia, unspecified; W18.30XA Fall on same level, unspecified, initial encounter; Y92.009 Unspecified place in unspecified non-institutional (private) residence as the place of occurrence of the external cause | CPT/HCPCS: A0425; A0429 ==

== ENCOUNTER 2024-01-21 16:07 | Observation (INO) | payer MEDICARE, OTHER ==
--- NOTE | 2024-01-21 16:24 | ED Physician Documentation ---
History of Present Illness - Stated complaint Stated Complaint: GLF - Chief complaint Chief Complaint: Trauma Hd/Nk - History obtained from History obtained from: Patient, EMS - History of Present Illness Timing: Today Pain level max: 8 Pain level now: 8 - Additonal information Additional information: Patient is a 78-year-old female with a history of CHF and interstitial lung disease as well as "emphysema". She states that she was playing on the computer today when she went to stand up and the next thing she knew she woke up on the floor. Does not recall if she fell or passed out. She states that there was nothing around her to trip on. She states that she laid on the ground for about half an hour before she was able to reach her as he was outside. She has chronic full body pain. She states her head and neck hurt worse than usual. No chest pain. She was seen here yesterday had a CT scan that showed pneumonia, started on Augmentin and doxycycline due to her multiple allergies. EMS states that her SpO2 was around 80% on room air at home. She states that she uses oxygen at night when she sleeps. She is not on blood thinners. She does take Multaq. She has bruising to the right forehead. Review of Systems Constitutional: denies: Fever, Chills GI: denies: Vomiting Skin: denies: Rash Neurologic: denies: Generalized weakness, Focal weakness, Numbness, Seizure PD PAST MEDICAL HISTORY - Past Medical History Cardiovascular: Congestive heart failure, Hypertension, High cholesterol, Coronary artery disease, Valve disorder, Other Respiratory: Emphysema, Pneumonia, Shortness of breath, Sleep apnea, CPAP use, Other Neuro: TIA Endocrine/Autoimmune: None, Other GI: Chronic diarrhea, Chronic constipation RESIN FILTERER: None : Kidney stones HEENT: Chronic vision loss Psych: None Musculoskeletal: Chronic back pain Derm: Other - Past Surgical History Past Surgical History: Yes General: Cholecystectomy, Colonoscopy Ortho: Shoulder arthroplasty, Spine surgery, Other /RESIN FILTERER: Hysterectomy Cardiovascular: Other HEENT: Cataracts, Tonsil/Adenoidectomy Derm: Other - Present Medications Home Medications: Ambulatory Orders Medication Instructions Recorded Confirmed Atorvastatin Calcium [Lipitor] 20 mg PO QPM 05/31/13 12/25/21 Mycophenolate Mofetil [Cellcept] 1,000 mg PO BID 05/31/13 12/25/21 Pantoprazole Sodium 40 mg PO HS 05/31/13 12/25/21 Vitamin B Complex [B Complex] 1 each PO DAILY 08/08/15 12/25/21 Duloxetine HCl [Cymbalta] 60 mg PO DAILY 10/10/16 12/25/21 Multivitamin [Theragran] 1 tab PO DAILY 10/10/16 12/25/21 Valacyclovir HCl [Valacyclovir] 500 mg PO DAILY 10/10/16 12/25/21 predniSONE [Prednisone] 5 mg PO DAILY 10/10/16 12/25/21 Lactobacillus Acidophilus 1 tab DAILY 03/02/17 12/25/21 [Probiotic Acidophilus] Ibandronate Sodium 150 mg PO Q28D 06/14/18 12/25/21 Trimethoprim 100 mg PO DAILY 06/08/19 12/25/21 Aspirin [Aspirin EC] 162 mg PO DAILY 09/28/20 12/25/21 Dronedarone HCl [Multaq] 400 mg PO BID 09/28/20 12/25/21 Isosorbide Mononitrate [Isosorbide 30 mg PO DAILY 09/28/20 12/25/21 Mononitrate ER] Potassium Chloride 10 meq PO BID 09/28/20 12/25/21 traZODone [Desyrel] 50 mg pe PO HS PRN 09/28/20 12/25/21 Calcium Citrate/Vitamin D3 1 each PO DAILY 12/25/21 12/25/21 [Citracal-D3 200Mg-250 Unit Tab] Ferrous Sulfate [Slow Fe] 142 mg PO DAILY 12/25/21 12/25/21 Furosemide [Lasix] 20 mg PO DAILY PRN 12/25/21 12/25/21 Magnesium 250 mg PO DAILY 12/25/21 12/25/21 Multivitamin with Minerals [Hair, 1 each PO DAILY 12/25/21 12/25/21 Skin and Nails] Prazosin [Minipress] 1 mg PO HS 12/25/21 12/25/21 carvediloL [Coreg] 6.25 mg PO BID 12/25/21 12/25/21 Amox/Clav 875/125 [Augmentin 1 tablet PO BID #10 tablet 12/27/21 875/125 Tab] Lactobacillus Rhamnosus GG 1 cap PO DAILY #5 cap 12/27/21 [Culturelle] guaiFENesin [Mucinex] 600 mg PO BID #10 tablet 12/27/21 Amox/Clav 875/125 [Augmentin] 1 each PO Q12H #14 tablet 09/07/22 Azithromycin [Zithromax] 1 tab PO DAILY #4 tab 09/07/22 oxyCODONE [Roxicodone] 5 mg PO Q6H PRN #10 tablet 09/07/22 Amoxicillin/Potassium Clav 1 each PO BID #20 ea 01/20/24 [Augmentin Xr 1,000-62.5 Tab] Doxycycline [Vibramycin] 100 mg PO BID #10 tablet 01/20/24 - Allergies Allergies/Adverse Reactions: Allergies Allergy/AdvReac Type Severity Reaction Status Date / Time iodine Allergy Rash Verified 01/21/24 16:17 NSAIDS (Non-Steroidal Allergy abd pain Verified 01/21/24 16:17 Anti-Inflamma pregabalin [From Lyrica] Allergy muscle Verified 01/21/24 16:17 spasms zolpidem tartrate * AdvReac Intermediate Hallucinati Verified 01/21/24 16:17 [From Ambien] ons amitriptyline AdvReac Hallucinati Verified 01/21/24 16:17 ons fentanyl AdvReac Hallucinati Verified 01/21/24 16:17 ons gabapentin AdvReac Hallucinati Verified 01/21/24 16:17 ons artichokes Allergy Unknown Uncoded 01/21/24 16:17 cantelope Allergy Unknown Uncoded 01/21/24 16:17 shellfish Allergy Unknown Uncoded 01/21/24 16:17 - Social History Does the pt smoke?: No Smoking Status: Never smoker Does the pt drink ETOH?: No Does the pt have substance abuse?: No - Immunizations Immunizations are current?: Yes - POLST Patient has POLST: No POLST Status: Full Code PD ED PE NORMAL - Vitals Vital signs reviewed: Yes - General General: Alert and oriented X 3, No acute distress, Well developed/nourished - HEENT HEENT: PERRL, Moist mucous membranes, Other (Abrasion and bruising to the right forehead. Otherwise no scalp hematomas, no palpable skull fractures.) - Neck Neck: Other (Mild upper C-spine tenderness to palpation. Patient maintained in cervical collar) - Cardiac Cardiac: RRR, No murmur - Respiratory Respiratory: Other (Mild wheezing bilaterally, rhonchi present) - Abdomen Abdomen: Soft, Non tender, Non distended - Back Back: No spinal TTP (no midline TTP, no stepoff or deformity) - Derm Derm: Warm and dry - Extremities Extremities: Other (no bony TTP, does have swelling to the B LE for several weeks per patient, The left leg is more swollen than the right leg and does have tenderness on the left calf.) - Neuro Neuro: Alert and oriented X 3 - Psych Psych: Normal mood, Normal affect Results - Vitals Vitals: Vital Signs - 24 hr 01/21/24 01/21/24 01/21/24 16:12 16:15 16:17 Temperature 36.5 C Heart Rate 91 84 Respiratory 18 16 Rate Blood Pressure 113/56 L 113/52 L O2 Saturation 85 L 95 94 If not protocol 2 : Oxygen Flow, liters/minute 01/21/24 01/21/24 17:07 17:47 Temperature Heart Rate 85 83 Respiratory 16 22 Rate Blood Pressure 108/81 H O2 Saturation 94 If not protocol 2 : Oxygen Flow, liters/minute Oxygen O2 Source Nasal cannula Oxygen Flow Rate 2 - EKG (time done) 1655 EKG releavant findings:: EKG personally interpreted by author of this note. Relevant findings are: Rate: Rate (enter#) (82) Rhythm: NSR, Other (PVC) Trilla: Normal Intervals: Prolonged CO, Wide QRS Ischemia: Normal ST segments - Labs Labs: Laboratory Tests 01/21/24 01/21/24 01/21/24 16:20 16:20 16:20 WBC 12.1 H RBC 3.24 L Hgb 10.6 L Hct 34.3 L MCV 105.9 H MCH 32.7 H MCHC 30.9 L RDW 13.4 Plt Count 250 MPV 10.4 Neut # (Auto) 8.4 H Lymph # (Auto) 2.0 Burke # (Auto) 1.3 H Eos # (Auto) 0.3 Baso # (Auto) 0.1 Absolute Nucleated RBC 0.00 Nucleated RBC % 0.0 Sodium 138 Potassium 4.2 Chloride 104 Carbon Dioxide 29 Anion Gap 5.0 L BUN 14 Creatinine 0.7 Estimated GFR (MDRD) 81 L Glucose 113 H Calcium 9.8 Total Bilirubin 0.5 AST 22 ALT 12 Alkaline Phosphatase 58 Troponin I High Sens 10.1 B-Natriuretic Peptide 726 H Total Protein 6.7 Albumin 3.7 Globulin 3.0 Albumin/Globulin Ratio 1.2 Lipase < 10 L - Rads (name of study) cxr Relevant Findings:: Final report received, See rad report duplex LLE Relevant Findings:: Final report received, See rad report CT head Relevant Findings:: Final report received, See rad report CT cervical spine Relevant Findings:: Final report received, See rad report PD Medical Decision Making - ED course Complexity details: reviewed results, re-evaluated patient, considered differential, d/w patient, d/w family, d/w product consultant ED course: Patient is a 78-year-old female who has hypoxia and syncope today. She did have some asymmetric swelling of her left lower extremity compared to the right lower extremity, therefore a ultrasound was performed which does not show DVT. Chest x-ray shows cardiomegaly, possible CHF, BNP is mildly elevated compared to yesterday, but within her normal chronic range. She is wheezy upon arrival and has some rhonchi in her lungs, suspect that the rhonchi is chronic. Given a dose of Solu-Medrol and DuoNeb. She is still remains hypoxic on room air, desaturating to the mid to low 80s. She is not febrile here. Reviewed her CT scan from yesterday, unclear if she truly had pneumonia or not. Respiratory PCR was ordered. Given the continued hypoxia., Syncope with no prodrome, we will place the patient in observation for COPD exacerbation patient with hypoxia and syncope. Cervical collar removed after negative CT scan scan of the cervical spine. Discussed the case with Dr. Baires, hospitalist who accepts This document was made in part using voice recognition software. While efforts are made to proofread this document, sound alike and grammatical errors may occur. Departure - Departure Disposition: ED Place in Observation Clinical Impression: COPD exacerbation, Hypoxia Syncope Qualifiers: Syncope type: unspecified Qualified Code(s): R55 - Syncope and collapse Condition: Stable
[2024-01-21 16:26] LABS: BASOPHILS # (AUTO) 0.1 10^3/uL (0.0-0.1); BASOPHILS % (AUTO) 1.1 %; EOSINOPHILS # (AUTO) 0.3 10^3/uL (0.0-0.7); EOSINOPHILS % (AUTO) 2.6 %; HCT - HEMATOCRIT 34.3 % (37.0-47.0); HGB - HEMOGLOBIN 10.6 g/dL (12.0-16.0); LYMPHOCYTES % (AUTO) 16.2 %; MEAN CORPUSCULAR HEMOGLOBIN 32.7 pg (27.0-31.0); MEAN CORPUSCULAR HGB CONC 30.9 g/dL (32.0-36.0); MEAN CORPUSCULAR VOLUME 105.9 fL (81.0-99.0); MEAN PLATELET VOLUME 10.4 fL (7.9-10.8); MONOCYTES # (AUTO) 1.3 10^3/uL (0.0-1.0); MONOCYTES % (AUTO) 10.4 %; NEUTROPHILS # (AUTO) 8.4 10^3/uL (1.5-6.6); NEUTROPHILS % (AUTO) 69.3 %; PLT - PLATELET COUNT 250 10^3/uL (130-450); RED BLOOD COUNT 3.24 10^6/uL (4.20-5.40); RED CELL DISTRIBUTION WIDTH 13.4 % (12.0-15.0); WHITE BLOOD COUNT 12.1 x10^3/uL (4.8-10.8)
[2024-01-21 16:45] LABS: ALBUMIN 3.7 g/dL (3.2-5.5); ALBUMIN/GLOBULIN RATIO 1.2 (1.0-2.2); ALKALINE PHOSPHATASE 58 IU/L (42-121); ALT ALANINE AMINOTRANSFERASE 12 IU/L (10-60); AST ASPARTATE AMINOTRANSFERASE 22 IU/L (10-42); BILIRUBIN,TOTAL 0.5 mg/dL (0.2-1.0); BUN - BLOOD UREA NITROGEN 14 mg/dL (6-20); CALCIUM 9.8 mg/dL (8.5-10.3); CARBON DIOXIDE - CO2 29 mmol/L (21-32); CHLORIDE 104 mmol/L (101-111); CREATININE 0.7 mg/dL (0.6-1.3); GFR - MDRD 81 (>89); GLUCOSE 113 mg/dL (74-104); POTASSIUM 4.2 mmol/L (3.5-4.5); SODIUM 138 mmol/L (135-145); TOTAL PROTEIN 6.7 g/dL (6.4-8.9)
[2024-01-21 16:47] LABS: LIPASE < 10 U/L (11-82)
[2024-01-21 16:48] LABS: TROPONIN I HIGH SENSITIVITY 10.1 ng/L (2.3-14.8)
--- NOTE | 2024-01-21 16:56 | CT Report ---
PROCEDURE: Head WO INDICATIONS: head pain s/p fall TECHNIQUE: Noncontrast 4.5 mm thick angled axial sections acquired from the foramen magnum to the vertex. For r adiation dose reduction, the following was used: automated exposure control, adjustment of mA and/or kV according to patient size. COMPARISON: 09/07/2022. Correlation is made with the accompanying imaging. FINDINGS: Image quality: There is streak artifact seen through the skull base. CSF spaces: Basal cisterns are patent. No extra-axial fluid collections. Ventricles are normal in size and shape. Brain: No midline shift. No intracranial masses or hemorrhage. Jalloh-white matter interface is norm al. Skull and face: Calvarium and visualized facial bones are intact, without suspicious lesions. Sinuses: Visualized sinuses and mastoids are clear. IMPRESSION: No intracranial hemorrhage is seen. No acute intracranial pathology. Reviewed by: Cole Rolle MD on 01/21/2024 3:55 PM TANK Approved by: Cole Rolle MD on 01/21/2024 3:55 PM TANK Station ID: [id number]
--- NOTE | 2024-01-21 16:58 | CT Report ---
PROCEDURE: Cervical Spine WO INDICATIONS: neck pain s/p fall TECHNIQUE: Noncontrast 3 mm thick sections acquired from the skull base to the T4 level. Sagittal and coronal r eformats were then constructed. For radiation dose reduction, the following was used: automated exp osure control, adjustment of mA and/or kV according to patient size. COMPARISON: 09/20/2022. Correlation is made with the accompanying imaging. FINDINGS: Image quality: There is artifact associated with the metallic hardware. Bones: No fractures or dislocations. Visualized superior ribs are intact. Extensive postoperative change can be seen, with pedicle screws seen posteriorly from C3 through T2. Vertical fixation rods are seen. No findings of hardware failure or hardware loosening can be seen. T here has been removal of portions of the posterior elements. Disc spacers are seen at C4-C5, C5-C6, and C6-C7. Focal degenerative change is seen at C2-C3, with prominent facet arthropathy on the left. Soft tissues: Prevertebral soft tissues are normal in thickness. No paravertebral hematomas. No ap ical pneumothoraces. IMPRESSION: Negative for acute fracture. Extensive postoperative change is seen. Reviewed by: Cole Rolle MD on 01/21/2024 3:57 PM TANK Approved by: Cole Rolle MD on 01/21/2024 3:57 PM TANK Station ID: [id number]
--- NOTE | 2024-01-21 17:00 | XRAY Report ---
PROCEDURE: Chest 1V INDICATIONS: Chest Pain TECHNIQUE: One view of the chest was acquired. COMPARISON: 09/14/2022. Correlation is made with the accompanying imaging. FINDINGS: Surgical changes and devices: Cervicothoracic fixation hardware is seen. Lower thoracic spine fixati on hardware is also seen. There is a thoracic spine similar. Bilateral shoulder arthroplasty hardware can be seen. Lungs and pleura: Generalized interstitial prominence can be seen. Low lung volumes can be seen, cau sing a crowded appearance to the lung markings. No pneumothorax or pleural effusions can be seen. Mediastinum: The aorta is prominent and tortuous. The cardiac contours are mildly enlarged. Bones and chest wall: No suspicious bony lesions. Age-appropriate degenerative changes are seen. Overlying soft tissues appear unremarkable. IMPRESSION: Mild cardiomegaly with generalized interstitial prominence. Please consider CHF. Low lung volumes. Extensive postoperative changes are seen. Reviewed by: Cole Rolle MD on 01/21/2024 3:59 PM TANK Approved by: Cole Rolle MD on 01/21/2024 3:59 PM TANK Station ID: [id number]
[2024-01-21] MEDS: methylPREDNISolone SUCCINATE 125 MG/2 ML VIAL IVP STA (17:32)
[2024-01-21] MEDS: IPRATROPIUM/ALBUTEROL 3 ML NEB INH STA (17:42)
--- NOTE | 2024-01-21 17:42 | Ultrasound Report ---
PROCEDURE: Duplex Ext Veins Left INDICATIONS: LLE swelling, pain TECHNIQUE: Real-time imaging, as well as color and pulse Doppler interrogation, were performed of the lower extr emity deep veins from the inguinal ligament to the popliteal fossa. Attempted visualization of the ca lf veins was performed. COMPARISON: 08/17/2021 FINDINGS: The deep veins are normally compressible, and free of intraluminal thrombus. Color and pu lse Doppler demonstrate normal phasic intraluminal flow. There is normal augmentation response to di stal compression maneuver. IMPRESSION: No deep venous thrombosis of the visualized lower extremity. Note: Concordant preliminary findings given by the tube roller upon the completion of the examination to Dr. Plummer at 5:15 PM on April 22, 2024. Reviewed by: Cole Rolle MD on 01/21/2024 4:40 PM TANK Approved by: Cole Rolle MD on 01/21/2024 4:40 PM TANK Station ID: [id number]
[2024-01-21] MEDS ORDERED: SODIUM CHLORIDE FLUSH 0.9% 10 ML SYRINGE IVP PRN (18:07)
[2024-01-21] MEDS ORDERED: ONDANSETRON ODT 4 MG TABLET TL PRN (18:07)
[2024-01-21] MEDS ORDERED: IPRATROPIUM/ALBUTEROL 3 ML NEB INH PRN (18:07)
[2024-01-21] MEDS ORDERED: ACETAMINOPHEN 325 MG TABLET PO PRN (18:07)
[2024-01-21] MEDS: MAGNESIUM SULFATE 2 GRAM 2 GM/50 ML BAG IV ONE (18:20)
--- NOTE | 2024-01-21 18:42 | HISTORY & PHYSICAL EXAMINATION ---
Chief Complaint - Chief Complaint Chief Complaint: Passing out, shortness of breath History of Present Illness - Admitted From Admitted From:: Emergency department - History Obtained From Records Reviewed: ER records, previous imaging History obtained from: Dr. 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 Patient has a known history of interstitial lung disease with bronchiectasis who was at this hospital yesterday for a scheduled outpatient chest CT. Later in the evening after returning home she found herself short of breath and return to the ER for evaluation and was diagnosed with possible community-acquired pneumonia and was discharged home with prescription for Augmentin and doxycycline. Today she says she was feeling weak and short of breath, she stood up and the next thing she knew she was on the ground having passed out. Reportedly she was on the ground for what she felt to be half an hour or so before she was found by her . She was complaining of generalized aches and pains including in her head and neck. She denied any chest pain. Paramedics were called and upon arrival she was reportedly saturating 80% on room air. She is normally not hypoxic during the daytime but does use nighttime oxygen. In the ED, chest x-ray was negative for acute infiltrates.The CT scan from yesterday showed groundglass opacities with nonspecific infection versus inflammatory and reactive etiology.WBC was 12.Vital signs were stable and she was afebrile.COVID test at the time of admission is pending.Troponin is negative and BNP is elevated at 726. Due to some right lower extremity edema and erythema ultrasound was obtained which was negative for DVT.She was given a dose of Solu-Medrol 125 mg in the ED. She was placed on 3 L nasal cannula and responded well, but given her history, syncopal events, and age with risk factors, observation admission was requested. History - Past Medical History Cardiovascular: reports: Congestive heart failure, Hypertension, High cholesterol, Coronary artery disease, Valve disorder, Other Respiratory: reports: Emphysema, Pneumonia, Shortness of breath, Sleep apnea, CPAP use, Other Neuro: reports: TIA Endocrine/Autoimmune: reports: None, Other GI: reports: Chronic diarrhea, Chronic constipation RING SORTER: reports: None : reports: Kidney stones HEENT: reports: Chronic vision loss Psych: reports: None Musculoskeletal: reports: Chronic back pain Derm: reports: Other MRSA Hx?: Yes - Past Surgical History General: reports: Cholecystectomy, Colonoscopy Ortho: reports: Shoulder arthroplasty, Spine surgery, Other /RING SORTER: reports: Hysterectomy Cardiovascular: reports: Other HEENT: reports: Cataracts, Tonsil/Adenoidectomy Derm: reports: Other - Family & Social History Family History Comment/Other: Positive for diabetes, heart disease and cancer Living Situation: With spouse/s.o. Social History Notes: She rarely consumes alcohol. She does not use tobacco products or recreational substances. - POLST Patient has POLST: No POLST Status: Full Code Meds/Allgy - Home Medications Home Medications: Ambulatory Orders Medication Instructions Recorded Confirmed Atorvastatin Calcium [Lipitor] 20 mg PO QPM 05/31/13 12/25/21 Mycophenolate Mofetil [Cellcept] 1,000 mg PO BID 05/31/13 12/25/21 Pantoprazole Sodium 40 mg PO HS 05/31/13 12/25/21 Vitamin B Complex [B Complex] 1 each PO DAILY 08/08/15 12/25/21 Duloxetine HCl [Cymbalta] 60 mg PO DAILY 10/10/16 12/25/21 Multivitamin [Theragran] 1 tab PO DAILY 10/10/16 12/25/21 Valacyclovir HCl [Valacyclovir] 500 mg PO DAILY 10/10/16 12/25/21 predniSONE [Prednisone] 5 mg PO DAILY 10/10/16 12/25/21 Lactobacillus Acidophilus 1 tab DAILY 03/02/17 12/25/21 [Probiotic Acidophilus] Ibandronate Sodium 150 mg PO Q28D 06/14/18 12/25/21 Trimethoprim 100 mg PO DAILY 06/08/19 12/25/21 Aspirin [Aspirin EC] 162 mg PO DAILY 09/28/20 12/25/21 Dronedarone HCl [Multaq] 400 mg PO BID 09/28/20 12/25/21 Isosorbide Mononitrate [Isosorbide 30 mg PO DAILY 09/28/20 12/25/21 Mononitrate ER] Potassium Chloride 10 meq PO BID 09/28/20 12/25/21 traZODone [Desyrel] 50 mg pe PO HS PRN 09/28/20 12/25/21 Calcium Citrate/Vitamin D3 1 each PO DAILY 12/25/21 12/25/21 [Citracal-D3 200Mg-250 Unit Tab] Ferrous Sulfate [Slow Fe] 142 mg PO DAILY 12/25/21 12/25/21 Furosemide [Lasix] 20 mg PO DAILY PRN 12/25/21 12/25/21 Magnesium 250 mg PO DAILY 12/25/21 12/25/21 Multivitamin with Minerals [Hair, 1 each PO DAILY 12/25/21 12/25/21 Skin and Nails] Prazosin [Minipress] 1 mg PO HS 12/25/21 12/25/21 carvediloL [Coreg] 6.25 mg PO BID 12/25/21 12/25/21 Amox/Clav 875/125 [Augmentin 1 tablet PO BID #10 tablet 12/27/21 875/125 Tab] Lactobacillus Rhamnosus GG 1 cap PO DAILY #5 cap 12/27/21 [Culturelle] guaiFENesin [Mucinex] 600 mg PO BID #10 tablet 12/27/21 Amox/Clav 875/125 [Augmentin] 1 each PO Q12H #14 tablet 09/07/22 Azithromycin [Zithromax] 1 tab PO DAILY #4 tab 09/07/22 oxyCODONE [Roxicodone] 5 mg PO Q6H PRN #10 tablet 09/07/22 Amoxicillin/Potassium Clav 1 each PO BID #20 ea 01/20/24 [Augmentin Xr 1,000-62.5 Tab] Doxycycline [Vibramycin] 100 mg PO BID #10 tablet 01/20/24 - Allergies Allergies/Adverse Reactions: Allergies Allergy/AdvReac Type Severity Reaction Status Date / Time iodine Allergy Rash Verified 01/21/24 16:17 NSAIDS (Non-Steroidal Allergy abd pain Verified 01/21/24 16:17 Anti-Inflamma pregabalin [From Lyrica] Allergy muscle Verified 01/21/24 16:17 spasms zolpidem tartrate * AdvReac Intermediate Hallucinati Verified 01/21/24 16:17 [From Ambien] ons amitriptyline AdvReac Hallucinati Verified 01/21/24 16:17 ons fentanyl AdvReac Hallucinati Verified 01/21/24 16:17 ons gabapentin AdvReac Hallucinati Verified 01/21/24 16:17 ons artichokes Allergy Unknown Uncoded 01/21/24 16:17 cantelope Allergy Unknown Uncoded 01/21/24 16:17 shellfish Allergy Unknown Uncoded 01/21/24 16:17 Review of Systems - Cardiovascular Cariovascular: reports: Irregular heart rate, Syncope. denies: Palpitations, Chest pain - Respiratory Respiratory: reports: Cough, Sputum production, SOB at rest, SOB with exertion - All Other Systems All Other Systems: reports: Reviewed and negative Exam - Vital Signs Reviewed Vital Signs: Yes Vital Signs: Vital Signs x48h Temp Pulse Resp BP Pulse Ox O2 Flow Rate 01/21/24 17:47 83 22 2 01/21/24 17:07 85 16 108/81 H 94 01/21/24 16:17 84 16 113/52 L 94 01/21/24 16:15 95 2 01/21/24 16:12 36.5 C 91 18 113/56 L 85 L - Physical Exam General Appearance: positive: No acute distress Eyes Bilateral: positive: Normal inspection ENT: positive: ENT inspection nml Neck: positive: Nml inspection, Thyroid nml, No JVD Respiratory: positive: Chest non-tender, Rales, Rhonchi. negative: Wheezes Cardiovascular: positive: Other (Multiple PVCs, sinus rhythm). negative: No murmur, No gallop Abdomen: positive: Non-tender, No organomegaly, Nml bowel sounds Skin: positive: Other (Venous stasis dermatitis of the bilateral lower extremities) Extremities: positive: No pedal edema Neurologic/Psychiatric: positive: Oriented x3 Conclusion/Plan - Problem List (1) Acute and chronic respiratory failure with hypoxia Conclusion/Plan: Patient with a known history of interstitial lung disease and bronchiectasis who requires nocturnal oxygen at baseline presented to the ED with a syncopal event and subsequent documented hypoxia. Most likely patient's syncope was secondary to hypoxia as this was measured shortly after the syncopal event. This is likely an exacerbation of the patient's underlying interstitial lung disease, with minimal elevation in WBC which may be attributed to the syncopal event and fall. CT from yesterday and chest x-ray from today do not show any obvious signs of infection however given the patient's underlying lung disease, may benefit from atypical antibiotic coverage pending clinical course. Provide supportive oxygen as needed, wean as able Solu-Medrol 125 mg given in the ED. Will continue with prednisone 40 mg p.o. in a.m. and titrate up if necessary. (2) Syncope Conclusion/Plan: Syncopal events at home most likely secondary to hypoxia given the oxygen saturation of 80% measured by EMS shortly after arrival. Head CT and cervical spine CT are unremarkable for acute findings. Given history of cardiac disease that was verbally reported as CHF but not well- documented given her most recent echocardiogram in the chart shows EF of 60 to 65%, will check echocardiogram as well as carotid ultrasound. Qualifiers: Syncope type: unspecified Qualified Code(s): R55 - Syncope and collapse (3) Atrial fibrillation Conclusion/Plan: Persistent A-fib, not anticoagulated. Rate controlled Continue home medications and monitor rhythm. Qualifiers: Atrial fibrillation type: paroxysmal Qualified Code(s): I48.0 - Paroxysmal atrial fibrillation (4) ILD (interstitial lung disease) Conclusion/Plan: As above, continue current medications and steroid burst. Patient will require outpatient follow-up for CT scan obtained on 01/20/2024. - Lab Results Lab results reviewed: Yes Fish Bones: 01/21/24 16:20 01/21/24 16:20 - Diagnostic Imaging Results Diagnostic Imaging Results: positive: Final report reviewed - EKG Results EKG Interpreted Independently: Yes Core Measures - Anticipated LOS I expect patient to be DC'd or transferred within 96 hours.: Yes - DVT/VTE - Prophylaxis VTE/DVT Device ordered at admit?: Yes
[2024-01-21] MEDS ORDERED: FUROSEMIDE 20 MG TABLET PO PRN (18:48)
[2024-01-21 19:29] LABS: B. PARAPERTUSSIS- RESP PCR PAN NOT DETECTED; B. PERTUSSIS- RESP PCR PANEL NOT DETECTED; C. PNEUMONIAE- RESP PCR PANEL NOT DETECTED; CORONAVIRUS 229E-RESP PCR NOT DETECTED; CORONAVIRUS HKU1-RESP PCR NOT DETECTED; CORONAVIRUS NL63-RESP PCR NOT DETECTED; CORONAVIRUS OC43-RESP PCR NOT DETECTED; HUMAN METAPNEUMOVIRUS NOT DETECTED; INFLUENZA A- RESP PCR PANEL NOT DETECTED; INFLUENZA B - RESP PCR PANEL NOT DETECTED; M. PNEUMONIAE- RESP PCR PANEL NOT DETECTED; PARAINFLUENZA VIRUS 1 NOT DETECTED; PARAINFLUENZA VIRUS 2 NOT DETECTED; PARAINFLUENZA VIRUS 3 NOT DETECTED; PARAINFLUENZA VIRUS 4 NOT DETECTED; RHINOVIRUS/ENTEROVIRUS NOT DETECTED; RSV- RESP PCR PANEL NOT DETECTED; SARS-CoV-2 -RESP PCR PANEL NOT DETECTED
[2024-01-21] MEDS: ATORVASTATIN 10 MG TABLET PO SCH (20:26)
[2024-01-21] MEDS: HYDROcod/ACETAM 5/325 MG TABLET PO PRN (20:26)
[2024-01-21] MEDS: carvediloL 3.125 MG TABLET PO SCH (20:27)
[2024-01-21] MEDS: guaiFENesin 600 MG TABLET PO SCH (20:27)
[2024-01-21] MEDS: HEPARIN 5,000 UNIT/ML VIAL SUBQ SCH (20:34)
[2024-01-21] MEDS: PANTOPRAZOLE 40 MG TABLET PO SCH (22:05)
[2024-01-21] MEDS: mycophenolate mofetiL 250 MG CAPSULE PO SCH (22:05)
[2024-01-21] MEDS: SODIUM CHLORIDE FLUSH 0.9% 10 ML SYRINGE IVP SCH (22:08)
[2024-01-22] MEDS: NYSTATIN POWDER 15 GM TOP SCH
[2024-01-22] MEDS ORDERED: ZINC OXIDE 12% OINT 57 GM TUBE TOP PRN (00:31)
[2024-01-22] MEDS ORDERED: PANTOPRAZOLE 40 MG TABLET PO SCH (07:00)
[2024-01-22] MEDS: ISOSORBIDE MONONITRATE ER 30 MG TABLET PO SCH (09:09)
[2024-01-22] MEDS: ASPIRIN EC 81 MG TABLET PO SCH (09:10)
[2024-01-22] MEDS: AZITHROMYCIN 250 MG TABLET PO SCH (09:10)
[2024-01-22] MEDS: MAGNESIUM OXIDE 400 MG TABLET PO SCH (09:10)
[2024-01-22] MEDS: MULTIVITAMIN TABLET PO SCH (09:11)
[2024-01-22] MEDS: FERROUS SULFATE 325 MG TABLET PO SCH (09:11)
[2024-01-22] MEDS: predniSONE 20 MG TABLET PO SCH (09:11)
[2024-01-22] MEDS: DRONEDARONE HCL 400 MG PO SCH ×3 (09:12→22:53)
--- NOTE | 2024-01-22 11:34 | Ultrasound Report ---
PROCEDURE: Carotid Doppler Complete INDICATIONS: syncope TECHNIQUE: Color and pulse Doppler interrogation was performed of both carotid systems, with image documentation and velocity measurements. COMPARISON: None. FINDINGS: The common carotid arteries are patent and demonstrate normal flow velocities. By velocity criteria, no hemodynamically significant stenosis can be seen within the internal carotid arteries. Normal nader earing waveforms are seen. Atherosclerotic change can be seen. Antegrade flow seen within the right vertebral artery. The flow within the left vertebral artery is n ot well evaluated, secondary to patient positioning. IMPRESSION: No hemodynamically significant stenosis is seen. Atherosclerotic changes are noted. The flow within the left vertebral artery is not well evaluated. Reviewed by: Cole Rolle MD on 01/22/2024 10:32 AM TANK Approved by: Cole Rolle MD on 01/22/2024 10:32 AM TANK Station ID: [id number]
[2024-01-22] MEDS: NYSTATIN CREAM 15 GM TUBE TOP SCH (12:48)
--- NOTE | 2024-01-22 13:36 | PHARMACY PROGRESS NOTE ---
- Best Possible Medication History Admit Date and Time: 01/21/241806 Processed by: Pharmacy Medications reviewed in ED?: Yes Medication History completed: Yes Patient Interview: Completed Secondary Source(s): Pharmacy records, Insurance records As the person ultimately responsible for medication therapy, providers are able to order a medication from an existing home medication list in [facility] via the "Reconcile Routine" prior to Confirmation of that medication by customer support executive. Such practice is discouraged except when the physician, in their clinical judgment, deems that a medical need exists for a medication without regard to previous use.
--- NOTE | 2024-01-22 16:30 | PROVIDER PROGRESS NOTE ---
Assessment/Plan - Problem List (1) Acute and chronic respiratory failure with hypoxia Assessment/Plan: Patient with acute on chronic respiratory failure with hypoxia with known history of interstitial lung disease and bronchiectasis. 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 Given that she has baseline no oxygen saturation at rest, and current 3 L oxygen requirement, continue steroid burst, supportive care, possible discharge home tomorrow. Given high risk with interstitial lung disease, continue empiric antibiotics with Zithromax although there is no clear definitive evidence of infection at this time. (2) Syncope Qualifiers: Syncope type: unspecified Qualified Code(s): R55 - Syncope and collapse Assessment/Plan: Likely secondary to hypoxia, Now thoroughly addressed with supportive oxygen Carotid ultrasound reassuring with no significant stenosis Follow-up results of echocardiogram (3) Atrial fibrillation Qualifiers: Atrial fibrillation type: paroxysmal Qualified Code(s): I48.0 - Paroxysmal atrial fibrillation (4) ILD (interstitial lung disease) Assessment/Plan: As above, continue steroid burst with prednisone 40 mg daily and provide supportive oxygen with weaning as able Continue Acapella - Current Meds Current Meds: Current Medications Generic Name Dose Route Start Last Admin Trade Name Freq PRN Reason Stop Dose Admin Hydrocodone Bitart/Acetaminophen 1 tab 01/21/24 18:07 01/21/24 20:26 Hydrocod/Acetam 5/325 Mg Tablet PO 1 tab Q4HR PRN Administration Pain 5 to 7 Aspirin 162 mg 01/22/24 09:00 01/22/24 09:10 Aspirin Ec 81 Mg Tablet PO 162 mg DAILY YONY Administration Atorvastatin Calcium 20 mg 01/21/24 21:00 01/21/24 20:26 Atorvastatin 10 Mg Tablet PO 20 mg QPM YONY Administration Azithromycin 500 mg 01/22/24 09:00 01/22/24 09:10 Azithromycin 250 Mg Tablet PO 01/24/24 09:01 500 mg DAILY YONY Administration Carvedilol 6.25 mg 01/21/24 21:00 01/22/24 09:10 Carvedilol 3.125 Mg Tablet PO 6.25 mg BID YONY Administration Ferrous Sulfate 325 mg 01/22/24 08:00 01/22/24 09:11 Ferrous Sulfate 325 Mg Tablet PO 325 mg DAILYWM YONY Administration Guaifenesin 600 mg 01/21/24 21:00 01/22/24 09:11 Guaifenesin 600 Mg Tablet PO 600 mg BID YONY Administration Heparin Sodium (Porcine) 5,000 unit 01/21/24 21:00 01/22/24 09:07 Heparin 5,000 Unit/Ml Vial SUBQ 5,000 unit BID YONY Administration Isosorbide Mononitrate 30 mg 01/22/24 09:00 01/22/24 09:09 Isosorbide Mononitrate Er 30 Mg Tablet PO 30 mg DAILY YONY Administration Magnesium Oxide 200 mg 01/22/24 08:00 01/22/24 09:10 Magnesium Oxide 400 Mg Tablet PO 200 mg DAILYWM YONY Administration Multivitamins 1 tab 01/22/24 09:00 01/22/24 09:11 Multivitamin Tablet PO 1 tab DAILY YONY Administration Nystatin 0 applic 01/21/24 22:00 01/22/24 09:09 Nystatin Powder 15 Gm TOP 1 applic BID YONY Administration Nystatin 1 applic 01/22/24 09:00 01/22/24 12:48 Nystatin Cream 15 Gm Tube TOP Not Given BID YONY Pantoprazole Sodium 40 mg 01/21/24 22:00 01/21/24 22:05 Pantoprazole 40 Mg Tablet PO 40 mg HS YONY Administration Patient Own Med ( 1 each 01/22/24 13:00 01/22/24 13:06 Dronedarone Hcl [ PO 1 each Multaq] 400 Mg 1000,2200 YONY Administration Tablet) Prednisone 40 mg 01/22/24 08:00 01/22/24 09:11 Prednisone 20 Mg Tablet PO 40 mg DAILYWM YONY Administration Sodium Chloride 10 ml 01/22/24 01:00 01/22/24 09:10 Sodium Chloride Flush 0.9% 10 Ml Syringe IVP 10 ml 0100,0900,1700 YONY Administration - Lab Result Lab results reviewed: Yes Fish Bone Diagrams: 01/21/24 16:20 01/21/24 16:20 - Additional Planning Condition/Complexity: Improved My Orders: My Active Orders 01/21/24 18:07 Activity Orders [RC] Q2HR IO [RC] IOSHIFT Incentive Spirometry - RT [RC] TID Initiate Bowel Care Protocol [RC] .protocol Initiate Line Care Protocol [RC] QSHIFT Initiate Personal Care Protoco [RC] .protocol Oxygen Therapy [RC] .PRN Telemetry- [RC] Q4HR Vital Signs [RC] Q4HR Acetaminophen [Tylenol] 650 mg PO Q4HR PRN HYDROcod/ACETAM 5/325 [[place] 5/325] 1 tab PO Q4HR PRN Ipratropium/Albuterol [Duoneb] 3 ml INH RTQ4H PRN Ondansetron Odt [Zofran Odt] 4 mg TL Q6HR PRN Sodium Chloride Flush 0.9% [Normal Saline Flush 0.9%] 10 ml IVP PRN PRN Code Status [OTHERS] Routine Condition of Patient [OTHERS] Routine DVT Prophylaxis [OTHERS] Routine 01/21/24 18:13 SCDs [RC] QSHIFT 01/21/24 18:16 Echo Complete w/Bubble Study [ECHO] Stat 01/21/24 18:48 Furosemide [Lasix] 20 mg PO DAILY PRN 01/21/24 21:00 Atorvastatin [Lipitor] 20 mg PO QPM Heparin [Heparin Sodium (Porcine)] 5,000 unit SUBQ BID carvediloL [Coreg] 6.25 mg PO BID guaiFENesin [Mucinex] 600 mg PO BID 01/22/24 00:31 Zinc Oxide [David Protect] 1 applic TOP PRN PRN 01/22/24 01:00 Sodium Chloride Flush 0.9% [Normal Saline Flush 0.9%] 10 ml IVP 0100,0900,1700 01/22/24 Breakfast Regular Diet [DIET] 01/22/24 08:00 Ferrous Sulfate [Feosol] 325 mg PO DAILYWM Magnesium Oxide [Mag Ox] 200 mg PO DAILYWM predniSONE [Deltasone] 40 mg PO DAILYWM 01/22/24 08:16 Acapella (Flutter Valve Device [RC] TID 01/22/24 09:00 Aspirin EC [Ecotrin] 162 mg PO DAILY Azithromycin [Zithromax] 500 mg PO DAILY Isosorbide Mononitrate ER [Imdur] 30 mg PO DAILY Multivitamin [Theragran] 1 tab PO DAILY Nystatin Cream [Mycostatin Cream] 1 applic TOP BID 01/22/24 13:00 Patient Own Med 1 each PO 1000,2200 Subjective - Subjective Patient Reports: Feeling Better Objective Vital Signs: Vital Signs - 24 hr 01/21/24 01/21/24 01/21/24 17:07 17:47 18:43 Temperature Heart Rate 85 83 Heart Rate [ Apical] Heart Rate [ Brachial] Respiratory 16 22 Rate Blood Pressure 108/81 H Blood Pressure [Right Brachial artery] O2 Saturation 94 If not protocol 2 2 : Oxygen Flow, liters/minute 01/21/24 01/21/24 01/21/24 20:32 21:15 23:00 Temperature 36.7 C 36.6 C Heart Rate Heart Rate [ 84 74 Apical] Heart Rate [ Brachial] Respiratory 21 20 Rate Blood Pressure Blood Pressure 115/52 L 107/60 [Right Brachial artery] O2 Saturation 91 L 93 If not protocol 3 3 3 : Oxygen Flow, liters/minute 01/22/24 01/22/24 01/22/24 04:51 07:26 13:06 Temperature 36.5 C 36.5 C 36.6 C Heart Rate Heart Rate [ 75 67 Apical] Heart Rate [ 89 Brachial] Respiratory 18 18 16 Rate Blood Pressure Blood Pressure 98/53 L 117/54 L 116/60 [Right Brachial artery] O2 Saturation 96 95 96 If not protocol 3 3 : Oxygen Flow, liters/minute 01/22/24 16:03 Temperature 36.7 C Heart Rate Heart Rate [ Apical] Heart Rate [ 85 Brachial] Respiratory 17 Rate Blood Pressure Blood Pressure 92/64 [Right Brachial artery] O2 Saturation 94 If not protocol 2 : Oxygen Flow, liters/minute Oxygen O2 Source Nasal cannula Oxygen Flow Rate 2 I&O (Last 24 Hrs): Intake and Output Totals x24h 01/20/24 01/21/24 01/22/24 23:59 23:59 23:59 Intake Total 1130 Output Total 850 Balance 280 General: Alert, Oriented x3 Cardiovascular: Regular rate, Normal S1, Normal S2 Respiratory: Chest non-tender, No respiratory distress, Rhonchi Abdomen: Normal bowel sounds, No tenderness - Results Results: Laboratory Results WBC 12.1 x10^3/uL (4.8-10.8) H 01/21/24 16:20 RBC 3.24 10^6/uL (4.20-5.40) L 01/21/24 16:20 Hgb 10.6 g/dL (12.0-16.0) L 01/21/24 16:20 Hct 34.3 % (37.0-47.0) L 01/21/24 16:20 MCV 105.9 fL (81.0-99.0) H 01/21/24 16:20 MCH 32.7 pg (27.0-31.0) H 01/21/24 16:20 MCHC 30.9 g/dL (32.0-36.0) L 01/21/24 16:20 RDW 13.4 % (12.0-15.0) 01/21/24 16:20 Plt Count 250 10^3/uL (130-450) 01/21/24 16:20 MPV 10.4 fL (7.9-10.8) 01/21/24 16:20 Neut # (Auto) 8.4 10^3/uL (1.5-6.6) H 01/21/24 16:20 Lymph # (Auto) 2.0 10^3/uL (1.5-3.5) 01/21/24 16:20 Dent # (Auto) 1.3 10^3/uL (0.0-1.0) H 01/21/24 16:20 Eos # (Auto) 0.3 10^3/uL (0.0-0.7) 01/21/24 16:20 Baso # (Auto) 0.1 10^3/uL (0.0-0.1) 01/21/24 16:20 Absolute Nucleated RBC 0.00 x10^3/uL 01/21/24 16:20 Nucleated RBC % 0.0 /100WBC 01/21/24 16:20 Sodium 138 mmol/L (135-145) 01/21/24 16:20 Potassium 4.2 mmol/L (3.5-4.5) 01/21/24 16:20 Chloride 104 mmol/L (101-111) 01/21/24 16:20 Carbon Dioxide 29 mmol/L (21-32) 01/21/24 16:20 Anion Gap 5.0 (6-13) L 01/21/24 16:20 BUN 14 mg/dL (6-20) 01/21/24 16:20 Creatinine 0.7 mg/dL (0.6-1.3) 01/21/24 16:20 Estimated GFR (MDRD) 81 (>89) L 01/21/24 16:20 Glucose 113 mg/dL (74-104) H 01/21/24 16:20 Calcium 9.8 mg/dL (8.5-10.3) 01/21/24 16:20 Magnesium 2.0 mg/dL (1.7-2.3) 01/21/24 21:50 Total Bilirubin 0.5 mg/dL (0.2-1.0) 01/21/24 16:20 AST 22 IU/L (10-42) 01/21/24 16:20 ALT 12 IU/L (10-60) 01/21/24 16:20 Alkaline Phosphatase 58 IU/L (42-121) 01/21/24 16:20 Troponin I High Sens 10.1 ng/L (2.3-14.8) 01/21/24 16:20 B-Natriuretic Peptide 726 pg/mL (5-100) H 01/21/24 16:20 Total Protein 6.7 g/dL (6.4-8.9) 01/21/24 16:20 Albumin 3.7 g/dL (3.2-5.5) 01/21/24 16:20 Globulin 3.0 g/dL (2.1-4.2) 01/21/24 16:20 Albumin/Globulin Ratio 1.2 (1.0-2.2) 01/21/24 16:20 Lipase < 10 U/L (11-82) L 01/21/24 16:20 Procalcitonin Immunoas < 0.05 ng/mL (<0.5) 01/21/24 21:50 Nasal Adenovirus (PCR) NOT DETECTED 01/21/24 18:20 Nasal B. parapertussis DNA (PCR) NOT DETECTED 01/21/24 18:20 Nasal Coronavir 229E PCR NOT DETECTED 01/21/24 18:20 Nasal Coronavir HKU1 PCR NOT DETECTED 01/21/24 18:20 Nasal Coronavir NL63 PCR NOT DETECTED 01/21/24 18:20 Nasal Coronavir OC43 PCR NOT DETECTED 01/21/24 18:20 Nasal Enterovir/Rhinovir PCR NOT DETECTED 01/21/24 18:20 Nasal Influenza B PCR NOT DETECTED 01/21/24 18:20 Nasal Influenza A PCR NOT DETECTED 01/21/24 18:20 Nasal Parainfluen 1 PCR NOT DETECTED 01/21/24 18:20 Nasal Parainfluen 2 PCR NOT DETECTED 01/21/24 18:20 Nasal Parainfluen 3 PCR NOT DETECTED 01/21/24 18:20 Nasal Parainfluen 4 PCR NOT DETECTED 01/21/24 18:20 Nasal RSV (PCR) NOT DETECTED 01/21/24 18:20 Nasal B.pertussis DNA PCR NOT DETECTED 01/21/24 18:20 Nasal C.pneumoniae (PCR) NOT DETECTED 01/21/24 18:20 Stephan Human Metapneumo PCR NOT DETECTED 01/21/24 18:20 Nasal M.pneumoniae (PCR) NOT DETECTED 01/21/24 18:20 Nasal SARS-CoV-2 (PCR) NOT DETECTED 01/21/24 18:20 - Procedures Procedures: Procedures CATARAC PHACOEMULS/ASPIR (07/10/14) INSERT LENS AT CATAR EXT (07/10/14) INSERTION OF INFUSION DEV INTO SUP VENA CAVA, PERC APPROACH (08/08/15) INSPECTION OF LOWER INTESTINAL TRACT, ENDO (06/11/19) REPOSITION R UP FEMUR WITH INTRAMED FIX, PERC APPROACH (06/14/18) ULTRASONOGRAPHY OF SUPERIOR VENA CAVA, GUIDANCE (08/08/15) ABX Reporting Has patient been on IV antibiotics over the past 48 hours?: No Current Medications - Current Medications Current Medications: Active Medications Generic Name Dose Route Start Last Admin Trade Name Freq PRN Reason Stop Dose Admin Acetaminophen 650 mg 01/21/24 18:07 Acetaminophen 325 Mg Tablet PO Q4HR PRN Pain 1 to 4, or Fever Hydrocodone Bitart/Acetaminophen 1 tab 01/21/24 18:07 01/21/24 20:26 Hydrocod/Acetam 5/325 Mg Tablet PO 1 tab Q4HR PRN Administration Pain 5 to 7 Albuterol/Ipratropium 3 ml 01/21/24 18:07 Ipratropium/Albuterol 3 Ml Neb INH RTQ4H PRN Wheezing Aspirin 162 mg 01/22/24 09:00 01/22/24 09:10 Aspirin Ec 81 Mg Tablet PO 162 mg DAILY YONY Administration Atorvastatin Calcium 20 mg 01/21/24 21:00 01/21/24 20:26 Atorvastatin 10 Mg Tablet PO 20 mg QPM YONY Administration Azithromycin 500 mg 01/22/24 09:00 01/22/24 09:10 Azithromycin 250 Mg Tablet PO 01/24/24 09:01 500 mg DAILY YONY Administration Carvedilol 6.25 mg 01/21/24 21:00 01/22/24 09:10 Carvedilol 3.125 Mg Tablet PO 6.25 mg BID YONY Administration Ferrous Sulfate 325 mg 01/22/24 08:00 01/22/24 09:11 Ferrous Sulfate 325 Mg Tablet PO 325 mg DAILYWM YONY Administration Furosemide 20 mg 01/21/24 18:48 Furosemide 20 Mg Tablet PO DAILY PRN EDEMA Guaifenesin 600 mg 01/21/24 21:00 01/22/24 09:11 Guaifenesin 600 Mg Tablet PO 600 mg BID YONY Administration Heparin Sodium (Porcine) 5,000 unit 01/21/24 21:00 01/22/24 09:07 Heparin 5,000 Unit/Ml Vial SUBQ 5,000 unit BID YONY Administration Isosorbide Mononitrate 30 mg 01/22/24 09:00 01/22/24 09:09 Isosorbide Mononitrate Er 30 Mg Tablet PO 30 mg DAILY YONY Administration Magnesium Oxide 200 mg 01/22/24 08:00 01/22/24 09:10 Magnesium Oxide 400 Mg Tablet PO 200 mg DAILYWM YONY Administration Multi-Ingredient Ointment 1 applic 01/22/24 00:31 Zinc Oxide 12% Oint 57 Gm Tube TOP PRN PRN Skin Care Multivitamins 1 tab 01/22/24 09:00 01/22/24 09:11 Multivitamin Tablet PO 1 tab DAILY YONY Administration Mycophenolate Mofetil 1,000 mg 01/22/24 13:29 Mycophenolate Mofetil 250 Mg Capsule PO BID YONY Nystatin 0 applic 01/21/24 22:00 01/22/24 09:09 Nystatin Powder 15 Gm TOP 1 applic BID YONY Administration Nystatin 1 applic 01/22/24 09:00 01/22/24 12:48 Nystatin Cream 15 Gm Tube TOP Not Given BID [facility] Ondansetron HCl 4 mg 01/21/24 18:07 Ondansetron Odt 4 Mg Tablet TL Q6HR PRN Nausea / Vomiting Pantoprazole Sodium 40 mg 01/21/24 22:00 01/21/24 22:05 Pantoprazole 40 Mg Tablet PO 40 mg HS YONY Administration Patient Own Med ( 1 each 01/22/24 13:00 01/22/24 13:06 Dronedarone Hcl [ PO 1 each Multaq] 400 Mg 1000,2200 YONY Administration Tablet) Prednisone 40 mg 01/22/24 08:00 01/22/24 09:11 Prednisone 20 Mg Tablet PO 40 mg DAILYWM YONY Administration Sodium Chloride 10 ml 01/21/24 18:07 Sodium Chloride Flush 0.9% 10 Ml Syringe IVP PRN PRN NEEDED PER PROVIDER ORDERS Sodium Chloride 10 ml 01/22/24 01:00 01/22/24 09:10 Sodium Chloride Flush 0.9% 10 Ml Syringe IVP 10 ml 0100,0900,1700 YONY Administration Atorvastatin Calcium [Lipitor] 20 mg PO QPM 05/31/13 Mycophenolate Mofetil [Cellcept] 1,000 mg PO BID 05/31/13 Pantoprazole Sodium 40 mg PO HS 05/31/13 Vitamin B Complex [B Complex] 1 each PO DAILY 08/08/15 Duloxetine HCl [Cymbalta] 60 mg PO DAILY 10/10/16 Multivitamin [Theragran] 1 tab PO DAILY 10/10/16 Valacyclovir HCl [Valacyclovir] 500 mg PO DAILY 10/10/16 predniSONE [Prednisone] 5 mg PO DAILY 10/10/16 Aspirin [Aspirin EC] 162 mg PO DAILY 09/28/20 Dronedarone HCl [Multaq] 400 mg PO BID 09/28/20 Isosorbide Mononitrate [Isosorbide Mononitrate ER] 30 mg PO DAILY 09/28/20 Potassium Chloride 10 meq PO BID 09/28/20 Calcium Citrate/Vitamin D3 [Citracal-D3 200Mg-250 Unit Tab] 1 each PO DAILY 12/25/21 Ferrous Sulfate [Slow Fe] 142 mg PO DAILY 12/25/21 Magnesium 250 mg PO DAILY 12/25/21 carvediloL [Coreg] 6.25 mg PO BID 12/25/21 estradioL vaginal [Estrace vaginal] 0.5 - 1 g TOP UD 01/22/24
[2024-01-22] MEDS: mycophenolate mofetiL 250 MG CAPSULE PO SCH (20:30)
[2024-01-22] MEDS ORDERED: mycophenolate mofetiL 250 MG CAPSULE PO SCH (21:00)
[2024-01-23] MEDS: DRONEDARONE HCL 400 MG PO SCH (09:00)
--- NOTE | 2024-01-23 12:39 | Discharge Plan ---
Discharge Plan Problem Reviewed?: Yes Disposition: Home, Self Care Condition: Stable Prescriptions: predniSONE [Deltasone] 40 mg PO DAILYWM #2 tab Diet: Cardiac Activity Restrictions: Activity as Tolerated Shower Restrictions: Yes (Use a shower chair) Driving Restrictions: Yes (No driving) Instruction Topics: Interstitial Lung Disease Coping, Disease Interstitial Lung Health Concerns: You were admitted to the hospital for 2 reasons. 1 is that you passed out, and the other is because your breathing was worse. It is most likely that your breathing and low oxygen saturations are the cause of you passing out at home. When you arrived to the hospital, you were started on steroids including IV Solu-Medrol which was then changed to oral prednisone. Please take this for 2 more days as I would like you to have a total of 5 days of steroids at higher doses. You can continue to take the 5 mg prednisone that you normally take during this time, and then continue taking the 5 mg after you complete the 40 mg dose that I sent to your pharmacy. As far as passing out is concerned, we checked an echocardiogram and a carotid ultrasound to make sure there is nothing within those areas that could have caused you to pass out. Fortunately, your carotid arteries show that there are no significant narrowing areas in the arteries of your neck. . Unfortunately for some reason I still do not have the results of your echocardiogram, this may have to do with the delay over the weekend getting studies interpreted. However, your PCP should be able to request the results by contacting the medical records office in the next few days. Plan of Treatment: Retreatment will now consist of home oxygen use, currently at 2 L by nasal cannula. I suspect he will need to continue using this [id number] until you are able to follow-up with your community health advocate. As stated above, the other treatment will be increased dose of prednisone, 40 mg, for the next 2 days. This is called a steroid burst. I sent you a prescription for 2 more days to [facility] as this will complete a total of 5 days of the steroid burst. After this, you can resume using the low-dose 5 mg prednisone you were taking before your hospital admission. Follow-Up Care: [facility] - Pulmonary No Smoking: If you smoke, Please STOP! Call for help.
--- NOTE | 2024-01-23 15:41 | DISCHARGE SUMMARY ---
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 Patient has a known history of interstitial lung disease with bronchiectasis who was at this hospital yesterday for a scheduled outpatient chest CT. Later in the evening after returning home she found herself short of breath and return to the ER for evaluation and was diagnosed with possible community-acquired pneumonia and was discharged home with prescription for Augmentin and doxycycline. Today she says she was feeling weak and short of breath, she stood up and the next thing she knew she was on the ground having passed out. Reportedly she was on the ground for what she felt to be half an hour or so before she was found by her . She was complaining of generalized aches and pains including in her head and neck. She denied any chest pain. Paramedics were called and upon arrival she was reportedly saturating 80% on room air. She is normally not hypoxic during the daytime but does use nighttime oxygen. In the ED, chest x-ray was negative for acute infiltrates.The CT scan from yesterday showed groundglass opacities with nonspecific infection versus inflammatory and reactive etiology.WBC was 12.Vital signs were stable and she was afebrile.COVID test at the time of admission is pending.Troponin is negative and BNP is elevated at 726. Due to some right lower extremity edema and erythema ultrasound was obtained which was negative for DVT.She was given a dose of Solu-Medrol 125 mg in the ED. She was placed on 3 L nasal cannula and responded well, but given her history, syncopal events, and age with risk factors, observation admission was requested. - HOSPITAL COURSE Hospital Course: On admission, patient was diagnosed with acute on chronic respiratory failure with hypoxia. Chest x-ray as well as CT scan from the day of admission did not demonstrate any clear obvious sign of infection and were more typical of progressive interstitial lung disease. In any case, given her risk factors, she was kept on atypical coverage with azithromycin x 3 days.She was also started on Solu-Medrol 125 mgIn the emergency department which was then changed to prednisone 40 mg daily after admission. She was placed on supportive oxygen as needed, initially starting as high as 4 to 5 L, and eventually weaning down.Due to the syncope event, an echocardiogram was obtained, and the results at the time of discharge are not available for review. However, a carotid ultrasound was also obtained and results of this are available and they demonstrate no significant stenosis. Patient remained rate controlled in A-fib throughout the hospitalization and had no consequences of her atrial fibrillation. Patient's overall clinical course progressed well, as her breathing improved, lung sounds improved, and her oxygen saturation improved such that she was able to wean to 2 to 3 L of oxygen at rest. This is still however a higher oxygen demand than her baseline which was previously no oxygen requirement during the day, and 2 L at night. I feel that her current admission is a representation of the overall progression of interstitial lung disease rather than an acute episode that will completely resolve. It is very likely, that she will remain chronically oxygen dependent for the remainder of her life. For this reason, she was felt to be stable and medically safe for discharge. Respiratory therapy performed an oxygen desaturation evaluation and on room air, she would desaturate to the low 80% range at rest. She was placed on 2 to 3 L nasal cannula and was able to maintain 92 to 94% oxygen. She will require continuous oxygen supplementation of 2 to 3 L at rest, and likely 3 to 4 L with ambulation. Patient does have an oxygen concentrator at home, and once arrangements were confirmed, she was discharged home with a prescription for 2 more days of p rednisone with recommendations to follow-up with her PCP and dental insurance biller. - ALLERGIES Allergies/Adverse Reactions: Allergies Allergy/AdvReac Type Severity Reaction Status Date / Time iodine Allergy Rash Verified 01/21/24 16:17 NSAIDS (Non-Steroidal Allergy abd pain Verified 01/21/24 16:17 Anti-Inflamma pregabalin [From Lyrica] Allergy muscle Verified 01/21/24 16:17 spasms zolpidem tartrate * AdvReac Intermediate Hallucinati Verified 01/21/24 16:17 [From Ambien] ons amitriptyline AdvReac Hallucinati Verified 01/21/24 16:17 ons fentanyl AdvReac Hallucinati Verified 01/21/24 16:17 ons gabapentin AdvReac Hallucinati Verified 01/21/24 16:17 ons artichokes Allergy Unknown Uncoded 01/21/24 16:17 cantelope Allergy Unknown Uncoded 01/21/24 16:17 shellfish Allergy Unknown Uncoded 01/21/24 16:17 - MEDICATIONS Home Medications: Ambulatory Orders Medication Instructions Recorded Confirmed Atorvastatin Calcium [Lipitor] 20 mg PO QPM 05/31/13 01/22/24 Mycophenolate Mofetil [Cellcept] 1,000 mg PO BID 05/31/13 01/22/24 Pantoprazole Sodium 40 mg PO HS 05/31/13 01/22/24 Vitamin B Complex [B Complex] 1 each PO DAILY 08/08/15 01/22/24 Duloxetine HCl [Cymbalta] 60 mg PO DAILY 10/10/16 01/22/24 Multivitamin [Theragran] 1 tab PO DAILY 10/10/16 01/22/24 Valacyclovir HCl [Valacyclovir] 500 mg PO DAILY 10/10/16 01/22/24 predniSONE [Prednisone] 5 mg PO DAILY 10/10/16 01/22/24 Aspirin [Aspirin EC] 162 mg PO DAILY 09/28/20 01/22/24 Dronedarone HCl [Multaq] 400 mg PO BID 09/28/20 01/22/24 Isosorbide Mononitrate [Isosorbide 30 mg PO DAILY 09/28/20 01/22/24 Mononitrate ER] Potassium Chloride 10 meq PO BID 09/28/20 01/22/24 Calcium Citrate/Vitamin D3 1 each PO DAILY 12/25/21 01/22/24 [Citracal-D3 200Mg-250 Unit Tab] Ferrous Sulfate [Slow Fe] 142 mg PO DAILY 12/25/21 01/22/24 Magnesium 250 mg PO DAILY 12/25/21 01/22/24 carvediloL [Coreg] 6.25 mg PO BID 12/25/21 01/22/24 Lactobacillus Rhamnosus GG 1 cap PO DAILY #5 cap 12/27/21 01/22/24 [Culturelle] estradioL vaginal [Estrace vaginal] 0.5 - 1 g TOP UD 01/22/24 01/22/24 Furosemide [Lasix] 20 mg PO DAILY PRN tab 06/17/24 guaiFENesin [Mucinex] 600 mg PO BID tab 01/23/24 predniSONE [Deltasone] 40 mg PO DAILYWM #2 tab 01/23/24 - PHYSICAL EXAM AT DISCHARGE Cardiovascular: positive: No murmur, No gallop, Irregularly irregular Peripheral Pulses: positive: 2+ Abdomen: positive: Non-tender Rectal: positive: Non-tender Skin: positive: Other (Bilateral lower extremity discoloration consistent with venous stasis dermatitis) Neurologic/Psychiatric: positive: Oriented x3, CN's nml (2-12), Motor nml - LABS Result Diagrams: 01/21/24 16:20 01/21/24 16:20 - DIAGNOSTIC IMAGING Diagnostic Imaging Results: Final report reviewed - TIME SPENT Time Spent in Discharge (Minutes): 60
[2024-01-23 16:02] VITALS: BP 111/54; O2SAT 93
== END 2024-01-23 18:30 | disposition home or self-care (01) ==
LOC: EDUNIT# → ED 16:07 → MS2 18:07
PROVIDERS: ADMIT Family Medicine Sports Medicine; ATTEND Family Medicine Sports Medicine
DX: J96.21 Acute and chronic respiratory failure with hypoxia (principal); Z99.81 Dependence on supplemental oxygen; J84.9 Interstitial pulmonary disease, unspecified; J47.9 Bronchiectasis, uncomplicated; J44.9 Chronic obstructive pulmonary disease, unspecified; J43.9 Emphysema, unspecified; I11.0 Hypertensive heart disease with heart failure; I50.9 Heart failure, unspecified; I25.10 Atherosclerotic heart disease of native coronary artery without angina pectoris; G47.30 Sleep apnea, unspecified; I48.0 Paroxysmal atrial fibrillation; S00.83XA Contusion of other part of head, initial encounter; W18.30XA Fall on same level, unspecified, initial encounter; Y92.009 Unspecified place in unspecified non-institutional (private) residence as the place of occurrence of the external cause; R22.42 Localized swelling, mass and lump, left lower limb; E78.00 Pure hypercholesterolemia, unspecified
CPT/HCPCS: 36415; 70450; 71045; 72125; 80053; 83690; 83735; 83880; 84145; 84484; 85025; 87633; 93005; 93307; 93880; 93971; 94640; 96365; 96366; 96372; 96375; 99284; 99285; A9270; G0378; J7512

== ENCOUNTER 2024-02-29 08:00 | Outpatient (CLI) | payer MEDICARE, OTHER | END 2024-02-29 23:59 | disposition home or self-care (01) | LOC: LAB.WCP 08:00 | PROVIDERS: ATTEND Nurse Practitioner | DX: L03.116 Cellulitis of left lower limb (principal) | CPT/HCPCS: 87070; 87205 ==

== ENCOUNTER 2024-10-05 03:51 | Inpatient (IN) ==
--- NOTE | 2024-10-05 04:16 | ED Physician Documentation ---
History of Present Illness Stated complaint Stated Complaint: R HAND SWELLING Chief complaint Chief Complaint: Wound Additonal information Additional information: HPI from patient. Patient complains of RUE pain, swelling, erythema. This began 2 or 3 days ago, initially localized to the extensor surface of the right third MCP joint. There was no injury. She denies history of similar symptoms/signs. The swelling, pain, and erythema have gradually spread to the entirety of the dorsal surface of the right hand except for the fingers (there is slight extension of sign/symptoms to the dorsal surface of the right middle finger). She feels pain and tenderness as high as the right elbow although the erythema has not extended that far. Patient is right hand-dominant Meds/Allgy Home Medications Ambulatory Orders Medication Instructions Recorded Confirmed inulin 2 gram chewable tablet 4 g PO QDAY 05/22/24 09/05/24 (Fiber Gummies) prazosin 1 mg capsule 1 mg PO QPM 05/22/24 09/05/24 vitamin B complex 2 tab PO QDAY 05/22/24 09/05/24 acetaminophen 325 mg tablet 325 - 650 mg PO QDAY PRN pain 06/05/24 09/05/24 ascorbic acid (vitamin C) 500 mg 500 mg PO QDAY 06/05/24 09/05/24 tablet aspirin 81 mg tablet,delayed 162 mg PO QDAY 06/05/24 09/05/24 release atorvastatin 20 mg tablet (Lipitor) 20 mg PO QPM 06/05/24 09/05/24 calcium 200 mg (as 1 tab PO QDAY 06/05/24 09/05/24 citrate)-vitamin D3 6.25 mcg (250 unit) tablet (Citracal-D3 Petites) carvedilol 6.25 mg tablet (Coreg) 6.25 mg PO BID 06/05/24 09/05/24 cholecalciferol (vitamin D3) 25 25 mcg PO QDAY 06/05/24 09/05/24 mcg (1,000 unit) tablet dronedarone 400 mg tablet (Multaq) 400 mg PO BID 06/05/24 09/05/24 duloxetine 60 mg capsule,delayed 60 mg PO QDAY 06/05/24 09/05/24 release (Cymbalta) estradiol 0.01% (0.1 mg/gram) 0.5 - 1 g topical QWEEK 06/05/24 09/05/24 vaginal cream ferrous sulfate 142 mg (45 mg 142 mg PO QDAY 06/05/24 09/05/24 iron) tablet,extended release (Slow Fe) glycerin (adult) 1 supp IN QDAY PRN constipation 06/05/24 09/05/24 hydromorphone (PF) 10 mg/mL 6.9 mg IM DIRECTED 06/05/24 09/05/24 injection solution isosorbide mononitrate 30 mg 30 mg PO QDAY 06/05/24 09/05/24 tablet,extended release 24 hr multivitamin-ferrous 1 tab PO QDAY 06/05/24 09/05/24 fumarate-folic acid 18 mg-400 mcg tablet (One Daily Multivitamin with Iron (folic acid)) mycophenolate mofetil 500 mg 1,000 mg PO BID 06/05/24 09/05/24 tablet (CellCept) nitroglycerin 0.4 mg sublingual 0.4 mg sublingual Q5M PRN chest 06/05/24 09/05/24 tablet pain pantoprazole 40 mg tablet,delayed 40 mg PO QDAY 06/05/24 09/05/24 release potassium chloride 10 mEq 10 meq PO BID 06/05/24 09/05/24 capsule,extended release valacyclovir 500 mg tablet 500 mg PO QDAY #90 tabs 06/06/24 09/05/24 nystatin 100,000 unit/gram topical 1 applic topical BID #60 grams 06/26/24 09/05/24 powder magnesium 250 mg tablet 250 mg PO BID #30 tabs 08/03/24 09/05/24 prednisone 20 mg tablet See Rx Instructions .Route 08/03/24 09/05/24 .COMPLEX #19 tabs clobetasol 0.05 % topical ointment See Rx Instructions .Route 08/10/24 09/05/24 .COMPLEX #60 grams prednisone 5 mg tablet 5 mg PO DAILY 08/10/24 09/05/24 hydrocodone 5 mg-acetaminophen 325 1 tab PO Q4H PRN pain #30 tabs 08/17/24 09/05/24 mg tablet sulfamethoxazole 400 2 tab PO BID 7 days #28 tabs 08/24/24 09/05/24 mg-trimethoprim 80 mg tablet (Bactrim) ondansetron 4 mg disintegrating 4 mg PO Q8H PRN nausea and 08/30/24 09/05/24 tablet vomiting #60 tabs furosemide 20 mg tablet 20 mg PO DAILY #30 tabs 08/31/24 09/05/24 Allergies Allergies Allergy/AdvReac Type Severity Reaction Status Date / Time iodine Allergy Severe Rash Verified 10/05/24 04:05 isoniazid Allergy Severe Rash Verified 10/05/24 04:05 zolpidem (From Ambien) Allergy Severe Hallucinati Verified 10/05/24 04:05 ons adhesive tape Allergy Intermediate Rash Verified 09/05/24 15:32 artichoke Allergy Unknown Verified 10/05/24 04:05 pregabalin (From Lyrica) Allergy muscle Verified 10/05/24 04:05 spasms NSAIDS (Non-Steroidal AdvReac Intermediate abd pain Verified 10/05/24 04:05 Anti-Inflamma cantaloupe AdvReac Mild abdomen Verified 10/05/24 04:05 swells, makes her miserable. amitriptyline AdvReac Hallucinati Verified 09/05/24 15:32 ons fentanyl AdvReac Hallucinati Verified 10/05/24 04:05 ons gabapentin AdvReac Hallucinati Verified 10/05/24 04:05 ons PFSH Active Problems All Active Problems (Updated 10/05/24 @ 06:47 by Baltazar Crain MD) Cellulitis (Acute) Irritable bowel syndrome (Acute) Abdominal hernia (Acute 06/15/23) Candidiasis of mouth (Acute) MRSA infection (Acute) Pain in right leg (Acute) Lipodermatosclerosis of right lower extremity (Acute) Superficial bruising of lower leg (Acute) Atrial fibrillation with controlled ventricular rate (Acute) Long-term use of immunosuppressant medication (Acute) prison (current) use of systemic steroids (Acute) Pleuritic chest pain (Acute) Pain of left calf (Acute) Shortness of breath (Acute) Cellulitis of left lower limb (Acute) Foot pain, left (Acute) Local infection of the skin and subcutaneous tissue, unspecified (Chronic) Pseudomonas aeruginosa infection (Chronic) Edema (Chronic) Non-pressure chronic ulcer of other part of left lower leg with fat layer exposed (Chronic) Venous insufficiency (chronic) (peripheral) (Chronic) Presence of pessary (Chronic) PVD (peripheral vascular disease) (Chronic 11/03/21) GERD (gastroesophageal reflux disease) (Chronic 04/26/11) Hyperlipidemia (Chronic 03/08/16) Fibromyalgia (Chronic 12/22/21) CAD (coronary artery disease) (Chronic 12/22/21) Lung nodule, solitary (Chronic 10/12/16) Sciatica, left side (Chronic 10/20/15) Interstitial pulmonary fibrosis (Chronic 07/01/14) Risk for falls (Chronic 01/04/23) Depression with anxiety (Chronic 09/20/23) Female cystocele (Chronic 04/27/23) COPD (chronic obstructive pulmonary disease) (Chronic 11/12/20) Pain of both hip joints (Chronic 06/21/22) Venous stasis dermatitis (Chronic 09/20/19) Umbilical hernia (Chronic 07/07/23) Spinal stenosis (Chronic 03/05/13) Spastic bladder (Chronic 09/05/19) Pulmonary hypertension (Chronic 12/22/21) Periodic limb movement disorder (Chronic 03/01/17) Pelvic floor instability (Chronic 09/13/23) Osteoporosis (Chronic 10/12/17) Neck pain, chronic (Chronic 08/16/22) Nausea and vomiting (Chronic 01/03/13) Lower extremity weakness (Chronic 12/27/17) Low back pain (Chronic 09/12/19) Insomnia (Chronic 06/30/20) Incontinence (Chronic 09/15/11) Fatigue (Chronic 07/03/12) Failed back syndrome (Chronic 12/22/21) Diastolic heart failure (Chronic 12/22/21) Constipation, chronic (Chronic 09/13/23) Chronic pain syndrome (Chronic 01/05/11) Cardiomyopathy (Chronic 12/22/21) Bronchiectasis (Chronic 01/27/23) Dysrhythmia (Chronic) Mixed connective tissue disease (Chronic) Iron deficiency anemia (Chronic) Weakness (Chronic) Medical History Medical History (Updated 10/05/24 @ 06:47 by Baltazar Crain MD) Thyroid nodule (07/03/12) never heard that she had this Recurrent UTI (urinary tract infection) (08/16/22) Obstructive sleep apnea (10/22/16) better now. Dyspnea Pain in left ankle and joints of left foot Gastroparesis Pulmonary fibrosis Vocal cord dysfunction Frequent ventricular premature beats Anxiety disorder Surgical History Surgical History S/P insertion of intrathecal pump S/P insertion of spinal cord stimulator History of carpal tunnel surgery of left wrist H/O shoulder surgery History of lung biopsy Status post creation of pericardial window History of hysterectomy History of cholecystectomy History of tonsillectomy History of laminectomy neck first and then low back 6 m later. low back surgery over 24 hrs of work. she was very crooked. many fused vertebrae. full of cadaver bones. History of total bilateral knee replacement Family History Family History (Updated 05/14/24 @ 15:43 by Jeimy Vital) Father Diabetes Heart disease Hyperlipidemia High blood pressure Heart attack H/O angina pectoris Arthritis Grandmother No problems noted. Mother Heart disease Hyperlipidemia Anemia Arthritis CVA (cerebral vascular accident) Social History Social History Smoking Status: Former smoker If you are a former smoker, when did you quit? (Date/Year): 03/09/1976 Number of Years Smoked: 7 How many cigarettes a day do you smoke? (20 cigarettes=1 Pk): 20 Do you dip or chew tobacco?: No Do you vape?: No Patient requests smoking cessation consult: No Initiate information on smoking cessation: No Living arrangement: At home Living Condition: With spouse/s.o. Relationship: Level: Assisted Home Mobility Equipment: Cane and Walker Do you feel safe in your home environment?: Yes Suffered physical, verbal, emotional, or financial abuse?: No History of Abuse: No ETOH Use: None Substance Use: denies use POLST Patient has POLST: No POLST Status: Full Code Exam Constitutional normal general appearance, no apparent distress (NAD at rest, obvious painful distress with movement/palpation of RUE) and alert Extremities Hands Dorsal Bilateral:  2 1. erythema, exquisite TTP, swelling. no fluctuance. Signs/symptoms are most notable at 3rd MCP joint where there is a small scab Results Vitals Vitals: Vital Signs - 24 hr 10/05/24 04:00 10/05/24 05:13 10/05/24 05:50 Temperature 36.6 C Temperature Source Oral Pulse Rate 86 Respiratory Rate 18 Blood Pressure 127/56 L O2 Saturation 97 O2 Source Room air Pain Intensity 6 10 8 10/05/24 05:59 10/05/24 06:30 10/05/24 06:30 Temperature Temperature Source Pulse Rate 85 Respiratory Rate 16 Blood Pressure 114/63 O2 Saturation 97 O2 Source Room air Pain Intensity 8 5 10/05/24 06:52 10/05/24 07:42 Temperature Temperature Source Pulse Rate Respiratory Rate Blood Pressure O2 Saturation O2 Source Pain Intensity 5 9 Oxygen O2 Source Room air Labs Labs: Laboratory Tests 10/05/24 10/05/24 04:53 05:07 WBC 20.6 H RBC 3.63 L Hgb 12.0 Hct 37.8 MCV 104.1 H MCH 33.1 H MCHC 31.7 L RDW 15.5 H Plt Count 271 MPV 10.1 Neut # (Auto) Not Reportable Lymph # (Auto) Not Reportable [place] # (Auto) Not Reportable Eos # (Auto) Not Reportable Baso # (Auto) Not Reportable Absolute Nucleated RBC Not Reportable Total Counted 100 Band Neuts % (Manual) 4 Abnorm Lymph % (Manual) 0 Myelocytes % 2 H Nucleated RBC % Not Reportable Neutrophils # (Manual) 17.7 H Lymphocytes # (Manual) 1.9 Monocytes # (Manual) 0.6 Eosinophils # (Manual) 0.0 Basophils # (Manual) 0.0 Differential Comment MANUAL DIFFERENTIAL WBC Morphology NORMAL APPEARANCE Platelet Estimate NORMAL (130-450,000) Platelet Morphology NORMAL APPEARANCE RBC Morph Micro Appear NORMAL APPEARANCE Sodium 137 Potassium 4.5 Chloride 101 Carbon Dioxide 31 Anion Gap 5.0 L BUN 26 H Creatinine 0.7 Estimated GFR (MDRD) 81 L Glucose 234 H Lactic Acid 1.5 Calcium 9.5 PD Medical Decision Making ED course Complexity details: reviewed results, re-evaluated patient, considered differential and d/w patient ED course: Patient is given 15 mg IV Toradol (NSAIDs listed as allergy but patient tells me her problems with NSAIDs are if she takes repeated doses which eventually causes epigastric discomfort; she specifically indicates she can take 1-time doses of NSAIDs when she has acute pain). She is also given 4mg IV morphine and reports inadequate relief with these measures. She is then given 5mg IV morphine. Afebrile but significant leukocytosis on CBC (WBC 20.6) with 17.7 neutrophils (left shift). Plan is to admit for observation, ongoing pain control and IV antitiobics. No beds available on my overnight shift at [facility] and thus held in ED overnight and care of patient turned over to Dr. Ortiz at end of my shift. Discharge Plan Discharge Patient Disposition: ED Place in Observation Condition: Stable Clinical Impression: Cellulitis Qualifiers: Site of cellulitis: extremity Site of cellulitis of extremity: upper extremity Laterality: right Qualified Code(s): L03.113 - Cellulitis of right upper limb Prescriptions: No Action valacyclovir 500 mg tablet 500 mg PO QDAY Qty: 90 1RF Rx Instructions: Take 1 tablet by mouth once a day nystatin 100,000 unit/gram powder 1 applic topical BID Qty: 60 5RF Rx Instructions: Apply liberally to skin twice a day until symptoms resolve ondansetron 4 mg tablet,disintegrating 4 mg PO Q8H PRN (Reason: nausea and vomiting) Qty: 60 1RF Rx Instructions: Take 1 tablet by mouth every eight hours as needed for nausea and vomiting atorvastatin [Lipitor] 20 mg tablet 20 mg PO QPM Rx Instructions: Take 1 tablet by mouth once a day mycophenolate mofetil [CellCept] 500 mg tablet 1,000 mg PO BID Rx Instructions: Take 2 tablet by mouth twice a day duloxetine [Cymbalta] 60 mg capsule,delayed release(DR/EC) 60 mg PO QDAY Rx Instructions: Take 1 capsule by mouth once a day potassium chloride 10 mEq capsule, extended release 10 meq PO BID Rx Instructions: Take 1 tablet by mouth once a day Multaq 400 mg tablet 400 mg PO BID Rx Instructions: Take 1 tablet by mouth twice a day isosorbide mononitrate 30 mg tablet extended release 24 hr 30 mg PO QDAY Rx Instructions: Take 1 tablet by mouth once a day aspirin 81 mg tablet,delayed release (DR/EC) 162 mg PO QDAY Rx Instructions: Take 2 tablet by mouth once a day carvedilol [Coreg] 6.25 mg tablet 6.25 mg PO BID Rx Instructions: Take 1 tablet by mouth twice a day ferrous sulfate [Slow Fe] 142 mg (45 mg iron) tablet extended release 142 mg PO QDAY Rx Instructions: Take 1 tablet by mouth once a day calcium citrate-vitamin D3 [Citracal-D3 Petites] 200 mg-6.25 mcg (250 unit) tablet 1 tab PO QDAY Rx Instructions: Take 1 tablet by mouth once a day estradiol 0.01 % (0.1 mg/gram) cream 0.5 - 1 g topical QWEEK Rx Instructions: Apply 1/2 to 1 gram to vaginal opening 2-3 times per week prednisone 5 mg tablet 5 mg PO DAILY clobetasol 0.05 % ointment See Rx Instructions .Route .COMPLEX Qty: 60 1RF Rx Instructions: Apply a generous amount onto the open wound QHS. After application, occlude the wound with plastic wrap (e.g., Saran wrap) to enhance absorption. Remove the occlusive wrap after 12 hours and clean and dress the wound as usual qAM as directed with Aquacel Ag, ABD, OptiLock, and roll gauze. Discontinue if signs of irritation, infection, or wound enlargement occur and consult your physician promptly. hydrocodone-acetaminophen 5-325 mg tablet 1 tab PO Q4H PRN (Reason: pain) Qty: 30 0RF Rx Instructions: Do not exceed 4 grams (4000 mg) of acetaminophen in 24 hours, including all sources such as igrx-bid-yenvlxa medications (e.g., Tylenol). sulfamethoxazole-trimethoprim [Bactrim] 400-80 mg tablet 2 tab PO BID 7 Days Qty: 28 0RF furosemide 20 mg tablet 20 mg PO DAILY Qty: 30 0RF prednisone 20 mg tablet See Rx Instructions .ROUTE .COMPLEX Qty: 19 0RF Rx Instructions: 3 tabs po daily x 3 days, then 2 tabs po daily x 3 days then 1 tab po daily x 4 days magnesium 250 mg tablet 250 mg PO BID Qty: 30 0RF prazosin 1 mg capsule 1 mg PO QPM Rx Instructions: Take 1 capsule by mouth every night Fiber Gummies 2 gram tablet,chewable 4 g PO QDAY vitamin B complex Tablet 2 tab PO QDAY glycerin (adult) Suppository 1 supp IN QDAY PRN (Reason: constipation) Rx Instructions: Insert 1 suppository rectally once a day as needed hydromorphone (PF) 10 mg/mL solution 6.9 mg IM DIRECTED Patient Comments: by pump Rx Instructions: Inject 6.9 mg via pump device acetaminophen 325 mg tablet 325 - 650 mg PO QDAY PRN (Reason: pain) Rx Instructions: Take 1-2 tablet by mouth once a day as needed for pain One Daily Multivit-Iron(folic) 18-400 mg-mcg tablet 1 tab PO QDAY Rx Instructions: Take 1 tablet by mouth once a day nitroglycerin 0.4 mg tablet, sublingual 0.4 mg sublingual Q5M PRN (Reason: chest pain) Rx Instructions: Take 1 tablet under tongue as needed at onset of chest pain. Repeat every 5 minutes for 3 doses or until symptoms resolve. all 911 if not resolved after 3rd dose. cholecalciferol (vitamin D3) 25 mcg (1,000 unit) tablet 25 mcg PO QDAY Rx Instructions: Take 1 tablet by mouth once a day ascorbic acid (vitamin C) 500 mg tablet 500 mg PO QDAY pantoprazole 40 mg tablet,delayed release (DR/EC) 40 mg PO QDAY Rx Instructions: Take 1 tablet by mouth once a day Print Language: Maltese Stand Alone Forms: PCP List
[2024-10-05 04:59] LABS: BASOPHILS % (AUTO) 0.3 %; EOSINOPHILS % (AUTO) 0.1 %; HCT - HEMATOCRIT 37.8 % (37.0-47.0); LYMPHOCYTES % (AUTO) 8.9 %; MEAN CORPUSCULAR HEMOGLOBIN 33.1 pg (27.0-31.0); MEAN CORPUSCULAR HGB CONC 31.7 g/dL (32.0-36.0); MEAN CORPUSCULAR VOLUME 104.1 fL (81.0-99.0); MEAN PLATELET VOLUME 10.1 fL (7.9-10.8); MONOCYTES % (AUTO) 4.5 %; NEUTROPHILS % (AUTO) 83.3 %; PLT - PLATELET COUNT 271 10^3/uL (130-450); RED BLOOD COUNT 3.63 10^6/uL (4.20-5.40); RED CELL DISTRIBUTION WIDTH 15.5 % (12.0-15.0); WHITE BLOOD COUNT 20.6 x10^3/uL (4.8-10.8)
[2024-10-05 05:03] LABS: ABNORMAL LYMPHS % (MANUAL) 0 %
[2024-10-05] MEDS: ceFAZolin 2 GM VIAL IVP STA (05:12)
[2024-10-05] MEDS: MORPHINE 2 MG/ML CARPUJECT IVP STA (05:13)
[2024-10-05 05:31] LABS: BAND NEUTROPHILS % (MANUAL) 4 %; LYMPHOCYTES # (MANUAL) 1.9 10^3/uL (1.5-3.5); LYMPHOCYTES % (MANUAL) 9 %; MONOCYTES # (MANUAL) 0.6 10^3/uL (0.0-1.0); MYELOCYTES % (MANUAL) 2 %; NEUTROPHILS # (MANUAL) 17.7 10^3/uL (1.5-6.6)
[2024-10-05 05:32] LABS: DIFFERENTIAL COMMENT MANUAL DIFFERENTIAL; PLATELET ESTIMATE, MANUAL NORMAL (130-450,000) (NORMAL); PLATELET MORPHOLOGY NORMAL APPEARANCE (NORMAL); RBC MORPHOLOGY (MULTIPLE) NORMAL APPEARANCE (NORMAL); WBC MORPHOLOGY (MULTIPLE) NORMAL APPEARANCE (NORMAL)
[2024-10-05 05:34] LABS: CALCIUM 9.5 mg/dL (8.5-10.3); CREATININE 0.7 mg/dL (0.6-1.3); POTASSIUM 4.5 mmol/L (3.5-4.5)
[2024-10-05] MEDS: KETOROLAC 15 MG/ML VIAL IVP STA ×2 (05:50→05:59)
[2024-10-05] MEDS: MORPHINE 10 MG/ML VIAL IVP STA (07:42)
--- NOTE | 2024-10-05 08:30 | XRAY Report ---
PROCEDURE: XR Hand 3+V RT INDICATIONS: Trauma TECHNIQUE: 3 views of the hand(s) acquired. COMPARISON: None. FINDINGS: Bones: Impressive diffuse osteopenia. No obvious fractures. Advanced degenerative arthritis involvin g the first carpometacarpal joint. Triscaphe degenerative arthritis. Chondrocalcinosis. Fingers are f lexed. There is a degree of distal head and degenerative arthritis. Soft tissues: No suspicious soft tissue calcifications or masses. IMPRESSION: 1. Severe diffuse osteopenia. No obvious fractures identified. 2. Advanced degenerative arthritis at the base of the thumb. Findings are concordant with preliminary interpretation provided by [facility]. Reviewed by: Kenyon Mary MD on 10/05/2024 8:29 AM PST Approved by: Kenyon Mary MD on 10/05/2024 8:29 AM PST Station ID: [id number]
[2024-10-05] MEDS: HYDROmorphone 1 MG/ML SYRINGE IVP STA (10:39)
[2024-10-05] MEDS: CLINDAMYCIN 600 MG/50 ML 50 ML IV ONE (10:39)
[2024-10-05] MEDS: ACETAMINOPHEN 325 MG TABLET PO STA (10:39)
[2024-10-05] MEDS: ceFAZolin (2G) 2 GM in SODIUM CHLORIDE 0.9% 100ML 100 ML IV ONE (14:01)
[2024-10-05] MEDS: ACETAMINOPHEN 325 MG TABLET PO SCH (14:02)
--- NOTE | 2024-10-05 15:07 | HISTORY & PHYSICAL EXAMINATION ---
Chief Complaint Chief Complaint Chief Complaint: Right hand pain History of Present Illness History Obtained From Records Reviewed: EMR History obtained from: Patient Exam Limitations: None History of Present Illness HPI Comment/Other: Patient is a 78-year-old female with a history of diastolic heart failure, venous insufficiency with chronic wounds of the left lower extremity including Pseudomonas, interstitial lung disease on 2 L at baseline who presents with right hand pain. Patient states that she has had very dry hands, and noticed a crack in her skin on her right third digit, right around her metacarpal joint. Over the last 3 days, she has noticed worsening redness and swelling of her entire right hand. She describes the pain as sharp and shooting up her right forearm all the way up to her elbow. It is 10 out of 10, even with minimal movement. She has also noticed warmth, swelling of the entire hand. She is unable to bend her fingers because of the pain. She has never had any infections of her hand, nor has she had any surgeries in the area. She does have chronic wounds of her left lower extremity, and recently completed a course of IV antibiotics as well as oral antibiotics. She sees a wound care doctor regularly. At this time, she has no fevers or chills. She has some nausea. In the emergency room, patient was vitally stable. Her blood pressure was 127 or 56, heart rate was 86, she was afebrile, saturating 97% on her home 2 L. Lab work was reviewed, and it did show a leukocytosis of 20.6. She also had a slightly elevated glucose of 234. ESR, CRP, blood cultures are ordered, remain pending. X-ray of the hand was done, and it does show osteopenia, moderate degenerative changes of the STT joint. Severe degenerative changes of the first carpometacarpal joint. All changes noted were chronic. She received a dose of ciprofloxacin and cefazolin, and was admitted for cellulitis. Patient lives at home with her . She is usually wheelchair-bound due to her numerous back surgeries. She occasionally uses a walker and cane. 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 Orthopedic surgery was consulted to rule out tenosynovitis. Patient has had a reaction to contrast, and is hesitant to use it again. She also has multiple hardware changes to her back, and is unable to get an MRI done. Meds/Allgy Home Medications Ambulatory Orders Medication Instructions Recorded Confirmed inulin 2 gram chewable tablet 4 g PO QDAY 05/22/24 10/05/24 (Fiber Gummies) prazosin 1 mg capsule 1 mg PO QPM 05/22/24 10/05/24 vitamin B complex 2 tab PO QDAY 05/22/24 09/05/24 acetaminophen 325 mg tablet 325 - 650 mg PO QDAY PRN pain 06/05/24 09/05/24 ascorbic acid (vitamin C) 500 mg 500 mg PO QDAY 06/05/24 10/05/24 tablet aspirin 81 mg tablet,delayed 162 mg PO QDAY 06/05/24 10/05/24 release atorvastatin 20 mg tablet (Lipitor) 20 mg PO QPM 06/05/24 10/05/24 calcium 200 mg (as 1 tab PO QDAY 06/05/24 09/05/24 citrate)-vitamin D3 6.25 mcg (250 unit) tablet (Citracal-D3 Petites) carvedilol 6.25 mg tablet (Coreg) 6.25 mg PO BID 06/05/24 10/05/24 cholecalciferol (vitamin D3) 25 25 mcg PO QDAY 06/05/24 09/05/24 mcg (1,000 unit) tablet dronedarone 400 mg tablet (Multaq) 400 mg PO BID 06/05/24 10/05/24 duloxetine 60 mg capsule,delayed 60 mg PO QDAY 06/05/24 10/05/24 release (Cymbalta) estradiol 0.01% (0.1 mg/gram) 0.5 - 1 g topical QWEEK 06/05/24 09/05/24 vaginal cream ferrous sulfate 142 mg (45 mg 142 mg PO QDAY 06/05/24 09/05/24 iron) tablet,extended release (Slow Fe) glycerin (adult) 1 supp UT QDAY PRN constipation 06/05/24 09/05/24 hydromorphone (PF) 10 mg/mL 6.9 mg IM DIRECTED 06/05/24 09/05/24 injection solution isosorbide mononitrate 30 mg 30 mg PO QDAY 06/05/24 09/05/24 tablet,extended release 24 hr multivitamin-ferrous 1 tab PO QDAY 06/05/24 09/05/24 fumarate-folic acid 18 mg-400 mcg tablet (One Daily Multivitamin with Iron (folic acid)) mycophenolate mofetil 500 mg 1,000 mg PO BID 06/05/24 10/05/24 tablet (CellCept) nitroglycerin 0.4 mg sublingual 0.4 mg sublingual Q5M PRN chest 06/05/24 09/05/24 tablet pain pantoprazole 40 mg tablet,delayed 40 mg PO QDAY 06/05/24 10/05/24 release potassium chloride 10 mEq 10 meq PO BID 06/05/24 09/05/24 capsule,extended release valacyclovir 500 mg tablet 500 mg PO QDAY #90 tabs 06/06/24 10/05/24 nystatin 100,000 unit/gram topical 1 applic topical BID #60 grams 06/26/24 09/05/24 powder magnesium 250 mg tablet 250 mg PO BID #30 tabs 08/03/24 10/05/24 prednisone 20 mg tablet See Rx Instructions .Route 08/03/24 09/05/24 .COMPLEX #19 tabs clobetasol 0.05 % topical ointment See Rx Instructions .Route 08/10/24 09/05/24 .COMPLEX #60 grams prednisone 5 mg tablet 5 mg PO DAILY 08/10/24 10/05/24 hydrocodone 5 mg-acetaminophen 325 1 tab PO Q4H PRN pain #30 tabs 08/17/24 09/05/24 mg tablet sulfamethoxazole 400 2 tab PO BID 7 days #28 tabs 08/24/24 09/05/24 mg-trimethoprim 80 mg tablet (Bactrim) ondansetron 4 mg disintegrating 4 mg PO Q8H PRN nausea and 08/30/24 09/05/24 tablet vomiting #60 tabs furosemide 20 mg tablet 20 mg PO DAILY #30 tabs 08/31/24 10/05/24 Allergies Allergies Allergy/AdvReac Type Severity Reaction Status Date / Time iodine Allergy Severe Rash Verified 10/05/24 04:05 isoniazid Allergy Severe Rash Verified 10/05/24 04:05 zolpidem (From Ambien) Allergy Severe Hallucinati Verified 10/05/24 04:05 ons adhesive tape Allergy Intermediate Rash Verified 09/05/24 15:32 artichoke Allergy Unknown Verified 10/05/24 04:05 pregabalin (From Lyrica) Allergy muscle Verified 10/05/24 04:05 spasms NSAIDS (Non-Steroidal AdvReac Intermediate abd pain Verified 10/05/24 04:05 Anti-Inflamma cantaloupe AdvReac Mild abdomen Verified 10/05/24 04:05 swells, makes her miserable. amitriptyline AdvReac Hallucinati Verified 09/05/24 15:32 ons fentanyl AdvReac Hallucinati Verified 10/05/24 04:05 ons gabapentin AdvReac Hallucinati Verified 10/05/24 04:05 ons PFSH Active Problems All Active Problems (Updated 10/05/24 @ 15:15 by Estrella Gates MD) Leukocytosis (Acute) Cellulitis of right hand (Acute) Cellulitis (Acute) Irritable bowel syndrome (Acute) Abdominal hernia (Acute 06/15/23) Candidiasis of mouth (Acute) MRSA infection (Acute) Pain in right leg (Acute) Lipodermatosclerosis of right lower extremity (Acute) Superficial bruising of lower leg (Acute) Atrial fibrillation with controlled ventricular rate (Acute) Long-term use of immunosuppressant medication (Acute) long term care phlebotomist (current) use of systemic steroids (Acute) Pleuritic chest pain (Acute) Pain of left calf (Acute) Shortness of breath (Acute) Cellulitis of left lower limb (Acute) Foot pain, left (Acute) Local infection of the skin and subcutaneous tissue, unspecified (Chronic) Pseudomonas aeruginosa infection (Chronic) Edema (Chronic) Non-pressure chronic ulcer of other part of left lower leg with fat layer exposed (Chronic) Venous insufficiency (chronic) (peripheral) (Chronic) Presence of pessary (Chronic) PVD (peripheral vascular disease) (Chronic 11/03/21) GERD (gastroesophageal reflux disease) (Chronic 04/26/11) Hyperlipidemia (Chronic 03/08/16) Fibromyalgia (Chronic 12/22/21) CAD (coronary artery disease) (Chronic 12/22/21) Lung nodule, solitary (Chronic 10/12/16) Sciatica, left side (Chronic 10/20/15) Interstitial pulmonary fibrosis (Chronic 07/01/14) Risk for falls (Chronic 01/04/23) Depression with anxiety (Chronic 09/20/23) Female cystocele (Chronic 04/27/23) COPD (chronic obstructive pulmonary disease) (Chronic 11/12/20) Pain of both hip joints (Chronic 06/21/22) Venous stasis dermatitis (Chronic 09/20/19) Umbilical hernia (Chronic 07/07/23) Spinal stenosis (Chronic 03/05/13) Spastic bladder (Chronic 09/05/19) Pulmonary hypertension (Chronic 12/22/21) Periodic limb movement disorder (Chronic 03/01/17) Pelvic floor instability (Chronic 09/13/23) Osteoporosis (Chronic 10/12/17) Neck pain, chronic (Chronic 08/16/22) Nausea and vomiting (Chronic 01/03/13) Lower extremity weakness (Chronic 12/27/17) Low back pain (Chronic 09/12/19) Insomnia (Chronic 06/30/20) Incontinence (Chronic 09/15/11) Fatigue (Chronic 07/03/12) Failed back syndrome (Chronic 12/22/21) Diastolic heart failure (Chronic 12/22/21) Constipation, chronic (Chronic 09/13/23) Chronic pain syndrome (Chronic 01/05/11) Cardiomyopathy (Chronic 12/22/21) Bronchiectasis (Chronic 01/27/23) Dysrhythmia (Chronic) Mixed connective tissue disease (Chronic) Iron deficiency anemia (Chronic) Weakness (Chronic) Medical History Medical History Thyroid nodule (07/03/12) never heard that she had this Recurrent UTI (urinary tract infection) (08/16/22) Obstructive sleep apnea (10/22/16) better now. Dyspnea Pain in left ankle and joints of left foot Gastroparesis Pulmonary fibrosis Vocal cord dysfunction Frequent ventricular premature beats Anxiety disorder Surgical History Surgical History S/P insertion of intrathecal pump S/P insertion of spinal cord stimulator History of carpal tunnel surgery of left wrist H/O shoulder surgery History of lung biopsy Status post creation of pericardial window History of hysterectomy History of cholecystectomy History of tonsillectomy History of laminectomy neck first and then low back 6 m later. low back surgery over 24 hrs of work. she was very crooked. many fused vertebrae. full of cadaver bones. History of total bilateral knee replacement Family History Family History Father Diabetes Heart disease Hyperlipidemia High blood pressure Heart attack H/O angina pectoris Arthritis Grandmother No problems noted. Mother Heart disease Hyperlipidemia Anemia Arthritis CVA (cerebral vascular accident) Social History Social History Smoking Status: Former smoker If you are a former smoker, when did you quit? (Date/Year): 03/09/1976 Number of Years Smoked: 7 How many cigarettes a day do you smoke? (20 cigarettes=1 Pk): 20 Do you dip or chew tobacco?: No Do you vape?: No Patient requests smoking cessation consult: No Initiate information on smoking cessation: No Living arrangement: At home Living Condition: With spouse/s.o. Relationship: Level: Assisted Home Mobility Equipment: Cane and Walker Do you feel safe in your home environment?: Yes Suffered physical, verbal, emotional, or financial abuse?: No History of Abuse: No ETOH Use: None Substance Use: denies use POLST Patient has POLST: No POLST Status: Full Code Review of Systems Constitutional Reports: Fatigue, Malaise and Weakness; Denies: Fever, Chills, Diaphoresis or Night sweats Eyes Denies: Pain, Irritation, Blurry vision, Floaters, Field loss or Vision loss Ears, nose, mouth, and throat Denies: Ear pain, Ear discharge, Hearing loss, Neck pain or Throat swelling Cardiovascular Reports: Irregular heart rate, swelling of feet/ankles and shortness of breath with exertion; Denies: chest pain, palpitations, edema, Syncope or lightheadedness Respiratory Reports: Shortness of breath; Denies: Cough, Sputum production, Change in phlegm color or Wheezing Gastrointestinal Denies: Abdominal pain, Abdominal distention, Nausea, Vomiting or Poor appetite Genitourinary Denies: Painful urination, Urinary frequency, Urinary urgency, Nocturia or Urinary incontinence Musculoskeletal Reports: Back pain; Denies: Neck pain, Extremity pain, Extremity swelling, Gout or Joint pain Integumentary/Breast Reports: Rash, Dryness, Redness, Skin pain, Skin tenderness and Skin swelling; Denies: Itching, Sores or New lesion Neurological Reports: General weakness; Denies: Headache, Focal weakness, Weakness in extremities, Numbness in extremities or Abnormal gait Psychiatric Denies: Depression, Anxiety, Mood swings, Panic attacks, Change in sleep pattern or Hopelessness Endocrine Reports: Fatigue; Denies: Excessive urination, Excessive thirst or Polyphagia Hematologic/Lymphatic Denies: Anemia, Easy bruising, Petechiae or Easy bleeding Allergic/Immunologic Denies: Hives, Throat swelling, Tongue swelling, Facial swelling or Wheezing Prior Level of Functionality: Lives with . Uses walker/cane/wheelchair (mostly wheelchair at baseline). Exam Constitutional abnormal general appearance (frail appearing), no apparent distress, average body habitus, no limitations and alert HENMT normocephalic, head/scalp atraumatic and hearing grossly normal bilaterally Eyes PERRL, EOMs intact bilaterally and conjunctivae normal Neck/C-Spine visual inspection normal and trachea midline Chest inspection of chest normal and palpation of chest normal Respiratory breath sounds equal bilaterally, normal respiratory effort, clear to auscultation bilaterally, no wheezes, no rales and no retractions Cardiovascular normal heart rate noted, rhythm abnormal (irregular), no gallop, no rub and no murmur Gastrointestinal abdomen normal to inspection, abdomen soft to palpation, nontender to palpation, nontender to percussion and nondistended Genitourinary no CVA tenderness and bladder normal to palpation Extremities normal to inspection, normal to palpation and tenderness noted (tenderness of LLE - wounds noted with some active purulence noted) Neurology no movement abnormality noted, no focal motor deficit noted and speech normal Psychiatry mental status grossly normal, oriented x3, thought process normal and cooperative Skin Right hand with small 2 cm abrasion below third digit; erythematous until bottom of hand, diffuse tenderness from the hand all the way to the elbow; range of motion limited due to pain; swollen; warm to touch Conclusion/Plan Problem List (1) Cellulitis of right hand: Plan: Patient with diffuse erythema, swelling, exquisite tenderness to palpation from hand to forearm. Small 2 cm skin breakdown noted at the bottom of right third digit. No obvious fluctuence noted. X-ray of hand shows chronic changes, no acute changes noted. ESR, CRP ordered, pending. Continue broad-spectrum antibiotics with vancomycin and Rocephin for now. Concern for possible underlying tenosynovitis; orthopedic surgery consulted, appreciate recommendations. (2) Leukocytosis: Plan: Management as above. Blood cultures ordered, pending. Qualifiers: Leukocytosis type: unspecified Qualified Code(s): D72.829 - Elevated white blood cell count, unspecified (3) Atrial fibrillation with controlled ventricular rate: Plan: Patient is not on any rate control medications at this time. Recently started on Eliquis approximately 10 days ago by conventional underwriter, his notes were reviewed. Continued inpatient. Will hold if plans for surgical procedure. (4) PVD (peripheral vascular disease): Plan: Chronic condition, stable. Chronic wounds of left lower extremity. Outpatient wound care doctor is considering skin grafts. (5) GERD (gastroesophageal reflux disease): Plan: Continue Protonix. Qualifiers: Esophagitis presence: without esophagitis Qualified Code(s): K21.9 - Gastro-esophageal reflux disease without esophagitis (6) Hyperlipidemia: Plan: Continue statin. Qualifiers: Hyperlipidemia type: unspecified Qualified Code(s): E78.5 - Hyperlipidemia, unspecified (7) Interstitial pulmonary fibrosis: Plan: Chronic. On 2L of oxygen at home, continue at this time. Has history of pulmonary hypertension with this. Was on CellCept previously, currently held as she gets worked up for her left lower extremity ulcers. On a prednisone taper; continue at this time. (8) Diastolic heart failure: Plan: Compensated at this time. Continue Lasix. Qualifiers: Heart failure chronicity: chronic Qualified Code(s): I50.32 - Chronic diastolic (congestive) heart failure (9) Mixed connective tissue disease: Plan: Patient has been on immunosuppresants in the past. Stable. Continue to monitor. Lab Results Lab results reviewed: Yes 10/05/24 04:53 10/05/24 05:07 Diagnostic Imaging Results Diagnostic Imaging Results: positive Final report reviewed and Read independently Core Measures Anticipated LOS I expect patient to be DC'd or transferred within 96 hours.: Yes Issues Hospital Issues and Management Plan: None anticipated. DVT/VTE - Prophylaxis VTE/DVT Device ordered at admit?: Yes VTE/DVT Prophylaxis med ordered at admit?: Yes
[2024-10-05] MEDS ORDERED: ONDANSETRON ODT 4 MG TABLET PO PRN (15:12)
[2024-10-05] MEDS: MORPHINE 2 MG/ML CARPUJECT IVP PRN (15:48)
[2024-10-05] MEDS: HYDROcod/ACETAM 5/325 MG TABLET PO PRN (16:27)
[2024-10-05] MEDS: VANCOMYCIN INJ 2 GM in SODIUM CHLORIDE 0.9% 500 ML IV ONE (16:55)
[2024-10-05] MEDS: SODIUM CHLORIDE FLUSH 0.9% 10 ML SYRINGE IVP SCH (16:56)
--- NOTE | 2024-10-05 17:45 | PHARMACY PROGRESS NOTE ---
Best Possible Medication History Admit Date and Time: 10/05/24 1455 Home Medications Medication Instructions Recorded Confirmed Type inulin 2 gram chewable tablet 4 g PO QDAY 05/22/24 10/05/24 History (Fiber Gummies) prazosin 1 mg capsule 1 mg PO QPM 05/22/24 10/05/24 History vitamin B complex 2 tab PO QDAY 05/22/24 10/05/24 History acetaminophen 325 mg tablet 325 - 650 mg PO QDAY PRN pain 06/05/24 10/05/24 History ascorbic acid (vitamin C) 500 mg 500 mg PO QDAY 06/05/24 10/05/24 History tablet aspirin 81 mg tablet,delayed 162 mg PO QDAY 06/05/24 10/05/24 History release atorvastatin 20 mg tablet (Lipitor) 20 mg PO QPM 06/05/24 10/05/24 History calcium 200 mg (as 1 tab PO QDAY 06/05/24 10/05/24 History citrate)-vitamin D3 6.25 mcg (250 unit) tablet (Citracal-D3 Petites) carvedilol 6.25 mg tablet (Coreg) 6.25 mg PO BID 06/05/24 10/05/24 History cholecalciferol (vitamin D3) 25 25 mcg PO QDAY 06/05/24 10/05/24 History mcg (1,000 unit) tablet dronedarone 400 mg tablet (Multaq) 400 mg PO BID 06/05/24 10/05/24 History duloxetine 60 mg capsule,delayed 60 mg PO QDAY 06/05/24 10/05/24 History release (Cymbalta) estradiol 0.01% (0.1 mg/gram) 0.5 - 1 g topical QWEEK 06/05/24 10/05/24 History vaginal cream ferrous sulfate 142 mg (45 mg 142 mg PO QDAY 06/05/24 10/05/24 History iron) tablet,extended release (Slow Fe) glycerin (adult) 1 supp IN QDAY PRN constipation 06/05/24 10/05/24 History hydromorphone (PF) 10 mg/mL 3.3 mg epidural DAILY 06/05/24 10/05/24 History injection solution isosorbide mononitrate 30 mg 30 mg PO QDAY 06/05/24 10/05/24 History tablet,extended release 24 hr multivitamin-ferrous 1 tab PO QDAY 06/05/24 10/05/24 History fumarate-folic acid 18 mg-400 mcg tablet (One Daily Multivitamin with Iron (folic acid)) mycophenolate mofetil 500 mg 1,000 mg PO BID 06/05/24 10/05/24 History tablet (CellCept) nitroglycerin 0.4 mg sublingual 0.4 mg sublingual Q5M PRN chest 06/05/24 10/05/24 History tablet pain pantoprazole 40 mg tablet,delayed 40 mg PO QDAY 06/05/24 10/05/24 History release potassium chloride 10 mEq 10 meq PO BID 06/05/24 10/05/24 History capsule,extended release valacyclovir 500 mg tablet 500 mg PO QDAY #90 tabs 06/06/24 10/05/24 Rx nystatin 100,000 unit/gram topical 1 applic topical BID #60 grams 06/26/24 10/05/24 Rx powder magnesium 250 mg tablet 250 mg PO BID #30 tabs 08/03/24 10/05/24 Rx clobetasol 0.05 % topical ointment See Rx Instructions .Route 08/10/24 10/05/24 Rx .COMPLEX #60 grams prednisone 5 mg tablet 5 mg PO DAILY 08/10/24 10/05/24 History ondansetron 4 mg disintegrating 4 mg PO Q8H PRN nausea and 08/30/24 10/05/24 Rx tablet vomiting #60 tabs furosemide 20 mg tablet 20 mg PO DAILY #30 tabs 08/31/24 10/05/24 Rx apixaban 2.5 mg tablet (Eliquis) 2.5 mg PO BID 10/05/24 10/05/24 History mupirocin 2 % topical ointment 1 applic topical BID 10/05/24 10/05/24 History Processed by: Pharmacy Medications reviewed in ED?: No Medication History completed: Yes Patient Interview: Completed Secondary Source(s): Pharmacy records and Insurance records [facility] Statement: As the person ultimately responsible for medication therapy, providers are able to order a medication from an existing home medication list in [facility] via the "Reconcile Routine" prior to Confirmation of that medication by net application support specialist. Such practice is discouraged except when the physician, in their clinical judgment, deems that a medical need exists for a medication without regard to previous use.
--- NOTE | 2024-10-05 18:51 | ED Physician Documentation ---
ED Addendum Addendum Addendum: Patient in ED after change of shift pending ed available for hospitalization. As it was looking still to afternoon likely for that, I ordered redosing of ANcef at 8 hours and also added staph coverage with clindamycin. Repeat pain meds as needed. Regular tylenol. Exam was still very tender locally with warmth and some redness up to wrist area. Some pain at forearm but no edema. Main lesion dorsal MCP middle finger without fluctuance. No drainage for culturing. Concern for ability to spread through deeper layers but not seeming tenosynovitis per se. Good sensation color and cap refill in finger distally. Forearm not tight. Does not seem like increased compartment pressure and less likely in dorsal hand. Pending bed available, I did discuss with hospitalist at morning rounds. Discharge Plan Discharge Patient Disposition: ED Place in Observation Condition: Stable Clinical Impression: Cellulitis Qualifiers: Site of cellulitis: extremity Site of cellulitis of extremity: upper extremity Laterality: right Qualified Code(s): L03.113 - Cellulitis of right upper limb Interventions: ED Admission Assessment Last Done: 10/05/24 15:07
[2024-10-05] MEDS: carvediloL 3.125 MG TABLET PO SCH (20:59)
[2024-10-05] MEDS: ATORVASTATIN 10 MG TABLET PO SCH (20:59)
[2024-10-05] MEDS: MAGNESIUM OXIDE 400 MG TABLET PO SCH (20:59)
[2024-10-05] MEDS ORDERED: APIXABAN 5 MG TABLET PO SCH (21:00)
[2024-10-05] MEDS ORDERED: APIXABAN 2.5 MG TABLET PO SCH (21:00)
[2024-10-05] MEDS: PRAZOSIN 1 MG CAPSULE PO SCH (21:00)
[2024-10-05] MEDS: DRONEDARONE 400 MG PO SCH (21:05)
--- NOTE | 2024-10-05 21:59 | CONSULTATION NOTE ---
History of Present Illness History of Present Illness HPI Comment/Other: CC: RIGHT Hand pain, swelling and redness HPI: 78 yo F with a past medical history of diastolic heart failure, venous insufficiency with chronic wounds of the left lower extremity, interstitial lung disease who presents with right hand pain, swelling and redness. She reports that there was no trauma but had a recent crack in the skin over the third metacarpal phalangeal joint. She believes it was due to dry hands. Quickly the hand became red and swollen. She presented to the emergency department and internal medicine was consulted for cellulitis. Orthopedics was consulted to rule out tenosynovitis. Patient denies fevers, chills or night sweats. Denies pain along the volar aspect of the hand however she has significant pain along the dorsum of the hand. [facility] Active Problems All Active Problems (Updated 10/05/24 @ 15:15 by Estrella Gates MD) Leukocytosis (Acute) Cellulitis of right hand (Acute) Cellulitis (Acute) Irritable bowel syndrome (Acute) Abdominal hernia (Acute 06/15/23) Candidiasis of mouth (Acute) MRSA infection (Acute) Pain in right leg (Acute) Lipodermatosclerosis of right lower extremity (Acute) Superficial bruising of lower leg (Acute) Atrial fibrillation with controlled ventricular rate (Acute) Long-term use of immunosuppressant medication (Acute) MCC (current) use of systemic steroids (Acute) Pleuritic chest pain (Acute) Pain of left calf (Acute) Shortness of breath (Acute) Cellulitis of left lower limb (Acute) Foot pain, left (Acute) Local infection of the skin and subcutaneous tissue, unspecified (Chronic) Pseudomonas aeruginosa infection (Chronic) Edema (Chronic) Non-pressure chronic ulcer of other part of left lower leg with fat layer exposed (Chronic) Venous insufficiency (chronic) (peripheral) (Chronic) Presence of pessary (Chronic) PVD (peripheral vascular disease) (Chronic 11/03/21) GERD (gastroesophageal reflux disease) (Chronic 04/26/11) Hyperlipidemia (Chronic 03/08/16) Fibromyalgia (Chronic 12/22/21) CAD (coronary artery disease) (Chronic 12/22/21) Lung nodule, solitary (Chronic 10/12/16) Sciatica, left side (Chronic 10/20/15) Interstitial pulmonary fibrosis (Chronic 11/24/14) Risk for falls (Chronic 01/04/23) Depression with anxiety (Chronic 09/20/23) Female cystocele (Chronic 04/27/23) COPD (chronic obstructive pulmonary disease) (Chronic 11/12/20) Pain of both hip joints (Chronic 06/21/22) Venous stasis dermatitis (Chronic 09/20/19) Umbilical hernia (Chronic 07/07/23) Spinal stenosis (Chronic 03/05/13) Spastic bladder (Chronic 09/05/19) Pulmonary hypertension (Chronic 12/22/21) Periodic limb movement disorder (Chronic 03/01/17) Pelvic floor instability (Chronic 09/13/23) Osteoporosis (Chronic 10/12/17) Neck pain, chronic (Chronic 08/16/22) Nausea and vomiting (Chronic 01/03/13) Lower extremity weakness (Chronic 12/27/17) Low back pain (Chronic 09/12/19) Insomnia (Chronic 06/30/20) Incontinence (Chronic 09/15/11) Fatigue (Chronic 07/03/12) Failed back syndrome (Chronic 12/22/21) Diastolic heart failure (Chronic 12/22/21) Constipation, chronic (Chronic 09/13/23) Chronic pain syndrome (Chronic 01/05/11) Cardiomyopathy (Chronic 12/22/21) Bronchiectasis (Chronic 01/27/23) Dysrhythmia (Chronic) Mixed connective tissue disease (Chronic) Iron deficiency anemia (Chronic) Weakness (Chronic) Medical History Medical History Thyroid nodule (07/03/12) never heard that she had this Recurrent UTI (urinary tract infection) (08/16/22) Obstructive sleep apnea (10/22/16) better now. Dyspnea Pain in left ankle and joints of left foot Gastroparesis Pulmonary fibrosis Vocal cord dysfunction Frequent ventricular premature beats Anxiety disorder Surgical History Surgical History S/P insertion of intrathecal pump S/P insertion of spinal cord stimulator History of carpal tunnel surgery of left wrist H/O shoulder surgery History of lung biopsy Status post creation of pericardial window History of hysterectomy History of cholecystectomy History of tonsillectomy History of laminectomy neck first and then low back 6 m later. low back surgery over 24 hrs of work. she was very crooked. many fused vertebrae. full of cadaver bones. History of total bilateral knee replacement Family History Family History Father Diabetes Heart disease Hyperlipidemia High blood pressure Heart attack H/O angina pectoris Arthritis Grandmother No problems noted. Mother Heart disease Hyperlipidemia Anemia Arthritis CVA (cerebral vascular accident) Social History Social History Smoking Status: Former smoker If you are a former smoker, when did you quit? (Date/Year): 03/09/1976 Number of Years Smoked: 7 How many cigarettes a day do you smoke? (20 cigarettes=1 Pk): 20 Do you dip or chew tobacco?: No Do you vape?: No Patient requests smoking cessation consult: No Initiate information on smoking cessation: No Smoking Status Details: stopped smoking in 1975 Living arrangement: At home Living Condition: With spouse/s.o. Relationship: Level: Dependent Home Mobility Equipment: Lift Do you feel safe in your home environment?: Yes Suffered physical, verbal, emotional, or financial abuse?: No History of Abuse: No ETOH Use: None Substance Use: denies use POLST Patient has POLST: No POLST Status: Full Code Meds/Allgy Home Medications Ambulatory Orders Medication Instructions Recorded Confirmed inulin 2 gram chewable tablet 4 g PO QDAY 05/22/24 10/05/24 (Fiber Gummies) prazosin 1 mg capsule 1 mg PO QPM 05/22/24 10/05/24 vitamin B complex 2 tab PO QDAY 05/22/24 10/05/24 acetaminophen 325 mg tablet 325 - 650 mg PO QDAY PRN pain 06/05/24 10/05/24 ascorbic acid (vitamin C) 500 mg 500 mg PO QDAY 06/05/24 10/05/24 tablet aspirin 81 mg tablet,delayed 162 mg PO QDAY 06/05/24 10/05/24 release atorvastatin 20 mg tablet (Lipitor) 20 mg PO QPM 06/05/24 10/05/24 calcium 200 mg (as 1 tab PO QDAY 06/05/24 10/05/24 citrate)-vitamin D3 6.25 mcg (250 unit) tablet (Citracal-D3 Petites) carvedilol 6.25 mg tablet (Coreg) 6.25 mg PO BID 06/05/24 10/05/24 cholecalciferol (vitamin D3) 25 25 mcg PO QDAY 06/05/24 10/05/24 mcg (1,000 unit) tablet dronedarone 400 mg tablet (Multaq) 400 mg PO BID 06/05/24 10/05/24 duloxetine 60 mg capsule,delayed 60 mg PO QDAY 06/05/24 10/05/24 release (Cymbalta) estradiol 0.01% (0.1 mg/gram) 0.5 - 1 g topical QWEEK 06/05/24 10/05/24 vaginal cream ferrous sulfate 142 mg (45 mg 142 mg PO QDAY 06/05/24 10/05/24 iron) tablet,extended release (Slow Fe) glycerin (adult) 1 supp MI QDAY PRN constipation 06/05/24 10/05/24 hydromorphone (PF) 10 mg/mL 3.3 mg epidural DAILY 06/05/24 10/05/24 injection solution isosorbide mononitrate 30 mg 30 mg PO QDAY 06/05/24 10/05/24 tablet,extended release 24 hr multivitamin-ferrous 1 tab PO QDAY 06/05/24 10/05/24 fumarate-folic acid 18 mg-400 mcg tablet (One Daily Multivitamin with Iron (folic acid)) mycophenolate mofetil 500 mg 1,000 mg PO BID 06/05/24 10/05/24 tablet (CellCept) nitroglycerin 0.4 mg sublingual 0.4 mg sublingual Q5M PRN chest 06/05/24 10/05/24 tablet pain pantoprazole 40 mg tablet,delayed 40 mg PO QDAY 06/05/24 10/05/24 release potassium chloride 10 mEq 10 meq PO BID 06/05/24 10/05/24 capsule,extended release valacyclovir 500 mg tablet 500 mg PO QDAY #90 tabs 06/06/24 10/05/24 nystatin 100,000 unit/gram topical 1 applic topical BID #60 grams 06/26/24 10/05/24 powder magnesium 250 mg tablet 250 mg PO BID #30 tabs 08/03/24 10/05/24 clobetasol 0.05 % topical ointment See Rx Instructions .Route 08/10/24 10/05/24 .COMPLEX #60 grams prednisone 5 mg tablet 5 mg PO DAILY 08/10/24 10/05/24 ondansetron 4 mg disintegrating 4 mg PO Q8H PRN nausea and 08/30/24 10/05/24 tablet vomiting #60 tabs furosemide 20 mg tablet 20 mg PO DAILY #30 tabs 08/31/24 10/05/24 apixaban 2.5 mg tablet (Eliquis) 2.5 mg PO BID 10/05/24 10/05/24 mupirocin 2 % topical ointment 1 applic topical BID 10/05/24 10/05/24 Allergies Allergies Allergy/AdvReac Type Severity Reaction Status Date / Time iodine Allergy Severe Rash Verified 10/05/24 04:05 isoniazid Allergy Severe Rash Verified 10/05/24 04:05 zolpidem (From Ambien) Allergy Severe Hallucinati Verified 10/05/24 04:05 ons adhesive tape Allergy Intermediate Rash Verified 09/05/24 15:32 artichoke Allergy Unknown Verified 10/05/24 04:05 pregabalin (From Lyrica) Allergy muscle Verified 10/05/24 04:05 spasms NSAIDS (Non-Steroidal AdvReac Intermediate abd pain Verified 10/05/24 04:05 Anti-Inflamma cantaloupe AdvReac Mild abdomen Verified 10/05/24 04:05 swells, makes her miserable. amitriptyline AdvReac Hallucinati Verified 09/05/24 15:32 ons fentanyl AdvReac Hallucinati Verified 10/05/24 04:05 ons gabapentin AdvReac Hallucinati Verified 10/05/24 04:05 ons Results Lab Results 10/05/24 04:53 10/05/24 05:07 Other Lab Results: Lab Results x24hrs 10/05/24 10/05/24 10/05/24 Range/Units 16:35 15:15 08:37 WBC (4.8-10.8) x10^3/uL RBC (4.20-5.40) 10^6/uL Hgb (12.0-16.0) g/dL Hct (37.0-47.0) % MCV (81.0-99.0) fL MCH (27.0-31.0) pg MCHC (32.0-36.0) g/dL RDW (12.0-15.0) % Plt Count (130-450) 10^3/uL MPV (7.9-10.8) fL Neut # (Auto) Lymph # (Auto) [place] # (Auto) Eos # (Auto) Baso # (Auto) Absolute Nucleated RBC Total Counted Band Neuts % (Manual) (0 - 10) % Abnorm Lymph % (Manual) % Myelocytes % ( - 0) % Nucleated RBC % Neutrophils # (Manual) (1.5-6.6) 10^3/uL Lymphocytes # (Manual) (1.5-3.5) 10^3/uL Monocytes # (Manual) (0.0-1.0) 10^3/uL Eosinophils # (Manual) (0-0.7) 10^3/uL Basophils # (Manual) (0-0.1) 10^3/uL Differential Comment WBC Morphology (NORMAL) Platelet Estimate (NORMAL) Platelet Morphology (NORMAL) RBC Morph Micro Appear (NORMAL) ESR 34 H (0-30) mm/Hr Sodium (135-145) mmol/L Potassium (3.5-4.5) mmol/L Chloride (101-111) mmol/L Carbon Dioxide (21-32) mmol/L Anion Gap (6-13) BUN (6-20) mg/dL Creatinine (0.6-1.3) mg/dL Estimated GFR (MDRD) (>89) Glucose (74-104) mg/dL POC Whole Bld Glucose 152 (70-100) mg/dL Lactic Acid (0.5-2.2) mmol/L Calcium (8.5-10.3) mg/dL C-Reactive Protein 12.4 H (<0.5) mg/dL Nasal Screen MRSA (PCR) NEGATIVE (NEGATIVE) 10/05/24 10/05/24 Range/Units 05:07 04:53 WBC 20.6 H (4.8-10.8) x10^3/uL RBC 3.63 L (4.20-5.40) 10^6/uL Hgb 12.0 (12.0-16.0) g/dL Hct 37.8 (37.0-47.0) % MCV 104.1 H (81.0-99.0) fL MCH 33.1 H (27.0-31.0) pg MCHC 31.7 L (32.0-36.0) g/dL RDW 15.5 H (12.0-15.0) % Plt Count 271 (130-450) 10^3/uL MPV 10.1 (7.9-10.8) fL Neut # (Auto) Not Reportable Lymph # (Auto) Not Reportable [place] # (Auto) Not Reportable Eos # (Auto) Not Reportable Baso # (Auto) Not Reportable Absolute Nucleated RBC Not Reportable Total Counted 100 Band Neuts % (Manual) 4 (0 - 10) % Abnorm Lymph % (Manual) 0 % Myelocytes % 2 H ( - 0) % Nucleated RBC % Not Reportable Neutrophils # (Manual) 17.7 H (1.5-6.6) 10^3/uL Lymphocytes # (Manual) 1.9 (1.5-3.5) 10^3/uL Monocytes # (Manual) 0.6 (0.0-1.0) 10^3/uL Eosinophils # (Manual) 0.0 (0-0.7) 10^3/uL Basophils # (Manual) 0.0 (0-0.1) 10^3/uL Differential Comment MANUAL DIFFERENTIAL WBC Morphology NORMAL APPEARANCE (NORMAL) Platelet Estimate NORMAL (130-450,000) (NORMAL) Platelet Morphology NORMAL APPEARANCE (NORMAL) RBC Morph Micro Appear NORMAL APPEARANCE (NORMAL) ESR (0-30) mm/Hr Sodium 137 (135-145) mmol/L Potassium 4.5 (3.5-4.5) mmol/L Chloride 101 (101-111) mmol/L Carbon Dioxide 31 (21-32) mmol/L Anion Gap 5.0 L (6-13) BUN 26 H (6-20) mg/dL Creatinine 0.7 (0.6-1.3) mg/dL Estimated GFR (MDRD) 81 L (>89) Glucose 234 H (74-104) mg/dL POC Whole Bld Glucose (70-100) mg/dL Lactic Acid 1.5 (0.5-2.2) mmol/L Calcium 9.5 (8.5-10.3) mg/dL C-Reactive Protein (<0.5) mg/dL Nasal Screen MRSA (PCR) (NEGATIVE) Conclusion and Plan Diagnosis Diagnosis: 78F presents with cellulitis of the dorsum of the right hand. Currently there is no physical exam findings of tenosynovitis. I would recommend continued nonoperative treatments to include elevation, rest and IV antibiotics. She will be n.p.o. at midnight for potential OR tomorrow. A repeat clinical exam will be performed tomorrow to ensure that she has improvement in her symptoms. Plan Plan: Hospitalist admission IV antibiotics Elevation Rest N.p.o. for potential OR tomorrow Repeat clinical exam in the morning The patient had the treatment plan explained, questions answered and seemed satisfied with the plan. There were no apparent barriers to communication. The documentation in this note may have been entered with the assistance of computer voice recognition and dictation software. Therefore, it may contain unintended errors in text, spelling, punctuation, or grammar. Damion Anderson MD Orthopedic Surgeon Exam Exam RIGHT UE: Significant erythema on the dorsum of the hand. The main focus area is over the third metacarpal phalangeal joint. There is a small abrasion in that location. Short arc range of motion of all MCP joints. However with full flexion or extension she has pain. Nontender to palpation to deep palpation along the volar aspect of the hand and fingers. There is no significant swelling in the fingers. She discusses pain that radiates up the dorsum of the hand through the forearm up to her elbow. The erythema is marked and only extends to approximately the wrist. No fluctuance noted. Fires AIN/PIN/median/radial/ulnar nerves. SILT all distributions. 2+ Radial pulse, brisk cap refil to all digits IMAGING: Radiographs of the RIGHT Hand on October 05, 2024: No fractures. No foreign bodies. Diffuse osteopenia. Degenerative arthritis in the first carpometacarpal joint.
[2024-10-06] MEDS: VANCOMYCIN INJ 1 GM in SODIUM CHLORIDE 0.9% 250 ML IV SCH (04:39)
[2024-10-06] MEDS: PANTOPRAZOLE 40 MG TABLET PO SCH (06:15)
[2024-10-06 06:23] LABS: HCT - HEMATOCRIT 40.1 % (37.0-47.0); HGB - HEMOGLOBIN 12.5 g/dL (12.0-16.0); MEAN CORPUSCULAR HGB CONC 31.2 g/dL (32.0-36.0); MEAN CORPUSCULAR VOLUME 105.8 fL (81.0-99.0); MEAN PLATELET VOLUME 10.1 fL (7.9-10.8); RED BLOOD COUNT 3.79 10^6/uL (4.20-5.40); RED CELL DISTRIBUTION WIDTH 15.9 % (12.0-15.0)
[2024-10-06 06:38] LABS: CALCIUM 9.2 mg/dL (8.5-10.3); CREATININE 0.5 mg/dL (0.6-1.3); MAGNESIUM 1.9 mg/dL (1.7-2.3); POTASSIUM 4.5 mmol/L (3.5-4.5)
[2024-10-06] MEDS: cefTRIAXone 1 GM VIAL IVP SCH (10:37)
[2024-10-06] MEDS: CHOLECALCIFEROL 25 MCG TABLET PO SCH (10:38)
[2024-10-06] MEDS: valACYclovir 500 MG TABLET PO SCH (10:38)
[2024-10-06] MEDS: ASCORBIC ACID 500 MG TABLET PO SCH (10:38)
[2024-10-06] MEDS: MULTIVITAMIN TABLET PO SCH (10:38)
[2024-10-06] MEDS: DULoxetine 60 MG CAPSULE PO SCH (10:39)
[2024-10-06] MEDS: predniSONE 5 MG TABLET PO SCH (10:39)
[2024-10-06] MEDS: FUROSEMIDE 20 MG TABLET PO SCH (10:39)
--- NOTE | 2024-10-06 11:18 | PROVIDER PROGRESS NOTE ---
Subjective Subjective Subjective: Today, patient is feeling okay. She still has some pain in her right hand. The swelling and redness has improved. She is eating and drinking well. She continues to have pain in her left leg with the chronic wounds. Current Medications Current Medications Current Medications: Current Medications Generic Name Dose Route Start Last Admin Trade Name Freq PRN Reason Stop Dose Admin Acetaminophen 650 mg 10/05/24 13:00 10/06/24 10:39 Acetaminophen 325 Mg Tablet PO 650 mg QID YONY Administration Hydrocodone Bitart/Acetaminophen 1 tab 10/05/24 15:47 10/06/24 06:15 Hydrocod/Acetam 5/325 Mg Tablet PO 1 tab Q4H PRN Administration Moderate Pain (Level 4-6) Ascorbic Acid 500 mg 10/06/24 09:00 10/06/24 10:38 Ascorbic Acid 500 Mg Tablet PO 500 mg DAILY YONY Administration Atorvastatin Calcium 20 mg 10/05/24 21:00 10/05/24 20:59 Atorvastatin 10 Mg Tablet PO 20 mg QPM YONY Administration Carvedilol 6.25 mg 10/05/24 21:00 10/06/24 10:39 Carvedilol 3.125 Mg Tablet PO 6.25 mg BID YONY Administration Ceftriaxone Sodium 1 gm 10/06/24 09:00 10/06/24 10:37 Ceftriaxone 1 Gm Vial IVP 1 gm DAILY YONY Administration Cholecalciferol 25 mcg 10/06/24 09:00 10/06/24 10:38 Cholecalciferol 25 Mcg Tablet PO 25 mcg DAILY YONY Administration Duloxetine HCl 60 mg 10/06/24 09:00 10/06/24 10:39 Duloxetine 60 Mg Capsule PO 60 mg DAILY YONY Administration Furosemide 20 mg 10/06/24 09:00 10/06/24 10:39 Furosemide 20 Mg Tablet PO 20 mg DAILY YONY Administration Vancomycin HCl 1 gm/ Sodium 250 mls @ 167 mls/hr 10/06/24 05:00 10/06/24 07:19 Chloride IV Infused Q12H YONY Infusion Magnesium Oxide 400 mg 10/05/24 21:00 10/06/24 10:38 Magnesium Oxide 400 Mg Tablet PO 400 mg BID YONY Administration Morphine Sulfate 2 mg 10/05/24 15:12 10/06/24 04:52 Morphine 2 Mg/Ml Carpuject IVP 2 mg Q4HR PRN Administration Pain 8 to 10 Multivitamins 1 tab 10/06/24 08:00 10/06/24 10:38 Multivitamin Tablet PO 1 tab DAILYWM YONY Administration Ondansetron HCl 4 mg 10/05/24 15:12 Ondansetron Odt 4 Mg Tablet PO Q8H PRN nausea and vomiting Pantoprazole Sodium 40 mg 10/06/24 07:00 10/06/24 06:15 Pantoprazole 40 Mg Tablet PO 40 mg QDAC YONY Administration Dronedarone [Multaq] 1 each 10/05/24 21:00 10/06/24 10:50 400 Mg Tablet PO Not Given BID YONY Prazosin HCl 1 mg 10/05/24 21:00 10/05/24 21:00 Prazosin 1 Mg Capsule PO 1 mg QPM YONY Administration Prednisone 5 mg 10/06/24 09:00 10/06/24 10:39 Prednisone 5 Mg Tablet PO 5 mg DAILY YONY Administration Sodium Chloride 10 ml 10/05/24 15:12 Sodium Chloride Flush 0.9% 10 Ml Syringe IVP PRN PRN NEEDED PER PROVIDER ORDERS Sodium Chloride 10 ml 10/05/24 17:00 10/06/24 10:37 Sodium Chloride Flush 0.9% 10 Ml Syringe IVP 10 ml 0100,0900,1700 YONY Administration Sterile Water 10 ml 10/06/24 09:00 10/06/24 10:37 Water For Injection,Sterile 10 Ml Vial MC 10 ml DAILY YONY Administration Valacyclovir HCl 500 mg 10/06/24 09:00 10/06/24 10:38 Valacyclovir 500 Mg Tablet PO 500 mg DAILY YONY Administration Objective Vital Signs/Intake & Output Reviewed Vital Signs: Yes Vital Signs: Vital Signs x48h Temp Pulse Resp BP Pulse Ox O2 Flow Rate 10/06/24 09:00 97.5 F L 76 18 105/58 L 96 1 10/06/24 04:41 97.2 F L 81 20 103/58 L 97 1 Intake & Output: Intake & Output 10/03/24 10/04/24 10/05/24 10/06/24 23:59 23:59 23:59 23:59 Intake Total 1050 / 1050 250 / 250 Output Total 750 / 750 Balance 1050 / 1050 -500 / -500 Weight (kg) 83.5 kg Objective General Appearance: positive No acute distress and Alert; negative Anxious Eyes Bilateral: positive Normal inspection, PERRL and EOMI ENT: positive ENT inspection nml, Pharynx nml and No signs of dehydration Neck: positive Nml inspection, Thyroid nml and No JVD Respiratory: positive Chest non-tender, No respiratory distress and Wheezes; negative Rales or Rhonchi Cardiovascular: positive No murmur, No gallop and Irregularly irregular Abdomen: positive Non-tender, No organomegaly, Nml bowel sounds and No distention; negative Guarding, Hepatomegaly or Splenomegaly Back: positive Nml inspection; negative CVA tenderness (R) or CVA tenderness (L) Skin: positive Other (Right hand with small 2 cm abrasion below third digit; erythematous until bottom of hand, diffuse tenderness from the hand all the way to the elbow; range of motion limited due to pain; swollen; warm to touch/// LLE with chronic wounds, green-yellow granulation tissue noted) Extremities: positive Other (tenderness of LLE - wounds noted with some active purulence noted) Neurologic/Psychiatric: positive Oriented x3 and Mood/affect nml Lab Results 10/06/24 05:57 10/06/24 05:57 Other Labs: Lab Results x24hrs 10/06/24 10/05/24 10/05/24 Range/Units 05:57 16:35 15:15 WBC 24.0 H (4.8-10.8) x10^3/uL RBC 3.79 L (4.20-5.40) 10^6/uL Hgb 12.5 (12.0-16.0) g/dL Hct 40.1 (37.0-47.0) % MCV 105.8 H (81.0-99.0) fL MCH 33.0 H (27.0-31.0) pg MCHC 31.2 L (32.0-36.0) g/dL RDW 15.9 H (12.0-15.0) % Plt Count 243 (130-450) 10^3/uL MPV 10.1 (7.9-10.8) fL ESR 34 H (0-30) mm/Hr Sodium 137 (135-145) mmol/L Potassium 4.5 (3.5-4.5) mmol/L Chloride 104 (101-111) mmol/L Carbon Dioxide 27 (21-32) mmol/L Anion Gap 6.0 (6-13) BUN 20 (6-20) mg/dL Creatinine 0.5 L (0.6-1.3) mg/dL Estimated GFR (MDRD) 119 (>89) Glucose 141 H (74-104) mg/dL Calcium 9.2 (8.5-10.3) mg/dL Magnesium 1.9 (1.7-2.3) mg/dL C-Reactive Protein 12.4 H (<0.5) mg/dL Nasal Screen MRSA (PCR) NEGATIVE (NEGATIVE) Diagnostic Imaging Diagnostic Imaging Results: positive Final report reviewed Assessment/Plan Problem List (1) Cellulitis of right hand: Impression: Patient with diffuse erythema, swelling, exquisite tenderness to palpation from hand to forearm. Small 2 cm skin breakdown noted at the bottom of right third digit. No obvious fluctuence noted. Improved appearance from yesterday. X-ray of hand shows chronic changes, no acute changes noted. ESR, CRP ordered, pending. Still elevated. Broad-spectrum antibiotics with vancomycin. Switched Rocephin to cefepime due to previous LLE wound cultures + for Pseudomonas. Concern for possible underlying tenosynovitis; orthopedic surgery consulted, no need for debridement at this time, appreciate recommendations. (2) Leukocytosis: Impression: Management as above. Blood cultures ordered, pending. Qualifiers: Leukocytosis type: unspecified Qualified Code(s): D72.829 - Elevated white blood cell count, unspecified (3) Atrial fibrillation with controlled ventricular rate: Impression: Patient is not on any rate control medications at this time. Recently started on Eliquis approximately 10 days ago by information systems operator, his notes were reviewed. Continued inpatient. Will hold if plans for surgical procedure. (4) PVD (peripheral vascular disease): Impression: Chronic condition, stable. Chronic wounds of left lower extremity. Outpatient wound care doctor is considering skin grafts. (5) GERD (gastroesophageal reflux disease): Impression: Continue Protonix. Qualifiers: Esophagitis presence: without esophagitis Qualified Code(s): K21.9 - Gastro-esophageal reflux disease without esophagitis (6) Hyperlipidemia: Impression: Continue statin. Qualifiers: Hyperlipidemia type: unspecified Qualified Code(s): E78.5 - Hyperlipidemia, unspecified (7) Interstitial pulmonary fibrosis: Impression: Chronic. On 2L of oxygen at home, continue at this time. Has history of pulmonary hypertension with this. Was on CellCept previously, currently held as she gets worked up for her left lower extremity ulcers. On a prednisone taper; continue at this time. (8) Diastolic heart failure: Impression: Compensated at this time. Continue Lasix. Qualifiers: Heart failure chronicity: chronic Qualified Code(s): I50.32 - Chronic diastolic (congestive) heart failure (9) Mixed connective tissue disease: Impression: Patient has been on immunosuppresants in the past. Stable. Continue to monitor.
--- NOTE | 2024-10-06 11:24 | POST OP PROGRESS NOTE ---
Subjective General Admit Date: 10/05/24 Procedure Date: 07/02/24 Post Op Days: 96 Other Other Information/Narrative: 78yo F admitted on 10/05/24 for right hand cellulitis. S: Patient reports that her had feels better however it is still painful. Denies F/C/NS. Ortho Surgical Progress Note Problem List Problem List: 78yo F admitted on 10/05/24 for right hand cellulitis. No signs of flexor tenosynovitis or abscess. -IV antibiotics -Strict non weight bearing and elevation -NPO at midnight for potential OR on 10/07/24 -Repeat CBC/CRP/ESR on 10/07/24 Damion Anderson MD Exam Exam RIGHT UE: Improving erythema on the dorsum of the hand. The main focus area is over the third metacarpal phalangeal joint. There is a small abrasion in that location. Short arc range of motion of all MCP joints. However with full flexion or extension she has pain. Nontender to palpation to deep palpation along the volar aspect of the hand and fingers. There is no significant swelling in the fingers. She discusses pain that radiates up the dorsum of the hand through the forearm up to her elbow. The erythema is marked and only extends to approximately the wrist. No fluctuance noted. Fires AIN/PIN/median/radial/ulnar nerves. SILT all distributions. 2+ Radial pulse, brisk cap refil to all digits IMAGING: Radiographs of the RIGHT Hand on October 05, 2024: No fractures. No foreign bodies. Diffuse osteopenia. Degenerative arthritis in the first ca rpometacarpal joint.
[2024-10-06] MEDS: CEFEPIME 2 GM in SODIUM CHLORIDE 0.9% MINIBAG 100 ML IV SCH (14:16)
[2024-10-06] MEDS: DRONEDARONE 400 MG PO SCH (14:18)
[2024-10-06] MEDS: MORPHINE 2 MG/ML CARPUJECT IVP PRN (22:49)
[2024-10-07] MEDS: SODIUM CHLORIDE FLUSH 0.9% 10 ML SYRINGE IVP PRN (04:43)
[2024-10-07 05:29] LABS: HGB - HEMOGLOBIN 11.6 g/dL (12.0-16.0); MEAN CORPUSCULAR HEMOGLOBIN 32.6 pg (27.0-31.0); MEAN CORPUSCULAR HGB CONC 30.5 g/dL (32.0-36.0); MEAN CORPUSCULAR VOLUME 106.7 fL (81.0-99.0); MEAN PLATELET VOLUME 10.6 fL (7.9-10.8); RED BLOOD COUNT 3.56 10^6/uL (4.20-5.40); RED CELL DISTRIBUTION WIDTH 15.9 % (12.0-15.0); WHITE BLOOD COUNT 18.9 x10^3/uL (4.8-10.8)
[2024-10-07] MEDS ORDERED: PHENOL THROAT SPRAY 177 ML MM PRN (05:39)
[2024-10-07 05:45] LABS: MAGNESIUM 1.9 mg/dL (1.7-2.3)
[2024-10-07 05:51] LABS: CALCIUM 9.3 mg/dL (8.5-10.3); CREATININE 0.6 mg/dL (0.6-1.3); POTASSIUM 4.4 mmol/L (3.5-4.5)
[2024-10-07] MEDS ORDERED: ACETAMINOPHEN 325 MG TABLET PO PRN (07:27)
[2024-10-07] MEDS: KETOROLAC 30 MG/ML VIAL IVP ONE (11:48)
[2024-10-07] MEDS: CLOBETASOL 0.05% OINT 15 GM TUBE TOP SCH (13:20)
--- NOTE | 2024-10-07 13:41 | PROVIDER PROGRESS NOTE ---
Subjective Subjective Subjective: Patient still has some pain in her right hand, which shoots up her forearm, as well as up to her shoulders. The hand does appear less swollen and less red. Orthopedic surgery was also in the room when I was there, we discussed the plancontinue IV antibiotics at this time, will reevaluate tomorrow to see if procedure is needed. Current Medications Current Medications Current Medications: Current Medications Generic Name Dose Route Start Last Admin Trade Name Freq PRN Reason Stop Dose Admin Acetaminophen 650 mg 10/07/24 07:27 Acetaminophen 325 Mg Tablet PO QID PRN mild pain Hydrocodone Bitart/Acetaminophen 1 tab 10/05/24 15:47 10/07/24 08:08 Hydrocod/Acetam 5/325 Mg Tablet PO 1 tab Q4H PRN Administration Moderate Pain (Level 4-6) Ascorbic Acid 500 mg 10/06/24 09:00 10/07/24 08:08 Ascorbic Acid 500 Mg Tablet PO 500 mg DAILY YONY Administration Atorvastatin Calcium 20 mg 10/05/24 21:00 10/06/24 20:54 Atorvastatin 10 Mg Tablet PO 20 mg QPM YONY Administration Carvedilol 6.25 mg 10/05/24 21:00 10/07/24 08:19 Carvedilol 3.125 Mg Tablet PO 6.25 mg BID YONY Administration Cholecalciferol 25 mcg 10/06/24 09:00 10/07/24 08:08 Cholecalciferol 25 Mcg Tablet PO 25 mcg DAILY YONY Administration Clobetasol Propionate 1 applic 10/07/24 11:00 10/07/24 13:20 Clobetasol 0.05% Oint 15 Gm Tube TOP 1 applic DAILY YONY Administration Duloxetine HCl 60 mg 10/06/24 09:00 10/07/24 08:08 Duloxetine 60 Mg Capsule PO 60 mg DAILY YONY Administration Furosemide 20 mg 10/06/24 09:00 10/07/24 08:08 Furosemide 20 Mg Tablet PO 20 mg DAILY YONY Administration Vancomycin HCl 1 gm/ Sodium 250 mls @ 167 mls/hr 10/06/24 05:00 10/07/24 06:26 Chloride IV Infused Q12H YONY Infusion Cefepime HCl 2 gm/ Sodium 100 mls @ 200 mls/hr 10/06/24 14:00 10/07/24 13:20 Chloride IV 200 mls/hr Q8HR YONY Administration Magnesium Oxide 400 mg 10/05/24 21:00 10/07/24 08:08 Magnesium Oxide 400 Mg Tablet PO 400 mg BID YONY Administration Morphine Sulfate 4 mg 10/06/24 12:09 10/07/24 13:25 Morphine 2 Mg/Ml Carpuject IVP 4 mg Q4HR PRN Administration Pain 8 to 10 Multivitamins 1 tab 10/06/24 08:00 10/07/24 08:07 Multivitamin Tablet PO 1 tab DAILYWM YONY Administration Ondansetron HCl 4 mg 10/05/24 15:12 Ondansetron Odt 4 Mg Tablet PO Q8H PRN nausea and vomiting Pantoprazole Sodium 40 mg 10/06/24 07:00 10/07/24 06:26 Pantoprazole 40 Mg Tablet PO 40 mg QDAC YONY Administration Dronedarone [Multaq] 1 each 10/06/24 13:00 10/07/24 08:12 400 Mg Tablet PO 1 each BID YONY Administration Phenol/Menthol 2 sprays 10/07/24 05:39 Phenol Throat [place] 177 Ml MM Q2HR PRN Throat Pain Prazosin HCl 1 mg 10/05/24 21:00 10/06/24 20:55 Prazosin 1 Mg Capsule PO 1 mg QPM YONY Administration Prednisone 5 mg 10/06/24 09:00 10/07/24 08:08 Prednisone 5 Mg Tablet PO 5 mg DAILY YONY Administration Sodium Chloride 10 ml 10/05/24 15:12 10/07/24 04:43 Sodium Chloride Flush 0.9% 10 Ml Syringe IVP 10 ml PRN PRN Administration NEEDED PER PROVIDER ORDERS Sodium Chloride 10 ml 10/05/24 17:00 10/07/24 08:12 Sodium Chloride Flush 0.9% 10 Ml Syringe IVP 10 ml 0100,0900,1700 YONY Administration Sterile Water 10 ml 10/06/24 09:00 10/07/24 08:13 Water For Injection,Sterile 10 Ml Vial MC Not Given DAILY [facility] Valacyclovir HCl 500 mg 10/06/24 09:00 10/07/24 08:08 Valacyclovir 500 Mg Tablet PO 500 mg DAILY YONY Administration Objective Vital Signs/Intake & Output Reviewed Vital Signs: Yes Vital Signs: Vital Signs x48h Temp Pulse Pulse Resp BP Pulse Ox 10/07/24 11:54 97.9 F 89 24 125/69 94 10/07/24 07:20 97.9 F 70 22 129/59 L 92 Intake & Output: Intake & Output 10/04/24 10/05/24 10/06/24 10/07/24 23:59 23:59 23:59 23:59 Intake Total 1050 / 1050 1286 / 1286 650 / 650 Output Total 1300 / 1300 750 / 750 Balance 1050 / 1050 -14 / -14 -100 / -100 Weight (kg) 83.5 kg Objective General Appearance: positive No acute distress and Alert; negative Anxious Eyes Bilateral: positive Normal inspection, PERRL and EOMI ENT: positive ENT inspection nml, Pharynx nml and No signs of dehydration Neck: positive Nml inspection, Thyroid nml and No JVD Respiratory: positive Chest non-tender, No respiratory distress and Wheezes; negative Rales or Rhonchi Cardiovascular: positive No murmur, No gallop and Irregularly irregular Abdomen: positive Non-tender, No organomegaly, Nml bowel sounds and No distention; negative Guarding, Hepatomegaly or Splenomegaly Back: positive Nml inspection; negative CVA tenderness (R) or CVA tenderness (L) Skin: positive Other (Right hand with small 2 cm abrasion below third digit; erythematous until bottom of hand, diffuse tenderness from the hand all the way to the elbow; range of motion limited due to pain; swollen; warm to touch/// LLE with chronic wounds, green-yellow granulation tissue noted) Extremities: positive Other (tenderness of LLE - wounds noted with some active purulence noted) Neurologic/Psychiatric: positive Oriented x3 and Mood/affect nml Lab Results 10/07/24 05:03 10/07/24 05:03 Other Labs: Lab Results x24hrs 10/07/24 Range/Units 05:03 WBC 18.9 H (4.8-10.8) x10^3/uL RBC 3.56 L (4.20-5.40) 10^6/uL Hgb 11.6 L (12.0-16.0) g/dL Hct 38.0 (37.0-47.0) % MCV 106.7 H (81.0-99.0) fL MCH 32.6 H (27.0-31.0) pg MCHC 30.5 L (32.0-36.0) g/dL RDW 15.9 H (12.0-15.0) % Plt Count 234 (130-450) 10^3/uL MPV 10.6 (7.9-10.8) fL ESR 46 H (0-30) mm/Hr Sodium 137 (135-145) mmol/L Potassium 4.4 (3.5-4.5) mmol/L Chloride 104 (101-111) mmol/L Carbon Dioxide 30 (21-32) mmol/L Anion Gap 3.0 L (6-13) BUN 21 H (6-20) mg/dL Creatinine 0.6 (0.6-1.3) mg/dL Estimated GFR (MDRD) 97 (>89) Glucose 167 H (74-104) mg/dL Calcium 9.3 (8.5-10.3) mg/dL Magnesium 1.9 (1.7-2.3) mg/dL C-Reactive Protein 20.9 H (<0.5) mg/dL Diagnostic Imaging Diagnostic Imaging Results: positive Final report reviewed Assessment/Plan Problem List (1) Cellulitis of right hand: Impression: Patient with diffuse erythema, swelling, exquisite tenderness to palpation from hand to forearm. Small 2 cm skin breakdown noted at the bottom of right third digit. No obvious fluctuence noted. Improved appearance from admission. X-ray of hand shows chronic changes, no acute changes noted. Continue to trend ESR, CRP - today, they were elevated. Broad-spectrum antibiotics with vancomycin. Switched Rocephin to cefepime due to previous LLE wound cultures + for Pseudomonas. Concern for possible underlying tenosynovitis; orthopedic surgery consulted. Patient still has some pain in her right hand, which shoots up her forearm, as well as up to her shoulders. The hand does appear less swollen and less red. Orthopedic surgery was also in the room when I was there, we discussed the plancontinue IV antibiotics at this time, will reevaluate tomorrow to see if procedure is needed. (2) Leukocytosis: Impression: Resolving. Blood cultures ordered, pending. Qualifiers: Leukocytosis type: unspecified Qualified Code(s): D72.829 - Elevated white blood cell count, unspecified (3) Atrial fibrillation with controlled ventricular rate: Impression: Patient is not on any rate control medications at this time. Recently started on Eliquis approximately 10 days ago by [facility] [employer], his notes were reviewed. Continued inpatient. Will hold if plans for surgical procedure. (4) PVD (peripheral vascular disease): Impression: Chronic condition, stable. Chronic wounds of left lower extremity. Outpatient wound care doctor is considering skin grafts. (5) GERD (gastroesophageal reflux disease): Impression: Continue Protonix. Qualifiers: Esophagitis presence: without esophagitis Qualified Code(s): K21.9 - Gastro-esophageal reflux disease without esophagitis (6) Hyperlipidemia: Impression: Continue statin. Qualifiers: Hyperlipidemia type: unspecified Qualified Code(s): E78.5 - Hyperlipidemia, unspecified (7) Interstitial pulmonary fibrosis: Impression: Chronic. On 2L of oxygen at home, continue at this time. Has history of pulmonary hypertension with this. Was on CellCept previously, currently held as she gets worked up for her left lower extremity ulcers. On a prednisone taper; continue at this time. (8) Diastolic heart failure: Impression: Compensated at this time. Continue Lasix. Qualifiers: Heart failure chronicity: chronic Qualified Code(s): I50.32 - Chronic diastolic (congestive) heart failure (9) Mixed connective tissue disease: Impression: Patient has been on immunosuppresants in the past. Stable. Continue to monitor.
--- NOTE | 2024-10-07 14:12 | POST OP PROGRESS NOTE ---
Subjective General Admit Date: 10/06/24 Procedure Date: 07/02/24 Post Op Days: 97 Other Other Information/Narrative: 78yo F admitted on 10/05/24 for right hand cellulitis. Treated with IV antibiotics. S: Patient reports that she continues to have pain on the dorsum of the hand especially around the 3rd MCP joint. At times the pain will radiate up her arm all the way to her shoulder. Denies F/C/NS. Ortho Surgical Progress Note Problem List Problem List: 78yo F admitted on 10/05/24 for right hand cellulitis. No signs of flexor tenosynovitis or abscess. The erythema is improving however her inflammatory lab markers increased. She continues to complain of dorsal hand pain. -IV antibiotics -Strict non weight bearing and elevation -NPO at midnight for potential OR on 10/08/24 -Repeat CBC/CRP/ESR on 10/08/24 Damion Anderson MD Exam Exam RIGHT UE: Improving erythema on the dorsum of the hand. The main focus area is over the third metacarpal phalangeal joint. There is a small abrasion in that location. Short arc range of motion of all MCP joints. However with full flexion or extension she has pain. Nontender to palpation to deep palpation along the volar aspect of the hand and fingers. There is no significant swelling in the fingers. She discusses pain that radiates up the dorsum of the hand through the forearm up to her elbow. The erythema is marked and only extends to approximately the wrist. No fluctuance noted. Fires AIN/PIN/median/radial/ulnar nerves. SILT all distributions. 2+ Radial pulse, brisk cap refil to all digits IMAGING: Radiographs of the RIGHT Hand on October 05, 2024: No fractures. No foreign bodies. Diffuse osteopenia. Degenerative arthritis in the first carpometacarpal joint.
[2024-10-08 05:31] LABS: HCT - HEMATOCRIT 35.8 % (37.0-47.0); HGB - HEMOGLOBIN 11.3 g/dL (12.0-16.0); MEAN CORPUSCULAR HEMOGLOBIN 32.9 pg (27.0-31.0); MEAN CORPUSCULAR HGB CONC 31.6 g/dL (32.0-36.0); MEAN CORPUSCULAR VOLUME 104.4 fL (81.0-99.0); MEAN PLATELET VOLUME 10.1 fL (7.9-10.8); RED BLOOD COUNT 3.43 10^6/uL (4.20-5.40); RED CELL DISTRIBUTION WIDTH 15.7 % (12.0-15.0); WHITE BLOOD COUNT 15.6 x10^3/uL (4.8-10.8)
[2024-10-08 05:56] LABS: CALCIUM 9.5 mg/dL (8.5-10.3); CREATININE 0.6 mg/dL (0.6-1.3); CRP - C-REACTIVE PROTEIN 15.9 mg/dL (<0.5); POTASSIUM 4.6 mmol/L (3.5-4.5)
--- NOTE | 2024-10-08 08:03 | POST OP PROGRESS NOTE ---
Subjective General Admit Date: 10/06/24 Procedure Date: 07/02/24 Post Op Days: 98 Other Other Information/Narrative: General Admit Date: 10/06/24 Other 78yo F admitted on 10/05/24 for right hand cellulitis. Treated with IV antibiotics. S: Patient reports that she continues to have pain on the dorsum of the hand especially around the 3rd MCP joint. At times the pain will radiate up her arm all the way to her shoulder. Overall, her pain and right hand function is improving. Denies F/C/NS. Ortho Surgical Progress Note Problem List Problem List: 78yo F admitted on 10/05/24 for right hand cellulitis. No signs of flexor tenosynovitis or abscess. The erythema, hand function and inflammatory markers have improved. She continues to complain of dorsal hand pain. -IV antibiotics -Strict non weight bearing and elevation -NPO at midnight for potential OR on 10/09/24 -Repeat CBC/CRP/ESR on 10/09/24 Exam Exam RIGHT UE: Improving erythema on the dorsum of the hand. The main focus area is over the third metacarpal phalangeal joint. There is a small abrasion in that location. Short arc range of motion of all MCP joints. However, with full flexion or extension she has pain. Nontender to palpation to deep palpation along the volar aspect of the hand and fingers. There is no significant swelling in the fingers. She discusses pain that radiates up the dorsum of the hand through the forearm up to her elbow. The erythema is marked and only extends to approximately the wrist. No fluctuance noted. Fires AIN/PIN/median/radial/ulnar nerves. SILT all distributions. 2+ Radial pulse, brisk cap refil to all digits IMAGING: Radiographs of the RIGHT Hand on October 05, 2024: No fractures. No foreign bodies. Diffuse osteopenia. Degenerative arthritis in the first carpometacarpal joint.
--- NOTE | 2024-10-08 09:00 | PROVIDER PROGRESS NOTE ---
Subjective Prog Note Date Prog Note Date: 10/08/24 Prog Note Time: 09:00 Subjective Pt reports feeling: No change Subjective: Madelin is alert, pleasant, and cooperative. She is sitting upright in bed after taking a nap. She lifted her hand to show me it and yelped in pain due to moving her hand "too quickly". She states her hand is probably the same as yesterday, maybe very slightly better. Ongoing redness, swelling, and pain is worse on dorsum of the hand and pain extends 3-4 inches up her forearm. She had a coughing fit this morning while eating breakfast. She states this happens nearly every day. It feels like food gets stuck just above her stomach while eating. She denies choking. She will cough extremely hard until the bolus comes up, then spit it out or swallow it back down. She denies aspiration into lungs and states she does not usually vomit, but sometimes gets close. She does have a history of GERD treated with protonix. Current Medications Current Medications Current Medications: Current Medications Generic Name Dose Route Start Last Admin Trade Name Freq PRN Reason Stop Dose Admin Acetaminophen 650 mg 10/07/24 07:27 Acetaminophen 325 Mg Tablet PO QID PRN mild pain Hydrocodone Bitart/Acetaminophen 1 tab 10/05/24 15:47 10/07/24 20:40 Hydrocod/Acetam 5/325 Mg Tablet PO 1 tab Q4H PRN Administration Moderate Pain (Level 4-6) Ascorbic Acid 500 mg 10/06/24 09:00 10/07/24 08:08 Ascorbic Acid 500 Mg Tablet PO 500 mg DAILY YONY Administration Atorvastatin Calcium 20 mg 10/05/24 21:00 10/07/24 20:40 Atorvastatin 10 Mg Tablet PO 20 mg QPM YONY Administration Carvedilol 6.25 mg 10/05/24 21:00 10/07/24 20:40 Carvedilol 3.125 Mg Tablet PO 6.25 mg BID YONY Administration Cholecalciferol 25 mcg 10/06/24 09:00 10/07/24 08:08 Cholecalciferol 25 Mcg Tablet PO 25 mcg DAILY YONY Administration Clobetasol Propionate 1 applic 10/07/24 11:00 10/07/24 13:20 Clobetasol 0.05% Oint 15 Gm Tube TOP 1 applic DAILY YONY Administration Duloxetine HCl 60 mg 10/06/24 09:00 10/07/24 08:08 Duloxetine 60 Mg Capsule PO 60 mg DAILY YONY Administration Furosemide 20 mg 10/06/24 09:00 10/07/24 08:08 Furosemide 20 Mg Tablet PO 20 mg DAILY YONY Administration Vancomycin HCl 1 gm/ Sodium 250 mls @ 167 mls/hr 10/06/24 05:00 10/08/24 06:43 Chloride IV Infused Q12H YONY Infusion Cefepime HCl 2 gm/ Sodium 100 mls @ 200 mls/hr 10/06/24 14:00 10/08/24 06:43 Chloride IV Infused Q8HR YONY Infusion Magnesium Oxide 400 mg 10/05/24 21:00 10/07/24 20:41 Magnesium Oxide 400 Mg Tablet PO 400 mg BID YONY Administration Morphine Sulfate 4 mg 10/06/24 12:09 10/07/24 13:25 Morphine 2 Mg/Ml Carpuject IVP 4 mg Q4HR PRN Administration Pain 8 to 10 Multivitamins 1 tab 10/06/24 08:00 10/07/24 08:07 Multivitamin Tablet PO 1 tab DAILYWM YONY Administration Ondansetron HCl 4 mg 10/05/24 15:12 Ondansetron Odt 4 Mg Tablet PO Q8H PRN nausea and vomiting Pantoprazole Sodium 40 mg 10/06/24 07:00 10/08/24 05:11 Pantoprazole 40 Mg Tablet PO 40 mg QDAC YONY Administration Dronedarone [Multaq] 1 each 10/06/24 13:00 10/07/24 22:36 400 Mg Tablet PO 1 each BID YONY Administration Phenol/Menthol 2 sprays 10/07/24 05:39 Phenol Throat [place] 177 Ml MM Q2HR PRN Throat Pain Prazosin HCl 1 mg 10/05/24 21:00 10/07/24 20:41 Prazosin 1 Mg Capsule PO 1 mg QPM YONY Administration Prednisone 5 mg 10/06/24 09:00 10/07/24 08:08 Prednisone 5 Mg Tablet PO 5 mg DAILY YONY Administration Sodium Chloride 10 ml 10/05/24 15:12 10/07/24 04:43 Sodium Chloride Flush 0.9% 10 Ml Syringe IVP 10 ml PRN PRN Administration NEEDED PER PROVIDER ORDERS Sodium Chloride 10 ml 10/05/24 17:00 10/08/24 00:43 Sodium Chloride Flush 0.9% 10 Ml Syringe IVP 10 ml 0100,0900,1700 YONY Administration Sterile Water 10 ml 10/06/24 09:00 10/07/24 08:13 Water For Injection,Sterile 10 Ml Vial Not Given DAILY YONY Valacyclovir HCl 500 mg 10/06/24 09:00 10/07/24 08:08 Valacyclovir 500 Mg Tablet PO 500 mg DAILY YONY Administration Objective Vital Signs/Intake & Output Vital Signs: Vital Signs x48h Temp Pulse Resp BP Pulse Ox 10/08/24 08:32 36.4 C L 78 18 124/55 L 96 10/08/24 04:18 36.4 C L 72 20 117/62 97 Intake & Output: Intake & Output 10/05/24 10/06/24 10/07/24 10/08/24 23:59 23:59 23:59 23:59 Intake Total 1050 / 1050 1286 / 1286 1638 / 1638 490 / 490 Output Total 1300 / 1300 1601 / 1601 Balance 1050 / 1050 -14 / -14 37 / 37 490 / 490 Weight (kg) 83.5 kg Lab Results 10/08/24 05:13 10/08/24 05:13 Other Labs: Lab Results x24hrs 10/08/24 Range/Units 05:13 WBC 15.6 H (4.8-10.8) x10^3/uL RBC 3.43 L (4.20-5.40) 10^6/uL Hgb 11.3 L (12.0-16.0) g/dL Hct 35.8 L (37.0-47.0) % MCV 104.4 H (81.0-99.0) fL MCH 32.9 H (27.0-31.0) pg MCHC 31.6 L (32.0-36.0) g/dL RDW 15.7 H (12.0-15.0) % Plt Count 246 (130-450) 10^3/uL MPV 10.1 (7.9-10.8) fL ESR 59 H (0-30) mm/Hr Sodium 133 L (135-145) mmol/L Potassium 4.6 H (3.5-4.5) mmol/L Chloride 100 L (101-111) mmol/L Carbon Dioxide 29 (21-32) mmol/L Anion Gap 4.0 L (6-13) BUN 27 H (6-20) mg/dL Creatinine 0.6 (0.6-1.3) mg/dL Estimated GFR (MDRD) 97 (>89) Glucose 163 H (74-104) mg/dL Calcium 9.5 (8.5-10.3) mg/dL C-Reactive Protein 15.9 H (<0.5) mg/dL ABX Reporting Has patient been on IV antibiotics over the past 48 hours?: Yes Assessment/Plan Problem List (1) Cellulitis of right hand: Impression: Patient with diffuse erythema, swelling, exquisite tenderness to palpation from hand to forearm. Small 2 cm skin breakdown noted at the bottom of right third digit. No obvious fluctuence noted. Improved appearance from admission. X-ray of hand shows chronic changes, no acute changes noted. Continue to trend ESR, CRP - today, CRP is elevated but improved from yesterday, and ESR is slightly higher. Broad-spectrum antibiotics with vancomycin. Switched Rocephin to cefepime due to previous LLE wound cultures + for Pseudomonas. Concern for possible underlying tenosynovitis; orthopedic surgery consulted. Spoke with orthopedic surgery todayplan to keep patient n.p.o. after midnight in case of procedure, continue to trend ESR and CRP. They will reassess tomorrow morning. (2) Leukocytosis: Impression: Improved to 15 today. - Blood cultures ordered, pending. Qualifiers: Leukocytosis type: unspecified Qualified Code(s): D72.829 - Elevated white blood cell count, unspecified (3) Atrial fibrillation with controlled ventricular rate: Impression: Patient is not on any rate control medications at this time. Recently started on Eliquis approximately 10 days ago by material hauler, his notes were reviewed. Continued inpatient. Will hold if plans for surgical procedure. (4) PVD (peripheral vascular disease): Impression: Chronic condition, stable. Chronic wounds of left lower extremity. Outpatient wound care doctor is considering skin grafts. (5) GERD (gastroesophageal reflux disease): Impression: Patient reports today that she intermittently has difficulty swallowing, she feels that food gets "stuck" and won't move up or down her esophagus. She denies choking, but states she coughs until the food clears. This happens most days. - ALIGNING CHECKER consult Continue Protonix Qualifiers: Esophagitis presence: without esophagitis Qualified Code(s): K21.9 - Gastro-esophageal reflux disease without esophagitis (6) Hyperlipidemia: Impression: Chronic. Continue statin. Qualifiers: Hyperlipidemia type: unspecified Qualified Code(s): E78.5 - Hyperlipidemia, unspecified (7) Interstitial pulmonary fibrosis: Impression: Chronic. On 2L of oxygen at home, continue at this time. Has history of pulmonary hypertension as well. Was on CellCept previously, currently held as she gets worked up for her left lower extremity ulcers. Prednisone continued. (8) Diastolic heart failure: Impression: Compensated at this time. Continue Lasix. Qualifiers: Heart failure chronicity: chronic Qualified Code(s): I50.32 - Chronic diastolic (congestive) heart failure (9) Mixed connective tissue disease: Impression: Patient has been on immunosuppresants in the past. Stable. Continue to monitor.
[2024-10-09 04:46] LABS: HCT - HEMATOCRIT 34.4 % (37.0-47.0); HGB - HEMOGLOBIN 10.8 g/dL (12.0-16.0); MEAN CORPUSCULAR HEMOGLOBIN 32.4 pg (27.0-31.0); MEAN CORPUSCULAR HGB CONC 31.4 g/dL (32.0-36.0); MEAN CORPUSCULAR VOLUME 103.3 fL (81.0-99.0); MEAN PLATELET VOLUME 10.3 fL (7.9-10.8); RED BLOOD COUNT 3.33 10^6/uL (4.20-5.40); RED CELL DISTRIBUTION WIDTH 15.5 % (12.0-15.0)
[2024-10-09 05:07] LABS: CRP - C-REACTIVE PROTEIN 10.9 mg/dL (<0.5)
[2024-10-09 05:35] LABS: CREATININE 0.6 mg/dL (0.6-1.3); POTASSIUM 4.9 mmol/L (3.5-4.5)
[2024-10-09] MEDS: levoFLOXacin 750 MG TABLET PO SCH (11:22)
--- NOTE | 2024-10-09 12:15 | POST OP PROGRESS NOTE ---
Subjective General Admit Date: 10/06/24 Other Other Information/Narrative: 78yo F admitted on 10/05/24 for right hand cellulitis. Treated with IV antibiotics. S: Improving swelling, redness and pain. Denies F/C/NS. Ortho Surgical Progress Note Problem List Problem List: 78yo F admitted on 10/05/24 for right hand cellulitis which is continuing to improve. No signs of flexor tenosynovitis or abscess. The erythema, hand function and inflammatory markers have improved. She continues to complain of dorsal hand pain. -Transition to oral antibiotics -Strict non weight bearing and elevation -NPO at midnight for potential OR on 10/10/24 -Repeat CBC/CRP/ESR on 10/10/24 Exam Exam RIGHT UE: Improving erythema on the dorsum of the hand. The main focus area is over the third metacarpal phalangeal joint. There is a small abrasion in that location. Short arc range of motion of all MCP joints. However, with full flexion or extension she has pain. Nontender to palpation to deep palpation along the volar aspect of the hand and fingers. There is no significant swelling in the fingers. She discusses pain that radiates up the dorsum of the hand through the forearm up to her elbow. The erythema is marked and only extends to approximately the wrist. No fluctuance noted. Fires AIN/PIN/median/radial/ulnar nerves. SILT all distributions. 2+ Radial pulse, brisk cap refil to all digits IMAGING: Radiographs of the RIGHT Hand on October 05, 2024: No fractures. No foreign bodies. Diffuse osteopenia. Degenerative arthritis in the first carpometacarpal joint.
--- NOTE | 2024-10-09 12:31 | PROVIDER PROGRESS NOTE ---
<Statement entered by Sruthi Morales MD - 10/10/24 07:44> attestation that the patient was seen and examined by me with a separate encounter after being seen by PA student. I reviewed the student's documentation including patient history, physical examination, laboratory, imaging, clinical assessment and treatment plan. I have discussed the management of the patient with the student, and with the patient. There are no changes. Subjective Prog Note Date Prog Note Date: 10/09/24 Prog Note Time: 12:23 Subjective Pt reports feeling: Improved Subjective: Madelin is feel well today although a little frustrated with still being in the hospital, she is ready to go home and return to her normal life. The redness and swelling on her right hand have improved somewhat but she continues to have pain, especially in the dorsum of the hand. She denies chest pain, difficulty breathing, abdominal discomfort, headache. Current Medications Current Medications Current Medications: Current Medications Generic Name Dose Route Start Last Admin Trade Name Freq PRN Reason Stop Dose Admin Acetaminophen 650 mg 10/07/24 07:27 Acetaminophen 325 Mg Tablet PO QID PRN mild pain Hydrocodone Bitart/Acetaminophen 1 tab 10/05/24 15:47 10/09/24 00:49 Hydrocod/Acetam 5/325 Mg Tablet PO 1 tab Q4H PRN Administration Moderate Pain (Level 4-6) Ascorbic Acid 500 mg 10/06/24 09:00 10/09/24 09:30 Ascorbic Acid 500 Mg Tablet PO 500 mg DAILY YONY Administration Atorvastatin Calcium 20 mg 10/05/24 21:00 10/08/24 20:55 Atorvastatin 10 Mg Tablet PO 20 mg QPM YONY Administration Carvedilol 6.25 mg 10/05/24 21:00 10/09/24 09:29 Carvedilol 3.125 Mg Tablet PO 6.25 mg BID YONY Administration Cholecalciferol 25 mcg 10/06/24 09:00 10/09/24 09:30 Cholecalciferol 25 Mcg Tablet PO 25 mcg DAILY YONY Administration Clobetasol Propionate 1 applic 10/07/24 11:00 10/09/24 09:31 Clobetasol 0.05% Oint 15 Gm Tube TOP 1 applic DAILY YONY Administration Duloxetine HCl 60 mg 10/06/24 09:00 10/09/24 09:29 Duloxetine 60 Mg Capsule PO 60 mg DAILY YONY Administration Furosemide 20 mg 10/06/24 09:00 10/09/24 09:29 Furosemide 20 Mg Tablet PO 20 mg DAILY YONY Administration Levofloxacin 750 mg 10/09/24 12:00 10/09/24 11:22 Levofloxacin 750 Mg Tablet PO 750 mg 1200 YONY Administration Magnesium Oxide 400 mg 10/05/24 21:00 10/09/24 09:30 Magnesium Oxide 400 Mg Tablet PO 400 mg BID YONY Administration Morphine Sulfate 4 mg 10/06/24 12:09 10/08/24 19:13 Morphine 2 Mg/Ml Carpuject IVP 4 mg Q4HR PRN Administration Pain 8 to 10 Multivitamins 1 tab 10/06/24 08:00 10/09/24 09:30 Multivitamin Tablet PO 1 tab DAILYWM YONY Administration Ondansetron HCl 4 mg 10/05/24 15:12 Ondansetron Odt 4 Mg Tablet PO Q8H PRN nausea and vomiting Pantoprazole Sodium 40 mg 10/06/24 07:00 10/09/24 09:30 Pantoprazole 40 Mg Tablet PO 40 mg QDAC YONY Administration Dronedarone [Multaq] 1 each 10/06/24 13:00 10/09/24 09:29 400 Mg Tablet PO 1 each BID YONY Administration Phenol/Menthol 2 sprays 10/07/24 05:39 Phenol Throat [place] 177 Ml MM Q2HR PRN Throat Pain Prazosin HCl 1 mg 10/05/24 21:00 10/08/24 20:52 Prazosin 1 Mg Capsule PO 1 mg QPM YONY Administration Prednisone 5 mg 10/06/24 09:00 10/09/24 09:29 Prednisone 5 Mg Tablet PO 5 mg DAILY YONY Administration Sodium Chloride 10 ml 10/05/24 15:12 10/07/24 04:43 Sodium Chloride Flush 0.9% 10 Ml Syringe IVP 10 ml PRN PRN Administration NEEDED PER PROVIDER ORDERS Sodium Chloride 10 ml 10/05/24 17:00 10/09/24 05:04 Sodium Chloride Flush 0.9% 10 Ml Syringe IVP 10 ml 0100,0900,1700 YONY Administration Valacyclovir HCl 500 mg 10/06/24 09:00 10/09/24 09:29 Valacyclovir 500 Mg Tablet PO 500 mg DAILY YONY Administration Objective Vital Signs/Intake & Output Reviewed Vital Signs: Yes Vital Signs: Vital Signs x48h Temp Pulse Pulse Resp BP BP Pulse Ox 10/09/24 08:47 36.5 C 82 18 118/64 96 10/09/24 05:00 36.5 C 68 18 116/66 95 Intake & Output: Intake & Output 10/06/24 10/07/24 10/08/24 10/09/24 23:59 23:59 23:59 23:59 Intake Total 1286 / 1286 1638 / 1638 195 / 1954 250 / 250 Output Total 1300 / 1300 1601 / 1601 700 / 700 250 / 250 Balance -14 / -14 37 / 37 1254 / 1254 0 / 0 Objective General Appearance: positive No acute distress and Alert Eyes Bilateral: positive Normal inspection, PERRL and EOMI ENT: positive ENT inspection nml Neck: positive Nml inspection Respiratory: positive Chest non-tender and No respiratory distress Cardiovascular: positive Irregularly irregular Abdomen: positive Non-tender Back: positive Nml inspection; negative CVA tenderness (R) or CVA tenderness (L) Skin: positive Color nml Extremities: positive Other (R hand erythema, edema, and tenderness. Improved from yesterday. Pain continues to extend 2-3 inches up forearm. ) Neurologic/Psychiatric: positive Oriented x3, CN's nml (2-12), Motor nml, Sensation nml and Mood/affect nml Lab Results 10/09/24 04:40 10/09/24 04:40 Other Labs: Lab Results x24hrs 10/09/24 Range/Units 04:40 WBC 12.0 H (4.8-10.8) x10^3/uL RBC 3.33 L (4.20-5.40) 10^6/uL Hgb 10.8 L (12.0-16.0) g/dL Hct 34.4 L (37.0-47.0) % MCV 103.3 H (81.0-99.0) fL MCH 32.4 H (27.0-31.0) pg MCHC 31.4 L (32.0-36.0) g/dL RDW 15.5 H (12.0-15.0) % Plt Count 273 (130-450) 10^3/uL MPV 10.3 (7.9-10.8) fL ESR 81 H (0-30) mm/Hr Sodium 134 L (135-145) mmol/L Potassium 4.9 H (3.5-4.5) mmol/L Chloride 100 L (101-111) mmol/L Carbon Dioxide 29 (21-32) mmol/L Anion Gap 5.0 L (6-13) BUN 24 H (6-20) mg/dL Creatinine 0.6 (0.6-1.3) mg/dL Estimated GFR (MDRD) 97 (>89) Glucose 239 H (74-104) mg/dL Calcium 9.0 (8.5-10.3) mg/dL C-Reactive Protein 10.9 H (<0.5) mg/dL ABX Reporting Has patient been on IV antibiotics over the past 48 hours?: Yes Assessment/Plan Problem List (1) Cellulitis of right hand: Impression: Right hand cellulitis is continuing to improve. No signs of flexor tenosynovitis or abscess. The erythema, hand function and inflammatory markers have improved. She continues to complain of dorsal hand pain. We will transition to PO antibiotics to target known Pseudomonas colonization. Blood cultures preliminary results: no growth. -Stop IV cefipime and vancomycin - Start PO levofloxacin 750mg -Strict non weight bearing and elevation -NPO at midnight for potential OR on 10/10/24. Surgery is unlikely to be necessary with current improvements, but Orthopedics will continue to monitor in case of any changes that warrant intervention. -Repeat CBC/CRP/ESR on 10/10/24 (2) Leukocytosis: Impression: Resolving. WBC improved to 12.0 today. - Continue to trend CBC daily. Qualifiers: Leukocytosis type: unspecified Qualified Code(s): D72.829 - Elevated white blood cell count, unspecified (3) Atrial fibrillation with controlled ventricular rate: Impression: Patient is not on any rate control medications at this time. Recently started on Eliquis approximately 10 days ago by learning support aide, his notes were reviewed. Continued inpatient. Will hold if plans for surgical procedure. (4) PVD (peripheral vascular disease): Impression: Chronic condition, stable. Chronic wounds of left lower extremity. Outpatient wound care doctor is considering skin grafts. (5) Dysphagia: Impression: - Dysphagia assessed by FORECLOSURE SPECIALIST 10/08/24, continue self feeding with encouragement of small bites and frequent sips of water. - Minced and moist diet plan (6) GERD (gastroesophageal reflux disease): Impression: Chronic. Continue Protonix Qualifiers: Esophagitis presence: without esophagitis Qualified Code(s): K21.9 - Gastro-esophageal reflux disease without esophagitis (7) Hyperlipidemia: Impression: Chronic. Continue statin. Qualifiers: Hyperlipidemia type: unspecified Qualified Code(s): E78.5 - Hyperlipidemia, unspecified (8) Interstitial pulmonary fibrosis: Impression: Chronic. On 2L of oxygen at home, continue at this time. Has history of pulmonary hypertension as well. Was on CellCept previously, currently held as she gets worked up for her left lower extremity ulcers. Prednisone continued. (9) Diastolic heart failure: Impression: Compensated at this time. Continue Lasix. Qualifiers: Heart failure chronicity: chronic Qualified Code(s): I50.32 - Chronic diastolic (congestive) heart failure (10) Mixed connective tissue disease: Impression: Patient has been on immunosuppresants in the past. Stable. Continue to monitor.
--- NOTE | 2024-10-09 15:27 | OT Plan of Care ---
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 low back surgery over 24 hrs of work. she was very crooked. many fused vertebrae. full of cadaver bones. History of total bilateral knee replacement Medical History (Updated 10/09/24 @ 12:48 by Destinee Sesay) Thyroid nodule (07/03/12) never heard that she had this Recurrent UTI (urinary tract infection) (08/16/22) Obstructive sleep apnea (10/22/16) better now. Dyspnea Pain in left ankle and joints of left foot Gastroparesis Pulmonary fibrosis Vocal cord dysfunction Frequent ventricular premature beats Anxiety disorder Assessment Assessment 78yo F admitted on 10/05/24 for right hand cellulitis. In the emergency room, patient was vitally stable, afebrile, saturating 97% on her home 2 L. Lab work was reviewed, and it did show a leukocytosis of 20.6. She also had a slightly elevated glucose of 234. ESR, CRP, blood cultures are ordered, remain pending. X-ray of the hand was done, and it does show osteopenia, moderate degenerative changes of the STT joint. Severe degenerative changes of the first carpometacarpal joint. All changes noted were chronic. She received a dose of ciprofloxacin and cefazolin, and was admitted for cellulitis. Orthopedic surgery was consulted - No signs of flexor tenosynovitis or abscess. The erythema, hand function and inflammatory markers have improved. Pt transitioned to PO antibiotics to target known Pseudomonas colonization. Blood cultures preliminary results: no growth. Per 10/09 Ortho note update - NPO at midnight for potential OR on 10/10/24. Surgery is unlikely but Orthopedics will continue to monitor in case of any changes that warrant intervention. L LE cellulitis being managed by wound care. WBAT. R UE NEB through hands OK for platform WB for mobility. Met sitting in chair, on RA VSS. A& Ox4, willing to participate with therapy. Performed sit to stand MIN A and ambulation 10ft using platform RW MOD A slowed, guarded pace requiring cues for safety and WB precautions. Assessment of R UE: Redness and edema within markers; Report 6/10 pain. Limited wrist flexion /extension, digit flex/extension and opposition Fair grasp with MMT grossly 3-/5 throughout. Sensation appears in tact. Pt educated to perform gentle ROM and opposition with elevation to promote healing. Currently MAX A LB, MOD A UB ADL with full set up and increased time. Overall presents with decreased strength/ROM of R UE, endurance, activity tolerance and ADL status. Will benefit from cont OT services during acute stay. Rec d/c to SNF at this time. Goals - Activities of Daily Living Improve Upper Extremity Standby Assist Dressing to: Improve Lower Extremity Standby Assist Dressing to: Improve Grooming/Hygiene to: Standby Assist Improve Bathing to: Standby Assist Improve Toileting to: Standby Assist Plan Treatment Frequency 1x/day Duration Until discharge -Discharge Recommendations Discharge Location [facility] Support/Services Needed With assist Recommended Equipment Grab bars Transport Needs at Discharge Wheelchair van
--- NOTE | 2024-10-09 15:28 | PT Plan of Care ---
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 Dyspnea Pain in left ankle and joints of left foot Gastroparesis Pulmonary fibrosis Vocal cord dysfunction Frequent ventricular premature beats Anxiety disorder Surgical History S/P insertion of intrathecal pump S/P insertion of spinal cord stimulator History of carpal tunnel surgery of left wrist H/O shoulder surgery History of lung biopsy Status post creation of pericardial window History of hysterectomy History of cholecystectomy History of tonsillectomy History of laminectomy neck first and then low back 6 m later. low back surgery over 24 hrs of work. she was very crooked. many fused vertebrae. full of cadaver bones. History of total bilateral knee replacement BALANCE/FUNCTIONAL RESULTS Sitting Balance: Good Standing Balance: Fair ASSESSMENT Assessment: Pt is a pleasant 78yo F referred for PT eval d/t limited mobility and weakness. Admitted with RUE cellulitis NWB per ortho, also has history of pulmonary fibrosis and LLE wound, currently wrapped in gauze and weeping. Pt is reportedly Alex at home using 4WW for short distances up to 20' but uses a wc for longer distances. Pt lives with who is present for a portion of the eval. Extensive medical and surgical hx; please see chart for further details. Upon PT eval, pt is sitting in b/s chair. Provided a platform walker and educated on safe use. Requires mod to max cueing for NWBing of RUE and modAx1 for amb x10' with close chair follow. Pt benefits from moderate multimodal cuein g d/t high distractibility. Overall presenting with deficits in strength, safety awareness, gait and is unsafe to live in a multistory home at this time. Pt will benefit from skilled PT in acute setting to improve upright tolerance and progress gait training. When medically clear, PT rec dc to SNF. GOALS Improve supine to sit to:: Modified Independent Improve sit to stand to:: Contact Guard Improve pivot transfer ability to:: Contact Guard Improve sit to supine to:: Standby Assist Improve gait ability to:: CGA Advance Assistive Device to:: Front Wheeled Walker Increase distance walked to (in feet):: 20 Reduce verbal cues to:: 0 Reduce physical cues to:: 0 Other gait goal:: maintain R hand NWB throughout gait training 100% of time Improve Lower Extremity ROM to:: Limited/End Range Improve Lower Extremity Strength to:: Fair Improve Upper Extremity ROM to:: WFL Improve Upper Extremity Strength to:: Good Improve Sitting Balance to:: Good PLAN Frequency: 1-2x/day Duration: Until goals are met DISCHARGE RECOMMENDATIONS Discharge Location: [facility] Facility [place] Equipment Recommended: Front wheeled walker Other Discharge Equipment: TBD Transport Needs at Discharge: Wheelchair van
--- NOTE | 2024-10-09 15:29 | OT Plan of Care ---
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 Dyspnea Pain in left ankle and joints of left foot Gastroparesis Pulmonary fibrosis Vocal cord dysfunction Frequent ventricular premature beats Anxiety disorder Surgical History (Updated 10/09/24 @ 15:29 by Eri Solis OTL) S/P insertion of intrathecal pump S/P insertion of spinal cord stimulator History of carpal tunnel surgery of left wrist H/O shoulder surgery History of lung biopsy Status post creation of pericardial window History of hysterectomy History of cholecystectomy History of tonsillectomy History of total bilateral knee replacement Assessment and Goals ASSESSMENT Assessment: 78yo F admitted on 10/05/24 for right hand cellulitis. In the emergency room, patient was vitally stable, afebrile, saturating 97% on her home 2 L. Lab work was reviewed, and it did show a leukocytosis of 20.6. She also had a slightly elevated glucose of 234. ESR, CRP, blood cultures are ordered, remain pending. X-ray of the hand was done, and it does show osteopenia, moderate degenerative changes of the STT joint. Severe degenerative changes of the first carpometacarpal joint. All changes noted were chronic. She received a dose of ciprofloxacin and cefazolin, and was admitted for cellulitis. Orthopedic surgery was consulted - No signs of flexor tenosynovitis or abscess. The erythema, hand function and inflammatory markers have improved. Pt transitioned to PO antibiotics to target known Pseudomonas colonization. Blood cultures preliminary results: no growth. Per 10/09/24 Ortho note update - NPO at midnight for potential OR on 10/10/24. Surgery is unlikely but Orthopedics will continue to monitor in case of any changes that warrant intervention. L LE cellulitis being managed by wound care. WBAT. R UE NEB through hands OK for platform WB for mobility. Met sitting in chair, on RA VSS. A&Ox4, willing to participate with therapy. Performed sit to stand MIN A and ambulation 10ft using platform RW MOD A slowed, guarded pace requiring cues for safety and WB precautions. Assessment of R UE: Redness and edema within markers; Report 6/10 pain. Limited wrist flexion/extension, digit flex/extension and opposition Fair grasp with MMT grossly 3-/5 throughout. Sensation appears in tact. Pt educated to perform gentle ROM and opposition with elevation to promote healing. Currently MAX A LB, MOD A UB ADL with full set up and increased time. Overall presents with decreased strength/ROM of R UE, endurance, activity tolerance and ADL status. Will benefit from cont OT services during acute stay. Rec d/c to SNF at this time. -Activities of Daily Living Improve Upper Extremity Dressing to:: Standby Assist Improve Lower Extremity Dressing to:: Standby Assist Improve Grooming/Hygiene to:: Standby Assist Improve Bathing to:: Standby Assist Improve Toileting to:: Standby Assist OT Inpatient Plan PLAN Treatment Frequency: 1x/day Duration: Until discharge -Discharge Recommendations [facility] Support/Services Needed: With assist Recommended Equipment: Grab bars Transport Needs at Discharge: Wheelchair van
[2024-10-09 20:49] LABS: ESTIMATED AVERAGE GLUCOSE 154 mg/dL (70-100)
[2024-10-09] MEDS ORDERED: MAGIC MOUTHWASH (NYSTATIN) 120 ML BOTTLE PO PRN (23:32)
--- NOTE | 2024-10-10 10:03 | Discharge Summary ---
"Discharge Summary Admit Date: 10/05/24 Discharge Date: 10/10/24 Discharging Provider: Sruthi Morales MD Primary Care Provider: AZUCENA Pratt Code Status: Do Not Attempt Resuscitation Discharge Facility Name: Home DIAGNOSES Admission Diagnoses: Cellulitis of right upper limb Discharge Diagnoses with Status of Each Condition: (1) Cellulitis of right upper limb - Improving with appropriate response to IV antibiotics, transition to PO antibiotics. Followed by Orthopedics while inpatient without need for surgical intervention. Will need home PT/OT. (2) Leukocytosis - Resolving with treatment of above cellulitis (3) Atrial fibrillation with controlled ventricular rate - Chronic and stable. Continue home medications. (4) PVD (peripheral vascular disease) - Chronic condition, stable. Continue follow up with outpatient wound care. (5) Dysphagia - Chronic, assessed by [employer]ENTS ASSOCIATE with instructions for minced/moist diet with encouragement of small bites and frequent sips of water. (6) GERD (gastroesophageal reflux disease) - Chronic, stable. Continue home medication. (7) Hyperlipidemia - Chronic, stable. Continue home medication. (8) Interstitial pulmonary fibrosis - Chronic, stable. Continue home medication. (9) Diastolic heart failure- Chronic, stable, Continue home medication. (10) Mixed connective tissue disease - Chronic, stable. Continue home medication. HPI History of Present Illness: Patient is a 78-year-old female with a history of diastolic heart failure, venous insufficiency with chronic wounds of the left lower extremity including Pseudomonas, interstitial lung disease on 2 L at baseline who presents with right hand pain. Patient states that she has had very dry hands, and noticed a crack in her skin on her right third digit, right around her metacarpal joint. Over the last 3 days, she has noticed worsening redness and swelling of her entire right hand. She describes the pain as sharp and shooting up her right forearm all the way up to her elbow. It is 10 out of 10, even with minimal movement. She has also noticed warmth, swelling of the entire hand. She is unable to bend her fingers because of the pain. She has never had any infections of her hand, nor has she had any surgeries in the area. She does have chronic wounds of her left lower extremity, and recently completed a course of IV antibiotics as well as oral antibiotics. She sees a wound care doctor regularly. At this time, she has no fevers or chills. She has some nausea. In the emergency room, patient was vitally stable. Her blood pressure was 127 or 56, heart rate was 86, she was afebrile, saturating 97% on her home 2 L. Lab work was reviewed, and it did show a leukocytosis of 20.6. She also had a slightly elevated glucose of 234. ESR, CRP, blood cultures are ordered, remain pending. X-ray of the hand was done, and it does show osteopenia, moderate degenerative changes of the STT joint. Severe degenerative changes of the first carpometacarpal joint. All changes noted were chronic. She received a dose of ciprofloxacin and cefazolin, and was admitted for cellulitis. Patient lives at home with her . She is usually wheelchair-bound due to her numerous back surgeries. She occasionally uses a walker and cane. 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 Orthopedic surgery was consulted to rule out tenosynovitis. Patient has had a reaction to contrast, and is hesitant to use it again. She also has multiple hardware changes to her back, and is unable to get an MRI done. CONSULTS | PROCEDURES Consultations: Orthopedic Surgery, Dr. Phillips Procedures: 1. 3 views of the right hand shows severe diffuse osteopenia. No fracture. 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 A repeat film was done because there is a lump on the dorsum of her right hand now that redness and swelling has abated. No arely evidence of osteomyelitis. No fractures. No acute changes. 2. Blood cultures negative from October 05 after 5 days. HOSPITAL COURSE Hospital Course: Presented to ED with R hand pain and swelling, treated with IV torodol and morphine. Admitted 10/05/24 for R hand cellulitis But with findings of deep tissue infection/tenosynovitis. treated with IV vancomycin and Rocephin. Orthopedic consult with recommendation to monitor, no wash out or surgery needed at that time. On 10/06/24, IV antibiotics changed to vancomycin and cefepime due to prior LLE culture with Pseudomonas. On 10/08/24, patient noted with chronic dysphagia, assessed by EVENTS ASSOCIATE with recommendation for minced and moist diet, encourage small bites and frequent sips. He is dubious the patient will comply. She tends to be a fast eater that will eat half of her meal without doing any water. She swallows without chewing. On 10/09/24, IV antibiotics discontinued, switched to PO levofloxacin to target Pseudomoas. Today 10/10/24, discontinued levofloxacin due to risk of QT prolongation and switched to Bactrim PO. Repeat XR of R hand today shows no bony involvement. Discharge home with PT, OT, social work, and bath aid. She will need wound care on that left leg. Although she has been followed by Dr. Cardona in the wound clinic, she has less and less mobility. It is harder for her to leave the house. So I am asking the home health agency to also send a nurse. 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 She has grown out MRSA as well as Pseudomonas on that leg. I do not she has been referred to dermatology, pain management clinic, palliative care, and nutrition consult. Her dressing changes are a plain Hydrofiber covered with rolled gauze and secured with tape. At home she is to continue clobetasol 0.05% ointment twice daily with occlusion. He felt he was going to be discontinuing that with her next visit. Continue compression with Tubigrip's. ALLERGIES Allergies Allergy/AdvReac Type Severity Reaction Status Date / Time iodine Allergy Severe Rash Verified 10/05/24 04:05 isoniazid Allergy Severe Rash Verified 10/05/24 04:05 zolpidem (From Ambien) Allergy Severe Hallucinati Verified 10/05/24 04:05 ons adhesive tape Allergy Intermediate Rash Verified 09/05/24 15:32 artichoke Allergy Unknown Verified 10/05/24 04:05 pregabalin (From Lyrica) Allergy muscle Verified 10/05/24 04:05 spasms NSAIDS (Non-Steroidal AdvReac Intermediate abd pain Verified 10/05/24 04:05 Anti-Inflamma cantaloupe AdvReac Mild abdomen Verified 10/05/24 04:05 swells, makes her miserable. amitriptyline AdvReac Hallucinati Verified 09/05/24 15:32 ons fentanyl AdvReac Hallucinati Verified 10/05/24 04:05 ons gabapentin AdvReac Hallucinati Verified 10/05/24 04:05 ons MEDICATIONS Ambulatory Orders Medication Instructions Recorded Confirmed inulin 2 gram chewable tablet 4 g PO QDAY 05/22/24 10/05/24 (Fiber Gummies) prazosin 1 mg capsule 1 mg PO QPM 05/22/24 10/05/24 vitamin B complex 2 tab PO QDAY 05/22/24 10/05/24 acetaminophen 325 mg tablet 325 - 650 mg PO QDAY PRN pain 06/05/24 10/05/24 ascorbic acid (vitamin C) 500 mg 500 mg PO QDAY 06/05/24 10/05/24 tablet aspirin 81 mg tablet,delayed 162 mg PO QDAY 06/05/24 10/05/24 release atorvastatin 20 mg tablet (Lipitor) 20 mg PO QPM 06/05/24 10/05/24 calcium 200 mg (as 1 tab PO QDAY 06/05/24 10/05/24 citrate)-vitamin D3 6.25 mcg (250 unit) tablet (Citracal-D3 Petites) carvedilol 6.25 mg tablet (Coreg) 6.25 mg PO BID 06/05/24 10/05/24 cholecalciferol (vitamin D3) 25 25 mcg PO QDAY 06/05/24 10/05/24 mcg (1,000 unit) tablet dronedarone 400 mg tablet (Multaq) 400 mg PO BID 06/05/24 10/05/24 duloxetine 60 mg capsule,delayed 60 mg PO QDAY 06/05/24 10/05/24 release (Cymbalta) estradiol 0.01% (0.1 mg/gram) 0.5 - 1 g topical QWEEK 06/05/24 10/05/24 vaginal cream ferrous sulfate 142 mg (45 mg 142 mg PO QDAY 06/05/24 10/05/24 iron) tablet,extended release (Slow Fe) glycerin (adult) 1 supp KS QDAY PRN constipation 06/05/24 10/05/24 hydromorphone (PF) 10 mg/mL 3.3 mg epidural DAILY 06/05/24 10/05/24 injection solution isosorbide mononitrate 30 mg 30 mg PO QDAY 06/05/24 10/05/24 tablet,extended release 24 hr multivitamin-ferrous 1 tab PO QDAY 06/05/24 10/05/24 fumarate-folic acid 18 mg-400 mcg tablet (One Daily Multivitamin with Iron (folic acid)) mycophenolate mofetil 500 mg 1,000 mg PO BID 06/05/24 10/05/24 tablet (CellCept) nitroglycerin 0.4 mg sublingual 0.4 mg sublingual Q5M PRN chest 06/05/24 10/05/24 tablet pain pantoprazole 40 mg tablet,delayed 40 mg PO QDAY 06/05/24 10/05/24 release potassium chloride 10 mEq 10 meq PO BID 06/05/24 10/05/24 capsule,extended release valacyclovir 500 mg tablet 500 mg PO QDAY #90 tabs 06/06/24 10/05/24 nystatin 100,000 unit/gram topical 1 applic topical BID #60 grams 06/26/24 10/05/24 powder magnesium 250 mg tablet 250 mg PO BID #30 tabs 08/03/24 10/05/24 clobetasol 0.05 % topical ointment See Rx Instructions .Route 08/10/24 10/05/24 .COMPLEX #60 grams prednisone 5 mg tablet 5 mg PO DAILY 08/10/24 10/05/24 ondansetron 4 mg disintegrating 4 mg PO Q8H PRN nausea and 08/30/24 10/05/24 tablet vomiting #60 tabs furosemide 20 mg tablet 20 mg PO DAILY #30 tabs 08/31/24 10/05/24 apixaban 2.5 mg tablet (Eliquis) 2.5 mg PO BID 10/05/24 10/05/24 mupirocin 2 % topical ointment 1 applic topical BID 10/05/24 10/05/24 cephalexin 500 mg capsule 500 mg PO TID #11 caplets 10/10/24 nystatin 100,000 unit/mL oral 1 ml buccal BID #60 mL 10/10/24 suspension nystatin 100,000 unit/mL oral 1 ml buccal DAILY thrush #60 mL 10/10/24 suspension PHYSICAL EXAM AT DISCHARGE General Appearance: positive No acute distress and Alert Eyes Bilateral: positive Normal inspection, PERRL and EOMI ENT: positive ENT inspection nml Neck: positive Nml inspection and No JVD Respiratory: positive No respiratory distress Cardiovascular: positive Regular rate & rhythm Abdomen: positive Non-tender Back: positive Nml inspection Skin: positive Color nml Extremities: positive Calf tenderness and Other (right hand with improved redness, a small amount of residual swelling on dorsal wrist, and improved but ongoing tenderness to palpation of dorsal hand and wrist. Her left leg is wrapped in Kerlix bandages. She is the skin is diffusely red. Flaking. Small ulcers along the calf. But not acutely in) Neurologic/Psychiatric: positive Oriented x3, CN's nml (2-12), Motor nml, Sensation nml and Mood/affect nml LABS 10/09/24 04:40 10/09/24 16:12 DIAGNOSTIC IMAGING Diagnostic Imaging Results: Final report reviewed Diagnostic Imaging Results Comments: XR R hand without acute bony abnormalities FOLLOW UP Follow Up: Patient to follow up with PCP for ongoing management of chronic conditions, and she is to seek urgent care if cellulitis symptoms (redness, pain, warmth, swelling) worsen or fail to improve with antibiotic treatment. TIME SPENT Time Spent in Discharge (Minutes): 20 Discharge Plan Discharge Patient Disposition: 06 Home Health Service Condition: Stable Prescriptions: New nystatin 100,000 unit/mL suspension 1 ml buccal DAILY Qty: 60 0RF Rx Instructions: administer 1/2 of dose in each side of the mouth cephalexin 500 mg capsule 500 mg PO TID Qty: 11 0RF nystatin 100,000 unit/mL suspension 1 ml buccal BID Qty: 60 0RF Rx Instructions: switch and spit Continued valacyclovir 500 mg tablet 500 mg PO QDAY Qty: 90 1RF Rx Instructions: Take 1 tablet by mouth once a day nystatin 100,000 unit/gram powder 1 applic topical BID Qty: 60 5RF Rx Instructions: Apply liberally to skin twice a day until symptoms resolve ondansetron 4 mg tablet,disintegrating 4 mg PO Q8H PRN (Reason: nausea and vomiting) Qty: 60 1RF Rx Instructions: Take 1 tablet by mouth every eight hours as needed for nausea and vomiting atorvastatin [Lipitor] 20 mg tablet 20 mg PO QPM Rx Instructions: Take 1 tablet by mouth once a day mycophenolate mofetil [CellCept] 500 mg tablet 1,000 mg PO BID Rx Instructions: Take 2 tablet by mouth twice a day duloxetine [Cymbalta] 60 mg capsule,delayed release(DR/EC) 60 mg PO QDAY Rx Instructions: Take 1 capsule by mouth once a day potassium chloride 10 mEq capsule, extended release 10 meq PO BID Rx Instructions: Take 1 tablet by mouth once a day Multaq 400 mg tablet 400 mg PO BID Rx Instructions: Take 1 tablet by mouth twice a day isosorbide mononitrate 30 mg tablet extended release 24 hr 30 mg PO QDAY Rx Instructions: Take 1 tablet by mouth once a day aspirin 81 mg tablet,delayed release (DR/EC) 162 mg PO QDAY Rx Instructions: Take 2 tablet by mouth once a day carvedilol [Coreg] 6.25 mg tablet 6.25 mg PO BID Rx Instructions: Take 1 tablet by mouth twice a day ferrous sulfate [Slow Fe] 142 mg (45 mg iron) tablet extended release 142 mg PO QDAY Rx Instructions: Take 1 tablet by mouth once a day calcium citrate-vitamin D3 [Citracal-D3 Petites] 200 mg-6.25 mcg (250 unit) tablet 1 tab PO QDAY Rx Instructions: Take 1 tablet by mouth once a day estradiol 0.01 % (0.1 mg/gram) cream 0.5 - 1 g topical QWEEK Rx Instructions: Apply 1/2 to 1 gram to vaginal opening 2-3 times per week prednisone 5 mg tablet 5 mg PO DAILY clobetasol 0.05 % ointment See Rx Instructions .Route .COMPLEX Qty: 60 1RF Rx Instructions: Apply a generous amount onto the open wound QHS. After application, occlude the wound with plastic wrap (e.g., Saran wrap) to enhance absorption. Remove the occlusive wrap after 12 hours and clean and dress the wound as usual qAM as directed with Aquacel Ag, ABD, OptiLock, and roll gauze. Discontinue if signs of irritation, infection, or wound enlargement occur and consult your physician promptly. furosemide 20 mg tablet 20 mg PO DAILY Qty: 30 0RF Patient Comments: PRN magnesium 250 mg tablet 250 mg PO BID Qty: 30 0RF mupirocin 2 % ointment 1 applic TOPICAL BID Patient Comments: APPLY TOPICALLY TO OPEN WOUND TWICE DAILY Eliquis 2.5 mg tablet 2.5 mg PO BID prazosin 1 mg capsule 1 mg PO QPM Patient Comments: Pt stated she is currently taking this medication. Rx Instructions: Take 1 capsule by mouth every night Fiber Gummies 2 gram tablet,chewable 4 g PO QDAY vitamin B complex Tablet 2 tab PO QDAY glycerin (adult) Suppository 1 supp KS QDAY PRN (Reason: constipation) Rx Instructions: Insert 1 suppository rectally once a day as needed hydromorphone (PF) 10 mg/mL solution 3.3 mg epidural DAILY Patient Comments: by pump Rx Instructions: 3.3 mg INTRATHECALLY DAILY VIA PUMP acetaminophen 325 mg tablet 325 - 650 mg PO QDAY PRN (Reason: pain) Rx Instructions: Take 1-2 tablet by mouth once a day as needed for pain One Daily Multivit-Iron(folic) 18-400 mg-mcg tablet 1 tab PO QDAY Rx Instructions: Take 1 tablet by mouth once a day nitroglycerin 0.4 mg tablet, sublingual 0.4 mg sublingual Q5M PRN (Reason: chest pain) Rx Instructions: Take 1 tablet under tongue as needed at onset of chest pain. Repeat every 5 minutes for 3 doses or until symptoms resolve. all 911 if not resolved after 3rd dose. cholecalciferol (vitamin D3) 25 mcg (1,000 unit) tablet 25 mcg PO QDAY Rx Instructions: Take 1 tablet by mouth once a day ascorbic acid (vitamin C) 500 mg tablet 500 mg PO QDAY pantoprazole 40 mg tablet,delayed release (DR/EC) 40 mg PO QDAY Rx Instructions: Take 1 tablet by mouth once a day Activity Restrictions: Additional Comments Activity Restrictions/Additional Instructions: Right hand is non-weight bearing. Activity as tolerated and with safety precautions recommended by PT/OT (wheelchair, walker with trough). Diet: Regular Health Concerns: Because your legs are chronically swollen, you have leg ulcerations with the skin has broken down. You also have atrial fibrillation, interstitial pulmonary fibrosis. You presented to the hospital with right hand swelling, redness, and warmth and exquisite tenderness to the top of your right hand near the wrist. Will felt that you had a severe deep tissue infection in the hand. We consulted orthopedics And they agree. They did not feel that you needed to go to the operating room to have the tendons and ligaments washed out. You responded to intravenous antibiotics. We then put you on oral antibiotics and you stayed stable. Your white cell count has come down significantly. We now feel that you are stable to return to home. While you were here we identified you was having weakness that impeded your ability to completely take care of yourself on your own. You shared with us that you do have a walker and a wheelchair at home. Your is your primary caregiver. You are slowing down. You and your are reluctantly considering moving to [facility] to be near your kids. I hardly endorse that decision. We also talked about your resuscitation status. You tell us that you recognize that you are slowing down, and that you do not want to be resuscitated if the outcome is going to be poor. We discussed resuscitation and its poor survivability statistics. Nevertheless, because you still are not sure, you still wish to remain with a full CODE STATUS. If you were to stop breathing and have no heart rate, you want CPR done. You want your heart shocked to see if it can start. And you are okay with us intubating you to breathe for you. Physical therapy and Occupational Therapy evaluated you because of the weakness and diminished mobility. They also feel you need therapy for your right hand. They felt that you would benefit from short-term rehabilitation in a [facility] facility but you declined that opportunity. As such I am sending you home with home health physical therapy, Occupational Therapy, bath aide, social media developer, and nursing. Physical therapy recommends that you use a walker platform brace for your walker so that your right arm can rest on the walker safely. Unfortunately the care does not pay for that and I will be writing a prescription for that. You also were identified as having thrush. You tell us that you tend to get thrush when you are on antibiotics. As such I am sending you home with nystatin swish and spit. The antibiotic to finish your treatment for your hand is Keflex 500 mg 3 times a day. Please see your primary care provider in follow-up in the next 2 weeks. Print Language: Telugu Patient Instructions: Infectious Tenosynovitis Follow-up Care: Melba Gallagher ARNP [Primary Care Provider] -"
[2024-10-10 12:13] VITALS: BP 128/63; TEMP 97.5; O2SAT 97
--- NOTE | 2024-10-10 12:20 | XRAY Report ---
PROCEDURE: XR Hand 1-2V RT INDICATIONS: swelling over dorsal hand with cellulits TECHNIQUE: 2 views of the hand(s) acquired. COMPARISON: None. FINDINGS: Bones: No fractures or dislocations. Polyarticular osteoarthritic degenerative changes with severe f irst CMC joint osteoarthritis. No suspicious bony lesions. No osseous erosions or periosteal reaction . Soft tissues: Chondrocalcinosis. No soft tissue gas. IMPRESSION: No acute osseous abnormality. No arely evidence of osteomyelitis. Please note plain-film radiographs can be insensitive to changes of osteomyelitis in the initial phase of the disease. If there is continued clinical concern for oste omyelitis, consider three-phase nuclear medicine bone scan or MRI for additional evaluation. Reviewed by: Isabel Hopper MD, PhD on 10/10/2024 12:18 PM PST Approved by: Isabel Hopper MD, PhD on 10/10/2024 12:18 PM PST Station ID: [id number]
--- NOTE | 2024-10-10 16:54 | ADVANCE CARE PLANNING NOTE ---
Advance Care Planning Planning Encounter Date: 10/10/24 Time: 08:30 Purpose: Discussed CODE STATUS and goals for the future Parties in Attendance: The patient, hospitalist, and PA student Lázaro Decisional Capacity of the Patient: Alert and oriented to person, place, time and situation. 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 Patient is on immune modulating drugs. Encounter Subjective/Patient's Story: She and her live in their own home. He is already in his 80s. He is 86 years old. He is retired [employer] and a very healthy gentleman. She on the other hand has been gradually failing. She has had a few falls over the last few months. She has connective tissue disease with dermatomyositis that is also affected her lungs and is left her fatigued, short of breath. She uses a walker to get around the house, and if she is really tired she uses a wheelchair. The bedroom is down 2 steps for her to get in bed. She is able to dress herself, and feed herself but her does the brunt of the [employer], cooking and cleaning. She recognizes that she is getting weaker, and needing more help. She recognizes that eventually she will be completely dependent for activities of daily living. She has been trying to get her to sell the house and moved to the [facility]. They have a child on the [facility] and they would love to have them come live near them. Not only so that they are not so far away but because they are going to need more help. But she cannot get her to move in that direction yet. "He is very stubborn". She says that her pain is present on a daily basis. It is not severe. But her joints just ache. Her back, her hips. She rarely has incontinence. She has no skin breakdown other than chronic leg ulcers on the left side from chronic venous stasis. She wants to be a full code. We discussed resuscitative measures. What it meant to be a full code and what it means and practicality. I discussed chest compression, cardioversion, intubation. I discussed the latest literature that states that resuscitation beyond 20 minutes has limited survivability, and at 30 minutes survivability is less than 4%. Survivability just meant that you had a pulse or pressure. It did not necessarily mean that you had cognitive function or that you were going to return to your previous baseline status. These are poor, dismal statistics. She states that she recognizes. In her logical self stated that she would not want to be resuscitated. But right now she just feels like to say that she was good to be a DO NOT RESUSCITATE would mean that she is "going to let go". And she is not ready to let go. Objective/Medical Story: Patient is a 78-year-old female with a history of diastolic heart failure, venous insufficiency with chronic wounds of the left lower extremity including Pseudomonas, interstitial lung disease on 2 L at baseline who presents with right hand pain. Patient states that she has had very dry hands, and noticed a crack in her skin on her right third digit, right around her metacarpal joint. Over the last 3 days, she has noticed worsening redness and swelling of her entire right hand. She describes the pain as sharp and shooting up her right forearm all the way up to her elbow. It is 10 out of 10, even with minimal movement. She has also noticed warmth, swelling of the entire hand. She is unable to bend her fingers because of the pain. She has never had any infections of her hand, nor has she had any surgeries in the area. She does have chronic wounds of her left lower extremity, and recently completed a course of IV antibiotics as well as oral antibiotics. She sees a wound care doctor regularly. At this time, she has no fevers or chills. She has some nausea. In the emergency room, patient was vitally stable. Her blood pressure was 127 or 56, heart rate was 86, she was afebrile, saturating 97% on her home 2 L. Lab work was reviewed, and it did show a leukocytosis of 20.6. She also had a slightly elevated glucose of 234. ESR, CRP, blood cultures are ordered, remain pending. X-ray of the hand was done, and it does show osteopenia, moderate degenerative changes of the STT joint. Severe degenerative changes of the first carpometacarpal joint. All changes noted were chronic. She received a dose of ciprofloxacin and cefazolin, and was admitted for cellulitis. Patient lives at home with her . She is usually wheelchair-bound due to her numerous back surgeries. She occasionally uses a walker and cane. 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 Orthopedic surgery was consulted to rule out tenosynovitis. Patient has had a reaction to contrast, and is hesitant to use it again. She also has multiple hardware changes to her back, and is unable to get an MRI done. Orthopedic surgery did feel that was a deep-seated tenosynovitis. But did not need surgery to washout. Her white cell count gradually responded. She was on broad-spectrum antibiotics because of her immunosuppressive status and was continued on vancomycin and cefepime. Once her white cell count was acceptable, and her hand was much less swollen and much less hot, we switched her over to oral antibiotics. She has significant mobility issues. She was seen by PT and OT. They are recommending retirement facility for rehab. They feel that she would benefit from strengthening exercises. They also feel that she needs hand therapy for that right hand. Goals of Care: 1. Right now she just wants to get her hand improved. 2. She would like to reintroduce the discussion of moving with her 3. She would like to sit down and talk to her family about about what the future would look like for her Plan: 1. No change in CODE STATUS at this time. She is still a full code. 2. She was not interested in filling out a POLST today. But when the time comes, she should fill 1 out. 3. Slowly start making plans for the future. With that that means moving to an assisted living facility, moving in with her children, or moving into a new home on the [facility] that is single level, handicapped accessible. Code Status: Attempt Resuscitation Time spent on advance care plannin minutes
== END 2024-10-10 14:17 | disposition home health service (06) | DRG 603 ==
LOC: ED 03:51 → MS2 03:51
PROVIDERS: ADMIT Internal Medicine; ATTEND Internal Medicine
DX: L03.113 Cellulitis of right upper limb; J84.10 Pulmonary fibrosis, unspecified; M65.141 Other infective (teno)synovitis, right hand; Z99.81 Dependence on supplemental oxygen; K21.9 Gastro-esophageal reflux disease without esophagitis; S81.802D Unspecified open wound, left lower leg, subsequent encounter; I48.91 Unspecified atrial fibrillation; R13.10 Dysphagia, unspecified; I87.2 Venous insufficiency (chronic) (peripheral); E78.5 Hyperlipidemia, unspecified; M34.9 Systemic sclerosis, unspecified; I50.32 Chronic diastolic (congestive) heart failure; Z87.891 Personal history of nicotine dependence; R53.1 Weakness; M35.9 Systemic involvement of connective tissue, unspecified; Z99.3 Dependence on wheelchair; M18.11 Unilateral primary osteoarthritis of first carpometacarpal joint, right hand; B95.62 Methicillin resistant Staphylococcus aureus infection as the cause of diseases classified elsewhere; I73.9 Peripheral vascular disease, unspecified

== ENCOUNTER 2024-10-16 11:18 | Inpatient (IN) ==
--- NOTE | 2024-10-16 11:54 | ED Physician Documentation ---
History of Present Illness Stated complaint Stated Complaint: IRREGULAR LABS,PCP REFFERAL Chief complaint Chief Complaint: Wound History obtained from History obtained from: Patient History of Present Illness Timing: Prior to arrival Additonal information Additional information: This is a 78-year-old woman with history of pulmonary fibrosis on 2 L of oxygen at baseline, diastolic heart failure, peripheral vascular disease, A-fib, chronic back pain with intrathecal full Dilaudid pump. She was admitted here at the end of September for cellulitis of the right hand. She has a chronic wound on the left lower extremity that has a history of Pseudomonas. She does go see wound care for that. According to the nurse practitioner notes it also grew MRSA but I do not see any record of that in our EMR. She went to the clinic yesterday and had labs done and was sent here because her white count was 21,000 with concern for active infection. Meds/Allgy Home Medications Ambulatory Orders Medication Instructions Recorded Confirmed atorvastatin 20 mg tablet (Lipitor) 20 mg PO QPM 06/05/24 10/16/24 carvedilol 6.25 mg tablet (Coreg) 6.25 mg PO BID 06/05/24 10/16/24 dronedarone 400 mg tablet (Multaq) 400 mg PO BID 06/05/24 10/16/24 duloxetine 60 mg capsule,delayed 60 mg PO QDAY 06/05/24 10/16/24 release (Cymbalta) estradiol 0.01% (0.1 mg/gram) 0.5 - 1 g topical QWEEK 06/05/24 10/16/24 vaginal cream ferrous sulfate 142 mg (45 mg 142 mg PO QDAY 06/05/24 10/16/24 iron) tablet,extended release (Slow Fe) glycerin (adult) 1 supp [place] QDAY PRN constipation 06/05/24 10/16/24 hydromorphone (PF) 10 mg/mL 3.3 mg epidural DAILY 06/05/24 10/16/24 injection solution isosorbide mononitrate 30 mg 30 mg PO QDAY 06/05/24 10/16/24 tablet,extended release 24 hr multivitamin-ferrous 1 tab PO QDAY 06/05/24 10/16/24 fumarate-folic acid 18 mg-400 mcg tablet (One Daily Multivitamin with Iron (folic acid)) mycophenolate mofetil 500 mg 1,000 mg PO BID 06/05/24 10/16/24 tablet (CellCept) nitroglycerin 0.4 mg sublingual 0.4 mg sublingual Q5M PRN chest 06/05/24 10/16/24 tablet pain pantoprazole 40 mg tablet,delayed 40 mg PO QDAY 06/05/24 10/16/24 release valacyclovir 500 mg tablet 500 mg PO QDAY #90 tabs 06/06/24 10/16/24 magnesium 250 mg tablet 250 mg PO BID #30 tabs 08/03/24 10/16/24 clobetasol 0.05 % topical ointment See Rx Instructions .Route 08/10/24 10/16/24 .COMPLEX #60 grams prednisone 5 mg tablet 5 mg PO DAILY 08/10/24 10/16/24 ondansetron 4 mg disintegrating 4 mg PO Q8H PRN nausea and 08/30/24 10/16/24 tablet vomiting #60 tabs apixaban 2.5 mg tablet (Eliquis) 2.5 mg PO BID 10/05/24 10/16/24 nystatin 100,000 unit/mL oral 1 ml buccal DAILY thrush #60 mL 10/10/24 10/16/24 suspension acetaminophen 500 mg capsule 500 mg PO Q4H PRN pain 10/16/24 10/16/24 furosemide 20 mg tablet 20 mg PO DAILY PRN edema 10/16/24 10/16/24 nystatin 100,000 unit/gram topical 1 applic topical BID PRN infection 10/16/24 10/16/24 powder potassium chloride 10 mEq 10 meq PO BID 10/16/24 10/16/24 tablet,extended release Allergies Allergies Allergy/AdvReac Type Severity Reaction Status Date / Time iodine Allergy Severe Rash Verified 10/05/24 04:05 isoniazid Allergy Severe Rash Verified 10/05/24 04:05 zolpidem (From Ambien) Allergy Severe Hallucinati Verified 10/05/24 04:05 ons adhesive tape Allergy Intermediate Rash Verified 09/05/24 15:32 artichoke Allergy Unknown Verified 10/05/24 04:05 pregabalin (From Lyrica) Allergy muscle Verified 10/05/24 04:05 spasms NSAIDS (Non-Steroidal AdvReac Intermediate abd pain Verified 10/05/24 04:05 Anti-Inflamma cantaloupe AdvReac Mild abdomen Verified 10/05/24 04:05 swells, makes her miserable. amitriptyline AdvReac Hallucinati Verified 09/05/24 15:32 ons fentanyl AdvReac Hallucinati Verified 10/05/24 04:05 ons gabapentin AdvReac Hallucinati Verified 10/05/24 04:05 ons PFSH Active Problems All Active Problems (Updated 10/16/24 @ 15:16 by Estrella Gates MD) Acute hypokalemia (Acute) Sepsis (Acute) Leg wound, left (Acute) Pulmonary fibrosis (Acute) PVD (peripheral vascular disease) (Acute 11/03/21) GERD (gastroesophageal reflux disease) (Acute 04/26/11) Hyperlipidemia (Acute 03/08/16) Interstitial pulmonary fibrosis (Acute 07/01/14) Diastolic heart failure (Acute 12/22/21) Atrial fibrillation (Acute) Direct infection of unspecified joint in infectious and parasitic diseases classified elsewhere (Acute) Tenosynovitis of hand (Acute) Dysphagia (Acute) Irritable bowel syndrome (Acute) Abdominal hernia (Acute 06/15/23) MRSA infection (Acute) Pain in right leg (Acute) Lipodermatosclerosis of right lower extremity (Acute) Long-term use of immunosuppressant medication (Acute) long-term (current) use of systemic steroids (Acute) Pleuritic chest pain (Acute) Cellulitis of left lower limb (Acute) Foot pain, left (Acute) Pseudomonas aeruginosa infection (Chronic) Non-pressure chronic ulcer of other part of left lower leg with fat layer exposed (Chronic) Venous insufficiency (chronic) (peripheral) (Chronic) Presence of pessary (Chronic) Fibromyalgia (Chronic 12/22/21) CAD (coronary artery disease) (Chronic 12/22/21) Lung nodule, solitary (Chronic 10/12/16) Sciatica, left side (Chronic 10/20/15) Risk for falls (Chronic 01/04/23) Depression with anxiety (Chronic 09/20/23) Female cystocele (Chronic 04/27/23) COPD (chronic obstructive pulmonary disease) (Chronic 11/12/20) Pain of both hip joints (Chronic 06/21/22) Venous stasis dermatitis (Chronic 09/20/19) Umbilical hernia (Chronic 07/07/23) Spinal stenosis (Chronic 03/05/13) Spastic bladder (Chronic 09/05/19) Pulmonary hypertension (Chronic 12/22/21) Periodic limb movement disorder (Chronic 03/01/17) Pelvic floor instability (Chronic 09/13/23) Osteoporosis (Chronic 10/12/17) Neck pain, chronic (Chronic 08/16/22) Nausea and vomiting (Chronic 01/03/13) Lower extremity weakness (Chronic 12/27/17) Low back pain (Chronic 09/12/19) Insomnia (Chronic 06/30/20) Incontinence (Chronic 09/15/11) Fatigue (Chronic 07/03/12) Failed back syndrome (Chronic 12/22/21) Constipation, chronic (Chronic 09/13/23) Chronic pain syndrome (Chronic 01/05/11) Cardiomyopathy (Chronic 12/22/21) Bronchiectasis (Chronic 01/27/23) Dysrhythmia (Chronic) Iron deficiency anemia (Chronic) Weakness (Chronic) Medical History Medical History Cellulitis of right hand Sep 2024 Mixed connective tissue disease Thyroid nodule (07/03/12) never heard that she had this Recurrent UTI (urinary tract infection) (08/16/22) Obstructive sleep apnea (10/22/16) better now. Gastroparesis Anxiety disorder Surgical History Surgical History S/P insertion of intrathecal pump S/P insertion of spinal cord stimulator History of carpal tunnel surgery of left wrist H/O shoulder surgery History of lung biopsy Status post creation of pericardial window History of hysterectomy History of cholecystectomy History of tonsillectomy History of total bilateral knee replacement Family History Family History Father Diabetes Heart disease Hyperlipidemia High blood pressure Heart attack H/O angina pectoris Arthritis Grandmother No problems noted. Mother Heart disease Hyperlipidemia Anemia Arthritis CVA (cerebral vascular accident) Social History Social History Smoking Status: Former smoker If you are a former smoker, when did you quit? (Date/Year): 03/09/1976 Number of Years Smoked: 7 How many cigarettes a day do you smoke? (20 cigarettes=1 Pk): 20 Do you dip or chew tobacco?: No Do you vape?: No Patient requests smoking cessation consult: No Initiate information on smoking cessation: No Living arrangement: At home Living Condition: With spouse/s.o. Relationship: Level: Dependent Home Mobility Equipment: Cane and Wheelchair Do you feel safe in your home environment?: Yes Suffered physical, verbal, emotional, or financial abuse?: No History of Abuse: No ETOH Use: None Substance Use: denies use POLST Patient has POLST: No POLST Status: Full Code Results Vitals Vitals: Vital Signs - 24 hr 10/16/24 11:41 10/16/24 12:03 10/16/24 14:00 Temperature 36.8 C 36.9 C Temperature Source Oral Temporal Artery Scan Pulse Rate 84 79 79 Respiratory Rate 16 18 20 Blood Pressure 170/94 H 124/69 123/68 O2 Saturation 98 97 99 O2 Source Nasal cannula Room air Nasal cannula If not protocol: Oxygen Flow, liters/minute 2 1 Pain Intensity 6 5 Oxygen O2 Source Nasal cannula Labs Labs: Microbiology 10/16/24 14:10 Wound Culture - Preliminary Leg - Left Laboratory Tests 10/16/24 10/16/24 12:18 12:31 WBC 18.1 H RBC 3.48 L Hgb 11.4 L Hct 36.4 L MCV 104.6 H MCH 32.8 H MCHC 31.3 L RDW 15.0 Plt Count 287 MPV 10.2 Neut # (Auto) Not Reportable Lymph # (Auto) Not Reportable [place] # (Auto) Not Reportable Eos # (Auto) Not Reportable Baso # (Auto) Not Reportable Absolute Nucleated RBC Not Reportable Total Counted 100 Band Neuts % (Manual) 7 Reactive Lymphs % (Man) 8 Abnorm Lymph % (Manual) 0 Metamyelocytes % 1 H Myelocytes % 1 H Nucleated RBC % Not Reportable Neutrophils # (Manual) 14.1 H Lymphocytes # (Manual) 3.3 Monocytes # (Manual) 0.2 Eosinophils # (Manual) 0.2 Basophils # (Manual) 0.0 Differential Comment MANUAL DIFFERENTIAL RBC Morph Micro Appear 2+ ANISOCYTOSIS ESR 16 Sodium 134 L Potassium 4.6 H Chloride 98 L Carbon Dioxide 33 H Anion Gap 3.0 L BUN 28 H Creatinine 0.6 Estimated GFR (MDRD) 97 Glucose 281 H Lactic Acid 1.4 Calcium 9.6 Total Bilirubin 0.4 AST 19 ALT 28 Alkaline Phosphatase 82 C-Reactive Protein < 0.5 Total Protein 6.1 L Albumin 3.4 Globulin 2.7 Albumin/Globulin Ratio 1.3 PD Medical Decision Making ED course Complexity details: reviewed old records and reviewed results ED course: This is a 78-year-old woman with history of pulmonary fibrosis on 2 L of oxygen at baseline, diastolic heart failure, peripheral vascular disease, A-fib, chronic back pain with intrathecal full Dilaudid pump. She was admitted here at the end of September for cellulitis of the right hand. She has a chronic wound on the left lower extremity that has a history of Pseudomonas. She does go see wound care for that. According to the nurse practitioner notes it also grew MRSA but I do not see any record of that in our EMR. She went to the clinic yesterday and had labs done and was sent here because her white count was 21,000 with concern for active infection. Labs show significant leukocytosis, CMP shows no significant MARLON. X-ray of left leg shows no sign of osteoporosis. ESR is normal IV antibiotics ordered here in the EDiscussed with hospitalist Dr. Baker who is agreeable with admission at this time. Discharge Plan Discharge Patient Disposition: [facility] DC/Xfer Condition: Good Clinical Impression: Leg wound, left, Acute hypokalemia Sepsis Qualifiers: Sepsis type: sepsis due to unspecified organism Sepsis acute organ dysfunction status: without acute organ dysfunction Qualified Code(s): A41.9 - Sepsis, unspecified organism Interventions: ED Admission Assessment Last Done: 10/16/24 15:47
[2024-10-16 12:36] LABS: BASOPHILS % (AUTO) 0.5 %; EOSINOPHILS % (AUTO) 0.1 %; HCT - HEMATOCRIT 36.4 % (37.0-47.0); HGB - HEMOGLOBIN 11.4 g/dL (12.0-16.0); MEAN CORPUSCULAR HEMOGLOBIN 32.8 pg (27.0-31.0); MEAN CORPUSCULAR HGB CONC 31.3 g/dL (32.0-36.0); MEAN CORPUSCULAR VOLUME 104.6 fL (81.0-99.0); MEAN PLATELET VOLUME 10.2 fL (7.9-10.8); NEUTROPHILS % (AUTO) 76.2 %; PLT - PLATELET COUNT 287 10^3/uL (130-450); RED BLOOD COUNT 3.48 10^6/uL (4.20-5.40); WHITE BLOOD COUNT 18.1 x10^3/uL (4.8-10.8)
--- NOTE | 2024-10-16 12:37 | XRAY Report ---
PROCEDURE: XR Foot 3+V LT INDICATIONS: left foot wound, with previous fracture TECHNIQUE: 3 views of the foot were acquired. COMPARISON: None. FINDINGS: Bones: No fractures or dislocations. No suspicious bony lesions. Diffuse IP degenerative change. T here is an overall appearance of decreased bone mineral density loss. Appearance of fracture appearin g at least subacute/late subacute at the distal aspect of the first proximal phalanx. Subacute appear ance of fracture at the proximal fifth phalanx is also present. Soft tissues: No tibiotalar joint effusion. Achilles tendon appears normal. Mild first digit soft tissue edema. IMPRESSION: Subacute appearance of fractures at the first and fifth proximal phalanx fractures as above. Mild first digit soft tissue edema. No underlying erosions. Reviewed by: Cathy Orozco MD on 10/16/2024 12:35 PM PDT Approved by: Cathy Orozco MD on 10/16/2024 12:35 PM PDT Station ID: [id number]
--- NOTE | 2024-10-16 12:39 | XRAY Report ---
PROCEDURE: XR Tib/Fib LT INDICATIONS: left leg wound TECHNIQUE: 2 views of the tibia and fibula were acquired. COMPARISON: X-ray foot 07/26/2024 FINDINGS: Bones: No fractures or dislocations. No suspicious bony lesions. Knee arthroplasty. Hardware is i ntact without evidence of hardware fracture or periprosthetic lucency to suggest loosening. Calcaneal spur. Soft tissues: No suspicious soft tissue calcifications or masses. Soft tissue defect is present po sterior to the calcaneus. IMPRESSION: Soft tissue defect posterior to the calcaneus without underlying osseous erosion. Reviewed by: Cathy Orozco MD on 10/16/2024 12:38 PM PDT Approved by: Cathy Orozco MD on 10/16/2024 12:38 PM PDT Station ID: [id number]
[2024-10-16 12:48] LABS: ALBUMIN 3.4 g/dL (3.2-5.5); ALBUMIN/GLOBULIN RATIO 1.3 (1.0-2.2); ALKALINE PHOSPHATASE 82 IU/L (42-121); ALT ALANINE AMINOTRANSFERASE 28 IU/L (10-60); AST ASPARTATE AMINOTRANSFERASE 19 IU/L (10-42); BILIRUBIN,TOTAL 0.4 mg/dL (0.2-1.0); BUN - BLOOD UREA NITROGEN 28 mg/dL (6-20); CALCIUM 9.6 mg/dL (8.5-10.3); CARBON DIOXIDE - CO2 33 mmol/L (21-32); CHLORIDE 98 mmol/L (101-111); CREATININE 0.6 mg/dL (0.6-1.3); CRP - C-REACTIVE PROTEIN < 0.5 mg/dL (<0.5); GFR - MDRD 97 (>89); GLUCOSE 281 mg/dL (74-104); POTASSIUM 4.6 mmol/L (3.5-4.5); SODIUM 134 mmol/L (135-145); TOTAL PROTEIN 6.1 g/dL (6.4-8.9)
[2024-10-16 12:52] LABS: ABNORMAL LYMPHS % (MANUAL) 0 %
[2024-10-16 12:58] LABS: BAND NEUTROPHILS % (MANUAL) 7 %; EOSINOPHILS # (MANUAL) 0.2 10^3/uL (0-0.7); LYMPHOCYTES # (MANUAL) 3.3 10^3/uL (1.5-3.5); LYMPHOCYTES % (MANUAL) 10 %; METAMYELOCYTES % (MANUAL) 1 %; MONOCYTES # (MANUAL) 0.2 10^3/uL (0.0-1.0); MYELOCYTES % (MANUAL) 1 %; NEUTROPHILS # (MANUAL) 14.1 10^3/uL (1.5-6.6); RBC MORPHOLOGY (MULTIPLE) 2+ ANISOCYTOSIS (NORMAL); REACTIVE LYMPHS % (MANUAL) 8 %
[2024-10-16 12:59] LABS: DIFFERENTIAL COMMENT MANUAL DIFFERENTIAL
[2024-10-16] MEDS: CEFEPIME 2 GM VIAL IVP STA (14:02)
[2024-10-16] MEDS: VANCOMYCIN INJ 1 GM, VANCOMYCIN INJ 500 MG in SODIUM CHLORIDE 0.9% 500 ML IV STA (14:41)
--- NOTE | 2024-10-16 15:06 | HISTORY & PHYSICAL EXAMINATION ---
Chief Complaint Chief Complaint Chief Complaint: "High white count at PCP's office, fatigue, tiredness" History of Present Illness History Obtained From Records Reviewed: EMR History obtained from: Patient Exam Limitations: None History of Present Illness HPI Comment/Other: Patient is a 78-year-old female with a history of diastolic heart failure, venous insufficiency with chronic wounds of the left lower extremity including Pseudomonas, interstitial lung disease on 2 L at baseline who presents due to high white count. She saw her primary care provider, Melba Gallagher, yesterday. It was primarily for the nonhealing venous stasis ulcers of the left lower extremity. The wound has continued to increase in size. Biopsy shows lipodermatosclerosis. Labs were drawn and leukocytosis was noted. Since discharge last week, she has been feeling increasingly fatigued. Patient was admitted from 10/05 to 10/10 for right hand cellulitis. She had appropriate response to IV antibiotics, and was transition to orals. She was followed by orthopedics while inpatient without need for surgical intervention. Her leukocytosis resolved. All her chronic conditions were stable at that time. She was discharged home with home PT/OT. Patient lives at home with her . She is usually wheelchair-bound due to her numerous back surgeries. She occasionally uses a walker and cane. 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 Meds/Allgy Home Medications Ambulatory Orders Medication Instructions Recorded Confirmed inulin 2 gram chewable tablet 4 g PO QDAY 05/22/24 10/15/24 (Fiber Gummies) prazosin 1 mg capsule 1 mg PO QPM 05/22/24 10/15/24 vitamin B complex 2 tab PO QDAY 05/22/24 10/15/24 acetaminophen 325 mg tablet 325 - 650 mg PO QDAY PRN pain 06/05/24 10/15/24 ascorbic acid (vitamin C) 500 mg 500 mg PO QDAY 06/05/24 10/15/24 tablet aspirin 81 mg tablet,delayed 162 mg PO QDAY 06/05/24 10/15/24 release atorvastatin 20 mg tablet (Lipitor) 20 mg PO QPM 06/05/24 10/15/24 calcium 200 mg (as 1 tab PO QDAY 06/05/24 10/15/24 citrate)-vitamin D3 6.25 mcg (250 unit) tablet (Citracal-D3 Petites) carvedilol 6.25 mg tablet (Coreg) 6.25 mg PO BID 06/05/24 10/15/24 cholecalciferol (vitamin D3) 25 25 mcg PO QDAY 06/05/24 10/15/24 mcg (1,000 unit) tablet dronedarone 400 mg tablet (Multaq) 400 mg PO BID 06/05/24 10/15/24 duloxetine 60 mg capsule,delayed 60 mg PO QDAY 06/05/24 10/15/24 release (Cymbalta) estradiol 0.01% (0.1 mg/gram) 0.5 - 1 g topical QWEEK 06/05/24 10/15/24 vaginal cream ferrous sulfate 142 mg (45 mg 142 mg PO QDAY 06/05/24 10/15/24 iron) tablet,extended release (Slow Fe) glycerin (adult) 1 supp MD QDAY PRN constipation 06/05/24 10/15/24 hydromorphone (PF) 10 mg/mL 3.3 mg epidural DAILY 06/05/24 10/15/24 injection solution isosorbide mononitrate 30 mg 30 mg PO QDAY 06/05/24 10/15/24 tablet,extended release 24 hr multivitamin-ferrous 1 tab PO QDAY 06/05/24 10/15/24 fumarate-folic acid 18 mg-400 mcg tablet (One Daily Multivitamin with Iron (folic acid)) mycophenolate mofetil 500 mg 1,000 mg PO BID 06/05/24 10/15/24 tablet (CellCept) nitroglycerin 0.4 mg sublingual 0.4 mg sublingual Q5M PRN chest 06/05/24 10/15/24 tablet pain pantoprazole 40 mg tablet,delayed 40 mg PO QDAY 06/05/24 10/15/24 release valacyclovir 500 mg tablet 500 mg PO QDAY #90 tabs 06/06/24 10/15/24 nystatin 100,000 unit/gram topical 1 applic topical BID #60 grams 06/26/24 10/15/24 powder magnesium 250 mg tablet 250 mg PO BID #30 tabs 08/03/24 10/15/24 clobetasol 0.05 % topical ointment See Rx Instructions .Route 08/10/24 10/15/24 .COMPLEX #60 grams prednisone 5 mg tablet 5 mg PO DAILY 08/10/24 10/15/24 ondansetron 4 mg disintegrating 4 mg PO Q8H PRN nausea and 08/30/24 10/15/24 tablet vomiting #60 tabs furosemide 20 mg tablet 20 mg PO DAILY #30 tabs 08/31/24 10/15/24 apixaban 2.5 mg tablet (Eliquis) 2.5 mg PO BID 10/05/24 10/15/24 mupirocin 2 % topical ointment 1 applic topical BID 10/05/24 10/15/24 cephalexin 500 mg capsule 500 mg PO TID #11 caplets 10/10/24 10/15/24 nystatin 100,000 unit/mL oral 1 ml buccal BID #60 mL 10/10/24 10/15/24 suspension nystatin 100,000 unit/mL oral 1 ml buccal DAILY thrush #60 mL 10/10/24 10/15/24 suspension potassium chloride 10 mEq 10 meq PO BID 10/16/24 tablet,extended release Allergies Allergies Allergy/AdvReac Type Severity Reaction Status Date / Time iodine Allergy Severe Rash Verified 10/05/24 04:05 isoniazid Allergy Severe Rash Verified 10/05/24 04:05 zolpidem (From Ambien) Allergy Severe Hallucinati Verified 10/05/24 04:05 ons adhesive tape Allergy Intermediate Rash Verified 09/05/24 15:32 artichoke Allergy Unknown Verified 10/05/24 04:05 pregabalin (From Lyrica) Allergy muscle Verified 10/05/24 04:05 spasms NSAIDS (Non-Steroidal AdvReac Intermediate abd pain Verified 10/05/24 04:05 Anti-Inflamma cantaloupe AdvReac Mild abdomen Verified 10/05/24 04:05 swells, makes her miserable. amitriptyline AdvReac Hallucinati Verified 09/05/24 15:32 ons fentanyl AdvReac Hallucinati Verified 10/05/24 04:05 ons gabapentin AdvReac Hallucinati Verified 10/05/24 04:05 ons PFSH Active Problems All Active Problems (Updated 10/16/24 @ 15:16 by Estrella Gates MD) Acute hypokalemia (Acute) Sepsis (Acute) Leg wound, left (Acute) Pulmonary fibrosis (Acute) PVD (peripheral vascular disease) (Acute 11/03/21) GERD (gastroesophageal reflux disease) (Acute 04/26/11) Hyperlipidemia (Acute 03/08/16) Interstitial pulmonary fibrosis (Acute 07/01/14) Diastolic heart failure (Acute 12/22/21) Atrial fibrillation (Acute) Direct infection of unspecified joint in infectious and parasitic diseases classified elsewhere (Acute) Tenosynovitis of hand (Acute) Dysphagia (Acute) Irritable bowel syndrome (Acute) Abdominal hernia (Acute 06/15/23) MRSA infection (Acute) Pain in right leg (Acute) Lipodermatosclerosis of right lower extremity (Acute) Long-term use of immunosuppressant medication (Acute) 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 (Acute) Pleuritic chest pain (Acute) Cellulitis of left lower limb (Acute) Foot pain, left (Acute) Pseudomonas aeruginosa infection (Chronic) Non-pressure chronic ulcer of other part of left lower leg with fat layer exposed (Chronic) Venous insufficiency (chronic) (peripheral) (Chronic) Presence of pessary (Chronic) Fibromyalgia (Chronic 12/22/21) CAD (coronary artery disease) (Chronic 12/22/21) Lung nodule, solitary (Chronic 10/12/16) Sciatica, left side (Chronic 10/20/15) Risk for falls (Chronic 01/04/23) Depression with anxiety (Chronic 09/20/23) Female cystocele (Chronic 04/27/23) COPD (chronic obstructive pulmonary disease) (Chronic 11/12/20) Pain of both hip joints (Chronic 06/21/22) Venous stasis dermatitis (Chronic 09/20/19) Umbilical hernia (Chronic 07/07/23) Spinal stenosis (Chronic 03/05/13) Spastic bladder (Chronic 09/05/19) Pulmonary hypertension (Chronic 12/22/21) Periodic limb movement disorder (Chronic 03/01/17) Pelvic floor instability (Chronic 09/13/23) Osteoporosis (Chronic 10/12/17) Neck pain, chronic (Chronic 08/16/22) Nausea and vomiting (Chronic 01/03/13) Lower extremity weakness (Chronic 12/27/17) Low back pain (Chronic 09/12/19) Insomnia (Chronic 06/30/20) Incontinence (Chronic 09/15/11) Fatigue (Chronic 07/03/12) Failed back syndrome (Chronic 12/22/21) Constipation, chronic (Chronic 09/13/23) Chronic pain syndrome (Chronic 01/05/11) Cardiomyopathy (Chronic 12/22/21) Bronchiectasis (Chronic 01/27/23) Dysrhythmia (Chronic) Iron deficiency anemia (Chronic) Weakness (Chronic) Medical History Medical History Cellulitis of right hand Sep 2024 Mixed connective tissue disease Thyroid nodule (07/03/12) never heard that she had this Recurrent UTI (urinary tract infection) (08/16/22) Obstructive sleep apnea (10/22/16) better now. Gastroparesis Anxiety disorder Surgical History Surgical History S/P insertion of intrathecal pump S/P insertion of spinal cord stimulator History of carpal tunnel surgery of left wrist H/O shoulder surgery History of lung biopsy Status post creation of pericardial window History of hysterectomy History of cholecystectomy History of tonsillectomy History of total bilateral knee replacement Family History Family History Father Diabetes Heart disease Hyperlipidemia High blood pressure Heart attack H/O angina pectoris Arthritis Grandmother No problems noted. Mother Heart disease Hyperlipidemia Anemia Arthritis CVA (cerebral vascular accident) Social History Social History Smoking Status: Former smoker If you are a former smoker, when did you quit? (Date/Year): 03/09/1976 Number of Years Smoked: 7 How many cigarettes a day do you smoke? (20 cigarettes=1 Pk): 20 Do you dip or chew tobacco?: No Do you vape?: No Patient requests smoking cessation consult: No Initiate information on smoking cessation: No Living arrangement: At home Living Condition: With spouse/s.o. Relationship: Level: Dependent Home Mobility Equipment: Cane and Wheelchair Do you feel safe in your home environment?: Yes Suffered physical, verbal, emotional, or financial abuse?: No History of Abuse: No ETOH Use: None Substance Use: denies use POLST Patient has POLST: No POLST Status: Full Code Review of Systems Constitutional Reports: Fatigue, Malaise and Weakness; Denies: Fever, Chills, Diaphoresis or Night sweats Eyes Denies: Pain, Irritation, Blurry vision, Floaters, Field loss or Vision loss Ears, nose, mouth, and throat Denies: Ear pain, Ear discharge, Hearing loss, Neck pain or Throat swelling Cardiovascular Reports: Irregular heart rate, swelling of feet/ankles and shortness of breath with exertion; Denies: chest pain, palpitations, edema, Syncope or lightheadedness Respiratory Reports: Shortness of breath; Denies: Cough, Sputum production, Change in phlegm color or Wheezing Gastrointestinal Denies: Abdominal pain, Abdominal distention, Nausea, Vomiting or Poor appetite Genitourinary Denies: Painful urination, Urinary frequency, Urinary urgency, Nocturia or Urinary incontinence Musculoskeletal Reports: Back pain; Denies: Neck pain, Extremity pain, Extremity swelling, Gout or Joint pain Integumentary/Breast Reports: Rash, Dryness, Redness, Skin pain, Skin tenderness and Skin swelling; Denies: Itching, Sores or New lesion Neurological Reports: General weakness; Denies: Headache, Focal weakness, Weakness in extremities, Numbness in extremities or Abnormal gait Psychiatric Denies: Depression, Anxiety, Mood swings, Panic attacks, Change in sleep pattern or Hopelessness Endocrine Reports: Fatigue; Denies: Excessive urination, Excessive thirst or Polyphagia Hematologic/Lymphatic Denies: Anemia, Easy bruising, Petechiae or Easy bleeding Allergic/Immunologic Denies: Hives, Throat swelling, Tongue swelling, Facial swelling or Wheezing Prior Level of Functionality: Lives with . Uses walker/cane/wheelchair (mostly wheelchair at baseline). Exam Constitutional abnormal general appearance (frail appearing), no apparent distress, average body habitus, no limitations and alert HENMT normocephalic, head/scalp atraumatic and hearing grossly normal bilaterally Eyes PERRL, EOMs intact bilaterally and conjunctivae normal Neck/C-Spine visual inspection normal and trachea midline Chest inspection of chest normal and palpation of chest normal Respiratory breath sounds equal bilaterally, normal respiratory effort, clear to auscultation bilaterally, no wheezes, no rales and no retractions Cardiovascular normal heart rate noted, rhythm abnormal (irregular), no gallop, no rub and no murmur Gastrointestinal abdomen normal to inspection, abdomen soft to palpation, nontender to palpation, nontender to percussion and nondistended Genitourinary no CVA tenderness and bladder normal to palpation Extremities normal to inspection, normal to palpation and tenderness noted (tenderness of LLE - wounds noted with some active purulence noted) Neurology no movement abnormality noted, no focal motor deficit noted and speech normal Psychiatry mental status grossly normal, oriented x3, thought process normal and cooperative Skin LLE with extensive ulceration with white granulation tissue noted; some erythema around wounds. Sepsis Event Note (H) Evaluation Current Stage of Sepsis: Sepsis Possible source of Sepsis: positive Skin/soft tissue Sepsis Criteria Sepsis Criteria: Recorded Temperature greater than 38.3C or Less than 36C, WBC count greater than 10% bands and WBC count greater than 12,000 or less than 4000 Conclusion/Plan Problem List (1) Sepsis: Plan: Patient with worsening leukocytosis, febrile at home. Source of wound is left lower extremity chronic wound. Continue cefepime and vancomycin at this time. Will monitor for drug toxicity with vancomycin trough levels. ESR and CRP within normal limits. Less concern for osteomyelitis at this time. Will attempt to reach out to patient's wound care doctor, Dr. Thomas, for further assistance. Qualifiers: Sepsis acute organ dysfunction status: without acute organ dysfunction Sepsis type: sepsis due to unspecified organism Qualified Code(s): A41.9 - Sepsis, unspecified organism (2) Leukocytosis: Plan: Management as above. Blood cultures ordered, pending. Qualifiers: Leukocytosis type: unspecified Qualified Code(s): D72.829 - Elevated white blood cell count, unspecified (3) Acute hypokalemia: Plan: Repleted, continue to trend. (4) Atrial fibrillation with controlled ventricular rate: Plan: Patient is not on any rate control medications at this time. Recently started on Eliquis approximately 10 days ago by pattern assembler, his notes were reviewed. Continued inpatient. Will hold if plans for surgical procedure. (5) PVD (peripheral vascular disease): Plan: Chronic condition, stable. Chronic wounds of left lower extremity. Outpatient wound care doctor is considering skin grafts. (6) GERD (gastroesophageal reflux disease): Plan: Continue Protonix. Qualifiers: Esophagitis presence: without esophagitis Qualified Code(s): K21.9 - Gastro-esophageal reflux disease without esophagitis (7) Hyperlipidemia: Plan: Continue statin. Qualifiers: Hyperlipidemia type: unspecified Qualified Code(s): E78.5 - Hyperlipidemia, unspecified (8) Interstitial pulmonary fibrosis: Plan: Chronic. On 2L of oxygen at home, continue at this time. Has history of pulmonary hypertension with this. Was on CellCept previously, currently held as she gets worked up for her left lower extremity ulcers. On a prednisone taper; continue at this time. (9) Diastolic heart failure: Plan: Compensated at this time. Continue Lasix. Qualifiers: Heart failure chronicity: chronic Qualified Code(s): I50.32 - Chronic diastolic (congestive) heart failure (10) Mixed connective tissue disease: Plan: Patient has been on immunosuppresants in the past. Stable. Continue to monitor. Lab Results Lab results reviewed: Yes 10/16/24 12:31 10/16/24 12:18 Diagnostic Imaging Results Diagnostic Imaging Results: positive Final report reviewed and Read independently Core Measures Anticipated LOS I expect patient to be DC'd or transferred within 96 hours.: Yes Issues Hospital Issues and Management Plan: None anticipated. DVT/VTE - Prophylaxis VTE/DVT Device ordered at admit?: Yes VTE/DVT Prophylaxis med ordered at admit?: Yes
[2024-10-16] MEDS ORDERED: CALCIUM CITRATE VITAMIN D3 PO SCH (15:49)
[2024-10-16] MEDS ORDERED: CLOBETASOL 0.05% OINT 15 GM TUBE TOP SCH (15:49)
[2024-10-16] MEDS ORDERED: ONDANSETRON ODT 4 MG TABLET TL PRN (15:49)
[2024-10-16] MEDS ORDERED: ACETAMINOPHEN 325 MG TABLET PO PRN (15:49)
[2024-10-16] MEDS ORDERED: NITROGLYCERIN SL 0.4 MG TABLET SL PRN (15:49)
[2024-10-16] MEDS ORDERED: VITAMIN B COMPLEX PO SCH (15:49)
[2024-10-16] MEDS ORDERED: SODIUM CHLORIDE FLUSH 0.9% 10 ML SYRINGE IVP PRN (15:49)
[2024-10-16] MEDS: ASCORBIC ACID 500 MG TABLET PO SCH (16:36)
[2024-10-16] MEDS: DULoxetine 60 MG CAPSULE PO SCH (16:36)
[2024-10-16] MEDS: CHOLECALCIFEROL 25 MCG TABLET PO SCH (16:36)
[2024-10-16] MEDS: PANTOPRAZOLE 40 MG TABLET PO SCH (16:37)
[2024-10-16] MEDS: ISOSORBIDE MONONITRATE ER 30 MG TABLET PO SCH (16:37)
[2024-10-16] MEDS: valACYclovir 500 MG TABLET PO SCH (16:37)
[2024-10-16] MEDS: POTASSIUM CHLORIDE 20 MEQ TABLET PO ONE (16:37)
[2024-10-16] MEDS: ASPIRIN EC 81 MG TABLET PO SCH (16:38)
[2024-10-16] MEDS: CEFEPIME 2 GM VIAL IVP SCH ×2 (17:14→21:40)
--- NOTE | 2024-10-16 17:32 | PHARMACY PROGRESS NOTE ---
Best Possible Medication History Admit Date and Time: 10/16/24 1452 Home Medications Medication Instructions Recorded Confirmed Type atorvastatin 20 mg tablet (Lipitor) 20 mg PO QPM 06/05/24 10/16/24 History carvedilol 6.25 mg tablet (Coreg) 6.25 mg PO BID 06/05/24 10/16/24 History dronedarone 400 mg tablet (Multaq) 400 mg PO BID 06/05/24 10/16/24 History duloxetine 60 mg capsule,delayed 60 mg PO QDAY 06/05/24 10/16/24 History release (Cymbalta) estradiol 0.01% (0.1 mg/gram) 0.5 - 1 g topical QWEEK 06/05/24 10/16/24 History vaginal cream ferrous sulfate 142 mg (45 mg 142 mg PO QDAY 06/05/24 10/16/24 History iron) tablet,extended release (Slow Fe) glycerin (adult) 1 supp [place] QDAY PRN constipation 06/05/24 10/16/24 History hydromorphone (PF) 10 mg/mL 3.3 mg epidural DAILY 06/05/24 10/16/24 History injection solution isosorbide mononitrate 30 mg 30 mg PO QDAY 06/05/24 10/16/24 History tablet,extended release 24 hr multivitamin-ferrous 1 tab PO QDAY 06/05/24 10/16/24 History fumarate-folic acid 18 mg-400 mcg tablet (One Daily Multivitamin with Iron (folic acid)) mycophenolate mofetil 500 mg 1,000 mg PO BID 06/05/24 10/16/24 History tablet (CellCept) nitroglycerin 0.4 mg sublingual 0.4 mg sublingual Q5M PRN chest 06/05/24 5 History tablet pain pantoprazole 40 mg tablet,delayed 40 mg PO QDAY 06/05/24 10/16/24 History release valacyclovir 500 mg tablet 500 mg PO QDAY #90 tabs 06/06/24 10/16/24 Rx magnesium 250 mg tablet 250 mg PO BID #30 tabs 08/03/24 10/16/24 Rx clobetasol 0.05 % topical ointment See Rx Instructions .Route 08/10/24 10/16/24 Rx .COMPLEX #60 grams prednisone 5 mg tablet 5 mg PO DAILY 08/10/24 10/16/24 History ondansetron 4 mg disintegrating 4 mg PO Q8H PRN nausea and 08/30/24 10/16/24 Rx tablet vomiting #60 tabs apixaban 2.5 mg tablet (Eliquis) 2.5 mg PO BID 10/05/24 10/16/24 History nystatin 100,000 unit/mL oral 1 ml buccal DAILY thrush #60 mL 10/10/24 10/16/24 Rx suspension acetaminophen 500 mg capsule 500 mg PO Q4H PRN pain 10/16/24 10/16/24 History furosemide 20 mg tablet 20 mg PO DAILY PRN edema 10/16/24 10/16/24 History nystatin 100,000 unit/gram topical 1 applic topical BID PRN infection 10/16/24 10/16/24 History powder potassium chloride 10 mEq 10 meq PO BID 10/16/24 10/16/24 History tablet,extended release Processed by: Pharmacy (Medication Reconciliation completed by Deputy Sheriff LieutenantVicki) Medications reviewed in ED?: No Medication History completed: Yes Patient Interview: Completed Secondary Source(s): Insurance records [place] Statement: As the person ultimately responsible for medication therapy, providers are able to order a medication from an existing home medication list in [facility] via the "Reconcile Routine" prior to Confirmation of that medication by office support clerk. Such practice is discouraged except when the physician, in their clinical judgment, deems that a medical need exists for a medication without regard to previous use.
--- NOTE | 2024-10-16 17:41 | PHARMACY PROGRESS NOTE ---
Vancomycin Therapy Monitoring Patient Information Concurrent Antibiotics: CEFEPIME Vancomycin Therapy Goals Treatment Indication: PURULENT CELLULITIS Vancomycin Target Range: Vancomycin AUC Target Range 400-600 mcg*h/ml Plan: Vancomycin Loading Dose (GM, if applicable): [id number] Current Vancomycin Maintenance Regimen (if applicable): 1G Q12H STARTING 10/16 @ 2300 Vancomycin Level Recommendation: Vancomycin Level Recommendation (AFTER 4TH OR 5TH DOSE IF SCR STABLE. ANTICIPATED AUC 466)
[2024-10-16] MEDS: SODIUM CHLORIDE FLUSH 0.9% 10 ML SYRINGE IVP SCH (20:11)
[2024-10-16] MEDS: POTASSIUM CHLORIDE 10 MEQ CAPSULE PO SCH (21:39)
[2024-10-16] MEDS: ATORVASTATIN 10 MG TABLET PO SCH (21:39)
[2024-10-16] MEDS: carvediloL 3.125 MG TABLET PO SCH (21:39)
[2024-10-16] MEDS: APIXABAN 2.5 MG TABLET PO SCH (21:39)
[2024-10-16] MEDS: MAGNESIUM OXIDE 400 MG TABLET PO SCH (21:39)
[2024-10-16] MEDS: PRAZOSIN 1 MG CAPSULE PO SCH (21:39)
[2024-10-16] MEDS: VANCOMYCIN INJ 1 GM in SODIUM CHLORIDE 0.9% 250 ML IV SCH (23:22)
[2024-10-17 05:46] LABS: HCT - HEMATOCRIT 37.2 % (37.0-47.0); HGB - HEMOGLOBIN 11.7 g/dL (12.0-16.0); MEAN CORPUSCULAR HEMOGLOBIN 32.9 pg (27.0-31.0); MEAN CORPUSCULAR HGB CONC 31.5 g/dL (32.0-36.0); MEAN CORPUSCULAR VOLUME 104.5 fL (81.0-99.0); MEAN PLATELET VOLUME 10.1 fL (7.9-10.8); RED BLOOD COUNT 3.56 10^6/uL (4.20-5.40); RED CELL DISTRIBUTION WIDTH 15.2 % (12.0-15.0); WHITE BLOOD COUNT 15.6 x10^3/uL (4.8-10.8)
[2024-10-17 06:04] LABS: MAGNESIUM 1.9 mg/dL (1.7-2.3)
[2024-10-17 06:33] LABS: CALCIUM 9.4 mg/dL (8.5-10.3); CREATININE 0.6 mg/dL (0.6-1.3)
[2024-10-17] MEDS: HYDROcod/ACETAM 10 MG/325 MG TABLET PO PRN (07:58)
[2024-10-17] MEDS: FUROSEMIDE 20 MG TABLET PO SCH (09:34)
[2024-10-17] MEDS: CALCIUM CARB (OYSTER SHELL) 500 MG TABLET PO SCH (09:34)
[2024-10-17] MEDS: predniSONE 5 MG TABLET PO SCH (09:35)
[2024-10-17] MEDS: FERROUS SULFATE 325 MG TABLET PO SCH (09:35)
[2024-10-17] MEDS: PRENATAL VITAMIN TABLET PO SCH (09:35)
[2024-10-17] MEDS: oxyCODONE 5 MG TABLET PO PRN (11:30)
[2024-10-17] MEDS: ACETAMINOPHEN 325 MG TABLET PO PRN (11:30)
[2024-10-17] MEDS: CLOBETASOL 0.05% OINT 15 GM TUBE TOP SCH (11:33)
[2024-10-17] MEDS: NYSTATIN 500000 UNITS/5 ML UDC PO SCH (14:26)
--- NOTE | 2024-10-17 15:45 | PROVIDER PROGRESS NOTE ---
Subjective Subjective Subjective: Madelin feels about the same today. She has chronic pain over the left lower extremity, especially with movement. She denies any fevers or chills. She is interested in working with physical therapy and Occupational Therapy, is also interested in possible SNF if that is what is recommended. Current Medications Current Medications Current Medications: Current Medications Generic Name Dose Route Start Last Admin Trade Name Rico PRN Reason Stop Dose Admin Acetaminophen 650 mg 10/16/24 15:49 10/17/24 11:30 Acetaminophen 325 Mg Tablet PO 650 mg Q4HR PRN Administration Pain 1 to 4, or Fever Apixaban 2.5 mg 10/16/24 21:00 10/17/24 09:35 Apixaban 2.5 Mg Tablet PO 2.5 mg BID YONY Administration Ascorbic Acid 500 mg 10/16/24 15:49 10/17/24 09:34 Ascorbic Acid 500 Mg Tablet PO 500 mg DAILY YONY Administration Aspirin 162 mg 10/16/24 15:49 10/17/24 09:35 Aspirin Ec 81 Mg Tablet PO 162 mg DAILY YONY Administration Atorvastatin Calcium 20 mg 10/16/24 21:00 10/16/24 21:39 Atorvastatin 10 Mg Tablet PO 20 mg QPM YONY Administration Calcium Carbonate/Glycine 500 mg 10/17/24 09:00 10/17/24 09:34 Calcium Carb (Oyster Shell) 500 Mg Tablet PO 500 mg DAILY YONY Administration Carvedilol 6.25 mg 10/16/24 21:00 10/17/24 09:35 Carvedilol 3.125 Mg Tablet PO 6.25 mg BID YONY Administration Cefepime HCl 2 gm 10/16/24 22:00 10/17/24 09:34 Cefepime 2 Gm Vial IVP 2 gm Q12H YONY Administration Cholecalciferol 25 mcg 10/16/24 15:49 10/17/24 09:35 Cholecalciferol 25 Mcg Tablet PO 25 mcg DAILY YONY Administration Clobetasol Propionate 1 applic 10/17/24 12:00 10/17/24 11:33 Clobetasol 0.05% Oint 15 Gm Tube TOP 1 applic DAILY YONY Administration Duloxetine HCl 60 mg 10/16/24 15:49 10/17/24 09:34 Duloxetine 60 Mg Capsule PO 60 mg DAILY YONY Administration Ferrous Sulfate 325 mg 10/17/24 08:00 10/17/24 09:35 Ferrous Sulfate 325 Mg Tablet PO 325 mg DAILYWM YONY Administration Furosemide 20 mg 10/17/24 09:00 10/17/24 09:34 Furosemide 20 Mg Tablet PO 20 mg DAILY YONY Administration Vancomycin HCl 1 gm/ Sodium 250 mls @ 167 mls/hr 10/16/24 23:00 10/17/24 13:07 Chloride IV Infused Q12H YONY Infusion Isosorbide Mononitrate 30 mg 10/16/24 15:49 10/17/24 09:35 Isosorbide Mononitrate Er 30 Mg Tablet PO 30 mg DAILY YONY Administration Magnesium Oxide 400 mg 10/17/24 10:54 Magnesium Oxide 400 Mg Tablet PO BID YONY Nitroglycerin 0.4 mg 10/16/24 15:49 Nitroglycerin Sl 0.4 Mg Tablet SL Q5M PRN chest pain Nystatin 1 ml 10/17/24 12:00 10/17/24 14:26 Nystatin 032796 Units/5 Ml Udc PO 1 ml DAILY YONY Administration Ondansetron HCl 4 mg 10/16/24 15:49 Ondansetron Odt 4 Mg Tablet TL Q6HR PRN Nausea / Vomiting Oxycodone HCl 5 mg 10/17/24 11:11 10/17/24 11:30 Oxycodone 5 Mg Tablet PO 5 mg Q4HR PRN Administration Moderate Pain (Level 4-6) Pantoprazole Sodium 40 mg 10/16/24 15:49 10/17/24 09:35 Pantoprazole 40 Mg Tablet PO 40 mg DAILY YONY Administration Prazosin HCl 1 mg 10/16/24 21:00 10/16/24 21:39 Prazosin 1 Mg Capsule PO 1 mg QPM YONY Administration Prednisone 5 mg 10/17/24 09:00 10/17/24 09:35 Prednisone 5 Mg Tablet PO 5 mg DAILY YONY Administration Multivit/Folic Acid/Iron 1 tab 10/17/24 08:00 10/17/24 09:35 Vitamin Tablet PO 1 tab DAILYWM YONY Administration Sodium Chloride 10 ml 10/16/24 15:49 Sodium Chloride Flush 0.9% 10 Ml Syringe IVP PRN PRN NEEDED PER PROVIDER ORDERS Sodium Chloride 10 ml 10/16/24 17:00 10/17/24 09:36 Sodium Chloride Flush 0.9% 10 Ml Syringe IVP 10 ml 0100,0900,1700 YONY Administration Valacyclovir HCl 500 mg 10/16/24 15:49 10/17/24 09:39 Valacyclovir 500 Mg Tablet PO 500 mg DAILY YONY Administration Objective Vital Signs/Intake & Output Reviewed Vital Signs: Yes Vital Signs: Vital Signs x48h Temp Pulse Resp BP Pulse Ox O2 Flow Rate 10/17/24 15:39 97.9 F 89 16 118/68 96 2 10/17/24 08:36 98.1 F 80 20 127/63 96 Intake & Output: Intake & Output 10/15/24 10/15/24 10/16/24 10/17/24 00:59 23:59 23:59 23:59 Intake Total 740 / 740 1290 / 1290 Output Total 400 / 400 1600 / 1600 Balance 340 / 340 -310 / -310 Weight (kg) 77.111 kg Objective General Appearance: positive No acute distress and Alert Eyes Bilateral: positive Normal inspection, PERRL and EOMI ENT: positive ENT inspection nml Neck: positive Nml inspection Respiratory: positive Chest non-tender and No respiratory distress Cardiovascular: positive Irregularly irregular Abdomen: positive Non-tender Back: positive Nml inspection; negative CVA tenderness (R) or CVA tenderness (L) Skin: positive Color nml and Other (LLE with extensive ulceration with white granulation tissue noted; some erythema around wounds) Extremities: positive Other (R hand erythema, edema, and tenderness. Improved from yesterday. Pain continues to extend 2-3 inches up forearm. ) Neurologic/Psychiatric: positive Oriented x3, CN's nml (2-12), Motor nml, Sensation nml and Mood/affect nml Lab Results 10/17/24 05:31 10/17/24 05:31 Other Labs: Lab Results x24hrs 10/17/24 Range/Units 05:31 WBC 15.6 H (4.8-10.8) x10^3/uL RBC 3.56 L (4.20-5.40) 10^6/uL Hgb 11.7 L (12.0-16.0) g/dL Hct 37.2 (37.0-47.0) % MCV 104.5 H (81.0-99.0) fL MCH 32.9 H (27.0-31.0) pg MCHC 31.5 L (32.0-36.0) g/dL RDW 15.2 H (12.0-15.0) % Plt Count 278 (130-450) 10^3/uL MPV 10.1 (7.9-10.8) fL Sodium 134 L (135-145) mmol/L Potassium 5.0 H (3.5-4.5) mmol/L Chloride 100 L (101-111) mmol/L Carbon Dioxide 32 (21-32) mmol/L Anion Gap 2.0 L (6-13) BUN 29 H (6-20) mg/dL Creatinine 0.6 (0.6-1.3) mg/dL Estimated GFR (MDRD) 97 (>89) Glucose 269 H (74-104) mg/dL Calcium 9.4 (8.5-10.3) mg/dL Magnesium 1.9 (1.7-2.3) mg/dL Diagnostic Imaging Diagnostic Imaging Results: positive Final report reviewed Sepsis Event Note (H) Evaluation Current Stage of Sepsis: Sepsis Possible source of Sepsis: positive Skin/soft tissue Sepsis Criteria Sepsis Criteria: Recorded Temperature greater than 38.3C or Less than 36C, WBC count greater than 10% bands and WBC count greater than 12,000 or less than 4000 Assessment/Plan Problem List (1) Sepsis: Impression: Patient with leukocytosis, febrile at home. Source of wound is left lower extremity chronic wound. Continue cefepime and vancomycin at this time. Will monitor for drug toxicity with vancomycin trough levels. ESR and CRP within normal limits. Less concern for osteomyelitis at this time. Attempted to reach out to patient's wound care doctor, Dr. Thomas, for further assistance - he is on vacation but his partner was spoken with. They have not been debriding this wound. Plan is for biopsy with dermatology this 10/19/24; will try our best to send her there. Qualifiers: Sepsis acute organ dysfunction status: without acute organ dysfunction Sepsis type: sepsis due to unspecified organism Qualified Code(s): A41.9 - Sepsis, unspecified organism (2) Leukocytosis: Impression: Management as above. Resolving. Blood cultures, no growth to date. Qualifiers: Leukocytosis type: unspecified Qualified Code(s): D72.829 - Elevated white blood cell count, unspecified (3) Acute hypokalemia: Impression: Repleted, continue to trend. (4) Atrial fibrillation with controlled ventricular rate: Impression: Patient is not on any rate control medications at this time. Recently started on Eliquis approximately 10 days ago by server cashier, his notes were reviewed. Continued inpatient. Will hold if plans for surgical procedure. (5) PVD (peripheral vascular disease): Impression: Chronic condition, stable. Chronic wounds of left lower extremity. Outpatient wound care doctor is considering skin grafts. (6) GERD (gastroesophageal reflux disease): Impression: Continue Protonix. Qualifiers: Esophagitis presence: without esophagitis Qualified Code(s): K21.9 - Gastro-esophageal reflux disease without esophagitis (7) Hyperlipidemia: Impression: Continue statin. Qualifiers: Hyperlipidemia type: unspecified Qualified Code(s): E78.5 - Hyperlipidemia, unspecified (8) Interstitial pulmonary fibrosis: Impression: Chronic. On 2L of oxygen at home, continue at this time. Has history of pulmonary hypertension with this. Was on CellCept previously, currently held as she gets worked up for her left lower extremity ulcers. On a prednisone taper; continue at this time. (9) Diastolic heart failure: Impression: Compensated at this time. Continue Lasix. Qualifiers: Heart failure chronicity: chronic Qualified Code(s): I50.32 - Chronic diastolic (congestive) heart failure (10) Mixed connective tissue disease: Impression: Patient has been on immunosuppresants in the past. Stable. Continue to monitor.
--- NOTE | 2024-10-17 16:04 | OT Plan of Care ---
OT Inpatient POC Diagnosis DIAGNOSIS Diagnosis: sepsis Chief Complaint: weakness, limited mobility, pain Onset of Chief Complaint: [employer]OM [employer]ER Referring Provider: Estrella Gates MEDICAL/SURGICAL HISTORY Medical History Cellulitis of right hand Sep 2024 Mixed connective tissue disease Thyroid nodule (07/03/12) never heard that she had this Recurrent UTI (urinary tract infection) (08/16/22) Obstructive sleep apnea (10/22/16) better now. Gastroparesis Anxiety disorder Surgical History S/P insertion of intrathecal pump S/P insertion of spinal cord stimulator History of carpal tunnel surgery of left wrist H/O shoulder surgery History of lung biopsy Status post creation of pericardial window History of hysterectomy History of cholecystectomy History of tonsillectomy History of total bilateral knee replacement Assessment and Goals ASSESSMENT Assessment: Patient is a 78-year-old female with a history of diastolic heart failure, venous insufficiency with chronic wounds of the left lower extremity including Pseudomonas, interstitial lung disease on 2 L at baseline who presents with weakness and fatigue. Adm with sepsis - Patient was admitted from 10/05 to 10/10 for right hand cellulitis. Pt was followed by orthopedics while inpatient without need for surgical intervention and d/c on oral antibiotics. Per pt- WBAT at this time L UE. L LE WBAT. Met sitting EOB Performed sit to stand and SPT bed to chair MIN-MOD A using RW Forwards flexed, cues for safety and RW management. Currently MOD-MAX A ADLs. Overall presents with decreased endurance, activity tolerance and ADL status. Will benefit from cont OT services during acute stay. Rec d/c to SNF at this time. -Activities of Daily Living Improve Upper Extremity Dressing to:: Standby Assist Improve Lower Extremity Dressing to:: Standby Assist Improve Grooming/Hygiene to:: Standby Assist Improve Bathing to:: Standby Assist Improve Toileting to:: Standby Assist OT Inpatient Plan PLAN Treatment Frequency: 1x/day Duration: Until discharge -Discharge Recommendations Discharge Location: [facility] Transport Needs at Discharge: Wheelchair van
--- NOTE | 2024-10-17 16:22 | PT Plan of Care ---
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 Gastroparesis Anxiety disorder Surgical History S/P insertion of intrathecal pump S/P insertion of spinal cord stimulator History of carpal tunnel surgery of left wrist H/O shoulder surgery History of lung biopsy Status post creation of pericardial window History of hysterectomy History of cholecystectomy History of tonsillectomy History of total bilateral knee replacement BALANCE/FUNCTIONAL RESULTS Sitting Balance: Good Standing Balance: Fair ASSESSMENT Assessment: Pt is a 78yo F referred for PT eval d/t limited mobility and weakness. Admitted with sepsis. Of note pt was admitted approx 1 week ago with RUE cellulitis NWB per ortho, also has history of pulmonary fibrosis and LLE wound, currently wrapped in gauze and weeping. Pt is reportedly Alex at home using 4WW for short distances up to 20' but uses a wc for longer distances. Pt lives with . Extensive medical and surgical hx; please see chart for further details. Upon PT eval, pt is sitting at EOB. Requires min to modAx1 for STS and SPT to chair with FWW. WBing status of RUE unclear so advised pt to maintain NWBing and will clarify with hospitalist. Overall presenting with deficits in strength, safety awareness, gait and is unsafe to live in a multistory home at this time. Pt will benefit from skilled PT in acute setting to improve upright tolerance and progress gait training. When medically clear, PT rec dc to SNF. GOALS Improve supine to sit to:: Modified Independent Improve sit to stand to:: Contact Guard Improve pivot transfer ability to:: Contact Guard Improve sit to supine to:: Standby Assist Improve gait ability to:: CGA Advance Assistive Device to:: Front Wheeled Walker Increase distance walked to (in feet):: 20 Reduce verbal cues to:: 0 Reduce physical cues to:: 0 Improve Lower Extremity ROM to:: Limited/End Range Improve Lower Extremity Strength to:: Fair Improve Upper Extremity ROM to:: WFL Improve Upper Extremity Strength to:: Good Improve Sitting Balance to:: Good PLAN Frequency: 1-2x/day Duration: Until goals are met DISCHARGE RECOMMENDATIONS [facility] Equipment Recommended: Front wheeled walker Other Discharge Equipment: TBD Transport Needs at Discharge: Wheelchair van
[2024-10-17] MEDS: MAGNESIUM OXIDE 400 MG TABLET PO SCH (22:11)
[2024-10-18 04:49] LABS: HCT - HEMATOCRIT 33.7 % (37.0-47.0); HGB - HEMOGLOBIN 10.8 g/dL (12.0-16.0); MEAN CORPUSCULAR VOLUME 103.1 fL (81.0-99.0); MEAN PLATELET VOLUME 10.4 fL (7.9-10.8); RED BLOOD COUNT 3.27 10^6/uL (4.20-5.40); RED CELL DISTRIBUTION WIDTH 14.8 % (12.0-15.0); WHITE BLOOD COUNT 18.3 x10^3/uL (4.8-10.8)
[2024-10-18 05:05] LABS: CALCIUM 8.8 mg/dL (8.5-10.3); CREATININE 0.6 mg/dL (0.6-1.3); MAGNESIUM 1.9 mg/dL (1.7-2.3); POTASSIUM 4.3 mmol/L (3.5-4.5)
[2024-10-18] MEDS: NYSTATIN 500000 UNITS/5 ML UDC PO ONE (06:45)
[2024-10-18 10:50] LABS: ESTIMATED AVERAGE GLUCOSE 174 mg/dL (70-100); HEMOGLOBIN A1c% 7.7 % (4.27-6.07)
[2024-10-18] MEDS: INSULIN LISPRO 300 UNIT/3 ML PEN SUBQ SCH ×2 (11:51→17:23)
--- NOTE | 2024-10-18 12:32 | PROVIDER PROGRESS NOTE ---
Subjective Subjective Subjective: Madelin feels about the same today. She has chronic pain over the left lower extremity, especially with movement. She denies any fevers or chills. She has a good appetite. Current Medications Current Medications Current Medications: Current Medications Generic Name Dose Route Start Last Admin Trade Name Rico PRN Reason Stop Dose Admin Acetaminophen 650 mg 10/16/24 15:49 10/17/24 11:30 Acetaminophen 325 Mg Tablet PO 650 mg Q4HR PRN Administration Pain 1 to 4, or Fever Apixaban 2.5 mg 10/16/24 21:00 10/18/24 08:32 Apixaban 2.5 Mg Tablet PO 2.5 mg BID YONY Administration Ascorbic Acid 500 mg 10/16/24 15:49 10/18/24 08:32 Ascorbic Acid 500 Mg Tablet PO 500 mg DAILY YONY Administration Aspirin 162 mg 10/16/24 15:49 10/18/24 08:32 Aspirin Ec 81 Mg Tablet PO 162 mg DAILY YONY Administration Atorvastatin Calcium 20 mg 10/16/24 21:00 10/17/24 22:10 Atorvastatin 10 Mg Tablet PO 20 mg QPM YONY Administration Calcium Carbonate/Glycine 500 mg 10/17/24 09:00 10/18/24 08:32 Calcium Carb (Oyster Shell) 500 Mg Tablet PO 500 mg DAILY YONY Administration Carvedilol 6.25 mg 10/16/24 21:00 10/18/24 08:31 Carvedilol 3.125 Mg Tablet PO 6.25 mg BID YONY Administration Cefepime HCl 2 gm 10/16/24 22:00 10/18/24 10:39 Cefepime 2 Gm Vial IVP 2 gm Q12H YONY Administration Cholecalciferol 25 mcg 10/16/24 15:49 10/18/24 08:32 Cholecalciferol 25 Mcg Tablet PO 25 mcg DAILY YONY Administration Clobetasol Propionate 1 applic 10/17/24 12:00 10/18/24 08:32 Clobetasol 0.05% Oint 15 Gm Tube TOP 1 applic DAILY YONY Administration Duloxetine HCl 60 mg 10/16/24 15:49 10/18/24 08:31 Duloxetine 60 Mg Capsule PO 60 mg DAILY YONY Administration Ferrous Sulfate 325 mg 10/17/24 08:00 10/18/24 08:32 Ferrous Sulfate 325 Mg Tablet PO 325 mg DAILYWM YONY Administration Furosemide 20 mg 10/17/24 09:00 10/18/24 08:32 Furosemide 20 Mg Tablet PO 20 mg DAILY YONY Administration Vancomycin HCl 1 gm/ Sodium 250 mls @ 167 mls/hr 10/16/24 23:00 10/18/24 11:25 Chloride IV 167 mls/hr Q12H YONY Administration Insulin Human Lispro 1 - 5 unit 10/18/24 12:00 10/18/24 11:51 Insulin Lispro 300 Unit/3 Ml Pen SUBQ 5 unit 0800,1200,1700,2100 YONY Administration Protocol Isosorbide Mononitrate 30 mg 10/16/24 15:49 10/18/24 08:31 Isosorbide Mononitrate Er 30 Mg Tablet PO 30 mg DAILY YONY Administration Magnesium Oxide 400 mg 10/17/24 10:54 10/18/24 08:32 Magnesium Oxide 400 Mg Tablet PO 400 mg BID YONY Administration Nitroglycerin 0.4 mg 10/16/24 15:49 Nitroglycerin Sl 0.4 Mg Tablet SL Q5M PRN chest pain Nystatin 1 ml 10/17/24 12:00 10/18/24 08:32 Nystatin [id number] Units/5 Ml Udc PO 1 ml DAILY YONY Administration Ondansetron HCl 4 mg 10/16/24 15:49 Ondansetron Odt 4 Mg Tablet TL Q6HR PRN Nausea / Vomiting Oxycodone HCl 5 mg 10/17/24 11:11 10/17/24 11:30 Oxycodone 5 Mg Tablet PO 5 mg Q4HR PRN Administration Moderate Pain (Level 4-6) Pantoprazole Sodium 40 mg 10/16/24 15:49 10/18/24 08:32 Pantoprazole 40 Mg Tablet PO 40 mg DAILY YONY Administration Prazosin HCl 1 mg 10/16/24 21:00 10/17/24 22:11 Prazosin 1 Mg Capsule PO 1 mg QPM YONY Administration Prednisone 5 mg 10/17/24 09:00 10/18/24 08:32 Prednisone 5 Mg Tablet PO 5 mg DAILY YONY Administration Multivit/Folic Acid/Iron 1 tab 10/17/24 08:00 10/18/24 08:32 Vitamin Tablet PO 1 tab DAILYWM YONY Administration Sodium Chloride 10 ml 10/16/24 15:49 Sodium Chloride Flush 0.9% 10 Ml Syringe IVP PRN PRN NEEDED PER PROVIDER ORDERS Sodium Chloride 10 ml 10/16/24 17:00 10/18/24 08:33 Sodium Chloride Flush 0.9% 10 Ml Syringe IVP 10 ml 0100,0900,1700 YONY Administration Valacyclovir HCl 500 mg 10/16/24 15:49 10/18/24 08:31 Valacyclovir 500 Mg Tablet PO 500 mg DAILY YONY Administration Objective Vital Signs/Intake & Output Reviewed Vital Signs: Yes Vital Signs: Vital Signs x48h Temp Pulse Resp BP Pulse Ox O2 Flow Rate 10/18/24 11:33 2 10/18/24 07:40 98.4 F 94 16 102/69 99 2 Intake & Output: Intake & Output 10/15/24 10/16/24 10/17/24 10/18/24 23:59 23:59 23:59 23:59 Intake Total 740 / 740 1930 / 1930 610 / 610 Output Total 400 / 400 0 / 0 200 / 200 Balance 340 / 340 -120 / -120 410 / 410 Weight (kg) 77.111 kg Objective General Appearance: positive No acute distress and Alert Eyes Bilateral: positive Normal inspection, PERRL and EOMI ENT: positive ENT inspection nml Neck: positive Nml inspection Respiratory: positive Chest non-tender and No respiratory distress Cardiovascular: positive Irregularly irregular Abdomen: positive Non-tender Back: positive Nml inspection; negative CVA tenderness (R) or CVA tenderness (L) Skin: positive Color nml and Other (LLE with extensive ulceration with white granulation tissue noted; some erythema around wounds) Extremities: positive Other (R hand erythema, edema, and tenderness. Improved from yesterday. Pain continues to extend 2-3 inches up forearm. ) Neurologic/Psychiatric: positive Oriented x3, CN's nml (2-12), Motor nml, Sensation nml and Mood/affect nml Lab Results 10/18/24 04:36 10/18/24 04:36 Other Labs: Lab Results x24hrs 10/18/24 10/18/24 Range/Units 11:21 04:36 WBC 18.3 H (4.8-10.8) x10^3/uL RBC 3.27 L (4.20-5.40) 10^6/uL Hgb 10.8 L (12.0-16.0) g/dL Hct 33.7 L (37.0-47.0) % MCV 103.1 H (81.0-99.0) fL MCH 33.0 H (27.0-31.0) pg MCHC 32.0 (32.0-36.0) g/dL RDW 14.8 (12.0-15.0) % Plt Count 261 (130-450) 10^3/uL MPV 10.4 (7.9-10.8) fL Sodium 133 L (135-145) mmol/L Potassium 4.3 (3.5-4.5) mmol/L Chloride 100 L (101-111) mmol/L Carbon Dioxide 29 (21-32) mmol/L Anion Gap 4.0 L (6-13) BUN 29 H (6-20) mg/dL Creatinine 0.6 (0.6-1.3) mg/dL Estimated GFR (MDRD) 97 (>89) Glucose 325 H (74-104) mg/dL POC Whole Bld Glucose 359 (70-100) mg/dL Estimat Average Glucose 174 H (70-100) mg/dL Hemoglobin A1c % 7.7 H (4.27-6.07) % Calcium 8.8 (8.5-10.3) mg/dL Magnesium 1.9 (1.7-2.3) mg/dL Diagnostic Imaging Diagnostic Imaging Results: positive Final report reviewed Sepsis Event Note (H) Evaluation Current Stage of Sepsis: Sepsis Possible source of Sepsis: positive Skin/soft tissue Sepsis Criteria Sepsis Criteria: Recorded Temperature greater than 38.3C or Less than 36C, WBC count greater than 10% bands and WBC count greater than 12,000 or less than 4000 Assessment/Plan Problem List (1) Sepsis: Impression: Patient with leukocytosis, febrile at home. Source of wound is left lower extremity chronic wound. Continue cefepime and vancomycin at this time. Will monitor for drug toxicity with vancomycin trough levels. ESR and CRP within normal limits. Less concern for osteomyelitis at this time. Attempted to reach out to patient's wound care doctor, Dr. Thomas, for further assistance - he is on vacation but his partner was spoken with. They have not been debriding this wound. Plan is for biopsy with dermatology this 10/19/24; will try our best to send her there. Qualifiers: Sepsis acute organ dysfunction status: without acute organ dysfunction Sepsis type: sepsis due to unspecified organism Qualified Code(s): A41.9 - Sepsis, unspecified organism (2) Leukocytosis: Impression: Management as above. Blood cultures, no growth to date. Qualifiers: Leukocytosis type: unspecified Qualified Code(s): D72.829 - Elevated white blood cell count, unspecified (3) Acute hypokalemia: Impression: Repleted, continue to trend. (4) Atrial fibrillation with controlled ventricular rate: Impression: Patient is not on any rate control medications at this time. Recently started on Eliquis approximately 10 days ago by laborer steel handling, his notes were reviewed. Continued inpatient. Will hold if plans for surgical procedure. (5) PVD (peripheral vascular disease): Impression: Chronic condition, stable. Chronic wounds of left lower extremity. Outpatient wound care doctor is considering skin grafts. (6) GERD (gastroesophageal reflux disease): Impression: Continue Protonix. Qualifiers: Esophagitis presence: without esophagitis Qualified Code(s): K21.9 - Gastro-esophageal reflux disease without esophagitis (7) Hyperlipidemia: Impression: Continue statin. Qualifiers: Hyperlipidemia type: unspecified Qualified Code(s): E78.5 - Hyperlipidemia, unspecified (8) Interstitial pulmonary fibrosis: Impression: Chronic. On 2L of oxygen at home, continue at this time. Has history of pulmonary hypertension with this. Was on CellCept previously, currently held as she gets worked up for her left lower extremity ulcers. On a prednisone taper; continue at this time. (9) Diastolic heart failure: Impression: Compensated at this time. Continue Lasix. Qualifiers: Heart failure chronicity: chronic Qualified Code(s): I50.32 - Chronic diastolic (congestive) heart failure (10) Mixed connective tissue disease: Impression: Patient has been on immunosuppresants in the past. Stable. Continue to monitor.
[2024-10-18] MEDS: NYSTATIN 500000 UNITS/5 ML UDC PO SCH (17:22)
[2024-10-19 04:53] LABS: HCT - HEMATOCRIT 36.1 % (37.0-47.0); HGB - HEMOGLOBIN 11.4 g/dL (12.0-16.0); MEAN CORPUSCULAR HEMOGLOBIN 32.8 pg (27.0-31.0); MEAN CORPUSCULAR HGB CONC 31.6 g/dL (32.0-36.0); MEAN CORPUSCULAR VOLUME 103.7 fL (81.0-99.0); MEAN PLATELET VOLUME 10.9 fL (7.9-10.8); RED BLOOD COUNT 3.48 10^6/uL (4.20-5.40); RED CELL DISTRIBUTION WIDTH 15.1 % (12.0-15.0); WHITE BLOOD COUNT 17.7 x10^3/uL (4.8-10.8)
[2024-10-19 05:10] LABS: CALCIUM 9.2 mg/dL (8.5-10.3); CREATININE 0.6 mg/dL (0.6-1.3); POTASSIUM 4.4 mmol/L (3.5-4.5)
[2024-10-19 11:06] LABS: VANCOMYCIN,TROUGH 21.7 ug/mL
--- NOTE | 2024-10-19 11:46 | PROVIDER PROGRESS NOTE ---
Subjective Subjective Subjective: Madelin feels about the same today. She has chronic pain over the left lower extremity, especially with movement. She denies any fevers or chills. She has a good appetite. Juan Carlos, the RN, helped her reschedule her Dermatology appointment and biopsy. Current Medications Current Medications Current Medications: Current Medications Generic Name Dose Route Start Last Admin Trade Name Rico PRN Reason Stop Dose Admin Acetaminophen 650 mg 10/16/24 15:49 10/19/24 00:17 Acetaminophen 325 Mg Tablet PO 650 mg Q4HR PRN Administration Pain 1 to 4, or Fever Apixaban 2.5 mg 10/16/24 21:00 10/19/24 08:42 Apixaban 2.5 Mg Tablet PO 2.5 mg BID YONY Administration Ascorbic Acid 500 mg 10/16/24 15:49 10/19/24 08:41 Ascorbic Acid 500 Mg Tablet PO 500 mg DAILY YONY Administration Aspirin 162 mg 10/16/24 15:49 10/19/24 08:41 Aspirin Ec 81 Mg Tablet PO 162 mg DAILY YONY Administration Atorvastatin Calcium 20 mg 10/16/24 21:00 10/18/24 21:33 Atorvastatin 10 Mg Tablet PO 20 mg QPM YONY Administration Calcium Carbonate/Glycine 500 mg 10/17/24 09:00 10/19/24 08:42 Calcium Carb (Oyster Shell) 500 Mg Tablet PO 500 mg DAILY YONY Administration Carvedilol 6.25 mg 10/16/24 21:00 10/19/24 08:41 Carvedilol 3.125 Mg Tablet PO 6.25 mg BID YONY Administration Cefepime HCl 2 gm 10/16/24 22:00 10/19/24 10:09 Cefepime 2 Gm Vial IVP 2 gm Q12H YONY Administration Cholecalciferol 25 mcg 10/16/24 15:49 10/19/24 08:42 Cholecalciferol 25 Mcg Tablet PO 25 mcg DAILY YONY Administration Clobetasol Propionate 1 applic 10/17/24 12:00 10/19/24 09:51 Clobetasol 0.05% Oint 15 Gm Tube TOP 1 applic DAILY YONY Administration Duloxetine HCl 60 mg 10/16/24 15:49 10/19/24 08:41 Duloxetine 60 Mg Capsule PO 60 mg DAILY YONY Administration Ferrous Sulfate 325 mg 10/17/24 08:00 10/19/24 08:42 Ferrous Sulfate 325 Mg Tablet PO 325 mg DAILYWM [facility] Administration Furosemide 20 mg 10/17/24 09:00 10/19/24 08:41 Furosemide 20 Mg Tablet PO 20 mg DAILY [facility] Administration Vancomycin HCl 1 gm/ 500 mls @ 250 mls/hr 10/19/24 16:00 Vancomycin HCl 500 mg/ Sodium IV Chloride Q24H [facility] Insulin Human Lispro 1 - 9 unit 10/18/24 17:05 10/19/24 08:42 Insulin Lispro 300 Unit/3 Ml Pen SUBQ 5 unit 0800,1200,1700,2100 [facility] Administration Protocol Isosorbide Mononitrate 30 mg 10/16/24 15:49 10/19/24 08:42 Isosorbide Mononitrate Er 30 Mg Tablet PO 30 mg DAILY [facility] Administration Magnesium Oxide 400 mg 10/17/24 10:54 10/19/24 08:41 Magnesium Oxide 400 Mg Tablet PO 400 mg BID [facility] Administration Nitroglycerin 0.4 mg 10/16/24 15:49 Nitroglycerin Sl 0.4 Mg Tablet SL Q5M PRN chest pain Nystatin 5 ml 10/18/24 17:00 10/19/24 08:41 Nystatin 990000 Units/5 Ml Udc PO 5 ml QID [facility] Administration Ondansetron HCl 4 mg 10/16/24 15:49 Ondansetron Odt 4 Mg Tablet TL Q6HR PRN Nausea / Vomiting Oxycodone HCl 5 mg 10/17/24 11:11 10/17/24 11:30 Oxycodone 5 Mg Tablet PO 5 mg Q4HR PRN Administration Moderate Pain (Level 4-6) Pantoprazole Sodium 40 mg 10/16/24 15:49 10/19/24 08:41 Pantoprazole 40 Mg Tablet PO 40 mg DAILY [facility] Administration Prazosin HCl 1 mg 10/16/24 21:00 10/18/24 21:33 Prazosin 1 Mg Capsule PO 1 mg QPM [facility] Administration Prednisone 5 mg 10/17/24 09:00 10/19/24 08:42 Prednisone 5 Mg Tablet PO 5 mg DAILY [facility] Administration Multivit/Folic Acid/Iron 1 tab 10/17/24 08:00 10/19/24 08:41 Vitamin Tablet PO 1 tab DAILYWM [facility] Administration Sodium Chloride 10 ml 10/16/24 15:49 Sodium Chloride Flush 0.9% 10 Ml Syringe IVP PRN PRN NEEDED PER PROVIDER ORDERS Sodium Chloride 10 ml 10/16/24 17:00 10/19/24 09:51 Sodium Chloride Flush 0.9% 10 Ml Syringe IVP 10 ml 0100,0900,1700 YONY Administration Valacyclovir HCl 500 mg 10/16/24 15:49 10/19/24 09:51 Valacyclovir 500 Mg Tablet PO 500 mg DAILY YONY Administration Objective Vital Signs/Intake & Output Reviewed Vital Signs: Yes Vital Signs: Vital Signs x48h Temp Pulse Resp BP Pulse Ox O2 Flow Rate 10/19/24 07:40 97.5 F L 89 18 110/75 100 2 Intake & Output: Intake & Output 10/16/24 10/17/24 10/18/24 10/19/24 23:59 23:59 23:59 23:59 Intake Total 740 / 740 1930 / 1930 1690 / 1690 850 / 850 Output Total 400 / 400 0 / 0 1300 / 1300 400 / 400 Balance 340 / 340 -120 / -120 390 / 390 450 / 450 Weight (kg) 77.111 kg Objective General Appearance: positive No acute distress and Alert Eyes Bilateral: positive Normal inspection, PERRL and EOMI ENT: positive ENT inspection nml Neck: positive Nml inspection Respiratory: positive Chest non-tender and No respiratory distress Cardiovascular: positive Irregularly irregular Abdomen: positive Non-tender Back: positive Nml inspection; negative CVA tenderness (R) or CVA tenderness (L) Skin: positive Color nml and Other (LLE with extensive ulceration with white granulation tissue noted; some erythema around wounds) Extremities: positive Other (R hand erythema, edema, and tenderness. Improved from yesterday. Pain continues to extend 2-3 inches up forearm. ) Neurologic/Psychiatric: positive Oriented x3, CN's nml (2-12), Motor nml, Sensation nml and Mood/affect nml Lab Results 10/19/24 04:23 10/19/24 04:23 Other Labs: Lab Results x24hrs 10/19/24 10/19/24 10/19/24 Range/Units 11:26 10:47 07:30 WBC (4.8-10.8) x10^3/uL RBC (4.20-5.40) 10^6/uL Hgb (12.0-16.0) g/dL Hct (37.0-47.0) % MCV (81.0-99.0) fL MCH (27.0-31.0) pg MCHC (32.0-36.0) g/dL RDW (12.0-15.0) % Plt Count (130-450) 10^3/uL MPV (7.9-10.8) fL Sodium (135-145) mmol/L Potassium (3.5-4.5) mmol/L Chloride (101-111) mmol/L Carbon Dioxide (21-32) mmol/L Anion Gap (6-13) BUN (6-20) mg/dL Creatinine (0.6-1.3) mg/dL Estimated GFR (MDRD) (>89) Glucose (74-104) mg/dL POC Whole Bld Glucose 282 240 (70-100) mg/dL Calcium (8.5-10.3) mg/dL Magnesium (1.7-2.3) mg/dL Last Dose Date 10-19-24 Last Dose Time 01:01 Vancomycin Trough 21.7 ug/mL 10/19/24 10/18/24 10/18/24 Range/Units 04:23 20:32 16:49 WBC 17.7 H (4.8-10.8) x10^3/uL RBC 3.48 L (4.20-5.40) 10^6/uL Hgb 11.4 L (12.0-16.0) g/dL Hct 36.1 L (37.0-47.0) % MCV 103.7 H (81.0-99.0) fL MCH 32.8 H (27.0-31.0) pg MCHC 31.6 L (32.0-36.0) g/dL RDW 15.1 H (12.0-15.0) % Plt Count 267 (130-450) 10^3/uL MPV 10.9 H (7.9-10.8) fL Sodium 134 L (135-145) mmol/L Potassium 4.4 (3.5-4.5) mmol/L Chloride 98 L (101-111) mmol/L Carbon Dioxide 30 (21-32) mmol/L Anion Gap 6.0 (6-13) BUN 42 H (6-20) mg/dL Creatinine 0.6 (0.6-1.3) mg/dL Estimated GFR (MDRD) 97 (>89) Glucose 257 H (74-104) mg/dL POC Whole Bld Glucose 248 304 (70-100) mg/dL Calcium 9.2 (8.5-10.3) mg/dL Magnesium 2.0 (1.7-2.3) mg/dL Last Dose Date Last Dose Time Vancomycin Trough ug/mL Diagnostic Imaging Diagnostic Imaging Results: positive Final report reviewed Sepsis Event Note (H) Evaluation Current Stage of Sepsis: Sepsis Possible source of Sepsis: positive Skin/soft tissue Sepsis Criteria Sepsis Criteria: Recorded Temperature greater than 38.3C or Less than 36C, WBC count greater than 10% bands and WBC count greater than 12,000 or less than 4000 Assessment/Plan Problem List (1) Sepsis: Impression: Patient with leukocytosis, febrile at home. Source of wound is left lower extremity chronic wound. Continue cefepime and vancomycin at this time. Will monitor for drug toxicity with vancomycin trough levels. ESR and CRP within normal limits. Less concern for osteomyelitis at this time. Attempted to reach out to patient's wound care doctor, Dr. Thomas, for further assistance - he is on vacation but his partner was spoken with. They have not been debriding this wound. Plan is for biopsy with dermatology this 10/19/24; rescheduled. Qualifiers: Sepsis acute organ dysfunction status: without acute organ dysfunction Sepsis type: sepsis due to unspecified organism Qualified Code(s): A41.9 - Sepsis, unspecified organism (2) Leukocytosis: Impression: Management as above. Blood cultures, no growth to date. Qualifiers: Leukocytosis type: unspecified Qualified Code(s): D72.829 - Elevated white blood cell count, unspecified (3) Acute hypokalemia: Impression: Repleted, continue to trend. (4) Atrial fibrillation with controlled ventricular rate: Impression: Patient is not on any rate control medications at this time. 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 Continued inpatient. Will hold if plans for surgical procedure. (5) PVD (peripheral vascular disease): Impression: Chronic condition, stable. Chronic wounds of left lower extremity. Outpatient wound care doctor is considering skin grafts. (6) GERD (gastroesophageal reflux disease): Impression: Continue Protonix. Qualifiers: Esophagitis presence: without esophagitis Qualified Code(s): K21.9 - Gastro-esophageal reflux disease without esophagitis (7) Hyperlipidemia: Impression: Continue statin. Qualifiers: Hyperlipidemia type: unspecified Qualified Code(s): E78.5 - Hyperlipidemia, unspecified (8) Interstitial pulmonary fibrosis: Impression: Chronic. On 2L of oxygen at home, continue at this time. Has history of pulmonary hypertension with this. Was on CellCept previously, currently held as she gets worked up for her left lower extremity ulcers. On a prednisone taper; continue at this time. (9) Diastolic heart failure: Impression: Compensated at this time. Continue Lasix. Qualifiers: Heart failure chronicity: chronic Qualified Code(s): I50.32 - Chronic diastolic (congestive) heart failure (10) Mixed connective tissue disease: Impression: Patient has been on immunosuppresants in the past. Stable. Continue to monitor.
--- NOTE | 2024-10-19 12:52 | PHARMACY PROGRESS NOTE ---
Vancomycin Therapy Monitoring Patient Information Vancomycin Pt Height (inches): 64 Vancomycin Patient Weight (kg): 77 Vanco Rx Serum Creatinine (mg/dL): 0.6 Vancomycin Therapy BUN (mg/dL): 42 Vancomycin Therapy Calculated Creatinine Cl (ml/min): 66 Concurrent Antibiotics: CEFEPIME Vancomycin Therapy Goals Treatment Indication: CELLULITIS Vancomycin Target Range: Vancomycin AUC Target Range 400-600 mcg*h/ml Assessment of Current Therapy Vancomycin Current Regimen: Supratherapeutic Levels Plan: Current Vancomycin Maintenance Regimen (if applicable): 1000 MG IV EVERY 12HOURS Pharmacy recommendation: Decrease dose New Regimen (Enter new dose and interval): 1500 MG IV EVERY 24 HOURS Vancomycin Level Recommendation: Vancomycin Level Recommendation
[2024-10-19] MEDS: VANCOMYCIN INJ 1 GM, VANCOMYCIN INJ 500 MG in SODIUM CHLORIDE 0.9% 500 ML IV SCH (16:31)
[2024-10-19] MEDS: INSULIN LISPRO 300 UNIT/3 ML PEN SUBQ SCH (17:53)
[2024-10-20 04:34] LABS: HCT - HEMATOCRIT 36.6 % (37.0-47.0); HGB - HEMOGLOBIN 11.6 g/dL (12.0-16.0); MEAN CORPUSCULAR HEMOGLOBIN 32.9 pg (27.0-31.0); MEAN CORPUSCULAR HGB CONC 31.7 g/dL (32.0-36.0); MEAN CORPUSCULAR VOLUME 103.7 fL (81.0-99.0); MEAN PLATELET VOLUME 10.6 fL (7.9-10.8); RED BLOOD COUNT 3.53 10^6/uL (4.20-5.40); RED CELL DISTRIBUTION WIDTH 15.1 % (12.0-15.0); WHITE BLOOD COUNT 15.9 x10^3/uL (4.8-10.8)
[2024-10-20 04:51] LABS: CALCIUM 9.6 mg/dL (8.5-10.3); CREATININE 0.5 mg/dL (0.6-1.3); POTASSIUM 4.3 mmol/L (3.5-4.5)
[2024-10-20] MEDS: INSULIN LISPRO 300 UNIT/3 ML PEN SUBQ SCH (08:26)
--- NOTE | 2024-10-20 09:31 | PROVIDER PROGRESS NOTE ---
Subjective Subjective Subjective: Madelin feels about the same today. She has chronic pain over the left lower extremity, especially with movement. She denies any fevers or chills. She has a good appetite. Juan Carlos, the RN, helped her reschedule her Dermatology appointment and biopsy. Current Medications Current Medications Current Medications: Current Medications Generic Name Dose Route Start Last Admin Trade Name Robertq PRN Reason Stop Dose Admin Acetaminophen 650 mg 10/16/24 15:49 10/19/24 00:17 Acetaminophen 325 Mg Tablet PO 650 mg Q4HR PRN Administration Pain 1 to 4, or Fever Apixaban 2.5 mg 10/16/24 21:00 10/20/24 08:27 Apixaban 2.5 Mg Tablet PO 2.5 mg BID YONY Administration Ascorbic Acid 500 mg 10/16/24 15:49 10/20/24 08:27 Ascorbic Acid 500 Mg Tablet PO 500 mg DAILY YONY Administration Aspirin 162 mg 10/16/24 15:49 10/20/24 08:27 Aspirin Ec 81 Mg Tablet PO 162 mg DAILY YONY Administration Atorvastatin Calcium 20 mg 10/16/24 21:00 10/19/24 21:31 Atorvastatin 10 Mg Tablet PO 20 mg QPM YONY Administration Calcium Carbonate/Glycine 500 mg 10/17/24 09:00 10/20/24 08:27 Calcium Carb (Oyster Shell) 500 Mg Tablet PO 500 mg DAILY YONY Administration Carvedilol 6.25 mg 10/16/24 21:00 10/20/24 08:27 Carvedilol 3.125 Mg Tablet PO 6.25 mg BID YONY Administration Cefepime HCl 2 gm 10/16/24 22:00 10/19/24 21:43 Cefepime 2 Gm Vial IVP 2 gm Q12H YONY Administration Cholecalciferol 25 mcg 10/16/24 15:49 10/20/24 08:27 Cholecalciferol 25 Mcg Tablet PO 25 mcg DAILY YONY Administration Clobetasol Propionate 1 applic 10/17/24 12:00 10/20/24 08:28 Clobetasol 0.05% Oint 15 Gm Tube TOP 1 applic DAILY YONY Administration Duloxetine HCl 60 mg 10/16/24 15:49 10/20/24 08:27 Duloxetine 60 Mg Capsule PO 60 mg DAILY YONY Administration Ferrous Sulfate 325 mg 10/17/24 08:00 10/20/24 08:26 Ferrous Sulfate 325 Mg Tablet PO 325 mg DAILYWM YONY Administration Furosemide 20 mg 10/17/24 09:00 10/20/24 08:27 Furosemide 20 Mg Tablet PO 20 mg DAILY YONY Administration Vancomycin HCl 1 gm/ 500 mls @ 250 mls/hr 10/19/24 16:00 10/19/24 18:31 Vancomycin HCl 500 mg/ Sodium IV Infused Chloride Q24H YONY Infusion Insulin Human Lispro 3 - 11 unit 10/20/24 08:00 10/20/24 08:26 Insulin Lispro 300 Unit/3 Ml Pen SUBQ 3 unit 0800,1200,1700,2100 YONY Administration Protocol Isosorbide Mononitrate 30 mg 10/16/24 15:49 10/20/24 08:27 Isosorbide Mononitrate Er 30 Mg Tablet PO 30 mg DAILY YONY Administration Magnesium Oxide 400 mg 10/17/24 10:54 10/20/24 08:27 Magnesium Oxide 400 Mg Tablet PO 400 mg BID YONY Administration Nitroglycerin 0.4 mg 10/16/24 15:49 Nitroglycerin Sl 0.4 Mg Tablet SL Q5M PRN chest pain Nystatin 5 ml 10/18/24 17:00 10/20/24 08:28 Nystatin 166395 Units/5 Ml Udc PO 5 ml QID YONY Administration Ondansetron HCl 4 mg 10/16/24 15:49 Ondansetron Odt 4 Mg Tablet TL Q6HR PRN Nausea / Vomiting Oxycodone HCl 5 mg 10/17/24 11:11 10/17/24 11:30 Oxycodone 5 Mg Tablet PO 5 mg Q4HR PRN Administration Moderate Pain (Level 4-6) Pantoprazole Sodium 40 mg 10/16/24 15:49 10/20/24 08:28 Pantoprazole 40 Mg Tablet PO 40 mg DAILY YONY Administration Prazosin HCl 1 mg 10/16/24 21:00 10/19/24 21:30 Prazosin 1 Mg Capsule PO 1 mg QPM YONY Administration Prednisone 5 mg 10/17/24 09:00 10/20/24 08:27 Prednisone 5 Mg Tablet PO 5 mg DAILY YONY Administration Multivit/Folic Acid/Iron 1 tab 10/17/24 08:00 10/20/24 08:27 Vitamin Tablet PO 1 tab DAILYWM YONY Administration Sodium Chloride 10 ml 10/16/24 15:49 Sodium Chloride Flush 0.9% 10 Ml Syringe IVP PRN PRN NEEDED PER PROVIDER ORDERS Sodium Chloride 10 ml 10/16/24 17:00 10/20/24 08:28 Sodium Chloride Flush 0.9% 10 Ml Syringe IVP 10 ml 0100,0900,1700 YONY Administration Valacyclovir HCl 500 mg 10/16/24 15:49 10/20/24 08:28 Valacyclovir 500 Mg Tablet PO 500 mg DAILY YONY Administration Objective Vital Signs/Intake & Output Reviewed Vital Signs: Yes Vital Signs: Vital Signs x48h Temp Pulse Resp BP BP Pulse Ox O2 Flow Rate 10/20/24 08:22 94 130/69 10/20/24 08:15 98.4 F 77 20 108/68 99 2 Intake & Output: Intake & Output 10/17/24 10/18/24 10/19/24 10/20/24 23:59 23:59 23:59 23:59 Intake Total 0 / 0 1690 / 1690 1950 / 1950 410 / 410 Output Total 2049 1300 / 1300 1500 / 1500 Balance -120 / -120 390 / 390 450 / 450 410 / 410 Objective General Appearance: positive No acute distress and Alert Eyes Bilateral: positive Normal inspection, PERRL and EOMI ENT: positive ENT inspection nml Neck: positive Nml inspection Respiratory: positive Chest non-tender and No respiratory distress Cardiovascular: positive Irregularly irregular Abdomen: positive Non-tender Back: positive Nml inspection; negative CVA tenderness (R) or CVA tenderness (L) Skin: positive Color nml and Other (LLE with extensive ulceration with white granulation tissue noted; some erythema around wounds) Extremities: positive Other (R hand erythema, edema, and tenderness. Improved from yesterday. Pain continues to extend 2-3 inches up forearm. ) Neurologic/Psychiatric: positive Oriented x3, CN's nml (2-12), Motor nml, Sensation nml and Mood/affect nml Lab Results 10/20/24 04:19 10/20/24 04:19 Other Labs: Lab Results x24hrs 10/20/24 10/20/24 10/19/24 Range/Units 08:00 04:19 21:27 WBC 15.9 H (4.8-10.8) x10^3/uL RBC 3.53 L (4.20-5.40) 10^6/uL Hgb 11.6 L (12.0-16.0) g/dL Hct 36.6 L (37.0-47.0) % MCV 103.7 H (81.0-99.0) fL MCH 32.9 H (27.0-31.0) pg MCHC 31.7 L (32.0-36.0) g/dL RDW 15.1 H (12.0-15.0) % Plt Count 256 (130-450) 10^3/uL MPV 10.6 (7.9-10.8) fL Sodium 134 L (135-145) mmol/L Potassium 4.3 (3.5-4.5) mmol/L Chloride 98 L (101-111) mmol/L Carbon Dioxide 32 (21-32) mmol/L Anion Gap 4.0 L (6-13) BUN 44 H (6-20) mg/dL Creatinine 0.5 L (0.6-1.3) mg/dL Estimated GFR (MDRD) 119 (>89) Glucose 218 H (74-104) mg/dL POC Whole Bld Glucose 177 245 (70-100) mg/dL Calcium 9.6 (8.5-10.3) mg/dL Magnesium 2.0 (1.7-2.3) mg/dL Last Dose Date Last Dose Time Vancomycin Trough ug/mL 10/19/24 10/19/24 10/19/24 Range/Units 16:47 11:26 10:47 WBC (4.8-10.8) x10^3/uL RBC (4.20-5.40) 10^6/uL Hgb (12.0-16.0) g/dL Hct (37.0-47.0) % MCV (81.0-99.0) fL MCH (27.0-31.0) pg MCHC (32.0-36.0) g/dL RDW (12.0-15.0) % Plt Count (130-450) 10^3/uL MPV (7.9-10.8) fL Sodium (135-145) mmol/L Potassium (3.5-4.5) mmol/L Chloride (101-111) mmol/L Carbon Dioxide (21-32) mmol/L Anion Gap (6-13) BUN (6-20) mg/dL Creatinine (0.6-1.3) mg/dL Estimated GFR (MDRD) (>89) Glucose (74-104) mg/dL POC Whole Bld Glucose 271 282 (70-100) mg/dL Calcium (8.5-10.3) mg/dL Magnesium (1.7-2.3) mg/dL Last Dose Date 10-19-24 Last Dose Time 01:01 Vancomycin Trough 21.7 ug/mL Diagnostic Imaging Diagnostic Imaging Results: positive Final report reviewed Sepsis Event Note (H) Evaluation Current Stage of Sepsis: Sepsis Possible source of Sepsis: positive Skin/soft tissue Sepsis Criteria Sepsis Criteria: Recorded Temperature greater than 38.3C or Less than 36C, WBC count greater than 10% bands and WBC count greater than 12,000 or less than 4000 Assessment/Plan Problem List (1) Sepsis: Impression: Patient with leukocytosis, febrile at home. Source of wound is left lower extremity chronic wound. Continue cefepime and vancomycin at this time. Will monitor for drug toxicity with vancomycin trough levels. Will require 7 days of IV antibiotic therapy, and 7 days of oral antibiotic therapy. ESR and CRP within normal limits. Less concern for osteomyelitis at this time. Attempted to reach out to patient's wound care doctor, Dr. Thomas, for further assistance - he is on vacation but his partner was spoken with. They have not been debriding this wound. Plan is for biopsy with dermatology this 10/19/24; rescheduled. Qualifiers: Sepsis acute organ dysfunction status: without acute organ dysfunction Sepsis type: sepsis due to unspecified organism Qualified Code(s): A41.9 - Sepsis, unspecified organism (2) Leukocytosis: Impression: Management as above. Blood cultures, no growth to date. Qualifiers: Leukocytosis type: unspecified Qualified Code(s): D72.829 - Elevated white blood cell count, unspecified (3) Acute hypokalemia: Impression: Repleted, continue to trend. (4) Atrial fibrillation with controlled ventricular rate: Impression: Patient is not on any rate control medications at this time. Recently started on Eliquis approximately 10 days ago by test desk operator, his notes were reviewed. Continued inpatient. Will hold if plans for surgical procedure. (5) PVD (peripheral vascular disease): Impression: Chronic condition, stable. Chronic wounds of left lower extremity. Outpatient wound care doctor is considering skin grafts. (6) GERD (gastroesophageal reflux disease): Impression: Continue Protonix. Qualifiers: Esophagitis presence: without esophagitis Qualified Code(s): K21.9 - Gastro-esophageal reflux disease without esophagitis (7) Hyperlipidemia: Impression: Continue statin. Qualifiers: Hyperlipidemia type: unspecified Qualified Code(s): E78.5 - Hyperlipidemia, unspecified (8) Interstitial pulmonary fibrosis: Impression: Chronic. On 2L of oxygen at home, continue at this time. Has history of pulmonary hypertension with this. Was on CellCept previously, currently held as she gets worked up for her left lower extremity ulcers. On a prednisone taper; continue at this time. (9) Diastolic heart failure: Impression: Compensated at this time. Continue Lasix. Qualifiers: Heart failure chronicity: chronic Qualified Code(s): I50.32 - Chronic diastolic (congestive) heart failure (10) Mixed connective tissue disease: Impression: Patient has been on immunosuppresants in the past. Stable. Continue to monitor.
[2024-10-20] MEDS: NYSTATIN 500000 UNITS/5 ML UDC PO SCH (16:42)
[2024-10-21 08:12] LABS: HCT - HEMATOCRIT 35.1 % (37.0-47.0); HGB - HEMOGLOBIN 11.1 g/dL (12.0-16.0); MEAN CORPUSCULAR HEMOGLOBIN 32.8 pg (27.0-31.0); MEAN CORPUSCULAR HGB CONC 31.6 g/dL (32.0-36.0); MEAN CORPUSCULAR VOLUME 103.8 fL (81.0-99.0); MEAN PLATELET VOLUME 10.5 fL (7.9-10.8); RED BLOOD COUNT 3.38 10^6/uL (4.20-5.40); RED CELL DISTRIBUTION WIDTH 15.3 % (12.0-15.0); WHITE BLOOD COUNT 12.7 x10^3/uL (4.8-10.8)
[2024-10-21 08:25] LABS: CALCIUM 9.8 mg/dL (8.5-10.3); CREATININE 0.5 mg/dL (0.6-1.3); POTASSIUM 4.5 mmol/L (3.5-4.5)
--- NOTE | 2024-10-21 09:42 | PROVIDER PROGRESS NOTE ---
Subjective Subjective Subjective: Madelin feels about the same today. She has chronic pain over the left lower extremity, especially with movement. She denies any fevers or chills. She has a good appetite. Juan Carlos, the RN, helped her reschedule her Dermatology appointment and biopsy. Current Medications Current Medications Current Medications: Current Medications Generic Name Dose Route Start Last Admin Trade Name Robertq PRN Reason Stop Dose Admin Acetaminophen 650 mg 10/16/24 15:49 10/19/24 00:17 Acetaminophen 325 Mg Tablet PO 650 mg Q4HR PRN Administration Pain 1 to 4, or Fever Apixaban 2.5 mg 10/16/24 21:00 10/21/24 08:43 Apixaban 2.5 Mg Tablet PO 2.5 mg BID YONY Administration Ascorbic Acid 500 mg 10/16/24 15:49 10/21/24 08:45 Ascorbic Acid 500 Mg Tablet PO 500 mg DAILY YONY Administration Aspirin 162 mg 10/16/24 15:49 10/21/24 08:44 Aspirin Ec 81 Mg Tablet PO 162 mg DAILY YONY Administration Atorvastatin Calcium 20 mg 10/16/24 21:00 10/20/24 21:41 Atorvastatin 10 Mg Tablet PO 20 mg QPM YONY Administration Calcium Carbonate/Glycine 500 mg 10/17/24 09:00 10/21/24 08:44 Calcium Carb (Oyster Shell) 500 Mg Tablet PO 500 mg DAILY YONY Administration Carvedilol 6.25 mg 10/16/24 21:00 10/21/24 08:44 Carvedilol 3.125 Mg Tablet PO 6.25 mg BID YONY Administration Cefepime HCl 2 gm 10/16/24 22:00 10/20/24 21:48 Cefepime 2 Gm Vial IVP 2 gm Q12H YONY Administration Cholecalciferol 25 mcg 10/16/24 15:49 10/21/24 08:45 Cholecalciferol 25 Mcg Tablet PO 25 mcg DAILY YONY Administration Clobetasol Propionate 1 applic 10/17/24 12:00 10/21/24 08:45 Clobetasol 0.05% Oint 15 Gm Tube TOP 1 applic DAILY YONY Administration Duloxetine HCl 60 mg 10/16/24 15:49 10/21/24 08:43 Duloxetine 60 Mg Capsule PO 60 mg DAILY YONY Administration Ferrous Sulfate 325 mg 10/17/24 08:00 10/21/24 08:44 Ferrous Sulfate 325 Mg Tablet PO 325 mg DAILYWM YONY Administration Furosemide 20 mg 10/17/24 09:00 10/21/24 08:44 Furosemide 20 Mg Tablet PO 20 mg DAILY YONY Administration Vancomycin HCl 1 gm/ 500 mls @ 250 mls/hr 10/19/24 16:00 10/20/24 23:41 Vancomycin HCl 500 mg/ Sodium IV Infused Chloride Q24H YONY Infusion Insulin Human Lispro 3 - 11 unit 10/20/24 08:00 10/21/24 08:46 Insulin Lispro 300 Unit/3 Ml Pen SUBQ 5 unit 0800,1200,1700,2100 YONY Administration Protocol Isosorbide Mononitrate 30 mg 10/16/24 15:49 10/21/24 08:44 Isosorbide Mononitrate Er 30 Mg Tablet PO 30 mg DAILY YONY Administration Magnesium Oxide 400 mg 10/17/24 10:54 10/21/24 08:45 Magnesium Oxide 400 Mg Tablet PO 400 mg BID YONY Administration Nitroglycerin 0.4 mg 10/16/24 15:49 Nitroglycerin Sl 0.4 Mg Tablet SL Q5M PRN chest pain Nystatin 5 ml 10/20/24 16:00 10/21/24 08:44 Nystatin 087554 Units/5 Ml Udc PO 5 ml QID YONY Administration Ondansetron HCl 4 mg 10/16/24 15:49 Ondansetron Odt 4 Mg Tablet TL Q6HR PRN Nausea / Vomiting Oxycodone HCl 5 mg 10/17/24 11:11 10/17/24 11:30 Oxycodone 5 Mg Tablet PO 5 mg Q4HR PRN Administration Moderate Pain (Level 4-6) Pantoprazole Sodium 40 mg 10/16/24 15:49 10/21/24 08:44 Pantoprazole 40 Mg Tablet PO 40 mg DAILY YONY Administration Prazosin HCl 1 mg 10/16/24 21:00 10/20/24 21:42 Prazosin 1 Mg Capsule PO 1 mg QPM YONY Administration Prednisone 5 mg 10/17/24 09:00 10/21/24 08:44 Prednisone 5 Mg Tablet PO 5 mg DAILY YONY Administration Multivit/Folic Acid/Iron 1 tab 10/17/24 08:00 10/21/24 08:45 Vitamin Tablet PO 1 tab DAILYWM [facility] Administration Sodium Chloride 10 ml 10/16/24 15:49 Sodium Chloride Flush 0.9% 10 Ml Syringe IVP PRN PRN NEEDED PER PROVIDER ORDERS Sodium Chloride 10 ml 10/16/24 17:00 10/21/24 08:45 Sodium Chloride Flush 0.9% 10 Ml Syringe IVP 10 ml 0100,0900,1700 YONY Administration Valacyclovir HCl 500 mg 10/16/24 15:49 10/21/24 08:43 Valacyclovir 500 Mg Tablet PO 500 mg DAILY YONY Administration Objective Vital Signs/Intake & Output Reviewed Vital Signs: Yes Vital Signs: Vital Signs x48h Temp Pulse Resp BP BP Pulse Ox O2 Flow Rate 10/20/24 08:22 94 130/69 10/20/24 08:15 98.4 F 77 20 108/68 99 2 Intake & Output: Intake & Output 10/18/24 10/19/24 10/20/24 10/21/24 23:59 23:59 23:59 23:59 Intake Total 1690 / 1690 1950 / 1950 2357 / 2357 50 / 50 Output Total 1300 / 1300 1500 / 1500 1550 / 1550 200 / 200 Balance 390 / 390 450 / 450 807 / 807 -150 / -150 Objective General Appearance: positive No acute distress and Alert Eyes Bilateral: positive Normal inspection, PERRL and EOMI ENT: positive ENT inspection nml Neck: positive Nml inspection Respiratory: positive Chest non-tender and No respiratory distress Cardiovascular: positive Irregularly irregular Abdomen: positive Non-tender Back: positive Nml inspection; negative CVA tenderness (R) or CVA tenderness (L) Skin: positive Color nml and Other (LLE with extensive ulceration with white granulation tissue noted; some erythema around wounds) Extremities: positive Other (R hand erythema, edema, and tenderness. Improved from yesterday. Pain continues to extend 2-3 inches up forearm. ) Neurologic/Psychiatric: positive Oriented x3, CN's nml (2-12), Motor nml, Sensation nml and Mood/affect nml Lab Results 10/21/24 08:00 10/21/24 08:00 Other Labs: Lab Results x24hrs 10/21/24 10/21/24 10/20/24 Range/Units 08:07 08:00 20:38 WBC 12.7 H (4.8-10.8) x10^3/uL RBC 3.38 L (4.20-5.40) 10^6/uL Hgb 11.1 L (12.0-16.0) g/dL Hct 35.1 L (37.0-47.0) % MCV 103.8 H (81.0-99.0) fL MCH 32.8 H (27.0-31.0) pg MCHC 31.6 L (32.0-36.0) g/dL RDW 15.3 H (12.0-15.0) % Plt Count 243 (130-450) 10^3/uL MPV 10.5 (7.9-10.8) fL Sodium 137 (135-145) mmol/L Potassium 4.5 (3.5-4.5) mmol/L Chloride 99 L (101-111) mmol/L Carbon Dioxide 35 H (21-32) mmol/L Anion Gap 3.0 L (6-13) BUN 42 H (6-20) mg/dL Creatinine 0.5 L (0.6-1.3) mg/dL Estimated GFR (MDRD) 119 (>89) Glucose 225 H (74-104) mg/dL POC Whole Bld Glucose 212 236 (70-100) mg/dL Calcium 9.8 (8.5-10.3) mg/dL 10/20/24 10/20/24 Range/Units 16:57 11:48 WBC (4.8-10.8) x10^3/uL RBC (4.20-5.40) 10^6/uL Hgb (12.0-16.0) g/dL Hct (37.0-47.0) % MCV (81.0-99.0) fL MCH (27.0-31.0) pg MCHC (32.0-36.0) g/dL RDW (12.0-15.0) % Plt Count (130-450) 10^3/uL MPV (7.9-10.8) fL Sodium (135-145) mmol/L Potassium (3.5-4.5) mmol/L Chloride (101-111) mmol/L Carbon Dioxide (21-32) mmol/L Anion Gap (6-13) BUN (6-20) mg/dL Creatinine (0.6-1.3) mg/dL Estimated GFR (MDRD) (>89) Glucose (74-104) mg/dL POC Whole Bld Glucose 282 219 (70-100) mg/dL Calcium (8.5-10.3) mg/dL Diagnostic Imaging Diagnostic Imaging Results: positive Final report reviewed Sepsis Event Note (H) Evaluation Current Stage of Sepsis: Sepsis Possible source of Sepsis: positive Skin/soft tissue Sepsis Criteria Sepsis Criteria: Recorded Temperature greater than 38.3C or Less than 36C, WBC count greater than 10% bands and WBC count greater than 12,000 or less than 4000 Assessment/Plan Problem List (1) Sepsis: Impression: Patient with leukocytosis, febrile at home. Source of wound is left lower extremity chronic wound. Continue cefepime and vancomycin at this time. Will monitor for drug toxicity with vancomycin trough levels. Will require 7 days of IV antibiotic therapy (today is day 7), and 7 days of oral antibiotic therapy. ESR and CRP within normal limits. Less concern for osteomyelitis at this time. Attempted to reach out to patient's wound care doctor, Dr. Thomas, for further assistance - he is on vacation but his partner was spoken with. They have not been debriding this wound. Plan is for biopsy with dermatology this 10/19/24; rescheduled. Qualifiers: Sepsis acute organ dysfunction status: without acute organ dysfunction Sepsis type: sepsis due to unspecified organism Qualified Code(s): A41.9 - Sepsis, unspecified organism (2) Leukocytosis: Impression: Management as above. Blood cultures, no growth to date. Improving. Qualifiers: Leukocytosis type: unspecified Qualified Code(s): D72.829 - Elevated white blood cell count, unspecified (3) Acute hypokalemia: Impression: Repleted, continue to trend. (4) Atrial fibrillation with controlled ventricular rate: Impression: Patient is not on any rate control medications at this time. Recently started on Eliquis approximately 10 days ago by terrazzo polisher, his notes were reviewed. Continued inpatient. Will hold if plans for surgical procedure. (5) PVD (peripheral vascular disease): Impression: Chronic condition, stable. Chronic wounds of left lower extremity. Outpatient wound care doctor is considering skin grafts. (6) GERD (gastroesophageal reflux disease): Impression: Continue Protonix. Qualifiers: Esophagitis presence: without esophagitis Qualified Code(s): K21.9 - Gastro-esophageal reflux disease without esophagitis (7) Hyperlipidemia: Impression: Continue statin. Qualifiers: Hyperlipidemia type: unspecified Qualified Code(s): E78.5 - Hyperlipidemia, unspecified (8) Interstitial pulmonary fibrosis: Impression: Chronic. On 2L of oxygen at home, continue at this time. Has history of pulmonary hypertension with this. Was on CellCept previously, currently held as she gets worked up for her left lower extremity ulcers. On a prednisone taper; continue at this time. (9) Diastolic heart failure: Impression: Compensated at this time. Continue Lasix. Qualifiers: Heart failure chronicity: chronic Qualified Code(s): I50.32 - Chronic diastolic (congestive) heart failure (10) Mixed connective tissue disease: Impression: Patient has been on immunosuppresants in the past. Stable. Continue to monitor.
[2024-10-22 04:51] LABS: HCT - HEMATOCRIT 35.9 % (37.0-47.0); HGB - HEMOGLOBIN 11.1 g/dL (12.0-16.0); MEAN CORPUSCULAR HGB CONC 30.9 g/dL (32.0-36.0); MEAN CORPUSCULAR VOLUME 106.8 fL (81.0-99.0); RED BLOOD COUNT 3.36 10^6/uL (4.20-5.40); RED CELL DISTRIBUTION WIDTH 15.4 % (12.0-15.0); WHITE BLOOD COUNT 13.9 x10^3/uL (4.8-10.8)
[2024-10-22 05:07] LABS: CALCIUM 9.2 mg/dL (8.5-10.3); CREATININE 0.6 mg/dL (0.6-1.3); POTASSIUM 4.5 mmol/L (3.5-4.5)
[2024-10-22 08:30] VITALS: BP 97/64; TEMP 97.9; O2SAT 97
[2024-10-22] MEDS: ZINC SULFATE 220 MG CAPSULE PO SCH (11:38)
--- NOTE | 2024-10-22 12:30 | Discharge Summary ---
"Discharge Summary Admit Date: 10/16/24 Discharge Date: 10/22/24 Discharging Provider: Dr. Estrella Gates Primary Care Provider: Melba Gallagher Code Status: Attempt Resuscitation Discharge Facility Name: [facility] DIAGNOSES Admission Diagnoses: Sepsis Leukocytosis Hypokalemia Atrial fibrillation with controlled ventricular rate Peripheral vascular disease GERD Hyperlipidemia Interstitial pulmonary fibrosis Diastolic heart failure Mixed connective tissue disease Discharge Diagnoses with Status of Each Condition: Sepsispatient with leukocytosis, febrile at home. Source is left lower extremity wound. Resolved. Completed 7 days of cefepime and vancomycin. Wound culture grew MRSA. Will send home with 7 more days of oral antibiotic therapy. Follow-up with wound care, dermatology in outpatient setting. Leukocytosisresolving. Please recheck CBC in 1 to 2 weeks. Hypokalemiaresolved, continue daily supplementation. Atrial fibrillation with controlled ventricular ratecontinue home medications. Peripheral vascular diseasestable. GERDcontinue Protonix. Hyperlipidemiacontinue statin. Interstitial pulmonary fibrosischronic, on 2 L of oxygen at home. On prednisone, continued at this time. Diastolic heart failurecompensated well, continue Lasix. Mixed connective tissue diseasepatient has been on immunosuppressives in the past, stable at this time. HPI History of Present Illness: Patient is a 78-year-old female with a history of diastolic heart failure, venous insufficiency with chronic wounds of the left lower extremity including Pseudomonas, interstitial lung disease on 2 L at baseline who presents due to high white count. She saw her primary care provider, Melba Gallagher, yesterday. It was primarily for the nonhealing venous stasis ulcers of the left lower extremity. The wound has continued to increase in size. Biopsy shows lipodermatosclerosis. Labs were drawn and leukocytosis was noted. Since discharge last week, she has been feeling increasingly fatigued. Patient was admitted from 10/05 to 10/10 for right hand cellulitis. She had appropriate response to IV antibiotics, and was transition to orals. She was followed by orthopedics while inpatient without need for surgical intervention. Her leukocytosis resolved. All her chronic conditions were stable at that time. She was discharged home with home PT/OT. Patient lives at home with her . She is usually wheelchair-bound due to her numerous back surgeries. She occasionally uses a walker and cane. 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 CONSULTS | PROCEDURES Consultations: Physical therapy, Occupational Therapy, social work Procedures: Tibia/fibula x-ray, foot x-ray HOSPITAL COURSE Hospital Course: Patient is a 78-year-old female with a history of chronic wounds on her left lower leg, interstitial fibrosis previously on immunosuppressive, diabetes mellitus who presented with leukocytosis as told by her primary care provider to her, as well as fevers and chills at home. She was treated with vancomycin and cefepime for broad coverage as she has grown MRSA and Pseudomonas with those left lower extremity wounds in the past. She received a 7-day course of IV antibiotics, with decrease in her leukocytosis count. Her wound cultures grew MRSA. She will receive an extended course for 7 more days. Will be discharging her home with Bactrim twice a day. I did speak with her wound care clinic, and they are waiting for a biopsy from her supervisory clerk. She had to have this rescheduled, as it was scheduled for when she was hospitalized. Physical therapy and Occupational Therapy worked with her, and recommended half-way facility for further rehab and strengthening before going home. She was agreeable to this. While she was here, she was found to have elevated glucose, and her A1c was found to be 7.3%. We talked about how I will be discharging her on metformin, and to follow-up with a primary care provider in the outpatient setting for follow-up on this. ALLERGIES Allergies Allergy/AdvReac Type Severity Reaction Status Date / Time iodine Allergy Severe Rash Verified 10/05/24 04:05 isoniazid Allergy Severe Rash Verified 10/05/24 04:05 zolpidem (From Ambien) Allergy Severe Hallucinati Verified 10/05/24 04:05 ons adhesive tape Allergy Intermediate Rash Verified 09/05/24 15:32 artichoke Allergy Unknown Verified 10/05/24 04:05 pregabalin (From Lyrica) Allergy muscle Verified 10/05/24 04:05 spasms NSAIDS (Non-Steroidal AdvReac Intermediate abd pain Verified 10/05/24 04:05 Anti-Inflamma cantaloupe AdvReac Mild abdomen Verified 10/05/24 04:05 swells, makes her miserable. amitriptyline AdvReac Hallucinati Verified 09/05/24 15:32 ons fentanyl AdvReac Hallucinati Verified 10/05/24 04:05 ons gabapentin AdvReac Hallucinati Verified 10/05/24 04:05 ons MEDICATIONS Ambulatory Orders Medication Instructions Recorded Confirmed atorvastatin 20 mg tablet (Lipitor) 20 mg PO QPM 06/05/24 10/16/24 carvedilol 6.25 mg tablet (Coreg) 6.25 mg PO BID 06/05/24 10/16/24 dronedarone 400 mg tablet (Multaq) 400 mg PO BID 06/05/24 10/16/24 duloxetine 60 mg capsule,delayed 60 mg PO QDAY 06/05/24 10/16/24 release (Cymbalta) estradiol 0.01% (0.1 mg/gram) 0.5 - 1 g topical QWEEK 06/05/24 10/16/24 vaginal cream ferrous sulfate 142 mg (45 mg 142 mg PO QDAY 06/05/24 10/16/24 iron) tablet,extended release (Slow Fe) glycerin (adult) 1 supp AL QDAY PRN constipation 06/05/24 10/16/24 hydromorphone (PF) 10 mg/mL 3.3 mg epidural DAILY 06/05/24 10/16/24 injection solution isosorbide mononitrate 30 mg 30 mg PO QDAY 06/05/24 10/16/24 tablet,extended release 24 hr multivitamin-ferrous 1 tab PO QDAY 06/05/24 10/16/24 fumarate-folic acid 18 mg-400 mcg tablet (One Daily Multivitamin with Iron (folic acid)) mycophenolate mofetil 500 mg 1,000 mg PO BID 06/05/24 10/16/24 tablet (CellCept) nitroglycerin 0.4 mg sublingual 0.4 mg sublingual Q5M PRN chest 06/05/24 10/16/24 tablet pain pantoprazole 40 mg tablet,delayed 40 mg PO QDAY 06/05/24 10/16/24 release valacyclovir 500 mg tablet 500 mg PO QDAY #90 tabs 06/06/24 10/16/24 magnesium 250 mg tablet 250 mg PO BID #30 tabs 08/03/24 10/16/24 clobetasol 0.05 % topical ointment See Rx Instructions .Route 08/10/24 10/16/24 .COMPLEX #60 grams prednisone 5 mg tablet 5 mg PO DAILY 08/10/24 10/16/24 ondansetron 4 mg disintegrating 4 mg PO Q8H PRN nausea and 08/30/24 10/16/24 tablet vomiting #60 tabs apixaban 2.5 mg tablet (Eliquis) 2.5 mg PO BID 10/05/24 10/16/24 nystatin 100,000 unit/mL oral 1 ml buccal DAILY thrush #60 mL 10/10/24 10/16/24 suspension acetaminophen 500 mg capsule 500 mg PO Q4H PRN pain 10/16/24 10/16/24 furosemide 20 mg tablet 20 mg PO DAILY PRN edema 10/16/24 10/16/24 nystatin 100,000 unit/gram topical 1 applic topical BID PRN infection 10/16/24 10/16/24 powder potassium chloride 10 mEq 10 meq PO BID 10/16/24 10/16/24 tablet,extended release metformin 500 mg tablet 500 mg PO BID #60 tabs 10/22/24 sulfamethoxazole 400 1 tab PO BID 7 days #14 tabs 10/22/24 mg-trimethoprim 80 mg tablet (Bactrim) zinc sulfate 50 mg zinc (220 mg) 220 mg (4.4 x 50 mg zinc (220 mg)) 10/22/24 capsule PO DAILY 14 days #14 caps PHYSICAL EXAM AT DISCHARGE General Appearance: positive No acute distress and Alert; negative Anxious Eyes Bilateral: positive Normal inspection, PERRL and EOMI ENT: positive ENT inspection nml, Pharynx nml and No signs of dehydration Neck: positive Nml inspection, Thyroid nml and No JVD Respiratory: positive Chest non-tender, No respiratory distress and Breath sounds nml; negative Wheezes, Rales or Rhonchi Cardiovascular: positive No murmur and Irregularly irregular; negative Systolic murmur, Diastolic murmur or Gallop/S3 Peripheral Pulses: positive 2+ Abdomen: positive Non-tender and No distention; negative Rebound, Hepatomegaly, Splenomegaly or Mass Back: positive Nml inspection; negative CVA tenderness (R) or CVA tenderness (L) Skin: positive Color nml and Other (LLE with chronic wounds; multiple with green/yellow granulation tissue noted; some erythema noted around wounds, improved) Extremities: positive Non-tender, Full ROM and No pedal edema Neurologic/Psychiatric: positive Oriented x3, Sensation nml and Mood/affect nml LABS 10/22/24 04:22 10/22/24 04:22 DIAGNOSTIC IMAGING Diagnostic Imaging Results: Final report reviewed SEPSIS Current Stage of Sepsis: Resolved Possible source of Sepsis: Skin/soft tissue Sepsis Criteria: Recorded Temperature greater than 38.3C or Less than 36C, WBC count greater than 10% bands and WBC count greater than 12,000 or less than 4000 FOLLOW UP Follow Up: Follow up with dermatology. Follow up with wound care doctor. Follow up with primary care provider. TIME SPENT Time Spent in Discharge (Minutes): 35 Discharge Plan Discharge Patient Disposition: 03 [facility] DC/Xfer Condition: Good Prescriptions: New zinc sulfate 50 mg zinc (220 mg) Capsule 220 mg PO DAILY 14 Days Qty: 14 0RF sulfamethoxazole-trimethoprim [Bactrim] 400-80 mg tablet 1 tab PO BID 7 Days Qty: 14 0RF metformin 500 mg tablet 500 mg PO BID Qty: 60 0RF Continued valacyclovir 500 mg tablet 500 mg PO QDAY Qty: 90 1RF Rx Instructions: Take 1 tablet by mouth once a day ondansetron 4 mg tablet,disintegrating 4 mg PO Q8H PRN (Reason: nausea and vomiting) Qty: 60 1RF Rx Instructions: Take 1 tablet by mouth every eight hours as needed for nausea and vomiting atorvastatin [Lipitor] 20 mg tablet 20 mg PO QPM Rx Instructions: Take 1 tablet by mouth once a day mycophenolate mofetil [CellCept] 500 mg tablet 1,000 mg PO BID Patient Comments: patient states she's not taking- but script is recent. Rx Instructions: Take 2 tablet by mouth twice a day duloxetine [Cymbalta] 60 mg capsule,delayed release(DR/EC) 60 mg PO QDAY Rx Instructions: Take 1 capsule by mouth once a day Multaq 400 mg tablet 400 mg PO BID Rx Instructions: Take 1 tablet by mouth twice a day isosorbide mononitrate 30 mg tablet extended release 24 hr 30 mg PO QDAY Rx Instructions: Take 1 tablet by mouth once a day carvedilol [Coreg] 6.25 mg tablet 6.25 mg PO BID Rx Instructions: Take 1 tablet by mouth twice a day ferrous sulfate [Slow Fe] 142 mg (45 mg iron) tablet extended release 142 mg PO QDAY Rx Instructions: Take 1 tablet by mouth once a day estradiol 0.01 % (0.1 mg/gram) cream 0.5 - 1 g topical QWEEK Rx Instructions: Apply 1/2 to 1 gram to vaginal opening 2-3 times per week prednisone 5 mg tablet 5 mg PO DAILY clobetasol 0.05 % ointment See Rx Instructions .Route .COMPLEX Qty: 60 1RF Rx Instructions: Apply a generous amount onto the open wound QHS. After application, occlude the wound with plastic wrap (e.g., Saran wrap) to enhance absorption. Remove the occlusive wrap after 12 hours and clean and dress the wound as usual qAM as directed with Aquacel Ag, ABD, OptiLock, and roll gauze. Discontinue if signs of irritation, infection, or wound enlargement occur and consult your physician promptly. magnesium 250 mg tablet 250 mg PO BID Qty: 30 0RF Eliquis 2.5 mg tablet 2.5 mg PO BID nystatin 100,000 unit/mL suspension 1 ml buccal DAILY Qty: 60 0RF Rx Instructions: administer 1/2 of dose in each side of the mouth potassium chloride 10 mEq tablet extended release 10 meq PO BID acetaminophen 500 mg capsule 500 mg PO Q4H PRN (Reason: pain) furosemide 20 mg tablet 20 mg PO DAILY PRN (Reason: edema) Patient Comments: PRN nystatin 100,000 unit/gram powder 1 applic topical BID PRN (Reason: infection) Rx Instructions: Apply liberally to skin twice a day until symptoms resolve glycerin (adult) Suppository 1 supp AL QDAY PRN (Reason: constipation) Rx Instructions: Insert 1 suppository rectally once a day as needed hydromorphone (PF) 10 mg/mL solution 3.3 mg epidural DAILY Patient Comments: by pump Rx Instructions: 3.3 mg INTRATHECALLY DAILY VIA PUMP One Daily Multivit-Iron(folic) 18-400 mg-mcg tablet 1 tab PO QDAY Rx Instructions: Take 1 tablet by mouth once a day nitroglycerin 0.4 mg tablet, sublingual 0.4 mg sublingual Q5M PRN (Reason: chest pain) Rx Instructions: Take 1 tablet under tongue as needed at onset of chest pain. Repeat every 5 minutes for 3 doses or until symptoms resolve. all 911 if not resolved after 3rd dose. pantoprazole 40 mg tablet,delayed release (DR/EC) 40 mg PO QDAY Rx Instructions: Take 1 tablet by mouth once a day Activity Restrictions: Activity as Tolerated Diet: Diabetic Health Concerns: You came in because you had an elevated white count. You have chronic wounds in her left lower leg, and I think this is why your white count has been so elevated. You completed 7 days of IV antibiotics while you are here. I will be sending you home with 7 more days of oral antibiotics to complete your course. Please recheck your labs in about 1 to 2 weeks. Please follow-up with the dermatology to complete the biopsy, as well as with your wound care doctor to continue treatment for these wounds. While you were here, you are found to have an elevated hemoglobin A1c, which indicates that you have diabetes. This may be related to your steroid use, which causes sugars to be high. I would like to start you on metformin, a medication to help you with this. Please follow-up with your primary care provider in the next few weeks to reassess need for more or less medication in regards to this. We are glad you are feeling better, we hope that your rehab stay will help you feel stronger prior to getting home. Thank you for let us take care of you. Print Language: Croatian Patient Instructions: ED Wound Care Stand Alone Forms: SNF Discharge, PCP List Follow-up Care: Melba Gallagher ARNP [Primary Care Provider] -"
== END 2024-10-22 14:45 | DRG 872 ==
LOC: ED 11:18 → MS3 14:52
PROVIDERS: ADMIT Internal Medicine; ATTEND Internal Medicine
DX: E78.5 Hyperlipidemia, unspecified; K21.9 Gastro-esophageal reflux disease without esophagitis; E87.6 Hypokalemia; A41.9 Sepsis, unspecified organism; Z79.4 Long term (current) use of insulin; L97.929 Non-pressure chronic ulcer of unspecified part of left lower leg with unspecified severity; J84.10 Pulmonary fibrosis, unspecified; G89.29 Other chronic pain; I48.91 Unspecified atrial fibrillation; Z87.891 Personal history of nicotine dependence; A41.02 Sepsis due to Methicillin resistant Staphylococcus aureus; E11.51 Type 2 diabetes mellitus with diabetic peripheral angiopathy without gangrene; S81.802A Unspecified open wound, left lower leg, initial encounter; Z79.890 Hormone replacement therapy; M35.1 Other overlap syndromes; Z79.84 Long term (current) use of oral hypoglycemic drugs; X58.XXXA Exposure to other specified factors, initial encounter; I50.32 Chronic diastolic (congestive) heart failure; I87.8 Other specified disorders of veins; Z79.899 Other long term (current) drug therapy; Z79.52 Long term (current) use of systemic steroids